=== PATIENT | female | born 1975 | race Caucasian/White ===

== ENCOUNTER 2023-04-22 08:29 | Outpatient (OUT) | payer BC, MEDICAID, SELFPAY ==
[2023-04-22 09:13] LABS: Estimated Average Glucose 103 mg/dL; Glycohemoglobin A1C 5.2 % (4.5-6.2)
[2023-04-22 09:24] LABS: Chol HDL Ratio 4.7; Cholesterol 229 mg/dL (<=200); HDL Cholesterol 49 mg/dL (40-60); Thyroid Stimulating Hormone 5.014 uIU/mL (0.358-3.740); Triglycerides 113 mg/dL (<=150); VLDL CHOLESTEROL 22.6 mg/dL
[2023-04-22 09:44] LABS: Free T4 0.91 ng/dL (0.76-1.46)
== END 2023-04-22 08:30 | disposition home or self-care (01) ==
PROVIDERS: PCP Nurse Practitioner; Visit Provider Nurse Practitioner
DX: E03.9 Hypothyroidism, unspecified (principal); E78.5 Hyperlipidemia, unspecified; E11.9 Type 2 diabetes mellitus without complications
CPT/HCPCS: 36415; 80061; 83036; 84439; 84443

== ENCOUNTER 2023-06-25 08:57 | Outpatient (OUT) | payer BC, MEDICAID, SELFPAY ==
[2023-06-25 10:57] LABS: Alanine Aminotransferase 35 U/L (14-59); Aspartate Amino Transferase 25 U/L (15-37); Chol HDL Ratio 2.7; Cholesterol 163 mg/dL (<=200); HDL Cholesterol 61 mg/dL (40-60); Thyroid Stimulating Hormone 0.345 uIU/mL (0.358-3.740); Triglycerides 87 mg/dL (<=150); VLDL CHOLESTEROL 17.4 mg/dL
[2023-06-25 10:59] LABS: Free T4 1.07 ng/dL (0.76-1.46)
== END 2023-06-25 08:58 | disposition home or self-care (01) ==
LOC: LAB 08:59
PROVIDERS: PCP Nurse Practitioner; Visit Provider Nurse Practitioner
DX: E03.9 Hypothyroidism, unspecified (principal); E78.5 Hyperlipidemia, unspecified
CPT/HCPCS: 36415; 80061; 84439; 84443; 84450; 84460

== ENCOUNTER 2023-08-09 08:38 | Outpatient (OUT) | payer BC, MEDICAID, SELFPAY ==
--- NOTE | 2023-08-09 08:45 | CT_ITS ---
The [address] [address] Patient Name: JONNATHAN SEPULVEDA MRN: [id number] date: 1975 Sex: F Assigned Patient Location: CT Current Patient Location: CT Accession/Order Number: [id number] Exam Date: 08/09/2023 07:50 Report Date: 08/09/2023 10:50 At the request of: ELSI SUAREZ Procedure: CT sinus wo con EXAMINATION: CT sinus wo con HISTORY: Chronic Sinusitis Maxillary Sinuses J32.0 COMPARISON: No relevant comparison available. TECHNIQUE: Axial and Coronal CT images were created without and/or with IV contrast as indicated by examination type. Dose reduction techniques were achieved by using automated exposure control and/or adjustment of mA and/or kV according to patient size and/or use of iterative reconstruction technique. FINDINGS: MAXILLARY SINUSES: No significant mucosal thickening or fluid. Infundibula are patent. No significant anomalous inferior orbital ethmoid (Maria Antonia) air cells. ETHMOID SINUSES: No significant mucosal thickening or fluid. Fovea ethmoidali and lamina papyracea are symmetric and intact. SPHENOID SINUSES: No significant mucosal thickening or fluid. Sphenoethmoidal recesses are patent. No bony dehiscence. FRONTAL SINUSES: No significant mucosal thickening or fluid. Frontal recesses are patent. NASAL FOSSA: deviation of the nasal septum. No yvette bullosa or paradoxical turbinates are identified. OTHER: Negative. Limited views of the skull base and orbits are unremarkable. CT/CT sinus wo con IMPRESSION: 1. No CT evidence of acute or chronic sinusitis. Electronically authenticated by: REG ROYAL Date: 08/09/2023 10:50
--- OUTSIDE RECORDS SUMMARY | 2023-09-14 18:43 | XMS_ITS | CCD ---
Author Name Unknown Address [address] [place] [address] Organization [facility] Care Team Providers Care Distribution Dispatcher Name Role Phone DevoarjhonKaylie hernandes Unavailable Mona Morin Unavailable NO FAMILY, PHYSICIAN Primary Care Provider Unava CHRISTIANO Iqbal Attending Provider [phone] MONA MORIN Primary Care Unavailable [facility], DR ELIAS Attending Unavailable M[facility], DR ELIAS Admitting Unavailable KENDRA SUAREZ ELSI Consulting Unavailable MONA MORIN Consulting Unavailable MONA MORIN Primary Care Unavailable MONA MORIN Admitting Unavailable MONA MORIN Attending Unavailable MONA MORIN Primary Care Unavailable MONA MORIN Admitting Unavailable MONA MORIN Attending Unavailable MONA MORIN Consulting Unavailable Priyanka Jones Unavailable ELSI SUAREZ Attending Unavailable Allergies Allergy Classification Reported Allergen(s) Allergy Type Date of Onset Reaction(s) Facility (5 sources) Cephalexin Drug Allergy rash [facility] Other (12 sources) Cephalexin Drug Allergy rash [facility] Other (1 source) Sulfamethoxazole / Trimethoprim Drug Allergy 3 [facility] Medications Current Medications Medication Drug Class(es) Dates Sig (Normalized) Sig (Original) [id number] 200 actuat albuterol 0.09 mg/actuat metered dose inhaler (6 sources) beta2-Adrenergic Agonist Start: 11-17-2022 take 2 puff(s) by inhalation every four hours as needed Albuterol Sulfate HFA 108 (90 Base) MCG/ACT 2 puffs as needed Inhalation every 4 hrs Oct, Active Start: 09-04-2021 take 2 puff(s) by in halation every four to six hours as needed Albuterol Sulfate HFA 108 (90 Base) MCG/ACT 2 puffs as needed Inhalation every 4-6 hours for 14 days Aug, Active amitriptyline hydrochloride 25 mg oral tablet (11 sources) Tricyclic Antidepressant take 1 tablet by mouth every twenty-four hours amoxicillin 500 mg oral capsule (1 source) Penicillin-class Antibacterial Start: take 2 capsules by mouth every twelve hours Amoxicillin 500 MG 2 capsules Orally Twice a day for 7 days Apr, Active benzonatate 100 mg oral capsule (1 source) Non-narcotic Antitussive Start: take 1 capsule by mouth three times daily as needed Tessalon Perles 100 MG 1 capsule as needed Orally Three times a day for 7 days Aug, Active brompheniramine maleate 0.4 mg/ml / dextromethorphan hydrobromide 2 mg/ml / pseudoephedrine hydrochloride 6 mg/ml oral solution (2 sources) alpha-Adrenergic Agonist, Uncompetitive Z-lffdxi-T-aspartate Receptor Antagonist, Sigma-1 Agonist Start: take 10 mL by mouth every six hours Pseudoeph-Bromphe n-DM 30-2-10 MG/5ML 10 mL Orally every 6 hours for 5 days Aug, Active Diclofenac (11 sources) Nonsteroidal Anti-inflammatory Drug Diclofenac Activ e gabapentin 300 mg oral capsule (11 sources) Anti-epileptic Agent take 1 capsule by mouth every twenty-four hours Handicap placards as directed (8 sources) Start: Handicap placards as directed use as directed to 07/13/2027 as directed as directed Jun, Active lisinopril 2.5 mg oral tablet (11 sources) Angiotensin Converting Enzyme Inhibitor Start: take 1 tablet by mouth every twenty-four hours Lisinopril 2.5 MG 1 tablet Orally Once a day for 30 day(s) Feb, Active meloxicam 15 mg oral tablet (11 sources) Nonsteroidal Anti-inflammatory Drug Start: take 1 tablet by mouth every twenty-four hours 24 hr metFORMIN hydrochloride 500 mg extended release oral tablet (12 sources) Biguanide Start: mometasone furoate 0.05 mg/actuat metered dose nasal spray (17 sources) Corticosteroid Start: 021 take 2 spray(s) nasal route once daily Multi Vitamin/Minerals (17 sources) Multi Vitamin/Mi nerals Orally Active omeprazole 20 mg delayed release oral capsule (17 sources) Proton Pump Inhibitor Start: 07-02-2020 take 1 capsule by mouth once daily Omeprazole 20 MG 1 capsule 30 minutes before morning meal Orally Once a day for 30 days Jun, Active One Touch Glucometer (17 sources) One Touch Glucom eter SQ use 3 times daily for 30 days Active pantoprazole 20 mg delayed release oral tablet (17 sources) Proton Pump Inhibitor Start: 02-04-2021 take 1 tablet by mouth every twenty-four hours prednisoLONE acetate 10 mg/ml ophthalmic suspension (17 sources) Corticosteroid Start: 08-18-2021 take 1 drop(s) into the eye(s) three times daily sertraline 100 mg oral tablet (17 sources) Serotonin Reuptake Inhibitor take 1 tablet by mouth every twenty-four hours Zoloft 100 MG 1 tablet Orally Once a day for 30 day(s) Active tiZANidine 4 mg oral tablet (20 sources) Central alpha-2 Adrenergic Agonist Start: 09-29-2021 take 1 tablet by mouth every eight hours Zanaflex Active triamcinolone acetonide 5 mg /ml topical cream (20 sources) Corticosteroid Start: 08-18-2021 Start: 08-20-2020 KENALOG - 10 m g Jul, 40 mg Start: 08-10-2020 KENALOG - 10 m g Jul, 40 mg Completed/Discontinued Medications Medication Drug Class(es) Dates Sig (Normalized) Sig (Original) azithromycin 250 mg oral tablet (6 sources) Macrolide Antimicrobial Start: 11-17-2022 Azithromycin 250 MG 2 tablets on the first day, then 1 tablet daily for 4 days Orally Once a day for 5 day(s) Oct, Not-Taking Start: 09-04-2021 Azithromycin 2 50 MG 2 tablet on the first day, then 1 tablet daily for 4 days Orally Once a day for 5 day(s) Aug, Active Ketorolac (13 sources) Nonsteroidal Anti-inflammatory Drug, Cyclooxygenase Inhibitor Start: 08-20-2020 Toradol per 15 mg Jul, 30 mg methylPREDNISolone 4 mg oral tablet (13 sources) Corticosteroid Start: 11-17-2022 methylPREDNISolone 4 MG as directed Orally Once a day for 6 days Oct, Not-Taking Start: 09-29-2021 take 4 mg by mouth once daily Start: 08-31-2021 Medrol (Royce) 4 MG as directed Orally for daily dose take half with breakfast half with dinner for 6 days Aug, Active Problems Active Problems Problem Classification Problem Date Documented Date Episodic/Chronic Allergic reactions (17 sources) Atopic dermatitis; Translations: [Atopic dermatitis, unspecified] Chronic Anxiety disorders (11 sources) Generalized anxiety disorder; Translations: [Generalized anxiety disorder] Chronic Asthma (17 sources) Exacerbation of asthma; Translations: [Unspecified asthma with (acute) exacerbation] Chronic Chronic obstructive pulmonary disease and bronchiectasis (2 sources) Bronchitis, not specified as acute or chronic Onset: 08-31-2021 Resolved: 08-31-2021 Episodic Esophageal disorders (20 sources) Gastroesophageal reflux disease; Translations: [Gastro-esophageal reflux disease without esophagitis] Onset: 11-10-2021 Resolved: 02-03-2022 Chronic Essential hypertension (17 sources) Essential hypertension; Translations: [Essential (primary) hypertension] Onset: 03-31-2022 Chronic Headache; including migraine (17 sources) Migraine aura without headache ; Translations: [Migraine with aura, not intractable, without status migrainosus] Chronic Malaise and fatigue (17 sources) Fatigue; Translations: [Chronic fatigue, unspecified] Chronic Malaise and fatigue (1 source) Other fatigue; Translations: [OTHER FATIGUE] Onset: 01-28-2023 Episodic Nutritional deficiencies (17 sources) Vitamin D deficiency; Translations: [Vitamin D deficiency, unspecified] Chronic Other connective tissue disease (11 sources) Fibromyalgia; Translations: [Fibromyalgia] Episodic Other connective tissue disease (1 source) Fibromyalgia Episodic Other endocrine disorders (17 sources) Polycystic ovaries; Translations: [Polycystic ovarian syndrome] Chronic Other endocrine disorders (17 sources) Hypoglycemia; Translations: [Hypoglycemia, unspecified] Chronic Other endocrine disorders (7 sources) Polycystic ovarian syndrome; Translations: [POLYCYSTIC OVARIAN SYNDROME] Onset: 02-03-2022 Resolved: 02-03-2022 Chronic Other endocrine disorders (5 sources) Hypoglycemia, unspecified; Translations: [HYPOGLYCEMIA UNSPECIFIED] Onset: 11-17-2022 Chronic Other nutritional; endocrine; and metabolic disorders (17 sources) Obese class II; Translations: [Body mass index (BMI) 35.0-35.9, adult] Chronic Other nutritional; endocrine; and metabolic disorders (17 sources) Obesity; Translations: [Obesity, unspecified] Chronic Other nutritional; endocrine; and metabolic disorders (1 source) Obesity, unspecified; Translations: [OBESITY UNSPECIFIED] Onset: 01-28-2023 Chronic Other skin disorders (17 sources) Hirsutism; Translations: [Hirsutism] Episodic Other skin disorders (1 source) Other nail disorders Episodic Other upper respiratory infections (1 source) Acute pharyngitis, unspecified Episodic Otitis media and related conditions (1 source) Unspecified nonsuppurative otitis media, right ear Episodic Thyroid disorders (1 source) Hypothyroidism, unspecified; Translations: [HYPOTHYROIDISM UNSPECIFIED] Onset: 01-28-2023 Chronic Past or Other Problems Problem Classification Problem Date Documented Date Episodic/Chronic Immunizations and screening for infectious disease (1 source) Contact with and (suspected) exposure to other viral communicable diseases Onset: 08-31-2021 Resolved: 08-31-2021 Episodic Other non-traumatic joint disorders (1 source) Pain in right hip Onset: 04-02-2022 Resolved: 04-02-2022 Episodic Spondylosis; intervertebral disc disorders; other back problems (2 sources) Sacrococcygeal disorders, not elsewhere classified Onset: 11-10-2021 Resolved: 12-10-2021 Episodic Results Test Name Value Interpretation Reference Range Facil ity Quick Strepon 05-03-2023 S. pyogenes Org specific cx Ql (Throat) Negative [facility] [employer] Other Quick Strep [facility] [employer] Other INSULINon 01-26-2023 Insulin 21.3 uIU/mL Normal 2.6-24.9 [facility] Comment on above: Performed By: #### I NSULIN #### [facility] [address] [place] [address] Dr. Yvan Manzano CORTISOLon 01-23-2023 Cortisol 11.2 ug/dL Normal 6.2-19.4 [facility] Comment on above: Result Comment: [place] Note: The reference interval and flagging for this test is for an AM collection. If this is a PM collection please use: Cortisol PM: 2.3-11.9 [facility] also offers: 153606: Cortisol- AM [id number]: Cortisol- PM Performed By: #### C BC #### [facility] [address] [place] [address] Dr. Yvan Manzano CBC AUTO DIFFon 01-22-2023 BASO # 0.1 103/ul Normal 0.0-0.1 [facility] Comment on above: Performed By: #### C BC #### [facility] [address] [place] [address] Dr. Yvan Manzano Basophils/100 WBC (Bld) 0.9 % Normal 0.2-2.0 [facility] Comment on above: Performed By: #### C BC #### [facility] [address] [place] [address] Dr. Yvan Manzano EO # 0.3 103/ul Normal 0.0-0.7 [facility] Comment on above: Performed By: #### C BC #### [facility] [address] [place] [address] Dr. Yvan Manzano Eosinophils/100 WBC (Bld) 5.7 % Normal 0.9-7.0 [facility] Comment on above: Performed By: #### C BC #### [facility] [address] [place] [address] Dr. Yvan Manzano Erythrocyte distribution wid th (RBC) [Ratio] 14.6 % Normal 11.0-15.0 [facility] Comment on above: Performed By: #### C BC #### [facility] [address] [place] [address] Dr. Yvan Manzano Hematocrit (Bld) [Volume fraction] 36.8 % Normal 3 6.0-48.0 [facility] Comment on above: Performed By: #### C BC #### [facility] [address] [place] [address] Dr. Yvan Manzano Hemoglobin (Bld) [Mass/Vol] 11.4 g/dL Critically low 12.0 -16.0 [facility] Comment on above: Performed By: #### C BC #### [facility] [address] [place] [address] Dr. Yvan Manzano IG # 0.02 10e3/ul Normal 0.00-0.03 [facility] Comment on above: Performed By: #### C BC #### [facility] [address] [place] [address] Dr. Yvan Manzano IG % 0.3 % Normal 0.0-0.5 [facility] Comment on above: Performed By: #### C BC #### [facility] [address] [place] [address] Dr. Yvan Manzano LYMPH # 1.5 103/ul Normal 1.2-3.8 [facility] Comment on above: Performed By: #### C BC #### [facility] [address] [place] [address] Dr. Yvan Manzano Lymphocytes/100 WBC (Bld) 25.3 % Normal 20.5-60.0 [facility] Comment on above: Performed By: #### C BC #### [facility] [address] [place] [address] Dr. Yvan Manzano MANUAL DIFF REQ NO Normal [facility] Comment on above: Performed By: #### C BC #### [facility] [address] [place] [address] Dr. Yvan Manzano MCH (RBC) [Entitic mass] 25.2 pg Critically low 26.7-34 .0 [facility] Comment on above: Performed By: #### C BC #### [facility] [address] [place] [address] Dr. Yvan Manzano MCHC (RBC) [Mass/Vol] 31.0 g/dL Normal 29.9-35.2 [facility] Comment on above: Performed By: #### C BC #### [facility] [address] [place] [address] Dr. Yvan Manzano MCV (RBC) [Entitic vol] 81.4 fL Normal 81.0-99.0 [facility] Comment on above: Performed By: #### C BC #### [facility] [address] [place] [address] Dr. Yvan Manzano MONO # 0.4 103/ul Normal 0.3-0.8 [facility] Comment on above: Performed By: #### C BC #### [facility] [address] [place] [address] Dr. Yvan Manzano Monocytes/100 WBC (Bld) 7.7 % Normal 1.7-12.0 [facility] Comment on above: Performed By: #### C BC #### [facility] [address] [place] [address] Dr. Yvan Manzano NEUT # 3.5 103/ul Normal 1.4-6.5 [facility] Comment on above: Performed By: #### C BC #### [facility] [address] [place] [address] Dr. Yvan Manzano Neutrophils/100 WBC (Bld) 60.1 % Normal 43.0-75.0 [facility] Comment on above: Performed By: #### C BC #### [facility] [address] [place] [address] Dr. Yvan Manzano Platelet mean volume (Bld) [Entitic vol] 8.8 fL Critically low 9.5-13.5 [facility] Comment on above: Performed By: #### C BC #### [facility] [address] [place] [address] Dr. Yvan Manzano PLT 347 103/ul Normal 150-450 [facility] Comment on above: Performed By: #### C BC #### [facility] [address] [place] [address] Dr. Yvan Manzano RBC 4.52 106/ul Normal 4.20-5.40 [facility] Comment on above: Performed By: #### C BC #### [facility] [address] [place] [address] Dr. Yvan Manzano WBC 5.7 103/ul Normal 4.0-11.0 [facility] Comment on above: Performed By: #### C BC #### [facility] [address] [place] [address] Dr. Yvan Manzano FREE T4on 01-22-2023 Free T4 [Mass/Vol] 0.84 ng/dL Normal 0.76-1.46 [facility] Comment on above: Performed By: #### F T4 #### [facility] [address] [place] [address] Dr. Yvan Manzano LIPID PROFILEon 01-22-2023 CHOL-HDL RATIO NORM SEE BELOW Normal [facility] Comment on above: Result Comment: 3.3 - 4.4 LOW RISK 4.4 - 7.1 AVERAGE RISK 7.1 - 11.0 MODERATE RISK >11.0 HIGH RISK Performed By: #### T SH, LIPID #### [facility] [address] [place] [address] Dr. Yvan Manzano Cholesterol [Mass/Vol] 264 mg/dL Critically high <=200 [facility] Comment on above: Performed By: #### T SH, LIPID #### [facility] [address] [place] [address] Dr. Yvan Manzano Cholesterol in HDL [Mass/Vol] 52 mg/dL Normal 40-60 [facility] Comment on above: Performed By: #### T SH, LIPID #### [facility] [address] [place] [address] Dr. Yvan Manzano Cholesterol in LDL [Mass/Vol] 173.6 mg/dL Normal [facility] Comment on above: Performed By: #### T SH, LIPID #### [facility] [address] [place] [address] Dr. Yvan Manzano Cholesterol.total/Cholestero l in HDL [Mass ratio] 5.1 {ratio} Normal [facility] Comment on above: Performed By: #### T SH, LIPID #### [facility] [address] [place] [address] Dr. Yvan Manzano HDL NORMAL > or = 60 mg/dl - LO W CARDIOVASCULAR RISK <40 mg/dl - HIGH CARDIOVASCULAR RISK Normal [facility] Comment on above: Performed By: #### T SH, LIPID #### [facility] [address] [place] [address] Dr. Yvan Manzano LDL CALC NORMAL SEE BELOW Normal [facility] Comment on above: Result Comment: <100 mg/dl OPTIMAL 100 - 129 mg/dl NEAR OR ABOVE OPTIMAL 130 - 159 mg/dl BORDERLINE HIGH 160 - 189 mg/dl HIGH >190 mg/dl VERY HIGH Performed By: #### T SH, LIPID #### [facility] [address] [address] [address] Yvan Manzano Triglyceride [Mass/Vol] 192 mg/dL Critically high <=150 [facility] Comment on above: Performed By: #### T SH, LIPID #### [facility] [address] [place] [address] Dr. Yvan Manzano VLDL CALC 38.4 mg/dL Normal [facility] Comment on above: Performed By: #### T SH, LIPID #### [facility] [address] [place] [address] Dr. Yvan Manzano TSHon 01-22-2023 TSH 5.749 uIU/mL Critically high 0.358-3.740 [facility] Comment on above: Performed By: #### T SH, LIPID #### [facility] [address] [place] [address] Dr. Yvan Manzano GLYCOHEMOGLOBIN A1Con 2022 ADA RECOMMENDATION SEE BELOW Normal [facility] Comment on above: Result Comment: ADA RECOMMENDED LIMIT 4.0 - 6.0 ADA THERAPEUTIC TARGET < 7.0 ACTION SUGGESTED > 7.0 Performed By: #### A 1C #### [facility] [address] [address] [address] Yvan Manzano Glucose [Mass/Vol] 137 mg/dL Normal [facility] Comment on above: Performed By: #### A 1C #### [facility] [address] [place] [address] Dr. Yvan Manzano HbA1c (Bld) [Mass fraction] 6.4 % Critically high 4.5 -6.2 [facility] Comment on above: Performed By: #### A 1C #### [facility] [address] [place] [address] Dr. Yvan Manzano PROF 14(COMP METB)on 023 Albumin [Mass/Vol] 3.4 g/dL Normal 3.4-5.0 [facility] Comment on above: Performed By: #### C MP #### [facility] [address] [place] [address] Dr. Yvan Manzano Albumin/Globulin [Mass ratio] 0.9 {ratio} Normal [facility] Comment on above: Performed By: #### C MP #### [facility] [address] [place] [address] Dr. Yvan Manzano ALP [Catalytic activity/Vol] 74 U/L Normal 46-116 [facility] Comment on above: Performed By: #### C MP #### [facility] [address] [place] [address] Dr. Yvan Manzano ALT [Catalytic activity/Vol] 25 U/L Normal 14-59 [facility] Comment on above: Performed By: #### C MP #### [facility] [address] [place] [address] Dr. Yvan Manzano Anion gap [Moles/Vol] 9.4 mmol/L Normal [facility] Comment on above: Performed By: #### C MP #### [facility] [address] [place] [address] Dr. Yvan Manzano AST [Catalytic activity/Vol] 17 U/L Normal 15-37 [facility] Comment on above: Performed By: #### C MP #### [facility] [address] [place] [address] Dr. Yvan Manzano Bilirubin [Mass/Vol] 0.1 mg/dL Critically low 0.2-1.0 [facility] Comment on above: Performed By: #### C MP #### [facility] [address] [place] [address] Dr. Yvan Manzano Calcium [Mass/Vol] 9.2 mg/dL Normal 8.5-10.1 [facility] Comment on above: Performed By: #### C MP #### [facility] [address] [address] [address] Yvan Manzano Chloride [Moles/Vol] 101 mmol/L Normal 98-107 [facility] Comment on above: Performed By: #### C MP #### [facility] [address] [address] [address] Yvan Manzano CO2 [Moles/Vol] 30.4 mmol/L Normal 21.0-32.0 [facility] Comment on above: Performed By: #### C MP #### [facility] [address] [address] [address] Yvan Manzano Creatinine [Mass/Vol] 0.71 mg/dL Normal 0.55-1.02 [facility] Comment on above: Performed By: #### C MP #### [facility] [address] [address] [address] Yvan Manzano EGFR-AF MALTESE >60 Normal >=60 [facility] Comment on above: Performed By: #### C MP #### [facility] [address] [address] [address] Yvan Manzano EGFR-NON AF MALTESE >60 Normal >=60 [facility] Comment on above: Performed By: #### C MP #### [facility] [address] [address] [address] Yvan Manzano Globulin (S) [Mass/Vol] 4.0 g/dL Normal [facility] Comment on above: Performed By: #### C MP #### [facility] [address] [address] [address] Yvan Manzano Glucose [Mass/Vol] 138 mg/dL Critically high 74-106 [facility] Comment on above: Performed By: #### C MP #### [facility] [address] [address] [address] Yvan Manzano Potassium [Moles/Vol] 3.8 mmol/L Normal 3.5-5.1 [facility] Comment on above: Performed By: #### C MP #### [facility] [address] [address] [address] Yvan Manzano Protein [Mass/Vol] 7.4 g/dL Normal 6.4-8.2 [facility] Comment on above: Performed By: #### C MP #### [facility] [address] [address] [address] Yvan Manzano Sodium [Moles/Vol] 137 mmol/L Normal 136-145 [facility] Comment on above: Performed By: #### C MP #### [facility] [address] [address] [address] Yvan Manzano Urea nitrogen [Mass/Vol] 13.0 mg/dL Normal 7.0-18.0 [facility] Comment on above: Performed By: #### C MP #### [facility] [address] [place] [address] Dr. Yvan Manzano Urea nitrogen/Creatinine [Mass ratio] 18.3 mg/mg Normal [facility] Comment on above: Performed By: #### C MP #### [facility] [address] [place] [address] Dr. Yvan Manzano LIPID PROFILEon 03-31-2022 CHOL-HDL RATIO NORM SEE BELOW Normal [facility] Comment on above: Result Comment: 3.3 - 4.4 LOW RISK 4.4 - 7.1 AVERAGE RISK 7.1 - 11.0 MODERATE RISK >11.0 HIGH RISK Performed By: #### C MP, LIPID #### [facility] [address] [address] [address] Yvan Manzano Cholesterol [Mass/Vol] 229 mg/dL Critically high <=200 [facility] Comment on above: Performed By: #### C MP, LIPID #### [facility] [address] [address] [address] Yvan Manzano Cholesterol in HDL [Mass/Vol] 51 mg/dL Normal 40-60 [facility] Comment on above: Performed By: #### C MP, LIPID #### [facility] [address] [address] [address] Yvan Manzano Cholesterol in LDL [Mass/Vol] 150.4 mg/dL Normal [facility] Comment on above: Performed By: #### C MP, LIPID #### [facility] [address] [address] [address] Yvan Manzano Cholesterol.total/Cholestero l in HDL [Mass ratio] 4.5 {ratio} Normal [facility] Comment on above: Performed By: #### C MP, LIPID #### [facility] [address] [address] [address] Yvan Manzano HDL NORMAL > or = 60 mg/dl - LO W CARDIOVASCULAR RISK <40 mg/dl - HIGH CARDIOVASCULAR RISK Normal [facility] Comment on above: Performed By: #### C MP, LIPID #### [facility] [address] [place] [address] Dr. Yvan Manzano LDL CALC NORMAL SEE BELOW Normal The [facility] Comment on above: Result Comment: <100 mg/dl OPTIMAL 100 - 129 mg/dl NEAR OR ABOVE OPTIMAL 130 - 159 mg/dl BORDERLINE HIGH 160 - 189 mg/dl HIGH >190 mg/dl VERY HIGH Performed By: #### C MP, LIPID #### [facility] [address] [place] [address] Dr. Yvan Manzano Triglyceride [Mass/Vol] 138 mg/dL Normal <=150 [facility] Comment on above: Performed By: #### C MP, LIPID #### [facility] [address] [address] [address] Yvan Manzano VLDL CALC 27.6 mg/dL Normal The [facility] Comment on above: Performed By: #### C MP, LIPID #### [facility] [address] [place] [address] Dr. Yvan Manzano MICROALB CREAT RATIO RANDOMo n 03-31-2022 mALB 1.4 mg/L Normal <=30.0 The [facility] Comment on above: Performed By: #### M CRR #### [facility] [address] [place] [address] Dr. Yvan Manzano MALB CR RATIO 6.0 mg/g Normal 0.0-29.9 The [facility] Comment on above: Performed By: #### M CRR #### [facility] [address] [place] [address] Dr. Yvan Manzano MALB CR RATIO RANGE SEE BELOW Normal [facility] Comment on above: Result Comment: NO M ICROALBUMINURIA 0-29 MG/G CLINICAL MICROALBUMINURIA 30-300 MG/G MACROALBUMINURIA >300 MG/G Performed By: #### M CRR #### [facility] [address] [address] [address] Yvan Manzano URINE CREAT 232.88 mg/dL Normal 20.00-300.00 [facility] Comment on above: Performed By: #### M CRR #### [facility] [address] [place] [address] Dr. Yvan Manzano PROF 14(COMP METB)on 022 Albumin [Mass/Vol] 3.6 g/dL Normal 3.4-5.0 [facility] Comment on above: Performed By: #### C MP, LIPID #### [facility] [address] [place] [address] Dr. Yvan Manzano Albumin/Globulin [Mass ratio] 0.9 {ratio} Normal [facility] Comment on above: Performed By: #### C MP, LIPID #### [facility] [address] [place] [address] Dr. Yvan Manzano ALP [Catalytic activity/Vol] 63 U/L Normal 46-116 [facility] Comment on above: Performed By: #### C MP, LIPID #### [facility] [address] [place] [address] Dr. Yvan Manzano ALT [Catalytic activity/Vol] 33 U/L Normal 14-59 [facility] Comment on above: Performed By: #### C MP, LIPID #### [facility] [address] [place] [address] Dr. Yvan Manzano Anion gap [Moles/Vol] 11.7 mmol/L Normal [facility] Comment on above: Performed By: #### C MP, LIPID #### [facility] [address] [place] [address] Dr. Yvan Manzano AST [Catalytic activity/Vol] 23 U/L Normal 15-37 [facility] Comment on above: Performed By: #### C MP, LIPID #### [facility] [address] [place] [address] Dr. Yvan Manzano Bilirubin [Mass/Vol] 0.2 mg/dL Normal 0.2-1.0 [facility] Comment on above: Performed By: #### C MP, LIPID #### [facility] [address] [place] [address] Dr. Yvan Manzano Calcium [Mass/Vol] 9.5 mg/dL Normal 8.5-10.1 [facility] Comment on above: Performed By: #### C MP, LIPID #### [facility] [address] [place] [address] Dr. Yvan Manzano Chloride [Moles/Vol] 102 mmol/L Normal 98-107 [facility] Comment on above: Performed By: #### C MP, LIPID #### [facility] [address] [place] [address] Dr. Yvan Manzano CO2 [Moles/Vol] 28.0 mmol/L Normal 21.0-32.0 [facility] Comment on above: Performed By: #### C MP, LIPID #### [facility] [address] [place] [address] Dr. Yvan Manzano Creatinine [Mass/Vol] 0.71 mg/dL Normal 0.55-1.02 [facility] Comment on above: Performed By: #### C MP, LIPID #### [facility] [address] [place] [address] Dr. Yvan Manzano EGFR-AF MALTESE >60 Normal >=60 [facility] Comment on above: Performed By: #### C MP, LIPID #### [facility] [address] [place] [address] Dr. Yvan Manzano EGFR-NON AF MALTESE >60 Normal >=60 [facility] Comment on above: Performed By: #### C MP, LIPID #### [facility] [address] [place] [address] Dr. Yvan Manzano Globulin (S) [Mass/Vol] 4.0 g/dL Normal T [facility] Comment on above: Performed By: #### C MP, LIPID #### [facility] [address] [address] [address] Yvan Manzano Glucose [Mass/Vol] 87 mg/dL Normal 74-106 [facility] Comment on above: Performed By: #### C MP, LIPID #### [facility] [address] [address] [address] Yvan Manzano Potassium [Moles/Vol] 3.7 mmol/L Normal 3.5-5.1 [facility] Comment on above: Performed By: #### C MP, LIPID #### [facility] [address] [address] [address] Yvan Manzano Protein [Mass/Vol] 7.6 g/dL Normal 6.4-8.2 [facility] Comment on above: Performed By: #### C MP, LIPID #### [facility] [address] [address] [address] Yvan Manzano Sodium [Moles/Vol] 138 mmol/L Normal 136-145 [facility] Comment on above: Performed By: #### C MP, LIPID #### [facility] [address] [address] [address] Yvan Manzano Urea nitrogen [Mass/Vol] 14.0 mg/dL Normal 7.0-18.0 [facility] Comment on above: Performed By: #### C MP, LIPID #### [facility] [address] [place] [address] Dr. Yvan Manzano Urea nitrogen/Creatinine [Mass ratio] 19.7 mg/mg Normal [facility] Comment on above: Performed By: #### C MP, LIPID #### [facility] [address] [address] [address] Yvan Manzano XR hip RT min 2V(w/wo pelvis )*on 03-26-2022 XR hip RT min 2V(w/wo pelvis)* [facility] [place] [address] XRay Report Signed Patient: Tatiana Sepulveda MR#: [id number] : 1975 Acct:[id number] Age/Sex: 46 / F ADM Date: 03/26/22 Loc: XDCLY Room: Type: [facility] CLI Attending Dr: Mona ALVARADO Copies to: MONA MORIN Ordering Provider: MONA MORIN Date of Service: 03/26/22 XR/XR hip RT min 2V(w/wo pelvis)*: Right hip pain 2 views RIGHT hip single view pelvisplain film COMPARISON:None HISTORY:Lateral RIGHT hip pain for one year No fracture, dislocation or focal soft tissue abnormality seen.No significant degeneration. Articular surfaces preserved. XR/XR hip RT min 2V(w/wo pelvis)* IMPRESSION:Unremarkable exam Impression dictated by: Michael Harper M.D.03/26/2022 3:38 PM Dictation Location: [place] [address] Transcribed By: [facility] 03/26/22 1538 Dictated By: Michael Harper DO 03/26/22 1534 Signed By: 03/26/22 1538 Normal [facility] XR sacrum coccyx min 2Von XR sacrum coccyx min 2V [facility] [place] [address] XRay Report Signed Patient: Tatiana Sepulveda MR#: [id number] : 1975 Acct:[id number] Age/Sex: 45 / F ADM Date: 09/29/21 Loc: XDUCLY Room: [facility] Attending Dr: Mona ALVARADO Ordering Provider: MONA MORIN Date of Service: 09/29/21 XR/XR sacrum coccyx min 2V: Sacral back pain Copies to: MONA MORIN XR sacrum coccyx min 2V 09/29/2021 3:42 PM SIGNS AND SYMPTOMS: Fall injuring coccyx with pain along the anterior aspect of the coccyx. Previous history of coccygeal fracture PROTOCOL: Frontal and lateral radiographs of the sacrum and coccyx COMPARISON: None FINDINGS: There is mild degenerative change of the sacroiliac joints. There is no evidence of displaced fracture. The bony ring of the pelvis is intact. The sacrum and coccyx are intact. XR/XR sacrum coccyx min 2V IMPRESSION: No acute bony injury. Impression dictated by: Laron Villegas M.D.09/29/2021 4:16 PM Dictation Location: [place] [address] Transcribed By: [facility] 09/29/21 161 Dictated By: Laron Villegas II, MD 09/29/211612 Signed By: 09/29/21 161 [facility] COVID Quick Testingon 2020 Result Negative [facility] [employer] Other Vital Signs Date Time Vital Sign Value Performing Clinician Facility 05-03-2023 09:05-0400 Body height 157.48 cm Priyankarogelio Jones Other [facility] Other 05-03-2023 09:05-0400 Body mass index (BMI) [Ratio] 35.02 kg/m2 Priyanka Karen Other [facility] Other 05-03-2023 09:05-0400 Body temperature 97.5 [degF] Priyanka Jones Other [facility] Other 05-03-2023 09:05-0400 Body weight 86.86 kg Priyanka Jones Other [facility] Other 05-03-2023 09:05-0400 Diastolic blood pressure 76 mm[Hg] Priyanka Jones Other [facility] Other 05-03-2023 09:05-0400 Respiratory rate 18 /min Priyanka Jones Other [facility] Other 05-03-2023 09:05-0400 SaO2% (BldA) [Mass fraction] 100 % Priyanka Jones Other [facility] Other 05-03-2023 09:05-0400 Systolic blood pressure 117 mm[Hg] Priyanka Jones Other [facility] Other 11-17-2022 11:30-0500 Body height 157.48 cm Mona Morin Other [facility] Other 11-17-2022 11:30-0500 Body mass index (BMI) [Ratio] 35.3 kg/m2 Mona Yeungault Other [facility] Other 11-17-2022 11:30-0500 Body temperature 98.7 [degF] Mona Yeungault Other [facility] Other 11-17-2022 11:30-0500 Body weight 87.54 kg Mona Morin Other [facility] Other 11-17-2022 11:30-0500 Respiratory rate 18 /min Mona Morin Other [facility] Other 11-17-2022 11:30-0500 SaO2% (BldA) [Mass fraction] 98 % Mona Morin Other [facility] Other 09-28-2022 16:30-0500 Body height 157.48 cm Mona Yeungault Other [facility] Other 09-28-2022 16:30-0500 Body mass index (BMI) [Ratio] 35.3 kg/m2 Mona Shane Other [facility] Other 09-28-2022 16:30-0500 Body temperature 98 [degF] Mona Morin Other [facility] Other 09-28-2022 16:30-0500 Body weight 87.54 kg Mona Morin Other [facility] Other 09-28-2022 16:30-0500 Diastolic blood pressure 79 mm[Hg] Mona Yeungault Other [facility] Other 09-28-2022 16:30-0500 Respiratory rate 18 /min Mona Morin Other [facility] Other 09-28-2022 16:30-0500 SaO2% (BldA) [Mass fraction] 98 % Mona Morin Other [facility] Other 09-28-2022 16:30-0500 Systolic blood pressure 130 mm[Hg] Mona Morin Other [facility] Other 07-14-2022 15:00-0400 Body height 157.48 cm Mona Yeungault Other [facility] Other 07-14-2022 15:00-0400 Body mass index (BMI) [Ratio] 35.66 kg/m2 Mona Yeungault Other [facility] Other 07-14-2022 15:00-0400 Body weight 88.45 kg Mona Yeungault Other [facility] Other 07-14-2022 15:00-0400 Diastolic blood pressure 89 mm[Hg] Mona Yeungault Other [facility] Other 07-14-2022 15:00-0400 Respiratory rate 18 /min Mona Morin Other [facility] Other 07-14-2022 15:00-0400 SaO2% (BldA) [Mass fraction] 98 % Mona Morin Other [facility] Other 07-14-2022 15:00-0400 Systolic blood pressure 145 mm[Hg] Mona Morin Other [facility] Other 06-30-2022 12:00-0400 Body height 157.48 cm Mona Morin Other [facility] Other 06-30-2022 12:00-0400 Body mass index (BMI) [Ratio] 35.48 kg/m2 Mona Morin Other [facility] Other 06-30-2022 12:00-0400 Body temperature 97.7 [degF] Mona Morin Other [facility] Other 06-30-2022 12:00-0400 Body weight 88 kg Mona Morin Other [facility] Other 06-30-2022 12:00-0400 Diastolic blood pressure 87 mm[Hg] Mona Morin Other [facility] Other 06-30-2022 12:00-0400 Respiratory rate 18 /min Mona Morin Other [facility] Other 06-30-2022 12:00-0400 SaO2% (BldA) [Mass fraction] 97 % Mona Morin Other [facility] Other 06-30-2022 12:00-0400 Systolic blood pressure 136 mm[Hg] Mona Morin Other [facility] Other 02-03-2022 11:00-0400 Body height 157.48 cm Mona Morin Other [facility] Other 02-03-2022 11:00-0400 Body mass index (BMI) [Ratio] 35.84 kg/m2 Mona Morin Other [facility] Other 02-03-2022 11:00-0400 Body temperature 98.2 [degF] Mona Morin Other [facility] Other 02-03-2022 11:00-0400 Body weight 88.91 kg Mona Morin Other [facility] Other 02-03-2022 11:00-0400 Diastolic blood pressure 96 mm[Hg] Mona Morin Other [facility] Other 02-03-2022 11:00-0400 Respiratory rate 18 /min Mona Morin Other [facility] Other 02-03-2022 11:00-0400 SaO2% (BldA) [Mass fraction] 99 % Mona Yeungault Other [facility] Other 02-03-2022 11:00-0400 Systolic blood pressure 157 mm[Hg] Mona Yeungault Other [facility] Other 08-31-2021 10:00-0500 Body height 157.48 cm Kaylie Ginty Other [facility] Other 08-31-2021 10:00-0500 Body mass index (BMI) [Ratio] 35.66 kg/m2 Kaylie Ginty Other [facility] Other 08-31-2021 10:00-0500 Body temperature 98.7 [degF] Kaylie Ginty Other [facility] Other 08-31-2021 10:00-0500 Body weight 88.45 kg Kaylie Ginty Other [facility] Other 08-31-2021 10:00-0500 Respiratory rate 18 /min Kaylie Ginty Other [facility] Other 08-31-2021 10:00-0500 SaO2% (BldA) [Mass fraction] 95 % Kaylie Ginty Other [facility] Other Encounters Encounter Date Encounter Type Care Provider Facility Start: 09-13-2023 End: 09-13-2023 ambulatory ELSI SUAREZ Not Available Start: 05-03-2023 End: 05-03-2023 ambulatory Priyanka Jones Other [facility] Other Start: 05-03-2023 Office outpatient visit 15 minutes Priyanka Jones [facility] Start: 01-22-2023 End: 01-23-2023 ambulatory MONA MORIN Facility: Start: 11-23-2022 End: 11-23-2022 ambulatory Mona Morin Other [facility] Other Start: 11-23-2022 Telephone encounter Mona Breaul t [facility] Start: 11-20-2022 End: 11-20-2022 ambulatory Mona Morin Other [facility] Other Start: 11-20-2022 Encounter by juan treviño Mona Morin [facility] Start: 11-17-2022 End: 11-18-2022 ambulatory MONA MORIN [facility] [place] [employer] Other Start: 11-17-2022 Office outpatient visit 15 minutes Monalawanda Morin [facility] Start: 10-06-2022 End: 10-06-2022 ambulatory Monalawanda Morin Other [facility] Other Start: 10-06-2022 Telephone encounter Mona Palmerl t [facility] Start: 09-29-2022 End: 09-29-2022 ambulatory PHYSICIAN NO [facility] Work Phone: Start: 09-29-2022 End: 09-29-2022 Departed Referred PHYSICIAN NO [facility] [place] Work Phone: Start: 09-28-2022 End: 09-28-2022 ambulatory Mona Morin Other [facility] Other Start: 09-28-2022 Office outpatient visit 15 minutes Monalawanda Morin [facility] Start: 09-14-2022 End: 09-14-2022 ambulatory Mona Morin Other [facility] Other Start: 09-14-2022 Telephone encounter Monalawanda Palmerl t [facility] Start: 07-14-2022 End: 07-14-2022 ambulatory Monalawanda Morin Other [facility] Other Start: 07-14-2022 Office outpatient visit 15 minutes Mona Shane [facility] Start: 06-30-2022 End: 06-30-2022 ambulatory Monalawanda Morin Other [facility] Other Start: 06-30-2022 Office outpatient visit 15 minutes Monalawanda Morin [facility] Start: 04-02-2022 End: 04-02-2022 ambulatory Monalawanda Morin Other [facility] Other Start: 04-02-2022 Telephone encounter Mona Bretrevorl t [facility] Start: 03-31-2022 Telephone encounter Mona Breaul t [facility] Start: 03-31-2022 End: 04-01-2022 ambulatory MONALAWANDA MORIN [employer] Other Start: 02-03-2022 End: 02-03-2022 ambulatory Monalawanda Morin Other [facility] Other Start: 02-03-2022 Office outpatient visit 15 minutes Monalawanda Morin [facility] Start: 12-10-2021 End: 12-10-2021 ambulatory Monalawanda Morin Other [facility] Other Start: 12-10-2021 Telephone encounter Mona Breaul t [facility] Start: 11-10-2021 End: 11-10-2021 ambulatory Monalawanda Morin Other [facility] Other Start: 11-10-2021 Telephone encounter Mona Breaul t [facility] Start: 09-03-2021 End: 09-03-2021 ambulatory Kaylie Ginty Other [facility] Other Start: 09-03-2021 Telephone encounter Kaylie Ginty [facility] Start: 08-31-2021 End: 08-31-2021 ambulatory Kaylie Echeverria Other [facility] Other Start: 08-31-2021 Office outpatient visit 15 minutes Kaylie Echeverria [facility] Plan of Treatment Date Care Activity Detail Author Start: 09-29-2022 Aerobic Culture Aerobic Culture [facility] Start: 09-29-2022 Anaerobic Culture Anaerobic Culture [facility] Start: 09-29-2022 Microscopic observat ion [Identifier] in Unspecified specimen by Gram stain Gram Stain [facility] Bacteria identified in Unspecified specimen by Aerobe culture [facility] Bacteria identified in Unspecified specimen by Anaerobe culture [facility] Payers Date Payer Category Payer Medicaid [id number] 2. [id number] 1975 Unknown [id number] [id number] [id number] 1975 Unknown [id number] 2.16.84 [id number] 1975 Unknown [id number] 2.16.84 [id number] 1975 Unknown [id number] 1958 Unknown [id number] 2.1 [id number] 1958 Unknown [id number] [facility] [id number] Self-pay Self Pay [id number] Unknown [id number] 2.1 [id number] Social History Date Type Detail Facility Unknown if ever smoked [facility] Other Sex Assigned At Sex Assigned At Bir th [facility] Other Start: 1975 Sex Assigned At Female F [facility] Medical Equipment Procedure Code Equipment Code Equipment Origin al Text Equipment Identifier Dates Start: 06-04-2020 Clinical Notes 08-31-2021 to 05-03-2023 Note Date & Type Note Facility 05-03-2023 Evaluation note Encounter Date Diagnosis Assessment Notes Apr, Sore throat (ICD-10 - J02.9) Apr, Right otitis media with effusion (ICD-10 - H65.91) Discussed exam and history consistent with otitis media. Will treat with HD amoxil. Finish entire course. Probiotic supplement encouraged to prevent GI side effects. May use Tylenol and ibuprofen for any discomfort. Encouraged to restart Claritin, Flonase to help with effusion posterior to TM. Follow-up with PCP in 5 to 6 days for recheck, sooner if significantly worsening symptoms or continuing fever. Patient/Parent verbalized understanding of treatment plan. [facility] Other 02-21-2023 Evaluation note* Encounter Date Diagnosis Assessment Notes Treatment Notes Treatment Clinical Notes Oct, Hypoglycemia (ICD-10 - E16.2) Continue current treatment as discussed and refills sent Oct, Bronchitis (ICD-10 - J40) Take medications as directed. Rest and increase fluid intake. Take meds with food to prevent stomach upset. Use inhaler as needed for coughing spells and SOB. It is better to use inhaler a few times a day over the next 2-3 days. Follow up with primary care provider if symptoms do not improve with treatment plan, although it may take a few weeks for the cough to go away [facility] Other 01-02-2023 Evaluation note* Encounter Date Diagnosis Assessment Notes Treatment Notes Treatment Clinical Notes Sep, SJ (generalized anxiety disorder) (ICD-10 - F41.1) Continue current treatment plan at this time Sep, Gastroesophageal ref lux disease, unspecified whether esophagitis present (ICD-10 - K21.9) Continue current treatment plan at this time Sep, Primary hypertension (ICD-10 - I10) Continue current treatment plan at this time Sep, PCOS (polycystic ovarian syndrome) (ICD-10 - E28.2) Continue current treatment plan at this time Sep, Ragged cuticle (ICD- 10 - L60.8) Dressing applied in office and Culture obtained for C&S. Will call with results. [facility] Other 12-19-2022 Evaluation note* Encounter Date Diagnosis Assessment Notes Treatment Notes Treatment Clinical Notes Aug, Gastroesophageal ref lux disease, unspecified whether esophagitis present (ICD-10 - K21.9) Aug, PCOS (polycystic ovarian syndrome) (ICD-10 - E28.2) [facility] Other 10-18-2022 Evaluation note* Encounter Date Diagnosis Assessment Notes Treatment Notes Treatment Clinical Notes Jun, Fibromyalgia (ICD-10 - M79.7) Continue current treatment regimen. Printed off script to use as needed [facility] Other 10-04-2022 Evaluation note* Encounter Date Diagnosis Assessment Notes Treatment Notes Treatment Clinical Notes Jun, Primary hypertension (ICD-10 - I10) Jun, SJ (generalized anxiety disorder) (ICD-10 - F41.1) [facility] Other 07-07-2022 Evaluation note* Encounter Date Diagnosis Assessment Notes Treatment Notes Treatment Clinical Notes Mar, Right hip pain (ICD-10 - M25.551) [facility] Other 05-10-2022 Evaluation note* Encounter Date Diagnosis Assessment Notes Treatment Notes Treatment Clinical Notes January, Gastroesophageal ref lux disease, unspecified whether esophagitis present (ICD-10 - K21.9) Continue to take medication as directed. January, PCOS (polycystic ovarian syndrome) (ICD-10 - E28.2) Take medication as directed with food [facility] Other 03-16-2022 Evaluation note* Encounter Date Diagnosis Assessment Notes Treatment Notes Treatment Clinical Notes Nov, Sacral back pain (ICD-10 - M53.3) [facility] Other 02-14-2022 Evaluation note* Encounter Date Diagnosis Assessment Notes Treatment Notes Treatment Clinical Notes Oct, Gastroesophageal ref lux disease, unspecified whether esophagitis present (ICD-10 - K21.9) [facility] Other 02-14-2022 Evaluation note* Encounter Date Diagnosis Assessment Notes Treatment Notes Treatment Clinical Notes Oct, Sacral back pain (ICD-10 - M53.3) [facility] Other 2021 Evaluation note* Encounter Date Diagnosis Assessment Notes Treatment Notes Treatment Clinical Notes Aug, Bronchitis (ICD-10 - J40) Advised patient that rapid COVID antigen test today in office was negative. Discussed diagnosis with patient in detail. Will treat as viral today based on physcial exam and duration of symptoms, antibiotics are not indicated for viral infections. Advised patient that viral syndromes last 7-10 days, cough may linger for 3 weeks. Take medications as prescribed, reviewed side effects of steroid, take with food and plenty of water. Supportive care as directed, push fluids and rest, may use tylenol/motrin as needed for fever/discomfort, cool mist humidifier. May use Bromfed as needed for cough/congestion, do not take any other OTCs while using Bromfed. Encouraged use of albuterol inhaler after coughing fits. Patient to follow up with PCP if symptoms do not improve. Immediate eval if SOB, difficulty breathing, chest pain, dizziness, or other concerning symptoms. Patient verbalizes understanding and is agreeable to treatment plan Aug, Contact with and (suspected) exposure to other viral communicable diseases (ICD-10 - Z20.828) Aug, Other Additional time spent conducting pre-visit phone call, screening for symptoms, instructions on social distancing, application and removal of PPE, and cleaning of examination room, equipment and supplies was preformed. Patient education given for testing methodology and results. Patient care instructions given in writting by [facility] Care At Home document. [facility] Other Evaluation noteNo InformationNort [employer] Other Evaluation noteNo assessment information available [facility] Work Phone: History general Narrative - Reported* Type Description Date Medical History asthma Medical History pcos Medical History Fibromyalgia Medical History Hypothyroidism - euthyroid Medical History chronic fatigue Surgical History gall bladder Surgical History vein removed in bilaterally Surgical History gastric sleeve Hospitalization History see above Hospitalization History [facility] [employer] Other Reason for visit NarrativeDermatology Referral Update [facility] Other Summary Purpose Family History No Family History Records FoundNo Family History Records FoundNo Family History Records Found Advance Directives No Advanced Directives Records Found Advance Directive Response Recorded Date/ Time Advance Directives No July 12:06pm Chief Complaint and Reason for Visit Chief Complaint Ragged cuticle Additional Source Comments REASON FOR VISIT (unrecogniz ed section and content) #1 BLACK DODGE, CHEST CONGES TIONNo InformationNo InformationNo InformationNo InformationF/Shruthi InformationNo InformationFOLLOW UP HTNUPDATED HANDICAP PLACARDNo InformationFOLLOW UP SJ, Grady AnxietyNo InformationF/U MED CHECKFollow up on lab results for myself and Marrahtonsils and right ear INFORMATION SOURCE (unrecogn ized section and content) DATE CREATED AUTHOR 03/27/2022 [facility] DATE CREATED AUTHOR AUTHOR'S ORGANIZ ATION [facility] DATE CREATED AUTHOR AUTHOR'S ORGANIZ ATION 09/13/2023 [facility] EPIC Care Teams (unrecognized sec tion and content) Team Status: Inactive Member Role Status Dates PHYSICIAN NO FAMILY Primary Care Provider Active CHRISTIANO Jha Attending Provider Active Team Status: Active Member Role Status Dates PHYSICIAN NO FAMILY Primary Care Provider Active Goals (unrecognized section and content) Goals may be documented in a n alternate section FOR RECORDS PERTAINING TO PATIENTS WHO ARE OR HAVE BEEN ENROLLED IN A CHEMICAL DEPENDENCY/SUBSTANCEABUSE PROGRAM, SOME INFORMATION MAY BE OMITTED. This clinical summary was aggregated from multiple sources. Caution should be exercised in using it in the provision of clinical care. This summary normalizes information from multiple sources, and as a consequence, information in this document may materially change the coding, format and clinical context of patient data. In addition, data may be omitted in some cases. CLINICAL DECISIONS SHOULD BE BASED ON THE PRIMARY CLINICAL RECORDS. [employer] [facility]. provides no warranty or guarantee of the accuracy or completeness of information in this document.
--- NOTE | 2023-12-11 | CT_ITS ---
[address] [address] Patient Name: JONNATHAN SEPULVEDA MRN: [id number] date: 1975 Sex: F Assigned Patient Location: CT Current Patient Location: CT Accession/Order Number: [id number] Exam Date: 12/11/2023 10:17 Report Date: 12/13/2023 07:09 At the request of: ELSI SUAREZ Procedure: CT ankle LT wo con EXAMINATION: CT ankle LT wo con HISTORY: ANKLE DJD COMPARISON: No relevant comparison available. TECHNIQUE: Multi-planar CT images were created without IV contrast. Dose reduction techniques were achieved by using automated exposure control and/or adjustment of mA and/or kV according to patient size and/or use of iterative reconstruction technique. FINDINGS: BONES: Ankle fusion with a talus spacer. Retrograde intramedullary guillaume and proximally and distally. Moderate to severe diffuse degenerative changes with joint space narrowing marginal osteophyte formation and heterotopic ossification. Subchondral lytic changes suggests underlying osteopenia. Remote resection of the distal fibula with calcification of the tibiofibular syndesmosis. Moderate enthesopathic spurring of the calcaneus at the Achilles and plantar insertions SOFT TISSUES: Extensive atherosclerosis. Soft tissue calcifications. EFFUSION: None visible. OTHER: Negative.
== END 2023-08-09 08:39 | disposition home or self-care (01) ==
LOC: CT 08:38
PROVIDERS: PCP Nurse Practitioner; Visit Provider Nurse Practitioner
DX: J32.0 Chronic maxillary sinusitis (principal)
CPT/HCPCS: 70486

== ENCOUNTER 2023-09-14 15:54 | Outpatient (OUT) | payer BC, MEDICAID, SELFPAY ==
[2023-09-14 16:06] LABS: Bilirubin Urine NEGATIVE (NEGATIVE); Blood Urine NEGATIVE (NEGATIVE); Clarity Urine CLEAR (CLEAR); Color Urine YELLOW (YELLOW); Glucose Urine UA NEGATIVE (NEGATIVE); Ketones Urine NEGATIVE (NEGATIVE); Leukocyte Esterase Urine NEGATIVE (NEGATIVE); Nitrite Urine NEGATIVE (NEGATIVE); Protein Urine NEGATIVE (NEG/TRACE); Urobilinogen Urine 0.2 EU/dL (0.2-1.0)
[2023-09-14 16:07] LABS: Urine Microscopic Indicated NO
[2023-09-14 16:15] LABS: Creatinine Urine Random 142.09 mg/dL (20.00-300.00); Microalbumin Urine Random <1.3 mg/dL (<=30.0)
[2023-09-14 16:17] LABS: Estimated Average Glucose 128 mg/dL; Glycohemoglobin A1C 6.1 % (4.5-6.2)
[2023-09-14 16:37] LABS: Free T4 0.87 ng/dL (0.76-1.46)
[2023-09-14 16:40] LABS: Anion Gap 12.1; Calcium 8.9 mg/dL (8.5-10.1); Carbon Dioxide 27.7 mmol/L (21.0-32.0); Chloride 101 mmol/L (98-107); Estimated GFR (African America >60 (>=60); Estimated GFR (Non-African Ame >60 (>=60); Glucose 94 mg/dL (74-106); Potassium 3.8 mmol/L (3.5-5.1); Sodium 137 mmol/L (136-145); Thyroid Stimulating Hormone 0.683 uIU/mL (0.358-3.740)
== END 2023-09-14 15:55 | disposition home or self-care (01) ==
LOC: LAB 15:54
PROVIDERS: PCP Nurse Practitioner; Visit Provider Nurse Practitioner
DX: E03.9 Hypothyroidism, unspecified (principal); E11.9 Type 2 diabetes mellitus without complications; I10 Essential (primary) hypertension
CPT/HCPCS: 36415; 80048; 81003; 82043; 82570; 83036; 84439; 84443

== ENCOUNTER 2023-09-16 08:46 | Outpatient (OUT) | payer BC, MEDICAID, SELFPAY ==
[2023-09-16 09:30] LABS: Magnesium 1.8 mg/dL (1.8-2.4); Phosphorus 4.3 mg/dL (2.6-4.7)
== END 2023-09-16 08:47 | disposition home or self-care (01) ==
PROVIDERS: PCP Nurse Practitioner; Visit Provider Nurse Practitioner Family
DX: G25.81 Restless legs syndrome (principal)
CPT/HCPCS: 36415; 82607; 82728; 82746; 83735; 84100

== ENCOUNTER 2023-10-04 08:47 | Outpatient (OUT) | payer BC, MEDICAID, SELFPAY ==
--- NOTE | 2023-10-04 08:49 | VEIN_ITS ---
Patient Name: JONNATHAN SEPULVEDA MR#: [id number] : 1975 Exam Date: 10/04/2023 Ordering Doctor: KENDRA Moncada CNP RADIOLOGY REPORT PROCEDURE: FACILITY [facility] COM[facility] - OFFICE VISIT INITIAL COMPARISON: None. PROGRESS NOTES: 47-year-old female who presents with a 15 year history of lower extremity pain swelling and varicose veins. The patient's symptoms have significantly progressed in the past 6 months. The patient complains leg pain described as aching burning and throbbing rated as a 5 on a scale of 1-10. The patient complains leg swelling. The patient's symptoms are exacerbated by prolonged sitting and standing required as she has 11 children, 5 to remain at home. Patient's symptoms are partially relieved by rest, leg elevation, over the counter oral analgesics and compression stockings which she has worn for many years. The patient denies any signs and symptoms to suggest arterial ischemia. The patient describes a family history significant for varicose veins in her mother. Heart disease and hypertension in her father. Hypertension in her mother. . The patient's 11 children 3 from her marriage and 3 adopted. The patient has never smoked. No illicit drug use. Occasional social alcohol use. Current medical history significant for fibromyalgia, Jen-Danlos syndrome, type 2 diabetes, gastroesophageal reflux disease, hyperlipidemia, hypertension and hypothyroidism. Past surgical history significant for gastric sleeve, gallbladder surgery and bilateral great saphenous vein stripping by Dr. Moody. No history of deep venous thrombus or pulmonary embolus. See separate history and physical for medication list. Nursing notes were reviewed. After history and physical exam I discussed at length the pathophysiology of venous hypertension and possible treatments, therapies and strategies available. We discussed at length the importance of elevating the lower extremities above the level of the heart, increased physical activity and compression stocking use. We discussed conservative treatment with compression stockings. We discussed surgical interventions including ligation and stripping and phlebectomy. Discussed intravenous laser ablation, micro foam chemical ablation and injection sclerotherapy at length. Risks benefits and alternatives were discussed. The patient's questions were answered. Ultrasound venous reflux study performed the same day was discussed at length with the patient. The report demonstrates moderate right mild left great saphenous vein venous insufficiency. Moderate right and mild left small saphenous vein venous insufficiency. Bilateral anterior accessory saphenous vein venous insufficiency. Bilateral incompetent varicose veins PHYSICAL EXAM: The right leg demonstrates mild scattered varicose reticular and spider veins. Mild subcutaneous edema. No hemosiderin staining or ulceration. The left leg demonstrates mild scattered varicose, reticular and spider veins. Mild subcutaneous edema. No hemosiderin staining or ulceration. Both thighs, legs and feet were symmetrically warm to the touch. Good posterior tibial and dorsalis pedis pulses were present bilaterally. VEIN/VC Facility EST Comprehensive IMPRESSION: 1. Bilateral great saphenous, anterior accessory saphenous and small saphenous vein venous insufficiency 2. Bilateral lower extremity varicose veins 3. Mild bilateral lower extremity subcutaneous edema 4. No definite flow significant arterial disease 5. CEAP: C3, Ep, Asp, Pr PLAN: 1. Endovenous laser ablation right small saphenous vein followed by left anterior accessory saphenous vein followed by right anterior accessory saphenous vein with possible treatment of the right great saphenous vein 2. Bilateral micro foam chemical ablation of incompetent varicose veins 3. Long-term use of bilateral thigh or knee high 4. 20-30 mm compression stockings 5. Continued physical activity for symptomatic relief Nurse notes, history and physical were reviewed and confirmed, see attached forms. The nurse was present throughout the physical exam and consultation Dictated by: Lionel Morse MD on 10/04/2023 at 10:55 Approved by: Lionel Morse MD on 10/04/2023 at 11:00
--- NOTE | 2023-10-04 08:49 | VEIN_ITS ---
Patient Name: JONNATHAN SEPULVEDA MR#: [id number] : 1975 Exam Date: 10/04/2023 Ordering Doctor: KENDRA SUAREZ CNP RADIOLOGY REPORT PROCEDURE: VC EXT VENOUS REFLUX BROWN LMTD COMPARISON: None. INDICATIONS: Phlebitis of superficial vein of bilateral lower extremity I TECHNIQUE: Duplex imaging of the lower extremity to assess the deep and superficial venous system for the presence of deep or superficial venous incompetence and to document the location and severity of disease. The study includes evaluation of the great saphenous vein (GSV), anterior accessory saphenous vein (AASV) and small saphenous vein (SSV). Patient scanned in reverse Trendelenburg and standing. FINDINGS: RIGHT LOWER EXTREMITY: Saphenofemoral Junction Reflux: Yes 10.5mm 2.9 sec GSV: Diam (mm) Reflux/ Time (sec) Proximal Thigh 6.6 Yes 1.2 Mid Thigh 4.4 Yes 0.7 Distal Thigh 4.9 No Prox Calf 3.4 Yes 0.7 Mid Calf 4.3 Yes 0.9 Saphenopopliteal Junction Reflux: 6.3mm Yes 2.3 SSV: Proximal Calf 6.1 Yes 1.8 Mid Calf 4.4 Yes 0.5 AASV: Proximal Thigh 7.7 Yes 1.2 Mid Thigh 4.2 Yes 1.9 Distal Thigh Thrombi: No acute or chronic thrombus Compressibility: Normal Flow: Normal Preforator: Dist/med calf 3.3mm with 0.7s reflux. Tech Note: Incompetent GSV, SSV, and AASV. Patent varicose vein dist/med calf 3.2mm with 0.6s reflux. Patent varicose prox/med calf 3.8mm with 1.1s reflux. Patent varicose vein dist/med thigh 3.7mm with 1.1s reflux. Patent varicose vein mid/ant thigh 3.6mm with 0.8s reflux. LEFT LOWER EXTREMITY: Saphenofemoral Junction Reflux: No 5.5 mm sec GSV: Diam (mm) Reflux/Time (sec) Proximal Thigh 2.5 Yes 0.6 Mid Thigh N/A Distal Thigh N/A Prox Calf 3.5 Yes 1.0 Mid Calf 2.8 No Saphenopopliteal Junction Relux: 6.6 mm Yes 0.6 SSV: Proximal Calf 5.5 Yes 0.7 Mid Calf 3.9 Yes 0.8 AASV: Proximal Thigh 6.6 Yes 1.6 Mid Thigh 5.1 Yes 0.8 Distal Thigh Thrombi: No acute or chronic thrombus visualized Compressibility: Normal Flow: Normal Steam Shovel Oiler: Dist/med calf 3.6mm with 0s reflux. Tech Note: Incompetent AASV and SSV. GSV has been previously stripped and is not visualized from proximal thigh to proximal calf. Patent varicose vein prox/med calf 4.1mm with 1.2s reflux. Patent varicose vein dist/med thigh 4.0mm with 0.9s reflux. Patent varicose vein mid/med thigh 3.6mm with 0.9s reflux. CONCLUSION: 1. Moderate right and mild left great saphenous vein venous insufficiency. Right saphenofemoral junction reflux 2. Moderate right and mild left small saphenous vein venous insufficiency with saphenous popliteal junction reflux 3. Moderate bilateral anterior accessory saphenous vein venous insufficiency with the location 4. Bilateral incompetent perforating veins 5. Bilateral incompetent varicose veins Dictated by: Lionel Morse MD on 10/04/2023 at 09:53 Approved by: Lionel Morse MD on 10/04/2023 at 09:55
--- OUTSIDE RECORDS SUMMARY | 2023-10-04 08:52 | XMS_ITS | CCD ---
Author Name Unknown Address [address] [place] [address] Organization [facility] Care Team Providers Care Molder Bench Name Role Phone DevorajhonKaylie hernandes Unavailable Mona Morin Unavailable NO FAMILY, PHYSICIAN Primary Care Provider Unava CHRISTIANO Iqbal Attending Provider MONA MORIN Primary Care Unavailable [facility], DR ELIAS Attending Unavailable [facility], DR ELIAS [...] Facility (5 sources) Cephalexin Drug Allergy rash [facility] Other (12 sources) Cephalexin Drug Allergy rash [facility] Other (1 source) Sulfamethoxazole / Trimethoprim Drug Allergy 3 [facility] Repository Medications Current Medications Medication Drug Class(es) Dates Sig (Normalized) Sig (Original) [id number] 200 actuat albuterol 0.09 mg/actuat metered dose [...] oral solution (2 sources) alpha-Adrenergic Agonist, Uncompetitive K-pwmflj-K-aspartate Receptor Antagonist, Sigma-1 Agonist Start: take 10 [...] Results Test Name Value Interpretation Reference Range Facility [facility] 05-03-2023 S. pyogenes Org specific cx Ql (Throat) Negative [facility] Other Quick Strep [facility] Other INSULINon 01-26-2023 Insulin 21.3 uIU/mL Normal 2.6-24.9 [facility] Comment on above: Performed By: #### I NSULIN #### [facility] [address] [place] [address] Dr. Yvan Manzano CORTISOLon 01-23-2023 Cortisol 11.2 ug/dL Normal 6.2-19.4 [facility] Comment on above: Result Comment: [place] Note: The reference interval and flagging for this test is for an AM collection. If this is a PM collection please use: Cortisol PM: 2.3-11.9 [facility] also offers: [id number]: Cortisol- AM [id number]: Cortisol- PM Performed By: #### C BC #### [facility] [address] [place] [address] Dr. Yvan Manzano CBC AUTO DIFFon 01-22-2023 BASO # 0.1 103/ul Normal 0.0-0.1 [facility] Comment on above: Performed By: #### C BC #### [facility] [address] [place] [address] Dr. Yvan Manzano Basophils/100 WBC (Bld) 0.9 % Normal 0.2-2.0 [facility] Comment on above: Performed By: #### C BC #### [facility] [address] [place] [address] Dr. Yvan Manzano EO # 0.3 103/ul Normal 0.0-0.7 [facility] Comment on above: Performed By: #### C BC #### [facility] [address] [place] [address] Dr. Yvan Manzano Eosinophils/100 WBC (Bld) 5.7 % Normal 0.9-7.0 [facility] Comment on above: Performed By: #### C BC #### [facility] [address] [place] [address] Dr. Yvan Manzano Erythrocyte distribution width (RBC) [Ratio] 14.6 % Normal 11.0-15.0 [facility] Comment on above: Performed By: #### C BC #### [facility] [address] [place] [address] Dr. Yvan Manzano Hematocrit (Bld) [Volume fraction] 36.8 % Normal 36.0-48.0 [facility] Comment on above: Performed By: #### C BC #### [facility] [address] [place] [address] Dr. Yvan Manzano Hemoglobin (Bld) [Mass/Vol] 11.4 g/dL Critically low 12.0-16.0 [facility] Comment on above: Performed By: #### C BC #### [facility] [address] [place] [address] Dr. Yvan Manzano IG # 0.02 10e3/ul Normal 0.00-0.03 [facility] Comment on above: Performed By: #### C BC #### [facility] [address] [place] [address] Dr. Yvan Manzano IG % 0.3 % Normal 0.0-0.5 [facility] Comment on above: Performed By: #### C BC #### [facility] [address] [place] [address] Dr. Yvan Manzano LYMPH # 1.5 103/ul Normal 1.2-3.8 [facility] Comment on above: Performed By: #### C BC #### [facility] [address] [place] [address] Dr. Yvan Manzano Lymphocytes/100 WBC (Bld) 25.3 % Normal 20.5-60.0 [facility] Comment on above: Performed By: #### C BC #### [facility] [address] [place] [address] Dr. Yvan Manzano MANUAL DIFF REQ NO Normal [facility] Comment on above: Performed By: #### C BC #### [facility] [address] [place] [address] Dr. Yvan Manzano MCH (RBC) [Entitic mass] 25.2 pg Critically low 26.7-34.0 [facility] Comment on above: Performed By: #### C BC #### [facility] [address] [place] [address] Dr. Yvna Manzano MCHC (RBC) [Mass/Vol] 31.0 g/dL Normal 29.9-35.2 [facility] Comment on above: Performed By: #### C BC #### [facility] [address] [place] [address] Dr. Yvan Manzano MCV (RBC) [Entitic vol] 81.4 fL Normal 81.0-99.0 [facility] Comment on above: Performed By: #### C BC #### [facility] [address] [address] [address] Yvan Manzano MONO # 0.4 103/ul Normal 0.3-0.8 [facility] Comment on above: Performed By: #### C BC #### [facility] [address] [place] [address] Dr. Yvan Manzano Monocytes/100 WBC (Bld) 7.7 % Normal 1.7-12.0 [facility] Comment on above: Performed By: #### C BC #### [facility] [address] [place] [address] Dr. Yvan Manzano NEUT # 3.5 103/ul Normal 1.4-6.5 [facility] Comment on above: Performed By: #### C BC #### [facility] [address] [place] [address] Dr. Yvan Manzano Neutrophils/100 WBC (Bld) 60.1 % Normal 43.0-75.0 [facility] Comment on above: Performed By: #### C BC #### [facility] [address] [place] [address] Dr. Yvan Manzano Platelet mean volume (Bld) [Entitic vol] 8.8 fL Critically low 9.5-13.5 [facility] Comment on above: Performed By: #### C BC #### [facility] [address] [place] [address] Dr. Yvan Manzano PLT 347 103/ul Normal 150-450 [facility] Comment on above: Performed By: #### C BC #### [facility] [address] [place] [address] Dr. Yvan Manzano RBC 4.52 106/ul Normal 4.20-5.40 [facility] Comment on above: Performed By: #### C BC #### [facility] [address] [place] [address] Dr. Yvan Manzano WBC 5.7 103/ul Normal 4.0-11.0 [facility] Comment on above: Performed By: #### C BC #### [facility] [address] [address] [address] Yvan Manzano FREE T4on 01-22-2023 Free T4 [Mass/Vol] 0.84 ng/dL Normal 0.76-1.46 [facility] Comment on above: Performed By: #### F T4 #### [facility] [address] [place] [address] Dr. Yvan Manzano LIPID PROFILEon 01-22-2023 CHOL-HDL RATIO NORM SEE BELOW Normal [facility] Comment on above: Result Comment: 3.3 - 4.4 LOW RISK 4.4 - 7.1 AVERAGE RISK 7.1 - 11.0 MODERATE RISK >11.0 HIGH RISK Performed By: #### T SH, LIPID #### [facility] [address] [place] [address] Dr. Yvan Manzano Cholesterol [Mass/Vol] 264 mg/dL Critically high <=200 [facility] Comment on above: Performed By: #### T SH, LIPID #### [facility] [address] [place] [address] Dr. Yvan Manzano Cholesterol in HDL [Mass/Vol] 52 mg/dL Normal 40-60 [facility] Comment on above: Performed By: #### T SH, LIPID #### [facility] [address] [place] [address] Dr. Yvan Manzano Cholesterol in LDL [Mass/Vol] 173.6 mg/dL Normal [facility] Comment on above: Performed By: #### T SH, LIPID #### [facility] [address] [place] [address] Dr. Yvan Manzano Cholesterol.total/Ch olesterol in HDL [Mass ratio] 5.1 {ratio} Normal [facility] Comment on above: Performed By: #### T SH, LIPID #### [facility] [address] [place] [address] Dr. Yvan Manzano HDL NORMAL > or = 60 mg/dl - LOW CARDIOVASCULAR RISK <40 mg/dl - HIGH CARDIOVASCULAR RISK Normal [facility] Comment on above: Performed By: #### T SH, LIPID #### [facility] [address] [place] [address] Dr. Yvan Manzaon LDL CALC NORMAL SEE BELOW Normal [facility] Comment on above: Result Comment: <100 mg/dl OPTIMAL 100 - 129 mg/dl NEAR OR ABOVE OPTIMAL 130 - 159 mg/dl BORDERLINE HIGH 160 - 189 mg/dl HIGH >190 mg/dl VERY HIGH Performed By: #### T SH, LIPID #### [facility] [address] [address] [address] Yvan Manzano Triglyceride [Mass/Vol] 192 mg/dL Critically high <=150 [facility] Comment on above: Performed By: #### T SH, LIPID #### [facility] [address] [address] [address] Yvan Manzano VLDL CALC 38.4 mg/dL Normal [facility] Comment on above: Performed By: #### T SH, LIPID #### [facility] [address] [place] [address] Dr. Yvan Manzano TSHon 01-22-2023 TSH 5.749 uIU/mL Critically high 0.358-3.740 [facility] Comment on above: Performed By: #### T SH, LIPID #### [facility] [address] [address] [address] Yvan Manzano GLYCOHEMOGLOBIN A1Con 2022 ADA RECOMMENDATION SEE BELOW Normal [facility] Comment on above: Result Comment: ADA RECOMMENDED LIMIT 4.0 - 6.0 ADA THERAPEUTIC TARGET < 7.0 ACTION SUGGESTED > 7.0 Performed By: #### A 1C #### [facility] [address] [address] [address] Yvan Manzano Glucose [Mass/Vol] 137 mg/dL Normal [facility] Comment on above: Performed By: #### A 1C #### [facility] [address] [address] [address] Yvan Manzano HbA1c (Bld) [Mass fraction] 6.4 % Critically high 4.5-6.2 [facility] Comment on above: Performed By: #### A 1C #### [facility] [address] [address] [address] Yvan Manzano PROF 14(COMP METB)on 023 Albumin [Mass/Vol] 3.4 g/dL Normal 3.4-5.0 [facility] Comment on above: Performed By: #### C MP #### [facility] [address] [place] [address] Dr. Yvan Manzano Albumin/Globulin [Mass ratio] 0.9 {ratio} Normal [facility] Comment on above: Performed By: #### C MP #### [facility] [address] [place] [address] Dr. Yvan Manzano ALP [Catalytic activity/Vol] 74 U/L Normal 46-116 [facility] Comment on above: Performed By: #### C MP #### [facility] [address] [place] [address] Dr. Yvan Manzano ALT [Catalytic activity/Vol] 25 U/L Normal 14-59 [facility] Comment on above: Performed By: #### C MP #### [facility] [address] [place] [address] Dr. Yvan Manzano Anion gap [Moles/Vol] 9.4 mmol/L Normal [facility] Comment on above: Performed By: #### C MP #### [facility] [address] [place] [address] Dr. Yvan Manzano AST [Catalytic activity/Vol] 17 U/L Normal 15-37 [facility] Comment on above: Performed By: #### C MP #### [facility] [address] [place] [address] Dr. Yvan Manzano Bilirubin [Mass/Vol] 0.1 mg/dL Critically low 0.2-1.0 [facility] Comment on above: Performed By: #### C MP #### [facility] [address] [place] [address] Dr. Yvan Manzano Calcium [Mass/Vol] 9.2 mg/dL Normal 8.5-10.[address] [facility] Comment on above: Performed By: #### C MP #### [facility] [address] [place] [address] Dr. Yvan Manzano Chloride [Moles/Vol] 101 mmol/L Normal 98-107 [facility] Comment on above: Performed By: #### C MP #### [facility] [address] [address] [address] Yvan Manzano CO2 [Moles/Vol] 30.4 mmol/L Normal 21.0-32.0 [facility] Comment on above: Performed By: #### C MP #### [facility] [address] [address] [address] Yvan Manzano Creatinine [Mass/Vol] 0.71 mg/dL Normal 0.55-1.02 [facility] Comment on above: Performed By: #### C MP #### [facility] [address] [place] [address] Dr. Yvan Manzano EGFR-AF TOGOLESE >60 Normal >=60 [facility] Comment on above: Performed By: #### C MP #### [facility] [address] [place] [address] Dr. Yvan Manzano EGFR-NON AF TOGOLESE >60 Normal >=60 [facility] Comment on above: Performed By: #### C MP #### [facility] [address] [address] [address] Yvan Manzano Globulin (S) [Mass/Vol] 4.0 g/dL Normal [facility] Comment on above: Performed By: #### C MP #### [facility] [address] [place] [address] Dr. Yvan Manzano Glucose [Mass/Vol] 138 mg/dL Critically high 74-106 [facility] Comment on above: Performed By: #### C MP #### [facility] [address] [address] [address] Yvan Manzano Potassium [Moles/Vol] 3.8 mmol/L Normal 3.5-5.1 [facility] Comment on above: Performed By: #### C MP #### [facility] [address] [address] [address] Yvan Manzano Protein [Mass/Vol] 7.4 g/dL Normal 6.4-8.2 [facility] Comment on above: Performed By: #### C MP #### [facility] [address] [address] [address] Yvan Manzano Sodium [Moles/Vol] 137 mmol/L Normal 136-145 [facility] Comment on above: Performed By: #### C MP #### [facility] [address] [address] [address] Yvan Manzano Urea nitrogen [Mass/Vol] 13.0 mg/dL Normal 7.0-18.0 [facility] Comment on above: Performed By: #### C MP #### [facility] [address] [address] [address] Yvan Manzano Urea nitrogen/Creatinine [Mass ratio] 18.3 mg/mg Normal [facility] Comment on above: Performed By: #### C MP #### [facility] [address] [place] [address] Dr. Yvan Manzano LIPID PROFILEon 03-31-2022 CHOL-HDL RATIO NORM SEE BELOW Normal [facility] Comment on above: Result Comment: 3.3 - 4.4 LOW RISK 4.4 - 7.1 AVERAGE RISK 7.1 - 11.0 MODERATE RISK >11.0 HIGH RISK Performed By: #### C MP, LIPID #### [facility] [address] [place] [address] Dr. Yvan Manzano Cholesterol [Mass/Vol] 229 mg/dL Critically high <=200 [facility] Comment on above: Performed By: #### C MP, LIPID #### [facility] [address] [address] [address] Yvan Manzano Cholesterol in HDL [Mass/Vol] 51 mg/dL Normal 40-60 [facility] Comment on above: Performed By: #### C MP, LIPID #### [facility] [address] [place] [address] Dr. Yvan Manzano Cholesterol in LDL [Mass/Vol] 150.4 mg/dL Normal [facility] Comment on above: Performed By: #### C MP, LIPID #### [facility] [address] [place] [address] Dr. Yvan Manzano Cholesterol.total/Ch olesterol in HDL [Mass ratio] 4.5 {ratio} Normal [facility] Comment on above: Performed By: #### C MP, LIPID #### [facility] [address] [address] [address] Yvan Manzano HDL NORMAL > or = 60 mg/dl - LOW CARDIOVASCULAR RISK <40 mg/dl - HIGH CARDIOVASCULAR RISK Normal [facility] Comment on above: Performed By: #### C MP, LIPID #### [facility] [address] [address] [address] Yvan Manzano LDL CALC NORMAL SEE BELOW Normal [facility] Comment on above: Result Comment: <100 mg/dl OPTIMAL 100 - 129 mg/dl NEAR OR ABOVE OPTIMAL 130 - 159 mg/dl BORDERLINE HIGH 160 - 189 mg/dl HIGH >190 mg/dl VERY HIGH Performed By: #### C MP, LIPID #### [facility] [address] [address] [address] Yvan Manzano Triglyceride [Mass/Vol] 138 mg/dL Normal <=150 [facility] Comment on above: Performed By: #### C MP, LIPID #### [facility] [address] [address] [address] Yvan Manzano VLDL CALC 27.6 mg/dL Normal [facility] Comment on above: Performed By: #### C MP, LIPID #### [facility] [address] [address] [address] Yvan Manzano MICROALB CREAT RATIO RANDOMo n 03-31-2022 mALB 1.4 mg/L Normal <=30.0 [facility] Comment on above: Performed By: #### M CRR #### [facility] [address] [address] [address] Yvan Manzano MALB CR RATIO 6.0 mg/g Normal 0.0-29.9 [facility] Comment on above: Performed By: #### M CRR #### [facility] [address] [address] [address] Yvan Manzano MALB CR RATIO RANGE SEE BELOW Normal [facility] Comment on above: Result Comment: NO M ICROALBUMINURIA 0-29 MG/G CLINICAL MICROALBUMINURIA 30-300 MG/G MACROALBUMINURIA >300 MG/G Performed By: #### M CRR #### [facility] [address] [place] [address] Dr. Yvan Manzano URINE CREAT 232.88 mg/dL Normal 20.00-300.[address] [facility] Comment on above: Performed By: #### M CRR #### [facility] [address] [place] [address] Dr. Yvan Manzano PROF 14(COMP METB)on 022 Albumin [Mass/Vol] 3.6 g/dL Normal 3.4-5.0 [facility] Comment on above: Performed By: #### C MP, LIPID #### [facility] [address] [place] [address] Dr. Yvan Manzano Albumin/Globulin [Mass ratio] 0.9 {ratio} Normal [facility] Comment on above: Performed By: #### C MP, LIPID #### [facility] [address] [place] [address] Dr. Yvan Manzano ALP [Catalytic activity/Vol] 63 U/L Normal 46-116 [facility] Comment on above: Performed By: #### C MP, LIPID #### [facility] [address] [place] [address] Dr. Yvan Manzano ALT [Catalytic activity/Vol] 33 U/L Normal 14-59 [facility] Comment on above: Performed By: #### C MP, LIPID #### [facility] [address] [place] [address] Dr. Yvan Manzano Anion gap [Moles/Vol] 11.7 mmol/L Normal [facility] Comment on above: Performed By: #### C MP, LIPID #### [facility] [address] [place] [address] Dr. Yvan Manzano AST [Catalytic activity/Vol] 23 U/L Normal 15-37 [facility] Comment on above: Performed By: #### C MP, LIPID #### [facility] [address] [place] [address] Dr. Yvan Manzano Bilirubin [Mass/Vol] 0.2 mg/dL Normal 0.2-1.0 [facility] Comment on above: Performed By: #### C MP, LIPID #### [facility] [address] [place] [address] Dr. Yvan Manzano Calcium [Mass/Vol] 9.5 mg/dL Normal 8.5-10.1 [facility] Comment on above: Performed By: #### C MP, LIPID #### [facility] [address] [place] [address] Dr. Yvan Manzano Chloride [Moles/Vol] 102 mmol/L Normal 98-107 [facility] Comment on above: Performed By: #### C MP, LIPID #### [facility] [address] [place] [address] Dr. Yvan Manzano CO2 [Moles/Vol] 28.0 mmol/L Normal 21.0-32.0 [facility] Comment on above: Performed By: #### C MP, LIPID #### [facility] [address] [place] [address] Dr. Yvan Manzano Creatinine [Mass/Vol] 0.71 mg/dL Normal 0.55-1.02 [facility] Comment on above: Performed By: #### C MP, LIPID #### [facility] [address] [place] [address] Dr. Yvan Manzano EGFR-AF TOGOLESE >60 Normal >=60 [facility] Comment on above: Performed By: #### C MP, LIPID #### [facility] [address] [place] [address] Dr. Yvan Manzano EGFR-NON AF TOGOLESE >60 Normal >=60 [facility] Comment on above: Performed By: #### C MP, LIPID #### [facility] [address] [place] [address] Dr. Yvan Manzano Globulin (S) [Mass/Vol] 4.0 g/dL Normal [facility] Comment on above: Performed By: #### C MP, LIPID #### [facility] [address] [place] [address] Dr. Yvan Manzano Glucose [Mass/Vol] 87 mg/dL Normal 74-[address] [facility] Comment on above: Performed By: #### C MP, LIPID #### [facility] [address] [address] [address] Yvan Manzano Potassium [Moles/Vol] 3.7 mmol/L Normal 3.5-5.1 [facility] Comment on above: Performed By: #### C MP, LIPID #### [facility] [address] [address] [address] Yvan Manzano Protein [Mass/Vol] 7.6 g/dL Normal 6.4-8.[address] [facility] Comment on above: Performed By: #### C MP, LIPID #### [facility] [address] [address] [address] Yvan Manzano Sodium [Moles/Vol] 138 mmol/L Normal 136-145 [facility] Comment on above: Performed By: #### C MP, LIPID #### [facility] [address] [address] [address] Yvan Manzano Urea nitrogen [Mass/Vol] 14.0 mg/dL Normal 7.0-18.0 [facility] Comment on above: Performed By: #### C MP, LIPID #### [facility] [address] [place] [address] Dr. Yvan Manzano Urea nitrogen/Creatinine [Mass ratio] 19.7 mg/mg Normal [facility] Comment on above: Performed By: #### C MP, LIPID #### [facility] [address] [place] [address] Dr. Yvan Manzano XR hip RT min 2V(w/wo pelvis )*on 03-26-2022 XR hip RT min 2V(w/wo pelvis)* [facility] [place] [address] XRay Report Signed Patient: Tatiana Sepulveda MR#: [id number] : 1975 Acct:[id number] Age/Sex: 46 / F ADM Date: 03/26/22 Loc: XDCLY Room: Type: [facility] Attending Dr: Mona KENNEDY-C Copies to: MONA MORIN Ordering Provider: MONA MORIN Date of Service: 03/26/22 XR/XR hip RT min 2V(w/wo pelvis)*: Right hip pain 2 views RIGHT hip single view pelvisplain film COMPARISON:None HISTORY:Lateral RIGHT hip pain for one year No fracture, dislocation or focal soft tissue abnormality seen.No significant degeneration. Articular surfaces preserved. XR/XR hip RT min 2V(w/wo pelvis)* IMPRESSION:Unremarka ble exam Impression dictated by: Michael Harper M.D.03/26/2022 3:38 PM Dictation Location: [place] [address] Transcribed By: [facility] 03/26/22 153 Dictated By: Michael Harper DO 03/26/22 1534 Signed By: 03/26/22 1538 Normal [facility] XR sacrum coccyx min 2Von XR sacrum coccyx min 2V [facility] [place] [address] XRay Report Signed Patient: Tatiana Sepulveda MR#: [id number] : 1975 Acct:[id number] Age/Sex: 45 / F ADM Date: 09/29/21 Loc: XDUC Room: Type: [facility] Attending Dr: Mona ALVARADO Ordering Provider: MONA [...] Laron Villegas M.D.09/29/2021 4:16 PM Dictation Location: [place] [address] Transcribed By: [facility] 09/29/21 161 Dictated By: Laron Villegas II, MD 09/29/21 161 Signed By: 09/29/21 1616 [facility] COVID Quick Testingon 2020 Result Negative [employer] Other Vital Signs Date Time Vital Sign Value Performing Clinician Facility 05-03-2023 09:05-0400 Body height 157.48 cm Priyanka Jones Other [facility] Other 05-03-2023 09:05-0400 Body mass index (BMI) [Ratio] 35.02 kg/m2 Priyanka Jones Other [facility] [employer] Other 05-03-2023 09:05-0400 Body temperature 97.5 [degF] Priyanka Jones Other [facility] [employer] Other 05-03-2023 09:05-0400 Body weight 86.86 kg Priyanka Jones Other [facility] Other 05-03-2023 09:05-0400 Diastolic blood pressure 76 mm[Hg] Priyanka Jones Other [facility] Other 05-03-2023 09:05-0400 Respiratory rate 18 /min Priyanka Jones Other [facility] Other 05-03-2023 09:05-0400 SaO2% (BldA) [Mass fraction] 100 % Priyanka Jones Other [facility] Other 05-03-2023 09:05-0400 Systolic blood pressure 117 mm[Hg] Priyanka Jones Other [facility] [employer] Other 11-17-2022 11:30-0500 Body height 157.48 cm Mona Morin Other [facility] [employer] Other 11-17-2022 11:30-0500 Body mass index (BMI) [Ratio] 35.3 kg/m2 Mona Morin Other [facility] [employer] Other 11-17-2022 11:30-0500 Body temperature 98.7 [degF] Mona Morin Other [facility] Other 11-17-2022 11:30-0500 Body weight 87.54 kg Mona Morin Other [facility] [employer] Other 11-17-2022 11:30-0500 Respiratory rate 18 /min Mona Morin Other [facility] [employer] Other 11-17-2022 11:30-0500 SaO2% (BldA) [Mass fraction] 98 % Mona Morin Other [facility] Other 09-28-2022 16:30-0500 Body height 157.48 cm Mona Morin Other [facility] [employer] Other 09-28-2022 16:30-0500 Body mass index (BMI) [Ratio] 35.3 kg/m2 Mona Yeungault Other [facility] Other 09-28-2022 16:30-0500 Body temperature 98 [degF] Mona Yeungault Other [facility] [employer] Other 09-28-2022 16:30-0500 Body weight 87.54 kg Mona Morin Other [facility] [employer] Other 09-28-2022 16:30-0500 Diastolic blood pressure 79 mm[Hg] Mona Yeungault Other [facility] [employer] Other 09-28-2022 16:30-0500 Respiratory rate 18 /min Mona Morin Other [facility] [employer] Other 09-28-2022 16:30-0500 SaO2% (BldA) [Mass fraction] 98 % Mona Morin Other [facility] [employer] Other 09-28-2022 16:30-0500 Systolic blood pressure 130 mm[Hg] Mona Yeungault Other [facility] Other 07-14-2022 15:00-0400 Body height 157.48 cm Mona Morin Other [facility] [employer] Other 07-14-2022 15:00-0400 Body mass index (BMI) [Ratio] 35.66 kg/m2 Mona Morin Other [facility] [employer] Other 07-14-2022 15:00-0400 Body weight 88.45 kg Mona Morin Other [facility] [employer] Other 07-14-2022 15:00-0400 Diastolic blood pressure 89 mm[Hg] Mona Shane Other [facility] [employer] Other 07-14-2022 15:00-0400 Respiratory rate 18 /min Mona Yeungault Other [facility] Other 07-14-2022 15:00-0400 SaO2% (BldA) [Mass fraction] 98 % Mona Morin Other [facility] Other 07-14-2022 15:00-0400 Systolic blood pressure 145 mm[Hg] Mona Morin Other [facility] Other 06-30-2022 12:00-0400 Body height 157.48 cm Mona Morin Other [facility] Other 06-30-2022 12:00-0400 Body mass index (BMI) [Ratio] 35.48 kg/m2 Mona Morin Other [facility] Other 06-30-2022 12:00-0400 Body temperature 97.7 [degF] Mona Yeungault Other [facility] Other 06-30-2022 12:00-0400 Body weight 88 kg Mona Morin Other [facility] Other 06-30-2022 12:00-0400 Diastolic blood pressure 87 mm[Hg] Mona Yeungault Other [employer] Other 06-30-2022 12:00-0400 Respiratory rate 18 /min Mona Yeungault Other [employer] Other 06-30-2022 12:00-0400 SaO2% (BldA) [Mass fraction] 97 % Mona Yeungault Other [employer] Other 06-30-2022 12:00-0400 Systolic blood pressure 136 mm[Hg] Mona Morin Other [employer] Other 02-03-2022 11:00-0400 Body height 157.48 cm Mona Morin Other [facility] Other 02-03-2022 11:00-0400 Body mass index (BMI) [Ratio] 35.84 kg/m2 Mona Morin Other [employer] Other 02-03-2022 11:00-0400 Body temperature 98.2 [degF] Mona Morin Other [employer] Other 02-03-2022 11:00-0400 Body weight 88.91 kg Mona Morin Other [facility] Other 02-03-2022 11:00-0400 Diastolic blood pressure 96 mm[Hg] Mona Morin Other [facility] Other 02-03-2022 11:00-0400 Respiratory rate 18 /min Mona Morin Other [employer] Other 02-03-2022 11:00-0400 SaO2% (BldA) [Mass fraction] 99 % Mona Morin Other [facility] Other 02-03-2022 11:00-0400 Systolic blood pressure 157 mm[Hg] Mona Morin Other [facility] Other 08-31-2021 10:00-0500 Body height 157.48 cm Kaylie Echeverria Other [employer] Other 08-31-2021 10:00-0500 Body mass index (BMI) [Ratio] 35.66 kg/m2 Kaylie Ginty Other [employer] Other 08-31-2021 10:00-0500 Body temperature 98.7 [degF] Kaylie Ginty Other [employer] Other 08-31-2021 10:00-0500 Body weight 88.45 kg Kaylie Ginty Other [employer] Other 08-31-2021 10:00-0500 Respiratory rate 18 /min Kaylie Devoranty Other [employer] Other 08-31-2021 10:00-0500 SaO2% (BldA) [Mass fraction] 95 % Kaylie Devoranty Other [employer] Other Encounters Encounter Date Encounter Type Care Provider Facility Start: 09-13-2023 End: 09-13-2023 ambulatory ELSI ATKINSONHOLZ Not Available Start: 05-03-2023 End: 05-03-2023 ambulatory Priyanka Jones Other [employer] Other Start: 05-03-2023 Office outpatient visit 15 minutes Priyanka Jones [facility] Start: 01-22-2023 End: 01-23-2023 ambulatory MONA MORIN Facility: Start: 11-23-2022 End: 11-23-2022 ambulatory Mona Morin Other [employer] Other Start: 11-23-2022 Telephone encounter Mona MICHAUD [employer] Start: 11-20-2022 End: 11-20-2022 ambulatory Mona Morin Other [employer] Other Start: 11-20-2022 Encounter by compute r link Mona Morin [facility] Start: 11-17-2022 End: 11-18-2022 ambulatory MONA MORIN [employer] Other Start: 11-17-2022 Office outpatient visit 15 minutes Mona Morin [facility] Start: 10-06-2022 End: 10-06-2022 ambulatory Mona Morin Other [employer] Other Start: 10-06-2022 Telephone encounter Mona Palmerl t [facility] Start: 09-29-2022 End: 09-29-2022 ambulatory PHYSICIAN [facility] Work Phone: Start: 09-29-2022 End: 09-29-2022 Departed Referred PHYSICIAN [facility] [place] Work Phone: Start: 09-28-2022 End: 09-28-2022 ambulatory Mona Morin Other [employer] Other Start: 09-28-2022 Office outpatient visit 15 minutes Mona Morin [facility] Start: 09-14-2022 End: 09-14-2022 ambulatory Mona Morin Other [employer] Other Start: 09-14-2022 Telephone encounter Mona Palmerl t [facility] Start: 07-14-2022 End: 07-14-2022 ambulatory Mona Morin Other [employer] Other Start: 07-14-2022 Office outpatient visit 15 minutes Mona Morin [facility] Start: 06-30-2022 End: 06-30-2022 ambulatory Mona Morin Other [employer] Other Start: 06-30-2022 Office outpatient visit 15 minutes Monalawanda Morin [facility] Start: 04-02-2022 End: 04-02-2022 ambulatory Monalawanda Morin Other [employer] Other Start: 04-02-2022 Telephone encounter Monalawanda Palmerl t [facility] Start: 03-31-2022 Telephone encounter Monalawanda Palmerl t [facility] Start: 03-31-2022 End: 04-01-2022 ambulatory MONALAWANDA MORIN [employer] Other Start: 02-03-2022 End: 02-03-2022 ambulatory Mona Morin Other [employer] Other Start: 02-03-2022 Office outpatient visit 15 minutes Mona Morin [facility] Start: 12-10-2021 End: 12-10-2021 ambulatory Mona Morin Other [employer] Other Start: 12-10-2021 Telephone encounter Monalawanda Palmerl t [facility] Start: 11-10-2021 End: 11-10-2021 ambulatory Mona Morin Other [employer] Other Start: 11-10-2021 Telephone encounter Monalawanda Palmerl t [facility] Start: 09-03-2021 End: 09-03-2021 ambulatory Kaylie Ginty Other [employer] Other Start: 09-03-2021 Telephone encounter Kaylie Ginty [facility] Start: 08-31-2021 End: 08-31-2021 ambulatory Kaylie Ginty Other [employer] Other Start: 08-31-2021 Office outpatient visit 15 minutes Kaylie Ginty [facility] Plan of Treatment Date Care Activity Detail Author Start: 09-29-2022 Aerobic Culture Aerobic Culture [facility] Start: 09-29-2022 Anaerobic Culture Anaerobic Culture [facility] Start: 09-29-2022 Microscopic observat ion [Identifier] in Unspecified specimen by Gram stain Gram Stain [facility] Bacteria identified in Unspecified specimen by Aerobe culture [facility] Bacteria identified in Unspecified specimen by Anaerobe culture [facility] Payers Date Payer Category Payer Medicaid [id number] 2. [id number] 1975 Unknown [id number] [id number] 1975 Unknown [id number] [id number] [id number] 1975 Unknown [id number] 2.16.84 [id number] 1975 Unknown [id number] 1958 Unknown [id number] 2.1 [id number] 1958 Unknown [id number] [facility] [id number] Self-pay Self Pay [id number] Unknown [id number] 2.1 [id number] Social History Date Type Detail Facility Unknown if ever smoked [employer] Other Sex Assigned At Sex Assigned At Bir th [employer] Other Start: 1975 Sex Assigned At Female F [facility] Medical Equipment Procedure Code Equipment Code Equipment [...] fever. Patient/Parent verbalized understanding of treatment plan. [employer] Other 02-21-2023 Evaluation note* Encounter Date Diagnosis [...] weeks for the cough to go away [employer] Other 01-02-2023 Evaluation note* Encounter Date Diagnosis [...] obtained for C&S. Will call with results. [employer] Other 12-19-2022 Evaluation note* Encounter Date Diagnosis Assessment Notes Treatment Notes Treatment Clinical Notes Aug, Gastroesophageal ref lux disease, unspecified whether esophagitis present (ICD-10 - K21.9) Aug, PCOS (polycystic ovarian syndrome) (ICD-10 - E28.2) [employer] Other 10-18-2022 Evaluation note* Encounter Date Diagnosis Assessment Notes Treatment Notes Treatment Clinical Notes Jun, Fibromyalgia (ICD-10 - M79.7) Continue current treatment regimen. Printed off script to use as needed [employer] Other 10-04-2022 Evaluation note* Encounter Date Diagnosis Assessment Notes Treatment Notes Treatment Clinical Notes Jun, Primary hypertension (ICD-10 - I10) Jun, SJ (generalized anxiety disorder) (ICD-10 - F41.1) [employer] Other 07-07-2022 Evaluation note* Encounter Date Diagnosis Assessment Notes Treatment Notes Treatment Clinical Notes Mar, Right hip pain (ICD-10 - M25.551) [employer] Other 05-10-2022 Evaluation note* Encounter Date Diagnosis Assessment Notes Treatment Notes Treatment Clinical Notes January, Gastroesophageal ref lux disease, unspecified whether esophagitis present (ICD-10 - K21.9) Continue to take medication as directed. January, PCOS (polycystic ovarian syndrome) (ICD-10 - E28.2) Take medication as directed with food [employer] Other 03-16-2022 Evaluation note* Encounter Date Diagnosis Assessment Notes Treatment Notes Treatment Clinical Notes Nov, Sacral back pain (ICD-10 - M53.3) [employer] Other 02-14-2022 Evaluation note* Encounter Date Diagnosis Assessment Notes Treatment Notes Treatment Clinical Notes Oct, Gastroesophageal ref lux disease, unspecified whether esophagitis present (ICD-10 - K21.9) [employer] Other 02-14-2022 Evaluation note* Encounter Date Diagnosis Assessment Notes Treatment Notes Treatment Clinical Notes Oct, Sacral back pain (ICD-10 - M53.3) [employer] Other 2021 Evaluation note* Encounter Date Diagnosis [...] Patient care instructions given in writting by [facility] At Home document. [employer] Other Evaluation noteNo InformationNort [employer] Other Evaluation noteNo assessment information available [facility] Work Phone: History general Narrative - Reported* Type Description Date Medical History asthma Medical History pcos Medical History Fibromyalgia Medical History Hypothyroidism - euthyroid Medical History chronic fatigue Surgical History gall bladder Surgical History vein removed in bilaterally Surgical History gastric sleeve Hospitalization History see above Hospitalization History CHILD X'S 5 [employer] Other Reason for visit NarrativeDermatology Referral Update [employer] Other Summary Purpose Family History No Family [...] section and content) DATE CREATED AUTHOR 03/27/2022 [facility] DATE CREATED AUTHOR AUTHOR'S ORGANIZ ATION 01/29/2023 [facility] DATE CREATED AUTHOR AUTHOR'S ORGANIZ ATION 09/13/2023 [facility] EPIC Care Teams (unrecognized sec tion [...] BE BASED ON THE PRIMARY CLINICAL RECORDS. [employer] provides no warranty or guarantee of the accuracy or completeness of information in this document.
== END 2023-10-04 08:48 | disposition home or self-care (01) ==
PROVIDERS: PCP Nurse Practitioner; Visit Provider Nurse Practitioner
DX: I83.813 Varicose veins of bilateral lower extremities with pain (principal); R60.0 Localized edema
CPT/HCPCS: 93970; G0463

== ENCOUNTER 2023-11-18 08:47 | Outpatient (OUT) | payer BC, MEDICAID, SELFPAY ==
--- NOTE | 2023-11-18 08:49 | VEIN_ITS ---
The [address] [address] Patient Name: JONNATHAN SEPULVEDA MRN: [id number] date: 1975 Sex: F Assigned Patient Location: Current Patient Location: Accession/Order Number: [id number] Exam Date: 11/18/2023 09:00 Report Date: 11/18/2023 10:15 At the request of: TRE VALDOVINOS Procedure: VC Endovenous Ablation 1VeinRT EXAMINATION: VC Endovenous Ablation 1VeinRT HISTORY: Pain due to varicose veins of bilateral legs I83.813 The risks and benefits of the procedure had been previously discussed, and were rediscussed at length. Informed written consent was obtained. Garrett Arellano RN and Taty Miranda RDMS, RVT assisted. Time out procedure was performed. The right lower extremity was prepared and draped in the usual sterile fashion to allow knee flexion in the sterile field. Duplex ultrasound probe was draped in a sterile cover, sterile transmission gel was used. Venous mapping was performed with the areas of dilation and large tributaries marked. The total length was 12 cm from the entry midproximal thigh to 3 cm below the Saphenofemoral junction. The diameter of the right great saphenous vein ranged from 7.7 mm. A 30 gauge needle and 1% buffered lidocaine was used to anesthetize the entry site. A 4 mm incision was made with a scalpel and the saphenous vein was entered percutaneously under direct ultrasound guidance with a micropuncture set, a single stick was successful in gaining access. A micro-guide wire was inserted and the needle removed. A micro-set including a dilator was inserted over the microwire and the needle and dilator were removed. A guide wire was inserted through the micro-set and guided through the saphenous vein to the saphenofemoral junction. The dilator was removed and an introducer sheath was inserted over the wire until the end of the sheath entered the saphenofemoral junction. The dilator and wire were removed and the 600 micron fiber was introduced and placed and positioned so that it extended beyond the sheath and was 3 cm distal to the saphenofemoral or saphenopopliteal junction. Final position of the fiber was determined by ultrasound guidance and duplex imaging. Tumescent anesthetic was delivered by ultrasound guidance. 100 cc of fluid was delivered along the entire course of the saphenous vein. The solution consisted of 1000 cc of normal saline with 40 mL of 1% lidocaine and 20 mL of sodium bicarbonate. A final positioning check was made. The energy source was turned on by means of the foot pedal and the fiber and sheath were withdrawn. The total number of Joules delivered was 627. The laser was active for 78 seconds under continuous pulse, average laser use of 8 J. Laser start time 10:00 AM, 11/18/2023. Laser stop time 10:03 AM, 07/18/2024. A duplex ultrasound revealed compressibility and flow at the saphenofemoral junction immediately after the procedure. Hemostasis at the access site was achieved. The skin incision of the saphenous vein was closed with a 4 x 4. A compression stocking was applied. Postop instructions were given. A follow up appointment was recommended and scheduled. The patient tolerated the procedure well. Electronically authenticated by: REG ROYAL Date: 11/18/2023 10:15
--- OUTSIDE RECORDS SUMMARY | 2023-11-18 08:54 | XMS_ITS | CCD ---
Author Name Unknown Address [address] [facility] [address] [facility] [address] [place] [address] Organization [facility] Care Team Providers Care Appeals Specialist Name Role Phone Kaylie Echeverria Unavailable Mona Morin Unavailable NO FAMILY, PHYSICIAN Primary Care Provider Unava CHRISTIANO Iqbal Attending Provider MONA MORIN Primary Care Unavailable MISC, DR ELIAS Attending Unavailable MISC, DR ELIAS Admitting Unavailable ERICK, KENDRA CALZADA Consulting Unavailable MONA MORIN Consulting Unavailable MONA MORIN Primary Care Unavailable MONA MORIN Admitting Unavailable MONA MORIN Attending Unavailable MONA MORIN Primary Care Unavailable MONA MORIN Admitting Unavailable MONA MORIN Attending Unavailable MONA MORIN Consulting Unavailable Priyanka Jones Unavailable ELSI SUAREZ Attending Unavailable ELSI SUAREZ Attending Unavailable TD BERUMEN Attending Unavailable MONA MORIN Referring Unavailable MONA MORIN Primary Care Unavailable Allergies Allergy Classification Reported Allergen(s) Allergy Type Date of Onset Reaction(s) Facility (5 sources) Cephalexin Drug Allergy rash Epiphyte Other (12 sources) Cephalexin Drug Allergy rash Epiphyte Other (1 source) Sulfamethoxazole / Trimethoprim Drug Allergy 3 [facility] Medications Current Medications Medication Drug Class(es) Dates Sig (Normalized) Sig (Original) [id number] 200 actuat albuterol 0.09 mg/actuat metered dose [...] oral solution (2 sources) alpha-Adrenergic Agonist, Uncompetitive H-ohpwlx-S-aspartate Receptor Antagonist, Sigma-1 Agonist Start: take 10 [...] dose nasal spray (17 sources) Corticosteroid Start: take 2 spray(s) nasal route once daily [...] Translations: [Atopic dermatitis, unspecified] Chronic Anxiety disorders (12 sources) Generalized anxiety disorder; Translations: [Generalized anxiety disorder] Onset: 06-04-2017 Chronic Asthma (17 sources) Exacerbation of asthma; [...] fatigue; Translations: [OTHER FATIGUE] Onset: 01-28-2023 Episodic Mood disorders (1 source) Major depressive disorder, recurrent, moderate; Translations: [Major depressive disorder, recurrent, moderate] Onset: 06-04-2017 Chronic Nutritional deficiencies (17 sources) Vitamin D deficiency; [...] pyogenes Org specific cx Ql (Throat) Negative Epiphyte Other Quick Strep Epiphyte Other INSULINon 01-26-2023 Insulin 21.3 uIU/mL Normal 2.6-24.9 [facility] Comment on above: Performed By: #### I NSULIN #### [facility] [address] [place] [address] Dr. Yvan Manzano CORTISOLon 01-23-2023 Cortisol 11.2 ug/dL Normal 6.2-19.4 [facility] Comment on above: Result Comment: [place] Note: The reference interval and flagging for this test is for an AM collection. If this is a PM collection please use: Cortisol PM: 2.3-11.9 [facility] also offers: [id number]: Cortisol- AM [id number]: Cortisol- PM Performed By: #### C BC #### [facility] [address] [place] [address] Dr. Yvan Manzano CBC AUTO DIFFon 01-22-2023 BASO # 0.1 103/ul Normal 0.0-0.1 [facility] Comment on above: Performed By: #### C BC #### [facility] [address] [place] [address] Dr. Yvan Mnazano Basophils/100 WBC (Bld) 0.9 % Normal 0.2-2.0 [facility] Comment on above: Performed By: #### C BC #### [facility] [address] [place] [address] Dr. Yvan Manzano EO # 0.3 103/ul Normal 0.0-0.7 [facility] Comment on above: Performed By: #### C BC #### [facility] [address] [place] [address] Dr. Yvan Manzano Eosinophils/100 WBC (Bld) 5.7 % Normal 0.9-7.0 [facility] Comment on above: Performed By: #### C BC #### [facility] [address] [place] [address] Dr. Yvan Manzano Erythrocyte distribution width (RBC) [Ratio] 14.6 % Normal 11.0-15.0 [facility] Comment on above: Performed By: #### C BC #### [facility] [address] [place] [address] Dr. Yvan Manzano Hematocrit (Bld) [Volume fraction] 36.8 % Normal 36.0-48.0 [facility] Comment on above: Performed By: #### C BC #### [facility] [address] [place] [address] Dr. Yvan Manzano Hemoglobin (Bld) [Mass/Vol] 11.4 g/dL Critically low 12.0-16.0 [facility] Comment on above: Performed By: #### C BC #### [facility] [address] [place] [address] Dr. Yvan Manzano IG # 0.02 10e3/ul Normal 0.00-0.03 [facility] Comment on above: Performed By: #### C BC #### [facility] [address] [place] [address] Dr. Yvan Manzano IG % 0.3 % Normal 0.0-0.5 [facility] Comment on above: Performed By: #### C BC #### [facility] [address] [place] [address] Dr. Yvan Manzano LYMPH # 1.5 103/ul Normal 1.2-3.8 [facility] Comment on above: Performed By: #### C BC #### [facility] [address] [place] [address] Dr. Yvan Manzano Lymphocytes/100 WBC (Bld) 25.3 % Normal 20.5-60.0 [facility] Comment on above: Performed By: #### C BC #### [facility] [address] [place] [address] Dr. Yvan Manzano MANUAL DIFF REQ NO Normal [facility] Comment on above: Performed By: #### C BC #### [facility] [address] [place] [address] Dr. Yvan Manzano MCH (RBC) [Entitic mass] 25.2 pg Critically low 26.7-34.0 [facility] Comment on above: Performed By: #### C BC #### [facility] [address] [place] [address] Dr. Yvan Manzano MCHC (RBC) [Mass/Vol] 31.0 g/dL Normal 29.9-35.2 [facility] Comment on above: Performed By: #### C BC #### [facility] [address] [address] [address] Yvan Manzano MCV (RBC) [Entitic vol] 81.4 fL Normal 81.0-99.0 [facility] Comment on above: Performed By: #### C BC #### [facility] [address] [address] [address] Yvan Manzano MONO # 0.4 103/ul Normal 0.3-0.8 [facility] Comment on above: Performed By: #### C BC #### [facility] [address] [place] [address] Dr. Yvan Manzano Monocytes/100 WBC (Bld) 7.7 % Normal 1.7-12.0 [facility] Comment on above: Performed By: #### C BC #### [facility] [address] [place] [address] Dr. Yvan Manzano NEUT # 3.5 103/ul Normal 1.4-6.5 [facility] Comment on above: Performed By: #### C BC #### [facility] [address] [place] [address] Dr. Yvan Manzano Neutrophils/100 WBC (Bld) 60.1 % Normal 43.0-75.0 [facility] Comment on above: Performed By: #### C BC #### [facility] [address] [place] [address] Dr. Yvan Manzano Platelet mean volume (Bld) [Entitic vol] 8.8 fL Critically low 9.5-13.5 [facility] Comment on above: Performed By: #### C BC #### [facility] [address] [place] [address] Dr. Yvan Manzano PLT 347 103/ul Normal 150-450 [facility] Comment on above: Performed By: #### C BC #### [facility] [address] [place] [address] Dr. Yvan Manzano RBC 4.52 106/ul Normal 4.20-5.40 [facility] Comment on above: Performed By: #### C BC #### [facility] [address] [address] [address] Yvan Manzano WBC 5.7 103/ul Normal 4.0-11.0 [facility] Comment on above: Performed By: #### C BC #### [facility] [address] [address] [address] Yvan Manzano FREE T4on 01-22-2023 Free T4 [Mass/Vol] 0.84 ng/dL Normal 0.76-1.46 [facility] Comment on above: Performed By: #### F T4 #### [facility] [address] [place] [address] Dr. Yvan Manzano LIPID PROFILEon 01-22-2023 CHOL-HDL RATIO NORM SEE BELOW Normal [facility] Comment on above: Result Comment: 3.3 - 4.4 LOW RISK 4.4 - 7.1 AVERAGE RISK 7.1 - 11.0 MODERATE RISK >11.0 HIGH RISK Performed By: #### T SH, LIPID #### [facility] [address] [place] [address] Dr. Yvan Manzano Cholesterol [Mass/Vol] 264 mg/dL Critically high <=200 [facility] Comment on above: Performed By: #### T SH, LIPID #### [facility] [address] [place] [address] Dr. Yvan Manzano Cholesterol in HDL [Mass/Vol] 52 mg/dL Normal 40-60 [facility] Comment on above: Performed By: #### T SH, LIPID #### [facility] [address] [place] [address] Dr. Yvan Manzano Cholesterol in LDL [Mass/Vol] 173.6 mg/dL Normal [facility] Comment on above: Performed By: #### T SH, LIPID #### [facility] [address] [place] [address] Dr. Yvan Manzano Cholesterol.total/Ch olesterol in HDL [Mass ratio] 5.1 {ratio} Normal [facility] Comment on above: Performed By: #### T SH, LIPID #### [facility] [address] [address] [address] Yvan Manzano HDL NORMAL > or = 60 mg/dl - LOW CARDIOVASCULAR RISK <40 mg/dl - HIGH CARDIOVASCULAR RISK Normal [facility] Comment on above: Performed By: #### T SH, LIPID #### [facility] [address] [address] [address] Yvan Manzano LDL CALC NORMAL SEE BELOW Normal [facility] Comment on above: Result Comment: <100 mg/dl OPTIMAL 100 - 129 mg/dl NEAR OR ABOVE OPTIMAL 130 - 159 mg/dl BORDERLINE HIGH 160 - 189 mg/dl HIGH >190 mg/dl VERY HIGH Performed By: #### T SH, LIPID #### [facility] [address] [address] [address] Yvan Manzano Triglyceride [Mass/Vol] 192 mg/dL Critically high <=150 [facility] Comment on above: Performed By: #### T SH, LIPID #### [facility] [address] [place] [address] Dr. Yvan Manzano VLDL CALC 38.4 mg/dL Normal [facility] Comment on above: Performed By: #### T SH, LIPID #### [facility] [address] [address] [address] Yvan Manzano TSHon 01-22-2023 TSH 5.749 uIU/mL Critically high 0.358-3.740 [facility] Comment on above: Performed By: #### T SH, LIPID #### [facility] [address] [place] [address] Dr. Yvan Manzano GLYCOHEMOGLOBIN A1Con 2022 ADA RECOMMENDATION SEE BELOW Normal [facility] Comment on above: Result Comment: ADA RECOMMENDED LIMIT 4.0 - 6.0 ADA THERAPEUTIC TARGET < 7.0 ACTION SUGGESTED > 7.0 Performed By: #### A 1C #### [facility] [address] [place] [address] Dr. Yvan Manzano Glucose [Mass/Vol] 137 mg/dL Normal [facility] Comment on above: Performed By: #### A 1C #### [facility] [address] [place] [address] Dr. Yvan Manzano HbA1c (Bld) [Mass fraction] 6.4 % Critically high 4.5-6.2 [facility] Comment on above: Performed By: #### A 1C #### [facility] [address] [place] [address] Dr. Yvan Manzano PROF 14(COMP METB)on 023 Albumin [Mass/Vol] 3.4 g/dL Normal 3.4-5.0 [facility] Comment on above: Performed By: #### C MP #### [facility] [address] [place] [address] Dr. Yvan Manzano Albumin/Globulin [Mass ratio] 0.9 {ratio} Normal [facility] Comment on above: Performed By: #### C MP #### [facility] [address] [place] [address] Dr. Yvan Manzano ALP [Catalytic activity/Vol] 74 U/L Normal 46-116 [facility] Comment on above: Performed By: #### C MP #### [facility] [address] [place] [address] Dr. Yvan Manzano ALT [Catalytic activity/Vol] 25 U/L Normal 14-59 [facility] Comment on above: Performed By: #### C MP #### [facility] [address] [place] [address] Dr. Yvan Manzano Anion gap [Moles/Vol] 9.4 mmol/L Normal [facility] Comment on above: Performed By: #### C MP #### [facility] [address] [place] [address] Dr. Yvan Manzano AST [Catalytic activity/Vol] 17 U/L Normal 15-37 [facility] Comment on above: Performed By: #### C MP #### [facility] [address] [place] [address] Dr. Yvan Manzano Bilirubin [Mass/Vol] 0.1 mg/dL Critically low 0.2-1.0 [facility] Comment on above: Performed By: #### C MP #### [facility] [address] [place] [address] Dr. Yvan Manzano Calcium [Mass/Vol] 9.2 mg/dL Normal 8.5-10.1 [facility] Comment on above: Performed By: #### C MP #### [facility] [address] [address] [address] Yvan Manzano Chloride [Moles/Vol] 101 mmol/L Normal 98-107 [facility] Comment on above: Performed By: #### C MP #### [facility] [address] [address] [address] Yvan Manzano CO2 [Moles/Vol] 30.4 mmol/L Normal 21.0-32.0 [facility] Comment on above: Performed By: #### C MP #### [facility] [address] [place] [address] Dr. Yvan Manzano Creatinine [Mass/Vol] 0.71 mg/dL Normal 0.55-1.02 [facility] Comment on above: Performed By: #### C MP #### [facility] [address] [place] [address] Dr. Yvan Manzano EGFR-AF SUDANESE >60 Normal >=60 [facility] Comment on above: Performed By: #### C MP #### [facility] [address] [place] [address] Dr. Yvan Manzano EGFR-NON AF SUDANESE >60 Normal >=60 [facility] Comment on above: Performed By: #### C MP #### [facility] [address] [place] [address] Dr. Yvan Manzano Globulin (S) [Mass/Vol] 4.0 g/dL Normal [facility] Comment on above: Performed By: #### C MP #### [facility] [address] [address] [address] Yvan Manzano Glucose [Mass/Vol] 138 mg/dL Critically high 74-106 [facility] Comment on above: Performed By: #### C MP #### [facility] [address] [place] [address] Dr. Yvan Manzano Potassium [Moles/Vol] 3.8 mmol/L Normal 3.5-5.1 [facility] Comment on above: Performed By: #### C MP #### [facility] [address] [address] [address] Yvan Manzano Protein [Mass/Vol] 7.4 g/dL Normal 6.4-8.2 [facility] Comment on above: Performed By: #### C MP #### [facility] [address] [address] [address] Yvan Manzano Sodium [Moles/Vol] 137 mmol/L Normal 136-145 [facility] Comment on above: Performed By: #### C MP #### [facility] [address] [address] [address] Yvan Manzano Urea nitrogen [Mass/Vol] 13.0 mg/dL Normal 7.0-18.0 [facility] Comment on above: Performed By: #### C MP #### [facility] [address] [address] [address] vYan Manzano Urea nitrogen/Creatinine [Mass ratio] 18.3 mg/mg Normal [facility] Comment on above: Performed By: #### C MP #### [facility] [address] [address] [address] Yvan Manzano LIPID PROFILEon 03-31-2022 CHOL-HDL RATIO NORM SEE BELOW Normal [facility] Comment on above: Result Comment: 3.3 - 4.4 LOW RISK 4.4 - 7.1 AVERAGE RISK 7.1 - 11.0 MODERATE RISK >11.0 HIGH RISK Performed By: #### C MP, LIPID #### [facility] [address] [address] [address] Yvan Manzano Cholesterol [Mass/Vol] 229 mg/dL Critically high <=200 [facility] Comment on above: Performed By: #### C MP, LIPID #### [facility] [address] [address] [address] Yvan Manzano Cholesterol in HDL [Mass/Vol] 51 mg/dL Normal 40-60 [facility] Comment on above: Performed By: #### C MP, LIPID #### [facility] [address] [address] [address] Yvan Manzano Cholesterol in LDL [Mass/Vol] 150.4 mg/dL Normal [facility] Comment on above: Performed By: #### C MP, LIPID #### [facility] [address] [address] [address] Yvan Manzano Cholesterol.total/Ch olesterol in HDL [Mass ratio] 4.5 {ratio} Normal [facility] Comment on above: Performed By: #### C MP, LIPID #### [facility] [address] [address] [address] Yvan Manzano HDL NORMAL > or = 60 mg/dl - LOW CARDIOVASCULAR RISK <40 mg/dl - HIGH CARDIOVASCULAR RISK Normal [facility] Comment on above: Performed By: #### C MP, LIPID #### [facility] [address] [place] [address] Dr. Yvan Manzano LDL CALC NORMAL SEE BELOW Normal [facility] Comment on above: Result Comment: <100 mg/dl OPTIMAL 100 - 129 mg/dl NEAR OR ABOVE OPTIMAL 130 - 159 mg/dl BORDERLINE HIGH 160 - 189 mg/dl HIGH >190 mg/dl VERY HIGH Performed By: #### C MP, LIPID #### [facility] [address] [place] [address] Dr. Yvan Manzano Triglyceride [Mass/Vol] 138 mg/dL Normal <=150 [facility] Comment on above: Performed By: #### C MP, LIPID #### [facility] [address] [place] [address] Dr. Yvan Manzano VLDL CALC 27.6 mg/dL Normal [facility] Comment on above: Performed By: #### C MP, LIPID #### [facility] [address] [address] [address] Yvan Manzano MICROALB CREAT RATIO RANDOMo n 03-31-2022 mALB 1.4 mg/L Normal <=30.0 [facility] Comment on above: Performed By: #### M CRR #### [facility] [address] [place] [address] Dr. Yvan Mnazano MALB CR RATIO 6.0 mg/g Normal 0.0-29.9 [facility] Comment on above: Performed By: #### M CRR #### [facility] [address] [address] [address] Yvan Manzano MALGaby CR RATIO RANGE SEE BELOW Normal [facility] Comment on above: Result Comment: NO M ICROALBUMINURIA 0-29 MG/G CLINICAL MICROALBUMINURIA 30-300 MG/G MACROALBUMINURIA >300 MG/G Performed By: #### M CRR #### [facility] [address] [address] [address] Yvan Manzano URINE CREAT 232.88 mg/dL Normal 20.00-300.00 [facility] Comment on above: Performed By: #### M CRR #### [facility] [address] [place] [address] Dr. Yvan Manzano PROF 14(COMP METB)on 022 Albumin [Mass/Vol] 3.6 g/dL Normal 3.4-5.0 [facility] Comment on above: Performed By: #### C MP, LIPID #### [facility] [address] [place] [address] Dr. Yvan Manzano Albumin/Globulin [Mass ratio] 0.9 {ratio} Normal [facility] Comment on above: Performed By: #### C MP, LIPID #### [facility] [address] [place] [address] Dr. Yvan Manzano ALP [Catalytic activity/Vol] 63 U/L Normal 46-116 [facility] Comment on above: Performed By: #### C MP, LIPID #### [facility] [address] [place] [address] Dr. Yvan Manzano ALT [Catalytic activity/Vol] 33 U/L Normal 14-59 [facility] Comment on above: Performed By: #### C MP, LIPID #### [facility] [address] [place] [address] Dr. Yvan Manzano Anion gap [Moles/Vol] 11.7 mmol/L Normal [facility] Comment on above: Performed By: #### C MP, LIPID #### [facility] [address] [place] [address] Dr. Yvan Manzano AST [Catalytic activity/Vol] 23 U/L Normal 15-37 [facility] Comment on above: Performed By: #### C MP, LIPID #### [facility] [address] [place] [address] Dr. Yvan Manzano Bilirubin [Mass/Vol] 0.2 mg/dL Normal 0.2-1.0 [facility] Comment on above: Performed By: #### C MP, LIPID #### [facility] [address] [place] [address] Dr. Yvan Manzano Calcium [Mass/Vol] 9.5 mg/dL Normal 8.5-10.1 [facility] Comment on above: Performed By: #### C MP, LIPID #### [facility] [address] [place] [address] Dr. Yvan Manzano Chloride [Moles/Vol] 102 mmol/L Normal 98-107 [facility] Comment on above: Performed By: #### C MP, LIPID #### [facility] [address] [place] [address] Dr. Yvan Manzano CO2 [Moles/Vol] 28.0 mmol/L Normal 21.0-32.0 [facility] Comment on above: Performed By: #### C MP, LIPID #### [facility] [address] [place] [address] Dr. Yvan Manzano Creatinine [Mass/Vol] 0.71 mg/dL Normal 0.55-1.02 [facility] Comment on above: Performed By: #### C MP, LIPID #### [facility] [address] [place] [address] Dr. Yvan Manzano EGFR-AF SUDANESE >60 Normal >=60 [facility] Comment on above: Performed By: #### C MP, LIPID #### [facility] [address] [place] [address] Dr. Yvan Manzano EGFR-NON AF SUDANESE >60 Normal >=60 [facility] Comment on above: Performed By: #### C MP, LIPID #### [facility] [address] [place] [address] Dr. Yvan Manzano Globulin (S) [Mass/Vol] 4.0 g/dL Normal [facility] Comment on above: Performed By: #### C MP, LIPID #### [facility] [address] [address] [address] Yvan Manzano Glucose [Mass/Vol] 87 mg/dL Normal 74-106 [facility] Comment on above: Performed By: #### C MP, LIPID #### [facility] [address] [address] [address] Yvan Manzano Potassium [Moles/Vol] 3.7 mmol/L Normal 3.5-5.1 [facility] Comment on above: Performed By: #### C MP, LIPID #### [facility] [address] [place] [address] Dr. Yvan Manzano Protein [Mass/Vol] 7.6 g/dL Normal 6.4-8.2 [facility] Comment on above: Performed By: #### C MP, LIPID #### [facility] [address] [address] [address] Yvan Manzano Sodium [Moles/Vol] 138 mmol/L Normal 136-145 [facility] Comment on above: Performed By: #### C MP, LIPID #### [facility] [address] [address] [address] Yvan Manzano Urea nitrogen [Mass/Vol] 14.0 mg/dL Normal 7.0-18.0 [facility] Comment on above: Performed By: #### C MP, LIPID #### [facility] [address] [place] [address] Dr. Yvan Manzano Urea nitrogen/Creatinine [Mass ratio] 19.7 mg/mg Normal [facility] Comment on above: Performed By: #### C MP, LIPID #### [facility] [address] [place] [address] Dr. Yvan Manzano XR hip RT min 2V(w/wo pelvis )*on 03-26-2022 XR hip RT min 2V(w/wo pelvis)* [facility] [place] [address] [place] [address] XRay Report Signed Patient: Tatiana Sepulveda MR#: [id number] : 1975 Acct:[id number] Age/Sex: 46 / F ADM Date: 03/26/22 Loc: XDCLY Room: Type: [facility] Attending Dr: Mona ALVARADO Copies to: MONA [...] Michael Harper M.D.03/26/2022 3:38 PM Dictation Location: [place] [address] Transcribed By: [facility] 03/26/22 1538 Dictated By: Michael Harper DO 03/26/22 1534 Signed By: 03/26/22 1538 Normal [facility] XR sacrum coccyx min 2Von XR sacrum coccyx min 2V [place] [address] XRay Report Signed Patient: Tatiana Sepulveda MR#: [id number] : 1975 Acct:[id number] Age/Sex: 45 / F ADM Date: 09/29/21 Loc: XDUCLY Room: Type: [facility] HAVERTOWNI Attending Dr: Mona ALVARADO Ordering Provider: MONA [...] Laron Villegas M.D.09/29/2021 4:16 PM Dictation Location: [place] [address] Transcribed By: DALTON 09/29/21 161 Dictated By: Laron Villegas II, MD 09/29/211612 Signed By: 09/29/211615 [facility] COVID Quick Testingon 2020 Result Negative [facility] Other Vital Signs Date Time Vital Sign Value Performing Clinician Facility 05-03-2023 09:05-0400 Body height 157.48 cm Priyanka Jones Other [facility] Other 05-03-2023 09:05-0400 Body mass index (BMI) [Ratio] 35.02 kg/m2 Priyanka Jones Other [facility] Other 05-03-2023 09:05-0400 Body temperature 97.5 [degF] Priyanka Jones Other [facility] Other 05-03-2023 09:05-0400 Body weight 86.86 kg Priyanka Jones Other [facility] Other 05-03-2023 09:05-0400 Diastolic blood pressure 76 mm[Hg] Priyanka Jones Other [facility] Other 05-03-2023 09:05-0400 Respiratory rate 18 /min Priyanka Jones Other [facility] Other 05-03-2023 09:05-0400 SaO2% (BldA) [Mass fraction] 100 % Priyanka Jones Other [facility] Other 05-03-2023 09:05-0400 Systolic blood pressure 117 mm[Hg] Priyanka Jones Other [facility] Other 11-17-2022 11:30-0500 Body height 157.48 cm Mona Yeungault Other [facility] Other 11-17-2022 11:30-0500 Body mass index (BMI) [Ratio] 35.3 kg/m2 Mona Shane Other [facility] Other 11-17-2022 11:30-0500 Body temperature 98.7 [degF] Mona Shane Other [facility] Other 11-17-2022 11:30-0500 Body weight 87.54 kg Mona Yeungault Other [facility] Other 11-17-2022 11:30-0500 Respiratory rate 18 /min Mona Yeungault Other [facility] Other 11-17-2022 11:30-0500 SaO2% (BldA) [Mass fraction] 98 % Mona Yeungault Other [facility] Other 09-28-2022 16:30-0500 Body height 157.48 cm Mona Shane Other [facility] Other 09-28-2022 16:30-0500 Body mass index (BMI) [Ratio] 35.3 kg/m2 Mona Shane Other [facility] Other 09-28-2022 16:30-0500 Body temperature 98 [degF] Mona Morin Other [facility] Other 09-28-2022 16:30-0500 Body weight 87.54 kg Mona Morin Other [facility] Other 09-28-2022 16:30-0500 Diastolic blood pressure 79 mm[Hg] Mona Morin Other [facility] Other 09-28-2022 16:30-0500 Respiratory rate 18 /min Mona Morin Other [facility] Other 09-28-2022 16:30-0500 SaO2% (BldA) [Mass fraction] 98 % Mona Morin Other [facility] Other 09-28-2022 16:30-0500 Systolic blood pressure 130 mm[Hg] Mona Morin Other [facility] Other 07-14-2022 15:00-0400 Body height 157.48 cm Mona Morin Other [facility] Other 07-14-2022 15:00-0400 Body mass index (BMI) [Ratio] 35.66 kg/m2 Mona Yeungault Other [facility] Other 07-14-2022 15:00-0400 Body weight 88.45 kg Mona Yeungault Other [facility] Other 07-14-2022 15:00-0400 Diastolic blood pressure 89 mm[Hg] Mona Shane Other [facility] Other 07-14-2022 15:00-0400 Respiratory rate 18 /min Mona Morin Other [facility] Other 07-14-2022 15:00-0400 SaO2% (BldA) [Mass fraction] 98 % Mona Morin Other [facility] Other 07-14-2022 15:00-0400 Systolic blood pressure 145 mm[Hg] Mona Morin Other [facility] Other 06-30-2022 12:00-0400 Body height 157.48 cm Mona oMrin Other [facility] Other 06-30-2022 12:00-0400 Body mass index (BMI) [Ratio] 35.48 kg/m2 Mona Morin Other [facility] Other 06-30-2022 12:00-0400 Body temperature 97.7 [degF] Mona Morin Other [facility] Other 06-30-2022 12:00-0400 Body weight 88 kg Mona Morin Other [facility] Other 06-30-2022 12:00-0400 Diastolic blood pressure 87 mm[Hg] Mona Morin Other [facility] Other 06-30-2022 12:00-0400 Respiratory rate 18 /min Mona Morin Other [facility] Other 06-30-2022 12:00-0400 SaO2% (BldA) [Mass fraction] 97 % Mona Morin Other [facility] Other 06-30-2022 12:00-0400 Systolic blood pressure 136 mm[Hg] Mona Morin Other [facility] Other 02-03-2022 11:00-0400 Body height 157.48 cm Mona Morin Other [facility] Other 02-03-2022 11:00-0400 Body mass index (BMI) [Ratio] 35.84 kg/m2 Mona Morin Other [facility] Other 02-03-2022 11:00-0400 Body temperature 98.2 [degF] Mona Yeungault Other [facility] Other 02-03-2022 11:00-0400 Body weight 88.91 kg Mona Morin Other [facility] Other 02-03-2022 11:00-0400 Diastolic blood pressure 96 mm[Hg] Mona Yeungault Other [facility] Other 02-03-2022 11:00-0400 Respiratory rate 18 /min Mona Morin Other [facility] Other 02-03-2022 11:00-0400 SaO2% (BldA) [Mass fraction] 99 % Mona Yeungault Other [facility] Other 02-03-2022 11:00-0400 Systolic blood pressure 157 mm[Hg] Mona Yeungault Other [facility] Other 08-31-2021 10:00-0500 Body height 157.48 cm Kaylie Ginty Other [facility] Other 08-31-2021 10:00-0500 Body mass index (BMI) [Ratio] 35.66 kg/m2 Kaylie Ginty Other [facility] Other 08-31-2021 10:00-0500 Body temperature 98.7 [degF] Kaylie Ginty Other [facility] Other 08-31-2021 10:00-0500 Body weight 88.45 kg Kaylie Ginty Other [facility] Other 08-31-2021 10:00-0500 Respiratory rate 18 /min Kaylie Ginty Other [facility] Other 08-31-2021 10:00-0500 SaO2% (BldA) [Mass fraction] 95 % Kaylie Ginty Other [facility] Other Encounters Encounter Date Encounter Type Care Provider Facility Start: 11-04-2023 End: 11-04-2023 ambulatory TD [facility] Start: 10-26-2023 End: 10-26-2023 ambulatory ELSI AICHHOLZ Not Available Start: 09-13-2023 End: 09-13-2023 ambulatory ELSI AICHHOLZ Not Available Start: 05-03-2023 End: 05-03-2023 ambulatory Priyanka Jones Other [facility] Other Start: 05-03-2023 Office outpatient visit 15 minutes Priyanka Jones [facility] Start: 01-22-2023 End: 01-23-2023 ambulatory MONA MORIN Facility:[facility] Start: 11-23-2022 End: 11-23-2022 ambulatory Mona Morin Other [facility] Other Start: 11-23-2022 Telephone encounter Mona Palmerl t [facility] Start: 11-20-2022 End: 11-20-2022 ambulatory Mona Morin Other [facility] Other Start: 11-20-2022 Encounter by [place] Mona Morin [facility] Start: 11-17-2022 End: 11-18-2022 ambulatory MONA MORIN [employer] Other Start: 11-17-2022 Office outpatient visit 15 minutes Monalawanda Morin [facility] Start: 10-06-2022 End: 10-06-2022 ambulatory Mona Morin Other [facility] Other Start: 10-06-2022 Telephone encounter Mona Palmerl t [facility] Start: 09-29-2022 End: 09-29-2022 ambulatory PHYSICIAN NO [facility] Work Phone: Start: 09-29-2022 End: 09-29-2022 Departed Referred PHYSICIAN NO [facility] Work Phone: Start: 09-28-2022 End: 09-28-2022 ambulatory Mona Morin Other [facility] Other Start: 09-28-2022 Office outpatient visit 15 minutes Mona Morin [facility] Start: 09-14-2022 End: 09-14-2022 ambulatory Mona Morin Other [facility] Other Start: 09-14-2022 Telephone encounter Mona Breaul t [facility] Start: 07-14-2022 End: 07-14-2022 ambulatory Monalawanda Morin Other [facility] Other Start: 07-14-2022 Office outpatient visit 15 minutes Monalawanda Morin [facility] Start: 06-30-2022 End: 06-30-2022 ambulatory Monalawanda Morin Other [facility] Other Start: 06-30-2022 Office outpatient visit 15 minutes Monalawanda Morin [facility] Start: 04-02-2022 End: 04-02-2022 ambulatory Monanara Morin Other [facility] Other Start: 04-02-2022 Telephone encounter Mona Breaul t [facility] Start: 03-31-2022 Telephone encounter Mona Breaul t [facility] Start: 03-31-2022 End: 04-01-2022 ambulatory MONALAWANDA MORIN [employer] Other Start: 02-03-2022 End: 02-03-2022 ambulatory Monalawanda Morin Other [facility] Other Start: 02-03-2022 Office outpatient visit 15 minutes Monalawanda Morin [facility] Start: 12-10-2021 End: 12-10-2021 ambulatory Monanara Morin Other [facility] Other Start: 12-10-2021 Telephone encounter Mona Breaul t [facility] Start: 11-10-2021 End: 11-10-2021 ambulatory Monanara Morin Other [facility] Other Start: 11-10-2021 Telephone encounter Mona Breaul t [facility] Start: 09-03-2021 End: 09-03-2021 ambulatory Kaylie Echeverria Other [facility] Other Start: 09-03-2021 Telephone encounter Kaylie Echeverria [facility] Start: 08-31-2021 End: 08-31-2021 ambulatory Kaylie Echeverria Other [facility] Other Start: 08-31-2021 Office outpatient visit 15 minutes Kaylie Echeverria [facility] Plan of Treatment Date Care Activity Detail Author Start: 09-29-2022 Aerobic Culture Aerobic Culture [place] Start: 09-29-2022 Anaerobic Culture Anaerobic Culture [facility] Start: 09-29-2022 Microscopic observat ion [Identifier] in Unspecified specimen by Gram stain Gram Stain [facility] Bacteria identified in Unspecified specimen by Aerobe culture [facility] Bacteria identified in Unspecified specimen by Anaerobe culture [facility] Payers Date Payer Category Payer Medicaid [id number] 2. [id number] 1975 Unknown [id number] 2.16.84 [id number] 1975 Unknown [id number] 2.16.84 [id number] 1975 Unknown [id number] 2.16.84 [id number] 1975 Unknown [id number] 2.16.84 [id number] 1975 Unknown [id number] 2.16.840 .[id number] 1975 Unknown [id number] 2.16.8 [id number] 1959 Unknown [id number] 2.1 [id number] 1959 Unknown [id number] [facility] [id number] Self-pay Self Pay [id number] Unknown [id number] 2.1 [id number] Social History Date Type Detail Facility Unknown if ever smoked [facility] Other Sex Assigned At Sex Assigned At Bir th [facility] Other Start: 1975 Sex Assigned At Female F [facility] Medical Equipment Procedure Code Equipment Code Equipment [...] fever. Patient/Parent verbalized understanding of treatment plan. [facility] Other 02-21-2023 Evaluation note* Encounter Date Diagnosis [...] weeks for the cough to go away [facility] Other 01-02-2023 Evaluation note* Encounter Date Diagnosis [...] obtained for C&S. Will call with results. [facility] Other 12-19-2022 Evaluation note* Encounter Date Diagnosis Assessment Notes Treatment Notes Treatment Clinical Notes Aug, Gastroesophageal ref lux disease, unspecified whether esophagitis present (ICD-10 - K21.9) Aug, PCOS (polycystic ovarian syndrome) (ICD-10 - E28.2) [facility] Other 10-18-2022 Evaluation note* Encounter Date Diagnosis Assessment Notes Treatment Notes Treatment Clinical Notes Jun, Fibromyalgia (ICD-10 - M79.7) Continue current treatment regimen. Printed off script to use as needed [facility] Other 10-04-2022 Evaluation note* Encounter Date Diagnosis Assessment Notes Treatment Notes Treatment Clinical Notes Jun, Primary hypertension (ICD-10 - I10) Jun, SJ (generalized anxiety disorder) (ICD-10 - F41.1) [facility] Other 07-07-2022 Evaluation note* Encounter Date Diagnosis Assessment Notes Treatment Notes Treatment Clinical Notes Mar, Right hip pain (ICD-10 - M25.551) [facility] Other 05-10-2022 Evaluation note* Encounter Date Diagnosis Assessment Notes Treatment Notes Treatment Clinical Notes January, Gastroesophageal ref lux disease, unspecified whether esophagitis present (ICD-10 - K21.9) Continue to take medication as directed. January, PCOS (polycystic ovarian syndrome) (ICD-10 - E28.2) Take medication as directed with food [facility] Other 03-16-2022 Evaluation note* Encounter Date Diagnosis Assessment Notes Treatment Notes Treatment Clinical Notes Nov, Sacral back pain (ICD-10 - M53.3) [facility] Other 02-14-2022 Evaluation note* Encounter Date Diagnosis Assessment Notes Treatment Notes Treatment Clinical Notes Oct, Gastroesophageal ref lux disease, unspecified whether esophagitis present (ICD-10 - K21.9) [facility] Other 02-14-2022 Evaluation note* Encounter Date Diagnosis Assessment Notes Treatment Notes Treatment Clinical Notes Oct, Sacral back pain (ICD-10 - M53.3) [facility] Other 2021 Evaluation note* Encounter Date Diagnosis [...] Patient care instructions given in writting by [facility] document. [facility] Other Evaluation noteNo InformationNort [facility] Other Evaluation noteNo assessment information available [facility] Work Phone: Hisfjhi general Narrative - Reported* Type Description Date Medical History asthma Medical History pcos Medical History Fibromyalgia Medical History Hypothyroidism - euthyroid Medical History chronic fatigue Surgical History gall bladder Surgical History vein removed in bilaterally Surgical History gastric sleeve Hospitalization History see above Hospitalization History CHILD X'S 5 [facility] Other Reason for visit NarrativeDermatology Referral Update [facility] Other Summary Purpose Family History No Family [...] section and content) DATE CREATED AUTHOR 03/27/2022 [facility] DATE CREATED AUTHOR AUTHOR'S ORGANIZ ATION 01/29/2023 [facility] DATE CREATED AUTHOR AUTHOR'S ORGANIZ ATION 10/27/2023 [facility] DATE CREATED AUTHOR AUTHOR'S ORGANIZ ATION 11/08/2023 [facility] Care Teams (unrecognized sec tion and content) [...] BE BASED ON THE PRIMARY CLINICAL RECORDS. [facility]. provides no warranty or guarantee of the accuracy or completeness of information in this document.
[2023-11-18] MEDS: 0.9 % SODIUM CHLORIDE 500 ML, LIDOCAINE HCL 20 ML, SODIUM BICARBONATE 10 MEQ INJ (09:21)
[2023-11-18] MEDS: LIDOCAINE HCL 1% 100 MG/10 ML MDV INJ (09:21)
== END 2023-11-18 08:48 | disposition home or self-care (01) ==
LOC: VC 08:48
PROVIDERS: PCP Radiology Diagnostic Radiology; Visit Provider Radiology Diagnostic Radiology
DX: I83.813 Varicose veins of bilateral lower extremities with pain (principal)
CPT/HCPCS: 36478

== ENCOUNTER 2023-11-22 09:57 | Outpatient (OUT) | payer BC, MEDICAID, SELFPAY ==
--- NOTE | 2023-11-22 09:59 | VEIN_ITS ---
Patient Name: JONNATHAN SEPULVEDA MR#: [id number] : 1975 Exam Date: 11/22/2023 Ordering Doctor: DR LIONEL MORSE M.D. RADIOLOGY REPORT PROCEDURE: FACILITY EST LMTD VEIN CENTER - OFFICE VISIT FOLLOW UP COMPARISON: None. PROGRESS NOTES: The patient reports no significant problems following intravenous laser ablation of the right anterior accessory saphenous vein. The patient has worn a compression stocking. The patient did not require oral analgesics. The patient has tried exercise Physical exam demonstrates a moderate severity bruise measuring 12 x 8 cm along medial upper right thigh likely related to tumescence injection. Thrombosed right anterior accessory saphenous vein can be palpated. Review of the ultrasound performed the same day demonstrates occlusive thrombus extending throughout the treated right anterior accessory saphenous vein. Heat induced thrombus is 0.9 cm from the saphenofemoral junction. No deep vein thrombus. The patient expressed a desire to proceed with treatment of incompetent left anterior accessory saphenous vein. VEIN/[facility] EST LMTD IMPRESSION: 1. Successful ablation of the right anterior accessory saphenous vein 2. 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 PLAN: Intravenous laser ablation left anterior accessory saphenous vein Nurse notes, history and physical were reviewed and confirmed, see attached forms. The nurse was present throughout the physical exam and consultation Dictated by: Lionel Morse MD on 11/22/2023 at 10:36 Approved by: Lionel Morse MD on 11/22/2023 at 10:38
--- NOTE | 2023-11-22 09:59 | VEIN_ITS ---
Patient Name: JONNATHAN SEPULVEDA MR#: [id number] : 1975 Exam Date: 11/22/2023 Ordering Doctor: DR LIONEL MORSE M.D. RADIOLOGY REPORT PROCEDURE: VC EXT VENOUS RT LMTD COMPARISON: None. INDICATIONS: I80.01 Phlebitis of superficial veins of right lower extremity TECHNIQUE: Lower extremity clayton scale and Duplex Doppler evaluation of the deep venous system from the inguinal ligament through the calf veins. FINDINGS: REGION: Right lower extremity. THROMBI: Negative for DVT. Heat induced thrombus in right AASV 0.9 cm from SFJ and extends to distal medial thigh. COMPRESSIBILITY: Non-compressible segments corresponding to thrombus FLOW: Areas of no flow corresponding to thrombus CONCLUSION: Post ablation occlusion of the treated right anterior accessory saphenous vein with heat induced thrombus 0.9 cm from the saphenofemoral junction Dictated by: Lionel Morse MD on 11/22/2023 at 10:30 Approved by: Lionel Morse MD on 11/22/2023 at 10:33
== END 2023-11-22 09:58 | disposition home or self-care (01) ==
LOC: VC 09:57
PROVIDERS: PCP Radiology Diagnostic Radiology; Visit Provider Radiology Diagnostic Radiology
DX: I80.01 Phlebitis and thrombophlebitis of superficial vessels of right lower extremity (principal)
CPT/HCPCS: 93971; G0463

== ENCOUNTER 2023-12-03 08:54 | Outpatient (OUT) | payer BC, MEDICAID, SELFPAY ==
--- NOTE | 2023-12-03 08:57 | VEIN_ITS ---
[address] [address] Patient Name: JONNATHAN SEPULVEDA MRN: [id number] date: 1975 Sex: F Assigned Patient Location: Current Patient Location: Accession/Order Number: [id number] Exam Date: 12/03/2023 09:00 Report Date: 12/03/2023 09:51 At the request of: TRE VALDOVINOS Procedure: VC Endovenous Ablation 1VeinLT EXAMINATION: VC Endovenous Ablation 1VeinLT HISTORY: I83.813 Bilateral painful varicose veins The risks and benefits of the procedure had been previously discussed, and were rediscussed at length. Informed written consent was obtained. Garrett Arellano RN and Taty Miranda RDMS, RVT assisted. Time out procedure was performed. The left lower extremity was prepared and draped in the usual sterile fashion to allow knee flexion in the sterile field. Duplex ultrasound probe was draped in a sterile cover, sterile transmission gel was used. Venous mapping was performed with the areas of dilation and large tributaries marked. The total length was 15 cm from the entry mid-upper thigh to 3 cm below the Saphenofemoral junction. The diameter of the left anterior accessory saphenous vein ranged from 6.6 mm. A 30 gauge needle and 1% buffered lidocaine was used to anesthetize the entry site. A 4 mm incision was made with a scalpel and the saphenous vein was entered percutaneously under direct ultrasound guidance with a micropuncture set, a single stick was successful in gaining access. A micro-guide wire was inserted and the needle removed. A micro-set including a dilator was inserted over the microwire and the needle and dilator were removed. A guide wire was inserted through the micro-set and guided through the saphenous vein to the saphenofemoral junction. The dilator was removed and an introducer sheath was inserted over the wire until the end of the sheath entered the saphenofemoral junction. The dilator and wire were removed and the 600 micron fiber was introduced and placed and positioned so that it extended beyond the sheath and was 3 cm distal to the saphenofemoral or saphenopopliteal junction. Final position of the fiber was determined by ultrasound guidance and duplex imaging. Tumescent anesthetic was delivered by ultrasound guidance. 75 cc of fluid was delivered along the entire course of the saphenous vein. The solution consisted of 1000 cc of normal saline with 40 mL of 1% lidocaine and 20 mL of sodium bicarbonate. A final positioning check was made. The energy source was turned on by means of the foot pedal and the fiber and sheath were withdrawn. The total number of Joules delivered was 815. The laser was active for 102 seconds under continuous pulse, average laser use of 8 J. Laser start time 0934 hours, 12/03/23. Laser stop time 36 hours, 12/03/23. A duplex ultrasound revealed compressibility and flow at the saphenofemoral junction immediately after the procedure. Hemostasis at the access site was achieved. The skin incision of the saphenous vein was closed with a 4 x 4. A compression stocking was applied. Postop instructions were given. A follow up appointment was recommended and scheduled. The patient tolerated the procedure well. Electronically authenticated by: REG ROYAL Date: 12/03/2023 09:51
[2023-12-03] MEDS: LIDOCAINE HCL 1% 100 MG/10 ML MDV INJ (08:58)
[2023-12-03] MEDS: 0.9 % SODIUM CHLORIDE 500 ML, LIDOCAINE HCL 20 ML, SODIUM BICARBONATE 10 MEQ INJ (08:58)
--- OUTSIDE RECORDS SUMMARY | 2023-12-03 09:02 | XMS_ITS | CCD ---
Author Name Unknown Address [address] [facility] [address] [place] [address] Organization [facility] Care Team Providers Care Podiatric Foot And Ankle Specialist Name Role Phone Kaylie Echeverria Unavailable Mona Morin Unavailable NO FAMILY, PHYSICIAN Primary Care Provider Unava CHRISTIANO Iqbal Attending Provider [phone] MONA MORIN Primary Care Unavailable MISC, DR [...] Facility (5 sources) Cephalexin Drug Allergy rash [facility] Other (12 sources) Cephalexin Drug Allergy rash [facility] Other (1 source) Sulfamethoxazole / Trimethoprim Drug Allergy 3 [facility] Medications Current Medications Medication Drug Class(es) Dates Sig (Normalized) Sig (Original) [id number] 200 actuat albuterol 0.09 mg/actuat metered dose [...] oral solution (2 sources) alpha-Adrenergic Agonist, Uncompetitive I-obeakd-W-aspartate Receptor Antagonist, Sigma-1 Agonist Start: take 10 [...] pyogenes Org specific cx Ql (Throat) Negative [facility] Other Quick Strep [facility] Other INSULINon 01-26-2023 Insulin 21.3 uIU/mL Normal 2.6-24.9 [facility] Comment on above: Performed By: #### I NSULIN #### [facility] [address] [place] [address] Dr. Yvan Manzano CORTISOLon 01-23-2023 Cortisol 11.2 ug/dL Normal 6.2-19.4 [facility] Comment on above: Result Comment: [place] Note: The reference interval and flagging for this test is for an AM collection. If this is a PM collection please use: Cortisol PM: 2.3-11.9 [facility] also offers: [id number]: Cortisol- AM 511134: Cortisol- PM Performed By: #### C BC #### [facility] [address] [place] [address] Dr. Yvan Manzano CBC AUTO DIFFon 01-22-2023 BASO # 0.1 103/ul Normal 0.0-0.1 [facility] Comment on above: Performed By: #### C BC #### [facility] [address] [place] [address] Dr. Yvan Manzano Basophils/100 WBC (Bld) 0.9 % Normal 0.2-2.0 [facility] Comment on above: Performed By: #### C BC #### [facility] [address] [place] [address] Dr. Yvan Manzano EO # 0.3 103/ul Normal 0.0-0.7 [facility] Comment on above: Performed By: #### C BC #### [facility] [address] [place] [address] Dr. Yvan Manzano Eosinophils/100 WBC (Bld) 5.7 % Normal 0.9-7.0 [facility] Comment on above: Performed By: #### C BC #### [facility] [address] [place] [address] Dr. Yvan Manzano Erythrocyte distribution width (RBC) [Ratio] 14.6 % Normal 11.0-15.0 [facility] Comment on above: Performed By: #### C BC #### [facility] [address] [place] [address] Dr. Yvan Manzano Hematocrit (Bld) [Volume fraction] 36.8 % Normal 36.0-48.0 [facility] Comment on above: Performed By: #### C BC #### [facility] [address] [place] [address] Dr. Yvan Manzano Hemoglobin (Bld) [Mass/Vol] 11.4 g/dL Critically low 12.0-16.0 [facility] Comment on above: Performed By: #### C BC #### [facility] [address] [place] [address] Dr. Yvan Manzano IG # 0.02 10e3/ul Normal 0.00-0.03 [facility] Comment on above: Performed By: #### C BC #### [facility] [address] [place] [address] Dr. Yvan Manzano IG % 0.3 % Normal 0.0-0.5 [facility] Comment on above: Performed By: #### C BC #### [facility] [address] [place] [address] Dr. Yvan Manzano LYMPH # 1.5 103/ul Normal 1.2-3.8 [facility] Comment on above: Performed By: #### C BC #### [facility] [address] [place] [address] Dr. Yvan Manzano Lymphocytes/100 WBC (Bld) 25.3 % Normal 20.5-60.0 [facility] Comment on above: Performed By: #### C BC #### [facility] [address] [place] [address] Dr. Yvan Manzano MANUAL DIFF REQ NO Normal [facility] Comment on above: Performed By: #### C BC #### [facility] [address] [place] [address] Dr. Yvan Manzano MCH (RBC) [Entitic mass] 25.2 pg Critically low 26.7-34.0 [facility] Comment on above: Performed By: #### C BC #### [facility] [address] [place] [address] Dr. Yvan Manzano MCHC (RBC) [Mass/Vol] 31.0 g/dL Normal 29.9-35.2 [facility] Comment on above: Performed By: #### C BC #### [facility] [address] [address] [address] Yvan Manzano MCV (RBC) [Entitic vol] 81.4 fL Normal 81.0-99.0 [facility] Comment on above: Performed By: #### C BC #### [facility] [address] [address] [address] Yvan Manzano MONO # 0.4 103/ul Normal 0.3-0.8 [facility] Comment on above: Performed By: #### C BC #### [facility] [address] [place] [address] Dr. Yvan Manzano Monocytes/100 WBC (Bld) 7.7 % Normal 1.7-12.0 [facility] Comment on above: Performed By: #### C BC #### [facility] [address] [place] [address] Dr. Yvan Manzano NEUT # 3.5 103/ul Normal 1.4-6.5 [facility] Comment on above: Performed By: #### C BC #### [facility] [address] [place] [address] Dr. Yvan Manzano Neutrophils/100 WBC (Bld) 60.1 % Normal 43.0-75.0 [facility] Comment on above: Performed By: #### C BC #### [facility] [address] [place] [address] Dr. Yvan Manzano Platelet mean volume (Bld) [Entitic vol] 8.8 fL Critically low 9.5-13.5 [facility] Comment on above: Performed By: #### C BC #### [facility] [address] [place] [address] Dr. Yvan Manzano PLT 347 103/ul Normal 150-450 [facility] Comment on above: Performed By: #### C BC #### [facility] [address] [place] [address] Dr. Yvan Manzano RBC 4.52 106/ul Normal 4.20-5.40 [facility] Comment on above: Performed By: #### C BC #### [facility] [address] [address] [address] Yvan Manzano WBC 5.7 103/ul Normal 4.0-11.0 [facility] Comment on above: Performed By: #### C BC #### [facility] [address] [address] [address] Yvan Manzano FREE T4on 01-22-2023 Free T4 [Mass/Vol] 0.84 ng/dL Normal 0.76-1.46 [facility] Comment on above: Performed By: #### F T4 #### [facility] [address] [place] [address] Dr. Yvan Manzano LIPID PROFILEon 01-22-2023 CHOL-HDL RATIO NORM SEE BELOW Normal [facility] Comment on above: Result Comment: 3.3 - 4.4 LOW RISK 4.4 - 7.1 AVERAGE RISK 7.1 - 11.0 MODERATE RISK >11.0 HIGH RISK Performed By: #### T SH, LIPID #### [facility] [address] [place] [address] Dr. Yvan Manzano Cholesterol [Mass/Vol] 264 mg/dL Critically high <=200 [facility] Comment on above: Performed By: #### T SH, LIPID #### [facility] [address] [place] [address] Dr. Yvan Manzano Cholesterol in HDL [Mass/Vol] 52 mg/dL Normal 40-60 [facility] Comment on above: Performed By: #### T SH, LIPID #### [facility] [address] [place] [address] Dr. Yvan Manzano Cholesterol in LDL [Mass/Vol] 173.6 mg/dL Normal [facility] Comment on above: Performed By: #### T SH, LIPID #### [facility] [address] [place] [address] Dr. Yvan Manzano Cholesterol.total/Ch olesterol in HDL [Mass ratio] 5.1 {ratio} Normal [facility] Comment on above: Performed By: #### T SH, LIPID #### [facility] [address] [address] [address] Yvan Manzano HDL NORMAL > or = 60 mg/dl - LOW CARDIOVASCULAR RISK <40 mg/dl - HIGH CARDIOVASCULAR RISK Normal [facility] Comment on above: Performed By: #### T SH, LIPID #### [facility] [address] [address] [address] Yvan Manzano LDL CALC NORMAL SEE BELOW Normal [facility] Comment on above: Result Comment: <100 mg/dl OPTIMAL 100 - 129 mg/dl NEAR OR ABOVE OPTIMAL 130 - 159 mg/dl BORDERLINE HIGH 160 - 189 mg/dl HIGH >190 mg/dl VERY HIGH Performed By: #### T SH, LIPID #### [facility] [address] [address] [address] Yvan Manzano Triglyceride [Mass/Vol] 192 mg/dL Critically high <=150 [facility] Comment on above: Performed By: #### T SH, LIPID #### [facility] [address] [place] [address] Dr. Yvan Manzano VLDL CALC 38.4 mg/dL Normal [facility] Comment on above: Performed By: #### T SH, LIPID #### [facility] [address] [address] [address] Yvan Manzano TSHon 01-22-2023 TSH 5.749 uIU/mL Critically high 0.358-3.740 [facility] Comment on above: Performed By: #### T SH, LIPID #### [facility] [address] [place] [address] Dr. Yvan Manzano GLYCOHEMOGLOBIN A1Con 2022 ADA RECOMMENDATION SEE BELOW Normal [facility] Comment on above: Result Comment: ADA RECOMMENDED LIMIT 4.0 - 6.0 ADA THERAPEUTIC TARGET < 7.0 ACTION SUGGESTED > 7.0 Performed By: #### A 1C #### [facility] [address] [place] [address] Dr. Yvan Manzano Glucose [Mass/Vol] 137 mg/dL Normal [facility] Comment on above: Performed By: #### A 1C #### [facility] [address] [place] [address] Dr. Yvan Manzano HbA1c (Bld) [Mass fraction] 6.4 % Critically high 4.5-6.2 [facility] Comment on above: Performed By: #### A 1C #### [facility] [address] [place] [address] Dr. Yvan Manzano PROF 14(COMP METB)on 023 Albumin [Mass/Vol] 3.4 g/dL Normal 3.4-5.0 [facility] Comment on above: Performed By: #### C MP #### [facility] [address] [place] [address] Dr. Yvan Manzano Albumin/Globulin [Mass ratio] 0.9 {ratio} Normal [facility] Comment on above: Performed By: #### C MP #### [facility] [address] [place] [address] Dr. Yvan Manzano ALP [Catalytic activity/Vol] 74 U/L Normal 46-116 [facility] Comment on above: Performed By: #### C MP #### [facility] [address] [place] [address] Dr. Yvan Manzano ALT [Catalytic activity/Vol] 25 U/L Normal 14-59 [facility] Comment on above: Performed By: #### C MP #### [facility] [address] [place] [address] Dr. Yvan Manzano Anion gap [Moles/Vol] 9.4 mmol/L Normal [facility] Comment on above: Performed By: #### C MP #### [facility] [address] [place] [address] Dr. Yvan Manzano AST [Catalytic activity/Vol] 17 U/L Normal 15-37 [facility] Comment on above: Performed By: #### C MP #### [facility] [address] [place] [address] Dr. Yvan Manzano Bilirubin [Mass/Vol] 0.1 mg/dL Critically low 0.2-1.0 [facility] Comment on above: Performed By: #### C MP #### [facility] [address] [place] [address] Dr. Yvan Manzano Calcium [Mass/Vol] 9.2 mg/dL Normal 8.5-10.1 [facility] Comment on above: Performed By: #### C MP #### [facility] [address] [address] [address] Yvan Manzano Chloride [Moles/Vol] 101 mmol/L Normal 98-107 [facility] Comment on above: Performed By: #### C MP #### [facility] [address] [address] [address] Yvan Manzano CO2 [Moles/Vol] 30.4 mmol/L Normal 21.0-32.0 [facility] Comment on above: Performed By: #### C MP #### [facility] [address] [place] [address] Dr. Yvan Manzano Creatinine [Mass/Vol] 0.71 mg/dL Normal 0.55-1.02 [facility] Comment on above: Performed By: #### C MP #### [facility] [address] [place] [address] Dr. Yvan Manzano EGFR-AF SWAZI >60 Normal >=60 [facility] Comment on above: Performed By: #### C MP #### [facility] [address] [place] [address] Dr. Yvan Manzano EGFR-NON AF SWAZI >60 Normal >=60 [facility] Comment on above: Performed By: #### C MP #### [facility] [address] [place] [address] Dr. Yvan Manzano Globulin (S) [Mass/Vol] 4.0 g/dL Normal [facility] Comment on above: Performed By: #### C MP #### [facility] [address] [address] [address] Yvan Manzano Glucose [Mass/Vol] 138 mg/dL Critically high 74-106 [facility] Comment on above: Performed By: #### C MP #### [facility] [address] [place] [address] Dr. Yvan Manzano Potassium [Moles/Vol] 3.8 mmol/L Normal 3.5-5.1 [facility] Comment on above: Performed By: #### C MP #### [facility] [address] [address] [address] Yvan Manzano Protein [Mass/Vol] 7.4 g/dL Normal 6.4-8.2 [facility] Comment on above: Performed By: #### C MP #### [facility] [address] [address] [address] Yvan Manzano Sodium [Moles/Vol] 137 mmol/L Normal 136-145 [facility] Comment on above: Performed By: #### C MP #### [facility] [address] [address] [address] Yvan Manzano Urea nitrogen [Mass/Vol] 13.0 mg/dL Normal 7.0-18.0 [facility] Comment on above: Performed By: #### C MP #### [facility] [address] [address] [address] Yvan Manzano Urea nitrogen/Creatinine [Mass ratio] 18.3 mg/mg Normal [facility] Comment on above: Performed By: #### C MP #### [facility] [address] [address] [address] Yvan Manzano LIPID PROFILEon 03-31-2022 CHOL-HDL RATIO NORM SEE BELOW Normal [facility] Comment on above: Result Comment: 3.3 - 4.4 LOW RISK 4.4 - 7.1 AVERAGE RISK 7.1 - 11.0 MODERATE RISK >11.0 HIGH RISK Performed By: #### C MP, LIPID #### [facility] [address] [address] [address] Yvan Manzano Cholesterol [Mass/Vol] 229 mg/dL Critically high <=200 [facility] Comment on above: Performed By: #### C MP, LIPID #### [facility] [address] [address] [address] Yvan Manzano Cholesterol in HDL [Mass/Vol] 51 mg/dL Normal 40-60 [facility] Comment on above: Performed By: #### C MP, LIPID #### [facility] [address] [address] [address] Yvan Manzano Cholesterol in LDL [Mass/Vol] 150.4 mg/dL Normal [facility] Comment on above: Performed By: #### C MP, LIPID #### [facility] [address] [address] [address] Yvan Manzano Cholesterol.total/Ch olesterol in HDL [Mass ratio] 4.5 {ratio} Normal [facility] Comment on above: Performed By: #### C MP, LIPID #### [facility] [address] [address] [address] Yvan Manzano HDL NORMAL > or = 60 mg/dl - LOW CARDIOVASCULAR RISK <40 mg/dl - HIGH CARDIOVASCULAR RISK Normal [facility] Comment on above: Performed By: #### C MP, LIPID #### [facility] [address] [place] [address] Dr. Yvan Manzano LDL CALC NORMAL SEE BELOW Normal [facility] Comment on above: Result Comment: <100 mg/dl OPTIMAL 100 - 129 mg/dl NEAR OR ABOVE OPTIMAL 130 - 159 mg/dl BORDERLINE HIGH 160 - 189 mg/dl HIGH >190 mg/dl VERY HIGH Performed By: #### C MP, LIPID #### [facility] [address] [place] [address] Dr. Yvan Manzano Triglyceride [Mass/Vol] 138 mg/dL Normal <=150 [facility] Comment on above: Performed By: #### C MP, LIPID #### [facility] [address] [place] [address] Dr. Yvan Manzano VLDL CALC 27.6 mg/dL Normal [facility] Comment on above: Performed By: #### C MP, LIPID #### [facility] [address] [address] [address] Yvan Manzano MICROALB CREAT RATIO RANDOMo n 03-31-2022 mALB 1.4 mg/L Normal <=30.0 [facility] Comment on above: Performed By: #### M CRR #### [facility] [address] [place] [address] Dr. Yvan Manzano MALB CR RATIO 6.0 mg/g Normal 0.0-29.9 [facility] Comment on above: Performed By: #### M CRR #### [facility] [address] [address] [address] Yvan Manzano MALGaby CR RATIO RANGE SEE BELOW Normal [facility] Comment on above: Result Comment: NO M ICROALBUMINURIA 0-29 MG/G CLINICAL MICROALBUMINURIA 30-300 MG/G MACROALBUMINURIA >300 MG/G Performed By: #### M CRR #### [facility] [address] [address] [address] Yvan Manzano URINE CREAT 232.88 mg/dL Normal 20.00-300.00 [facility] Comment on above: Performed By: #### M CRR #### [facility] [address] [place] [address] Dr. Yvan Manzano PROF 14(COMP METB)on 022 Albumin [Mass/Vol] 3.6 g/dL Normal 3.4-5.0 [facility] Comment on above: Performed By: #### C MP, LIPID #### [facility] [address] [place] [address] Dr. Yvan Manzano Albumin/Globulin [Mass ratio] 0.9 {ratio} Normal [facility] Comment on above: Performed By: #### C MP, LIPID #### [facility] [address] [place] [address] Dr. Yvan Manzano ALP [Catalytic activity/Vol] 63 U/L Normal 46-116 [facility] Comment on above: Performed By: #### C MP, LIPID #### [facility] [address] [place] [address] Dr. Yvan Manzano ALT [Catalytic activity/Vol] 33 U/L Normal 14-59 [facility] Comment on above: Performed By: #### C MP, LIPID #### [facility] [address] [place] [address] Dr. Yvan Manzano Anion gap [Moles/Vol] 11.7 mmol/L Normal [facility] Comment on above: Performed By: #### C MP, LIPID #### [facility] [address] [place] [address] Dr. Yvan Manzano AST [Catalytic activity/Vol] 23 U/L Normal 15-37 [facility] Comment on above: Performed By: #### C MP, LIPID #### [facility] [address] [place] [address] Dr. Yvan Manzano Bilirubin [Mass/Vol] 0.2 mg/dL Normal 0.2-1.0 [facility] Comment on above: Performed By: #### C MP, LIPID #### [facility] [address] [place] [address] Dr. Yvan Manzano Calcium [Mass/Vol] 9.5 mg/dL Normal 8.5-10.1 [facility] Comment on above: Performed By: #### C MP, LIPID #### [facility] [address] [place] [address] Dr. Yvan Manzano Chloride [Moles/Vol] 102 mmol/L Normal 98-107 [facility] Comment on above: Performed By: #### C MP, LIPID #### [facility] [address] [place] [address] Dr. Yvan Manzano CO2 [Moles/Vol] 28.0 mmol/L Normal 21.0-32.0 [facility] Comment on above: Performed By: #### C MP, LIPID #### [facility] [address] [place] [address] Dr. Yvan Manzano Creatinine [Mass/Vol] 0.71 mg/dL Normal 0.55-1.02 [facility] Comment on above: Performed By: #### C MP, LIPID #### [facility] [address] [place] [address] Dr. Yvan Manzano EGFR-AF SWAZI >60 Normal >=60 [facility] Comment on above: Performed By: #### C MP, LIPID #### [facility] [address] [place] [address] Dr. Yvan Manzano EGFR-NON AF SWAZI >60 Normal >=60 [facility] Comment on above: Performed By: #### C MP, LIPID #### [facility] [address] [place] [address] Dr. Yvan Manzano Globulin (S) [Mass/Vol] 4.0 g/dL Normal [facility] Comment on above: Performed By: #### C MP, LIPID #### [facility] [address] [address] [address] Yvan Manzano Glucose [Mass/Vol] 87 mg/dL Normal 74-106 [facility] Comment on above: Performed By: #### C MP, LIPID #### [facility] [address] [address] [address] Yvan Manzano Potassium [Moles/Vol] 3.7 mmol/L Normal 3.5-5.1 [facility] Comment on above: Performed By: #### C MP, LIPID #### [facility] [address] [place] [address] Dr. Yvan Manzano Protein [Mass/Vol] 7.6 g/dL Normal 6.4-8.2 [facility] Comment on above: Performed By: #### C MP, LIPID #### [facility] [address] [address] [address] Yvan Manzano Sodium [Moles/Vol] 138 mmol/L Normal 136-145 [facility] Comment on above: Performed By: #### C MP, LIPID #### [facility] [address] [address] [address] Yvan Manzano Urea nitrogen [Mass/Vol] 14.0 mg/dL Normal 7.0-18.0 [facility] Comment on above: Performed By: #### C MP, LIPID #### [facility] [address] [place] [address] Dr. Yvan Manzano Urea nitrogen/Creatinine [Mass ratio] 19.7 mg/mg Normal [facility] Comment on above: Performed By: #### C MP, LIPID #### [facility] [address] [place] [address] Dr. Yvan Manzano XR hip RT min 2V(w/wo pelvis )*on 03-26-2022 XR hip RT min 2V(w/wo pelvis)* [facility] [place] [address] [place] [address] XRay Report Signed Patient: Tatiana Sepulveda MR#: [id number] : 1975 Acct:[id number] Age/Sex: 46 / F ADM Date: 03/26/22 Loc: XDCLY [facility]: [facility]: Mona ALVARADO Copies to: MONA [...] Michael Harper M.D.03/26/2022 3:38 PM Dictation Location: [place] [address] Transcribed By: [facility] 03/26/22 1538 Dictated By: Michael Harper DO 03/26/22 1534 Signed By: 03/26/22 1538 Normal [facility] XR sacrum coccyx min 2Von XR sacrum coccyx min 2V [facility] [place] [address] XRay Report Signed Patient: Tatiana Sepulveda MR#: [id number] : 1975 Acct:[id number] Age/Sex: 45 / F ADM Date: 09/29/21 Loc: XDUCLY Room: [facility] Att[facility] Dr: Mona ALVARADO Ordering Provider: MONA [...] M.D.09/29/2021 4:16 PM Dictation Location: [place] [address] Transcribed By: DALTON 09/29/21 161 Dictated By: Laron Villegas II, MD 09/29/211612 Signed By: 09/29/211615 [facility] COVID Quick Testingon 2020 Result Negative [facility] Other Vital Signs Date Time Vital Sign Value Performing Clinician Facility 05-03-2023 09:05-0400 Body height 157.48 cm Priyanka Jones Other [facility] Other 05-03-2023 09:05-0400 Body mass index (BMI) [Ratio] 35.02 kg/m2 Priyanka Jones Other [facility] 05-03-2023 09:05-0400 Body temperature 97.5 [degF] Priyanka Jones Other [facility] Other 05-03-2023 09:05-0400 Body weight 86.86 kg Priyanka Jones Other [facility] Other 05-03-2023 09:05-0400 Diastolic blood pressure 76 mm[Hg] Priyanka Jones Other [facility] Other 05-03-2023 09:05-0400 Respiratory rate 18 /min Priyanka Jones Other [facility] Other 05-03-2023 09:05-0400 SaO2% (BldA) [Mass fraction] 100 % Priyanka Jones Other [facility] Other 05-03-2023 09:05-0400 Systolic blood pressure 117 mm[Hg] Priyanka Jones Other [facility] Other 11-17-2022 11:30-0500 Body height 157.48 cm Mona Yeungault Other [facility] Other 11-17-2022 11:30-0500 Body mass index (BMI) [Ratio] 35.3 kg/m2 Mona Shane Other [facility] Other 11-17-2022 11:30-0500 Body temperature 98.7 [degF] Mona Shane Other [facility] Other 11-17-2022 11:30-0500 Body weight 87.54 kg Mona Yeungault Other [facility] Other 11-17-2022 11:30-0500 Respiratory rate 18 /min Mona Yeungault Other [facility] Other 11-17-2022 11:30-0500 SaO2% (BldA) [Mass fraction] 98 % Mona Yeungault Other [facility] Other 09-28-2022 16:30-0500 Body height 157.48 cm Mona Shane Other [facility] Other 09-28-2022 16:30-0500 Body mass index (BMI) [Ratio] 35.3 kg/m2 Mona Shane Other [facility] Other 09-28-2022 16:30-0500 Body temperature 98 [degF] Mona Morin Other [facility] Other 09-28-2022 16:30-0500 Body weight 87.54 kg Mona Morin Other [facility] Other 09-28-2022 16:30-0500 Diastolic blood pressure 79 mm[Hg] Mona Morin Other [facility] Other 09-28-2022 16:30-0500 Respiratory rate 18 /min Mona Morin Other [facility] Other 09-28-2022 16:30-0500 SaO2% (BldA) [Mass fraction] 98 % Mona Morin Other [facility] Other 09-28-2022 16:30-0500 Systolic blood pressure 130 mm[Hg] Mona Morin Other [facility] Other 07-14-2022 15:00-0400 Body height 157.48 cm Mona Morin Other [facility] Other 07-14-2022 15:00-0400 Body mass index (BMI) [Ratio] 35.66 kg/m2 Mona Yeungault Other [facility] Other 07-14-2022 15:00-0400 Body weight 88.45 kg Mona Yeungault Other [facility] Other 07-14-2022 15:00-0400 Diastolic blood pressure 89 mm[Hg] Mona Shane Other [facility] Other 07-14-2022 15:00-0400 Respiratory rate 18 /min Mona Morin Other [facility] Other 07-14-2022 15:00-0400 SaO2% (BldA) [Mass fraction] 98 % Mona Morin Other [facility] Other 07-14-2022 15:00-0400 Systolic blood pressure 145 mm[Hg] Mona Morin Other [facility] Other 06-30-2022 12:00-0400 Body height 157.48 cm Mona Morin Other [facility] Other 06-30-2022 12:00-0400 Body mass index (BMI) [Ratio] 35.48 kg/m2 Mona Morin Other [facility] Other 06-30-2022 12:00-0400 Body temperature 97.7 [degF] Mona Morin Other [facility] Other 06-30-2022 12:00-0400 Body weight 88 kg Mona Morin Other [facility] Other 06-30-2022 12:00-0400 Diastolic blood pressure 87 mm[Hg] Mona Morin Other [facility] Other 06-30-2022 12:00-0400 Respiratory rate 18 /min Mona Morin Other [facility] Other 06-30-2022 12:00-0400 SaO2% (BldA) [Mass fraction] 97 % Mona Morin Other [facility] Other 06-30-2022 12:00-0400 Systolic blood pressure 136 mm[Hg] Mona Morin Other [facility] Other 02-03-2022 11:00-0400 Body height 157.48 cm Mona Morin Other [facility] Other 02-03-2022 11:00-0400 Body mass index (BMI) [Ratio] 35.84 kg/m2 Mona Morin Other [facility] Other 02-03-2022 11:00-0400 Body temperature 98.2 [degF] Mona Yeungault Other [facility] Other 02-03-2022 11:00-0400 Body weight 88.91 kg Mona Morin Other [facility] Other 02-03-2022 11:00-0400 Diastolic blood pressure 96 mm[Hg] Mona Yeungault Other [facility] Other 02-03-2022 11:00-0400 Respiratory rate 18 /min Mona Morin Other [facility] Other 02-03-2022 11:00-0400 SaO2% (BldA) [Mass fraction] 99 % Mona Yeungault Other [facility] Other 02-03-2022 11:00-0400 Systolic blood pressure 157 mm[Hg] Mona Yeungault Other [facility] Other 08-31-2021 10:00-0500 Body height 157.48 cm Kaylie Ginty Other [facility] Other 08-31-2021 10:00-0500 Body mass index (BMI) [Ratio] 35.66 kg/m2 Kaylie Ginty Other [facility] Other 08-31-2021 10:00-0500 Body temperature 98.7 [degF] Kaylie Ginty Other [facility] Other 08-31-2021 10:00-0500 Body weight 88.45 kg Kaylie Ginty Other [facility] Other 08-31-2021 10:00-0500 Respiratory rate 18 /min Kaylie Ginty Other [facility] Other 08-31-2021 10:00-0500 SaO2% (BldA) [Mass fraction] 95 % Kaylie Ginty Other [facility] Other Encounters Encounter Date Encounter Type Care Provider Facility Start: 11-04-2023 End: 11-04-2023 ambulatory TD BERUMEN [facility] Start: 10-26-2023 End: 10-26-2023 ambulatory ELSI AICHHOLZ Not Available Start: 09-13-2023 End: 09-13-2023 ambulatory ELSI AICHHOLZ Not Available Start: 05-03-2023 End: 05-03-2023 ambulatory Priyanka Jones Other [facility] Other Start: 05-03-2023 Office outpatient visit 15 minutes Priyanka Jones [facility] Start: 01-22-2023 End: 01-23-2023 ambulatory MONA MORIN Facility:[facility] Start: 11-23-2022 End: 11-23-2022 ambulatory Mona Morin Other [facility] Other Start: 11-23-2022 Telephone encounter Mona Palmerl t [facility] Start: 11-20-2022 End: 11-20-2022 ambulatory Mona Morin Other [facility] Other Start: 11-20-2022 Encounter by [employer] Mona Morin [facility] Start: 11-17-2022 End: 11-18-2022 ambulatory MONA MORIN [employer] Other Start: 11-17-2022 Office outpatient visit 15 minutes Monalawanda Morin [facility] Start: 10-06-2022 End: 10-06-2022 ambulatory Mona Morin Other [facility] Other Start: 10-06-2022 Telephone encounter Mona Palmerl t [facility] Start: 09-29-2022 End: 09-29-2022 ambulatory PHYSICIAN NO [facility] Work Phone: Start: 09-29-2022 End: 09-29-2022 Departed Referred PHYSICIAN NO [facility] [place] Work Phone: Start: 09-28-2022 End: 09-28-2022 ambulatory Mona Morin Other [facility] Other Start: 09-28-2022 Office outpatient visit 15 minutes Mona Morin [facility] Start: 09-14-2022 End: 09-14-2022 ambulatory Mona Morin Other [facility] Other Start: 09-14-2022 Telephone encounter Mona Breaul t [facility] Start: 07-14-2022 End: 07-14-2022 ambulatory Monalawanda Morin Other [facility] Other Start: 07-14-2022 Office outpatient visit 15 minutes Monalawanda Morin [facility] Start: 06-30-2022 End: 06-30-2022 ambulatory Monalawanda Morin Other [facility] Other Start: 06-30-2022 Office outpatient visit 15 minutes Monalawanda Morin [facility] Start: 04-02-2022 End: 04-02-2022 ambulatory Monanara Morin Other [facility] Other Start: 04-02-2022 Telephone encounter Mona Breaul t [facility] Start: 03-31-2022 Telephone encounter Mona Breaul t [facility] Start: 03-31-2022 End: 04-01-2022 ambulatory MONALAWANDA MORIN [employer] [employer] Other Start: 02-03-2022 End: 02-03-2022 ambulatory Monalawanda Morin Other [facility] Other Start: 02-03-2022 Office outpatient visit 15 minutes Monalawanda Morin [facility] Start: 12-10-2021 End: 12-10-2021 ambulatory Monanara Morin Other [facility] Other Start: 12-10-2021 Telephone encounter Mona Breaul t [facility] Start: 11-10-2021 End: 11-10-2021 ambulatory Monanara Morin Other [facility] Other Start: 11-10-2021 Telephone encounter Mona Breaul t [facility] Start: 09-03-2021 End: 09-03-2021 ambulatory Kaylie Echeverria Other [facility] Other Start: 09-03-2021 Telephone encounter Kaylie Echeverria [facility] Start: 08-31-2021 End: 08-31-2021 ambulatory Kaylie Echeverria Other [facility] Other Start: 08-31-2021 Office outpatient visit 15 minutes Kaylie Echeverria [facility] Plan of Treatment Date Care Activity Detail Author Start: 09-29-2022 Aerobic Culture Aerobic Culture [facility] Start: 09-29-2022 Anaerobic Culture Anaerobic Culture [facility] Start: 09-29-2022 Microscopic observat ion [Identifier] in Unspecified specimen by Gram stain Gram Stain [facility] Bacteria identified in Unspecified specimen by Aerobe culture [facility] Bacteria identified in Unspecified specimen by Anaerobe culture [facility] Payers Date Payer Category Payer Medicaid [id number] 2. [id number] 1975 Unknown [id number] 2.16.84 [id number] 1975 Unknown [id number] 2.16.84 [id number] 1975 Unknown [id number] 2.16.84 [id number] 1975 Unknown [id number] 2.16.84 [id number] 1975 Unknown [id number] [id number] 1975 Unknown [id number] 2.16.8 [id number] 1959 Unknown [id number] 2.1 [id number] 1959 Unknown [id number] [facility] [id number] Self-pay Self Pay [id number] Unknown [id number] 2.1 [id number] Social History Date Type Detail Facility Unknown if ever smoked [facility] Other Sex Assigned At Sex Assigned At Bir th [facility] Other Start: 1975 Sex Assigned At Female F [facility] Medical Equipment Procedure Code Equipment Code Equipment [...] fever. Patient/Parent verbalized understanding of treatment plan. [facility] Other 02-21-2023 Evaluation note* Encounter Date Diagnosis [...] weeks for the cough to go away [facility] Other 01-02-2023 Evaluation note* Encounter Date Diagnosis [...] obtained for C&S. Will call with results. [facility] Other 12-19-2022 Evaluation note* Encounter Date Diagnosis Assessment Notes Treatment Notes Treatment Clinical Notes Aug, Gastroesophageal ref lux disease, unspecified whether esophagitis present (ICD-10 - K21.9) Aug, PCOS (polycystic ovarian syndrome) (ICD-10 - E28.2) [facility] Other 10-18-2022 Evaluation note* Encounter Date Diagnosis Assessment Notes Treatment Notes Treatment Clinical Notes Jun, Fibromyalgia (ICD-10 - M79.7) Continue current treatment regimen. Printed off script to use as needed [facility] Other 10-04-2022 Evaluation note* Encounter Date Diagnosis Assessment Notes Treatment Notes Treatment Clinical Notes Jun, Primary hypertension (ICD-10 - I10) Jun, SJ (generalized anxiety disorder) (ICD-10 - F41.1) [facility] Other 07-07-2022 Evaluation note* Encounter Date Diagnosis Assessment Notes Treatment Notes Treatment Clinical Notes Mar, Right hip pain (ICD-10 - M25.551) [facility] Other 05-10-2022 Evaluation note* Encounter Date Diagnosis Assessment Notes Treatment Notes Treatment Clinical Notes January, Gastroesophageal ref lux disease, unspecified whether esophagitis present (ICD-10 - K21.9) Continue to take medication as directed. January, PCOS (polycystic ovarian syndrome) (ICD-10 - E28.2) Take medication as directed with food [facility] Other 03-16-2022 Evaluation note* Encounter Date Diagnosis Assessment Notes Treatment Notes Treatment Clinical Notes Nov, Sacral back pain (ICD-10 - M53.3) [facility] Other 02-14-2022 Evaluation note* Encounter Date Diagnosis Assessment Notes Treatment Notes Treatment Clinical Notes Oct, Gastroesophageal ref lux disease, unspecified whether esophagitis present (ICD-10 - K21.9) [facility] Other 02-14-2022 Evaluation note* Encounter Date Diagnosis Assessment Notes Treatment Notes Treatment Clinical Notes Oct, Sacral back pain (ICD-10 - M53.3) [facility] Other 2021 Evaluation note* Encounter Date Diagnosis [...] Patient care instructions given in writting by [facility] document. [facility] Other Evaluation noteNo [employer] Other Evaluation noteNo assessment information available [facility] Work Phone: [facility] Narrative - Reported* Type Description Date Medical History asthma Medical History pcos Medical History Fibromyalgia Medical History Hypothyroidism - euthyroid Medical History chronic fatigue Surgical History gall bladder Surgical History vein removed in bilaterally Surgical History gastric sleeve Hospitalization History see above Hospitalization History CHILD X'S 5 [facility] Other Reason for visit NarrativeDermatology Referral Update [facility] Other Summary Purpose Family History No Family [...] section and content) DATE CREATED AUTHOR 03/27/2022 [facility] DATE CREATED AUTHOR AUTHOR'S ORGANIZ ATION 01/29/2023 [facility] DATE CREATED AUTHOR AUTHOR'S ORGANIZ ATION 10/27/2023 [facility] EPIC DATE CREATED AUTHOR AUTHOR'S ORGANIZ ATION 11/08/2023 [facility] Care Teams (unrecognized sec tion and [...] BE BASED ON THE PRIMARY CLINICAL RECORDS. [employer] [facility]. provides no warranty or guarantee of the accuracy or completeness of information in this document.
== END 2023-12-03 08:55 | disposition home or self-care (01) ==
LOC: VC 08:54
PROVIDERS: PCP Radiology Diagnostic Radiology; Visit Provider Radiology Diagnostic Radiology
DX: I83.813 Varicose veins of bilateral lower extremities with pain (principal)
CPT/HCPCS: 36478

== ENCOUNTER 2023-12-09 09:11 | Outpatient (OUT) | payer BC, MEDICAID, SELFPAY ==
--- NOTE | 2023-12-09 09:13 | VEIN_ITS ---
Patient Name: JONNATHAN SEPULVEDA MR#: [id number] : 1975 Exam Date: 12/09/2023 Ordering Doctor: DR TRE VALDOVINOS M.D. RADIOLOGY REPORT PROCEDURE: VC EXT VENOUS LT LIMITED COMPARISON: None. INDICATIONS: Phlebitis of superficial vein of lt lower extremity I80.02 TECHNIQUE: Lower extremity clayton scale and Duplex Doppler evaluation of the deep venous system from the inguinal ligament through the calf veins. FINDINGS: REGION: Left lower extremity. THROMBI: Negative for DVT. Heat induced thrombus visualized 1.2cm from the SFJ. The heat induced thrombus extends from groin to distal thigh. COMPRESSIBILITY: Non-compressible segments corresponding to thrombus FLOW: Areas of no flow corresponding to thrombus OTHER: CONCLUSION: 1. Successful post ablation occlusion of left anterior accessory saphenous vein. Dictated by: Hugo Gant M.D. on 12/09/2023 at 09:54 Approved by: Hugo Gant M.D. on 12/09/2023 at 09:55
--- NOTE | 2023-12-09 09:13 | VEIN_ITS ---
Patient Name: JONNATHAN SEPULVEDA MR#: [id number] : 1975 Exam Date: 12/09/2023 Ordering Doctor: DR TRE VALDOVINOS M.D. RADIOLOGY REPORT PROCEDURE: [facility] - OFFICE VISIT FOLLOW UP [facility] PROGRESS NOTES: The patient reports improvement in leg symptoms. There has been interval reduction in varicosities. The patient has followed our recommendations to walk 20-30 minutes once or twice per day since the procedure. Physical exam demonstrates decrease in varicosities of the leg. Persistent varicosities are identified along the legs bilaterally. Review of the ultrasound performed the same day demonstrates occlusive thrombus extending throughout the treated vein(s), see separate report, consistent with a successful ablation. No thrombus extending into or beyond the saphenofemoral junction. The patient expressed a desire to proceed with treatment of remaining incompetent varicosities. The patient was informed that treatment was a process and would require several procedures/sessions. [facility]: 1. Successful ablation of the left anterior accessory saphenous vein(s). 2. Persistent varicose veins and lower extremity symptoms. PLAN: 1. Endovenous laser ablation of right small saphenous vein. 2. Followed by microfoam chemical ablation of remaining incompetent branch saphenous varicosities. Nurse notes, history and physical were reviewed and confirmed, see attached forms. The nurse was present throughout the physical exam and consultation Dictated by: Hugo Gant M.D. on 12/09/2023 at 09:55 Approved by: Hugo Gant M.D. on 12/09/2023 at 09:56
--- OUTSIDE RECORDS SUMMARY | 2023-12-09 09:16 | XMS_ITS | CCD ---
Author Name Unknown Address [address] [facility] [address] [place] [address] Organization [facility] Care Team Providers Care Special Crimes Investigator Name Role Phone Kaylie Echeverria Unavailable Mona Morin Unavailable NO FAMILY, PHYSICIAN Primary Care Provider Unava CHRISTIANO Iqbal Attending Provider MONA MORIN Primary Care Unavailable MISC, DR ELIAS Attending Unavailable MISC, DR ELIAS Admitting Unavailable ERICK, KENDRA CALZADA Consulting Unavailable MONA MORIN Consulting Unavailable MONA MORIN Primary Care Unavailable MOAN MORIN Admitting Unavailable MONA MORIN Attending Unavailable [...] Facility (5 sources) Cephalexin Drug Allergy rash V[facility] Imaging Other (12 sources) Cephalexin Drug Allergy rash [facility] Other (1 source) Sulfamethoxazole / Trimethoprim Drug Allergy 3 [facility] Repository Medications Current Medications Medication Drug Class(es) Dates Sig (Normalized) Sig (Original) [id number] 200 actuat albuterol 0.09 mg/actuat metered dose [...] oral solution (2 sources) alpha-Adrenergic Agonist, Uncompetitive M-onlfvc-F-aspartate Receptor Antagonist, Sigma-1 Agonist Start: take 10 [...] pyogenes Org specific cx Ql (Throat) Negative [facility] Other Quick Strep [facility] Other INSULINon 01-26-2023 Insulin 21.3 uIU/mL Normal 2.6-24.9 [facility] Comment on above: Performed By: #### I NSULIN #### [facility] [address] [place] [address] Dr. Yvan Manzano CORTISOLon 01-23-2023 Cortisol 11.2 ug/dL Normal 6.2-19.4 [facility] Comment on above: Result Comment: [place] Note: The reference interval and flagging for this test is for an AM collection. If this is a PM collection please use: Cortisol PM: 2.3-11.9 [facility] also offers: [id number]: Cortisol- AM [id number]: Cortisol- PM Performed By: #### C BC #### [facility] [address] [place] [address] Dr. Yvan Manzano CBC AUTO DIFFon 01-22-2023 BASO # 0.1 103/ul Normal 0.0-0.1 [facility] Comment on above: Performed By: #### C BC #### [facility] [address] [place] [address] Dr. Yvan Manzano Basophils/100 WBC (Bld) 0.9 % Normal 0.2-2.0 [facility] Comment on above: Performed By: #### C BC #### [facility] [address] [place] [address] Dr. Yvan Manzano EO # 0.3 103/ul Normal 0.0-0.7 [facility] Comment on above: Performed By: #### C BC #### [facility] [address] [place] [address] Dr. Yvan Manzano Eosinophils/100 WBC (Bld) 5.7 % Normal 0.9-7.0 [facility] Comment on above: Performed By: #### C BC #### [facility] [address] [place] [address] Dr. Yvan Manzano Erythrocyte distribution width (RBC) [Ratio] 14.6 % Normal 11.0-15.0 [facility] Comment on above: Performed By: #### C BC #### [facility] [address] [place] [address] Dr. Yvan Manzano Hematocrit (Bld) [Volume fraction] 36.8 % Normal 36.0-48.0 [facility] Comment on above: Performed By: #### C BC #### [facility] [address] [place] [address] Dr. Yvan Manzano Hemoglobin (Bld) [Mass/Vol] 11.4 g/dL Critically low 12.0-16.0 [facility] Comment on above: Performed By: #### C BC #### [facility] [address] [place] [address] Dr. Yvan Manzano IG # 0.02 10e3/ul Normal 0.00-0.03 [facility] Comment on above: Performed By: #### C BC #### [facility] [address] [place] [address] Dr. Yvan Manzano IG % 0.3 % Normal 0.0-0.5 [facility] Comment on above: Performed By: #### C BC #### [facility] [address] [place] [address] Dr. Yvan Manzano LYMPH # 1.5 103/ul Normal 1.2-3.8 [facility] Comment on above: Performed By: #### C BC #### [facility] [address] [place] [address] Dr. Yvan Manzano Lymphocytes/100 WBC (Bld) 25.3 % Normal 20.5-60.0 [facility] Comment on above: Performed By: #### C BC #### [facility] [address] [place] [address] Dr. Yvan Manzano MANUAL DIFF REQ NO Normal [facility] Comment on above: Performed By: #### C BC #### [facility] [address] [place] [address] Dr. Yvan Manzano MCH (RBC) [Entitic mass] 25.2 pg Critically low 26.7-34.0 [facility] Comment on above: Performed By: #### C BC #### [facility] [address] [place] [address] Dr. Yvan Manzano MCHC (RBC) [Mass/Vol] 31.0 g/dL Normal 29.9-35.2 [facility] Comment on above: Performed By: #### C BC #### [facility] [address] [address] [address] Yvan Manzano MCV (RBC) [Entitic vol] 81.4 fL Normal 81.0-99.0 [facility] Comment on above: Performed By: #### C BC #### [facility] [address] [address] [address] Yvan Manzano MONO # 0.4 103/ul Normal 0.3-0.8 [facility] Comment on above: Performed By: #### C BC #### [facility] [address] [place] [address] Dr. Yvan Manzano Monocytes/100 WBC (Bld) 7.7 % Normal 1.7-12.0 [facility] Comment on above: Performed By: #### C BC #### [facility] [address] [place] [address] Dr. Yvan Manzano NEUT # 3.5 103/ul Normal 1.4-6.5 [facility] Comment on above: Performed By: #### C BC #### [facility] [address] [place] [address] Dr. Yvan Manzano Neutrophils/100 WBC (Bld) 60.1 % Normal 43.0-75.0 [facility] Comment on above: Performed By: #### C BC #### [facility] [address] [place] [address] Dr. Yvan Manzano Platelet mean volume (Bld) [Entitic vol] 8.8 fL Critically low 9.5-13.5 [facility] Comment on above: Performed By: #### C BC #### [facility] [address] [place] [address] Dr. Yvan Manzano PLT 347 103/ul Normal 150-450 [facility] Comment on above: Performed By: #### C BC #### [facility] [address] [place] [address] Dr. Yvan Manzano RBC 4.52 106/ul Normal 4.20-5.40 [facility] Comment on above: Performed By: #### C BC #### [facility] [address] [address] [address] Yvan Manzano WBC 5.7 103/ul Normal 4.0-11.0 [facility] Comment on above: Performed By: #### C BC #### [facility] [address] [address] [address] Yvan Manzano FREE T4on 01-22-2023 Free T4 [Mass/Vol] 0.84 ng/dL Normal 0.76-1.46 [facility] Comment on above: Performed By: #### F T4 #### [facility] [address] [place] [address] Dr. Yvan Manzano LIPID PROFILEon 01-22-2023 CHOL-HDL RATIO NORM SEE BELOW Normal [facility] Comment on above: Result Comment: 3.3 - 4.4 LOW RISK 4.4 - 7.1 AVERAGE RISK 7.1 - 11.0 MODERATE RISK >11.0 HIGH RISK Performed By: #### T SH, LIPID #### [facility] [address] [place] [address] Dr. Yvan Manzano Cholesterol [Mass/Vol] 264 mg/dL Critically high <=200 [facility] Comment on above: Performed By: #### T SH, LIPID #### [facility] [address] [place] [address] Dr. Yvan Manzano Cholesterol in HDL [Mass/Vol] 52 mg/dL Normal 40-60 [facility] Comment on above: Performed By: #### T SH, LIPID #### [facility] [address] [place] [address] Dr. Yvan Manzano Cholesterol in LDL [Mass/Vol] 173.6 mg/dL Normal [facility] Comment on above: Performed By: #### T SH, LIPID #### [facility] [address] [place] [address] Dr. Yvan Manzano Cholesterol.total/Ch olesterol in HDL [Mass ratio] 5.1 {ratio} Normal [facility] Comment on above: Performed By: #### T SH, LIPID #### [facility] [address] [address] [address] Yvan Manzano HDL NORMAL > or = 60 mg/dl - LOW CARDIOVASCULAR RISK <40 mg/dl - HIGH CARDIOVASCULAR RISK Normal [facility] Comment on above: Performed By: #### T SH, LIPID #### [facility] [address] [address] [address] Yvan Manzano LDL CALC NORMAL SEE BELOW Normal [facility] Comment on above: Result Comment: <100 mg/dl OPTIMAL 100 - 129 mg/dl NEAR OR ABOVE OPTIMAL 130 - 159 mg/dl BORDERLINE HIGH 160 - 189 mg/dl HIGH >190 mg/dl VERY HIGH Performed By: #### T SH, LIPID #### [facility] [address] [address] [address] Yvan Manzano Triglyceride [Mass/Vol] 192 mg/dL Critically high <=150 [facility] Comment on above: Performed By: #### T SH, LIPID #### [facility] [address] [place] [address] Dr. Yvan Manzano VLDL CALC 38.4 mg/dL Normal [facility] Comment on above: Performed By: #### T SH, LIPID #### [facility] [address] [address] [address] Yvan Manzano TSHon 01-22-2023 TSH 5.749 uIU/mL Critically high 0.358-3.740 [facility] Comment on above: Performed By: #### T SH, LIPID #### [facility] [address] [place] [address] Dr. Yvan Manzano GLYCOHEMOGLOBIN A1Con 2022 ADA RECOMMENDATION SEE BELOW Normal [facility] Comment on above: Result Comment: ADA RECOMMENDED LIMIT 4.0 - 6.0 ADA THERAPEUTIC TARGET < 7.0 ACTION SUGGESTED > 7.0 Performed By: #### A 1C #### [facility] [address] [place] [address] Dr. Yvan Manzano Glucose [Mass/Vol] 137 mg/dL Normal [facility] Comment on above: Performed By: #### A 1C #### [facility] [address] [place] [address] Dr. Yvan Manzano HbA1c (Bld) [Mass fraction] 6.4 % Critically high 4.5-6.2 [facility] Comment on above: Performed By: #### A 1C #### [facility] [address] [place] [address] Dr. Yvan Manzano PROF 14(COMP METB)on 023 Albumin [Mass/Vol] 3.4 g/dL Normal 3.4-5.0 [facility] Comment on above: Performed By: #### C MP #### [facility] [address] [place] [address] Dr. Yvan Manzano Albumin/Globulin [Mass ratio] 0.9 {ratio} Normal [facility] Comment on above: Performed By: #### C MP #### [facility] [address] [place] [address] Dr. Yvan Manzano ALP [Catalytic activity/Vol] 74 U/L Normal 46-116 [facility] Comment on above: Performed By: #### C MP #### [facility] [address] [place] [address] Dr. Yvan Manzano ALT [Catalytic activity/Vol] 25 U/L Normal 14-59 [facility] Comment on above: Performed By: #### C MP #### [facility] [address] [place] [address] Dr. Yvan Manzano Anion gap [Moles/Vol] 9.4 mmol/L Normal [facility] Comment on above: Performed By: #### C MP #### [facility] [address] [place] [address] Dr. Yvan Manzano AST [Catalytic activity/Vol] 17 U/L Normal 15-37 [facility] Comment on above: Performed By: #### C MP #### [facility] [address] [place] [address] Dr. Yvan Manzano Bilirubin [Mass/Vol] 0.1 mg/dL Critically low 0.2-1.0 [facility] Comment on above: Performed By: #### C MP #### [facility] [address] [place] [address] Dr. Yvan Manzano Calcium [Mass/Vol] 9.2 mg/dL Normal 8.5-10.1 [facility] Comment on above: Performed By: #### C MP #### [facility] [address] [address] [address] Yvan Manzano Chloride [Moles/Vol] 101 mmol/L Normal 98-107 [facility] Comment on above: Performed By: #### C MP #### [facility] [address] [address] [address] Yvan Manzano CO2 [Moles/Vol] 30.4 mmol/L Normal 21.0-32.0 [facility] Comment on above: Performed By: #### C MP #### [facility] [address] [place] [address] Dr. Yvan Manzano Creatinine [Mass/Vol] 0.71 mg/dL Normal 0.55-1.02 [facility] Comment on above: Performed By: #### C MP #### [facility] [address] [place] [address] Dr. Yvan Manzano EGFR-AF KOSOVAN >60 Normal >=60 [facility] Comment on above: Performed By: #### C MP #### [facility] [address] [place] [address] Dr. Yvan Manzano EGFR-NON AF KOSOVAN >60 Normal >=60 [facility] Comment on above: Performed By: #### C MP #### [facility] [address] [place] [address] Dr. Yvan Manzano Globulin (S) [Mass/Vol] 4.0 g/dL Normal [facility] Comment on above: Performed By: #### C MP #### [facility] [address] [address] [address] Yvan Manzano Glucose [Mass/Vol] 138 mg/dL Critically high 74-106 [facility] Comment on above: Performed By: #### C MP #### [facility] [address] [place] [address] Dr. Yvan Manzano Potassium [Moles/Vol] 3.8 mmol/L Normal 3.5-5.1 [facility] Comment on above: Performed By: #### C MP #### [facility] [address] [address] [address] Yvan Manzano Protein [Mass/Vol] 7.4 g/dL Normal 6.4-8.2 [facility] Comment on above: Performed By: #### C MP #### [facility] [address] [address] [address] Yvan Manzano Sodium [Moles/Vol] 137 mmol/L Normal 136-145 [facility] Comment on above: Performed By: #### C MP #### [facility] [address] [address] [address] Yvan Manzano Urea nitrogen [Mass/Vol] 13.0 mg/dL Normal 7.0-18.0 [facility] Comment on above: Performed By: #### C MP #### [facility] [address] [address] [address] Yvan Manzano Urea nitrogen/Creatinine [Mass ratio] 18.3 mg/mg Normal [facility] Comment on above: Performed By: #### C MP #### [facility] [address] [address] [address] Yvan Manzano LIPID PROFILEon 03-31-2022 CHOL-HDL RATIO NORM SEE BELOW Normal [facility] Comment on above: Result Comment: 3.3 - 4.4 LOW RISK 4.4 - 7.1 AVERAGE RISK 7.1 - 11.0 MODERATE RISK >11.0 HIGH RISK Performed By: #### C MP, LIPID #### [facility] [address] [address] [address] Yvan Manzano Cholesterol [Mass/Vol] 229 mg/dL Critically high <=200 [facility] Comment on above: Performed By: #### C MP, LIPID #### [facility] [address] [address] [address] Yvan Manzano Cholesterol in HDL [Mass/Vol] 51 mg/dL Normal 40-60 [facility] Comment on above: Performed By: #### C MP, LIPID #### [facility] [address] [address] [address] Yvan Manzano Cholesterol in LDL [Mass/Vol] 150.4 mg/dL Normal [facility] Comment on above: Performed By: #### C MP, LIPID #### [facility] [address] [address] [address] Yvan Manzano Cholesterol.total/Ch olesterol in HDL [Mass ratio] 4.5 {ratio} Normal [facility] Comment on above: Performed By: #### C MP, LIPID #### [facility] [address] [address] [address] Yvan Manzano HDL NORMAL > or = 60 mg/dl - LOW CARDIOVASCULAR RISK <40 mg/dl - HIGH CARDIOVASCULAR RISK Normal [facility] Comment on above: Performed By: #### C MP, LIPID #### [facility] [address] [place] [address] Dr. Yvan Manzano LDL CALC NORMAL SEE BELOW Normal [facility] Comment on above: Result Comment: <100 mg/dl OPTIMAL 100 - 129 mg/dl NEAR OR ABOVE OPTIMAL 130 - 159 mg/dl BORDERLINE HIGH 160 - 189 mg/dl HIGH >190 mg/dl VERY HIGH Performed By: #### C MP, LIPID #### [facility] [address] [place] [address] Dr. Yvan Manzano Triglyceride [Mass/Vol] 138 mg/dL Normal <=150 [facility] Comment on above: Performed By: #### C MP, LIPID #### [facility] [address] [place] [address] Dr. Yvan Manzano VLDL CALC 27.6 mg/dL Normal [facility] Comment on above: Performed By: #### C MP, LIPID #### [facility] [address] [address] [address] Yvan Manzano MICROALB CREAT RATIO RANDOMo n 03-31-2022 mALB 1.4 mg/L Normal <=30.0 [facility] Comment on above: Performed By: #### M CRR #### [facility] [address] [place] [address] Dr. Yvan Manzano MALB CR RATIO 6.0 mg/g Normal 0.0-29.9 [facility] Comment on above: Performed By: #### M CRR #### [facility] [address] [address] [address] Yvan Manzano MALGaby CR RATIO RANGE SEE BELOW Normal [facility] Comment on above: Result Comment: NO M ICROALBUMINURIA 0-29 MG/G CLINICAL MICROALBUMINURIA 30-300 MG/G MACROALBUMINURIA >300 MG/G Performed By: #### M CRR #### [facility] [address] [address] [address] Yvan Manzano URINE CREAT 232.88 mg/dL Normal 20.00-300.00 [facility] Comment on above: Performed By: #### M CRR #### [facility] [address] [place] [address] Dr. Yvan Manzano PROF 14(COMP METB)on 022 Albumin [Mass/Vol] 3.6 g/dL Normal 3.4-5.0 [facility] Comment on above: Performed By: #### C MP, LIPID #### [facility] [address] [place] [address] Dr. Yvan Manzano Albumin/Globulin [Mass ratio] 0.9 {ratio} Normal [facility] Comment on above: Performed By: #### C MP, LIPID #### [facility] [address] [place] [address] Dr. Yvan Manzano ALP [Catalytic activity/Vol] 63 U/L Normal 46-116 [facility] Comment on above: Performed By: #### C MP, LIPID #### [facility] [address] [place] [address] Dr. Yvan Manzano ALT [Catalytic activity/Vol] 33 U/L Normal 14-59 [facility] Comment on above: Performed By: #### C MP, LIPID #### [facility] [address] [place] [address] Dr. Yvan Manzano Anion gap [Moles/Vol] 11.7 mmol/L Normal [facility] Comment on above: Performed By: #### C MP, LIPID #### [facility] [address] [place] [address] Dr. Yvan Manzano AST [Catalytic activity/Vol] 23 U/L Normal 15-37 [facility] Comment on above: Performed By: #### C MP, LIPID #### [facility] [address] [place] [address] Dr. Yvan Manzano Bilirubin [Mass/Vol] 0.2 mg/dL Normal 0.2-1.0 [facility] Comment on above: Performed By: #### C MP, LIPID #### [facility] [address] [place] [address] Dr. Yvan Manzano Calcium [Mass/Vol] 9.5 mg/dL Normal 8.5-10.1 [facility] Comment on above: Performed By: #### C MP, LIPID #### [facility] [address] [place] [address] Dr. Yvan Manzano Chloride [Moles/Vol] 102 mmol/L Normal 98-107 [facility] Comment on above: Performed By: #### C MP, LIPID #### [facility] [address] [place] [address] Dr. Yvan Manzano CO2 [Moles/Vol] 28.0 mmol/L Normal 21.0-32.0 [facility] Comment on above: Performed By: #### C MP, LIPID #### [facility] [address] [place] [address] Dr. Yvan Manzano Creatinine [Mass/Vol] 0.71 mg/dL Normal 0.55-1.02 [facility] Comment on above: Performed By: #### C MP, LIPID #### [facility] [address] [place] [address] Dr. Yvan Manzano EGFR-AF KOSOVAN >60 Normal >=60 [facility] Comment on above: Performed By: #### C MP, LIPID #### [facility] [address] [place] [address] Dr. Yvan Manzano EGFR-NON AF KOSOVAN >60 Normal >=60 [facility] Comment on above: Performed By: #### C MP, LIPID #### [facility] [address] [place] [address] Dr. Yvan Manzano Globulin (S) [Mass/Vol] 4.0 g/dL Normal [facility] Comment on above: Performed By: #### C MP, LIPID #### [facility] [address] [address] [address] Yvan Manzano Glucose [Mass/Vol] 87 mg/dL Normal 74-106 [facility] Comment on above: Performed By: #### C MP, LIPID #### [facility] [address] [address] [address] Yvan Manzano Potassium [Moles/Vol] 3.7 mmol/L Normal 3.5-5.1 [facility] Comment on above: Performed By: #### C MP, LIPID #### [facility] [address] [place] [address] Dr. Yvan Manzano Protein [Mass/Vol] 7.6 g/dL Normal 6.4-8.2 [facility] Comment on above: Performed By: #### C MP, LIPID #### [facility] [address] [address] [address] Yvan Manzano Sodium [Moles/Vol] 138 mmol/L Normal 136-145 [facility] Comment on above: Performed By: #### C MP, LIPID #### [facility] [address] [address] [address] Yvan Manzano Urea nitrogen [Mass/Vol] 14.0 mg/dL Normal 7.0-18.0 [facility] Comment on above: Performed By: #### C MP, LIPID #### [facility] [address] [place] [address] Dr. Yvan Manzano Urea nitrogen/Creatinine [Mass ratio] 19.7 mg/mg Normal [facility] Comment on above: Performed By: #### C MP, LIPID #### [facility] [address] [place] [address] Dr. Yvan Manzano XR hip RT min 2V(w/wo pelvis )*on 03-26-2022 XR hip RT min 2V(w/wo pelvis)* [facility] [place] [address] [place] [address] XRay Report Signed Patient: Tatiana Sepulveda MR#: [id number] : 1975 Acct:[id number] Age/Sex: 46 / F ADM Date: 03/26/22 Loc: XDCLY [facility]: [facility]: Mona ALVARADO Copies to: MONA [...] Michael Harper M.D.03/26/2022 3:38 PM Dictation Location: [place] [address] Transcribed By: [facility] 03/26/22 1538 Dictated By: Michael Harper DO 03/26/22 1534 Signed By: 03/26/22 [address] [facility] XR sacrum coccyx min 2Von XR sacrum coccyx min 2V [facility] [place] [address] XRay Report Signed Patient: Tatiana Sepulveda MR#: [id number] : 1975 Acct:[id number] Age/Sex: 45 / F ADM Date: 09/29/21 Loc: XDUCLY [facility]: [facility]: Mona ALVARADO Ordering Provider: MONA [...] Laron Villegas M.D.09/29/2021 4:16 PM Dictation Location: [place] [address] Transcribed By: DALTON 09/29/21 161 Dictated By: Laron Villegas II, MD 09/29/211612 Signed By: 09/29/211615 [facility] COVID Quick Testingon 2020 Result Negative [facility] Other Vital Signs Date Time Vital Sign Value Performing Clinician Facility 05-03-2023 09:05-0400 Body height 157.48 cm Priyanka Jones Other [facility] Other 05-03-2023 09:05-0400 Body mass index (BMI) [Ratio] 35.02 kg/m2 Priyanka Jones [facility] Other 05-03-2023 09:05-0400 Body temperature 97.5 [degF] Priyanka Jones [facility] Other 05-03-2023 09:05-0400 Body weight 86.86 kg Priyanka Jones Other [facility] Other 05-03-2023 09:05-0400 Diastolic blood pressure 76 mm[Hg] Priyanka Jones [facility] Other 05-03-2023 09:05-0400 Respiratory rate 18 /min Priyanka Jones [facility] Other 05-03-2023 09:05-0400 SaO2% (BldA) [Mass fraction] 100 % Priyanka Jones [facility] Other 05-03-2023 09:05-0400 Systolic blood pressure 117 mm[Hg] Priyanka Jones [facility] Other 11-17-2022 11:30-0500 Body height 157.48 cm Mona Yeungault Other [facility] Other 11-17-2022 11:30-0500 Body mass index (BMI) [Ratio] 35.3 kg/m2 Mona Shane Other [facility] Other 11-17-2022 11:30-0500 Body temperature 98.7 [degF] Mona Shane Other [facility] Other 11-17-2022 11:30-0500 Body weight 87.54 kg Mona Yeungault Other [facility] Other 11-17-2022 11:30-0500 Respiratory rate 18 /min Mona Yeungault Other [facility] Other 11-17-2022 11:30-0500 SaO2% (BldA) [Mass fraction] 98 % Mona Yeungault Other [facility] Other 09-28-2022 16:30-0500 Body height 157.48 cm Mona Shane Other [facility] Other 09-28-2022 16:30-0500 Body mass index (BMI) [Ratio] 35.3 kg/m2 Mona Shane [facility] Other 09-28-2022 16:30-0500 Body temperature 98 [degF] Mona Morin Other [facility] Other 09-28-2022 16:30-0500 Body weight 87.54 kg Mona Morin Other [facility] Other 09-28-2022 16:30-0500 Diastolic blood pressure 79 mm[Hg] Mona Morin [facility] Other 09-28-2022 16:30-0500 Respiratory rate 18 /min Mona Morin [facility] Other 09-28-2022 16:30-0500 SaO2% (BldA) [Mass fraction] 98 % Mona Morin [facility] Other 09-28-2022 16:30-0500 Systolic blood pressure 130 mm[Hg] Mona Morin [facility] Other 07-14-2022 15:00-0400 Body height 157.48 cm Mona Morin [facility] Other 07-14-2022 15:00-0400 Body mass index (BMI) [Ratio] 35.66 kg/m2 Mona Yeungault [facility] Other 07-14-2022 15:00-0400 Body weight 88.45 kg Mona Yeungault Other [facility] Other 07-14-2022 15:00-0400 Diastolic blood pressure 89 mm[Hg] Mona Shane Other [facility] Other 07-14-2022 15:00-0400 Respiratory rate 18 /min Mona Morin [facility] Other 07-14-2022 15:00-0400 SaO2% (BldA) [Mass fraction] 98 % Mona Morin [facility] Other 07-14-2022 15:00-0400 Systolic blood pressure 145 mm[Hg] Mona Morin [facility] Other 06-30-2022 12:00-0400 Body height 157.48 cm Mona Morin [facility] Other 06-30-2022 12:00-0400 Body mass index (BMI) [Ratio] 35.48 kg/m2 Mona Morin [facility] Other 06-30-2022 12:00-0400 Body temperature 97.7 [degF] Mona Morin [facility] Other 06-30-2022 12:00-0400 Body weight 88 kg Mona Morin [facility] Other 06-30-2022 12:00-0400 Diastolic blood pressure 87 mm[Hg] Mona Morin [facility] Other 06-30-2022 12:00-0400 Respiratory rate 18 /min Mona Morin [facility] Other 06-30-2022 12:00-0400 SaO2% (BldA) [Mass fraction] 97 % Mona Morin [facility] Other 06-30-2022 12:00-0400 Systolic blood pressure 136 mm[Hg] Mona Morin [facility] Other 02-03-2022 11:00-0400 Body height 157.48 cm Mona Morin [facility] Other 02-03-2022 11:00-0400 Body mass index (BMI) [Ratio] 35.84 kg/m2 Mona Morin [facility] Other 02-03-2022 11:00-0400 Body temperature 98.2 [degF] Mona Yeungault [facility] Other 02-03-2022 11:00-0400 Body weight 88.91 kg Mona Morin [facility] Other 02-03-2022 11:00-0400 Diastolic blood pressure 96 mm[Hg] Mona Yeungault [facility] Other 02-03-2022 11:00-0400 Respiratory rate 18 /min Mona Morin [facility] Other 02-03-2022 11:00-0400 SaO2% (BldA) [Mass fraction] 99 % Mona Yeungault [facility] Other 02-03-2022 11:00-0400 Systolic blood pressure 157 mm[Hg] Mona Yeungault Other [facility] Other 08-31-2021 10:00-0500 Body height 157.48 cm Kaylie Ginty Other [facility] Other 08-31-2021 10:00-0500 Body mass index (BMI) [Ratio] 35.66 kg/m2 Kaylie Ginty [facility] Other 08-31-2021 10:00-0500 Body temperature 98.7 [degF] Kaylie Ginty Other [facility] Other 08-31-2021 10:00-0500 Body weight 88.45 kg Kaylie Ginty Other [facility] Other 08-31-2021 10:00-0500 Respiratory rate 18 /min Kaylie Ginty [facility] Other 08-31-2021 10:00-0500 SaO2% (BldA) [Mass fraction] 95 % Akylie Ginty Other [facility] Other Encounters Encounter Date Encounter Type Care Provider Facility Start: 11-04-2023 End: 11-04-[address] [facility] Start: 10-26-2023 End: 10-26-2023 ambulatory ELSI AICHHOLZ Not Available Start: 09-13-2023 End: 09-13-2023 ambulatory ELSI AICHHOLZ Not Available Start: 05-03-2023 End: 05-03-2023 ambulatory Priyanka Jonse Other [facility] Other Start: 05-03-2023 Office outpatient visit 15 minutes Priyanka Jones [facility] Start: 01-22-2023 End: 01-23-2023 ambulatory MONA MORIN Facility:[facility] Start: 11-23-2022 End: 11-23-2022 ambulatory Mona Morin [facility] Other Start: 11-23-2022 Telephone encounter Mona Palmerl t [facility] [employer] [facility] Start: 11-20-2022 End: 11-20-2022 ambulatory Mona Morin [facility] Other Start: 11-20-2022 Encounter by Graematter Mona Morin [facility] Start: 11-17-2022 End: 11-18-2022 ambulatory MONA MORIN [employer] Other Start: 11-17-2022 Office outpatient visit 15 minutes Monalawanda Morin [facility] Start: 10-06-2022 End: 10-06-2022 ambulatory Mona Morin [facility] Other Start: 10-06-2022 Telephone encounter Mona Palmerl t [facility] Start: 09-29-2022 End: 09-29-2022 ambulatory PHYSICIAN NO [facility] Work Phone: Start: 09-29-2022 End: 09-29-2022 Departed Referred PHYSICIAN NO [facility] [place] Work Phone: Start: 09-28-2022 End: 09-28-2022 ambulatory Mona Morin [facility] Other Start: 09-28-2022 Office outpatient visit 15 minutes Mona Morin [facility] Start: 09-14-2022 End: 09-14-2022 ambulatory Mona Morin [facility] Other Start: 09-14-2022 Telephone encounter Mona Breaul t [facility] Start: 07-14-2022 End: 07-14-2022 ambulatory Monalawanda Morin Other [facility] Other Start: 07-14-2022 Office outpatient visit 15 minutes Monalawanda Morin [facility] Start: 06-30-2022 End: 06-30-2022 ambulatory Monalawanda Morin [facility] Other Start: 06-30-2022 Office outpatient visit 15 minutes Monalawanda Morin [facility] Start: 04-02-2022 End: 04-02-2022 ambulatory Monanara Morin [facility] Other Start: 04-02-2022 Telephone encounter Mona Breaul t [facility] Start: 03-31-2022 Telephone encounter Mona Breaul t [facility] Start: 03-31-2022 End: 04-01-2022 ambulatory MONALAWANDA MORIN [employer] Other Start: 02-03-2022 End: 02-03-2022 ambulatory Monalawanda Morin [facility] Other Start: 02-03-2022 Office outpatient visit 15 minutes Monalawanda Morin [facility] Start: 12-10-2021 End: 12-10-2021 ambulatory Monanara Morin Other [facility] Other Start: 12-10-2021 Telephone encounter Mona Breaul t [facility] Start: 11-10-2021 End: 11-10-2021 ambulatory Monanara Morin Other [facility] Other Start: 11-10-2021 Telephone encounter Mona Breaul t [facility] Start: 09-03-2021 End: 09-03-2021 ambulatory Kaylie Echeverria Other [facility] Other Start: 09-03-2021 Telephone encounter Kaylie Echeverria [facility] Start: 08-31-2021 End: 08-31-2021 ambulatory Kaylie Echeverria Other [facility] Other Start: 08-31-2021 Office outpatient visit 15 minutes Kaylie Echeverria [facility] Plan of Treatment Date Care Activity Detail Author Start: 09-29-2022 Aerobic Culture Aerobic Culture [facility] Start: 09-29-2022 Anaerobic Culture Anaerobic Culture [facility] Start: 09-29-2022 Microscopic observat ion [Identifier] in Unspecified specimen by Gram stain Gram Stain [facility] Bacteria identified in Unspecified specimen by Aerobe culture [facility] Bacteria identified in Unspecified specimen by Anaerobe culture [facility] Payers Date Payer Category Payer Medicaid [id number] 2. [id number] 1975 Unknown [id number] 2.16.84 [id number] 1975 Unknown [id number] 2.16.84 [id number] 1975 Unknown [id number] 2.16.84 [id number] 1975 Unknown [id number] 2.16.84 [id number] 1975 Unknown [id number] 1975 Unknown [id number] 2.16.8 [id number] 1959 Unknown [id number] 2.1 [id number] 1959 Unknown [id number] [facility] [id number] Self-pay Self Pay [id number] Unknown [id number] 2.1 [id number] Social History Date Type Detail Facility Unknown if ever smoked [facility] Other Sex Assigned At Sex Assigned At Bir th [facility] Other Start: 1975 Sex Assigned At Female F [facility] Medical Equipment Procedure Code Equipment Code Equipment [...] fever. Patient/Parent verbalized understanding of treatment plan. [facility] Other 02-21-2023 Evaluation note* Encounter Date Diagnosis [...] weeks for the cough to go away [facility] Other 01-02-2023 Evaluation note* Encounter Date Diagnosis [...] obtained for C&S. Will call with results. [facility] Other 12-19-2022 Evaluation note* Encounter Date Diagnosis Assessment Notes Treatment Notes Treatment Clinical Notes Aug, Gastroesophageal ref lux disease, unspecified whether esophagitis present (ICD-10 - K21.9) Aug, PCOS (polycystic ovarian syndrome) (ICD-10 - E28.2) [facility] Other 10-18-2022 Evaluation note* Encounter Date Diagnosis Assessment Notes Treatment Notes Treatment Clinical Notes Jun, Fibromyalgia (ICD-10 - M79.7) Continue current treatment regimen. Printed off script to use as needed [facility] Other 10-04-2022 Evaluation note* Encounter Date Diagnosis Assessment Notes Treatment Notes Treatment Clinical Notes Jun, Primary hypertension (ICD-10 - I10) Jun, SJ (generalized anxiety disorder) (ICD-10 - F41.1) [facility] Other 07-07-2022 Evaluation note* Encounter Date Diagnosis Assessment Notes Treatment Notes Treatment Clinical Notes Mar, Right hip pain (ICD-10 - M25.551) [facility] Other 05-10-2022 Evaluation note* Encounter Date Diagnosis Assessment Notes Treatment Notes Treatment Clinical Notes January, Gastroesophageal ref lux disease, unspecified whether esophagitis present (ICD-10 - K21.9) Continue to take medication as directed. January, PCOS (polycystic ovarian syndrome) (ICD-10 - E28.2) Take medication as directed with food [facility] Other 03-16-2022 Evaluation note* Encounter Date Diagnosis Assessment Notes Treatment Notes Treatment Clinical Notes Nov, Sacral back pain (ICD-10 - M53.3) [facility] Other 02-14-2022 Evaluation note* Encounter Date Diagnosis Assessment Notes Treatment Notes Treatment Clinical Notes Oct, Gastroesophageal ref lux disease, unspecified whether esophagitis present (ICD-10 - K21.9) [facility] Other 02-14-2022 Evaluation note* Encounter Date Diagnosis Assessment Notes Treatment Notes Treatment Clinical Notes Oct, Sacral back pain (ICD-10 - M53.3) [facility] Other 2021 Evaluation note* Encounter Date Diagnosis [...] Patient care instructions given in writting by [facility] Care At Home document. [facility] Other Evaluation noteNo InformationNort [employer] Other Evaluation noteNo assessment information available [facility] Work Phone: [facility] general Narrative - Reported* Type Description Date Medical History asthma Medical History pcos Medical History Fibromyalgia Medical History Hypothyroidism - euthyroid Medical History chronic fatigue Surgical History gall bladder Surgical History vein removed in bilaterally Surgical History gastric sleeve Hospitalization History see above Hospitalization History CHILD X'S 5 [facility] Other Reason for visit NarrativeDermatology Referral Update [facility] Other Summary Purpose Family History No Family [...] content) DATE CREATED AUTHOR 03/27/2022 [facility] DATE CREATED AUTHOR AUTHOR'S ORGANIZ ATION 01/29/2023 [facility] DATE CREATED AUTHOR AUTHOR'S ORGANIZ ATION 10/27/2023 [facility] EPIC DATE CREATED AUTHOR AUTHOR'S ORGANIZ ATION 11/08/2023 [facility] Care Teams (unrecognized sec tion and [...] BE BASED ON THE PRIMARY CLINICAL RECORDS. [facility]. provides no warranty or guarantee of the accuracy or completeness of information in this document.
== END 2023-12-09 09:12 | disposition home or self-care (01) ==
LOC: VC 09:11
PROVIDERS: PCP Radiology Diagnostic Radiology; Visit Provider Radiology Diagnostic Radiology
DX: I80.02 Phlebitis and thrombophlebitis of superficial vessels of left lower extremity (principal)
CPT/HCPCS: 93971; G0463

== ENCOUNTER 2023-12-20 09:25 | Outpatient (OUT) | payer BC, MEDICAID, SELFPAY ==
[2023-12-20] MEDS: LIDOCAINE HCL 1% 100 MG/10 ML MDV INJ (09:26)
[2023-12-20] MEDS: 0.9 % SODIUM CHLORIDE 500 ML, LIDOCAINE HCL 20 ML, SODIUM BICARBONATE 10 MEQ INJ (09:26)
--- NOTE | 2023-12-20 09:26 | VEIN_ITS ---
[address] [address] Patient Name: JONNATHAN SEPULVEDA MRN: [id number] date: 1975 Sex: F Assigned Patient Location: Current Patient Location: Accession/Order Number: [id number] Exam Date: 12/20/2023 09:27 Report Date: 12/20/2023 10:48 At the request of: TRE VALDOVINOS Procedure: VC Endovenous Ablation 1VeinRT EXAMINATION: VC Endovenous Ablation 1Vein right small saphenous vein HISTORY: I83.813 Bilateral painful varicose veins COMPARISON: No relevant comparison available. TECHNIQUE: The risks and benefits of the procedure had been previously discussed, and were rediscussed at length. Informed written consent was obtained. Leslie Denis and Garrett Arellano assisted. Time out procedure was performed. The right lower extremity was prepared and draped in the usual sterile fashion with the patient in a prone position. Duplex ultrasound probe was draped in a sterile cover, sterile transmission gel was used. Venous mapping was performed with the areas of dilation and large tributaries marked. The total length was 21 cm from the entry mid to distal calf to 3 cm below the saphenofemoral junction. The diameter of the small saphenous vein ranged from 4-6 mm. A 30 gauge needle and 1% buffered lidocaine was used to anesthetize the entry site. A 4 mm incision was made with a scalpel and the saphenous vein was entered percutaneously under direct ultrasound guidance with a micropuncture set, successful access was maintained distally however the wire could not be successfully advanced and access was obtained approximately 3 cm proximal to the initial insertion site. A micro-guide wire was inserted and the needle removed. A micro-set including a dilator was inserted over the microwire and the needle and dilator were removed. A 0.018 guide wire was inserted through the micro-set and threaded through the saphenous vein. The dilator was removed and an introducer sheath was inserted over the wire. The dilator and wire were removed and the 600 micron fiber was introduced and placed and positioned so that it extended beyond the sheath. Final position of the fiber was determined by ultrasound guidance and duplex imaging. Tumescent anesthetic was delivered by ultrasound guidance. 150 cc of fluid was delivered along the entire course of the saphenous vein. The solution consisted of 1000 cc of normal saline with 40 mL of 1% lidocaine and 20 mL of sodium bicarbonate. A final positioning check was made. The energy source was turned on by means of the foot pedal and the fiber and sheath were withdrawn. The total number of Joules delivered was 996. The laser was active for 124 seconds under continuous pulse, average laser use of 8 J. Laser start time 10:17 AM 12/20/2023 . Laser stop time 10:19 AM 12/20/2023 . A duplex ultrasound revealed compressibility and flow at the saphenofemoral junction immediately after the procedure. Hemostasis at the access site was achieved. The skin incision of the saphenous vein was closed with a 4 x 4. A compression stocking was applied. Postop instructions were given. A follow up appointment was recommended and scheduled. The patient tolerated the procedure well and was discharged in good condition . VEIN/VC Endovenous Ablation 1VeinRT IMPRESSION: Technically successful endovenous laser ablation of the right small saphenous vein Electronically authenticated by: TRE VALDOVINOS Date: 12/20/2023 10:48
--- OUTSIDE RECORDS SUMMARY | 2023-12-20 09:29 | XMS_ITS | CCD ---
Author Organization [facility] Care Team Providers Care Hand Sprayer Name Role Phone Kaylie Echeverria Unavailable Mona Morin Unavailable NO FAMILY, PHYSICIAN Primary Care Provider Missyva CHRISTIANO Iqbal Attending Provider MONA MORIN Primary Care Unavailable MISC, DR ELIAS Attending Unavailable MISC, DR ELIAS Admitting Unavailable AICHHOLShannan, MARKETING SALES CONSULTANT ELSI Consulting Unavailable MONA MORIN Consulting Unavailable MONA MORIN Primary Care Unavailable MONA MORIN Admitting Unavailable MONA MORIN Attending Unavailable MIKEL, MONA Primary Care Unavailable MIKEL, MONA Admitting Unavailable MIKEL, MONA Attending Unavailable MONA MORIN Consulting Unavailable Priyanka Jones Unavailable ELSI SUAREZ Attending Unavailable ELSI SUAREZ Attending Unavailable TD BERUMEN Attending Unavailable MONA MORIN Referring Unavailable MIKEL MONA Primary Care Unavailable Allergies Allergy Classification Reported Allergen(s) Allergy Type Date of Onset Reaction(s) Facility (5 sources) Cephalexin Drug Allergy rash [facility] Other (12 sources) Cephalexin Drug Allergy rash [facility] Other (1 source) Sulfamethoxazole / Trimethoprim Drug Allergy 3 [facility] Repository Medications Current Medications Medication Drug Class(es) Dates Sig (Normalized) Sig (Original) [id number] 200 actuat albuterol 0.09 mg/actuat metered dose [...] oral solution (2 sources) alpha-Adrenergic Agonist, Uncompetitive R-gywarv-D-aspartate Receptor Antagonist, Sigma-1 Agonist Start: take 10 [...] Orally Once a day for 5 day(s) 09 Dec, 2021 Active Ketorolac (13 sources) Nonsteroidal Anti-inflammatory Drug, [...] pyogenes Org specific cx Ql (Throat) Negative [facility] Other Quick Strep [facility] Other INSULINon 01-26-2023 Insulin 21.3 uIU/mL Normal 2.6-24.9 [facility] Comment on above: Performed By: #### I NSULIN #### [facility] [address] [place] [address] Dr. Yvan aMnzano CORTISOLon 01-23-2023 Cortisol 11.2 ug/dL Normal 6.2-19.4 [facility] Comment on above: Result Comment: [place] Note: The reference interval and flagging for this test is for an AM collection. If this is a PM collection please use: Cortisol PM: 2.3-11.9 [facility] also offers: [id number]: Cortisol- [place] 850100: Cortisol- PM Performed By: #### C BC #### [facility] [address] [place] [address] Dr. Yvan Manzano CBC AUTO DIFFon 01-22-2023 BASO # 0.1 103/ul Normal 0.0-0.1 [facility] Comment on above: Performed By: #### C BC #### [facility] [address] [place] [address] Dr. Yvan Manzano Basophils/100 WBC (Bld) 0.9 % Normal 0.2-2.0 [facility] Comment on above: Performed By: #### C BC #### [facility] [address] [place] [address] Dr. Yvan Manzano EO # 0.3 103/ul Normal 0.0-0.7 [facility] Comment on above: Performed By: #### C BC #### [facility] [address] [place] [address] Dr. Yvan Manzano Eosinophils/100 WBC (Bld) 5.7 % Normal 0.9-7.0 [facility] Comment on above: Performed By: #### C BC #### [facility] [address] [place] [address] Dr. Yvan Manzano Erythrocyte distribution width (RBC) [Ratio] 14.6 % Normal 11.0-15.0 [facility] Comment on above: Performed By: #### C BC #### [facility] [address] [place] [address] Dr. Yvan Manzano Hematocrit (Bld) [Volume fraction] 36.8 % Normal 36.0-48.0 [facility] Comment on above: Performed By: #### C BC #### [facility] [address] [place] [address] Dr. Yvan Manzano Hemoglobin (Bld) [Mass/Vol] 11.4 g/dL Critically low 12.0-16.0 [facility] Comment on above: Performed By: #### C BC #### [facility] [address] [place] [address] Dr. Yvan Manzano IG # 0.02 10e3/ul Normal 0.00-0.03 [facility] Comment on above: Performed By: #### C BC #### [facility] [address] [place] [address] Dr. Yvan Manzano IG % 0.3 % Normal 0.0-0.5 [facility] Comment on above: Performed By: #### C BC #### [facility] [address] [place] [address] Dr. Yvan Manzano LYMPH # 1.5 103/ul Normal 1.2-3.8 [facility] Comment on above: Performed By: #### C BC #### [facility] [address] [place] [address] Dr. Yvan Manzano Lymphocytes/100 WBC (Bld) 25.3 % Normal 20.5-60.0 [facility] Comment on above: Performed By: #### C BC #### [facility] [address] [place] [address] Dr. Yvan Manzano MANUAL DIFF REQ NO Normal [facility] Comment on above: Performed By: #### C BC #### [facility] [address] [place] [address] Dr. Yvan Manzano MCH (RBC) [Entitic mass] 25.2 pg Critically low 26.7-34.0 [facility] Comment on above: Performed By: #### C BC #### [facility] [address] [place] [address] Dr. Yvan Manzano MCHC (RBC) [Mass/Vol] 31.0 g/dL Normal 29.9-35.2 [facility] Comment on above: Performed By: #### C BC #### [facility] [address] [address] [address] Yvan Manzano MCV (RBC) [Entitic vol] 81.4 fL Normal 81.0-99.0 [facility] Comment on above: Performed By: #### C BC #### [facility] [address] [address] [address] Yvan Manzano MONO # 0.4 103/ul Normal 0.3-0.8 [facility] Comment on above: Performed By: #### C BC #### [facility] [address] [place] [address] Dr. Yvan Manzano Monocytes/100 WBC (Bld) 7.7 % Normal 1.7-12.0 [facility] [place] Comment on above: Performed By: #### C BC #### [facility] [address] [place] [address] Dr. Yvan Manzano NEUT # 3.5 103/ul Normal 1.4-6.5 [facility] Comment on above: Performed By: #### C BC #### [facility] [address] [place] [address] Dr. Yvan Manzano Neutrophils/100 WBC (Bld) 60.1 % Normal 43.0-75.0 [facility] Comment on above: Performed By: #### C BC #### [facility] [address] [place] [address] Dr. Yvan Manzano Platelet mean volume (Bld) [Entitic vol] 8.8 fL Critically low 9.5-13.5 [facility] Comment on above: Performed By: #### C BC #### [facility] [address] [place] [address] Dr. Yvan Manzano PLT 347 103/ul Normal 150-450 [facility] Comment on above: Performed By: #### C BC #### [facility] [address] [place] [address] Dr. Yvan Manzano RBC 4.52 106/ul Normal 4.20-5.40 [facility] Comment on above: Performed By: #### C BC #### [facility] [address] [place] [address] Dr. Yvan Manzano WBC 5.7 103/ul Normal 4.0-11.0 [facility] Comment on above: Performed By: #### C BC #### [facility] [address] [place] [address] Dr. Yvan Manzano FREE T4on 01-22-2023 Free T4 [Mass/Vol] 0.84 ng/dL Normal 0.76-1.46 [facility] Comment on above: Performed By: #### F T4 #### [facility] [address] [place] [address] Dr. Yvan Manzano LIPID PROFILEon 01-22-2023 CHOL-HDL RATIO NORM SEE BELOW Normal [facility] Comment on above: Result Comment: 3.3 - 4.4 LOW RISK 4.4 - 7.1 AVERAGE RISK 7.1 - 11.0 MODERATE RISK >11.0 HIGH RISK Performed By: #### T SH, LIPID #### [facility] [address] [place] [address] Dr. Yvan Manzano Cholesterol [Mass/Vol] 264 mg/dL Critically high <=200 [facility] Comment on above: Performed By: #### T SH, LIPID #### [facility] [address] [place] [address] Dr. Yvan Manzano Cholesterol in HDL [Mass/Vol] 52 mg/dL Normal 40-60 [facility] Comment on above: Performed By: #### T SH, LIPID #### [facility] [address] [place] [address] Dr. Yvan Manzano Cholesterol in LDL [Mass/Vol] 173.6 mg/dL Normal [facility] Comment on above: Performed By: #### T SH, LIPID #### [facility] [address] [place] [address] Dr. Yvan Manzano Cholesterol.total/Ch olesterol in HDL [Mass ratio] 5.1 {ratio} Normal [facility] Comment on above: Performed By: #### T SH, LIPID #### [facility] [address] [place] [address] Dr. Yvan Manzano HDL NORMAL > or = 60 mg/dl - LOW CARDIOVASCULAR RISK <40 mg/dl - HIGH CARDIOVASCULAR RISK Normal [facility] Comment on above: Performed By: #### T SH, LIPID #### [facility] [address] [address] [address] Yvan Manzano LDL CALC NORMAL SEE BELOW Normal [facility] Comment on above: Result Comment: <100 mg/dl OPTIMAL 100 - 129 mg/dl NEAR OR ABOVE OPTIMAL 130 - 159 mg/dl BORDERLINE HIGH 160 - 189 mg/dl HIGH >190 mg/dl VERY HIGH Performed By: #### T SH, LIPID #### [facility] [address] [address] [address] Yvan Manzano Triglyceride [Mass/Vol] 192 mg/dL Critically high <=150 [facility] Comment on above: Performed By: #### T SH, LIPID #### [facility] [address] [place] [address] Dr. Yvan Manzano VLDL CALC 38.4 mg/dL Normal [facility] Comment on above: Performed By: #### T SH, LIPID #### [facility] [address] [place] [address] Dr. Yvan Manzano TSHon 01-22-2023 TSH 5.749 uIU/mL Critically high 0.358-3.740 [facility] Comment on above: Performed By: #### T SH, LIPID #### [facility] [address] [place] [address] Dr. Yvan Manzano GLYCOHEMOGLOBIN A1Con 2022 ADA RECOMMENDATION SEE BELOW Normal [facility] Comment on above: Result Comment: ADA RECOMMENDED LIMIT 4.0 - 6.0 ADA THERAPEUTIC TARGET < 7.0 ACTION SUGGESTED > 7.0 Performed By: #### A 1C #### [facility] [address] [address] [address] Yvan Manzano Glucose [Mass/Vol] 137 mg/dL Normal [facility] Comment on above: Performed By: #### A 1C #### [facility] [address] [place] [address] Dr. Yvan Manzano HbA1c (Bld) [Mass fraction] 6.4 % Critically high 4.5-6.2 [facility] Comment on above: Performed By: #### A 1C #### [facility] [address] [place] [address] Dr. Yvan Manzano PROF 14(COMP METB)on 023 Albumin [Mass/Vol] 3.4 g/dL Normal 3.4-5.0 [facility] Comment on above: Performed By: #### C MP #### [facility] [address] [place] [address] Dr. Yvan Manzano Albumin/Globulin [Mass ratio] 0.9 {ratio} Normal [facility] Comment on above: Performed By: #### C MP #### [facility] [address] [place] [address] Dr. Yvan Manzano ALP [Catalytic activity/Vol] 74 U/L Normal 46-116 [facility] Comment on above: Performed By: #### C MP #### [facility] [address] [place] [address] Dr. Yvan Manzano ALT [Catalytic activity/Vol] 25 U/L Normal 14-59 [facility] Comment on above: Performed By: #### C MP #### [facility] [address] [place] [address] Dr. Yvan Manzano Anion gap [Moles/Vol] 9.4 mmol/L Normal [facility] Comment on above: Performed By: #### C MP #### [facility] [address] [place] [address] Dr. Yvan Manzano AST [Catalytic activity/Vol] 17 U/L Normal 15-37 [facility] Comment on above: Performed By: #### C MP #### [facility] [address] [place] [address] Dr. Yvan Manzano Bilirubin [Mass/Vol] 0.1 mg/dL Critically low 0.2-1.0 [facility] Comment on above: Performed By: #### C MP #### [facility] [address] [place] [address] Dr. Yvan Manzano Calcium [Mass/Vol] 9.2 mg/dL Normal 8.5-10.1 [facility] Comment on above: Performed By: #### C MP #### [facility] [address] [address] [address] Yvan Manzano Chloride [Moles/Vol] 101 mmol/L Normal 98-107 [facility] Comment on above: Performed By: #### C MP #### [facility] [address] [address] [address] Yvan Manzano CO2 [Moles/Vol] 30.4 mmol/L Normal 21.0-32.0 [facility] Comment on above: Performed By: #### C MP #### [facility] [address] [address] [address] Yvan Manzano Creatinine [Mass/Vol] 0.71 mg/dL Normal 0.55-1.02 [facility] Comment on above: Performed By: #### C MP #### [facility] [address] [place] [address] Dr. Yvan Manzano EGFR-AF VIETNAMESE >60 Normal >=60 [facility] Comment on above: Performed By: #### C MP #### [facility] [address] [address] [address] Yvan Manzano EGFR-NON AF VIETNAMESE >60 Normal >=60 [facility] Comment on above: Performed By: #### C MP #### [facility] [address] [address] [address] Yvan Manzano Globulin (S) [Mass/Vol] 4.0 g/dL Normal [facility] Comment on above: Performed By: #### C MP #### [facility] [address] [address] [address] Yvan Manzano Glucose [Mass/Vol] 138 mg/dL Critically high 74-106 [facility] Comment on above: Performed By: #### C MP #### [facility] [address] [address] [address] Yvan Manzano Potassium [Moles/Vol] 3.8 mmol/L Normal 3.5-5.1 [facility] Comment on above: Performed By: #### C MP #### [facility] [address] [address] [address] Yvan Manzano Protein [Mass/Vol] 7.4 g/dL Normal 6.4-8.2 [facility] Comment on above: Performed By: #### C MP #### [facility] [address] [address] [address] Yvan Manzano Sodium [Moles/Vol] 137 mmol/L Normal 136-145 [facility] Comment on above: Performed By: #### C MP #### [facility] [address] [place] [address] Dr. Yvan Manzano Urea nitrogen [Mass/Vol] 13.0 mg/dL Normal 7.0-18.0 [facility] Comment on above: Performed By: #### C MP #### [facility] [address] [place] [address] Dr. Yvan Manzano Urea nitrogen/Creatinine [Mass ratio] 18.3 mg/mg Normal [facility] Comment on above: Performed By: #### C MP #### [facility] [address] [place] [address] Dr. Yvan Manzano LIPID PROFILEon 03-31-2022 CHOL-HDL RATIO NORM SEE BELOW Normal [facility] Comment on above: Result Comment: 3.3 - 4.4 LOW RISK 4.4 - 7.1 AVERAGE RISK 7.1 - 11.0 MODERATE RISK >11.0 HIGH RISK Performed By: #### C MP, LIPID #### [facility] [address] [place] [address] Dr. Yvan Manzano Cholesterol [Mass/Vol] 229 mg/dL Critically high <=200 [facility] Comment on above: Performed By: #### C MP, LIPID #### [facility] [address] [address] [address] Yvan Manzano Cholesterol in HDL [Mass/Vol] 51 mg/dL Normal 40-60 [facility] Comment on above: Performed By: #### C MP, LIPID #### [facility] [address] [address] [address] Yvan Manzano Cholesterol in LDL [Mass/Vol] 150.4 mg/dL Normal [facility] Comment on above: Performed By: #### C MP, LIPID #### [facility] [address] [address] [address] Yvan Manzano Cholesterol.total/Ch olesterol in HDL [Mass ratio] 4.5 {ratio} Normal [facility] Comment on above: Performed By: #### C MP, LIPID #### [facility] [address] [address] [address] Yvan Manzano HDL NORMAL > or = 60 mg/dl - LOW CARDIOVASCULAR RISK <40 mg/dl - HIGH CARDIOVASCULAR RISK Normal [facility] Comment on above: Performed By: #### C MP, LIPID #### [facility] [address] [address] [address] Yvan Manzano LDL CALC NORMAL SEE BELOW Normal [facility] Comment on above: Result Comment: <100 mg/dl OPTIMAL 100 - 129 mg/dl NEAR OR ABOVE OPTIMAL 130 - 159 mg/dl BORDERLINE HIGH 160 - 189 mg/dl HIGH >190 mg/dl VERY HIGH Performed By: #### C MP, LIPID #### [facility] [address] [place] [address] Dr. Yvan Manzano Triglyceride [Mass/Vol] 138 mg/dL Normal <=150 [facility] Comment on above: Performed By: #### C MP, LIPID #### [facility] [address] [place] [address] Dr. Yvan Manzano VLDL CALC 27.6 mg/dL Normal [facility] Comment on above: Performed By: #### C MP, LIPID #### [facility] [address] [address] [address] Yvan Manzano MICROALB CREAT RATIO RANDOMo n 03-31-2022 mALB 1.4 mg/L Normal <=30.0 [facility] Comment on above: Performed By: #### M CRR #### [facility] [address] [place] [address] Dr. Yvan Manzano MALB CR RATIO 6.0 mg/g Normal 0.0-29.9 [facility] Comment on above: Performed By: #### M CRR #### [facility] [address] [place] [address] Dr. Yvan Manzano MALB CR RATIO RANGE SEE BELOW Normal [facility] Comment on above: Result Comment: NO M ICROALBUMINURIA 0-29 MG/G CLINICAL MICROALBUMINURIA 30-300 MG/G MACROALBUMINURIA >300 MG/G Performed By: #### M CRR #### [facility] [address] [address] [address] Yvan Manzano URINE CREAT 232.88 mg/dL Normal 20.00-300.00 [facility] Comment on above: Performed By: #### M CRR #### [facility] [address] [address] [address] Yvan Manzano PROF 14(COMP METB)on 022 Albumin [Mass/Vol] 3.6 g/dL Normal 3.4-5.0 [facility] Comment on above: Performed By: #### C MP, LIPID #### [facility] [address] [place] [address] Dr. Yvan Manzano Albumin/Globulin [Mass ratio] 0.9 {ratio} Normal [facility] Comment on above: Performed By: #### C MP, LIPID #### [facility] [address] [place] [address] Dr. Yvan Manzano ALP [Catalytic activity/Vol] 63 U/L Normal 46-116 [facility] Comment on above: Performed By: #### C MP, LIPID #### [facility] [address] [place] [address] Dr. Yvan Manzano ALT [Catalytic activity/Vol] 33 U/L Normal 14-59 [facility] Comment on above: Performed By: #### C MP, LIPID #### [facility] [address] [place] [address] Dr. Yvan Manzano Anion gap [Moles/Vol] 11.7 mmol/L Normal [facility] Comment on above: Performed By: #### C MP, LIPID #### [facility] [address] [place] [address] Dr. Yvan Manzano AST [Catalytic activity/Vol] 23 U/L Normal 15-37 [facility] Comment on above: Performed By: #### C MP, LIPID #### [facility] [address] [address] [address] Yvan Manzano Bilirubin [Mass/Vol] 0.2 mg/dL Normal 0.2-1.0 [facility] Comment on above: Performed By: #### C MP, LIPID #### [facility] [address] [address] [address] Yvan Manzano Calcium [Mass/Vol] 9.5 mg/dL Normal 8.5-10.1 [facility] Comment on above: Performed By: #### C MP, LIPID #### [facility] [address] [address] [address] Yvan Manzano Chloride [Moles/Vol] 102 mmol/L Normal 98-107 [facility] Comment on above: Performed By: #### C MP, LIPID #### [facility] [address] [place] [address] Dr. Yvan Manzano CO2 [Moles/Vol] 28.0 mmol/L Normal 21.0-32.0 [facility] Comment on above: Performed By: #### C MP, LIPID #### [facility] [address] [place] [address] Dr. Yvan Manzano Creatinine [Mass/Vol] 0.71 mg/dL Normal 0.55-1.02 [facility] Comment on above: Performed By: #### C MP, LIPID #### [facility] [address] [place] [address] Dr. Yvan Manzano EGFR-AF VIETNAMESE >60 Normal >=[address] [facility] Comment on above: Performed By: #### C MP, LIPID #### [facility] [address] [place] [address] Dr. Yvan Manzano EGFR-NON AF VIETNAMESE >60 Normal >=60 [facility] Comment on above: Performed By: #### C MP, LIPID #### [facility] [address] [place] [address] Dr. Yvan Manzano Globulin (S) [Mass/Vol] 4.0 g/dL Normal [facility] Comment on above: Performed By: #### C MP, LIPID #### [facility] [address] [address] [address] Yvan Manzano Glucose [Mass/Vol] 87 mg/dL Normal 74-106 [facility] Comment on above: Performed By: #### C MP, LIPID #### [facility] [address] [address] [address] Yvan Manzano Potassium [Moles/Vol] 3.7 mmol/L Normal 3.5-5.1 [facility] Comment on above: Performed By: #### C MP, LIPID #### [facility] [address] [address] [address] Yvan Manzano Protein [Mass/Vol] 7.6 g/dL Normal 6.4-8.2 [facility] Comment on above: Performed By: #### C MP, LIPID #### [facility] [address] [address] [address] Yvan Manzano Sodium [Moles/Vol] 138 mmol/L Normal 136-145 [facility] Comment on above: Performed By: #### C MP, LIPID #### [facility] [address] [address] [address] Yvan Manzano Urea nitrogen [Mass/Vol] 14.0 mg/dL Normal 7.0-18.0 [facility] Comment on above: Performed By: #### C MP, LIPID #### [facility] [address] [address] [address] Yvan Manzano Urea nitrogen/Creatinine [Mass ratio] 19.7 mg/mg Normal [facility] Comment on above: Performed By: #### C MP, LIPID #### [facility] [address] [address] [address] Yvan Manzano XR hip RT min 2V(w/wo pelvis )*on 03-26-2022 XR hip RT min 2V(w/wo pelvis)* [facility] [place] [address] XRay Report Signed Patient: Tatiana Sepulveda MR#: [id number] : 1975 Acct:[id number] Age/Sex: 46 / F ADM Date: 03/26/22 Loc: XDCLY Room: Type: REG CLI Attending Dr: Mona ALVARADO Copies to: [...] Michael Harper M.D.03/26/2022 3:38 PM Dictation Location: [place] [address] Transcribed By: [facility] 03/26/22 1538 Dictated By: Michael Harper DO 03/26/22 1534 Signed By: 03/26/[address] [facility] XR sacrum coccyx min 2Von XR sacrum coccyx min 2V [facility] [place] [address] XRay Report Signed Patient: Tatiana Sepulveda MR#: [id number] : 1975 Acct:[id number] Age/Sex: 45 / F ADM Date: 09/29/21 Loc: XDUCLY Room: Type: REG CLI Attending Dr: Mona ALVARADO Ordering Provider: MONA [...] Laron Villegas M.D.09/29/2021 4:16 PM Dictation Location: [place] [address] Transcribed By: [facility] 09/29/21 161 Dictated By: Laron Villegas II, MD 09/29/21 161 Signed By: 09/29/[address] [facility] COVID Quick Testingon 2020 Result Negative [facility] Other Vital Signs Date Time Vital Sign Value Performing Clinician Facility 05-03-2023 09:05-0400 Body height 157.48 cm Priyanka Jones Other [facility] Other 05-03-2023 09:05-0400 Body mass index (BMI) [Ratio] 35.02 kg/m2 Priyanka Jones Other [facility] Other 05-03-2023 09:05-0400 Body temperature 97.5 [degF] Priyanka Jones Other [facility] Other 05-03-2023 09:05-0400 Body weight 86.86 kg Priyanka Jones Other [facility] Other 05-03-2023 09:05-0400 Diastolic blood pressure 76 mm[Hg] Priyanka Jones Other [facility] Other 05-03-2023 09:05-0400 Respiratory rate 18 /min Priyanka Jones Other [facility] Other 05-03-2023 09:05-0400 SaO2% (BldA) [Mass fraction] 100 % Priyanka Jones Other [facility] Other 05-03-2023 09:05-0400 Systolic blood pressure 117 mm[Hg] Priyanka Jones Other [facility] Other 11-17-2022 11:30-0500 Body height 157.48 cm Mona Morin Other [facility] Other 11-17-2022 11:30-0500 Body mass index (BMI) [Ratio] 35.3 kg/m2 Mona Yeungault Other [facility] Other 11-17-2022 11:30-0500 Body temperature 98.7 [degF] Mona Yeungault Other [facility] Other 11-17-2022 11:30-0500 Body weight 87.54 kg Mona Morin Other [facility] Other 11-17-2022 11:30-0500 Respiratory rate 18 /min Mona Morin Other [facility] Other 11-17-2022 11:30-0500 SaO2% (BldA) [Mass fraction] 98 % Mona Morin Other [facility] Other 09-28-2022 16:30-0500 Body height 157.48 cm Mona Yeungault Other [facility] Other 09-28-2022 16:30-0500 Body mass index (BMI) [Ratio] 35.3 kg/m2 Mona Yeungault Other [facility] Other 09-28-2022 16:30-0500 Body temperature 98 [degF] Mona Morin Other [facility] Other 09-28-2022 16:30-0500 Body weight 87.54 kg Mona Morin Other [facility] Other 09-28-2022 16:30-0500 Diastolic blood pressure 79 mm[Hg] Mona Morin Other [facility] Other 09-28-2022 16:30-0500 Respiratory rate 18 /min Mona Morin Other [facility] Other 09-28-2022 16:30-0500 SaO2% (BldA) [Mass fraction] 98 % Mona Morin Other [facility] Other 09-28-2022 16:30-0500 Systolic blood pressure 130 mm[Hg] Mona Morin Other [facility] Other 07-14-2022 15:00-0400 Body height 157.48 cm Mona Morin Other [facility] Other 07-14-2022 15:00-0400 Body mass index (BMI) [Ratio] 35.66 kg/m2 Mona Morin Other [facility] Other 07-14-2022 15:00-0400 Body weight 88.45 kg Mona Morin Other [facility] Other 07-14-2022 15:00-0400 Diastolic blood pressure 89 mm[Hg] Mona Yeungault Other [facility] Other 07-14-2022 15:00-0400 Respiratory rate 18 /min Mona Morin Other [facility] Other 07-14-2022 15:00-0400 SaO2% (BldA) [Mass fraction] 98 % Mona Yeungault Other [facility] Other 07-14-2022 15:00-0400 Systolic blood pressure 145 mm[Hg] Mona Yeungault Other [facility] Other 06-30-2022 12:00-0400 Body height 157.48 cm Mona Yeungault Other [facility] Other 06-30-2022 12:00-0400 Body mass index (BMI) [Ratio] 35.48 kg/m2 Mona Yeungault Other [facility] Other 06-30-2022 12:00-0400 Body temperature 97.7 [degF] Mona Yeungault Other [facility] Other 06-30-2022 12:00-0400 Body weight 88 kg Mona Yeungault Other [facility] Other 06-30-2022 12:00-0400 Diastolic blood pressure 87 mm[Hg] Mona Yeungault Other [facility] Other 06-30-2022 12:00-0400 Respiratory rate 18 /min Mona Yeungault Other [facility] Other 06-30-2022 12:00-0400 SaO2% (BldA) [Mass fraction] 97 % Mona Morin Other [facility] Other 06-30-2022 12:00-0400 Systolic blood pressure 136 mm[Hg] Mona Morin Other [facility] Other 02-03-2022 11:00-0400 Body height 157.48 cm Mona Morin Other [facility] Other 02-03-2022 11:00-0400 Body mass index (BMI) [Ratio] 35.84 kg/m2 Mona Morin Other [facility] Other 02-03-2022 11:00-0400 Body temperature 98.2 [degF] Mona Morin Other [facility] Other 02-03-2022 11:00-0400 Body weight 88.91 kg Mona Morin Other [facility] Other 02-03-2022 11:00-0400 Diastolic blood pressure 96 mm[Hg] Mona Morin Other [facility] Other 02-03-2022 11:00-0400 Respiratory rate 18 /min Mona Yeungault Other [facility] Other 02-03-2022 11:00-0400 SaO2% (BldA) [Mass fraction] 99 % Mona Yeungault Other [facility] Other 02-03-2022 11:00-0400 Systolic blood pressure 157 mm[Hg] Mona Yeungault Other [facility] Other 08-31-2021 10:00-0500 Body height 157.48 cm Kaylie Ginty Other [facility] Other 08-31-2021 10:00-0500 Body mass index (BMI) [Ratio] 35.66 kg/m2 Kaylie Ginty Other [facility] Other 08-31-2021 10:00-0500 Body temperature 98.7 [degF] Kaylie Ginty Other [facility] Other 08-31-2021 10:00-0500 Body weight 88.45 kg Kaylie Ginty Other [facility] Other 08-31-2021 10:00-0500 Respiratory rate 18 /min Kaylie Ginty Other [facility] Other 08-31-2021 10:00-0500 SaO2% (BldA) [Mass fraction] 95 % Kaylie Ginty Other [facility] Other Encounters Encounter Date Encounter Type Care Provider Facility Start: 11-04-2023 End: 11-04-2023 ambulatory TD Gutierrez [place] [facility] Start: 10-26-2023 End: 10-26-2023 ambulatory ELSI AICHHOLZ Not Available Start: 09-13-2023 End: 09-13-2023 ambulatory ELSI AICHHOLZ Not Available Start: 05-03-2023 End: 05-03-2023 ambulatory Priyanka Jones Other [facility] Other Start: 05-03-2023 Office outpatient visit 15 minutes Priyanka Jones [facility] Start: 01-22-2023 End: 01-23-2023 ambulatory MONA MORIN Facility: Start: 11-23-2022 End: 11-23-2022 ambulatory Mona Morin Other [facility] Other Start: 11-23-2022 Telephone encounter Monamonty Palmerl t [facility] Start: 11-20-2022 End: 11-20-2022 ambulatory Mona Morin Other [facility] Other Start: 11-20-2022 Encounter by compute r link Mona Morin [facility] Start: 11-17-2022 End: 11-18-2022 ambulatory MONA MORIN [place] [employer] Other Start: 11-17-2022 Office outpatient visit 15 minutes Monamonty Morin [facility] Start: 10-06-2022 End: 10-06-2022 ambulatory Mona Morin Other [facility] Other Start: 10-06-2022 Telephone encounter Monamonty Palmerl t [facility] Start: 09-29-2022 End: 09-29-2022 ambulatory PHYSICIAN NO [facility] Work Phone: Start: 09-29-2022 End: 09-29-2022 Departed Referred PHYSICIAN NO [facility] Work Phone: Start: 09-28-2022 End: 09-28-2022 ambulatory Mona Morin Other [facility] Other Start: 09-28-2022 Office outpatient visit 15 minutes Monamonty Morin [facility] Start: 09-14-2022 End: 09-14-2022 ambulatory Mona Morin Other [facility] Other Start: 09-14-2022 Telephone encounter Mona Breaul t [facility] Start: 07-14-2022 End: 07-14-2022 ambulatory Mona Morin Other [facility] Other Start: 07-14-2022 Office outpatient visit 15 minutes Monamonty Morin [facility] Start: 06-30-2022 End: 06-30-2022 ambulatory Monamonty Morin Other [facility] Other Start: 06-30-2022 Office outpatient visit 15 minutes Monamonty Morin [facility] Start: 04-02-2022 End: 04-02-2022 ambulatory Monamonty Morin Other [facility] Other Start: 04-02-2022 Telephone encounter Mona Breaul t [facility] Start: 03-31-2022 Telephone encounter Mona Breaul t [facility] Start: 03-31-2022 End: 04-01-2022 ambulatory MONA MORIN [place] [employer] Other Start: 02-03-2022 End: 02-03-2022 ambulatory Monamonty Morin Other [facility] Other Start: 02-03-2022 Office outpatient visit 15 minutes Monamonty Morin [facility] Start: 12-10-2021 End: 12-10-2021 ambulatory Monamonty Morin Other [facility] Other Start: 12-10-2021 Telephone encounter Mona Breaul t [facility] Start: 11-10-2021 End: 11-10-2021 ambulatory Monamonty Morin Other [facility] Other Start: 11-10-2021 Telephone encounter Mona Breaul t [facility] Start: 09-03-2021 End: 09-03-2021 ambulatory Kaylie Devoranty Other [employer] Other Start: 09-03-2021 Telephone encounter Kaylie Echeverria [facility] Start: 08-31-2021 End: 08-31-2021 ambulatory Kaylie Echeverria Other [facility] Other Start: 08-31-2021 Office outpatient visit 15 minutes Kaylie Echeverria [facility] Plan of Treatment Date Care Activity Detail Author Start: 09-29-2022 Aerobic Culture Aerobic Culture [facility] Start: 09-29-2022 Anaerobic Culture Anaerobic Culture [facility] Start: 09-29-2022 Microscopic observat ion [Identifier] in Unspecified specimen by Gram stain Gram Stain [facility] Bacteria identified in Unspecified specimen by Aerobe culture [facility] Bacteria identified in Unspecified specimen by Anaerobe culture [facility] Payers Date Payer Category Payer Medicaid [id number] 2. [id number] 1975 Unknown [id number] 2.16.84 [id number] 1975 Unknown [id number] 2.16.84 [id number] 1975 Unknown [id number] 2.16.84 [id number] 1975 Unknown [id number] 2.16.84 [id number] 1975 Unknown [id number] 2.16.840 [id number] 1975 Unknown [id number] 2.16.8 [id number] 1959 Unknown [id number] 2.1 [id number] 1958 Unknown [id number] [facility] NLM [id number] Self-pay Self Pay [id number] Unknown [id number] 2.1 [id number] Social History Date Type Detail Facility Unknown if ever smoked [facility] Other Sex Assigned At Sex Assigned At Bir th [facility] Other Start: 1975 Sex Assigned At Female F [facility] Medical Equipment Procedure Code Equipment [...] fever. Patient/Parent verbalized understanding of treatment plan. [facility] Other 02-21-2023 Evaluation note* Encounter Date Diagnosis [...] weeks for the cough to go away [facility] Other 01-02-2023 Evaluation note* Encounter Date Diagnosis [...] obtained for C&S. Will call with results. [facility] Other 12-19-2022 Evaluation note* Encounter Date Diagnosis Assessment Notes Treatment Notes Treatment Clinical Notes Aug, Gastroesophageal ref lux disease, unspecified whether esophagitis present (ICD-10 - K21.9) Aug, PCOS (polycystic ovarian syndrome) (ICD-10 - E28.2) [facility] Other 10-18-2022 Evaluation note* Encounter Date Diagnosis Assessment Notes Treatment Notes Treatment Clinical Notes Jun, Fibromyalgia (ICD-10 - M79.7) Continue current treatment regimen. Printed off script to use as needed [facility] Other 10-04-2022 Evaluation note* Encounter Date Diagnosis Assessment Notes Treatment Notes Treatment Clinical Notes Jun, Primary hypertension (ICD-10 - I10) Jun, SJ (generalized anxiety disorder) (ICD-10 - F41.1) [facility] Other 07-07-2022 Evaluation note* Encounter Date Diagnosis Assessment Notes Treatment Notes Treatment Clinical Notes Mar, Right hip pain (ICD-10 - M25.551) [facility] Other 05-10-2022 Evaluation note* Encounter Date Diagnosis Assessment Notes Treatment Notes Treatment Clinical Notes January, Gastroesophageal ref lux disease, unspecified whether esophagitis present (ICD-10 - K21.9) Continue to take medication as directed. January, PCOS (polycystic ovarian syndrome) (ICD-10 - E28.2) Take medication as directed with food [facility] Other 03-16-2022 Evaluation note* Encounter Date Diagnosis Assessment Notes Treatment Notes Treatment Clinical Notes Nov, Sacral back pain (ICD-10 - M53.3) [facility] Other 02-14-2022 Evaluation note* Encounter Date Diagnosis Assessment Notes Treatment Notes Treatment Clinical Notes Oct, Gastroesophageal ref lux disease, unspecified whether esophagitis present (ICD-10 - K21.9) [facility] Other 02-14-2022 Evaluation note* Encounter Date Diagnosis Assessment Notes Treatment Notes Treatment Clinical Notes Oct, Sacral back pain (ICD-10 - M53.3) [facility] Other 2021 Evaluation note* Encounter Date Diagnosis [...] Patient care instructions given in writting by [facility] document. [facility] Other Evaluation noteNo InformationNort PPI Other Evaluation noteNo assessment information available [facility] Work Phone: [employer] general Narrative - Reported* Type Description Date Medical History asthma Medical History pcos Medical History Fibromyalgia Medical History Hypothyroidism - euthyroid Medical History chronic fatigue Surgical History gall bladder Surgical History vein removed in bilaterally Surgical History gastric sleeve Hospitalization History see above Hospitalization History CHILD X'S 5 [facility] Other Reason for visit NarrativeDermatology Referral Update [facility] Other Summary Purpose Family History No Family [...] section and content) DATE CREATED AUTHOR 03/27/2022 [facility] DATE CREATED AUTHOR AUTHOR'S ORGANIZ ATION [facility]2023 [facility] DATE CREATED AUTHOR AUTHOR'S ORGANIZ ATION 10/27/2023 [facility] EPIC DATE CREATED AUTHOR AUTHOR'S ORGANIZ ATION 11/08/2023 [facility] Care Teams (unrecognized sec tion and [...] BE BASED ON THE PRIMARY CLINICAL RECORDS. [facility]. provides no warranty or guarantee of the accuracy or completeness of information in this document.
== END 2023-12-20 09:26 | disposition home or self-care (01) ==
LOC: VC 09:25
PROVIDERS: PCP Radiology Diagnostic Radiology; Visit Provider Radiology Diagnostic Radiology
DX: I83.813 Varicose veins of bilateral lower extremities with pain (principal)
CPT/HCPCS: 36478

== ENCOUNTER 2023-12-27 11:01 | Outpatient (OUT) | payer BC, MEDICAID, SELFPAY ==
--- NOTE | 2023-12-27 11:02 | VEIN_ITS ---
Patient Name: JONNATHAN SEPULVEDA MR#: [id number] : 1975 Exam Date: 12/27/2023 Ordering Doctor: DR TRE VALDOVINOS M.D. RADIOLOGY REPORT PROCEDURE: VC EXT VENOUS RT LMTD COMPARISON: VC EXT VENOUS RT LMTD, 11/22/2023. INDICATIONS: Phlebitis of superficial veins of right lower extremity I80.01 TECHNIQUE: Lower extremity clayton scale and Duplex Doppler evaluation of the deep venous system from the inguinal ligament through the calf veins. FINDINGS: REGION: Right lower extremity. THROMBI: Negative for DVT. Heat induced thrombus in right SSV 1.4 cm from SPJ and extends to mid/distal lower leg. COMPRESSIBILITY: Non-compressible segments. FLOW: Areas of no flow corresponding to thrombus OTHER: CONCLUSION: 1. Successful post ablation occlusion of right small saphenous vein. Dictated by: Hugo Gant M.D. on 12/27/2023 at 11:28 Approved by: Hugo Gant M.D. on 12/27/2023 at 11:40
--- NOTE | 2023-12-27 11:02 | VEIN_ITS ---
Patient Name: JONNATHAN SEPULVEDA MR#: [id number] : 1975 Exam Date: 12/27/2023 Ordering Doctor: DR TRE VALDOVINOS M.D. RADIOLOGY REPORT PROCEDURE: [facility] EST L[facility] - OFFICE VISIT FOLLOW UP [facility] PROGRESS NOTES: The patient reports improvement in leg symptoms. There has been interval reduction in varicosities. The patient has followed our recommendations to walk 20-30 minutes once or twice per day since the procedure. Physical exam demonstrates decrease in varicosities of the leg. Persistent varicosities are identified along the legs bilaterally. Review of the ultrasound performed the same day demonstrates occlusive thrombus extending throughout the treated vein(s), see separate report, consistent with a successful ablation. No thrombus extending into or beyond the saphenofemoral junction. The patient expressed a desire to proceed with treatment of right great saphenous vein and remaining incompetent varicosities. The patient was informed that treatment was a process and would require several procedures/sessions. VEIN/[facility] LMTD IMPRESSION: 1. Successful ablation of the right small saphenous vein(s). 2. Persistent varicose veins and lower extremity symptoms. PLAN: Endovenous laser ablation of right great saphenous vein. Nurse notes, history and physical were reviewed and confirmed, see attached forms. The nurse was present throughout the physical exam and consultation Dictated by: Hugo Gant M.D. on 12/27/2023 at 11:40 Approved by: Hugo Gant M.D. on 12/27/2023 at 11:41
--- OUTSIDE RECORDS SUMMARY | 2023-12-27 11:13 | XMS_ITS | CCD ---
Author Organization [facility] Care Team Providers Care Marine Equipment Engineer Name Role Phone Kaylie Echeverria Unavailable Mona Morin Unavailable NO FAMILY, PHYSICIAN Primary Care Provider CHRISTIANO Ward Attending Provider [phone] MONA MORIN Primary Care Unavailable MISC, DR ELIAS Attending Unavailable MISC, DR ELIAS Admitting Unavailable ERICK, CORN CHIP MAKER ELSI Consulting Unavailable MONA MORIN Consulting Unavailable MONA MORIN Primary Care Unavailable MONA MORIN Admitting Unavailable MONA MORIN Attending Unavailable MONA MORIN Primary Care Unavailable MIKEL, MONA Admitting Unavailable MONA MORIN Attending Unavailable MONA MORIN Consulting Unavailable Priyanka Jones Unavailable ELSI SUAREZ Attending Unavailable ELSI SUAREZ Attending Unavailable TD BERUMEN Attending Unavailable MONA MORIN Referring Unavailable MONA MORIN Primary Care Unavailable Mikel ASSOCIATE ACCOUNT DIRECTOR-BRENT, Mona Primary Care Provide r Allergies Allergy Classification Reported Allergen(s) Allergy Type Date of Onset Reaction(s) Facility (5 sources) Cephalexin Drug Allergy rash evocatal Other (12 sources) Cephalexin Drug Allergy rash evocatal Other (1 source) Sulfamethoxazole / Trimethoprim Drug Allergy 3 [facility] Medications Current Medications Medication Drug Class(es) Dates Sig (Normalized) Sig (Original) [id number] 200 actuat albuterol 0.09 mg/actuat metered dose [...] for 14 days Aug, Active amitriptyline hydrochloride 50 mg oral tablet (12 sources) Tricyclic Antidepressant Start: 05-26-2023 take 1 tablet by mouth once daily amitriptyline (ELAVIL) 50 mg tablet Indications: Fibromyalgia take 1 tablet by mouth daily AT 8PM 30 tablet 11 05/26/2023 Active take 1 tablet by mouth every twe nty-four hours amoxicillin 500 mg oral capsule (1 source) Penicillin-class Antibacterial Start: 05-03-2023 take 2 capsules by mouth every twelve hours Amoxicillin 500 MG 2 capsules Orally Twice a day for 7 days Apr, Active benzonatate 100 mg oral capsule (1 source) Non-narcotic Antitussive Start: 09-04-2021 take 1 capsule by mouth three times daily as needed Tessalon Perles 100 MG 1 capsule as needed Orally Three times a day for 7 days Aug, Active brompheniramine maleate 0.4 mg/ml / dextromethorphan hydrobromide 2 mg/ml / pseudoephedrine hydrochloride 6 mg/ml oral solution (2 sources) alpha-Adrenergic Agonist, Uncompetitive J-lkyhrm-M-aspartate Receptor Antagonist, Sigma-1 Agonist Start: 08-31-2021 take 10 mL by mouth every six hours Pseudoeph-Bromp hen-DM 30-2-10 MG/5ML 10 mL Orally every 6 hours for 5 days Aug, Active Budesonide / formoterol (1 source) Corticosteroid, beta2-Adrenergic Agonist budesonide-form oterol (SYMBICORT) 160-4.5 mcg/actuation inhaler Inhale 2 puffs as needed. 0 Active calcium citrate/vitamin D3 (CALCIUM CITRATE + D ORAL) (1 source) take 1500 ug by mouth three times daily calcium citrate/vitamin D3 (CALCIUM CITRATE + D ORAL) Take 1,500 mcg by mouth 3 (three) times a day. 0 Active Diclofenac (11 sources) Nonsteroidal Anti-inflammatory Drug Diclofenac Activ e gabapentin 300 mg oral capsule (12 sources) Anti-epileptic Agent Start: 05-26-2023 take 1 capsule by mouth once daily in the evening gabapentin (NEURONTIN) 300 mg capsule Indications: Fibromyalgia take 1 capsule by mouth once daily AT 8 PM 30 capsule 11 05/26/2023 Active take 1 capsule by mouth every tw enty-four hours Handicap placards as directed (8 sources) Start: 07-14-2022 Handicap placards as directed use as directed to 07/13/2027 as directed as directed Jun, Active levothyroxine sodium 0.05 mg oral tablet (1 source) l-Thyroxine Start: 09-13-2023 levothyroxine (SYNTHROID, LEVOTHROID) 50 MCG tablet Take 1 tablet (50 mcg total) by mouth. 0 09/13/2023 Active lisinopril 2.5 mg oral tablet (12 sources) Angiotensin Converting Enzyme Inhibitor Start: 09-13-2023 take 1 tablet by mouth in the morning lisinopriL (PRINIVIL,ZESTRIL) 2.5 mg tablet Take 1 tablet (2.5 mg total) by mouth in the morning. 0 09/13/2023 Active Start: 03-26-2022 take 1 tablet by alexandria th every twenty-four hours Lisinopril 2.5 MG 1 tablet Orally Once a day for 30 day(s) Feb, Active meloxicam 15 mg oral tablet (12 sources) Nonsteroidal Anti-inflammatory Drug Start: 05-26-2023 take 1 tablet by mouth once daily at mealtime meloxicam (MOBIC) 15 mg tablet Indications: Fibromyalgia take 1 tablet by mouth once daily with food 30 tablet 11 05/26/2023 Active Start: 03-26-2022 take 1 tablet by mouth every t wenty-four hours 24 hr metFORMIN hydrochlorid e 500 mg extended release oral tablet (12 sources) Biguanide Start: 02-03-2022 mometasone furoate 0.05 mg/actuat metered dose nasal spray (17 sources) Corticosteroid Start: 04-18-2021 take 2 spray(s) nasa l route once daily Multi Vitamin/Minerals (17 sources) Multi Vitamin/Mi nerals Orally Active omeprazole 20 mg delayed release oral capsule (18 sources) Proton Pump Inhibitor Start: 07-02-2020 take 1 capsule by mouth once daily Omeprazole 20 MG 1 capsule 30 minutes before morning meal Orally Once a day for 30 days Jun, Active One Touch Glucometer (17 sources) One Touch Glucom eter SQ use 3 times daily for 30 days Active OZEMPIC 1 mg/dose (4 mg/3 mL) pen injector (1 source) inject 1 mL by subcutaneous injection every week OZEMPIC 1 mg/dose (4 mg/3 mL) pen injector inject 1 milliliter subcutaneously ONCE A WEEK 0 Active pantoprazole 20 mg delayed release oral tablet (17 sources) Proton Pump Inhibitor Start: take 1 tablet by mouth every twenty-four hours prednisoLONE acetate 10 mg/ml ophthalmic suspension (17 sources) Corticosteroid Start: take 1 drop(s) into the eye(s) three times daily rOPINIRole 0.25 mg oral tablet (1 source) Nonergot Dopamine Agonist Start: take 1 tablet by mouth at bedtime rOPINIRole (REQUIP) 0.25 mg tablet take 1 tablet by mouth 1 to 3 hours BEFORE BEDTIME 0 10/12/2023 Active sertraline 100 mg oral tablet (18 sources) Serotonin Reuptake Inhibitor Start: take 2 tablets by mouth once daily in the morning sertraline (ZOLOFT) 100 mg tablet Indications: Major depressive disorder, recurrent episode, moderate (CMS-HCC) , Generalized anxiety disorder take 2 tablets by mouth every morning 180 tablet 3 10/05/2023 Active take 1 tablet by alexandria th every twenty-four hours Zoloft 100 MG 1 tablet Orally Once a day for 30 day(s) Active tiZANidine 4 mg oral tablet (20 sources) Central alpha-2 Adrenergic Agonist Start: 05-26-2023 take 1 tablet by mouth once daily at bedtime tiZANidine (ZANAFLEX) 4 mg tablet Indications: Fibromyalgia Take 1 tablet (4 mg total) by mouth once daily at bedtime. 30 tablet 11 05/26/2023 Active Start: 09-29-2021 take 1 tablet by mouth every e ight hours Zanaflex Active triamcinolone acetonide 5 mg [...] Translations: [Atopic dermatitis, unspecified] Chronic Anxiety disorders (13 sources) Generalized anxiety disorder; Translations: [Generalized anxiety disorder] Onset: 06-04-2017 Chronic Asthma (18 sources) Exacerbation of asthma; Translations: [Unspecified asthma with (acute) exacerbation] Onset: 01-11-2018 01-11-2018 Chronic Attention-deficit, conduct, and disruptive behavior disorders (1 source) Attention deficit hyperactivity disorder, combined type; Translations: [Attention-deficit hyperactivity disorder, combined type] Onset: 06-04-2017 06-04-2017 Chronic Chronic obstructive pulmonary disease and bronchiectasis (2 sources) Bronchitis, not specified as acute or chronic Onset: 08-31-2021 Resolved: 08-31-2021 Episodic Essential hypertension (17 sources) Essential hypertension; Translations: [Essential (primary) hypertension] Onset: 03-31-2022 Chronic Headache; including migraine (17 sources) Migraine aura without headache ; Translations: [Migraine with aura, not intractable, without status migrainosus] Chronic Malaise and fatigue (17 sources) Fatigue; Translations: [Chronic fatigue, unspecified] Chronic Mood disorders (2 sources) Major depressive disorder, recurrent, moderate; Translations: [Recurrent major depressive episodes, moderate ] Onset: 06-04-2017 06-04-2017 Chronic Nutritional deficiencies (17 sources) Vitamin [...] Translations: [HYPOGLYCEMIA UNSPECIFIED] Onset: 11-17-2022 Chronic Other endocrine disorders (1 source) Polycystic ovary syndrome; Translations: [Polycystic ovarian syndrome] Onset: 04-14-2016 01-11-2018 Chronic Other nutritional; endocrine; and metabolic disorders [...] otitis media, right ear Episodic Thyroid disorders (2 sources) Hypothyroidism, unspecified; Translations: [Hypothyroidism] Onset: 01-11-2018 01-11-2018 Chronic Past or Other Problems Problem Classification Problem Date Documented Date Episodic/Chronic Diabetes mellitus with complications (1 source) Type 2 diabetes mellitus in obese; Translations: [Type 2 diabetes mellitus with other specified complication] Onset: 08-23-2017 Resolved: 02-01-2018 02-01-2018 Chronic Diabetes or abnormal glucose tolerance complicating ; childbirth; or the puerperium (1 source) History of gestational diabetes mellitus; Translations: [Personal history of gestational diabetes] Onset: 04-14-2016 01-11-2018 Episodic Esophageal disorders (20 sources) Gastroesophageal reflux disease; Translations: [Gastro-esophageal reflux disease without esophagitis] Onset: 08-23-2017 Resolved: 02-03-2022 Chronic Immunizations and screening for infectious disease (1 source) Contact with and (suspected) exposure to other viral communicable diseases Onset: 08-31-2021 Resolved: 08-31-2021 Episodic Malaise and fatigue (2 sources) Other fatigue; Translations: [Fatigue] Onset: 08-23-2017 08-23-2017 Episodic Other non-traumatic joint disorders (1 source) Pain in right hip Onset: 04-02-2022 Resolved: 04-02-2022 Episodic Other nutritional; endocrine; and metabolic disorders (18 sources) Obese class II; Translations: [Body mass index (BMI) 35.0-35.9, adult] Onset: 08-23-2017 Resolved: 10-20-2018 10-20-2018 Chronic Other nutritional; endocrine; and metabolic disorders (1 source) Morbid obesity; Translations: [Morbid (severe) obesity due to excess calories] Onset: 01-24-2018 Resolved: 10-20-2018 10-20-2018 Chronic Residual codes; unclassified (1 source) Obstructive sleep apnea syndrome; Translations: [Obstructive sleep apnea (adult) (pediatric)] Onset: 08-23-2017 Resolved: 10-20-2018 10-20-2018 Chronic Spondylosis; intervertebral disc disorders; other back problems (2 sources) Sacrococcygeal disorders, not elsewhere classified Onset: 11-10-2021 Resolved: 12-10-2021 Episodic Results Test Name Value Interpretation Reference Range Facility [facility] 05-03-2023 S. pyogenes Org specific cx Ql (Throat) Negative evocatal Other [facility] evocatal Other INSULINon 01-26-2023 Insulin 21.3 uIU/mL Normal 2.6-24.9 [facility] Comment on above: Performed By: #### I NSULIN #### [facility] [address] [place] [address] Dr. Yvan Manzano CORTISOLon 01-23-2023 Cortisol 11.2 ug/dL Normal 6.2-19.4 [facility] Comment on above: Result Comment: [place] Note: The reference interval and flagging for this test is for an AM collection. If this is a PM collection please use: Cortisol PM: 2.3-11.9 [facility] also offers: [id number]: Cortisol- AM [id number]: Cortisol- PM Performed By: #### C BC #### [facility] [address] [place] [address] Dr. Yvan Manzano CBC AUTO DIFFon 01-22-2023 BASO # 0.1 103/ul Normal 0.0-0.1 [facility] Comment on above: Performed By: #### C BC #### [facility] [address] [place] [address] Dr. Yvan Manzano Basophils/100 WBC (Bld) 0.9 % Normal 0.2-2.0 [facility] Comment on above: Performed By: #### C BC #### [facility] [address] [place] [address] Dr. Yvan Manzano EO # 0.3 103/ul Normal 0.0-0.7 [facility] Comment on above: Performed By: #### C BC #### [facility] [address] [place] [address] Dr. Yvan Manzano Eosinophils/100 WBC (Bld) 5.7 % Normal 0.9-7.0 [facility] Comment on above: Performed By: #### C BC #### [facility] [address] [place] [address] Dr. Yvan Manzano Erythrocyte distribution width (RBC) [Ratio] 14.6 % Normal 11.0-15.0 [facility] Comment on above: Performed By: #### C BC #### [facility] [address] [place] [address] Dr. Yvan Manzano Hematocrit (Bld) [Volume fraction] 36.8 % Normal 36.0-48.0 [facility] Comment on above: Performed By: #### C BC #### [facility] [address] [place] [address] Dr. Yvan Manzano Hemoglobin (Bld) [Mass/Vol] 11.4 g/dL Critically low 12.0-16.0 [facility] Comment on above: Performed By: #### C BC #### [facility] [address] [address] [address] Yvan Manzano IG # 0.02 10e3/ul Normal 0.00-0.03 [facility] Comment on above: Performed By: #### C BC #### [facility] [address] [place] [address] Dr. Yvan Manzano IG % 0.3 % Normal 0.0-0.5 [facility] Comment on above: Performed By: #### C BC #### [facility] [address] [place] [address] Dr. Yvan Manzano LYMPH # 1.5 103/ul Normal 1.2-3.8 [facility] Comment on above: Performed By: #### C BC #### [facility] [address] [place] [address] Dr. Yvan Manzano Lymphocytes/100 WBC (Bld) 25.3 % Normal 20.5-60.0 [facility] Comment on above: Performed By: #### C BC #### [facility] [address] [place] [address] Dr. Yvan Manzano MANUAL DIFF REQ NO Normal [facility] Comment on above: Performed By: #### C BC #### [facility] [address] [place] [address] Dr. Yvan Manzano MCH (RBC) [Entitic mass] 25.2 pg Critically low 26.7-34.0 [facility] Comment on above: Performed By: #### C BC #### [facility] [address] [place] [address] Dr. Yvan Manzano MCHC (RBC) [Mass/Vol] 31.0 g/dL Normal 29.9-35.2 [facility] Comment on above: Performed By: #### C BC #### [facility] [address] [place] [address] Dr. Yvan Manzano MCV (RBC) [Entitic vol] 81.4 fL Normal 81.0-99.0 [facility] Comment on above: Performed By: #### C BC #### [facility] [address] [place] [address] Dr. Yvan Manzano MONO # 0.4 103/ul Normal 0.3-0.8 [facility] Comment on above: Performed By: #### C BC #### [facility] [address] [place] [address] Dr. Yvan Manzano Monocytes/100 WBC (Bld) 7.7 % Normal 1.7-12.0 [facility] Comment on above: Performed By: #### C BC #### [facility] [address] [place] [address] Dr. Yvan Manzano NEUT # 3.5 103/ul Normal 1.4-6.5 [facility] Comment on above: Performed By: #### C BC #### [facility] [address] [place] [address] Dr. Yvan Manzano Neutrophils/100 WBC (Bld) 60.1 % Normal 43.0-75.0 [facility] Comment on above: Performed By: #### C BC #### [facility] [address] [place] [address] Dr. Yvan Manzano Platelet mean volume (Bld) [Entitic vol] 8.8 fL Critically low 9.5-13.5 [facility] Comment on above: Performed By: #### C BC #### [facility] [address] [place] [address] Dr. Yvan Manzano PLT 347 103/ul Normal 150-450 [facility] Comment on above: Performed By: #### C BC #### [facility] [address] [place] [address] Dr. Yvan Manzano RBC 4.52 106/ul Normal 4.20-5.40 [facility] Comment on above: Performed By: #### C BC #### [facility] [address] [place] [address] Dr. Yvan Manzano WBC 5.7 103/ul Normal 4.0-11.0 [facility] Comment on above: Performed By: #### C BC #### [facility] [address] [address] [address] Yvan Manzano FREE T4on 01-22-2023 Free T4 [Mass/Vol] 0.84 ng/dL Normal 0.76-1.46 [facility] Comment on above: Performed By: #### F T4 #### [facility] [address] [address] [address] Yvan Manzano LIPID PROFILEon 01-22-2023 CHOL-HDL RATIO NORM SEE BELOW Normal [facility] Comment on above: Result Comment: 3.3 - 4.4 LOW RISK 4.4 - 7.1 AVERAGE RISK 7.1 - 11.0 MODERATE RISK >11.0 HIGH RISK Performed By: #### T SH, LIPID #### [facility] [address] [place] [address] Dr. Yvan Manzano Cholesterol [Mass/Vol] 264 mg/dL Critically high <=200 [facility] Comment on above: Performed By: #### T SH, LIPID #### [facility] [address] [place] [address] Dr. Yvan Manzano Cholesterol in HDL [Mass/Vol] 52 mg/dL Normal 40-60 [facility] Comment on above: Performed By: #### T SH, LIPID #### [facility] [address] [address] [address] Yvan Manzano Cholesterol in LDL [Mass/Vol] 173.6 mg/dL Normal [facility] Comment on above: Performed By: #### T SH, LIPID #### [facility] [address] [place] [address] Dr. Yvan Manzano Cholesterol.total/Ch olesterol in HDL [Mass ratio] 5.1 {ratio} Normal [facility] Comment on above: Performed By: #### T SH, LIPID #### [facility] [address] [place] [address] Dr. Yvan Manzano HDL NORMAL > or = 60 mg/dl - LOW CARDIOVASCULAR RISK <40 mg/dl - HIGH CARDIOVASCULAR RISK Normal [facility] Comment on above: Performed By: #### T SH, LIPID #### [facility] [address] [address] [address] Yvan Manzano LDL CALC NORMAL SEE BELOW Normal [facility] Comment on above: Result Comment: <100 mg/dl OPTIMAL 100 - 129 mg/dl NEAR OR ABOVE OPTIMAL 130 - 159 mg/dl BORDERLINE HIGH 160 - 189 mg/dl HIGH >190 mg/dl VERY HIGH Performed By: #### T SH, LIPID #### [facility] [address] [address] [address] Yvan Manzano Triglyceride [Mass/Vol] 192 mg/dL Critically high <=150 [facility] Comment on above: Performed By: #### T SH, LIPID #### [facility] [address] [place] [address] Dr. Yvan Manzano VLDL CALC 38.4 mg/dL Normal [facility] Comment on above: Performed By: #### T SH, LIPID #### [facility] [address] [address] [address] Yvan Manzano TSHon 01-22-2023 TSH 5.749 uIU/mL Critically high 0.358-3.740 [facility] Comment on above: Performed By: #### T SH, LIPID #### [facility] [address] [place] [address] Dr. Yvan Manzano GLYCOHEMOGLOBIN A1Con 2022 ADA RECOMMENDATION SEE BELOW Normal [facility] Comment on above: Result Comment: ADA RECOMMENDED LIMIT 4.0 - 6.0 ADA THERAPEUTIC TARGET < 7.0 ACTION SUGGESTED > 7.0 Performed By: #### A 1C #### [facility] [address] [address] [address] Yvan Manzano Glucose [Mass/Vol] 137 mg/dL Normal [facility] Comment on above: Performed By: #### A 1C #### [facility] [address] [place] [address] Dr. Yvan Manzano HbA1c (Bld) [Mass fraction] 6.4 % Critically high 4.5-6.2 [facility] Comment on above: Performed By: #### A 1C #### [facility] [address] [place] [address] Dr. Yvan Manzano PROF 14(COMP METB)on 023 Albumin [Mass/Vol] 3.4 g/dL Normal 3.4-5.0 [facility] Comment on above: Performed By: #### C MP #### [facility] [address] [place] [address] Dr. Yvan Manzano Albumin/Globulin [Mass ratio] 0.9 {ratio} Normal [facility] Comment on above: Performed By: #### C MP #### [facility] [address] [place] [address] Dr. Yvan Manzano ALP [Catalytic activity/Vol] 74 U/L Normal 46-116 [facility] Comment on above: Performed By: #### C MP #### [facility] [address] [place] [address] Dr. Yvan Manzano ALT [Catalytic activity/Vol] 25 U/L Normal 14-59 [facility] Comment on above: Performed By: #### C MP #### [facility] [address] [place] [address] Dr. Yvan Manzano Anion gap [Moles/Vol] 9.4 mmol/L Normal [facility] Comment on above: Performed By: #### C MP #### [facility] [address] [place] [address] Dr. Yvan Manzano AST [Catalytic activity/Vol] 17 U/L Normal 15-37 [facility] Comment on above: Performed By: #### C MP #### [facility] [address] [place] [address] Dr. Yvan Manzano Bilirubin [Mass/Vol] 0.1 mg/dL Critically low 0.2-1.0 [facility] Comment on above: Performed By: #### C MP #### [facility] [address] [place] [address] Dr. Yvan Manzano Calcium [Mass/Vol] 9.2 mg/dL Normal 8.5-10.1 [facility] Comment on above: Performed By: #### C MP #### [facility] [address] [address] [address] Yvan Manzano Chloride [Moles/Vol] 101 mmol/L Normal 98-107 [facility] Comment on above: Performed By: #### C MP #### [facility] [address] [address] [address] Yvan Manzano CO2 [Moles/Vol] 30.4 mmol/L Normal 21.0-32.0 [facility] Comment on above: Performed By: #### C MP #### [facility] [address] [place] [address] Dr. Yvan Manzano Creatinine [Mass/Vol] 0.71 mg/dL Normal 0.55-1.02 [facility] Comment on above: Performed By: #### C MP #### [facility] [address] [place] [address] Dr. Yvan Manzano EGFR-AF FINNISH >60 Normal >=60 [facility] Comment on above: Performed By: #### C MP #### [facility] [address] [place] [address] Dr. Yvan Manzano EGFR-NON AF FINNISH >60 Normal >=60 [facility] Comment on above: Performed By: #### C MP #### [facility] [address] [place] [address] Dr. Yvan Manzano Globulin (S) [Mass/Vol] 4.0 g/dL Normal [facility] Comment on above: Performed By: #### C MP #### [facility] [address] [address] [address] Yvan Manzano Glucose [Mass/Vol] 138 mg/dL Critically high 74-106 [facility] Comment on above: Performed By: #### C MP #### [facility] [address] [place] [address] Dr. Yvan Manzano Potassium [Moles/Vol] 3.8 mmol/L Normal 3.5-5.1 [facility] Comment on above: Performed By: #### C MP #### [facility] [address] [place] [address] Dr. Yvan Manzano Protein [Mass/Vol] 7.4 g/dL Normal 6.4-8.2 [facility] Comment on above: Performed By: #### C MP #### [facility] [address] [address] [address] Yvan Manzano Sodium [Moles/Vol] 137 mmol/L Normal 136-145 [facility] Comment on above: Performed By: #### C MP #### [facility] [address] [address] [address] Yvan Manzano Urea nitrogen [Mass/Vol] 13.0 mg/dL Normal 7.0-18.0 [facility] Comment on above: Performed By: #### C MP #### [facility] [address] [place] [address] Dr. Yvan Manzano Urea nitrogen/Creatinine [Mass ratio] 18.3 mg/mg Normal [facility] Comment on above: Performed By: #### C MP #### [facility] [address] [address] [address] Yvan Manzano LIPID PROFILEon 03-31-2022 CHOL-HDL RATIO NORM SEE BELOW Normal [facility] Comment on above: Result Comment: 3.3 - 4.4 LOW RISK 4.4 - 7.1 AVERAGE RISK 7.1 - 11.0 MODERATE RISK >11.0 HIGH RISK Performed By: #### C MP, LIPID #### [facility] [address] [place] [address] Dr. Yvan Manzano Cholesterol [Mass/Vol] 229 mg/dL Critically high <=200 [facility] Comment on above: Performed By: #### C MP, LIPID #### [facility] [address] [address] [address] Yvan Manzano Cholesterol in HDL [Mass/Vol] 51 mg/dL Normal 40-60 [facility] Comment on above: Performed By: #### C MP, LIPID #### [facility] [address] [address] [address] Yvan Manzano Cholesterol in LDL [Mass/Vol] 150.4 mg/dL Normal [facility] Comment on above: Performed By: #### C MP, LIPID #### [facility] [address] [address] [address] Yvan Manzano Cholesterol.total/Ch olesterol in HDL [Mass ratio] 4.5 {ratio} Normal [facility] Comment on above: Performed By: #### C MP, LIPID #### [facility] [address] [place] [address] Dr. Yvan Manzano HDL NORMAL > or = 60 mg/dl - LOW CARDIOVASCULAR RISK <40 mg/dl - HIGH CARDIOVASCULAR RISK Normal [facility] Comment on above: Performed By: #### C MP, LIPID #### [facility] [address] [place] [address] Dr. Yvan Manzano LDL CALC NORMAL SEE BELOW Normal [facility] Comment on above: Result Comment: <100 mg/dl OPTIMAL 100 - 129 mg/dl NEAR OR ABOVE OPTIMAL 130 - 159 mg/dl BORDERLINE HIGH 160 - 189 mg/dl HIGH >190 mg/dl VERY HIGH Performed By: #### C MP, LIPID #### [facility] [address] [place] [address] Dr. Yvan Manzano Triglyceride [Mass/Vol] 138 mg/dL Normal <=150 [facility] Comment on above: Performed By: #### C MP, LIPID #### [facility] [address] [place] [address] Dr. Yvan Manzano VLDL CALC 27.6 mg/dL Normal [facility] Comment on above: Performed By: #### C MP, LIPID #### [facility] [address] [place] [address] Dr. Yvan Manzano MICROALB CREAT RATIO RANDOMo n 03-31-2022 mALB 1.4 mg/L Normal <=30.0 [facility] Comment on above: Performed By: #### M CRR #### [facility] [address] [place] [address] Dr. Yvan Manzano MALB CR RATIO 6.0 mg/g Normal 0.0-29.9 [facility] Comment on above: Performed By: #### M CRR #### [facility] [address] [place] [address] Dr. Yilan Manzano MALB CR RATIO RANGE SEE BELOW Normal [facility] Comment on above: Result Comment: NO M ICROALBUMINURIA 0-29 MG/G CLINICAL MICROALBUMINURIA 30-300 MG/G MACROALBUMINURIA >300 MG/G Performed By: #### M CRR #### [facility] [address] [address] [address] Yvan Manzano URINE CREAT 232.88 mg/dL Normal 20.00-300.00 [facility] Comment on above: Performed By: #### M CRR #### [facility] [address] [address] [address] Yvan Manzano PROF 14(COMP METB)on 022 Albumin [Mass/Vol] 3.6 g/dL Normal 3.4-5.0 [facility] Comment on above: Performed By: #### C MP, LIPID #### [facility] [address] [place] [address] Dr. Yvan Manzano Albumin/Globulin [Mass ratio] 0.9 {ratio} Normal [facility] Comment on above: Performed By: #### C MP, LIPID #### [facility] [address] [address] [address] Yvan Manzano ALP [Catalytic activity/Vol] 63 U/L Normal 46-116 [facility] Comment on above: Performed By: #### C MP, LIPID #### [facility] [address] [address] [address] Yvan Manzano ALT [Catalytic activity/Vol] 33 U/L Normal 14-59 [facility] Comment on above: Performed By: #### C MP, LIPID #### [facility] [address] [address] [address] Yvan Manzano Anion gap [Moles/Vol] 11.7 mmol/L Normal [facility] Comment on above: Performed By: #### C MP, LIPID #### [facility] [address] [address] [address] Yvan Manzano AST [Catalytic activity/Vol] 23 U/L Normal 15-37 [facility] Comment on above: Performed By: #### C MP, LIPID #### [facility] [address] [address] [address] Yvan Manzano Bilirubin [Mass/Vol] 0.2 mg/dL Normal 0.2-1.0 [facility] Comment on above: Performed By: #### C MP, LIPID #### [facility] [address] [address] [address] Yvan Manzano Calcium [Mass/Vol] 9.5 mg/dL Normal 8.5-10.1 [facility] Comment on above: Performed By: #### C MP, LIPID #### [facility] [address] [address] [address] Yvan Manzano Chloride [Moles/Vol] 102 mmol/L Normal 98-107 [facility] Comment on above: Performed By: #### C MP, LIPID #### [facility] [address] [place] [address] Dr. Yvan Manzano CO2 [Moles/Vol] 28.0 mmol/L Normal 21.0-32.0 [facility] Comment on above: Performed By: #### C MP, LIPID #### [facility] [address] [place] [address] Dr. Yvan Manzano Creatinine [Mass/Vol] 0.71 mg/dL Normal 0.55-1.02 [facility] Comment on above: Performed By: #### C MP, LIPID #### [facility] [address] [place] [address] Dr. Yvan Manzano EGFR-AF FINNISH >60 Normal >=60 [facility] Comment on above: Performed By: #### C MP, LIPID #### [facility] [address] [place] [address] Dr. Yvan Manzano EGFR-NON AF FINNISH >60 Normal >=60 [facility] Comment on above: Performed By: #### C MP, LIPID #### [facility] [address] [place] [address] Dr. Yvan Manzano Globulin (S) [Mass/Vol] 4.0 g/dL Normal [facility] Comment on above: Performed By: #### C MP, LIPID #### [facility] [address] [address] [address] Yvan Manzano Glucose [Mass/Vol] 87 mg/dL Normal 74-106 [facility] Comment on above: Performed By: #### C MP, LIPID #### [facility] [address] [address] [address] Yvan Manzano Potassium [Moles/Vol] 3.7 mmol/L Normal 3.5-5.1 [facility] Comment on above: Performed By: #### C MP, LIPID #### [facility] [address] [address] [address] Yvan Manzano Protein [Mass/Vol] 7.6 g/dL Normal 6.4-8.2 [facility] Comment on above: Performed By: #### C MP, LIPID #### [facility] [address] [address] [address] Yvan Manzano Sodium [Moles/Vol] 138 mmol/L Normal 136-145 [facility] Comment on above: Performed By: #### C MP, LIPID #### [facility] [address] [address] [address] Yvan Manzano Urea nitrogen [Mass/Vol] 14.0 mg/dL Normal 7.0-18.0 [facility] Comment on above: Performed By: #### C MP, LIPID #### [facility] [address] [address] [address] Yvan Manzano Urea nitrogen/Creatinine [Mass ratio] 19.7 mg/mg Normal [facility] Comment on above: Performed By: #### C MP, LIPID #### [facility] [address] [address] [address] Yvan Manzano XR hip RT min 2V(w/wo pelvis )*on 03-26-2022 XR hip RT min 2V(w/wo pelvis)* [facility] [address] [place] [id number] XRay Report Signed Patient: Tatiana Brewster MR#: [id number] : 1975 Acct:[id number] Age/Sex: 46 / F ADM Date: 03/26/22 Loc: XDCLY Room: Type: [facility] CLI Attending Dr: Mona ALVARADO Copies to: [...] Michael Harper M.D.03/26/2022 3:38 PM Dictation Location: [address] [address] Transcribed By: [facility] 03/26/22 1538 Dictated By: Michael Harper DO 03/26/22 1534 Signed By: 03/26/22 1538 Normal [facility] XR sacrum coccyx min 2Von XR sacrum coccyx min 2V [facility] [place] [address] XRay Report Signed Patient: Tatiana Brewster MR#: [id number] : 1975 Acct:[id number] Age/Sex: 45 / F ADM Date: 09/29/21 Loc: XDUCLY Room: Type: [facility] CLI Attending Dr: Mona ALVARADO Ordering Provider: [...] Laron Villegas M.D.09/29/2021 4:16 PM Dictation Location: [place] [address] Transcribed By: [facility] 09/29/21 161 Dictated By: Laron Villegas II, MD 09/29/211612 Signed By: 09/29/21 161 [facility] COVID Quick Testingon 2020 Result Negative [facility] Other Vital Signs Date Time Vital Sign Value Performing Clinician Facility 05-03-2023 09:05-0400 Body height 157.48 cm Priyanka Jones Other [facility] Other 05-03-2023 09:05-0400 Body mass index (BMI) [Ratio] 35.02 kg/m2 Priyanka Jones Other [facility] Other 05-03-2023 09:05-0400 Body temperature 97.5 [degF] Priyanka Jones Other [facility] Other 05-03-2023 09:05-0400 Body weight 86.86 kg Priyanka Jones Other [facility] Other 05-03-2023 09:05-0400 Diastolic blood pressure 76 mm[Hg] Priyanka Jones Other [facility] Other 05-03-2023 09:05-0400 Respiratory rate 18 /min Priyanka Jones Other [facility] Other 05-03-2023 09:05-0400 SaO2% (BldA) [Mass fraction] 100 % Priyanka Jones Other [facility] Other 05-03-2023 09:05-0400 Systolic blood pressure 117 mm[Hg] Priyanka Jones Other [facility] Other 11-17-2022 11:30-0500 Body height 157.48 cm Mona Yeungault Other [facility] Other 11-17-2022 11:30-0500 Body mass index (BMI) [Ratio] 35.3 kg/m2 Mona Yeungault Other [facility] Other 11-17-2022 11:30-0500 Body temperature 98.7 [degF] Mona Yeungault Other [facility] Other 11-17-2022 11:30-0500 Body weight 87.54 kg Mona Yeungault Other [facility] Other 11-17-2022 11:30-0500 Respiratory rate 18 /min Mona Yeungault Other [facility] Other 11-17-2022 11:30-0500 SaO2% (BldA) [Mass fraction] 98 % Mona Mikel Other [facility] Other 09-28-2022 16:30-0500 Body height 157.48 cm Mona Mikel Other [facility] Other 09-28-2022 16:30-0500 Body mass index (BMI) [Ratio] 35.3 kg/m2 Mona Mikel Other [facility] Other 09-28-2022 16:30-0500 Body temperature 98 [degF] Mona Morin Other [facility] Other 09-28-2022 16:30-0500 Body weight 87.54 kg Mona Morin Other [facility] Other 09-28-2022 16:30-0500 Diastolic blood pressure 79 mm[Hg] Mona Morin Other [facility] Other 09-28-2022 16:30-0500 Respiratory rate 18 /min Mona Morin Other [facility] Other 09-28-2022 16:30-0500 SaO2% (BldA) [Mass fraction] 98 % Mona Morin Other [facility] Other 09-28-2022 16:30-0500 Systolic blood pressure 130 mm[Hg] Mona Morin Other [facility] Other 07-14-2022 15:00-0400 Body height 157.48 cm Mona Morin Other [facility] Other 07-14-2022 15:00-0400 Body mass index (BMI) [Ratio] 35.66 kg/m2 Mona Morin Other [facility] Other 07-14-2022 15:00-0400 Body weight 88.45 kg Mona Morin Other [facility] Other 07-14-2022 15:00-0400 Diastolic blood pressure 89 mm[Hg] Mona Yeungault Other [facility] Other 07-14-2022 15:00-0400 Respiratory rate 18 /min Mona Morin Other [facility] Other 07-14-2022 15:00-0400 SaO2% (BldA) [Mass fraction] 98 % Mona Morin Other [facility] Other 07-14-2022 15:00-0400 Systolic blood pressure 145 mm[Hg] Mona Morin Other [facility] Other 06-30-2022 12:00-0400 Body height 157.48 cm Mona Morin Other [facility] Other 06-30-2022 12:00-0400 Body mass index (BMI) [Ratio] 35.48 kg/m2 Mona Yeungault Other [facility] Other 06-30-2022 12:00-0400 Body temperature 97.7 [degF] Mona Morin Other [facility] Other 06-30-2022 12:00-0400 Body weight 88 kg Mona Morin Other [facility] Other 06-30-2022 12:00-0400 Diastolic blood pressure 87 mm[Hg] Mona Morin Other [facility] Other 06-30-2022 12:00-0400 Respiratory rate 18 /min Mona Yeungault Other [facility] Other 06-30-2022 12:00-0400 SaO2% (BldA) [Mass fraction] 97 % Mona Yeungault Other [facility] Other 06-30-2022 12:00-0400 Systolic blood pressure 136 mm[Hg] Mona Morin Other [facility] Other 02-03-2022 11:00-0400 Body height 157.48 cm Mona Morin Other [facility] Other 02-03-2022 11:00-0400 Body mass index (BMI) [Ratio] 35.84 kg/m2 Mona Morin Other [facility] Other 02-03-2022 11:00-0400 Body temperature 98.2 [degF] Mona Morin Other [facility] Other 02-03-2022 11:00-0400 Body weight 88.91 kg Mona Morin Other [facility] Other 02-03-2022 11:00-0400 Diastolic blood pressure 96 mm[Hg] Mona Morin Other [facility] Other 02-03-2022 11:00-0400 Respiratory rate 18 /min Mona Morin Other [facility] Other 02-03-2022 11:00-0400 SaO2% (BldA) [Mass fraction] 99 % Mona Morin Other [facility] Other 02-03-2022 11:00-0400 Systolic blood pressure 157 mm[Hg] Mona Yeungault Other [facility] Other 08-31-2021 10:00-0500 Body height 157.48 cm Kaylie Echeverria Other [facility] Other 08-31-2021 10:00-0500 Body mass index (BMI) [Ratio] 35.66 kg/m2 Kaylie Ginty Other [facility] Other 08-31-2021 10:00-0500 Body temperature 98.7 [degF] Kaylie Ginty Other [facility] Other 08-31-2021 10:00-0500 Body weight 88.45 kg Kaylie Ginty Other [facility] Other 08-31-2021 10:00-0500 Respiratory rate 18 /min Kaylie Ginty Other [facility] Other 08-31-2021 10:00-0500 SaO2% (BldA) [Mass fraction] 95 % Kaylie Ginty Other [facility] Other Encounters Encounter Date Encounter Type Care Provider Facility Start: 12-24-2023 Telephone encounter Saeid Gooden [facility] Start: 11-04-2023 End: 11-04-2023 ambulatory [facility] Start: 10-26-2023 End: 10-26-2023 ambulatory ELSI AICHHOLZ Not Available Start: 09-13-2023 End: 09-13-2023 ambulatory ELSI AICHHOLZ Not Available Start: 05-03-2023 End: 05-03-2023 ambulatory Priyanka Jones Other [facility] Other Start: 05-03-2023 Office outpatient visit 15 minutes Priyanka Jones [facility] Start: 01-22-2023 End: 01-23-2023 ambulatory MONA MORIN Facility: Start: 11-23-2022 End: 11-23-2022 ambulatory Mona Morin Other [facility] Other Start: 11-23-2022 Telephone encounter Mona Palmerl t [facility] Start: 11-20-2022 End: 11-20-2022 ambulatory Mona Morin Other [facility] Other Start: 11-20-2022 Encounter by juan treviño Mona Morin [facility] Start: 11-17-2022 End: 11-18-2022 ambulatory MONA MORIN [employer] Other Start: 11-17-2022 Office outpatient visit 15 minutes Monamonty Morin [facility] Start: 10-06-2022 End: 10-06-2022 ambulatory Mona Morin Other [facility] Other Start: 10-06-2022 Telephone encounter Mona Palmerl t [facility] Start: 09-29-2022 End: 09-29-2022 ambulatory PHYSICIAN NO [facility] Work Phone: Start: 09-29-2022 End: 09-29-2022 Departed Referred PHYSICIAN NO [facility] [address] [place] Work Phone: Start: 09-28-2022 End: 09-28-2022 ambulatory Mona Morin Other [facility] Other Start: 09-28-2022 Office outpatient visit 15 minutes Mona Morin [facility] Start: 09-14-2022 End: 09-14-2022 ambulatory Mona Morin Other [facility] Other Start: 09-14-2022 Telephone encounter Mona Breaul t [facility] Start: 07-14-2022 End: 07-14-2022 ambulatory Mona Mikel Other [facility] Other Start: 07-14-2022 Office outpatient visit 15 minutes Mona Mikel [facility] Start: 06-30-2022 End: 06-30-2022 ambulatory Mona Mikel Other [facility] Other Start: 06-30-2022 Office outpatient visit 15 minutes Mona Mikel [facility] Start: 04-02-2022 End: 04-02-2022 ambulatory Mona Mikel Other [facility] Other Start: 04-02-2022 Telephone encounter Mona Breaul t [facility] Start: 03-31-2022 Telephone encounter Mona Breaul t [facility] Start: 03-31-2022 End: 04-01-2022 ambulatory MOAN MIKEL [facility] Other Start: 02-03-2022 End: 02-03-2022 ambulatory Mona Mikel Other [facility] Other Start: 02-03-2022 Office outpatient visit 15 minutes Mona Mikel [facility] Start: 12-10-2021 End: 12-10-2021 ambulatory Mona Mikel Other [facility] Other Start: 12-10-2021 Telephone encounter Mona Breaul t [facility] Start: 11-10-2021 End: 11-10-2021 ambulatory Mona Mikel Other [facility] Other Start: 11-10-2021 Telephone encounter Mona Breaul t [facility] Start: 09-03-2021 End: 09-03-2021 ambulatory Kaylie Ginty Other [facility] Other Start: 09-03-2021 Telephone encounter Kaylie Echeverria [facility] Start: 08-31-2021 End: 08-31-2021 ambulatory Kaylie Echeverria Other [facility] Other Start: 08-31-2021 Office outpatient visit 15 minutes Kaylie Echeverria [facility] Procedures Date Procedure Procedure Detail Performing Clinician Start: 10-11-2017 Mammography Saeid hogue CMA Start: 02-05-2017 Microscopic observat ion [Identifier] in Cervix by Cyto stain Saeid Gooden CMA Plan of Treatment Date Care Activity Detail Author Start: 05-26-2024 Adult BMI Screening Adult BMI Screen ing [facility] Start: 05-26-2024 Tobacco Screening Tobacco Screening [facility] Start: 05-28-2023 Influenza vaccination Influenza Vacc ine [facility] Start: 09-29-2022 Aerobic Culture Aerobic Culture [facility] Start: 09-29-2022 Anaerobic Culture Anaerobic Culture [facility] Start: 09-29-2022 Microscopic observat ion [Identifier] in Unspecified specimen by Gram stain Gram Stain [facility] Start: 02-06-2020 Screening for malign ant neoplasm of cervix Pap Smear [facility] Start: 10-11-2018 Screening for malign ant neoplasm of breast Mammogram [facility] Start: 12-06-1995 DTaP,Tdap and Td Vaccines (1 - Tdap) DTaP,Tdap and Td Vaccines (1 - Tdap) [facility] Start: 1994 Adult BMI Follow Up Plan Adult BMI Follow Up Plan [facility] Start: 1988 Depression Screening Depression Scre ening [facility] Bacteria identified in Unspecified specimen by Aerobe culture [facility] Bacteria identified in Unspecified specimen by Anaerobe culture [facility] Immunizations Immunization Date Immunization Notes Care Provider Fa cility 10-01-2020 influenza virus vacc ine, unspecified formulation Saeid Gooden [facility] Payers Date Payer Category Payer Medicaid [id number] 2022 Medicaid [place] [id number] 2022-Present [address] [place] [address] [id number] 2017 Unknown ANTHEM BCBS OUT OF STATE PPO/TRUST [id number] 2017-Present [phone] [address] [place] [address] [id number] 1975 Unknown [id number] 1975 Unknown [id number] 1976 Unknown [id number] 93 1975 Unknown [id number] 1975 Unknown [id number] 1975 Unknown [id number] 1959 Unknown [id number] 1959 Unknown [id number] Blue Cross Blue Shield [id number] Self-pay Self Pay [id number] Unknown [id number] Social History Date Type Detail Facility Unknown if ever smoked [facility] Other Start: 11-06-2020 End: 05-26-2023 Sex Assigned At [facility] Other Start: 1975 Sex Assigned At Female F [facility] Start: 08-23-2017 Tobacco smoking stat us NHIS Never smoked tobacco [facility] Start: 08-23-2017 Tobacco use and exposure Smokeless tobacco non-user [facility] Start: 05-26-2023 Alcohol intake Current non-dr crystal grower of alcohol (finding) [facility] Start: 11-06-2020 End: 05-26-2023 History of Social function [facility] Childcare Unknown [facility] Start: 1975 Sex Assigned At Not on file P [facility] Medical Equipment Procedure Code Equipment Code Equipment Origin al Text Equipment Identifier Dates Start: 06-04-2020 Clinical Notes 08-31-2021 to 12-24-2023 Telephone Encounter - Saeid Gooden CMA - 12/24/2023 10:25 AM EDTTelephone Encounter - Saeid Gooden CMA - 12/24/2023 10:25 AM EDT Note Date & Type Note Facility 12-24-2023 Miscellaneous Notes Formattin g of this note might be different from the original. Attempted to contact patient to reschedule appointment on 05/31/[address] Verdugo is out of the office. No Vm set up to leave a message. documented in this encounter [facility] 12-24-2023 Telephone encount er Note Attempted to contact patient to reschedule appointment on 05/31/[address] Verdugo is out of the office. No Vm set up to leave a message. [facility] 05-03-2023 Evaluation note Encounter Date Diagnosis Assessment [...] fever. Patient/Parent verbalized understanding of treatment plan. [facility] Other 02-21-2023 Evaluation note* Encounter Date Diagnosis [...] weeks for the cough to go away [facility] Other 01-02-2023 Evaluation note* Encounter Date Diagnosis [...] obtained for C&S. Will call with results. [facility] Other 12-19-2022 Evaluation note* Encounter Date Diagnosis Assessment Notes Treatment Notes Treatment Clinical Notes Aug, Gastroesophageal ref lux disease, unspecified whether esophagitis present (ICD-10 - K21.9) Aug, PCOS (polycystic ovarian syndrome) (ICD-10 - E28.2) [facility] Other 10-18-2022 Evaluation note* Encounter Date Diagnosis Assessment Notes Treatment Notes Treatment Clinical Notes Jun, Fibromyalgia (ICD-10 - M79.7) Continue current treatment regimen. Printed off script to use as needed [facility] Other 10-04-2022 Evaluation note* Encounter Date Diagnosis Assessment Notes Treatment Notes Treatment Clinical Notes Jun, Primary hypertension (ICD-10 - I10) Jun, SJ (generalized anxiety disorder) (ICD-10 - F41.1) [facility] Other 07-07-2022 Evaluation note* Encounter Date Diagnosis Assessment Notes Treatment Notes Treatment Clinical Notes Mar, Right hip pain (ICD-10 - M25.551) [facility] Other 05-10-2022 Evaluation note* Encounter Date Diagnosis Assessment Notes Treatment Notes Treatment Clinical Notes January, Gastroesophageal ref lux disease, unspecified whether esophagitis present (ICD-10 - K21.9) Continue to take medication as directed. January, PCOS (polycystic ovarian syndrome) (ICD-10 - E28.2) Take medication as directed with food [facility] Other 03-16-2022 Evaluation note* Encounter Date Diagnosis Assessment Notes Treatment Notes Treatment Clinical Notes Nov, Sacral back pain (ICD-10 - M53.3) [facility] Other 02-14-2022 Evaluation note* Encounter Date Diagnosis Assessment Notes Treatment Notes Treatment Clinical Notes Oct, Gastroesophageal ref lux disease, unspecified whether esophagitis present (ICD-10 - K21.9) [facility] Other 02-14-2022 Evaluation note* Encounter Date Diagnosis Assessment Notes Treatment Notes Treatment Clinical Notes Oct, Sacral back pain (ICD-10 - M53.3) [facility] Other 2021 Evaluation note* Encounter Date Diagnosis [...] Patient care instructions given in writting by [facility] document. [facility] Other Evaluation noteNo InformationNort [employer] Other Evaluation noteNo assessment information available [facility] Work Phone: History general Narrative - Reported* Type Description Date Medical History asthma Medical History pcos Medical History Fibromyalgia Medical History Hypothyroidism - euthyroid Medical History chronic fatigue Surgical History gall bladder Surgical History vein removed in bilaterally Surgical History gastric sleeve Hospitalization History see above Hospitalization History CHILD X'S 5 [facility] Other InstructionsNot on filedocumented in this encounter [facility] SystemReason for visit NarrativeDermatology Referral Update [facility] Other Summary Purpose Family History No Family History Records FoundNo Family History Records FoundNo Family History Records FoundNo Family History Records Found Advance Directives Advance Directive Response Recorded Date/ Time Advance Directives No July 12:06pm Latest Code Status on File Code Status Date Activated Date Inactivated Comments Full Code 01/24/2018 11:30 AM 01/26/2018 12:39 PM Chief Complaint and Reason for Visit Chief [...] section and content) DATE CREATED AUTHOR 03/27/2022 [facility] DATE CREATED AUTHOR AUTHOR'S ORGANIZ ATION 01/29/2023 [facility] pital DATE CREATED AUTHOR AUTHOR'S ORGANIZ ATION 10/27/2023 [facility] EPIC DATE CREATED AUTHOR AUTHOR'S ORGANIZ ATION 11/08/2023 [facility] Teams (unrecognized sec tion and content) Team Status: Inactive Member Role Status Dates PHYSICIAN NO FAMILY Primary Care Provider Active CHRISTIANO Jha Attending Provider Active Team Status: Active Member Role Status Dates PHYSICIAN NO FAMILY Primary Care Provider Active 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 [facility]. provides no warranty or guarantee of the accuracy or completeness of information in this document.
== END 2023-12-27 11:02 | disposition home or self-care (01) ==
LOC: VC 11:01
PROVIDERS: PCP Radiology Diagnostic Radiology; Visit Provider Radiology Diagnostic Radiology
DX: I80.01 Phlebitis and thrombophlebitis of superficial vessels of right lower extremity (principal)
CPT/HCPCS: 93971; G0463

== ENCOUNTER 2024-01-10 09:00 | Outpatient (OUT) | payer BC, MEDICAID, SELFPAY ==
--- NOTE | 2024-01-10 09:01 | VEIN_ITS ---
[address] [address] Patient Name: JONNATHAN SEPULVEDA MRN: [id number] date: 1975 Sex: F Assigned Patient Location: Current Patient Location: Accession/Order Number: [id number] Exam Date: 01/10/2024 09:05 Report Date: 01/10/2024 10:02 At the request of: TRE VALDOVINOS Procedure: VC Endovenous Ablation 1VeinRT EXAMINATION: VC Endovenous Ablation 1VeinRT HISTORY: I83.813 Pain due to varicose veins of bilateral legs COMPARISON: No relevant comparison available. TECHNIQUE: The risks and benefits of the procedure had been previously discussed, and were rediscussed at length. Informed written consent was obtained. Leslie Denis and Garrett Arellano assisted. Time out procedure was performed. The right lower extremity was prepared and draped in the usual sterile fashion to allow knee flexion in the sterile field. Duplex ultrasound probe was draped in a sterile cover, sterile transmission gel was used. Venous mapping was performed with the areas of dilation and large tributaries marked. The total length was 48 cm from the entry 8 cm above the medial malleolus to 3 cm below the saphenofemoral junction. The diameter of the greater saphenous vein ranged from 5-7 mm. A 30 gauge needle and 1% buffered lidocaine was used to anesthetize the entry site. A 4 mm incision was made with a scalpel and the saphenous vein was entered percutaneously under direct ultrasound guidance with a micropuncture set, a single stick was successful in gaining access. A micro-guide wire was inserted and the needle removed. A micro-set including a dilator was inserted over the microwire and the needle and dilator were removed. A 0.018 guide wire was inserted through the micro-set and threaded through the saphenous vein to the saphenofemoral junction. The dilator was removed and an introducer sheath was inserted over the wire until the end of the sheath entered the saphenofemoral junction. The dilator and wire were removed and the 600 micron fiber was introduced and placed and positioned so that it extended beyond the sheath and was 3 cm peripheral to the saphenofemoral femoral junction. Final position of the fiber was determined by ultrasound guidance and duplex imaging. Lorriecent anesthetic was delivered by ultrasound guidance. 225 cc of fluid was delivered along the entire course of the saphenous vein. The solution consisted of 1000 cc of normal saline with 40 mL of 1% lidocaine and 20 mL of sodium bicarbonate. A final positioning check was made. The energy source was turned on by means of the foot pedal and the fiber and sheath were withdrawn. The total number of Joules delivered was 2239. The laser was active for 280 seconds under continuous pulse, average laser use of 8 J. Laser start time 945 AM 01/10/2024. Laser stop time 9:52AM 01/09/2025. A duplex ultrasound revealed compressibility and flow at the saphenofemoral junction immediately after the procedure. Hemostasis at the access site was achieved. The skin incision of the saphenous vein was closed with a 4 x 4. A compression stocking was applied. Postop instructions were given. A follow up appointment was recommended and scheduled. The patient tolerated the procedure well and was discharged in good condition . VEIN/VC Endovenous Ablation 1VeinRT IMPRESSION: Technically successful endovenous laser ablation right great saphenous vein Electronically authenticated by: TRE VALDOVINOS Date: 01/10/2024 10:02
--- OUTSIDE RECORDS SUMMARY | 2024-01-10 09:07 | XMS_ITS | CCD ---
Author Organization [facility] Care Team Providers Care Biology Lecturer Name Role Phone Kaylie Echeverria Unavailable Mona Morin Unavailable NO FAMILY, PHYSICIAN Primary Care Provider CHRISTIANO Ward Attending Provider MONA MORIN Primary Care Unavailable MISC, DR ELIAS Attending Unavailable MISC, DR ELIAS Admitting Unavailable ERICK, OVERLOCK HEMMER ELSI Consulting Unavailable MONA MORIN Consulting Unavailable MONA MORIN Primary Care Unavailable MONA MORIN Admitting Unavailable MONA MORIN Attending Unavailable MONA MORIN Primary Care Unavailable MIKEL, MONA Admitting Unavailable MONA MORIN Attending Unavailable MONA MORIN Consulting Unavailable Priyanka Jones Unavailable ELSI SUAREZ Attending Unavailable ELSI SUAREZ Attending Unavailable TD BERUMEN Attending Unavailable MONA MORIN Referring Unavailable MONA MORIN Primary Care Unavailable Mikel FELTMAKER-BRENT, Mona Primary Care Provide r Allergies Allergy Classification Reported Allergen(s) Allergy Type Date of Onset Reaction(s) Facility (5 sources) Cephalexin Drug Allergy rash [facility] Other (12 sources) Cephalexin Drug Allergy rash [facility] Other (1 source) Sulfamethoxazole / Trimethoprim Drug Allergy 3 [facility] Repository Medications Current Medications Medication Drug Class(es) Dates Sig (Normalized) Sig (Original) [id number] 200 actuat albuterol 0.09 mg/actuat metered dose [...] oral solution (2 sources) alpha-Adrenergic Agonist, Uncompetitive P-lwsirh-R-aspartate Receptor Antagonist, Sigma-1 Agonist Start: 08-31-2021 take [...] pyogenes Org specific cx Ql (Throat) Negative [facility] Other Quick Strep [facility] Other INSULINon 01-26-2023 Insulin 21.3 uIU/mL Normal 2.6-24.9 [facility] Comment on above: Performed By: #### I NSULIN #### [facility] [address] [place] [address] Dr. Yvan Manzano CORTISOLon 01-23-2023 Cortisol 11.2 ug/dL Normal 6.2-19.4 [facility] Comment on above: Result Comment: [place] Note: The reference interval and flagging for this test is for an AM collection. If this is a PM collection please use: Cortisol PM: 2.3-11.9 [facility] also offers: [id number]: Cortisol- AM [id number]: Cortisol- PM Performed By: #### C BC #### [facility] [address] [place] [address] Dr. Yvan Manzano CBC AUTO DIFFon 01-22-2023 BASO # 0.1 103/ul Normal 0.0-0.1 [facility] Comment on above: Performed By: #### C BC #### [facility] [address] [place] [address] Dr. Yvan Manzano Basophils/100 WBC (Bld) 0.9 % Normal 0.2-2.0 [facility] Comment on above: Performed By: #### C BC #### [facility] [address] [place] [address] Dr. vYan Manzano EO # 0.3 103/ul Normal 0.0-0.7 [facility] Comment on above: Performed By: #### C BC #### [facility] [address] [place] [address] Dr. Yvan Manzano Eosinophils/100 WBC (Bld) 5.7 % Normal 0.9-7.0 [facility] Comment on above: Performed By: #### C BC #### [facility] [address] [place] [address] Dr. Yvan Manzano Erythrocyte distribution width (RBC) [Ratio] 14.6 % Normal 11.0-15.0 [facility] Comment on above: Performed By: #### C BC #### [facility] [address] [place] [address] Dr. Yvan Manzano Hematocrit (Bld) [Volume fraction] 36.8 % Normal 36.0-48.0 [facility] Comment on above: Performed By: #### C BC #### [facility] [address] [place] [address] Dr. Yvan Manzano Hemoglobin (Bld) [Mass/Vol] 11.4 g/dL Critically low 12.0-16.0 [facility] Comment on above: Performed By: #### C BC #### [facility] [address] [address] [address] Yvan Manzano IG # 0.02 10e3/ul Normal 0.00-0.03 [facility] Comment on above: Performed By: #### C BC #### [facility] [address] [place] [address] Dr. Yvan Manzano IG % 0.3 % Normal 0.0-0.5 [facility] Comment on above: Performed By: #### C BC #### [facility] [address] [place] [address] Dr. Yvan Manzano LYMPH # 1.5 103/ul Normal 1.2-3.8 [facility] Comment on above: Performed By: #### C BC #### [facility] [address] [place] [address] Dr. Yvan Manzano Lymphocytes/100 WBC (Bld) 25.3 % Normal 20.5-60.0 [facility] Comment on above: Performed By: #### C BC #### [facility] [address] [place] [address] Dr. Yvan Manzano MANUAL DIFF REQ NO Normal [facility] Comment on above: Performed By: #### C BC #### [facility] [address] [place] [address] Dr. Yvan Manzano MCH (RBC) [Entitic mass] 25.2 pg Critically low 26.7-34.0 [facility] Comment on above: Performed By: #### C BC #### [facility] [address] [place] [address] Dr. Yvan Manzano MCHC (RBC) [Mass/Vol] 31.0 g/dL Normal 29.9-35.2 [facility] Comment on above: Performed By: #### C BC #### [facility] [address] [place] [address] Dr. Yvan Manzano MCV (RBC) [Entitic vol] 81.4 fL Normal 81.0-99.0 [facility] Comment on above: Performed By: #### C BC #### [facility] [address] [place] [address] Dr. Yvan Manzano MONO # 0.4 103/ul Normal 0.3-0.8 [facility] Comment on above: Performed By: #### C BC #### [facility] [address] [place] [address] Dr. Yvan Manzano Monocytes/100 WBC (Bld) 7.7 % Normal 1.7-12.0 [facility] Comment on above: Performed By: #### C BC #### [facility] [address] [place] [address] Dr. Yvan Manzano NEUT # 3.5 103/ul Normal 1.4-6.5 [facility] Comment on above: Performed By: #### C BC #### [facility] [address] [place] [address] Dr. Yvan Manzano Neutrophils/100 WBC (Bld) 60.1 % Normal 43.0-75.0 [facility] Comment on above: Performed By: #### C BC #### [facility] [address] [place] [address] Dr. Yvan Manzano Platelet mean volume (Bld) [Entitic vol] 8.8 fL Critically low 9.5-13.5 [facility] Comment on above: Performed By: #### C BC #### [facility] [address] [place] [address] Dr. Yvan Manzano PLT 347 103/ul Normal 150-450 [facility] Comment on above: Performed By: #### C BC #### [facility] [address] [place] [address] Dr. Yvan Manzano RBC 4.52 106/ul Normal 4.20-5.40 [facility] Comment on above: Performed By: #### C BC #### [facility] [address] [place] [address] Dr. Yvan Manzano WBC 5.7 103/ul Normal 4.0-11.0 [facility] Comment on above: Performed By: #### C BC #### [facility] [address] [address] [address] Yvan Manzano FREE T4on 01-22-2023 Free T4 [Mass/Vol] 0.84 ng/dL Normal 0.76-1.[address] [facility] Comment on above: Performed By: #### F T4 #### [facility] [address] [address] [address] Yvan Manzano LIPID PROFILEon 01-22-2023 CHOL-HDL RATIO NORM SEE BELOW Normal [facility] Comment on above: Result Comment: 3.3 - 4.4 LOW RISK 4.4 - 7.1 AVERAGE RISK 7.1 - 11.0 MODERATE RISK >11.0 HIGH RISK Performed By: #### T SH, LIPID #### [facility] [address] [place] [address] Dr. Yvan Manzano Cholesterol [Mass/Vol] 264 mg/dL Critically high <=200 [facility] Comment on above: Performed By: #### T SH, LIPID #### [facility] [address] [place] [address] Dr. Yvan Manzano Cholesterol in HDL [Mass/Vol] 52 mg/dL Normal 40-60 [facility] Comment on above: Performed By: #### T SH, LIPID #### [facility] [address] [address] [address] Yvan Manzano Cholesterol in LDL [Mass/Vol] 173.6 mg/dL Normal [facility] Comment on above: Performed By: #### T SH, LIPID #### [facility] [address] [place] [address] Dr. Yvan Manzano Cholesterol.total/Ch olesterol in HDL [Mass ratio] 5.1 {ratio} Normal [facility] Comment on above: Performed By: #### T SH, LIPID #### [facility] [address] [place] [address] Dr. Yvan Manzano HDL NORMAL > or = 60 mg/dl - LOW CARDIOVASCULAR RISK <40 mg/dl - HIGH CARDIOVASCULAR RISK Normal [facility] Comment on above: Performed By: #### T SH, LIPID #### [facility] [address] [address] [address] Yvan Manzano LDL CALC NORMAL SEE BELOW Normal [facility] Comment on above: Result Comment: <100 mg/dl OPTIMAL 100 - 129 mg/dl NEAR OR ABOVE OPTIMAL 130 - 159 mg/dl BORDERLINE HIGH 160 - 189 mg/dl HIGH >190 mg/dl VERY HIGH Performed By: #### T SH, LIPID #### [facility] [address] [address] [address] Yvan Manzano Triglyceride [Mass/Vol] 192 mg/dL Critically high <=150 [facility] Comment on above: Performed By: #### T SH, LIPID #### [facility] [address] [place] [address] Dr. Yvan Manzano VLDL CALC 38.4 mg/dL Normal [facility] Comment on above: Performed By: #### T SH, LIPID #### [facility] [address] [address] [address] Yvan Manzano TSHon 01-22-2023 TSH 5.749 uIU/mL Critically high 0.358-3.740 [facility] Comment on above: Performed By: #### T SH, LIPID #### [facility] [address] [place] [address] Dr. Yvan Manzano GLYCOHEMOGLOBIN A1Con 2022 ADA RECOMMENDATION SEE BELOW Normal [facility] Comment on above: Result Comment: ADA RECOMMENDED LIMIT 4.0 - 6.0 ADA THERAPEUTIC TARGET < 7.0 ACTION SUGGESTED > 7.0 Performed By: #### A 1C #### [facility] [address] [address] [address] Yvan Manzano Glucose [Mass/Vol] 137 mg/dL Normal [facility] Comment on above: Performed By: #### A 1C #### [facility] [address] [place] [address] Dr. Yvan Manzano HbA1c (Bld) [Mass fraction] 6.4 % Critically high 4.5-6.2 [facility] Comment on above: Performed By: #### A 1C #### [facility] [address] [place] [address] Dr. Yvan Manzano PROF 14(COMP METB)on 023 Albumin [Mass/Vol] 3.4 g/dL Normal 3.4-5.[address] [facility] Comment on above: Performed By: #### C MP #### [facility] [address] [place] [address] Dr. Yvan Manzano Albumin/Globulin [Mass ratio] 0.9 {ratio} Normal [facility] Comment on above: Performed By: #### C MP #### [facility] [address] [place] [address] Dr. Yvan Manzano ALP [Catalytic activity/Vol] 74 U/L Normal 46-116 [facility] Comment on above: Performed By: #### C MP #### [facility] [address] [place] [address] Dr. Yvan Manzano ALT [Catalytic activity/Vol] 25 U/L Normal 14-59 [facility] Comment on above: Performed By: #### C MP #### [facility] [address] [place] [address] Dr. Yvan Manzano Anion gap [Moles/Vol] 9.4 mmol/L Normal [facility] Comment on above: Performed By: #### C MP #### [facility] [address] [place] [address] Dr. Yvan Manzano AST [Catalytic activity/Vol] 17 U/L Normal 15-37 [facility] Comment on above: Performed By: #### C MP #### [facility] [address] [place] [address] Dr. Yvan Manzano Bilirubin [Mass/Vol] 0.1 mg/dL Critically low 0.2-1.0 [facility] Comment on above: Performed By: #### C MP #### [facility] [address] [place] [address] Dr. Yvan Manzano Calcium [Mass/Vol] 9.2 mg/dL Normal 8.5-10.1 [facility] Comment on above: Performed By: #### C MP #### [facility] [address] [address] [address] Yvan Manzano Chloride [Moles/Vol] 101 mmol/L Normal 98-107 [facility] Comment on above: Performed By: #### C MP #### [facility] [address] [address] [address] Yvan Manzano CO2 [Moles/Vol] 30.4 mmol/L Normal 21.0-32.0 [facility] Comment on above: Performed By: #### C MP #### [facility] [address] [place] [address] Dr. Yvan Manzano Creatinine [Mass/Vol] 0.71 mg/dL Normal 0.55-1.02 [facility] Comment on above: Performed By: #### C MP #### [facility] [address] [place] [address] Dr. Yvan Manzano EGFR-AF NAMIBIAN >60 Normal >=60 [facility] Comment on above: Performed By: #### C MP #### [facility] [address] [place] [address] Dr. Yvan Manzano EGFR-NON AF NAMIBIAN >60 Normal >=60 [facility] Comment on above: Performed By: #### C MP #### [facility] [address] [place] [address] Dr. Yvan Manzano Globulin (S) [Mass/Vol] 4.0 g/dL Normal [facility] Comment on above: Performed By: #### C MP #### [facility] [address] [address] [address] Yvan Manzano Glucose [Mass/Vol] 138 mg/dL Critically high 74-106 [facility] Comment on above: Performed By: #### C MP #### [facility] [address] [place] [address] Dr. Yvan Manzano Potassium [Moles/Vol] 3.8 mmol/L Normal 3.5-5.1 [facility] Comment on above: Performed By: #### C MP #### [facility] [address] [place] [address] Dr. Yvan Manzano Protein [Mass/Vol] 7.4 g/dL Normal 6.4-8.2 [facility] Comment on above: Performed By: #### C MP #### [facility] [address] [address] [address] Yvan Manzano Sodium [Moles/Vol] 137 mmol/L Normal 136-[address] [facility] Comment on above: Performed By: #### C MP #### [facility] [address] [address] [address] Yvan Manzano Urea nitrogen [Mass/Vol] 13.0 mg/dL Normal 7.0-18.0 [facility] Comment on above: Performed By: #### C MP #### [facility] [address] [place] [address] Dr. Yvan Manzano Urea nitrogen/Creatinine [Mass ratio] 18.3 mg/mg Normal [facility] Comment on above: Performed By: #### C MP #### [facility] [address] [address] [address] Yvan Manzano LIPID PROFILEon 03-31-2022 CHOL-HDL RATIO NORM SEE BELOW Normal [facility] Comment on above: Result Comment: 3.3 - 4.4 LOW RISK 4.4 - 7.1 AVERAGE RISK 7.1 - 11.0 MODERATE RISK >11.0 HIGH RISK Performed By: #### C MP, LIPID #### [facility] [address] [place] [address] Dr. Yvan Manzano Cholesterol [Mass/Vol] 229 mg/dL Critically high <=200 [facility] Comment on above: Performed By: #### C MP, LIPID #### [facility] [address] [address] [address] Yvan Manzano Cholesterol in HDL [Mass/Vol] 51 mg/dL Normal 40-60 [facility] Comment on above: Performed By: #### C MP, LIPID #### [facility] [address] [address] [address] Yvan Manzano Cholesterol in LDL [Mass/Vol] 150.4 mg/dL Normal [facility] Comment on above: Performed By: #### C MP, LIPID #### [facility] [address] [address] [address] Yvan Manzano Cholesterol.total/Ch olesterol in HDL [Mass ratio] 4.5 {ratio} Normal [facility] Comment on above: Performed By: #### C MP, LIPID #### [facility] [address] [place] [address] Dr. Yvan Manzano HDL NORMAL > or = 60 mg/dl - LOW CARDIOVASCULAR RISK <40 mg/dl - HIGH CARDIOVASCULAR RISK Normal [facility] Comment on above: Performed By: #### C MP, LIPID #### [facility] [address] [place] [address] Dr. Yvan Manzano LDL CALC NORMAL SEE BELOW Normal [facility] Comment on above: Result Comment: <100 mg/dl OPTIMAL 100 - 129 mg/dl NEAR OR ABOVE OPTIMAL 130 - 159 mg/dl BORDERLINE HIGH 160 - 189 mg/dl HIGH >190 mg/dl VERY HIGH Performed By: #### C MP, LIPID #### [facility] [address] [place] [address] Dr. Yvan Manzano Triglyceride [Mass/Vol] 138 mg/dL Normal <=150 [facility] Comment on above: Performed By: #### C MP, LIPID #### [facility] [address] [place] [address] Dr. Yvan Manzano VLDL CALC 27.6 mg/dL Normal [facility] Comment on above: Performed By: #### C MP, LIPID #### [facility] [address] [place] [address] Dr. Yvan Manzano MICROALB CREAT RATIO RANDOMo n 03-31-2022 mALB 1.4 mg/L Normal <=30.0 [facility] Comment on above: Performed By: #### M CRR #### [facility] [address] [place] [address] Dr. Yvan Manzano MALB CR RATIO 6.0 mg/g Normal 0.0-29.9 [facility] Comment on above: Performed By: #### M CRR #### [facility] [address] [place] [address] Dr. Yilan Manzano MALB CR RATIO RANGE SEE BELOW Normal [facility] Comment on above: Result Comment: NO M ICROALBUMINURIA 0-29 MG/G CLINICAL MICROALBUMINURIA 30-300 MG/G MACROALBUMINURIA >300 MG/G Performed By: #### M CRR #### [facility] [address] [address] [address] Yvan Manzano URINE CREAT 232.88 mg/dL Normal 20.00-300.00 [facility] Comment on above: Performed By: #### M CRR #### [facility] [address] [address] [address] Yvan Manzano PROF 14(COMP METB)on 022 Albumin [Mass/Vol] 3.6 g/dL Normal 3.4-5.[address] [facility] Comment on above: Performed By: #### C MP, LIPID #### [facility] [address] [place] [address] Dr. Yvan Manzano Albumin/Globulin [Mass ratio] 0.9 {ratio} Normal [facility] Comment on above: Performed By: #### C MP, LIPID #### [facility] [address] [address] [address] Yvan Manzano ALP [Catalytic activity/Vol] 63 U/L Normal 46-116 [facility] Comment on above: Performed By: #### C MP, LIPID #### [facility] [address] [address] [address] Yvan Manzano ALT [Catalytic activity/Vol] 33 U/L Normal 14-59 [facility] Comment on above: Performed By: #### C MP, LIPID #### [facility] [address] [address] [address] Yvan Manzano Anion gap [Moles/Vol] 11.7 mmol/L Normal [facility] Comment on above: Performed By: #### C MP, LIPID #### [facility] [address] [address] [address] Yvan Manzano AST [Catalytic activity/Vol] 23 U/L Normal 15-37 [facility] Comment on above: Performed By: #### C MP, LIPID #### [facility] [address] [address] [address] Yvan Manzano Bilirubin [Mass/Vol] 0.2 mg/dL Normal 0.2-1.0 [facility] Comment on above: Performed By: #### C MP, LIPID #### [facility] [address] [address] [address] Yvan Manzano Calcium [Mass/Vol] 9.5 mg/dL Normal 8.5-10.[address] [facility] Comment on above: Performed By: #### C MP, LIPID #### [facility] [address] [address] [address] Yvan Manzano Chloride [Moles/Vol] 102 mmol/L Normal 98-107 [facility] Comment on above: Performed By: #### C MP, LIPID #### [facility] [address] [place] [address] Dr. Yvan Manzano CO2 [Moles/Vol] 28.0 mmol/L Normal 21.0-32.0 [facility] Comment on above: Performed By: #### C MP, LIPID #### [facility] [address] [place] [address] Dr. Yvan Manzano Creatinine [Mass/Vol] 0.71 mg/dL Normal 0.55-1.02 [facility] Comment on above: Performed By: #### C MP, LIPID #### [facility] [address] [place] [address] Dr. Yvan Manzano EGFR-AF NAMIBIAN >60 Normal >=60 [facility] Comment on above: Performed By: #### C MP, LIPID #### [facility] [address] [place] [address] Dr. Yvan Manzano EGFR-NON AF NAMIBIAN >60 Normal >=60 [facility] Comment on above: Performed By: #### C MP, LIPID #### [facility] [address] [place] [address] Dr. Yvan Manzano Globulin (S) [Mass/Vol] 4.0 g/dL Normal [facility] Comment on above: Performed By: #### C MP, LIPID #### [facility] [address] [address] [address] Yvan Manzano Glucose [Mass/Vol] 87 mg/dL Normal 74-106 [facility] Comment on above: Performed By: #### C MP, LIPID #### [facility] [address] [address] [address] Yvan Manzano Potassium [Moles/Vol] 3.7 mmol/L Normal 3.5-5.1 [facility] Comment on above: Performed By: #### C MP, LIPID #### [facility] [address] [address] [address] Yvan Manzano Protein [Mass/Vol] 7.6 g/dL Normal 6.4-8.2 [facility] Comment on above: Performed By: #### C MP, LIPID #### [facility] [address] [address] [address] Yvan Manzano Sodium [Moles/Vol] 138 mmol/L Normal 136-[address] [facility] Comment on above: Performed By: #### C MP, LIPID #### [facility] [address] [address] [address] Yvan Manzano Urea nitrogen [Mass/Vol] 14.0 mg/dL Normal 7.0-18.0 [facility] Comment on above: Performed By: #### C MP, LIPID #### [facility] [address] [address] [address] Yvan Manzano Urea nitrogen/Creatinine [Mass ratio] 19.7 mg/mg Normal [facility] Comment on above: Performed By: #### C MP, LIPID #### [facility] [address] [address] [address] Yvan Manzano XR hip RT min 2V(w/wo pelvis )*on 03-26-2022 XR hip RT min 2V(w/wo pelvis)* [facility] [address] [place] [id number] XRay Report Signed Patient: Tatiana Brewster MR#: [id number] : 1975 Acct:[id number] Age/Sex: 46 / F ADM Date: 03/26/22 Loc: XDCLY Room: Type: [facility] CLI Attending Dr: Mona ALVARADO [...] Michael Harper M.D.03/26/2022 3:38 PM Dictation Location: [place] [address] Transcribed By: [facility] 03/26/22 1538 Dictated By: Michael Harper DO 03/26/22 1534 Signed By: 03/26/22 1538 Normal [facility] XR sacrum coccyx min 2Von XR sacrum coccyx min 2V [facility] [place] [address] XRay Report Signed Patient: Tatiana Brewster MR#: [id number] : 1975 Acct:[id number] Age/Sex: 45 / F ADM Date: 09/29/21 Loc: XDUCLY Room: Type: [facility] CLI Attending Dr: Mona ALVARADO [...] No acute bony injury. Impression dictated by: Lraon Villegas M.D.09/29/2021 4:16 PM Dictation Location: [place] [address] Transcribed By: [facility] 09/29/21 161 Dictated By: Laron Villegas II, MD 09/29/211612 Signed By: 09/29/21 161 [facility] COVID Quick Testingon 2020 Result Negative [facility] Other Vital Signs Date Time Vital Sign Value Performing Clinician Facility 05-03-2023 09:05-0400 Body height 157.48 cm Priyanka Jones Other [facility] Other 05-03-2023 09:05-0400 Body mass index (BMI) [Ratio] 35.02 kg/m2 Priyanka Jones Other [facility] Other 05-03-2023 09:05-0400 Body temperature 97.5 [degF] Priyanka Jones Other [facility] Other 05-03-2023 09:05-0400 Body weight 86.86 kg Priyanka Jones Other [facility] Other 05-03-2023 09:05-0400 Diastolic blood pressure 76 mm[Hg] Priyanka Jones Other [facility] Other 05-03-2023 09:05-0400 Respiratory rate 18 /min Priyanka Jones Other [facility] Other 05-03-2023 09:05-0400 SaO2% (BldA) [Mass fraction] 100 % Priyanka Jones Other [facility] Other 05-03-2023 09:05-0400 Systolic blood pressure 117 mm[Hg] Priyanka Jones Other [facility] Other 11-17-2022 11:30-0500 Body height 157.48 cm Mona Yeungault Other [facility] Other 11-17-2022 11:30-0500 Body mass index (BMI) [Ratio] 35.3 kg/m2 Mona Yeungault Other [facility] Other 11-17-2022 11:30-0500 Body temperature 98.7 [degF] Mona Yeungault Other [facility] Other 11-17-2022 11:30-0500 Body weight 87.54 kg Mona Yeungault Other [facility] Other 11-17-2022 11:30-0500 Respiratory rate 18 /min Mona Yeungault Other [facility] Other 11-17-2022 11:30-0500 SaO2% (BldA) [Mass fraction] 98 % Mona Mikel Other [facility] Other 09-28-2022 16:30-0500 Body height 157.48 cm Mona Mikel Other [facility] Other 09-28-2022 16:30-0500 Body mass index (BMI) [Ratio] 35.3 kg/m2 Mona Mikel Other [facility] Other 09-28-2022 16:30-0500 Body temperature 98 [degF] Mona Morin Other [facility] Other 09-28-2022 16:30-0500 Body weight 87.54 kg Mona Morin Other [facility] Other 09-28-2022 16:30-0500 Diastolic blood pressure 79 mm[Hg] Mona Morin Other [facility] Other 09-28-2022 16:30-0500 Respiratory rate 18 /min Mona Morin Other [facility] Other 09-28-2022 16:30-0500 SaO2% (BldA) [Mass fraction] 98 % Mona Morin Other [facility] Other 09-28-2022 16:30-0500 Systolic blood pressure 130 mm[Hg] Mona Morin Other [facility] Other 07-14-2022 15:00-0400 Body height 157.48 cm Mona Morin Other [facility] Other 07-14-2022 15:00-0400 Body mass index (BMI) [Ratio] 35.66 kg/m2 Mona Morin Other [facility] Other 07-14-2022 15:00-0400 Body weight 88.45 kg Mona Morin Other [facility] Other 07-14-2022 15:00-0400 Diastolic blood pressure 89 mm[Hg] Mona Yeungault Other [facility] Other 07-14-2022 15:00-0400 Respiratory rate 18 /min Mona Morin Other [facility] Other 07-14-2022 15:00-0400 SaO2% (BldA) [Mass fraction] 98 % Mona Morin Other [facility] Other 07-14-2022 15:00-0400 Systolic blood pressure 145 mm[Hg] Mona Morin Other [facility] Other 06-30-2022 12:00-0400 Body height 157.48 cm Mona Morin Other [facility] Other 06-30-2022 12:00-0400 Body mass index (BMI) [Ratio] 35.48 kg/m2 Mona Yeungault Other [facility] Other 06-30-2022 12:00-0400 Body temperature 97.7 [degF] Mona Morin Other [facility] Other 06-30-2022 12:00-0400 Body weight 88 kg Mona Morin Other [facility] Other 06-30-2022 12:00-0400 Diastolic blood pressure 87 mm[Hg] Mona Moirn Other [facility] Other 06-30-2022 12:00-0400 Respiratory rate 18 /min Mona Yeungault Other [facility] Other 06-30-2022 12:00-0400 SaO2% (BldA) [Mass fraction] 97 % Mona Yeungault Other [facility] Other 06-30-2022 12:00-0400 Systolic blood pressure 136 mm[Hg] Mona Morin Other [facility] Other 02-03-2022 11:00-0400 Body height 157.48 cm Mona Morin Other [facility] Other 02-03-2022 11:00-0400 Body mass index (BMI) [Ratio] 35.84 kg/m2 Mona Morin Other [facility] Other 02-03-2022 11:00-0400 Body temperature 98.2 [degF] Mona Morin Other [facility] Other 02-03-2022 11:00-0400 Body weight 88.91 kg Mona Morin Other [facility] Other 02-03-2022 11:00-0400 Diastolic blood pressure 96 mm[Hg] Mona Morin Other [facility] Other 02-03-2022 11:00-0400 Respiratory rate 18 /min Mona Morin Other [facility] Other 02-03-2022 11:00-0400 SaO2% (BldA) [Mass fraction] 99 % Mona Morin Other [facility] Other 02-03-2022 11:00-0400 Systolic blood pressure 157 mm[Hg] Mona Yeungault Other [facility] Other 08-31-2021 10:00-0500 Body height 157.48 cm Kaylie Echeverria Other [facility] Other 08-31-2021 10:00-0500 Body mass index (BMI) [Ratio] 35.66 kg/m2 Kaylie Ginty Other [facility] Other 08-31-2021 10:00-0500 Body temperature 98.7 [degF] Kaylie Ginty Other [facility] Other 08-31-2021 10:00-0500 Body weight 88.45 kg Kaylie Ginty Other [facility] Other 08-31-2021 10:00-0500 Respiratory rate 18 /min Kaylie Ginty Other [facility] Other 08-31-2021 10:00-0500 SaO2% (BldA) [Mass fraction] 95 % Kaylie Ginty Other [facility] Other Encounters Encounter Date Encounter Type Care Provider Facility Start: 12-24-2023 Telephone encounter Saeid Gooden [facility] Start: 11-04-2023 End: 11-04-2023 ambulatory [facility] Start: 10-26-2023 End: 10-26-2023 ambulatory ELSI AICHHOLZ Not Available Start: 09-13-2023 End: 09-13-2023 ambulatory ELSI AICHHOLZ Not Available Start: 05-03-2023 End: 05-03-2023 ambulatory Priyanka Jones Other [facility] Other Start: 05-03-2023 Office outpatient visit 15 minutes Priyanka Jones [facility] Start: 01-22-2023 End: 01-23-2023 ambulatory MONA MORIN Facility: Start: 11-23-2022 End: 11-23-2022 ambulatory Mona Morin Other [facility] Other Start: 11-23-2022 Telephone encounter Mona Palmerl t [facility] Start: 11-20-2022 End: 11-20-2022 ambulatory Mona Morin Other [facility] Other Start: 11-20-2022 Encounter by juan treviño Mona Morin [facility] Start: 11-17-2022 End: 11-18-2022 ambulatory MONA MORIN [employer] Other Start: 11-17-2022 Office outpatient visit 15 minutes Monamonty Morin [facility] Start: 10-06-2022 End: 10-06-2022 ambulatory Mona Morin Other [facility] Other Start: 10-06-2022 Telephone encounter Mona Palmerl t [facility] Start: 09-29-2022 End: 09-29-2022 ambulatory PHYSICIAN NO [facility] Work Phone: Start: 09-29-2022 End: 09-29-2022 Departed Referred PHYSICIAN NO [facility] [place] Work Phone: Start: 09-28-2022 End: 09-28-2022 ambulatory Mona Morin Other [facility] Other Start: 09-28-2022 Office outpatient visit 15 minutes Mona Morin [facility] Start: 09-14-2022 End: 09-14-2022 ambulatory Mona Morin Other [facility] Other Start: 09-14-2022 Telephone encounter Mona Breaul t [facility] Start: 07-14-2022 End: 07-14-2022 ambulatory Mona Mikel Other [facility] Other Start: 07-14-2022 Office outpatient visit 15 minutes Mona Mikel [facility] Start: 06-30-2022 End: 06-30-2022 ambulatory Mona Mikel Other [facility] Other Start: 06-30-2022 Office outpatient visit 15 minutes Mona Mikel [facility] Start: 04-02-2022 End: 04-02-2022 ambulatory Mona Mikel Other [facility] Other Start: 04-02-2022 Telephone encounter Mona Breaul t [facility] Start: 03-31-2022 Telephone encounter Mona Breaul t [facility] Start: 03-31-2022 End: 04-01-2022 ambulatory MONA MIKEL [employer] Other Start: 02-03-2022 End: 02-03-2022 ambulatory Mona Mikel Other [facility] Other Start: 02-03-2022 Office outpatient visit 15 minutes Mona Mikel [facility] Start: 12-10-2021 End: 12-10-2021 ambulatory Mona Mikel Other [facility] Other Start: 12-10-2021 Telephone encounter Mona Breaul t [facility] Start: 11-10-2021 End: 11-10-2021 ambulatory Mona Mikel Other [facility] Other Start: 11-10-2021 Telephone encounter Mona Breaul t [facility] Start: 09-03-2021 End: 09-03-2021 ambulatory Kaylie Ginty Other [facility] Other Start: 09-03-2021 Telephone encounter Kaylie Echeverria [facility] Start: 08-31-2021 End: 08-31-2021 ambulatory Kaylie Echeverria Other [facility] Other Start: 08-31-2021 Office outpatient visit 15 minutes Kaylie Echeverria [facility] Procedures Date Procedure Procedure Detail Performing Clinician Start: 10-11-2017 Mammography Saeid hogue CMA Start: 02-05-2017 Microscopic observat ion [Identifier] in Cervix by Cyto stain Saeid Gooden CMA Plan of Treatment Date Care Activity Detail Author Start: 05-26-2024 Adult BMI Screening Adult BMI Screen ing [facility] Start: 05-26-2024 Tobacco Screening Tobacco Screening [facility] Start: 05-28-2023 Influenza vaccination Influenza Vacc ine [facility] Start: 09-29-2022 Aerobic Culture Aerobic Culture [facility] Start: 09-29-2022 Anaerobic Culture Anaerobic Culture [facility] Start: 09-29-2022 Microscopic observat ion [Identifier] in Unspecified specimen by Gram stain Gram Stain [facility] Start: 02-06-2020 Screening for malign ant neoplasm of cervix Pap Smear [facility] Start: 10-11-2018 Screening for malign ant neoplasm of breast Mammogram [facility] Start: 12-06-1995 DTaP,Tdap and Td Vaccines (1 - Tdap) DTaP,Tdap and Td Vaccines (1 - Tdap) [facility] Start: 1994 Adult BMI Follow Up Plan Adult BMI Follow Up Plan [facility] Start: 1988 Depression Screening Depression Scre ening [facility] Bacteria identified in Unspecified specimen by Aerobe culture [facility] Bacteria identified in Unspecified specimen by Anaerobe culture [facility] Immunizations Immunization Date Immunization Notes Care Provider Fa cility 10-01-2020 influenza virus vacc ine, unspecified formulation Saeid Gooden [facility] Payers Date Payer Category Payer Medicaid [id number] 2022 Medicaid [place] [id number] 2022-Present [address] [place] [address] [id number] 2017 Unknown ANTHEM BCBS OUT OF STATE PPO/TRUST [id number] 2017-Present [phone] [address] [place] [address] [id number] 1976 Unknown [id number] 93 1976 Unknown [id number] 93 1976 Unknown [id number] 93 1976 Unknown [id number] 1976 Unknown [id number] 1976 Unknown [id number] 1959 Unknown [id number] 1959 Unknown [id number] Blue Cross Blue Shield [id number] Self-pay Self Pay [id number] Unknown [id number] Social History Date Type Detail Facility Unknown if ever smoked [facility] Other Start: 11-06-2020 End: 05-26-2023 Sex Assigned At [facility] [employer] Other Start: 1975 Sex Assigned At Female F [facility] Start: 08-23-2017 Tobacco smoking stat us NHIS Never smoked tobacco [facility] Start: 08-23-2017 Tobacco use and exposure Smokeless tobacco non-user [facility] Start: 05-26-2023 Alcohol intake 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 documented in this encounter [facility] 12-24-2023 Telephone encount er Note Attempted to contact patient to reschedule appointment on 05/31/[address] Verdugo is out of the office. No Vm set up to leave a message. [facility] 05-03-2023 Evaluation note Encounter Date Diagnosis Assessment [...] fever. Patient/Parent verbalized understanding of treatment plan. [facility] Other 02-21-2023 Evaluation note* Encounter Date Diagnosis [...] weeks for the cough to go away [facility] Other 01-02-2023 Evaluation note* Encounter Date Diagnosis [...] obtained for C&S. Will call with results. [facility] Other 12-19-2022 Evaluation note* Encounter Date Diagnosis Assessment Notes Treatment Notes Treatment Clinical Notes Aug, Gastroesophageal ref lux disease, unspecified whether esophagitis present (ICD-10 - K21.9) Aug, PCOS (polycystic ovarian syndrome) (ICD-10 - E28.2) [facility] Other 10-18-2022 Evaluation note* Encounter Date Diagnosis Assessment Notes Treatment Notes Treatment Clinical Notes Jun, Fibromyalgia (ICD-10 - M79.7) Continue current treatment regimen. Printed off script to use as needed [facility] Other 10-04-2022 Evaluation note* Encounter Date Diagnosis Assessment Notes Treatment Notes Treatment Clinical Notes Jun, Primary hypertension (ICD-10 - I10) Jun, SJ (generalized anxiety disorder) (ICD-10 - F41.1) [facility] Other 07-07-2022 Evaluation note* Encounter Date Diagnosis Assessment Notes Treatment Notes Treatment Clinical Notes Mar, Right hip pain (ICD-10 - M25.551) [facility] Other 05-10-2022 Evaluation note* Encounter Date Diagnosis Assessment Notes Treatment Notes Treatment Clinical Notes January, Gastroesophageal ref lux disease, unspecified whether esophagitis present (ICD-10 - K21.9) Continue to take medication as directed. January, PCOS (polycystic ovarian syndrome) (ICD-10 - E28.2) Take medication as directed with food [facility] Other 03-16-2022 Evaluation note* Encounter Date Diagnosis Assessment Notes Treatment Notes Treatment Clinical Notes Nov, Sacral back pain (ICD-10 - M53.3) [facility] Other 02-14-2022 Evaluation note* Encounter Date Diagnosis Assessment Notes Treatment Notes Treatment Clinical Notes Oct, Gastroesophageal ref lux disease, unspecified whether esophagitis present (ICD-10 - K21.9) [facility] Other 02-14-2022 Evaluation note* Encounter Date Diagnosis Assessment Notes Treatment Notes Treatment Clinical Notes Oct, Sacral back pain (ICD-10 - M53.3) [facility] Other 2021 Evaluation note* Encounter Date Diagnosis [...] Patient care instructions given in writting by [facility] document. [facility] Other Evaluation noteNo InformationNort [employer] Other Evaluation noteNo assessment information available [facility] Work Phone: History general Narrative - Reported* Type Description Date Medical History asthma Medical History pcos Medical History Fibromyalgia Medical History Hypothyroidism - euthyroid Medical History chronic fatigue Surgical History gall bladder Surgical History vein removed in bilaterally Surgical History gastric sleeve Hospitalization History see above Hospitalization History CHILD X'S 5 [facility] Other InstructionsNot on filedocumented in this encounter [facility] SystemReason for visit NarrativeDermatology Referral Update [facility] Other Summary Purpose Family History No Family [...] section and content) DATE CREATED AUTHOR 03/27/2022 [facility] DATE CREATED AUTHOR AUTHOR'S ORGANIZ ATION 01/29/2023 [facility] DATE CREATED AUTHOR AUTHOR'S ORGANIZ ATION 10/27/2023 [facility] EPIC DATE CREATED AUTHOR AUTHOR'S ORGANIZ ATION 11/08/2023 [facility] Care Teams (unrecognized sec tion and content) Team Status: Inactive Member Role Status Dates PHYSICIAN NO FAMILY Primary Care Provider Active CHRISTIANO Jha Attending Provider Active Team Status: Active Member Role Status Dates PHYSICIAN NO FAMILY Primary Care Provider Active 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 [employer] [facility]. provides no warranty or guarantee of the accuracy or completeness of information in this document.
[2024-01-10] MEDS: LIDOCAINE HCL 1% 100 MG/10 ML MDV INJ (09:14)
[2024-01-10] MEDS: 0.9 % SODIUM CHLORIDE 500 ML, LIDOCAINE HCL 20 ML, SODIUM BICARBONATE 10 MEQ INJ (09:15)
== END 2024-01-10 09:01 | disposition home or self-care (01) ==
LOC: VC 09:00
PROVIDERS: PCP Radiology Diagnostic Radiology; Visit Provider Radiology Diagnostic Radiology
DX: I83.813 Varicose veins of bilateral lower extremities with pain (principal)
CPT/HCPCS: 36478

== ENCOUNTER 2024-01-11 21:29 | Emergency (ER) | payer BC, MEDICAID, SELFPAY ==
[2024-01-11 21:35] VITALS: BP 119/74; PULSE 73; TEMP 36.7; O2SAT 96; BMI 36.2
--- OUTSIDE RECORDS SUMMARY | 2024-01-11 21:46 | XMS_ITS | CCD ---
Author Organization [facility] Care Team Providers Care Radiation Protection Technician Name Role Phone Kayile Echeverria Unavailable Mona Morin Unavailable NO FAMILY, PHYSICIAN Primary Care Provider CHRISTIANO Ward Attending Provider MONA MORIN Primary Care Unavailable MISC, DR ELIAS Attending Unavailable MISC, DR ELIAS Admitting Unavailable ERICK, MAILING MANAGER LESI Consulting Unavailable MONA MORIN Consulting Unavailable MONA MORIN Primary Care Unavailable MONA OMRIN Admitting Unavailable MONA MORIN Attending Unavailable MONA MORIN Primary Care Unavailable MIKEL, MONA Admitting Unavailable MONA MORIN Attending Unavailable MONA MORIN Consulting Unavailable Priyanka Jones Unavailable ELSI SUAREZ Attending Unavailable ELSI SUAREZ Attending Unavailable TD BERUMEN Attending Unavailable MONA MORIN Referring Unavailable MONA MORIN Primary Care Unavailable Mikel SIGNING AGENT-BRENT, Mona Primary Care Provide r Allergies Allergy Classification Reported Allergen(s) Allergy Type Date of Onset Reaction(s) Facility (5 sources) Cephalexin Drug Allergy rash [facility] Other (12 sources) Cephalexin Drug Allergy rash [facility] Other (1 source) Sulfamethoxazole / Trimethoprim Drug Allergy 3 [facility] Repository Medications Current Medications Medication Drug Class(es) Dates Sig (Normalized) Sig (Original) [id number] 200 actuat albuterol 0.09 mg/actuat metered dose [...] oral solution (2 sources) alpha-Adrenergic Agonist, Uncompetitive N-lpubil-V-aspartate Receptor Antagonist, Sigma-1 Agonist Start: 08-31-2021 take [...] pyogenes Org specific cx Ql (Throat) Negative [facility] Other Quick Strep [facility] Other INSULINon 01-26-2023 Insulin 21.3 uIU/mL Normal 2.6-24.9 [facility] Comment on above: Performed By: #### I NSULIN #### [facility] [address] [place] [address] Dr. Yvan Manzano CORTISOLon 01-23-2023 Cortisol 11.2 ug/dL Normal 6.2-19.4 [facility] Comment on above: Result Comment: [place] Note: The reference interval and flagging for this test is for an AM collection. If this is a PM collection please use: Cortisol PM: 2.3-11.9 [facility] also offers: [id number]: Cortisol- AM 674205: Cortisol- PM Performed By: #### C BC #### [facility] [address] [place] [address] Dr. Yvan Manzano CBC AUTO DIFFon 01-22-2023 BASO # 0.1 103/ul Normal 0.0-0.1 [facility] Comment on above: Performed By: #### C BC #### [facility] [address] [place] [address] Dr. vYan Manzano Basophils/100 WBC (Bld) 0.9 % Normal 0.2-2.0 [facility] Comment on above: Performed By: #### C BC #### [facility] [address] [place] [address] Dr. Yvan Manzano EO # 0.3 103/ul Normal 0.0-0.7 [facility] Comment on above: Performed By: #### C BC #### [facility] [address] [place] [address] Dr. Yvan Manzano Eosinophils/100 WBC (Bld) 5.7 % Normal 0.9-7.0 [facility] Comment on above: Performed By: #### C BC #### [facility] [address] [place] [address] Dr. Yvan Manzano Erythrocyte distribution width (RBC) [Ratio] 14.6 % Normal 11.0-15.0 [facility] Comment on above: Performed By: #### C BC #### [facility] [address] [place] [address] Dr. Yvan Manzano Hematocrit (Bld) [Volume fraction] 36.8 % Normal 36.0-48.0 [facility] Comment on above: Performed By: #### C BC #### [facility] [address] [place] [address] Dr. Yvan Manzano Hemoglobin (Bld) [Mass/Vol] 11.4 g/dL Critically low 12.0-16.0 [facility] Comment on above: Performed By: #### C BC #### [facility] [address] [address] [address] Yvan Manzano IG # 0.02 10e3/ul Normal 0.00-0.03 [facility] Comment on above: Performed By: #### C BC #### [facility] [address] [place] [address] Dr. Yvan Manzano IG % 0.3 % Normal 0.0-0.5 [facility] Comment on above: Performed By: #### C BC #### [facility] [address] [place] [address] Dr. Yvan Manzano LYMPH # 1.5 103/ul Normal 1.2-3.8 [facility] Comment on above: Performed By: #### C BC #### [facility] [address] [place] [address] Dr. Yvan Manzano Lymphocytes/100 WBC (Bld) 25.3 % Normal 20.5-60.0 [facility] Comment on above: Performed By: #### C BC #### [facility] [address] [place] [address] Dr. Yvan Manzano MANUAL DIFF REQ NO Normal [facility] Comment on above: Performed By: #### C BC #### [facility] [address] [place] [address] Dr. Yvan Manzano MCH (RBC) [Entitic mass] 25.2 pg Critically low 26.7-34.0 [facility] Comment on above: Performed By: #### C BC #### [facility] [address] [place] [address] Dr. Yvan Manzano MCHC (RBC) [Mass/Vol] 31.0 g/dL Normal 29.9-35.2 [facility] Comment on above: Performed By: #### C BC #### [facility] [address] [place] [address] Dr. Yvan Manzano MCV (RBC) [Entitic vol] 81.4 fL Normal 81.0-99.0 [facility] Comment on above: Performed By: #### C BC #### [facility] [address] [place] [address] Dr. Yvan Manzano MONO # 0.4 103/ul Normal 0.3-0.8 [facility] Comment on above: Performed By: #### C BC #### [facility] [address] [place] [address] Dr. Yvan Manzano Monocytes/100 WBC (Bld) 7.7 % Normal 1.7-12.0 [facility] Comment on above: Performed By: #### C BC #### [facility] [address] [place] [address] Dr. Yvan Manzano NEUT # 3.5 103/ul Normal 1.4-6.5 [facility] Comment on above: Performed By: #### C BC #### [facility] [address] [place] [address] Dr. Yvan Manzano Neutrophils/100 WBC (Bld) 60.1 % Normal 43.0-75.0 [facility] Comment on above: Performed By: #### C BC #### [facility] [address] [place] [address] Dr. Yvan Manzano Platelet mean volume (Bld) [Entitic vol] 8.8 fL Critically low 9.5-13.5 [facility] Comment on above: Performed By: #### C BC #### [facility] [address] [place] [address] Dr. Yvan Manzano PLT 347 103/ul Normal 150-450 [facility] Comment on above: Performed By: #### C BC #### [facility] [address] [place] [address] Dr. Yvan Manzano RBC 4.52 106/ul Normal 4.20-5.40 [facility] Comment on above: Performed By: #### C BC #### [facility] [address] [place] [address] Dr. Yvan Manzano WBC 5.7 103/ul Normal 4.0-11.0 [facility] Comment on above: Performed By: #### C BC #### [facility] [address] [address] [address] Yvan Manzano FREE T4on 01-22-2023 Free T4 [Mass/Vol] 0.84 ng/dL Normal 0.76-1.[address] [facility] Comment on above: Performed By: #### F T4 #### [facility] [address] [address] [address] Yvan Manzano LIPID PROFILEon 01-22-2023 CHOL-HDL RATIO NORM SEE BELOW Normal [facility] Comment on above: Result Comment: 3.3 - 4.4 LOW RISK 4.4 - 7.1 AVERAGE RISK 7.1 - 11.0 MODERATE RISK >11.0 HIGH RISK Performed By: #### T SH, LIPID #### [facility] [address] [place] [address] Dr. Yvan Manzano Cholesterol [Mass/Vol] 264 mg/dL Critically high <=200 [facility] Comment on above: Performed By: #### T SH, LIPID #### [facility] [address] [place] [address] Dr. Yvan Manzano Cholesterol in HDL [Mass/Vol] 52 mg/dL Normal 40-60 [facility] Comment on above: Performed By: #### T SH, LIPID #### [facility] [address] [address] [address] Yvan Manzano Cholesterol in LDL [Mass/Vol] 173.6 mg/dL Normal [facility] Comment on above: Performed By: #### T SH, LIPID #### [facility] [address] [place] [address] Dr. Yvan Manzano Cholesterol.total/Ch olesterol in HDL [Mass ratio] 5.1 {ratio} Normal [facility] Comment on above: Performed By: #### T SH, LIPID #### [facility] [address] [place] [address] Dr. Yvan Manzano HDL NORMAL > or = 60 mg/dl - LOW CARDIOVASCULAR RISK <40 mg/dl - HIGH CARDIOVASCULAR RISK Normal [facility] Comment on above: Performed By: #### T SH, LIPID #### [facility] [address] [address] [address] Yvan Manzano LDL CALC NORMAL SEE BELOW Normal [facility] Comment on above: Result Comment: <100 mg/dl OPTIMAL 100 - 129 mg/dl NEAR OR ABOVE OPTIMAL 130 - 159 mg/dl BORDERLINE HIGH 160 - 189 mg/dl HIGH >190 mg/dl VERY HIGH Performed By: #### T SH, LIPID #### [facility] [address] [address] [address] Yvan Manzano Triglyceride [Mass/Vol] 192 mg/dL Critically high <=150 [facility] Comment on above: Performed By: #### T SH, LIPID #### [facility] [address] [place] [address] Dr. Yvan Manzano VLDL CALC 38.4 mg/dL Normal [facility] Comment on above: Performed By: #### T SH, LIPID #### [facility] [address] [address] [address] Yvan Manzano TSHon 01-22-2023 TSH 5.749 uIU/mL Critically high 0.358-3.740 [facility] Comment on above: Performed By: #### T SH, LIPID #### [facility] [address] [place] [address] Dr. Yvan Manzano GLYCOHEMOGLOBIN A1Con 2022 ADA RECOMMENDATION SEE BELOW Normal [facility] Comment on above: Result Comment: ADA RECOMMENDED LIMIT 4.0 - 6.0 ADA THERAPEUTIC TARGET < 7.0 ACTION SUGGESTED > 7.0 Performed By: #### A 1C #### [facility] [address] [address] [address] Yvan Manzano Glucose [Mass/Vol] 137 mg/dL Normal [facility] Comment on above: Performed By: #### A 1C #### [facility] [address] [place] [address] Dr. Yvan Manzano HbA1c (Bld) [Mass fraction] 6.4 % Critically high 4.5-6.2 [facility] Comment on above: Performed By: #### A 1C #### [facility] [address] [place] [address] Dr. Yvan Manzano PROF 14(COMP METB)on 023 Albumin [Mass/Vol] 3.4 g/dL Normal 3.4-5.[address] [facility] Comment on above: Performed By: #### C MP #### [facility] [address] [place] [address] Dr. Yvan Manzano Albumin/Globulin [Mass ratio] 0.9 {ratio} Normal [facility] Comment on above: Performed By: #### C MP #### [facility] [address] [place] [address] Dr. Yvan Manzano ALP [Catalytic activity/Vol] 74 U/L Normal 46-116 [facility] Comment on above: Performed By: #### C MP #### [facility] [address] [place] [address] Dr. Yvan Manzano ALT [Catalytic activity/Vol] 25 U/L Normal 14-59 [facility] Comment on above: Performed By: #### C MP #### [facility] [address] [place] [address] Dr. Yvan Manzano Anion gap [Moles/Vol] 9.4 mmol/L Normal [facility] Comment on above: Performed By: #### C MP #### [facility] [address] [place] [address] Dr. Yvan Manzano AST [Catalytic activity/Vol] 17 U/L Normal 15-37 [facility] Comment on above: Performed By: #### C MP #### [facility] [address] [place] [address] Dr. Yvan Manzano Bilirubin [Mass/Vol] 0.1 mg/dL Critically low 0.2-1.0 [facility] Comment on above: Performed By: #### C MP #### [facility] [address] [place] [address] Dr. Yvan Manzano Calcium [Mass/Vol] 9.2 mg/dL Normal 8.5-10.1 [facility] Comment on above: Performed By: #### C MP #### [facility] [address] [address] [address] Yvan Manzano Chloride [Moles/Vol] 101 mmol/L Normal 98-107 [facility] Comment on above: Performed By: #### C MP #### [facility] [address] [address] [address] Yvan Manzano CO2 [Moles/Vol] 30.4 mmol/L Normal 21.0-32.[address] [facility] Comment on above: Performed By: #### C MP #### [facility] [address] [place] [address] Dr. Yvan Manzano Creatinine [Mass/Vol] 0.71 mg/dL Normal 0.55-1.02 [facility] Comment on above: Performed By: #### C MP #### [facility] [address] [place] [address] Dr. Yvan Manzano EGFR-AF TUVALUAN >60 Normal >=[address] [facility] Comment on above: Performed By: #### C MP #### [facility] [address] [place] [address] Dr. Yvan Manzano EGFR-NON AF TUVALUAN >60 Normal >=60 [facility] Comment on above: Performed By: #### C MP #### [facility] [address] [place] [address] Dr. Yvan Manzano Globulin (S) [Mass/Vol] 4.0 g/dL Normal [facility] Comment on above: Performed By: #### C MP #### [facility] [address] [address] [address] Yvan Manzano Glucose [Mass/Vol] 138 mg/dL Critically high 74-106 [facility] Comment on above: Performed By: #### C MP #### [facility] [address] [place] [address] Dr. Yvan Manzano Potassium [Moles/Vol] 3.8 mmol/L Normal 3.5-5.1 [facility] Comment on above: Performed By: #### C MP #### [facility] [address] [place] [address] Dr. Yvan Manzano Protein [Mass/Vol] 7.4 g/dL Normal 6.4-8.2 [facility] Comment on above: Performed By: #### C MP #### [facility] [address] [address] [address] Yvan Manzano Sodium [Moles/Vol] 137 mmol/L Normal 136-[address] [facility] Comment on above: Performed By: #### C MP #### [facility] [address] [address] [address] Yvan Manzano Urea nitrogen [Mass/Vol] 13.0 mg/dL Normal 7.0-18.0 [facility] Comment on above: Performed By: #### C MP #### [facility] [address] [place] [address] Dr. Yvan Manzano Urea nitrogen/Creatinine [Mass ratio] 18.3 mg/mg Normal [facility] Comment on above: Performed By: #### C MP #### [facility] [address] [address] [address] Yvan Manzano LIPID PROFILEon 03-31-2022 CHOL-HDL RATIO NORM SEE BELOW Normal [facility] Comment on above: Result Comment: 3.3 - 4.4 LOW RISK 4.4 - 7.1 AVERAGE RISK 7.1 - 11.0 MODERATE RISK >11.0 HIGH RISK Performed By: #### C MP, LIPID #### [facility] [address] [place] [address] Dr. Yvan Manzano Cholesterol [Mass/Vol] 229 mg/dL Critically high <=200 [facility] Comment on above: Performed By: #### C MP, LIPID #### [facility] [address] [address] [address] Yvan Manzano Cholesterol in HDL [Mass/Vol] 51 mg/dL Normal 40-60 [facility] Comment on above: Performed By: #### C MP, LIPID #### [facility] [address] [address] [address] Yvan Manzano Cholesterol in LDL [Mass/Vol] 150.4 mg/dL Normal [facility] Comment on above: Performed By: #### C MP, LIPID #### [facility] [address] [address] [address] Yvan Manzano Cholesterol.total/Ch olesterol in HDL [Mass ratio] 4.5 {ratio} Normal [facility] Comment on above: Performed By: #### C MP, LIPID #### [facility] [address] [place] [address] Dr. Yvan Manzano HDL NORMAL > or = 60 mg/dl - LOW CARDIOVASCULAR RISK <40 mg/dl - HIGH CARDIOVASCULAR RISK Normal [facility] Comment on above: Performed By: #### C MP, LIPID #### [facility] [address] [place] [address] Dr. Yvan Manzano LDL CALC NORMAL SEE BELOW Normal [facility] Comment on above: Result Comment: <100 mg/dl OPTIMAL 100 - 129 mg/dl NEAR OR ABOVE OPTIMAL 130 - 159 mg/dl BORDERLINE HIGH 160 - 189 mg/dl HIGH >190 mg/dl VERY HIGH Performed By: #### C MP, LIPID #### [facility] [address] [place] [address] Dr. Yvan Manzano Triglyceride [Mass/Vol] 138 mg/dL Normal <=150 [facility] Comment on above: Performed By: #### C MP, LIPID #### [facility] [address] [place] [address] Dr. Yvan Manzano VLDL CALC 27.6 mg/dL Normal [facility] Comment on above: Performed By: #### C MP, LIPID #### [facility] [address] [place] [address] Dr. Yvan Manzano MICROALB CREAT RATIO RANDOMo n 03-31-2022 mALB 1.4 mg/L Normal <=30.0 [facility] Comment on above: Performed By: #### M CRR #### [facility] [address] [place] [address] Dr. Yvan Manzano MALB CR RATIO 6.0 mg/g Normal 0.0-29.9 [facility] Comment on above: Performed By: #### M CRR #### [facility] [address] [place] [address] Dr. Yilan Manzano MALB CR RATIO RANGE SEE BELOW Normal [facility] Comment on above: Result Comment: NO M ICROALBUMINURIA 0-29 MG/G CLINICAL MICROALBUMINURIA 30-300 MG/G MACROALBUMINURIA >300 MG/G Performed By: #### M CRR #### [facility] [address] [address] [address] Yvan Manzano URINE CREAT 232.88 mg/dL Normal 20.00-300.00 [facility] Comment on above: Performed By: #### M CRR #### [facility] [address] [address] [address] Yvan Manzano PROF 14(COMP METB)on 022 Albumin [Mass/Vol] 3.6 g/dL Normal 3.4-5.[address] [facility] Comment on above: Performed By: #### C MP, LIPID #### [facility] [address] [place] [address] Dr. Yvan Manzano Albumin/Globulin [Mass ratio] 0.9 {ratio} Normal [facility] Comment on above: Performed By: #### C MP, LIPID #### [facility] [address] [address] [address] Yvan Manzano ALP [Catalytic activity/Vol] 63 U/L Normal 46-116 [facility] Comment on above: Performed By: #### C MP, LIPID #### [facility] [address] [address] [address] Yvan Manzano ALT [Catalytic activity/Vol] 33 U/L Normal 14-59 [facility] Comment on above: Performed By: #### C MP, LIPID #### [facility] [address] [address] [address] Yvan Manzano Anion gap [Moles/Vol] 11.7 mmol/L Normal [facility] Comment on above: Performed By: #### C MP, LIPID #### [facility] [address] [address] [address] Yvan Manzano AST [Catalytic activity/Vol] 23 U/L Normal 15-37 [facility] Comment on above: Performed By: #### C MP, LIPID #### [facility] [address] [address] [address] Yvan Manzano Bilirubin [Mass/Vol] 0.2 mg/dL Normal 0.2-1.0 [facility] Comment on above: Performed By: #### C MP, LIPID #### [facility] [address] [address] [address] Yvan Manzano Calcium [Mass/Vol] 9.5 mg/dL Normal 8.5-10.[address] [facility] Comment on above: Performed By: #### C MP, LIPID #### [facility] [address] [address] [address] Yvan Manzano Chloride [Moles/Vol] 102 mmol/L Normal 98-107 [facility] Comment on above: Performed By: #### C MP, LIPID #### [facility] [address] [place] [address] Dr. Yvan Manzano CO2 [Moles/Vol] 28.0 mmol/L Normal 21.0-32.0 [facility] Comment on above: Performed By: #### C MP, LIPID #### [facility] [address] [place] [address] Dr. Yvan Manzano Creatinine [Mass/Vol] 0.71 mg/dL Normal 0.55-1.02 [facility] Comment on above: Performed By: #### C MP, LIPID #### [facility] [address] [place] [address] Dr. Yvan Manzano EGFR-AF TUVALUAN >60 Normal >=[address] [facility] Comment on above: Performed By: #### C MP, LIPID #### [facility] [address] [place] [address] Dr. Yvan Manzano EGFR-NON AF TUVALUAN >60 Normal >=60 [facility] Comment on above: Performed By: #### C MP, LIPID #### [facility] [address] [place] [address] Dr. Yvan Manzano Globulin (S) [Mass/Vol] 4.0 g/dL Normal [facility] Comment on above: Performed By: #### C MP, LIPID #### [facility] [address] [address] [address] Yvan Manzano Glucose [Mass/Vol] 87 mg/dL Normal 74-106 [facility] Comment on above: Performed By: #### C MP, LIPID #### [facility] [address] [address] [address] Yvan Manzano Potassium [Moles/Vol] 3.7 mmol/L Normal 3.5-5.1 [facility] Comment on above: Performed By: #### C MP, LIPID #### [facility] [address] [address] [address] Yvan Manzano Protein [Mass/Vol] 7.6 g/dL Normal 6.4-8.2 [facility] Comment on above: Performed By: #### C MP, LIPID #### [facility] [address] [address] [address] Yvan Manzano Sodium [Moles/Vol] 138 mmol/L Normal 136-[address] [facility] Comment on above: Performed By: #### C MP, LIPID #### [facility] [address] [address] [address] Yvan Manzano Urea nitrogen [Mass/Vol] 14.0 mg/dL Normal 7.0-18.0 [facility] Comment on above: Performed By: #### C MP, LIPID #### [facility] [address] [address] [address] Yvan Manzano Urea nitrogen/Creatinine [Mass ratio] 19.7 mg/mg Normal [facility] Comment on above: Performed By: #### C MP, LIPID #### [facility] [address] [address] [address] Yvan Manzano XR hip RT min 2V(w/wo pelvis )*on 03-26-2022 XR hip RT min 2V(w/wo pelvis)* [facility] [address] [place] [id number] XRay Report Signed Patient: Tatiana Brewster MR#: [id number] : 1975 Acct:[id number] Age/Sex: 46 / F ADM Date: 03/26/22 Loc: XDCLY Room: Type: [facility] CLI Attending Dr: Mona ALVARADO Copies [...] Michael Harper M.D.03/26/2022 3:38 PM Dictation Location: [place] [address] Transcribed By: [facility] 03/26/22 1538 Dictated By: Michael Harper DO 03/26/22 1534 Signed By: 03/26/22 1538 Normal [facility] XR sacrum coccyx min 2Von XR sacrum coccyx min 2V [facility] [place] [address] XRay Report Signed Patient: Tatiana Brewster MR#: [id number] : 1975 Acct:[id number] Age/Sex: 45 / F ADM Date: 09/29/21 Loc: XDUCLY Room: Type: [facility] CLI Attending Dr: Mona ALVARADO Ordering [...] Laron Villegas M.D.09/29/2021 4:16 PM Dictation Location: [place] [address] Transcribed By: [facility] 09/29/21 161 Dictated By: Laron Villegas II, MD 09/29/211612 Signed By: 09/29/21 161 [facility] COVID Quick Testingon 2020 Result Negative [facility] Other Vital Signs Date Time Vital Sign Value Performing Clinician Facility 05-03-2023 09:05-0400 Body height 157.48 cm Priyanka Jones Other [facility] Other 05-03-2023 09:05-0400 Body mass index (BMI) [Ratio] 35.02 kg/m2 Priyanka Jones Other [facility] Other 05-03-2023 09:05-0400 Body temperature 97.5 [degF] Priyanka Jones Other [facility] Other 05-03-2023 09:05-0400 Body weight 86.86 kg Priyanka Jones Other [facility] Other 05-03-2023 09:05-0400 Diastolic blood pressure 76 mm[Hg] Priyanka Jones Other [facility] Other 05-03-2023 09:05-0400 Respiratory rate 18 /min Priyanka Jones Other [facility] Other 05-03-2023 09:05-0400 SaO2% (BldA) [Mass fraction] 100 % Priyanka Jones Other [facility] Other 05-03-2023 09:05-0400 Systolic blood pressure 117 mm[Hg] Priyanka Jones Other [facility] Other 11-17-2022 11:30-0500 Body height 157.48 cm Mona Yeungault Other [facility] Other 11-17-2022 11:30-0500 Body mass index (BMI) [Ratio] 35.3 kg/m2 Mona Yeungault Other [facility] Other 11-17-2022 11:30-0500 Body temperature 98.7 [degF] Mona Yeungault Other [facility] Other 11-17-2022 11:30-0500 Body weight 87.54 kg Mona Yeungault Other [facility] Other 11-17-2022 11:30-0500 Respiratory rate 18 /min Mona Yeungault Other [facility] Other 11-17-2022 11:30-0500 SaO2% (BldA) [Mass fraction] 98 % Mona Mikel Other [facility] Other 09-28-2022 16:30-0500 Body height 157.48 cm Mona Mikel Other [facility] Other 09-28-2022 16:30-0500 Body mass index (BMI) [Ratio] 35.3 kg/m2 Mona Mikel Other [facility] Other 09-28-2022 16:30-0500 Body temperature 98 [degF] Mona Morin Other [facility] Other 09-28-2022 16:30-0500 Body weight 87.54 kg Mona Morin Other [facility] Other 09-28-2022 16:30-0500 Diastolic blood pressure 79 mm[Hg] Mona Morin Other [facility] Other 09-28-2022 16:30-0500 Respiratory rate 18 /min Mona Morin Other [facility] Other 09-28-2022 16:30-0500 SaO2% (BldA) [Mass fraction] 98 % Mona Morin Other [facility] Other 09-28-2022 16:30-0500 Systolic blood pressure 130 mm[Hg] Mona Morin Other [facility] Other 07-14-2022 15:00-0400 Body height 157.48 cm Mona Morin Other [facility] Other 07-14-2022 15:00-0400 Body mass index (BMI) [Ratio] 35.66 kg/m2 Mona Morin Other [facility] Other 07-14-2022 15:00-0400 Body weight 88.45 kg Mona Morin Other [facility] Other 07-14-2022 15:00-0400 Diastolic blood pressure 89 mm[Hg] Mona Yeungault Other [facility] Other 07-14-2022 15:00-0400 Respiratory rate 18 /min Mona Morin Other [facility] Other 07-14-2022 15:00-0400 SaO2% (BldA) [Mass fraction] 98 % Mona Morin Other [facility] Other 07-14-2022 15:00-0400 Systolic blood pressure 145 mm[Hg] Mona Morin Other [facility] Other 06-30-2022 12:00-0400 Body height 157.48 cm Mona Morin Other [facility] Other 06-30-2022 12:00-0400 Body mass index (BMI) [Ratio] 35.48 kg/m2 Mona Yeungault Other [facility] Other 06-30-2022 12:00-0400 Body temperature 97.7 [degF] Moan Morin Other [facility] Other 06-30-2022 12:00-0400 Body weight 88 kg Mona Morin Other [facility] Other 06-30-2022 12:00-0400 Diastolic blood pressure 87 mm[Hg] Mona Morin Other [facility] Other 06-30-2022 12:00-0400 Respiratory rate 18 /min Mona Yeungault Other [facility] Other 06-30-2022 12:00-0400 SaO2% (BldA) [Mass fraction] 97 % Mona Yeungault Other [facility] Other 06-30-2022 12:00-0400 Systolic blood pressure 136 mm[Hg] Mona Morin Other [facility] Other 02-03-2022 11:00-0400 Body height 157.48 cm Mona Morin Other [facility] Other 02-03-2022 11:00-0400 Body mass index (BMI) [Ratio] 35.84 kg/m2 Mona Morin Other [facility] Other 02-03-2022 11:00-0400 Body temperature 98.2 [degF] Mona Morin Other [facility] Other 02-03-2022 11:00-0400 Body weight 88.91 kg Mona Morin Other [facility] Other 02-03-2022 11:00-0400 Diastolic blood pressure 96 mm[Hg] Mona Morin Other [facility] Other 02-03-2022 11:00-0400 Respiratory rate 18 /min Mona Morin Other [facility] Other 02-03-2022 11:00-0400 SaO2% (BldA) [Mass fraction] 99 % Mona Morin Other [facility] Other 02-03-2022 11:00-0400 Systolic blood pressure 157 mm[Hg] Mona Yeungault Other [facility] Other 08-31-2021 10:00-0500 Body height 157.48 cm Kaylie Echeverria Other [facility] Other 08-31-2021 10:00-0500 Body mass index (BMI) [Ratio] 35.66 kg/m2 Kaylie Ginty Other [facility] Other 08-31-2021 10:00-0500 Body temperature 98.7 [degF] Kaylie Ginty Other [facility] Other 08-31-2021 10:00-0500 Body weight 88.45 kg Kaylie Ginty Other [facility] Other 08-31-2021 10:00-0500 Respiratory rate 18 /min Kaylie Ginty Other [facility] Other 08-31-2021 10:00-0500 SaO2% (BldA) [Mass fraction] 95 % Kaylie Ginty Other [facility] Other Encounters Encounter Date Encounter Type Care Provider Facility Start: 12-24-2023 Telephone encounter Saeid Gooden [facility] Start: 11-04-2023 End: 11-04-2023 ambulatory [facility] Start: 10-26-2023 End: 10-26-2023 ambulatory ELSI AICHHOLZ Not Available Start: 09-13-2023 End: 09-13-2023 ambulatory ELSI AICHHOLZ Not Available Start: 05-03-2023 End: 05-03-2023 ambulatory Priyanka Jones Other [facility] Other Start: 05-03-2023 Office outpatient visit 15 minutes Priyanka Jones [facility] Start: 01-22-2023 End: 01-23-2023 ambulatory MONA MORIN Facility: Start: 11-23-2022 End: 11-23-2022 ambulatory Mona Morin Other [facility] Other Start: 11-23-2022 Telephone encounter Mona Palmerl t [facility] Start: 11-20-2022 End: 11-20-2022 ambulatory Moan Morin Other [facility] Other Start: 11-20-2022 Encounter by juan treviño Mona Morin [facility] Start: 11-17-2022 End: 11-18-2022 ambulatory MONA MORIN [facility] Other Start: 11-17-2022 Office outpatient visit 15 minutes Monamonty Morin [facility] Start: 10-06-2022 End: 10-06-2022 ambulatory Mona Morin Other [facility] Other Start: 10-06-2022 Telephone encounter Mona Palmerl t [facility] Start: 09-29-2022 End: 09-29-2022 ambulatory PHYSICIAN NO [facility] Work Phone: Start: 09-29-2022 End: 09-29-2022 Departed Referred PHYSICIAN NO [facility] [place] Work Phone: Start: 09-28-2022 End: 09-28-2022 ambulatory Mona Morin Other [facility] Other Start: 09-28-2022 Office outpatient visit 15 minutes Mona Morin [facility] Start: 09-14-2022 End: 09-14-2022 ambulatory Mona Morin Other [facility] Other Start: 09-14-2022 Telephone encounter Mona Breaul t [facility] Start: 07-14-2022 End: 07-14-2022 ambulatory Mona Mikel Other [facility] Other Start: 07-14-2022 Office outpatient visit 15 minutes Mona Mikel [facility] Start: 06-30-2022 End: 06-30-2022 ambulatory Mona Mikel Other [facility] Other Start: 06-30-2022 Office outpatient visit 15 minutes Mona Mikel [facility] Start: 04-02-2022 End: 04-02-2022 ambulatory Mona Mikel Other [facility] Other Start: 04-02-2022 Telephone encounter Mona Breaul t [facility] Start: 03-31-2022 Telephone encounter Mona Breaul t [facility] Start: 03-31-2022 End: 04-01-2022 ambulatory MONA MIKEL [facility] Other Start: 02-03-2022 End: 02-03-2022 ambulatory Mona Mikel Other [facility] Other Start: 02-03-2022 Office outpatient visit 15 minutes Mona Mikel [facility] Start: 12-10-2021 End: 12-10-2021 ambulatory Mona Mikel Other [facility] Other Start: 12-10-2021 Telephone encounter Mona Breaul t [facility] Start: 11-10-2021 End: 11-10-2021 ambulatory Mona Mikel Other [facility] Other Start: 11-10-2021 Telephone encounter Mona Breaul t [facility] Start: 09-03-2021 End: 09-03-2021 ambulatory Kaylie Ginty Other [facility] Other Start: 09-03-2021 Telephone encounter Kaylie Echeverria [facility] Start: 08-31-2021 End: 08-31-2021 ambulatory Kaylie Echeverria Other [facility] Other Start: 08-31-2021 Office outpatient visit 15 minutes Kaylie Echeverria [facility] Procedures Date Procedure Procedure Detail Performing Clinician Start: 10-11-2017 Mammography Saeid hogue CMA Start: 02-05-2017 Microscopic observat ion [Identifier] in Cervix by Cyto stain Saeid Gooden CMA Plan of Treatment Date Care Activity Detail Author Start: 05-26-2024 Adult BMI Screening Adult BMI Screen ing [facility] Start: 05-26-2024 Tobacco Screening Tobacco Screening [facility] Start: 05-28-2023 Influenza vaccination Influenza Vacc ine [facility] Start: 09-29-2022 Aerobic Culture Aerobic Culture [facility] Start: 09-29-2022 Anaerobic Culture Anaerobic Culture [facility] Start: 09-29-2022 Microscopic observat ion [Identifier] in Unspecified specimen by Gram stain Gram Stain [facility] Start: 02-06-2020 Screening for malign ant neoplasm of cervix Pap Smear [facility] Start: 10-11-2018 Screening for malign ant neoplasm of breast Mammogram [facility] Start: 12-06-1995 DTaP,Tdap and Td Vaccines (1 - Tdap) DTaP,Tdap and Td Vaccines (1 - Tdap) [facility] Start: 1994 Adult BMI Follow Up Plan Adult BMI Follow Up Plan [facility] Start: 1988 Depression Screening Depression Scre ening [facility] Bacteria identified in Unspecified specimen by Aerobe culture [facility] Bacteria identified in Unspecified specimen by Anaerobe culture [facility] Immunizations Immunization Date Immunization Notes Care Provider Fa cility 10-01-2020 influenza virus vacc ine, unspecified formulation Saeid Gooden [facility] Payers Date Payer Category Payer Medicaid [id number] 2022 Medicaid [place] [id number] 2022-Present [address] [place] [address] [id number] 2017 Unknown ANTHEM BCBS OUT OF STATE PPO/TRUST [id number] 2017-Present [phone] [address] [place] [address] [id number] 1975 Unknown [id number] 1975 Unknown [id number] 93 1975 Unknown [id number] 93 1975 Unknown [id number] 1975 Unknown [id number] 1975 Unknown [id number] 1959 Unknown [id number] 1959 Unknown [id number] Blue Cross Blue Shield [id number] Self-pay Self Pay [id number] Unknown [id number] Social History Date Type Detail Facility Unknown if ever smoked [facility] Other Start: 11-06-2020 End: 05-26-2023 Sex Assigned At [facility] Other Start: 1975 Sex Assigned At Female F [facility] Start: 08-23-2017 Tobacco smoking stat us NHIS Never smoked tobacco [facility] Start: 08-23-2017 Tobacco use and exposure Smokeless tobacco non-user [facility] Start: 05-26-2023 Alcohol intake 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 documented in this encounter [facility] 12-24-2023 Telephone encount er Note Attempted to contact patient to reschedule appointment on 05/31/[address] Verdugo is out of the office. No Vm set up to leave a message. [facility] 05-03-2023 Evaluation note Encounter Date Diagnosis [...] fever. Patient/Parent verbalized understanding of treatment plan. [facility] Other 02-21-2023 Evaluation note* Encounter Date Diagnosis [...] weeks for the cough to go away [facility] Other 01-02-2023 Evaluation note* Encounter Date Diagnosis [...] obtained for C&S. Will call with results. [facility] Other 12-19-2022 Evaluation note* Encounter Date Diagnosis Assessment Notes Treatment Notes Treatment Clinical Notes Aug, Gastroesophageal ref lux disease, unspecified whether esophagitis present (ICD-10 - K21.9) Aug, PCOS (polycystic ovarian syndrome) (ICD-10 - E28.2) [facility] Other 10-18-2022 Evaluation note* Encounter Date Diagnosis Assessment Notes Treatment Notes Treatment Clinical Notes Jun, Fibromyalgia (ICD-10 - M79.7) Continue current treatment regimen. Printed off script to use as needed [facility] Other 10-04-2022 Evaluation note* Encounter Date Diagnosis Assessment Notes Treatment Notes Treatment Clinical Notes Jun, Primary hypertension (ICD-10 - I10) Jun, SJ (generalized anxiety disorder) (ICD-10 - F41.1) [facility] Other 07-07-2022 Evaluation note* Encounter Date Diagnosis Assessment Notes Treatment Notes Treatment Clinical Notes Mar, Right hip pain (ICD-10 - M25.551) [facility] Other 05-10-2022 Evaluation note* Encounter Date Diagnosis Assessment Notes Treatment Notes Treatment Clinical Notes January, Gastroesophageal ref lux disease, unspecified whether esophagitis present (ICD-10 - K21.9) Continue to take medication as directed. January, PCOS (polycystic ovarian syndrome) (ICD-10 - E28.2) Take medication as directed with food [facility] Other 03-16-2022 Evaluation note* Encounter Date Diagnosis Assessment Notes Treatment Notes Treatment Clinical Notes Nov, Sacral back pain (ICD-10 - M53.3) [facility] Other 02-14-2022 Evaluation note* Encounter Date Diagnosis Assessment Notes Treatment Notes Treatment Clinical Notes Oct, Gastroesophageal ref lux disease, unspecified whether esophagitis present (ICD-10 - K21.9) [facility] Other 02-14-2022 Evaluation note* Encounter Date Diagnosis Assessment Notes Treatment Notes Treatment Clinical Notes Oct, Sacral back pain (ICD-10 - M53.3) [facility] Other 2021 Evaluation note* Encounter Date Diagnosis [...] Patient care instructions given in writting by [facility] document. [facility] Other Evaluation noteNo InformationNort [employer] Other Evaluation noteNo assessment information available [facility] Work Phone: History general Narrative - Reported* Type Description Date Medical History asthma Medical History pcos Medical History Fibromyalgia Medical History Hypothyroidism - euthyroid Medical History chronic fatigue Surgical History gall bladder Surgical History vein removed in bilaterally Surgical History gastric sleeve Hospitalization History see above Hospitalization History CHILD X'S 5 [facility] Other InstructionsNot on filedocumented in this encounter [facility] SystemReason for visit NarrativeDermatology Referral Update [facility] Other Summary Purpose Family History No Family [...] section and content) DATE CREATED AUTHOR 03/27/2022 [facility] DATE CREATED AUTHOR AUTHOR'S ORGANIZ ATION 01/29/2023 [facility] DATE CREATED AUTHOR AUTHOR'S ORGANIZ ATION 10/27/2023 [facility] EPIC DATE CREATED AUTHOR AUTHOR'S ORGANIZ ATION 11/08/2023 [facility] Care Teams (unrecognized sec tion and content) Team Status: Inactive Member Role Status Dates PHYSICIAN NO FAMILY Primary Care Provider Active CHRISTIANO Jha Attending Provider Active Team Status: Active Member Role Status Dates PHYSICIAN NO FAMILY Primary Care Provider Active 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 [employer] [facility]. provides no warranty or guarantee of the accuracy or completeness of information in this document.
--- NOTE | 2024-01-11 22:32 | ED.EXTPRO1 ---
HPI - Extremity Problem General Chief complaint: Extremity Problem, Nontraumatic Stated complaint: Right Shoulder Pain, Right Leg Pain Time Seen by Provider: 01/11/24 22:12 Source: patient Mode of arrival: walk-in History of Present Illness HPI Narrative: patient presents complaining of pain and weakness of her right arm for 2 weeks. Has been seen by her chiropractor and massage therapist. Seen today by her PCP and prescribed prednisone and norco. Took one of each this evening and did not feel they help and came here. No injury. Points to her right posterior shoulder as the site where the pain begins and then it radiates down the right arm. no fever. Has pain at the shoulder when she tries to hold it up No fever. Describes episodes of spasm pain at the shoulder Related Data Home Medications ?Medication ?Instructions ?Recorded ?Confirmed atorvastatin 10 mg tablet 10 mg PO QAM 01/11/24 01/13/24 cetirizine 10 mg tablet 10 mg PO DAILY 01/11/24 01/13/24 gabapentin 300 mg capsule 300 mg PO BID 01/11/24 01/13/24 levothyroxine 50 mcg tablet 50 mcg PO QAM 01/11/24 01/13/24 lisinopril 2.5 mg tablet 2.5 mg PO DAILY 01/11/24 01/13/24 minocycline 100 mg capsule 100 mg PO QPM 01/11/24 01/13/24 omeprazole 20 mg capsule,delayed 20 mg PO DAILY 01/11/24 01/13/24 release prednisone 20 mg tablet 20 mg PO DAILY 01/11/24 01/13/24 ropinirole 0.25 mg tablet 0.25 mg PO QPM 01/11/24 01/13/24 semaglutide 1 mg/dose (4 mg/3 mL) 1 mg subcut QWEEK 01/11/24 01/13/24 subcutaneous pen injector (Ozempic) sertraline 100 mg tablet 200 mg PO QAM 01/11/24 01/13/24 tizanidine 4 mg tablet 8 mg PO DAILY 01/11/24 01/13/24 Allergies Allergy/AdvReac Type Severity Reaction Status Date / Time No Known Drug Allergies Allergy Verified 01/11/24 21:40 Review of Systems ROS Status of ROS 10 or more systems reviewed and unremarkable except as noted in history and below [facility] Medical History (Updated 01/13/24 @ 11:55 by Nasreen Cotto, RN) Varicose vein of leg ?I83.90 - Asymptomatic varicose veins of unspecified lower extremity (ICD-10) Diabetes ?E11.9 - Type 2 diabetes mellitus without complications (ICD-10) PCOS (polycystic ovarian syndrome) ?E28.2 - Polycystic ovarian syndrome (ICD-10) Migraine ?G43.909 - Migraine, unspecified, not intractable, without status migrainosus (ICD-10) Hyperlipidemia ?E78.5 - Hyperlipidemia, unspecified (ICD-10) Hypothyroid ?E03.9 - Hypothyroidism, unspecified (ICD-10) HTN (hypertension) ?I10 - Essential (primary) hypertension (ICD-10) History of gastroesophageal reflux (GERD) ?Z87.19 - Personal history of other diseases of the digestive system (ICD-10) 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, unspecified (ICD-10) Depression ?F32.A - Depression, unspecified (ICD-10) Chronic sinusitis ?J32.9 - Chronic sinusitis, unspecified (ICD-10) Chronic fatigue syndrome with fibromyalgia ?G93.32 - Myalgic encephalomyelitis/chronic fatigue syndrome (ICD-10) ?M79.7 - Fibromyalgia (ICD-10) Surgical History (Updated 01/13/24 @ 11:55 by Nasreen Cotto, RN) History of vein stripping ?Z98.890 - Other specified postprocedural states (ICD-10) H/O gastric sleeve ?Z90.3 - Acquired absence of stomach [part of] (ICD-10) Hx of cholecystectomy ?Z90.49 - Acquired absence of other specified parts of digestive tract (ICD-10) Exam Constitutional Vital Signs, click to edit/add: Last Vital Signs Temp 98.1 F 01/11/24 21:35 Pulse 73 01/11/24 21:35 Resp 18 01/11/24 21:35 BP 119/74 01/11/24 21:35 Pulse Ox 96 01/11/24 21:35 O2 Del Method Room Air 01/11/24 21:35 Common normals: average body habitus, oriented x3, no limitations, healthy appearing, alert and well nourished General appearance: in distress (mild ) HENMT Common normals: normocephalic and head/scalp atraumatic Face and sinus: normal facial exam Neck & C-Spine Common normals: full ROM Other: cervical spine nontender Respiratory Common normals: normal respiratory effort, no retractions and no use of accessory muscles Cardio Common normals: regular rate, regular rhythm, S1 normal heart sound and S2 normal heart sound Extremity Common normals: normal to inspection Other: pain at right shoulder when she lift above horizontal. no deformity. passive ROM above shoulder much more tolerable Neuro Common normals: oriented x3, CN's II-XII intact bilaterally and moves all extremities Other: weakness of right upper extremity. hand grasp 2-3/5. also states she experiences pain with squeezing Psych Appearance: grossly normal Course Vital Signs Vital signs: Vital Signs Temperature 98.1 F 01/11/24 21:35 Pulse Rate 73 01/11/24 21:35 Respiratory Rate 18 01/11/24 21:35 Blood Pressure 119/74 01/11/24 21:35 Pulse Oximetry 96 01/11/24 21:35 Oxygen Delivery Method Room Air 01/11/24 21:35 Temperature 98.1 F 01/11/24 21:35 Pulse Rate 73 01/11/24 21:35 Respiratory Rate 18 01/11/24 21:35 Blood Pressure 119/74 01/11/24 21:35 Pulse Oximetry 96 01/11/24 21:35 Oxygen Delivery Method Room Air 01/11/24 21:35 MDM - Extremity (Nontraumatic) MDM Narrative Medical decision making narrative: patient presents with 2 weeks of pain radiating down her right arm starting at the left of her shoulder and superior trapezius. she has weak right hand grasp but on re questioning she admits when she squeezes with the hand it causes increase pain and so she restricts how much she squeezes. she also describes spasmodic pain. inflammatory markers elevated. pain improved with magnesium and solumedrol. patient discharged and advised of the importance of follow up with her neurologist. States she has an appointment in 2 weeks. Advised to contact them and follow up in the next few days Lab Data Labs: Lab Results 01/11/24 Range/Units 22:34 WBC 7.9 (4.0-11.0) 10^3/uL RBC 4.47 (4.20-5.40) 10^6/uL Hgb 12.8 (12.0-16.0) g/dL Hct 39.2 (36.0-48.0) % MCV 87.7 (81.0-99.0) fL MCH 28.6 (26.7-34.0) pg MCHC 32.7 (29.9-35.2) g/dL RDW 14.2 (11.0-15.0) % Plt Count 270 (150-450) 10^3/uL MPV 9.1 L (9.5-13.5) fL Neut % (Auto) 83.7 H (43.0-75.0) % Lymph % (Auto) 11.5 L (20.5-60.0) % Ness % (Auto) 2.8 (1.7-12.0) % Eos % (Auto) 1.3 (0.9-7.0) % Baso % (Auto) 0.4 (0.2-2.0) % Neut # (Auto) 6.6 H (1.4-6.5) 10^3/uL Lymph # (Auto) 0.9 L (1.2-3.8) 10^3/uL Ness # (Auto) 0.2 L (0.3-0.8) 10^3/uL Eos # (Auto) 0.1 (0.0-0.7) 10^3/uL Baso # (Auto) 0.0 (0.0-0.1) 10^3/uL Abs Immat Gran (auto) 0.02 (0.00-0.03) 10^3/uL Imm/Tot Granulo (auto) 0.3 (0.0-0.5) % ESR 41 H (<=20) mm/hr Sodium 137 (136-145) mmol/L Potassium 4.1 (3.5-5.1) mmol/L Chloride 103 (98-107) mmol/L Carbon Dioxide 26.2 (21.0-32.0) mmol/L Anion Gap 11.9 BUN 17.0 (7.0-18.0) mg/dL Creatinine 0.79 (0.55-1.02) mg/dL Est GFR ( Amer) >60 (>=60) Est GFR (Non-Af Amer) >60 (>=60) BUN/Creatinine Ratio 21.5 Glucose 114 H (74-106) mg/dL Calcium 9.0 (8.5-10.1) mg/dL C-Reactive Protein 0.51 H (<=0.50) mg/dL Imaging Data Chest x-ray: Radiologist's impression: ITS Impressions Cervical Spine CT 01/11/24 23:51 Impression: 1. No acute abnormality of the cervical spine. Electronically authenticated by: JAIDA MCLEOD Date: 01/12/2024 00:38 CT scan - head: Radiologist's impression: ITS Impressions Cervical Spine CT 01/11/24 23:51 Impression: 1. No acute abnormality of the cervical spine. Electronically authenticated by: JAIDA MCLEOD Date: 01/12/2024 00:38 Abdominal x-ray: Radiologist's impression: ITS Impressions Cervical Spine CT 01/11/24 23:51 Impression: 1. No acute abnormality of the cervical spine. Electronically authenticated by: JAIDA MCLEOD Date: 01/12/2024 00:38 Discharge Plan Discharge Stand Alone Forms: Portal Instructions Chief Complaint: Extremity Problem, Nontraumatic Clinical Impression: Cervical radiculopathy Patient Disposition: Home, Self-Care Prescriptions / Home Meds: No Action atorvastatin 10 mg tablet 10 mg PO QAM cetirizine 10 mg tablet 10 mg PO DAILY gabapentin 300 mg capsule 300 mg PO BID levothyroxine 50 mcg tablet 50 mcg PO QAM lisinopril 2.5 mg tablet 2.5 mg PO DAILY minocycline 100 mg capsule 100 mg PO QPM omeprazole 20 mg capsule,delayed release(DR/EC) 20 mg PO DAILY prednisone 20 mg tablet 20 mg PO DAILY ropinirole 0.25 mg tablet 0.25 mg PO QPM Ozempic 1 mg/dose (4 mg/3 mL) pen injector 1 mg SUBCUT QWEEK sertraline 100 mg tablet 200 mg PO QAM tizanidine 4 mg tablet 8 mg PO DAILY Print Language: Italian Instructions: Cervical Radiculopathy (ED) Additional Instructions: follow up with your Neurologist this week. return if increasing pain Referrals: Halima Moncada [employer]ER [Primary Care Provider] - 1 week Discharge Date/Time: 01/12/24 01:12
[2024-01-11 22:44] LABS: Basophils Percent Auto 0.4 % (0.2-2.0); Eosinophils Absolute Auto 0.1 10^3/uL (0.0-0.7); Eosinophils Percent Auto 1.3 % (0.9-7.0); Hematocrit 39.2 % (36.0-48.0); Hemoglobin 12.8 g/dL (12.0-16.0); Immature Granulocytes Abs Auto 0.02 10^3/uL (0.00-0.03); Immature Granulocytes Pct Auto 0.3 % (0.0-0.5); Lymphocytes Absolute Auto 0.9 10^3/uL (1.2-3.8); Lymphocytes Percent Auto 11.5 % (20.5-60.0); Mean Corpuscular HGB Conc 32.7 g/dL (29.9-35.2); Mean Corpuscular Hemoglobin 28.6 pg (26.7-34.0); Mean Corpuscular Volume 87.7 fL (81.0-99.0); Mean Platelet Volume 9.1 fL (9.5-13.5); Monocytes Absolute Auto 0.2 10^3/uL (0.3-0.8); Monocytes Percent Auto 2.8 % (1.7-12.0); Neutrophils Absolute Auto 6.6 10^3/uL (1.4-6.5); Neutrophils Percent Auto 83.7 % (43.0-75.0); Platelet Count 270 10^3/uL (150-450); Red Blood Count 4.47 10^6/uL (4.20-5.40); Red Cell Distribution Width 14.2 % (11.0-15.0); White Blood Count 7.9 10^3/uL (4.0-11.0)
[2024-01-11] MEDS: MAGNESIUM SULFATE IN WATER 2 GM/50 ML PREMIX IV (22:47)
[2024-01-11] MEDS: METHYLPREDNISOLONE SOD SUCC PF 125 MG/2 ML VIAL IVP (22:47)
[2024-01-11 22:50] LABS: Anion Gap 11.9; BUN Creatinine Ratio 21.5; Carbon Dioxide 26.2 mmol/L (21.0-32.0); Chloride 103 mmol/L (98-107); Estimated GFR (African America >60 (>=60); Estimated GFR (Non-African Ame >60 (>=60); Glucose 114 mg/dL (74-106); Potassium 4.1 mmol/L (3.5-5.1); Sodium 137 mmol/L (136-145)
[2024-01-11 22:51] LABS: C Reactive Protein 0.51 mg/dL (<=0.50)
[2024-01-11 22:52] LABS: Erythrocyte Sedimentation Rate 41 mm/hr (<=20)
--- NOTE | 2024-01-11 23:51 | CT_ITS ---
The [address] [address] Patient Name: JONNATHAN SEPULVEDA MRN: [id number] date: 1975 Sex: F Assigned Patient Location: ER Current Patient Location: Accession/Order Number: [id number] Exam Date: 01/11/2024 23:56 Report Date: 01/12/2024 00:38 At the request of: TELMA NICOLE Procedure: CT cervical spine wo con CT cervical spine wo con 01/11/2024 10:56 PM CDT: History: right radicular pain Neck Pain Comparison: None. Technique: Unenhanced CT imaging of the cervical spine. This CT exam was performed using one or more of the following dose reduction techniques: Automated exposure control, adjustment of the mA and/or KV according to patient size, or use of iterative reconstruction technique. Findings: The cervical vertebral bodies maintain normal height and alignment. There is no fracture or dislocation. The prevertebral soft tissues and predental space are normal. The facet joints are aligned bilaterally. The atlantooccipital articulation is normal bilaterally. There is multilevel degenerative disc disease of the cervical spine. CT/CT cervical spine wo con Impression: 1. No acute abnormality of the cervical spine. Electronically authenticated by: JAIDA MCLEOD Date: 01/12/2024 00:38
== END 2024-01-12 01:12 | disposition home or self-care (01) ==
PROVIDERS: Emergency Provider Internal Medicine; PCP Nurse Practitioner
DX: M54.12 Radiculopathy, cervical region (principal); Z79.899 Other long term (current) drug therapy; Z79.890 Hormone replacement therapy
CPT/HCPCS: 36415; 72125; 80048; 85025; 85652; 86140; 96365; 96366; 96375; 99284; J2919

== ENCOUNTER 2024-01-13 10:33 | Outpatient (OUT) | payer BC, MEDICAID, SELFPAY ==
--- NOTE | 2024-01-13 11:01 | P.CN_ITS ---
Consult Note: HPI Data of Consult Patient: new to practice Requesting Physician: Tegan Grubbs NP Primary Care Provider: Halima Moncada NP Consult Narrative Reason for consult: right neck/shoulder Narrative: Tatiana Brewster a pleasant 48 year old female presents for evaluation and management of acute neck pain, pain started 4 weeks ago. Patient reports 8/10 burning pulling pain with numbness tingling weakness or right arm. Pain increased with activity. no improvement from chiropractor, tens, dry needling and massage. No benefit to norco. currently on gabapentin 300mg daily, zanaflex 8mg. hx of fibromyalgia. pt was evaluated in the ER, PCP ordered steroids without benefit. cc:: CC: Tegan Grubbs NP Review of Systems ROS Status of ROS 10 or more systems reviewed and unremark able except as noted in history and below Musculoskeletal Reports: neck pain and joint pain Meds Home Medications and Allergies Home Medications ?Medication ?Instructions ?Recorded ?Confirmed ?Type atorvastatin 10 mg tablet 10 mg PO QAM 01/11/24 01/11/24 History cetirizine 10 mg tablet 10 mg PO DAILY 01/11/24 01/11/24 History gabapentin 300 mg capsule 300 mg PO BID 01/11/24 01/11/24 History hydrocodone 5 mg-acetaminophen 325 1 tab PO Q6H PRN pain 01/11/24 01/11/24 Histo ry mg tablet levothyroxine 50 mcg tablet 50 mcg PO QAM 01/11/24 01/11/24 History lisinopril 2.5 mg tablet 2.5 mg PO DAILY 01/11/24 01/11/24 History minocycline 100 mg capsule 100 mg PO QPM 01/11/24 01/11/24 History omeprazole 20 mg capsule,delayed 20 mg PO DAILY 01/11/24 01/11/24 History release prednisone 20 mg tablet 20 mg PO DAILY 01/11/24 01/11/24 History ropinirole 0.25 mg tablet 0.25 mg PO QPM 01/11/24 01/11/24 History semaglutide 1 mg/dose (4 mg/3 mL) 1 mg subcut QWEEK 01/11/24 01/11/24 History subcutaneous pen injector (Ozempic) sertraline 100 mg tablet 200 mg PO QAM 04/16/24 04/16/24 History tizanidine 4 mg tablet 8 mg PO DAILY 01/11/24 01/11/24 History Allergies Allergy/AdvReac Type Severity Reaction Status Date / Time No Known Drug Allergies Allergy Verified 01/11/24 21:40 Exam Constitutional Documenting provider has reviewed patient's vital signs: yes Common normals: no apparent distress, oriented x3, healthy appearing, alert and well nourished General appearance: cooperative HENMT Common normals: normocephalic, hearing grossly normal bilaterally and moist oral mucous membranes Head and scalp: normocephalic Eye Common normals: PERRL Pupil: PERRL Neck & C-Spine Common normals: full ROM General: normal visual inspection Cervical spine: pain with cervical ROM, paracervical muscle tenderness, paracervical muscle spasm and trapezius muscle tenderness Other: right paracervical, trapezius, suprascapular myofascial pain and trigger points Chest Common normals: inspection of chest normal Respiratory Common normals: normal respiratory effort, no retractions and no use of accessory muscles Extremity Right upper extremity: shoulder joint (ROM intact, negative cross body and posterior lift off) and upper arm Other: strength 3/5 in RUE sensation intact BUE pain across right suprascapular/axillary nerve increased with palpation Neuro Common normals: oriented x3, CN's II-XII intact bilaterally, moves all extremities, no focal motor deficits, no sensory deficits noted, deep tendon reflexes 2+ bilaterally and gait normal Sensorium/orientation: alert Motor exam: strength 5/5 throughout and no movement abnormalities noted Psych Common normals: mental status grossly normal, thought process normal, cooperative, affect normal, speech normal and activity/motor behavior normal Speech: normal speech Thought process: normal thought process Results Imaging cervical ct: Attestation: I have reviewed the pertinent imaging results. Radiologist's impression: The cervical vertebral bodies maintain normal height and alignment. There is no fracture or dislocation. The prevertebral soft tissues and predental space are normal. The facet joints are aligned bilaterally. The atlantooccipital articulation is normal bilaterally. There is multilevel degenerative disc disease of the cervical spine. Additional Findings Additional findings: If on a controlled substance or opioids, I have checked an [place] report on this patient and there are no aberrancies noted in the prescribing history.??If on a controlled substance or opioid a drug screen was completed and reviewed within the last year, and if there has not been a drug screen completed we ordered one today to monitor higher risk, state monitored pain medication use. As part of providing excellent, safe, comprehensive care, the following was completed at our patient's visit: 1. A medication reconciliation and review to ensure accurate knowledge of current/active medications, including asking our patients to inform us about any [id number] medications or herbal remedies/nutritional supplements/alternative remedies. 2. A review to specifically ensure our patients have had annual screening for screening for depression, screening for tobacco use, and screening for unhealthy alcohol use. For concerning screenings had a discussion with the patient, provided patient education, and recommended follow-up with primary care provider when appropriate. If patient noted with a risk of falling, they received education on strength, gait, and balance training to prevent future risk of falling. 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
== END 2024-01-13 10:34 | disposition home or self-care (01) ==
LOC: PM 10:34
PROVIDERS: PCP Nurse Practitioner; Visit Provider Nurse Practitioner
DX: M25.511 Pain in right shoulder (principal); M48.02 Spinal stenosis, cervical region; M54.12 Radiculopathy, cervical region; M79.18 Myalgia, other site
CPT/HCPCS: G0463

== ENCOUNTER 2024-01-17 09:24 | Outpatient (OUT) | payer BC, MEDICAID, SELFPAY ==
--- NOTE | 2024-01-17 09:25 | VEIN_ITS ---
Patient Name: JONNATHAN SEPULVEDA MR#: [id number] : 1975 Exam Date: 01/17/2024 Ordering Doctor: DR LIONEL MORSE M.D. RADIOLOGY REPORT PROCEDURE: [facility] - OFFICE VISIT FOLLOW UP COMPARISON: [facility], 12/27/2023. [facility], 12/09/2023. PROGRESS NOTES: The patient reports no significant problems following intravenous laser ablation of the right great saphenous vein. The patient did wear her compression stocking. The patient has exercise. The patient did not require oral analgesics. Physical exam demonstrates small area of bruising measuring 2 cm proximal medial right thigh related to tumescence injection. Thrombosed right great saphenous vein can be palpated. No erythema or warmth to suggest cellulitis or thrombophlebitis. No active ulceration Review of the ultrasound performed the same day demonstrates occlusive thrombus extending throughout the treated right great saphenous vein. Heat induced thrombus is 1.8 cm from the saphenofemoral junction. No deep vein thrombus. The patient expressed a desire to proceed with treatment of incompetent varicose veins with micro foam chemical ablation. [facility] IMPRESSION: 1. Successful ablation of the right great saphenous vein 2. Persistent bilateral incompetent varicose veins. PLAN: Micro foam chemical ablation left leg incompetent varicose veins Nurse notes, history and physical were reviewed and confirmed, see attached forms. The nurse was present throughout the physical exam and consultation Dictated by: Lionel Morse MD on 01/17/2024 at 10:00 Approved by: Lionel Morse MD on 01/17/2024 at 10:01
--- NOTE | 2024-01-17 09:25 | VEIN_ITS ---
Patient Name: JONNATHAN SEPULVEDA MR#: [id number] : 1975 Exam Date: 01/17/2024 Ordering Doctor: DR LIONEL MORSE M.D. RADIOLOGY REPORT PROCEDURE: [facility] COMPARISON: [facility], 12/27/2023. [facility] EXT [facility]ENOUS RT [facility], 11/22/2023. INDICATIONS: Phlebitis of superficial vein of right lower extremity I80.01 TECHNIQUE: Lower extremity clayton scale and Duplex Doppler evaluation of the deep venous system from the inguinal ligament through the calf veins. FINDINGS: REGION: Right lower extremity. THROMBI: Negative for DVT. Heat induced thrombus in right GSV 1.8 cm from SFJ and extends to mid calf. COMPRESSIBILITY: Non-compressible segments corresponding to thrombus FLOW: Areas of no flow corresponding to thrombus OTHER: Large unarmed security officer mid calf off GSV still patent. CONCLUSION: Post ablation occlusion of the right great saphenous vein with heat induced thrombus 1.8 cm from the saphenofemoral junction Dictated by: Lionel Morse MD on 01/17/2024 at 09:56 Approved by: Lionel Morse MD on 01/17/2024 at 09:56
--- OUTSIDE RECORDS SUMMARY | 2024-01-17 09:47 | XMS_ITS | CCD ---
Author Organization [facility] Care Team Providers Care Wire Frame Dipper Name Role Phone Kaylie Echeverria Unavailable Mona Morin Unavailable NO FAMILY, PHYSICIAN Primary Care Provider CHRISTIANO Ward Attending Provider MONA MORIN Primary Care Unavailable MISC, DR ELIAS Attending Unavailable MISC, DR ELIAS Admitting Unavailable ERICK, KENDRA CALZADA Consulting Unavailable MONA MORIN Consulting Unavailable MOAN MORIN Primary Care Unavailable MONA MORIN Admitting Unavailable MONA MORIN Attending Unavailable MIKEL, MONA Primary Care Unavailable MIKEL, MONA Admitting Unavailable MONA MORIN Attending Unavailable MONA MORIN Consulting Unavailable Priyanka Jones Unavailable TD BERUMEN Attending Unavailable MONA MORIN Referring Unavailable MIKEL, MONA Primary Care Unavailable Mikel CONSULTING NETWORKING ENGINEER-BRENT, Mona Primary Care Provide r ELSI SUAREZ Attending Unavailable ELSI SUAREZ Attending Unavailable ELSI SUAREZ Attending Unavailable Allergies Allergy Classification Reported Allergen(s) Allergy Type Date of Onset Reaction(s) Facility (5 sources) Cephalexin Drug Allergy rash [facility] Other (12 sources) Cephalexin Drug Allergy rash [facility] Other (1 source) Sulfamethoxazole / Trimethoprim Drug Allergy 3 [facility] Medications Current Medications Medication Drug Class(es) Dates Sig (Normalized) Sig (Original) [id number] 200 actuat albuterol 0.09 mg/actuat metered dose [...] oral solution (2 sources) alpha-Adrenergic Agonist, Uncompetitive D-pzfnvo-Q-aspartate Receptor Antagonist, Sigma-1 Agonist Start: 08-31-2021 take [...] once daily AT 8 PM 30 capsule 05/26/2023 Active take 1 capsule by mouth [...] pyogenes Org specific cx Ql (Throat) Negative [facility] Other Quick Strep [facility] Other INSULINon 01-26-2023 Insulin 21.3 uIU/mL Normal 2.6-24.9 [facility] Comment on above: Performed By: #### I NSULIN #### [facility] [address] [place] [address] Dr. Yvan Manzano CORTISOLon 01-23-2023 Cortisol 11.2 ug/dL Normal 6.2-19.4 [facility] Comment on above: Result Comment: [place] Note: The reference interval and flagging for this test is for an AM collection. If this is a PM collection please use: Cortisol PM: 2.3-11.9 [facility] also offers: [id number]: Cortisol- AM [id number]: Cortisol- PM Performed By: #### C BC #### [facility] [address] [place] [address] Dr. Yvan Manzano CBC AUTO DIFFon 01-22-2023 BASO # 0.1 103/ul Normal 0.0-0.1 [facility] Comment on above: Performed By: #### C BC #### [facility] [address] [place] [address] Dr. Yvan Manzano Basophils/100 WBC (Bld) 0.9 % Normal 0.2-2.0 [facility] Comment on above: Performed By: #### C BC #### [facility] [address] [place] [address] Dr. Yvan Manzano EO # 0.3 103/ul Normal 0.0-0.7 [facility] Comment on above: Performed By: #### C BC #### [facility] [address] [place] [address] Dr. Yvan Manzano Eosinophils/100 WBC (Bld) 5.7 % Normal 0.9-7.0 [facility] Comment on above: Performed By: #### C BC #### [facility] [address] [place] [address] Dr. Yvan Manzano Erythrocyte distribution width (RBC) [Ratio] 14.6 % Normal 11.0-15.0 [facility] Comment on above: Performed By: #### C BC #### [facility] [address] [place] [address] Dr. Yvan Manzano Hematocrit (Bld) [Volume fraction] 36.8 % Normal 36.0-48.0 [facility] Comment on above: Performed By: #### C BC #### [facility] [address] [place] [address] Dr. Yvan Manzano Hemoglobin (Bld) [Mass/Vol] 11.4 g/dL Critically low 12.0-16.0 [facility] Comment on above: Performed By: #### C BC #### [facility] [address] [place] [address] Dr. Yvan Manzano IG # 0.02 10e3/ul Normal 0.00-0.03 [facility] Comment on above: Performed By: #### C BC #### [facility] [address] [place] [address] Dr. Yvan Manzano IG % 0.3 % Normal 0.0-0.5 [facility] Comment on above: Performed By: #### C BC #### [facility] [address] [place] [address] Dr. Yvan Manzano LYMPH # 1.5 103/ul Normal 1.2-3.8 [facility] Comment on above: Performed By: #### C BC #### [facility] [address] [place] [address] Dr. Yvan Manzano Lymphocytes/100 WBC (Bld) 25.3 % Normal 20.5-60.0 [facility] Comment on above: Performed By: #### C BC #### [facility] [address] [place] [address] Dr. Yvan Manzano MANUAL DIFF REQ NO Normal [facility] Comment on above: Performed By: #### C BC #### [facility] [address] [place] [address] Dr. Yvan Manzano MCH (RBC) [Entitic mass] 25.2 pg Critically low 26.7-34.0 [facility] Comment on above: Performed By: #### C BC #### [facility] [address] [place] [address] Dr. Yvan Manzano MCHC (RBC) [Mass/Vol] 31.0 g/dL Normal 29.9-35.2 [facility] Comment on above: Performed By: #### C BC #### [facility] [address] [address] [address] Yvan Manzano MCV (RBC) [Entitic vol] 81.4 fL Normal 81.0-99.0 [facility] Comment on above: Performed By: #### C BC #### [facility] [address] [address] [address] Yvan Manzano MONO # 0.4 103/ul Normal 0.3-0.8 [facility] Comment on above: Performed By: #### C BC #### [facility] [address] [place] [address] Dr. Yvan Manzano Monocytes/100 WBC (Bld) 7.7 % Normal 1.7-12.0 [facility] Comment on above: Performed By: #### C BC #### [facility] [address] [place] [address] Dr. Yvan Manzano NEUT # 3.5 103/ul Normal 1.4-6.5 [facility] Comment on above: Performed By: #### C BC #### [facility] [address] [place] [address] Dr. Yvan Manzano Neutrophils/100 WBC (Bld) 60.1 % Normal 43.0-75.0 [facility] Comment on above: Performed By: #### C BC #### [facility] [address] [place] [address] Dr. Yvan Manzano Platelet mean volume (Bld) [Entitic vol] 8.8 fL Critically low 9.5-13.5 [facility] Comment on above: Performed By: #### C BC #### [facility] [address] [place] [address] Dr. Yvan Manzano PLT 347 103/ul Normal 150-450 [facility] Comment on above: Performed By: #### C BC #### [facility] [address] [place] [address] Dr. Yvan Manzano RBC 4.52 106/ul Normal 4.20-5.40 [facility] Comment on above: Performed By: #### C BC #### [facility] [address] [place] [address] Dr. Yvan Manzano WBC 5.7 103/ul Normal 4.0-11.0 [facility] Comment on above: Performed By: #### C BC #### [facility] [address] [address] [address] Yvan Manzano FREE T4on 01-22-2023 Free T4 [Mass/Vol] 0.84 ng/dL Normal 0.76-1.46 [facility] Comment on above: Performed By: #### F T4 #### [facility] [address] [place] [address] Dr. Yvan Manzano LIPID PROFILEon 01-22-2023 CHOL-HDL RATIO NORM SEE BELOW Normal [facility] Comment on above: Result Comment: 3.3 - 4.4 LOW RISK 4.4 - 7.1 AVERAGE RISK 7.1 - 11.0 MODERATE RISK >11.0 HIGH RISK Performed By: #### T SH, LIPID #### [facility] [address] [place] [address] Dr. Yvan Manzano Cholesterol [Mass/Vol] 264 mg/dL Critically high <=200 [facility] Comment on above: Performed By: #### T SH, LIPID #### [facility] [address] [place] [address] Dr. Yvan Manzano Cholesterol in HDL [Mass/Vol] 52 mg/dL Normal 40-60 [facility] Comment on above: Performed By: #### T SH, LIPID #### [facility] [address] [place] [address] Dr. Yvan Manzano Cholesterol in LDL [Mass/Vol] 173.6 mg/dL Normal [facility] Comment on above: Performed By: #### T SH, LIPID #### [facility] [address] [place] [address] Dr. Yvan Manzano Cholesterol.total/Ch olesterol in HDL [Mass ratio] 5.1 {ratio} Normal [facility] Comment on above: Performed By: #### T SH, LIPID #### [facility] [address] [place] [address] Dr. Yvan Manzano HDL NORMAL > or = 60 mg/dl - LOW CARDIOVASCULAR RISK <40 mg/dl - HIGH CARDIOVASCULAR RISK Normal [facility] Comment on above: Performed By: #### T SH, LIPID #### [facility] [address] [address] [address] Yvan Manzano LDL CALC NORMAL SEE BELOW Normal [facility] Comment on above: Result Comment: <100 mg/dl OPTIMAL 100 - 129 mg/dl NEAR OR ABOVE OPTIMAL 130 - 159 mg/dl BORDERLINE HIGH 160 - 189 mg/dl HIGH >190 mg/dl VERY HIGH Performed By: #### T SH, LIPID #### [facility] [address] [address] [address] Yvan Manzano Triglyceride [Mass/Vol] 192 mg/dL Critically high <=150 [facility] Comment on above: Performed By: #### T SH, LIPID #### [facility] [address] [address] [address] Yvan Manzano VLDL CALC 38.4 mg/dL Normal [facility] Comment on above: Performed By: #### T SH, LIPID #### [facility] [address] [place] [address] Dr. Yvan Manzano TSHon 01-22-2023 TSH 5.749 uIU/mL Critically high 0.358-3.[address] [facility] Comment on above: Performed By: #### T SH, LIPID #### [facility] [address] [place] [address] Dr. Yvan Manzano GLYCOHEMOGLOBIN A1Con 2022 ADA RECOMMENDATION SEE BELOW Normal [facility] Comment on above: Result Comment: ADA RECOMMENDED LIMIT 4.0 - 6.0 ADA THERAPEUTIC TARGET < 7.0 ACTION SUGGESTED > 7.0 Performed By: #### A 1C #### [facility] [address] [address] [address] Yvan Manzano Glucose [Mass/Vol] 137 mg/dL Normal [facility] Comment on above: Performed By: #### A 1C #### [facility] [address] [place] [address] Dr. Yvan Manzano HbA1c (Bld) [Mass fraction] 6.4 % Critically high 4.5-6.2 [facility] Comment on above: Performed By: #### A 1C #### [facility] [address] [address] [address] Yvan Manzano PROF 14(COMP METB)on 023 Albumin [Mass/Vol] 3.4 g/dL Normal 3.4-5.0 [facility] Comment on above: Performed By: #### C MP #### [facility] [address] [place] [address] Dr. Yvan Manzano Albumin/Globulin [Mass ratio] 0.9 {ratio} Normal [facility] Comment on above: Performed By: #### C MP #### [facility] [address] [place] [address] Dr. Yvan Manzano ALP [Catalytic activity/Vol] 74 U/L Normal 46-116 [facility] Comment on above: Performed By: #### C MP #### [facility] [address] [place] [address] Dr. Yvan Manzano ALT [Catalytic activity/Vol] 25 U/L Normal 14-59 [facility] Comment on above: Performed By: #### C MP #### [facility] [address] [place] [address] Dr. Yvan Manzano Anion gap [Moles/Vol] 9.4 mmol/L Normal [facility] Comment on above: Performed By: #### C MP #### [facility] [address] [place] [address] Dr. Yvan Manzano AST [Catalytic activity/Vol] 17 U/L Normal 15-37 [facility] Comment on above: Performed By: #### C MP #### [facility] [address] [place] [address] Dr. Yvan Manzano Bilirubin [Mass/Vol] 0.1 mg/dL Critically low 0.2-1.0 [facility] Comment on above: Performed By: #### C MP #### [facility] [address] [place] [address] Dr. Yvan Manzano Calcium [Mass/Vol] 9.2 mg/dL Normal 8.5-10.[address] [facility] Comment on above: Performed By: #### C MP #### [facility] [address] [address] [address] Yvan Manzano Chloride [Moles/Vol] 101 mmol/L Normal 98-107 [facility] Comment on above: Performed By: #### C MP #### [facility] [address] [address] [address] Yvan Manzano CO2 [Moles/Vol] 30.4 mmol/L Normal 21.0-32.0 [facility] Comment on above: Performed By: #### C MP #### [facility] [address] [address] [address] Yvan Manzano Creatinine [Mass/Vol] 0.71 mg/dL Normal 0.55-1.02 [facility] Comment on above: Performed By: #### C MP #### [facility] [address] [place] [address] Dr. Yvan Manzano EGFR-AF BURUNDIAN >60 Normal >=60 [facility] Comment on above: Performed By: #### C MP #### [facility] [address] [address] [address] Yvan Manzano EGFR-NON AF BURUNDIAN >60 Normal >=60 [facility] Comment on above: Performed By: #### C MP #### [facility] [address] [address] [address] Yvan Manzano Globulin (S) [Mass/Vol] 4.0 g/dL Normal [facility] Comment on above: Performed By: #### C MP #### [facility] [address] [address] [address] Yvan Manzano Glucose [Mass/Vol] 138 mg/dL Critically high 74-106 [facility] Comment on above: Performed By: #### C MP #### [facility] [address] [address] [address] Yvan Manzano Potassium [Moles/Vol] 3.8 mmol/L Normal 3.5-5.1 [facility] Comment on above: Performed By: #### C MP #### [facility] [address] [address] [address] Yvan Manzano Protein [Mass/Vol] 7.4 g/dL Normal 6.4-8.[address] [facility] Comment on above: Performed By: #### C MP #### [facility] [address] [address] [address] Yvan Manzano Sodium [Moles/Vol] 137 mmol/L Normal 136-145 [facility] Comment on above: Performed By: #### C MP #### [facility] [address] [address] [address] Yvan Manzano Urea nitrogen [Mass/Vol] 13.0 mg/dL Normal 7.0-18.0 [facility] Comment on above: Performed By: #### C MP #### [facility] [address] [address] [address] Yvan Manzano Urea nitrogen/Creatinine [Mass ratio] 18.3 mg/mg Normal [facility] Comment on above: Performed By: #### C MP #### [facility] [address] [address] [address] Yvan Manzano LIPID PROFILEon 03-31-2022 CHOL-HDL RATIO NORM SEE BELOW Normal [facility] Comment on above: Result Comment: 3.3 - 4.4 LOW RISK 4.4 - 7.1 AVERAGE RISK 7.1 - 11.0 MODERATE RISK >11.0 HIGH RISK Performed By: #### C MP, LIPID #### [facility] [address] [address] [address] Yvan Manzano Cholesterol [Mass/Vol] 229 mg/dL Critically high <=200 [facility] Comment on above: Performed By: #### C MP, LIPID #### [facility] [address] [address] [address] Yvan Manzano Cholesterol in HDL [Mass/Vol] 51 mg/dL Normal 40-60 [facility] Comment on above: Performed By: #### C MP, LIPID #### [facility] [address] [address] [address] Yvan Manzano Cholesterol in LDL [Mass/Vol] 150.4 mg/dL Normal [facility] Comment on above: Performed By: #### C MP, LIPID #### [facility] [address] [address] [address] Yvan Manzano Cholesterol.total/Ch olesterol in HDL [Mass ratio] 4.5 {ratio} Normal [facility] Comment on above: Performed By: #### C MP, LIPID #### [facility] [address] [place] [address] Dr. Yvan Manzano HDL NORMAL > or = 60 mg/dl - LOW CARDIOVASCULAR RISK <40 mg/dl - HIGH CARDIOVASCULAR RISK Normal [facility] Comment on above: Performed By: #### C MP, LIPID #### [facility] [address] [address] [address] Yvan Manzano LDL CALC NORMAL SEE BELOW Normal [facility] Comment on above: Result Comment: <100 mg/dl OPTIMAL 100 - 129 mg/dl NEAR OR ABOVE OPTIMAL 130 - 159 mg/dl BORDERLINE HIGH 160 - 189 mg/dl HIGH >190 mg/dl VERY HIGH Performed By: #### C MP, LIPID #### [facility] [address] [place] [address] Dr. Yvan Manzano Triglyceride [Mass/Vol] 138 mg/dL Normal <=150 [facility] Comment on above: Performed By: #### C MP, LIPID #### [facility] [address] [place] [address] Dr. Yvan Manzano VLDL CALC 27.6 mg/dL Normal [facility] Comment on above: Performed By: #### C MP, LIPID #### [facility] [address] [place] [address] Dr. Yvan Manzano MICROALB CREAT RATIO RANDOMo n 03-31-2022 mALB 1.4 mg/L Normal <=30.0 [facility] Comment on above: Performed By: #### M CRR #### [facility] [address] [place] [address] Dr. Yvan Manzano MALB CR RATIO 6.0 mg/g Normal 0.0-29.9 [facility] Comment on above: Performed By: #### M CRR #### [facility] [address] [address] [address] Yvna Manzano MALB CR RATIO RANGE SEE BELOW Normal [facility] Comment on above: Result Comment: NO M ICROALBUMINURIA 0-29 MG/G CLINICAL MICROALBUMINURIA 30-300 MG/G MACROALBUMINURIA >300 MG/G Performed By: #### M CRR #### [facility] [address] [address] [address] Yvan Manzano URINE CREAT 232.88 mg/dL Normal 20.00-300.00 [facility] Comment on above: Performed By: #### M CRR #### [facility] [address] [place] [address] Dr. Yvan Manzano PROF 14(COMP METB)on 022 Albumin [Mass/Vol] 3.6 g/dL Normal 3.4-5.0 [facility] Comment on above: Performed By: #### C MP, LIPID #### [facility] [address] [place] [address] Dr. Yvan Manzano Albumin/Globulin [Mass ratio] 0.9 {ratio} Normal [facility] Comment on above: Performed By: #### C MP, LIPID #### [facility] [address] [place] [address] Dr. Yvan Manzano ALP [Catalytic activity/Vol] 63 U/L Normal 46-116 [facility] Comment on above: Performed By: #### C MP, LIPID #### [facility] [address] [place] [address] Dr. Yvan Manzano ALT [Catalytic activity/Vol] 33 U/L Normal 14-59 [facility] Comment on above: Performed By: #### C MP, LIPID #### [facility] [address] [place] [address] Dr. Yvan Manzano Anion gap [Moles/Vol] 11.7 mmol/L Normal [facility] Comment on above: Performed By: #### C MP, LIPID #### [facility] [address] [place] [address] Dr. Yvan Manzano AST [Catalytic activity/Vol] 23 U/L Normal 15-37 [facility] Comment on above: Performed By: #### C MP, LIPID #### [facility] [address] [address] [address] Yvan Manzano Bilirubin [Mass/Vol] 0.2 mg/dL Normal 0.2-1.0 [facility] Comment on above: Performed By: #### C MP, LIPID #### [facility] [address] [address] [address] Yvan Manzano Calcium [Mass/Vol] 9.5 mg/dL Normal 8.5-10.1 [facility] Comment on above: Performed By: #### C MP, LIPID #### [facility] [address] [address] [address] Yvan Manzano Chloride [Moles/Vol] 102 mmol/L Normal 98-107 [facility] Comment on above: Performed By: #### C MP, LIPID #### [facility] [address] [address] [address] Yvan Manzano CO2 [Moles/Vol] 28.0 mmol/L Normal 21.0-32.0 [facility] Comment on above: Performed By: #### C MP, LIPID #### [facility] [address] [address] [address] Yvan Manzano Creatinine [Mass/Vol] 0.71 mg/dL Normal 0.55-1.02 [facility] Comment on above: Performed By: #### C MP, LIPID #### [facility] [address] [address] [address] vYan Manzano EGFR-AF BURUNDIAN >60 Normal >=60 [facility] Comment on above: Performed By: #### C MP, LIPID #### [facility] [address] [address] [address] Yvan Manzano EGFR-NON AF BURUNDIAN >60 Normal >=60 [facility] Comment on above: Performed By: #### C MP, LIPID #### [facility] [address] [place] [address] Dr. Yvan Mnazano Globulin (S) [Mass/Vol] 4.0 g/dL Normal [facility] Comment on above: Performed By: #### C MP, LIPID #### [facility] [address] [address] [address] Yvan Manzano Glucose [Mass/Vol] 87 mg/dL Normal 74-106 [facility] Comment on above: Performed By: #### C MP, LIPID #### [facility] [address] [address] [address] Yvan Manzano Potassium [Moles/Vol] 3.7 mmol/L Normal 3.5-5.1 [facility] Comment on above: Performed By: #### C MP, LIPID #### [facility] [address] [address] [address] Yvan Manzano Protein [Mass/Vol] 7.6 g/dL Normal 6.4-8.[address] [facility] Comment on above: Performed By: #### C MP, LIPID #### [facility] [address] [address] [address] Yvan Manzano Sodium [Moles/Vol] 138 mmol/L Normal 136-145 [facility] Comment on above: Performed By: #### C MP, LIPID #### [facility] [address] [address] [address] Yvan aMnzano Urea nitrogen [Mass/Vol] 14.0 mg/dL Normal 7.0-18.0 [facility] Comment on above: Performed By: #### C MP, LIPID #### [facility] [address] [address] [address] Yvan Manzano Urea nitrogen/Creatinine [Mass ratio] 19.7 mg/mg Normal [facility] Comment on above: Performed By: #### C MP, LIPID #### [facility] [address] [address] [address] Yvan Manzano XR hip RT min 2V(w/wo pelvis )*on 03-26-2022 XR hip RT min 2V(w/wo pelvis)* [facility] Main [address] [address] XRay Report Signed Patient: Tatiana Sepulveda MR#: [id number] : 1975 Acct:[id number] Age/Sex: 46 / F ADM Date: 03/26/22 [...] Michael Harper M.D.03/26/2022 3:38 PM Dictation Location: [place] [address] Transcribed By: [facility] 03/26/22 1538 Dictated By: Michael Harper DO 03/26/22 1534 Signed By: 03/26/22 1538 [facility] XR sacrum coccyx min 2Von XR sacrum coccyx min 2V [facility] Main [place] [address] [place] [address] XRay Report Signed Patient: Tatiana Sepulveda MR#: [id number] : 1975 Acct:[id number] Age/Sex: 45 / F ADM Date: 09/29/21 [...] acute bony injury. Impression dictated by: Laron Vlilegas M.D.09/29/2021 4:16 PM Dictation Location: [place] [address] Transcribed By: [facility] 09/29/21 161 Dictated By: Laron Villegas II, MD 09/29/211612 Signed By: 09/29/21 161 [facility] COVID Quick Testingon 2020 Result Negative [facility] Other Vital Signs Date Time Vital Sign Value Performing Clinician Facility 05-03-2023 09:05-0400 Body height 157.48 cm Priyanka Jones Other [facility] Other 05-03-2023 09:05-0400 Body mass index (BMI) [Ratio] 35.02 kg/m2 Priyanka Jones Other [facility] Other 05-03-2023 09:05-0400 Body temperature 97.5 [degF] Priyanka Jones Other [facility] Other 05-03-2023 09:05-0400 Body weight 86.86 kg Priyanka Jones Other [facility] Other 05-03-2023 09:05-0400 Diastolic blood pressure 76 mm[Hg] Priyanka Jones Other [facility] Other 05-03-2023 09:05-0400 Respiratory rate 18 /min Priyanka Jones Other [facility] Other 05-03-2023 09:05-0400 SaO2% (BldA) [Mass fraction] 100 % Priyanka Jones Other [facility] Other 05-03-2023 09:05-0400 Systolic blood pressure 117 mm[Hg] Priyanka Jones Other [facility] Other 11-17-2022 11:30-0500 Body height 157.48 cm Mona Yeungault Other [facility] Other 11-17-2022 11:30-0500 Body mass index (BMI) [Ratio] 35.3 kg/m2 Mona Yeungault Other [facility] Other 11-17-2022 11:30-0500 Body temperature 98.7 [degF] Mona Yeungault Other [facility] Other 11-17-2022 11:30-0500 Body weight 87.54 kg Mona Morin Other [facility] Other 11-17-2022 11:30-0500 Respiratory rate 18 /min Mona Morin Other [facility] Other 11-17-2022 11:30-0500 SaO2% (BldA) [Mass fraction] 98 % Mona Yeungault Other [facility] Other 09-28-2022 16:30-0500 Body height 157.48 cm Mona Yeungault Other [facility] Other 09-28-2022 16:30-0500 Body mass index (BMI) [Ratio] 35.3 kg/m2 Mona Mikel Other [facility] Other 09-28-2022 16:30-0500 Body temperature 98 [degF] Mona Morin Other [facility] Other 09-28-2022 16:30-0500 Body weight 87.54 kg Mona Morin Other [facility] Other 09-28-2022 16:30-0500 Diastolic blood pressure 79 mm[Hg] Mona Morin Other [facility] Other 09-28-2022 16:30-0500 Respiratory rate 18 /min Mona Morin Other [facility] Other 09-28-2022 16:30-0500 SaO2% (BldA) [Mass fraction] 98 % Mona Morin Other [facility] Other 09-28-2022 16:30-0500 Systolic blood pressure 130 mm[Hg] Mona Morin Other [facility] Other 07-14-2022 15:00-0400 Body height 157.48 cm Mona Morin Other [facility] Other 07-14-2022 15:00-0400 Body mass index (BMI) [Ratio] 35.66 kg/m2 Mona Morin Other [facility] Other 07-14-2022 15:00-0400 Body weight 88.45 kg Mona Morin Other [facility] Other 07-14-2022 15:00-0400 Diastolic blood pressure 89 mm[Hg] Mona Yeungault Other [facility] Other 07-14-2022 15:00-0400 Respiratory rate 18 /min Mona Morin Other [facility] Other 07-14-2022 15:00-0400 SaO2% (BldA) [Mass fraction] 98 % Mona Morin Other [facility] Other 07-14-2022 15:00-0400 Systolic blood pressure 145 mm[Hg] Mona Yeungault Other [facility] Other 06-30-2022 12:00-0400 Body height 157.48 cm Mona Yeungault Other [facility] Other 06-30-2022 12:00-0400 Body mass index (BMI) [Ratio] 35.48 kg/m2 Mona Yeungault Other [facility] Other 06-30-2022 12:00-0400 Body temperature 97.7 [degF] Mona Yeungault Other [facility] Other 06-30-2022 12:00-0400 Body weight 88 kg Mona Yeungault Other [facility] Other 06-30-2022 12:00-0400 Diastolic blood pressure 87 mm[Hg] Mona Yeungault Other [facility] Other 06-30-2022 12:00-0400 Respiratory rate 18 /min Mona Yeungault Other [facility] Other 06-30-2022 12:00-0400 SaO2% (BldA) [Mass fraction] 97 % Mona Mikel Other [facility] Other 06-30-2022 12:00-0400 Systolic blood pressure 136 mm[Hg] Mona Morin Other [facility] Other 02-03-2022 11:00-0400 Body height 157.48 cm Mona Morin Other [facility] Other 02-03-2022 11:00-0400 Body mass index (BMI) [Ratio] 35.84 kg/m2 Mona Morin Other [facility] Other 02-03-2022 11:00-0400 Body temperature 98.2 [degF] Mona Morin Other [facility] Other 02-03-2022 11:00-0400 Body weight 88.91 kg Mona Morin Other [facility] Other 02-03-2022 11:00-0400 Diastolic blood pressure 96 mm[Hg] Mona Morin Other [facility] Other 02-03-2022 11:00-0400 Respiratory rate 18 /min Mona Morin Other [facility] Other 02-03-2022 11:00-0400 SaO2% (BldA) [Mass fraction] 99 % Mona Yeungault Other [facility] Other 02-03-2022 11:00-0400 Systolic blood pressure 157 mm[Hg] Mona Yeungault Other [facility] Other 08-31-2021 10:00-0500 Body height 157.48 cm Kaylie Ginty Other [facility] Other 08-31-2021 10:00-0500 Body mass index (BMI) [Ratio] 35.66 kg/m2 Kaylie Ginty Other [facility] Other 08-31-2021 10:00-0500 Body temperature 98.7 [degF] Kaylie Ginty Other [facility] Other 08-31-2021 10:00-0500 Body weight 88.45 kg Kaylie Ginty Other [facility] Other 08-31-2021 10:00-0500 Respiratory rate 18 /min Kaylie Ginty Other [facility] Other 08-31-2021 10:00-0500 SaO2% (BldA) [Mass fraction] 95 % Kaylie Ginty Other [facility] Other Encounters Encounter Date Encounter Type Care Provider Facility Start: 01-11-2024 End: 01-11-2024 ambulatory ELSI AICHHOLZ Not Available Start: 12-24-2023 Telephone encounter Saeid Gooden [facility] Start: 11-04-2023 End: 11-04-2023 ambulatory TD BERUMEN [facility] Start: 10-26-2023 End: 10-26-2023 ambulatory ELSI AICHHOLZ Not Available Start: 09-13-2023 End: 09-13-2023 ambulatory ELSI AICHHOLZ Not Available Start: 05-03-2023 End: 05-03-2023 ambulatory Priyanka Jones Other [facility] Other Start: 05-03-2023 Office outpatient visit 15 minutes Priyanka Jones [facility] Start: 01-22-2023 End: 01-23-2023 ambulatory MONA MORIN Facility:[facility] Start: 11-23-2022 End: 11-23-2022 ambulatory Mona Morin Other [facility] Other Start: 11-23-2022 Telephone encounter Mona Bretrevorcarolann barrett [facility] [employer] Start: 11-20-2022 End: 11-20-2022 ambulatory Mona Morin Other [facility] Other Start: 11-20-2022 Encounter by compute r link Mona Morin [facility] Start: 11-17-2022 End: 11-18-2022 ambulatory MONA MORIN [employer] Other Start: 11-17-2022 Office outpatient visit 15 minutes Mona Yeungault [facility] Start: 10-06-2022 End: 10-06-2022 ambulatory Mona Morin Other [facility] Other Start: 10-06-2022 Telephone encounter Mona Breaul barrett [facility] Start: 09-29-2022 End: 09-29-2022 ambulatory PHYSICIAN NO [facility] Work Phone: Start: 09-29-2022 End: 09-29-2022 Departed Referred PHYSICIAN NO [facility] [place] Work Phone: Start: 09-28-2022 End: 09-28-2022 ambulatory Mona Morin Other [facility] Other Start: 09-28-2022 Office outpatient visit 15 minutes Mona Morin [facility] Start: 09-14-2022 End: 09-14-2022 ambulatory Mona Morin Other [facility] Other Start: 09-14-2022 Telephone encounter Mona Breaul t [facility] Start: 07-14-2022 End: 07-14-2022 ambulatory Mona Mikel Other [facility] Other Start: 07-14-2022 Office outpatient visit 15 minutes Mona Mikel [facility] Start: 06-30-2022 End: 06-30-2022 ambulatory Mona Mikel Other [facility] Other Start: 06-30-2022 Office outpatient visit 15 minutes Mona Mikel [facility] Start: 04-02-2022 End: 04-02-2022 ambulatory Mona Mikel Other [facility] Other Start: 04-02-2022 Telephone encounter Mona Breaul t [facility] Start: 03-31-2022 Telephone encounter Mona Breaul t [facility] Start: 03-31-2022 End: 04-01-2022 ambulatory MONA MIKEL [employer] Other Start: 02-03-2022 End: 02-03-2022 ambulatory Mona Mikel Other [facility] Other Start: 02-03-2022 Office outpatient visit 15 minutes Mona Mikel [facility] Start: 12-10-2021 End: 12-10-2021 ambulatory Mona Mikel Other [facility] Other Start: 12-10-2021 Telephone encounter Mona Breaul t [facility] Start: 11-10-2021 End: 11-10-2021 ambulatory Mona Mikel Other [facility] Other Start: 11-10-2021 Telephone encounter Mona Breaul t [facility] Start: 09-03-2021 End: 09-03-2021 ambulatory Kaylie Ginty Other [facility] Other Start: 09-03-2021 Telephone encounter Kaylie Echeverria [facility] Start: 08-31-2021 End: 08-31-2021 ambulatory Kaylie Ginty Other [facility] Other Start: 08-31-2021 Office outpatient visit 15 minutes Kaylie Devoranty [facility] Procedures Date Procedure Procedure Detail Performing Clinician Start: 10-11-2017 Mammography Saeid hogue CMA Start: 02-05-2017 Microscopic observat ion [Identifier] in Cervix by Cyto stain Saeid Gooden CMA Plan of Treatment Date Care Activity Detail Author Start: 05-26-2024 Adult BMI Screening Adult BMI Screen ing [facility] Start: 05-26-2024 Tobacco Screening Tobacco Screening [facility] Start: 05-28-2023 Influenza vaccination Influenza Vacc ine [facility] Start: 09-29-2022 Aerobic Culture Aerobic Culture [facility] Start: 09-29-2022 Anaerobic Culture Anaerobic Culture [facility] Start: 09-29-2022 Microscopic observat ion [Identifier] in Unspecified specimen by Gram stain Gram Stain [facility] Start: 02-06-2020 Screening for malign ant neoplasm of cervix Pap Smear [facility] Start: 10-11-2018 Screening for malign ant neoplasm of breast Mammogram [facility] Start: 12-06-1995 DTaP,Tdap and Td Vaccines (1 - Tdap) DTaP,Tdap and Td Vaccines (1 - Tdap) [facility] Start: 1994 Adult BMI Follow Up Plan Adult BMI Follow Up Plan [facility] Start: 1988 Depression Screening Depression Scre ening [facility] Bacteria identified in Unspecified specimen by Aerobe culture [facility] Bacteria identified in Unspecified specimen by Anaerobe culture [facility] Immunizations Immunization Date Immunization Notes Care Provider Fa cility 10-01-2020 influenza virus vacc ine, unspecified formulation Saeid Giacomo [facility] Payers Date Payer Category Payer Medicaid [id number] 2022 Medicaid [place] [id number] 2022-Present [address] [place] [address] [id number] 2017 Unknown ANTHEM BCBS OUT OF STATE PPO/TRUST [id number] 2017-Present [phone] [address] [place] [address] [id number] 1976 Unknown [id number] 93 1976 Unknown [id number] 93 1976 Unknown [id number] 93 1976 Unknown [id number] 1976 Unknown [id number] 259 1976 Unknown [id number] 259 1976 Unknown [id number] 259 1959 Unknown [id number] 1959 Unknown [id number] Blue Cross Blue Shield NLM [id number] Self-pay Self Pay [id number] Unknown [id number] Social History Date Type Detail Facility Unknown if ever smoked [facility] [employer] Other Start: 11-06-2020 End: 05-26-2023 Sex Assigned At [facility] [employer] Other Start: 1975 Sex Assigned At Female F [facility] Start: 08-23-2017 [facility] Start: 08-23-2017 Tobacco use and exposure Smokeless tobacco non-user [facility] Start: 05-26-2023 Alcohol intake 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 documented in this encounter [facility] 12-24-2023 Telephone encount er Note Attempted to contact patient to reschedule appointment on 05/31/[address] Verdugo is out of the office. No Vm set up to leave a message. [facility] 05-03-2023 Evaluation note Encounter Date [...] fever. Patient/Parent verbalized understanding of treatment plan. [facility] Other 02-21-2023 Evaluation note* Encounter Date Diagnosis [...] weeks for the cough to go away [facility] Other 01-02-2023 Evaluation note* Encounter Date Diagnosis [...] obtained for C&S. Will call with results. [facility] Other 12-19-2022 Evaluation note* Encounter Date Diagnosis Assessment Notes Treatment Notes Treatment Clinical Notes Aug, Gastroesophageal ref lux disease, unspecified whether esophagitis present (ICD-10 - K21.9) Aug, PCOS (polycystic ovarian syndrome) (ICD-10 - E28.2) [facility] Other 10-18-2022 Evaluation note* Encounter Date Diagnosis Assessment Notes Treatment Notes Treatment Clinical Notes Jun, Fibromyalgia (ICD-10 - M79.7) Continue current treatment regimen. Printed off script to use as needed [facility] Other 10-04-2022 Evaluation note* Encounter Date Diagnosis Assessment Notes Treatment Notes Treatment Clinical Notes Jun, Primary hypertension (ICD-10 - I10) Jun, SJ (generalized anxiety disorder) (ICD-10 - F41.1) [facility] Other 07-07-2022 Evaluation note* Encounter Date Diagnosis Assessment Notes Treatment Notes Treatment Clinical Notes Mar, Right hip pain (ICD-10 - M25.551) [facility] Other 05-10-2022 Evaluation note* Encounter Date Diagnosis Assessment Notes Treatment Notes Treatment Clinical Notes January, Gastroesophageal ref lux disease, unspecified whether esophagitis present (ICD-10 - K21.9) Continue to take medication as directed. January, PCOS (polycystic ovarian syndrome) (ICD-10 - E28.2) Take medication as directed with food [facility] Other 03-16-2022 Evaluation note* Encounter Date Diagnosis Assessment Notes Treatment Notes Treatment Clinical Notes Nov, Sacral back pain (ICD-10 - M53.3) [facility] Other 02-14-2022 Evaluation note* Encounter Date Diagnosis Assessment Notes Treatment Notes Treatment Clinical Notes Oct, Gastroesophageal ref lux disease, unspecified whether esophagitis present (ICD-10 - K21.9) [facility] Other 02-14-2022 Evaluation note* Encounter Date Diagnosis Assessment Notes Treatment Notes Treatment Clinical Notes Oct, Sacral back pain (ICD-10 - M53.3) [facility] Other 2021 Evaluation note* Encounter Date Diagnosis [...] Patient care instructions given in writting by [facility] document. [facility] Other Evaluation noteNo InformationNort [employer] Other Evaluation noteNo assessment information available [facility] Work Phone: History general Narrative - Reported* Type Description Date Medical History asthma Medical History pcos Medical History Fibromyalgia Medical History Hypothyroidism - euthyroid Medical History chronic fatigue Surgical History gall bladder Surgical History vein removed in bilaterally Surgical History gastric sleeve Hospitalization History see above Hospitalization History CHILD X'S 5 [facility] Other InstructionsNot on filedocumented in this encounter [facility] for visit NarrativeDermatology Referral Update [facility] Other Summary Purpose Family History No Family [...] and content) DATE CREATED AUTHOR 03/27/2022 [facility] DATE CREATED AUTHOR AUTHOR'S ORGANIZ ATION 01/29/2023 [facility] DATE CREATED AUTHOR AUTHOR'S ORGANIZ ATION 11/08/2023 [facility] DATE CREATED AUTHOR AUTHOR'S ORGANIZ ATION 01/12/2024 [facility] [employer] Care Teams (unrecognized sec tion and content) Team Status: Inactive Member Role Status Dates PHYSICIAN NO FAMILY Primary Care Provider Active CHRISTIANO Jha Attending Provider Active Team Status: Active Member Role Status Dates PHYSICIAN NO FAMILY Primary Care Provider Active [employer] Relationship Specialty Start Date End Date Mona Morin APRN-FNP [address] [place] [address] PCP - General Family Medicine 01/08/21 Goals [...] BE BASED ON THE PRIMARY CLINICAL RECORDS. [email or web address] [facility]. provides no warranty or guarantee of the accuracy or completeness of information in this document.
== END 2024-01-17 09:25 | disposition home or self-care (01) ==
LOC: VC 09:24
PROVIDERS: PCP Nurse Practitioner; Visit Provider Radiology Diagnostic Radiology
DX: Z48.812 Encounter for surgical aftercare following surgery on the circulatory system (principal); I80.01 Phlebitis and thrombophlebitis of superficial vessels of right lower extremity
CPT/HCPCS: 93971; G0463

== ENCOUNTER 2024-01-17 12:24 | Outpatient (OUT) | payer BC, MEDICAID, SELFPAY ==
--- NOTE | 2024-01-17 12:59 | P.CN_ITS ---
Consult Note: HPI Data of Consult Patient: known to practice within the last 3 years Consult date: 01/17/24 Requesting Physician: Montana Bergeron MD Primary Care Provider: Halima Moncada NP Consult Narrative Reason for consult: Neck pain, right upper extremity pain Narrative: 48yof who presents for assessment. Continues to have right sided neck and shoulder pain, as before, but now also has significant radicular pain into right upper extremity. States she has loss of sensation in right thumb. Cervical CT consistent with mulitlevel spondylosis, though no acute fracture seen. In past 3 months, has undergone >6 weeks of physical therapy, chiropractor, home exercises, stretches, oral steroids, NSAIDs, all without benefit. Uses gabapentin, norco, tizanidine. denies adverse med side effects. cc:: CC: Montana Bergreon MD Review of Systems ROS Status of ROS 10 or more systems reviewed and unremark able except as noted in history and below [facility] Medical History (Updated 01/17/24 @ 13:05 by Montana Bergeron MD) Varicose vein of leg ?I83.90 - Asymptomatic varicose veins of unspecified lower extremity (ICD-10) Diabetes ?E11.9 - Type 2 diabetes mellitus without complications (ICD-10) PCOS (polycystic ovarian syndrome) ?E28.2 - Polycystic ovarian syndrome (ICD-10) Migraine ?G43.909 - Migraine, unspecified, not intractable, without status migrainosus (ICD-10) Hyperlipidemia ?E78.5 - Hyperlipidemia, unspecified (ICD-10) Hypothyroid ?E03.9 - Hypothyroidism, unspecified (ICD-10) HTN (hypertension) ?I10 - Essential (primary) hypertension (ICD-10) History of gastroesophageal reflux (GERD) ?Z87.19 - Personal history of other diseases of the digestive system (ICD-10) 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, unspecified (ICD-10) Depression ?F32.A - Depression, unspecified (ICD-10) Chronic sinusitis ?J32.9 - Chronic sinusitis, unspecified (ICD-10) Chronic fatigue syndrome with fibromyalgia ?G93.32 - Myalgic encephalomyelitis/chronic fatigue syndrome (ICD-10) ?M79.7 - Fibromyalgia (ICD-10) Surgical History History of vein stripping ?Z98.890 - Other specified postprocedural states (ICD-10) H/O gastric sleeve ?Z90.3 - Acquired absence of stomach [part of] (ICD-10) Hx of cholecystectomy ?Z90.49 - Acquired absence of other specified parts of digestive tract (ICD- 10) Meds Home Medications and Allergies Home Medications ?Medication ?Instructions ?Recorded ?Confirmed ?Type atorvastatin 10 mg tablet 10 mg PO QAM 01/11/24 01/13/24 History cetirizine 10 mg tablet 10 mg PO DAILY 01/11/24 01/13/24 History gabapentin 300 mg capsule 300 mg PO BID 01/11/24 01/13/24 History levothyroxine 50 mcg tablet 50 mcg PO QAM 01/11/24 01/13/24 History lisinopril 2.5 mg tablet 2.5 mg PO DAILY 01/11/24 01/13/24 History minocycline 100 mg capsule 100 mg PO QPM 01/11/24 01/13/24 History omeprazole 20 mg capsule,delayed 20 mg PO DAILY 01/11/24 01/13/24 History release prednisone 20 mg tablet 20 mg PO DAILY 01/11/24 01/13/24 History ropinirole 0.25 mg tablet 0.25 mg PO QPM 01/11/24 01/13/24 History semaglutide 1 mg/dose (4 mg/3 mL) 1 mg subcut QWEEK 01/11/24 01/13/24 History subcutaneous pen injector (Ozempic) sertraline 100 mg tablet 200 mg PO QAM 01/11/24 01/13/24 History tizanidine 4 mg tablet 8 mg PO DAILY 01/11/24 01/13/24 History Allergies Allergy/AdvReac Type Severity Reaction Status Date / Time No Known Drug Allergies Allergy Verified 01/11/24 21:40 Exam Narrative Exam Narrative: Psych-alert and oriented x 3.? Attentive and appropriate, constitutionally normal, displays normal mood and affect per situation.? There are no obvious deficits in memory, reasoning, or intellect.? Skin-no obvious rashes, bruising, or erythema noted to the patient's area of pain.? Extremities-upper extremities are warm with minimal edema and palpable pulses. Cervical- tenderness to palpation noted in the cervical spine and paraspinal musculature.?Multiple trigger points expressed on palpation. Pain is elicited with flexion, extension, and lateral rotation of the cervical spine.? Range of motion is diminished due to pain. Facet loading maneuvers are positive.? Strength-unremarkable and within normal limits with the exception to the right biceps, triceps.? Sensory-no notable sensory deficits in the bilateral upper extremities to touch or pinprick with the exception to decreased sensation to the right C4, 5, 6 dermatomal distribution.? Coordination remains intact.? Gait remains non-antalgic. Assessment and Plan Assessment and Plan (1) Myofascial pain: (2) Right shoulder pain: Qualifiers: Chronicity: chronic Qualified Code(s): M25.511 - Pain in right shoulder; G89.29 - Other chronic pain (3) Cervical radiculopathy: (4) Cervical stenosis of spinal canal: Plan 48yof who presents for assessment. Failed conservative measures, as noted. Imaging reviewed, as noted. Given persistence of neck and shoulder pain, will proceed with planned trigger point injections. In terms of her radiating right arm pain, will have her undergo cervical mri without contrast. She is in agreement. Medications reviewed. UDS reviewed. Positive for THC, so will be nonopioid from our clinic, though we do not prescribe her norco. Follow up after MRI. Procedure: Right splenius capitis, sternocleidomastoid, trapezius trigger point injection Medications: Bupivacaine 0.25% 4cc, kenalog 40mg Diagnosis: Cervical myofascial pain syndrome I explained the details of the procedure to the patient including the risks, benefits, and alternatives.? We had an informed discussion.? The patient verbalized understanding and signed the consent form.? All questions were answered appropriately.? A time-out was performed.? After obtaining a comfortable seated position, the skin overlying the painful trigger areas was prepped with alcohol 3 times.?? The needle was inserted in a sterile manner and was directed into the subcutaneous tissue. 1cc of the above medication was gently injected without any resistance after negative aspiration for blood or other bodily fluids.?This was completed in five total sites. The needle was removed and pressure was applied at the injection site to decrease the incidence of ecchymosis and hematoma formation.? A sterile bandage was applied.
== END 2024-01-17 12:25 | disposition home or self-care (01) ==
LOC: PM 12:24
PROVIDERS: PCP Nurse Practitioner; Visit Provider Anesthesiology
DX: Z48.812 Encounter for surgical aftercare following surgery on the circulatory system (principal); I80.01 Phlebitis and thrombophlebitis of superficial vessels of right lower extremity; M79.18 Myalgia, other site; M25.511 Pain in right shoulder; G89.29 Other chronic pain; M54.12 Radiculopathy, cervical region; M48.02 Spinal stenosis, cervical region
CPT/HCPCS: 20553; 93971; G0463

== ENCOUNTER 2024-01-31 09:00 | Outpatient (OUT) | payer BC, MEDICAID, SELFPAY ==
--- NOTE | 2024-01-31 09:02 | VEIN_ITS ---
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 HISTORY: I83.813 Painful varicose veins Pre-operative Diagnosis: CEAP class C3 venous insufficiency with pain, tenderness, edema and incompetent left varicose and saphenous vein(s), chronic venous insufficiency left leg secondary to venous incompetence Post-operative Diagnosis: CEAP class C3 venous insufficiency with pain, tenderness, edema and incompetent left varicose and saphenous vein(s), chronic venous insufficiency left leg secondary to venous incompetence Procedure Performed: 1. Ultrasound-guided microfoam chemical ablation with Varithenaregistered 2. Intraoperative ultrasound guidance Anesthesia: None Indications for Procedure: 48-year-old female who presents with a long history of lower extremity pain and swelling varicose veins. The patient failed conservative medical therapy including medical compression stockings, exercise and analgesics. Prior procedures include intravenous laser ablation. Multiple incompetent varicosities of the left leg. Duplex scan showed reflux and enlarged diameters up to 5 mm. The patient underwent informed consent including management options where the complications of infection, bleeding, pain, and skin injury were discussed. Particular attention was spent discussing thrombus extension and deep vein thrombosis as well as the possibility of pulmonary embolus and treatment with oral or injectable blood thinners. Procedure: The patient walked to the procedure room. All applicable staff donned appropriate apparel. A procedure timeout was performed to confirm correct patient, correct extremity, correct procedure, and correct room set-up including presence of all applicable supplies, devices, and drugs. A duplex ultrasound, performed by myself confirmed the location and incompetence of branch saphenous varicosities and their course was marked on the skin together with the dilated tributaries. The extent of treatment of the vein and the associated varicosities was determined through ultrasound mapping. The skin was prepped and then punctured with a butterfly needle and advanced under ultrasound guidance. The Varithenaregistered canister was activated and the canister was primed and purged as required in the instructions for use. Varithenaregistered was drawn into a sterile syringe. 6 cc injected into incompetent left distal great saphenous vein with flow into multiple branches saphenous varicosities Varithenaregistered was slowly administered at 0.5-1.0 cc/second with close observation by ultrasound of its course in the vessels. Total volume utilized was: 6cc. Following administration of Varithenaregistered the leg was elevated and the patient was asked to repeatedly dorsiflex the ankle to limit flow of Varithenaregistered into perforating veins. Once appropriate spasm had been confirmed in the treated veins, the vascular catheter was removed from the leg and light pressure was applied over the puncture site for hemostasis. The common femoral and deep superficial veins were then evaluated for flow and compressibility prior to dressing placement. The lower extremity was kept elevated at 45 degrees above the horizontal and cording material was applied over the saphenous segments and tributaries to allow for eccentric compression over the target vessels including the targeted saphenous vein(s). A multilayer dressing was applied consisting of foam pads, coban and thigh-high 20-30 mm Hg compression elastic support hose were placed on the patient. The leg was lowered only after compression had been applied and the patient was immediately ambulatory. The patient ambulated 10 minutes under supervision and was without apparent concerns at time of release. Post-care instructions include advising patient to keep post-treatment bandages in place and dry for 48 hours, avoid extended periods of inactivity, avoid heavy exercise for one week, wear compression stockings on the treated leg continuously for two weeks, to walk daily for 10 minutes over the next month. The patient was instructed to take an anti-inflammatory medicine as needed and to follow up for color duplex scan of the Saphenous veins, the treated branch saphenous varicosities, the adjacent deep veins, and additional treatment within 7 days. PERSONNEL: Garrett Arellano RN Electronically authenticated by: TRE VALDOVINOS Date: 01/31/2024 10:05
--- OUTSIDE RECORDS SUMMARY | 2024-01-31 09:20 | XMS_ITS | CCD ---
Author Organization [facility] Care Team Providers Care Equipment Processer Storage Name Role Phone Devorachrissie Kaylie Unavailable Mona Morin Unavailable NO FAMILY, PHYSICIAN Primary Care Provider Unava ilCHRISTIANO Lazaro Attending Provider [phone] MONA MORIN Primary Care Unavailable MISC, DR ELIAS Attending Unavailable MISC, DR ELIAS Admitting Unavailable AICHHOLShannan, PREFORMING MACHINE OPERATOR ELSI Consulting Unavailable MONA MORIN Consulting Unavailable MIKEL, MONA Primary Care Unavailable MIKEL, MONA Admitting Unavailable MIKEL, MONA Attending Unavailable MIKEL, MONA Primary Care Unavailable MIKEL, MONA Admitting Unavailable MIKEL, MONA Attending Unavailable MIKEL MONA Consulting Unavailable Priyanka Jones Unavailable TD BERUMEN Attending Unavailable MIKEL MONA Referring Unavailable MIKEL, MONA Primary Care Unavailable Mikel LAST CLEANER-PUBLIC RELATIONS WRITER, Mona Primary Care Provide r ELSI SUAREZ Attending Unavailable ELSI SUAREZ Attending Unavailable ELSI SUAREZ Attending Unavailable Elyssa MCBRIDE, [place] Mosqueda Attending Unavailable Allergies Allergy Classification Reported Allergen(s) Allergy Type Date of Onset Reaction(s) Facility (5 sources) Cephalexin Drug Allergy rash Dtime Other (12 sources) Cephalexin Drug Allergy rash Dtime Other (1 source) Sulfamethoxazole / Trimethoprim Drug Allergy 3 [facility] Medications Current Medications Medication Drug Class(es) Dates Sig (Normalized) Sig (Original) [id number] 200 actuat albuterol 0.09 mg/actuat metered dose [...] oral solution (2 sources) alpha-Adrenergic Agonist, Uncompetitive Z-unaalx-Q-aspartate Receptor Antagonist, Sigma-1 Agonist Start: 08-31-2021 take [...] mouth once daily with food 30 tablet 05/26/2023 Active Start: 03-26-2022 take 1 tablet [...] pyogenes Org specific cx Ql (Throat) Negative Dtime Other Quick Strep Dtime Other INSULINon 01-26-2023 Insulin 21.3 uIU/mL Normal 2.6-24.9 [facility] Comment on above: Performed By: #### I NSULIN #### [facility] [address] [place] [address] Dr. Yvan Manzano CORTISOLon 01-23-2023 Cortisol 11.2 ug/dL Normal 6.2-19.4 [facility] Comment on above: Result Comment: [place] Note: The reference interval and flagging for this test is for an AM collection. If this is a PM collection please use: Cortisol PM: 2.3-11.9 [facility] also offers: [id number]: Cortisol- AM 177619: Cortisol- PM Performed By: #### C BC #### [facility] [address] [place] [address] Dr. Yvan Manzano CBC AUTO DIFFon 01-22-2023 BASO # 0.1 103/ul Normal 0.0-0.1 [facility] Comment on above: Performed By: #### C BC #### [facility] [address] [place] [address] Dr. Yvan Manzano Basophils/100 WBC (Bld) 0.9 % Normal 0.2-2.0 [facility] Comment on above: Performed By: #### C BC #### [facility] [address] [place] [address] Dr. Yvan Manzano EO # 0.3 103/ul Normal 0.0-0.7 [facility] Comment on above: Performed By: #### C BC #### [facility] [address] [place] [address] Dr. Yvan Manzano Eosinophils/100 WBC (Bld) 5.7 % Normal 0.9-7.0 [facility] Comment on above: Performed By: #### C BC #### [facility] [address] [place] [address] Dr. Yvan Manzano Erythrocyte distribution width (RBC) [Ratio] 14.6 % Normal 11.0-15.0 [facility] Comment on above: Performed By: #### C BC #### [facility] [address] [place] [address] Dr. Yvan Manzano Hematocrit (Bld) [Volume fraction] 36.8 % Normal 36.0-48.0 [facility] Comment on above: Performed By: #### C BC #### [facility] [address] [place] [address] Dr. Yvan Manzano Hemoglobin (Bld) [Mass/Vol] 11.4 g/dL Critically low 12.0-16.0 [facility] Comment on above: Performed By: #### C BC #### [facility] [address] [place] [address] Dr. Yvan Manzano IG # 0.02 10e3/ul Normal 0.00-0.03 [facility] Comment on above: Performed By: #### C BC #### [facility] [address] [place] [address] Dr. Yvan Manzano IG % 0.3 % Normal 0.0-0.5 [facility] Comment on above: Performed By: #### C BC #### [facility] [address] [place] [address] Dr. Yvan Manzano LYMPH # 1.5 103/ul Normal 1.2-3.8 [facility] Comment on above: Performed By: #### C BC #### [facility] [address] [place] [address] Dr. Yvan Manzano Lymphocytes/100 WBC (Bld) 25.3 % Normal 20.5-60.0 [facility] Comment on above: Performed By: #### C BC #### [facility] [address] [place] [address] Dr. Yvan Manzano MANUAL DIFF REQ NO Normal [facility] Comment on above: Performed By: #### C BC #### [facility] [address] [place] [address] Dr. Yvan Manzano MCH (RBC) [Entitic mass] 25.2 pg Critically low 26.7-34.0 [facility] Comment on above: Performed By: #### C BC #### [facility] [address] [place] [address] Dr. Yvan Manzano MCHC (RBC) [Mass/Vol] 31.0 g/dL Normal 29.9-35.2 [facility] Comment on above: Performed By: #### C BC #### [facility] [address] [address] [address] Yvan Manzano MCV (RBC) [Entitic vol] 81.4 fL Normal 81.0-99.0 [facility] Comment on above: Performed By: #### C BC #### [facility] [address] [address] [address] Yvan Manzano MONO # 0.4 103/ul Normal 0.3-0.8 [facility] Comment on above: Performed By: #### C BC #### [facility] [address] [place] [address] Dr. Yvan Manzano Monocytes/100 WBC (Bld) 7.7 % Normal 1.7-12.0 [facility] Comment on above: Performed By: #### C BC #### [facility] [address] [place] [address] Dr. Yvan Manzano NEUT # 3.5 103/ul Normal 1.4-6.5 [facility] Comment on above: Performed By: #### C BC #### [facility] [address] [place] [address] Dr. Yvan Manzano Neutrophils/100 WBC (Bld) 60.1 % Normal 43.0-75.0 [facility] Comment on above: Performed By: #### C BC #### [facility] [address] [place] [address] Dr. Yvan Manzano Platelet mean volume (Bld) [Entitic vol] 8.8 fL Critically low 9.5-13.5 [facility] Comment on above: Performed By: #### C BC #### [facility] [address] [place] [address] Dr. Yvan Manzano PLT 347 103/ul Normal 150-450 [facility] Comment on above: Performed By: #### C BC #### [facility] [address] [place] [address] Dr. Yvan Manzano RBC 4.52 106/ul Normal 4.20-5.40 [facility] Comment on above: Performed By: #### C BC #### [facility] [address] [place] [address] Dr. Yvan Manzano WBC 5.7 103/ul Normal 4.0-11.0 [facility] Comment on above: Performed By: #### C BC #### [facility] [address] [place] [address] Dr. Yvan Manzano FREE T4on 01-22-2023 Free T4 [Mass/Vol] 0.84 ng/dL Normal 0.76-1.46 [facility] Comment on above: Performed By: #### F T4 #### [facility] [address] [place] [address] Dr. Yvan Manzano LIPID PROFILEon 01-22-2023 CHOL-HDL RATIO NORM SEE BELOW Normal [facility] Comment on above: Result Comment: 3.3 - 4.4 LOW RISK 4.4 - 7.1 AVERAGE RISK 7.1 - 11.0 MODERATE RISK >11.0 HIGH RISK Performed By: #### T SH, LIPID #### [facility] [address] [place] [address] Dr. Yvan Manzano Cholesterol [Mass/Vol] 264 mg/dL Critically high <=200 [facility] Comment on above: Performed By: #### T SH, LIPID #### [facility] [address] [place] [address] Dr. Yvan Manzano Cholesterol in HDL [Mass/Vol] 52 mg/dL Normal 40-60 [facility] Comment on above: Performed By: #### T SH, LIPID #### [facility] [address] [place] [address] Dr. Yvan Manzano Cholesterol in LDL [Mass/Vol] 173.6 mg/dL Normal [facility] Comment on above: Performed By: #### T SH, LIPID #### [facility] [address] [place] [address] Dr. Yvan Manzano Cholesterol.total/Ch olesterol in HDL [Mass ratio] 5.1 {ratio} Normal [facility] Comment on above: Performed By: #### T SH, LIPID #### [facility] [address] [place] [address] Dr. Yvan Manzano HDL NORMAL > or = 60 mg/dl - LOW CARDIOVASCULAR RISK <40 mg/dl - HIGH CARDIOVASCULAR RISK Normal [facility] Comment on above: Performed By: #### T SH, LIPID #### [facility] [address] [address] [address] Yvan Manzano LDL CALC NORMAL SEE BELOW Normal [facility] Comment on above: Result Comment: <100 mg/dl OPTIMAL 100 - 129 mg/dl NEAR OR ABOVE OPTIMAL 130 - 159 mg/dl BORDERLINE HIGH 160 - 189 mg/dl HIGH >190 mg/dl VERY HIGH Performed By: #### T SH, LIPID #### [facility] [address] [address] [address] Yvan Manzano Triglyceride [Mass/Vol] 192 mg/dL Critically high <=150 [facility] Comment on above: Performed By: #### T SH, LIPID #### [facility] [address] [place] [address] Dr. Yvan Manzano VLDL CALC 38.4 mg/dL Normal [facility] Comment on above: Performed By: #### T SH, LIPID #### [facility] [address] [place] [address] Dr. Yvan Manzano TSHon 01-22-2023 TSH 5.749 uIU/mL Critically high 0.358-3.740 [facility] Comment on above: Performed By: #### T SH, LIPID #### [facility] [address] [place] [address] Dr. Yvan Manzano GLYCOHEMOGLOBIN A1Con 2022 ADA RECOMMENDATION SEE BELOW Normal [facility] Comment on above: Result Comment: ADA RECOMMENDED LIMIT 4.0 - 6.0 ADA THERAPEUTIC TARGET < 7.0 ACTION SUGGESTED > 7.0 Performed By: #### A 1C #### [facility] [address] [address] [address] Yvan Manzano Glucose [Mass/Vol] 137 mg/dL Normal [facility] Comment on above: Performed By: #### A 1C #### [facility] [address] [place] [address] Dr. Yvan Manzano HbA1c (Bld) [Mass fraction] 6.4 % Critically high 4.5-6.2 [facility] Comment on above: Performed By: #### A 1C #### [facility] [address] [place] [address] Dr. Yvan Manzano PROF 14(COMP METB)on 023 Albumin [Mass/Vol] 3.4 g/dL Normal 3.4-5.0 [facility] Comment on above: Performed By: #### C MP #### [facility] [address] [place] [address] Dr. Yvan Manzano Albumin/Globulin [Mass ratio] 0.9 {ratio} Normal [facility] Comment on above: Performed By: #### C MP #### [facility] [address] [place] [address] Dr. Yvan Manzano ALP [Catalytic activity/Vol] 74 U/L Normal 46-116 [facility] Comment on above: Performed By: #### C MP #### [facility] [address] [place] [address] Dr. Yvan Manzano ALT [Catalytic activity/Vol] 25 U/L Normal 14-59 [facility] Comment on above: Performed By: #### C MP #### [facility] [address] [place] [address] Dr. Yvan Manzano Anion gap [Moles/Vol] 9.4 mmol/L Normal [facility] Comment on above: Performed By: #### C MP #### [facility] [address] [place] [address] Dr. Yvan Manzano AST [Catalytic activity/Vol] 17 U/L Normal 15-37 [facility] Comment on above: Performed By: #### C MP #### [facility] [address] [place] [address] Dr. Yvan Manzano Bilirubin [Mass/Vol] 0.1 mg/dL Critically low 0.2-1.0 [facility] Comment on above: Performed By: #### C MP #### [facility] [address] [place] [address] Dr. Yvan Manzano Calcium [Mass/Vol] 9.2 mg/dL Normal 8.5-10.1 [facility] Comment on above: Performed By: #### C MP #### [facility] [address] [address] [address] Yvan Manzano Chloride [Moles/Vol] 101 mmol/L Normal 98-107 [facility] Comment on above: Performed By: #### C MP #### [facility] [address] [address] [address] Yvan Manzano CO2 [Moles/Vol] 30.4 mmol/L Normal 21.0-32.0 [facility] Comment on above: Performed By: #### C MP #### [facility] [address] [address] [address] Yvan Manzano Creatinine [Mass/Vol] 0.71 mg/dL Normal 0.55-1.02 [facility] Comment on above: Performed By: #### C MP #### [facility] [address] [place] [address] Dr. Yvan Manzano EGFR-AF GUYANESE >60 Normal >=60 [facility] Comment on above: Performed By: #### C MP #### [facility] [address] [address] [address] Yvan Manzano EGFR-NON AF GUYANESE >60 Normal >=60 [facility] Comment on above: Performed By: #### C MP #### [facility] [address] [address] [address] Yvan Manzano Globulin (S) [Mass/Vol] 4.0 g/dL Normal [facility] Comment on above: Performed By: #### C MP #### [facility] [address] [address] [address] Yvan Manzano Glucose [Mass/Vol] 138 mg/dL Critically high 74-106 [facility] Comment on above: Performed By: #### C MP #### [facility] [address] [address] [address] Yvan Manzano Potassium [Moles/Vol] 3.8 mmol/L Normal 3.5-5.1 [facility] Comment on above: Performed By: #### C MP #### [facility] [address] [address] [address] Yvan Manzano Protein [Mass/Vol] 7.4 g/dL Normal 6.4-8.2 [facility] Comment on above: Performed By: #### C MP #### [facility] [address] [address] [address] Yvan Manzano Sodium [Moles/Vol] 137 mmol/L Normal 136-145 [facility] Comment on above: Performed By: #### C MP #### [facility] [address] [place] [address] Dr. Yvan Manzano Urea nitrogen [Mass/Vol] 13.0 mg/dL Normal 7.0-18.0 [facility] Comment on above: Performed By: #### C MP #### [facility] [address] [place] [address] Dr. Yvan Manzano Urea nitrogen/Creatinine [Mass ratio] 18.3 mg/mg Normal [facility] Comment on above: Performed By: #### C MP #### [facility] [address] [place] [address] Dr. Yvan Manzano LIPID PROFILEon 03-31-2022 CHOL-HDL RATIO NORM SEE BELOW Normal [facility] Comment on above: Result Comment: 3.3 - 4.4 LOW RISK 4.4 - 7.1 AVERAGE RISK 7.1 - 11.0 MODERATE RISK >11.0 HIGH RISK Performed By: #### C MP, LIPID #### [facility] [address] [place] [address] Dr. Yvan Manzano Cholesterol [Mass/Vol] 229 mg/dL Critically high <=200 [facility] Comment on above: Performed By: #### C MP, LIPID #### [facility] [address] [address] [address] Yvan Manzano Cholesterol in HDL [Mass/Vol] 51 mg/dL Normal 40-60 [facility] Comment on above: Performed By: #### C MP, LIPID #### [facility] [address] [address] [address] Yvan Manzano Cholesterol in LDL [Mass/Vol] 150.4 mg/dL Normal [facility] Comment on above: Performed By: #### C MP, LIPID #### [facility] [address] [address] [address] Yvan Manzano Cholesterol.total/Ch olesterol in HDL [Mass ratio] 4.5 {ratio} Normal [facility] Comment on above: Performed By: #### C MP, LIPID #### [facility] [address] [address] [address] Yvan Manzano HDL NORMAL > or = 60 mg/dl - LOW CARDIOVASCULAR RISK <40 mg/dl - HIGH CARDIOVASCULAR RISK Normal [facility] Comment on above: Performed By: #### C MP, LIPID #### [facility] [address] [address] [address] Yvan Manzano LDL CALC NORMAL SEE BELOW Normal [facility] Comment on above: Result Comment: <100 mg/dl OPTIMAL 100 - 129 mg/dl NEAR OR ABOVE OPTIMAL 130 - 159 mg/dl BORDERLINE HIGH 160 - 189 mg/dl HIGH >190 mg/dl VERY HIGH Performed By: #### C MP, LIPID #### [facility] [address] [place] [address] Dr. Yvan Manzano Triglyceride [Mass/Vol] 138 mg/dL Normal <=150 [facility] Comment on above: Performed By: #### C MP, LIPID #### [facility] [address] [place] [address] Dr. Yvan Manzano VLDL CALC 27.6 mg/dL Normal [facility] Comment on above: Performed By: #### C MP, LIPID #### [facility] [address] [address] [address] Yvan Manzano MICROALB CREAT RATIO RANDOMo n 03-31-2022 mALB 1.4 mg/L Normal <=30.0 [facility] Comment on above: Performed By: #### M CRR #### [facility] [address] [place] [address] Dr. Yvan Manzano MALB CR RATIO 6.0 mg/g Normal 0.0-29.9 [facility] Comment on above: Performed By: #### M CRR #### [facility] [address] [place] [address] Dr. Yvan Manzano MALB CR RATIO RANGE SEE BELOW Normal [facility] Comment on above: Result Comment: NO M ICROALBUMINURIA 0-29 MG/G CLINICAL MICROALBUMINURIA 30-300 MG/G MACROALBUMINURIA >300 MG/G Performed By: #### M CRR #### [facility] [address] [address] [address] Yvan Manzano URINE CREAT 232.88 mg/dL Normal 20.00-300.00 [facility] Comment on above: Performed By: #### M CRR #### [facility] [address] [address] [address] Yvan Manzano PROF 14(COMP METB)on 022 Albumin [Mass/Vol] 3.6 g/dL Normal 3.4-5.0 [facility] Comment on above: Performed By: #### C MP, LIPID #### [facility] [address] [place] [address] Dr. Yvan Manzano Albumin/Globulin [Mass ratio] 0.9 {ratio} Normal [facility] Comment on above: Performed By: #### C MP, LIPID #### [facility] [address] [place] [address] Dr. Yvan Manzano ALP [Catalytic activity/Vol] 63 U/L Normal 46-116 [facility] Comment on above: Performed By: #### C MP, LIPID #### [facility] [address] [place] [address] Dr. Yvan Manzano ALT [Catalytic activity/Vol] 33 U/L Normal 14-59 [facility] Comment on above: Performed By: #### C MP, LIPID #### [facility] [address] [place] [address] Dr. Yvan Manzano Anion gap [Moles/Vol] 11.7 mmol/L Normal [facility] Comment on above: Performed By: #### C MP, LIPID #### [facility] [address] [place] [address] Dr. Yvan Manzano AST [Catalytic activity/Vol] 23 U/L Normal 15-37 [facility] Comment on above: Performed By: #### C MP, LIPID #### [facility] [address] [address] [address] Yvan Manzano Bilirubin [Mass/Vol] 0.2 mg/dL Normal 0.2-1.0 [facility] Comment on above: Performed By: #### C MP, LIPID #### [facility] [address] [address] [address] Yvan Manzano Calcium [Mass/Vol] 9.5 mg/dL Normal 8.5-10.1 [facility] Comment on above: Performed By: #### C MP, LIPID #### [facility] [address] [address] [address] Yvan Manzano Chloride [Moles/Vol] 102 mmol/L Normal 98-107 [facility] Comment on above: Performed By: #### C MP, LIPID #### [facility] [address] [place] [address] Dr. Yvan Manzano CO2 [Moles/Vol] 28.0 mmol/L Normal 21.0-32.0 [facility] Comment on above: Performed By: #### C MP, LIPID #### [facility] [address] [place] [address] Dr. Yvan Manzano Creatinine [Mass/Vol] 0.71 mg/dL Normal 0.55-1.02 [facility] Comment on above: Performed By: #### C MP, LIPID #### [facility] [address] [place] [address] Dr. Yvan Manzano EGFR-AF GUYANESE >60 Normal >=60 [facility] Comment on above: Performed By: #### C MP, LIPID #### [facility] [address] [place] [address] Dr. Yvan Manzano EGFR-NON AF GUYANESE >60 Normal >=60 [facility] Comment on above: Performed By: #### C MP, LIPID #### [facility] [address] [place] [address] Dr. Yvan Manzano Globulin (S) [Mass/Vol] 4.0 g/dL Normal [facility] Comment on above: Performed By: #### C MP, LIPID #### [facility] [address] [address] [address] Yvan Manzano Glucose [Mass/Vol] 87 mg/dL Normal 74-106 [facility] Comment on above: Performed By: #### C MP, LIPID #### [facility] [address] [address] [address] Yvan Manzano Potassium [Moles/Vol] 3.7 mmol/L Normal 3.5-5.1 [facility] Comment on above: Performed By: #### C MP, LIPID #### [facility] [address] [address] [address] Yvan Manzano Protein [Mass/Vol] 7.6 g/dL Normal 6.4-8.2 [facility] Comment on above: Performed By: #### C MP, LIPID #### [facility] [address] [address] [address] Yvan Manzano Sodium [Moles/Vol] 138 mmol/L Normal 136-145 [facility] Comment on above: Performed By: #### C MP, LIPID #### [facility] [address] [address] [address] Yvan Manzano Urea nitrogen [Mass/Vol] 14.0 mg/dL Normal 7.0-18.0 [facility] Comment on above: Performed By: #### C MP, LIPID #### [facility] [address] [address] [address] Yvan Manzano Urea nitrogen/Creatinine [Mass ratio] 19.7 mg/mg Normal [facility] Comment on above: Performed By: #### C MP, LIPID #### [facility] [address] [address] [address] Yvan Manzano XR hip RT min 2V(w/wo pelvis )*on 03-26-2022 XR hip RT min 2V(w/wo pelvis)* [facility] [place] [address] XRay Report Signed Patient: Tatiana Brewster MR#: [id number] : 1975 Acct:[id number] Age/Sex: 46 / F ADM Date: 03/26/22 [...] Michael Harper M.D.03/26/2022 3:38 PM Dictation Location: [place] [address] Transcribed By: [facility] 03/26/22 1538 Dictated By: Michael Harper DO 03/26/22 1534 Signed By: 03/26/22 1538 [facility] XR sacrum coccyx min 2Von XR sacrum coccyx min 2V [facility] [place] [address] XRay Report Signed Patient: Tatiana Brewster MR#: [id number] : 1975 Acct:[id number] Age/Sex: 45 / F ADM Date: 09/29/21 [...] Laron Villegas M.D.09/29/2021 4:16 PM Dictation Location: [place] [address] Transcribed By: [facility] 09/29/21 161 Dictated By: Laron Villegas II, MD 09/29/21 161 Signed By: 09/29/21 161 [facility] COVID Quick Testingon 2020 Result Negative Dtime Other Vital Signs Date Time Vital Sign Value Performing Clinician Facility 05-03-2023 09:05-0400 Body height 157.48 cm Priyanka Jones Other [facility] Other 05-03-2023 09:05-0400 Body mass index (BMI) [Ratio] 35.02 kg/m2 Priyanka Jones Other [facility] Other 05-03-2023 09:05-0400 Body temperature 97.5 [degF] Priyanka Jones Other [facility] Other 05-03-2023 09:05-0400 Body weight 86.86 kg Priyanka Jones Other [facility] Other 05-03-2023 09:05-0400 Diastolic blood pressure 76 mm[Hg] Priyanka Jones Other [facility] Other 05-03-2023 09:05-0400 Respiratory rate 18 /min Priyanka Jones Other [facility] Other 05-03-2023 09:05-0400 SaO2% (BldA) [Mass fraction] 100 % Priyanka Jones Other [facility] Other 05-03-2023 09:05-0400 Systolic blood pressure 117 mm[Hg] Priyanka Jones Other [facility] Other 11-17-2022 11:30-0500 Body height 157.48 cm Mona Morin Other [facility] Other 11-17-2022 11:30-0500 Body mass index (BMI) [Ratio] 35.3 kg/m2 Mona Yeungault Other [facility] Other 11-17-2022 11:30-0500 Body temperature 98.7 [degF] Mona Yeungault Other [facility] Other 11-17-2022 11:30-0500 Body weight 87.54 kg Mona Morin Other [facility] Other 11-17-2022 11:30-0500 Respiratory rate 18 /min Mona Morin Other [facility] Other 11-17-2022 11:30-0500 SaO2% (BldA) [Mass fraction] 98 % Mona Morin Other [facility] Other 09-28-2022 16:30-0500 Body height 157.48 cm Mona Yeungault Other [facility] Other 09-28-2022 16:30-0500 Body mass index (BMI) [Ratio] 35.3 kg/m2 Mona Yeungault Other [facility] Other 09-28-2022 16:30-0500 Body temperature 98 [degF] Mona Morin Other [facility] Other 09-28-2022 16:30-0500 Body weight 87.54 kg Mona Morin Other [facility] Other 09-28-2022 16:30-0500 Diastolic blood pressure 79 mm[Hg] Mona Morin Other Dtime Other 09-28-2022 16:30-0500 Respiratory rate 18 /min Mona Morin Other Dtime Other 09-28-2022 16:30-0500 SaO2% (BldA) [Mass fraction] 98 % Mona Morin Other Dtime Other 09-28-2022 16:30-0500 Systolic blood pressure 130 mm[Hg] Mona Morin Other Dtime Other 07-14-2022 15:00-0400 Body height 157.48 cm Mona Morin Other Dtime Other 07-14-2022 15:00-0400 Body mass index (BMI) [Ratio] 35.66 kg/m2 Mona Morin Other Dtime Other 07-14-2022 15:00-0400 Body weight 88.45 kg Mona Morin Other Dtime Other 07-14-2022 15:00-0400 Diastolic blood pressure 89 mm[Hg] Mona Yeungault Other Dtime Other 07-14-2022 15:00-0400 Respiratory rate 18 /min Mona Morin Other Dtime Other 07-14-2022 15:00-0400 SaO2% (BldA) [Mass fraction] 98 % Mona Yeungault Other Dtime Other 07-14-2022 15:00-0400 Systolic blood pressure 145 mm[Hg] Mona Yeungault Other Dtime Other 06-30-2022 12:00-0400 Body height 157.48 cm Mona Yeungault Other Dtime Other 06-30-2022 12:00-0400 Body mass index (BMI) [Ratio] 35.48 kg/m2 Mona Yeungault Other Dtime Other 06-30-2022 12:00-0400 Body temperature 97.7 [degF] Mona Yeungault Other Dtime Other 06-30-2022 12:00-0400 Body weight 88 kg Mona Yeungault Other Dtime Other 06-30-2022 12:00-0400 Diastolic blood pressure 87 mm[Hg] Mona Yeungault Other Dtime Other 06-30-2022 12:00-0400 Respiratory rate 18 /min Mona Yeungault Other Dtime Other 06-30-2022 12:00-0400 SaO2% (BldA) [Mass fraction] 97 % Mona Morin Other Dtime Other 06-30-2022 12:00-0400 Systolic blood pressure 136 mm[Hg] Mona Morin Other Dtime Other 02-03-2022 11:00-0400 Body height 157.48 cm Mona Morin Other Dtime Other 02-03-2022 11:00-0400 Body mass index (BMI) [Ratio] 35.84 kg/m2 Mona Morin Other Dtime Other 02-03-2022 11:00-0400 Body temperature 98.2 [degF] Mona Morin Other Dtime Other 02-03-2022 11:00-0400 Body weight 88.91 kg Mona Morin Other Dtime Other 02-03-2022 11:00-0400 Diastolic blood pressure 96 mm[Hg] Mona Morin Other Dtime Other 02-03-2022 11:00-0400 Respiratory rate 18 /min Mona Yeungault Other Dtime Other 02-03-2022 11:00-0400 SaO2% (BldA) [Mass fraction] 99 % Mona Yeungault Other Dtime Other 02-03-2022 11:00-0400 Systolic blood pressure 157 mm[Hg] Mona Yeungault Other Dtime Other 08-31-2021 10:00-0500 Body height 157.48 cm Kaylie Ginty Other Dtime Other 08-31-2021 10:00-0500 Body mass index (BMI) [Ratio] 35.66 kg/m2 Kayile Ginty Other Dtime Other 08-31-2021 10:00-0500 Body temperature 98.7 [degF] Kaylie Ginty Other Dtime Other 08-31-2021 10:00-0500 Body weight 88.45 kg Kaylie Ginty Other Dtime Other 08-31-2021 10:00-0500 Respiratory rate 18 /min Kaylie Ginty Other Dtime Other 08-31-2021 10:00-0500 SaO2% (BldA) [Mass fraction] 95 % Kaylie Ginty Other Dtime Other Encounters Encounter Date Encounter Type Care Provider Facility Start: 01-17-2024 End: 01-18-2024 ambulatory [facility] Start: 01-11-2024 End: 01-11-2024 ambulatory ELSI AICHHOLZ Not Available Start: 12-24-2023 Telephone encounter Saeid Gooden CMA [facility] Start: 11-04-2023 End: 11-04-2023 ambulatory TD BERUMEN [facility] Start: 10-26-2023 End: 10-26-2023 ambulatory ELSI AICHHOLZ Not Available Start: 09-13-2023 End: 09-13-2023 ambulatory ELSI AICHHOLZ Not Available Start: 05-03-2023 End: 05-03-2023 ambulatory Priyanka Jones Other Dtime Other Start: 05-03-2023 Office outpatient visit 15 minutes Priyanka Jones [facility] Start: 01-22-2023 End: 01-23-2023 ambulatory MONA MORIN Facility: Start: 11-23-2022 End: 11-23-2022 ambulatory Mona Morin Other Dtime Other Start: 11-23-2022 Telephone encounter Mona Palmercarolann barrett [facility] Start: 11-20-2022 End: 11-20-2022 ambulatory Mona Morin Other Dtime Other Start: 11-20-2022 Encounter by juan treviño Mona Mikel [facility] Start: 11-17-2022 End: 11-18-2022 ambulatory MONA MIKEL [facility]time Other Start: 11-17-2022 Office outpatient visit 15 minutes Mona Mikel [facility] Start: 10-06-2022 End: 10-06-2022 ambulatory Mona Morin Other Dtime Other Start: 10-06-2022 Telephone encounter Mona hyde [facility] Start: 09-29-2022 End: 09-29-2022 ambulatory PHYSICIAN NO [facility] Work Phone: Start: 09-29-2022 End: 09-29-2022 Departed Referred PHYSICIAN NO [facility] [place] Work Phone: Start: 09-28-2022 End: 09-28-2022 ambulatory Mona Morin Other Dtime Other Start: 09-28-2022 Office outpatient visit 15 minutes Mona Mikel [facility] Start: 09-14-2022 End: 09-14-2022 ambulatory Mona Mikel Other Dtime Other Start: 09-14-2022 Telephone encounter Mona Breaul t [facility] Start: 07-14-2022 End: 07-14-2022 ambulatory Mona Mikel Other Dtime Other Start: 07-14-2022 Office outpatient visit 15 minutes Mona Mikel [facility] Start: 06-30-2022 End: 06-30-2022 ambulatory Mona Mikel Other Dtime Other Start: 06-30-2022 Office outpatient visit 15 minutes Mona Mikel [facility] Start: 04-02-2022 End: 04-02-2022 ambulatory Mona Mikel Other Dtime Other Start: 04-02-2022 Telephone encounter Mona Breaul t [facility] Start: 03-31-2022 Telephone encounter Mona Breaul t [facility] Start: 03-31-2022 End: 04-01-2022 ambulatory MONA MIKEL Dtime Other Start: 02-03-2022 End: 02-03-2022 ambulatory Mona Mikel Other Dtime Other Start: 02-03-2022 Office outpatient visit 15 minutes Mona Mikel [facility] Start: 12-10-2021 End: 12-10-2021 ambulatory Mona Mikel Other Dtime Other Start: 12-10-2021 Telephone encounter Mona Breaul t [facility] Start: 11-10-2021 End: 11-10-2021 ambulatory Mona Mikel Other Dtime Other Start: 11-10-2021 Telephone encounter Mona hyde [facility] Start: 09-03-2021 End: 09-03-2021 ambulatory Kaylie Lozoyanty Other Dtime Other Start: 09-03-2021 Telephone encounter Kaylie Maynardy [facility] Start: 08-31-2021 End: 08-31-2021 ambulatory Kaylie Ginty Other Dtime Other Start: 08-31-2021 Office outpatient visit 15 minutes Kaylie Devoranty [facility] Procedures Date Procedure Procedure Detail Performing Clinician Start: 10-11-2017 Mammography Saeid hogue [employer] Start: 02-05-2017 Microscopic observat ion [Identifier] in Cervix by Cyto stain Saeid Gooden [facility] Plan of Treatment Date Care Activity Detail Author Start: 05-26-2024 Adult BMI Screening Adult BMI Screen ing [facility] Start: 05-26-2024 Tobacco Screening Tobacco Screening [facility] Start: 05-28-2023 Influenza vaccination Influenza Vacc ine [facility] Start: 09-29-2022 Aerobic Culture Aerobic Culture [facility] Start: 09-29-2022 Anaerobic Culture Anaerobic Culture [facility] Start: 09-29-2022 Microscopic observat ion [Identifier] in Unspecified specimen by Gram stain Gram Stain [facility] Start: 02-06-2020 Screening for malign ant neoplasm of cervix Pap Smear [facility] Start: 10-11-2018 Screening for malign ant neoplasm of breast Mammogram [facility] Start: 12-06-1995 DTaP,Tdap and Td Vaccines ( - Tdap) DTaP,Tdap and Td Vaccines ( - Tdap) [facility] Start: 1994 Adult BMI Follow Up Plan Adult BMI Follow Up Plan [facility] Start: 1988 Depression Screening Depression Scre ening [facility] Bacteria identified in Unspecified specimen by Aerobe culture [facility] Bacteria identified in Unspecified specimen by Anaerobe culture [facility] Immunizations Immunization Date Immunization Notes Care Provider Freedom fiona 10-01-2020 influenza virus vacc ine, unspecified formulation Saeid Gooden [facility] Payers Date Payer Category Payer Medicaid [id number] 2022 Medicaid [employer] [facility] [id number] 2022-Present [address] [place] [address] [id number] 2017 Unknown [id number] 1975 Unknown [id number] 93 1976 Unknown [id number] 93 1976 Unknown [id number] 93 1976 Unknown [id number] 286 1976 Unknown [id number] 259 1976 Unknown [id number] 259 1976 Unknown [id number] 259 1976 Unknown [id number] 96 1959 Unknown [id number] 1959 Unknown [id number] Blue Cross Blue [place] [address] [id number] Self-pay Self Pay [id number] Unknown [id number] Social History Date Type Detail Facility Unknown if ever smoked [facility] Other Start: 11-06-2020 End: 05-26-2023 Sex Assigned At [facility] [employer] Other Start: 1975 Sex Assigned At Female F [facility] Start: 08-23-2017 [facility] Start: 08-23-2017 Tobacco use and exposure Smokeless tobacco non-user [facility] Start: 05-26-2023 Alcohol intake 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 documented in this encounter [facility] 12-24-2023 Telephone encount er Note Attempted to contact patient to reschedule appointment on 05/31/[address] Verdugo is out of the office. No Vm set up to leave a message. T [facility] 05-03-2023 Evaluation note Encounter Date Diagnosis [...] fever. Patient/Parent verbalized understanding of treatment plan. [facility] Other 02-21-2023 Evaluation note* Encounter Date Diagnosis [...] weeks for the cough to go away [facility]time Other 01-02-2023 Evaluation note* Encounter Date Diagnosis [...] obtained for C&S. Will call with results. [facility]time Other 12-19-2022 Evaluation note* Encounter Date Diagnosis Assessment Notes Treatment Notes Treatment Clinical Notes Aug, Gastroesophageal ref lux disease, unspecified whether esophagitis present (ICD-10 - K21.9) Aug, PCOS (polycystic ovarian syndrome) (ICD-10 - E28.2) [facility] Other 10-18-2022 Evaluation note* Encounter Date Diagnosis Assessment Notes Treatment Notes Treatment Clinical Notes Jun, Fibromyalgia (ICD-10 - M79.7) Continue current treatment regimen. Printed off script to use as needed [facility] Other 10-04-2022 Evaluation note* Encounter Date Diagnosis Assessment Notes Treatment Notes Treatment Clinical Notes Jun, Primary hypertension (ICD-10 - I10) Jun, SJ (generalized anxiety disorder) (ICD-10 - F41.1) [facility] Other 07-07-2022 Evaluation note* Encounter Date Diagnosis Assessment Notes Treatment Notes Treatment Clinical Notes Mar, Right hip pain (ICD-10 - M25.551) [facility] Other 05-10-2022 Evaluation note* Encounter Date Diagnosis Assessment Notes Treatment Notes Treatment Clinical Notes January, Gastroesophageal ref lux disease, unspecified whether esophagitis present (ICD-10 - K21.9) Continue to take medication as directed. January, PCOS (polycystic ovarian syndrome) (ICD-10 - E28.2) Take medication as directed with food [facility] Other 03-16-2022 Evaluation note* Encounter Date Diagnosis Assessment Notes Treatment Notes Treatment Clinical Notes Nov, Sacral back pain (ICD-10 - M53.3) [facility] Other 02-14-2022 Evaluation note* Encounter Date Diagnosis Assessment Notes Treatment Notes Treatment Clinical Notes Oct, Gastroesophageal ref lux disease, unspecified whether esophagitis present (ICD-10 - K21.9) [facility] Other 02-14-2022 Evaluation note* Encounter Date Diagnosis Assessment Notes Treatment Notes Treatment Clinical Notes Oct, Sacral back pain (ICD-10 - M53.3) Dtime Other 2021 Evaluation note* Encounter Date Diagnosis [...] in writting by [facility] document. Dtime Other Evaluation noteNo InformationNort [employer] Other Evaluation noteNo assessment information available [facility] Work Phone: History general Narrative - Reported* Type Description Date Medical History asthma Medical History pcos Medical History Fibromyalgia Medical History Hypothyroidism - euthyroid Medical History chronic fatigue Surgical History gall bladder Surgical History vein removed in bilaterally Surgical History gastric sleeve Hospitalization History see above Hospitalization History CHILD X'S 5 Dtime Other InstructionsNot on filedocumented in this encounter [facility] for visit NarrativeDermatology Referral Update Dtime Other Summary Purpose Family History No Family [...] content) DATE CREATED AUTHOR 03/27/2022 [facility] DATE CREATED AUTHOR AUTHOR'S ORGANIZ ATION 01/29/2023 [facility] DATE CREATED AUTHOR AUTHOR'S ORGANIZ ATION 11/08/2023 [facility] DATE CREATED AUTHOR AUTHOR'S ORGANIZ ATION 01/12/2024 [facility] DATE CREATED AUTHOR AUTHOR'S ORGANIZ ATION 01/19/2024 [facility] Care Teams (unrecognized sec tion and content) Team Status: Inactive Member Role Status Dates PHYSICIAN NO FAMILY Primary Care Provider Active CHRISTIANO Jha Attending Provider Active Team Status: Active Member Role Status Dates PHYSICIAN NO FAMILY Primary Care Provider 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 [facility] Shortlist [facility]. provides no warranty or guarantee of the accuracy or completeness of information in this document.
== END 2024-01-31 09:01 | disposition home or self-care (01) ==
LOC: VC 09:00
PROVIDERS: PCP Nurse Practitioner; Visit Provider Radiology Diagnostic Radiology
DX: I83.813 Varicose veins of bilateral lower extremities with pain (principal)
CPT/HCPCS: 36466

== ENCOUNTER 2024-02-01 08:47 | Outpatient (OUT) | payer BC, MEDICAID, SELFPAY ==
[2024-02-01 09:02] LABS: Basophils Absolute Auto 0.1 10^3/uL (0.0-0.1); Basophils Percent Auto 0.8 % (0.2-2.0); Eosinophils Absolute Auto 0.1 10^3/uL (0.0-0.7); Eosinophils Percent Auto 1.8 % (0.9-7.0); Hematocrit 42.6 % (36.0-48.0); Hemoglobin 13.8 g/dL (12.0-16.0); Immature Granulocytes Abs Auto 0.02 10^3/uL (0.00-0.03); Immature Granulocytes Pct Auto 0.3 % (0.0-0.5); Lymphocytes Absolute Auto 1.4 10^3/uL (1.2-3.8); Lymphocytes Percent Auto 22.4 % (20.5-60.0); Mean Corpuscular HGB Conc 32.4 g/dL (29.9-35.2); Mean Corpuscular Volume 89.5 fL (81.0-99.0); Monocytes Absolute Auto 0.5 10^3/uL (0.3-0.8); Neutrophils Percent Auto 66.7 % (43.0-75.0); Platelet Count 295 10^3/uL (150-450); Red Blood Count 4.76 10^6/uL (4.20-5.40); Red Cell Distribution Width 13.6 % (11.0-15.0)
--- OUTSIDE RECORDS SUMMARY | 2024-02-01 09:06 | XMS_ITS | CCD ---
Author Organization [facility] Care Team Providers Care Vegetable Ii Farmworker Name Role Phone Devorachrissie Kaylie Unavailable Mona Morin Unavailable NO FAMILY, PHYSICIAN Primary Care Provider Unava ilCHRISTIANO Lazaro Attending Provider MONA MORIN Primary Care Unavailable MISC, DR ELIAS Attending Unavailable MISC, DR ELIAS Admitting Unavailable AICHHOLShannan, DOOR REPAIRMAN ELSI Consulting Unavailable MONA MORIN Consulting Unavailable MIKEL, MONA Primary Care Unavailable MIKEL, MONA Admitting Unavailable MIKEL, MONA Attending Unavailable MIKEL, MONA Primary Care Unavailable MIKEL, MONA Admitting Unavailable MIKEL, MONA Attending Unavailable MIKEL MONA Consulting Unavailable Priyanka Jones Unavailable TD BERUMEN Attending Unavailable MIKEL MONA Referring Unavailable MIKEL, MONA Primary Care Unavailable Mikel ASSOCIATE PROFESSOR OF THEOLOGY-WELDER, Mona Primary Care Provide r ELSI SUAREZ Attending Unavailable ELSI SUAREZ Attending Unavailable ELSI SUAREZ Attending Unavailable Elyssa MCBRIDE, [place] Mosqueda Attending Unavailable Allergies Allergy Classification Reported Allergen(s) Allergy Type Date of Onset Reaction(s) Facility (5 sources) Cephalexin Drug Allergy rash [facility] Other (12 sources) Cephalexin Drug Allergy rash [facility] Other (1 source) Sulfamethoxazole / Trimethoprim Drug Allergy 3 [facility] Repository Medications Current Medications Medication Drug Class(es) Dates Sig (Normalized) Sig (Original) [id number] 200 actuat albuterol 0.09 mg/actuat metered dose [...] oral solution (2 sources) alpha-Adrenergic Agonist, Uncompetitive T-fjjsiu-B-aspartate Receptor Antagonist, Sigma-1 Agonist Start: 08-31-2021 take [...] pyogenes Org specific cx Ql (Throat) Negative [facility] Other Quick Strep [facility] Other INSULINon 01-26-2023 Insulin 21.3 uIU/mL Normal 2.6-24.9 [facility] Comment on above: Performed By: #### I NSULIN #### [facility] [address] [place] [address] Dr. Yvan Manzano CORTISOLon 01-23-2023 Cortisol 11.2 ug/dL Normal 6.2-19.4 [facility] Comment on above: Result Comment: [place] Note: The reference interval and flagging for this test is for an AM collection. If this is a PM collection please use: Cortisol PM: 2.3-11.9 [facility] also offers: 030869: Cortisol- AM 826172: Cortisol- PM Performed By: #### C BC #### [facility] [address] [place] [address] Dr. Yvan Manzano CBC AUTO DIFFon 01-22-2023 BASO # 0.1 103/ul Normal 0.0-0.1 [facility] Comment on above: Performed By: #### C BC #### [facility] [address] [place] [address] Dr. Yvan Manzano Basophils/100 WBC (Bld) 0.9 % Normal 0.2-2.0 [facility] Comment on above: Performed By: #### C BC #### [facility] [address] [place] [address] Dr. Yvan Manzano EO # 0.3 103/ul Normal 0.0-0.7 [facility] Comment on above: Performed By: #### C BC #### [facility] [address] [place] [address] Dr. Yvan Manzano Eosinophils/100 WBC (Bld) 5.7 % Normal 0.9-7.0 [facility] Comment on above: Performed By: #### C BC #### [facility] [address] [place] [address] Dr. Yvan Manzano Erythrocyte distribution width (RBC) [Ratio] 14.6 % Normal 11.0-15.0 [facility] Comment on above: Performed By: #### C BC #### [facility] [address] [place] [address] Dr. Yvan Manzano Hematocrit (Bld) [Volume fraction] 36.8 % Normal 36.0-48.0 [facility] Comment on above: Performed By: #### C BC #### [facility] [address] [place] [address] Dr. Yvan Manzano Hemoglobin (Bld) [Mass/Vol] 11.4 g/dL Critically low 12.0-16.0 [facility] Comment on above: Performed By: #### C BC #### [facility] [address] [place] [address] Dr. Yvan Manzano IG # 0.02 10e3/ul Normal 0.00-0.03 [facility] Comment on above: Performed By: #### C BC #### [facility] [address] [place] [address] Dr. Yvan Manzano IG % 0.3 % Normal 0.0-0.5 [facility] Comment on above: Performed By: #### C BC #### [facility] [address] [place] [address] Dr. Yvan Manzano LYMPH # 1.5 103/ul Normal 1.2-3.8 [facility] Comment on above: Performed By: #### C BC #### [facility] [address] [place] [address] Dr. Yvan Manzano Lymphocytes/100 WBC (Bld) 25.3 % Normal 20.5-60.0 [facility] Comment on above: Performed By: #### C BC #### [facility] [address] [place] [address] Dr. Yvan Manzano MANUAL DIFF REQ NO Normal [facility] Comment on above: Performed By: #### C BC #### [facility] [address] [place] [address] Dr. Yvan Manzano MCH (RBC) [Entitic mass] 25.2 pg Critically low 26.7-34.0 [facility] Comment on above: Performed By: #### C BC #### [facility] [address] [place] [address] Dr. Yvan Manzano MCHC (RBC) [Mass/Vol] 31.0 g/dL Normal 29.9-35.2 [facility] Comment on above: Performed By: #### C BC #### [facility] [address] [address] [address] Yvan Manzano MCV (RBC) [Entitic vol] 81.4 fL Normal 81.0-99.0 [facility] Comment on above: Performed By: #### C BC #### [facility] [address] [address] [address] Yvan Manzano MONO # 0.4 103/ul Normal 0.3-0.8 [facility] Comment on above: Performed By: #### C BC #### [facility] [address] [place] [address] Dr. Yvan Manzano Monocytes/100 WBC (Bld) 7.7 % Normal 1.7-12.0 [facility] Comment on above: Performed By: #### C BC #### [facility] [address] [place] [address] Dr. Yvan Manzano NEUT # 3.5 103/ul Normal 1.4-6.5 [facility] Comment on above: Performed By: #### C BC #### [facility] [address] [place] [address] Dr. Yvan Manzano Neutrophils/100 WBC (Bld) 60.1 % Normal 43.0-75.0 [facility] Comment on above: Performed By: #### C BC #### [facility] [address] [place] [address] Dr. Yvan Manzano Platelet mean volume (Bld) [Entitic vol] 8.8 fL Critically low 9.5-13.5 [facility] Comment on above: Performed By: #### C BC #### [facility] [address] [place] [address] Dr. Yvan Manzano PLT 347 103/ul Normal 150-450 [facility] Comment on above: Performed By: #### C BC #### [facility] [address] [place] [address] Dr. Yvan Manzano RBC 4.52 106/ul Normal 4.20-5.40 [facility] Comment on above: Performed By: #### C BC #### [facility] [address] [place] [address] Dr. Yvan Manzano WBC 5.7 103/ul Normal 4.0-11.0 [facility] Comment on above: Performed By: #### C BC #### [facility] [address] [place] [address] Dr. Yvan Manzano FREE T4on 01-22-2023 Free T4 [Mass/Vol] 0.84 ng/dL Normal 0.76-1.46 [facility] Comment on above: Performed By: #### F T4 #### [facility] [address] [place] [address] Dr. Yvan Manzano LIPID PROFILEon 01-22-2023 CHOL-HDL RATIO NORM SEE BELOW Normal [facility] Comment on above: Result Comment: 3.3 - 4.4 LOW RISK 4.4 - 7.1 AVERAGE RISK 7.1 - 11.0 MODERATE RISK >11.0 HIGH RISK Performed By: #### T SH, LIPID #### [facility] [address] [place] [address] Dr. Yvan Manzano Cholesterol [Mass/Vol] 264 mg/dL Critically high <=200 [facility] Comment on above: Performed By: #### T SH, LIPID #### [facility] [address] [place] [address] Dr. Yvan Manzano Cholesterol in HDL [Mass/Vol] 52 mg/dL Normal 40-60 [facility] Comment on above: Performed By: #### T SH, LIPID #### [facility] [address] [place] [address] Dr. Yvan Manzano Cholesterol in LDL [Mass/Vol] 173.6 mg/dL Normal [facility] Comment on above: Performed By: #### T SH, LIPID #### [facility] [address] [place] [address] Dr. Yvan Manzano Cholesterol.total/Ch olesterol in HDL [Mass ratio] 5.1 {ratio} Normal [facility] Comment on above: Performed By: #### T SH, LIPID #### [facility] [address] [place] [address] Dr. Yvan Manzano HDL NORMAL > or = 60 mg/dl - LOW CARDIOVASCULAR RISK <40 mg/dl - HIGH CARDIOVASCULAR RISK Normal [facility] Comment on above: Performed By: #### T SH, LIPID #### [facility] [address] [address] [address] Yvan Manzano LDL CALC NORMAL SEE BELOW Normal [facility] Comment on above: Result Comment: <100 mg/dl OPTIMAL 100 - 129 mg/dl NEAR OR ABOVE OPTIMAL 130 - 159 mg/dl BORDERLINE HIGH 160 - 189 mg/dl HIGH >190 mg/dl VERY HIGH Performed By: #### T SH, LIPID #### [facility] [address] [address] [address] Yvan Manzano Triglyceride [Mass/Vol] 192 mg/dL Critically high <=150 [facility] Comment on above: Performed By: #### T SH, LIPID #### [facility] [address] [place] [address] Dr. Yvan Manzano VLDL CALC 38.4 mg/dL Normal [facility] Comment on above: Performed By: #### T SH, LIPID #### [facility] [address] [place] [address] Dr. Yvan Manzano TSHon 01-22-2023 TSH 5.749 uIU/mL Critically high 0.358-3.740 [facility] Comment on above: Performed By: #### T SH, LIPID #### [facility] [address] [place] [address] Dr. Yvan Manzano GLYCOHEMOGLOBIN A1Con 2022 ADA RECOMMENDATION SEE BELOW Normal [facility] Comment on above: Result Comment: ADA RECOMMENDED LIMIT 4.0 - 6.0 ADA THERAPEUTIC TARGET < 7.0 ACTION SUGGESTED > 7.0 Performed By: #### A 1C #### [facility] [address] [address] [address] Yvan Manzano Glucose [Mass/Vol] 137 mg/dL Normal [facility] Comment on above: Performed By: #### A 1C #### [facility] [address] [place] [address] Dr. Yvan Manzano HbA1c (Bld) [Mass fraction] 6.4 % Critically high 4.5-6.2 [facility] Comment on above: Performed By: #### A 1C #### [facility] [address] [place] [address] Dr. Yvan Manzano PROF 14(COMP METB)on 023 Albumin [Mass/Vol] 3.4 g/dL Normal 3.4-5.0 [facility] Comment on above: Performed By: #### C MP #### [facility] [address] [place] [address] Dr. Yvan Manzano Albumin/Globulin [Mass ratio] 0.9 {ratio} Normal [facility] Comment on above: Performed By: #### C MP #### [facility] [address] [place] [address] Dr. Yvan Manzano ALP [Catalytic activity/Vol] 74 U/L Normal 46-116 [facility] Comment on above: Performed By: #### C MP #### [facility] [address] [place] [address] Dr. Yvan Manzano ALT [Catalytic activity/Vol] 25 U/L Normal 14-59 [facility] Comment on above: Performed By: #### C MP #### [facility] [address] [place] [address] Dr. Yvan Manzano Anion gap [Moles/Vol] 9.4 mmol/L Normal [facility] Comment on above: Performed By: #### C MP #### [facility] [address] [place] [address] Dr. Yvan Manzano AST [Catalytic activity/Vol] 17 U/L Normal 15-37 [facility] Comment on above: Performed By: #### C MP #### [facility] [address] [place] [address] Dr. Yvan Manzano Bilirubin [Mass/Vol] 0.1 mg/dL Critically low 0.2-1.0 [facility] Comment on above: Performed By: #### C MP #### [facility] [address] [place] [address] Dr. Yvan Manzano Calcium [Mass/Vol] 9.2 mg/dL Normal 8.5-10.1 [facility] Comment on above: Performed By: #### C MP #### [facility] [address] [address] [address] Yvan Manzano Chloride [Moles/Vol] 101 mmol/L Normal 98-107 [facility] Comment on above: Performed By: #### C MP #### [facility] [address] [address] [address] Yvan Manzano CO2 [Moles/Vol] 30.4 mmol/L Normal 21.0-32.0 [facility] Comment on above: Performed By: #### C MP #### [facility] [address] [address] [address] Yvan Manzano Creatinine [Mass/Vol] 0.71 mg/dL Normal 0.55-1.02 [facility] Comment on above: Performed By: #### C MP #### [facility] [address] [place] [address] Dr. Yvan Manzano EGFR-AF MONGOLIAN >60 Normal >=60 [facility] Comment on above: Performed By: #### C MP #### [facility] [address] [address] [address] Yvan Manzano EGFR-NON AF MONGOLIAN >60 Normal >=60 [facility] Comment on above: Performed By: #### C MP #### [facility] [address] [address] [address] Yvan Manzano Globulin (S) [Mass/Vol] 4.0 g/dL Normal [facility] Comment on above: Performed By: #### C MP #### [facility] [address] [address] [address] Yvan Manzano Glucose [Mass/Vol] 138 mg/dL Critically high 74-106 T [facility] Comment on above: Performed By: #### C MP #### [facility] [address] [address] [address] Yvan aMnzano Potassium [Moles/Vol] 3.8 mmol/L Normal 3.5-5.1 [facility] Comment on above: Performed By: #### C MP #### [facility] [address] [address] [address] Yvan Manzano Protein [Mass/Vol] 7.4 g/dL Normal 6.4-8.2 [facility] Comment on above: Performed By: #### C MP #### [facility] [address] [address] [address] Yvan Manzano Sodium [Moles/Vol] 137 mmol/L Normal 136-145 [facility] Comment on above: Performed By: #### C MP #### [facility] [address] [place] [address] Dr. Yvan Manzano Urea nitrogen [Mass/Vol] 13.0 mg/dL Normal 7.0-18.0 [facility] Comment on above: Performed By: #### C MP #### [facility] [address] [place] [address] Dr. Yvan Manzano Urea nitrogen/Creatinine [Mass ratio] 18.3 mg/mg Normal [facility] Comment on above: Performed By: #### C MP #### [facility] [address] [place] [address] Dr. Yvan Manzano LIPID PROFILEon 03-31-2022 CHOL-HDL RATIO NORM SEE BELOW Normal [facility] Comment on above: Result Comment: 3.3 - 4.4 LOW RISK 4.4 - 7.1 AVERAGE RISK 7.1 - 11.0 MODERATE RISK >11.0 HIGH RISK Performed By: #### C MP, LIPID #### [facility] [address] [place] [address] Dr. Yvan Manzano Cholesterol [Mass/Vol] 229 mg/dL Critically high <=200 [facility] Comment on above: Performed By: #### C MP, LIPID #### [facility] [address] [address] [address] Yvan Manzano Cholesterol in HDL [Mass/Vol] 51 mg/dL Normal 40-60 [facility] Comment on above: Performed By: #### C MP, LIPID #### [facility] [address] [address] [address] Yvan Manzano Cholesterol in LDL [Mass/Vol] 150.4 mg/dL Normal [facility] Comment on above: Performed By: #### C MP, LIPID #### [facility] [address] [address] [address] Yvan Manzano Cholesterol.total/Ch olesterol in HDL [Mass ratio] 4.5 {ratio} Normal [facility] Comment on above: Performed By: #### C MP, LIPID #### [facility] [address] [address] [address] Yvan Manzano HDL NORMAL > or = 60 mg/dl - LOW CARDIOVASCULAR RISK <40 mg/dl - HIGH CARDIOVASCULAR RISK Normal [facility] Comment on above: Performed By: #### C MP, LIPID #### [facility] [address] [address] [address] Yvan Manzano LDL CALC NORMAL SEE BELOW Normal [facility] Comment on above: Result Comment: <100 mg/dl OPTIMAL 100 - 129 mg/dl NEAR OR ABOVE OPTIMAL 130 - 159 mg/dl BORDERLINE HIGH 160 - 189 mg/dl HIGH >190 mg/dl VERY HIGH Performed By: #### C MP, LIPID #### [facility] [address] [place] [address] Dr. Yvan Manzano Triglyceride [Mass/Vol] 138 mg/dL Normal <=150 [facility] Comment on above: Performed By: #### C MP, LIPID #### [facility] [address] [place] [address] Dr. Yvan Mnazano VLDL CALC 27.6 mg/dL Normal [facility] Comment on above: Performed By: #### C MP, LIPID #### [facility] [address] [address] [address] Yvan Manzano MICROALB CREAT RATIO RANDOMo n 03-31-2022 mALB 1.4 mg/L Normal <=30.0 [facility] Comment on above: Performed By: #### M CRR #### [facility] [address] [place] [address] Dr. Yvan Manzano MALB CR RATIO 6.0 mg/g Normal 0.0-29.9 [facility] Comment on above: Performed By: #### M CRR #### [facility] [address] [place] [address] Dr. Yvan Manzano MALB CR RATIO RANGE SEE BELOW Normal [facility] Comment on above: Result Comment: NO M ICROALBUMINURIA 0-29 MG/G CLINICAL MICROALBUMINURIA 30-300 MG/G MACROALBUMINURIA >300 MG/G Performed By: #### M CRR #### [facility] [address] [address] [address] Yvan Manzano URINE CREAT 232.88 mg/dL Normal 20.00-300.00 [facility] Comment on above: Performed By: #### M CRR #### [facility] [address] [address] [address] Yvan Manzano PROF 14(COMP METB)on 022 Albumin [Mass/Vol] 3.6 g/dL Normal 3.4-5.0 [facility] Comment on above: Performed By: #### C MP, LIPID #### [facility] [address] [place] [address] Dr. Yvan Manzano Albumin/Globulin [Mass ratio] 0.9 {ratio} Normal [facility] Comment on above: Performed By: #### C MP, LIPID #### [facility] [address] [place] [address] Dr. Yvan Manzano ALP [Catalytic activity/Vol] 63 U/L Normal 46-116 [facility] Comment on above: Performed By: #### C MP, LIPID #### [facility] [address] [place] [address] Dr. Yvan Manzano ALT [Catalytic activity/Vol] 33 U/L Normal 14-59 [facility] Comment on above: Performed By: #### C MP, LIPID #### [facility] [address] [place] [address] Dr. Yvan Manzano Anion gap [Moles/Vol] 11.7 mmol/L Normal [facility] Comment on above: Performed By: #### C MP, LIPID #### [facility] [address] [place] [address] Dr. Yvan Manzano AST [Catalytic activity/Vol] 23 U/L Normal 15-37 [facility] Comment on above: Performed By: #### C MP, LIPID #### [facility] [address] [address] [address] Yvan Manzano Bilirubin [Mass/Vol] 0.2 mg/dL Normal 0.2-1.0 [facility] Comment on above: Performed By: #### C MP, LIPID #### [facility] [address] [address] [address] Yvan Manzano Calcium [Mass/Vol] 9.5 mg/dL Normal 8.5-10.1 [facility] Comment on above: Performed By: #### C MP, LIPID #### [facility] [address] [address] [address] Yvan Manzano Chloride [Moles/Vol] 102 mmol/L Normal 98-107 [facility] Comment on above: Performed By: #### C MP, LIPID #### [facility] [address] [place] [address] Dr. Yvan Manzano CO2 [Moles/Vol] 28.0 mmol/L Normal 21.0-32.0 [facility] Comment on above: Performed By: #### C MP, LIPID #### [facility] [address] [place] [address] Dr. Yvan Manzano Creatinine [Mass/Vol] 0.71 mg/dL Normal 0.55-1.02 [facility] Comment on above: Performed By: #### C MP, LIPID #### [facility] [address] [place] [address] Dr. Yvan Manzano EGFR-AF MONGOLIAN >60 Normal >=60 [facility] Comment on above: Performed By: #### C MP, LIPID #### [facility] [address] [place] [address] Dr. Yvan Manzano EGFR-NON AF MONGOLIAN >60 Normal >=60 [facility] Comment on above: Performed By: #### C MP, LIPID #### [facility] [address] [place] [address] Dr. Yvan Manzano Globulin (S) [Mass/Vol] 4.0 g/dL Normal [facility] Comment on above: Performed By: #### C MP, LIPID #### [facility] [address] [address] [address] Yvan Manzano Glucose [Mass/Vol] 87 mg/dL Normal 74-106 [facility] Comment on above: Performed By: #### C MP, LIPID #### [facility] [address] [address] [address] Yvan Manzano Potassium [Moles/Vol] 3.7 mmol/L Normal 3.5-5.1 [facility] Comment on above: Performed By: #### C MP, LIPID #### [facility] [address] [address] [address] Yvan Manzano Protein [Mass/Vol] 7.6 g/dL Normal 6.4-8.2 [facility] Comment on above: Performed By: #### C MP, LIPID #### [facility] [address] [address] [address] Yvan Manzano Sodium [Moles/Vol] 138 mmol/L Normal 136-145 [facility] Comment on above: Performed By: #### C MP, LIPID #### [facility] [address] [address] [address] Yvan Manzano Urea nitrogen [Mass/Vol] 14.0 mg/dL Normal 7.0-18.0 [facility] Comment on above: Performed By: #### C MP, LIPID #### [facility] [address] [address] [address] Yvan Manzano Urea nitrogen/Creatinine [Mass ratio] 19.7 mg/mg Normal [facility] Comment on above: Performed By: #### C MP, LIPID #### [facility] [address] [address] [address] Yvan Manzano XR hip RT min 2V(w/wo pelvis )*on 03-26-2022 XR hip RT min 2V(w/wo pelvis)* [facility] [place] [address] XRay Report Signed Patient: Tatiana Brewster MR#: [id number] : 1975 Acct:[id number] Age/Sex: 46 / F ADM Date: 03/26/22 [...] M.D.03/26/2022 3:38 PM Dictation Location: [place] [address] Transcribed By: [facility] 03/26/22 1538 Dictated By: Michael Harper DO 03/26/22 1534 Signed By: 03/26/[address] [facility] XR sacrum coccyx min 2Von XR sacrum coccyx min 2V [facility] [place] [address] XRay Report Signed Patient: Tatiana Brewster MR#: [id number] : 1975 Acct:[id number] Age/Sex: 45 / F ADM Date: 09/29/21 [...] Laron Villegas M.D.09/29/2021 4:16 PM Dictation Location: [place] [address] Transcribed By: [facility] 09/29/21 161 Dictated By: Laron Villegas II, MD 09/29/21 161 Signed By: 09/29/[address] [facility] COVID Quick Testingon 2020 Result Negative [facility] Other Vital Signs Date Time Vital Sign Value Performing Clinician Facility 05-03-2023 09:05-0400 Body height 157.48 cm Priyanka Jones Other [facility] Other 05-03-2023 09:05-0400 Body mass index (BMI) [Ratio] 35.02 kg/m2 Priyanka Jones Other [facility] Other 05-03-2023 09:05-0400 Body temperature 97.5 [degF] Priyanka Jones Other [facility] Other 05-03-2023 09:05-0400 Body weight 86.86 kg Priyanka Jones Other [employer] [employer] Other 05-03-2023 09:05-0400 Diastolic blood pressure 76 mm[Hg] Priyanka Jones Other [facility] [employer] Other 05-03-2023 09:05-0400 Respiratory rate 18 /min Priyanka Jones Other [facility] Other 05-03-2023 09:05-0400 SaO2% (BldA) [Mass fraction] 100 % Priyanka Jones Other [facility] [employer] Other 05-03-2023 09:05-0400 Systolic blood pressure 117 mm[Hg] Priyanka Jones Other [facility] [employer] Other 11-17-2022 11:30-0500 Body height 157.48 cm Mona Morin Other [facility] [employer] Other 11-17-2022 11:30-0500 Body mass index (BMI) [Ratio] 35.3 kg/m2 Mona Yeungault Other [facility] [employer] Other 11-17-2022 11:30-0500 Body temperature 98.7 [degF] Mona Yeungault Other [facility] [employer] Other 11-17-2022 11:30-0500 Body weight 87.54 kg Mona Morin Other [facility] [employer] Other 11-17-2022 11:30-0500 Respiratory rate 18 /min Mona Morin Other [facility] [employer] Other 11-17-2022 11:30-0500 SaO2% (BldA) [Mass fraction] 98 % Mona Morin Other [facility] [employer] Other 09-28-2022 16:30-0500 Body height 157.48 cm Mona Yeungault Other [facility] [employer] Other 09-28-2022 16:30-0500 Body mass index (BMI) [Ratio] 35.3 kg/m2 Mona Yeungault Other [facility] [employer] Other 09-28-2022 16:30-0500 Body temperature 98 [degF] Mona Morin Other [facility] [employer] Other 09-28-2022 16:30-0500 Body weight 87.54 kg Mona Morin Other [facility] [employer] Other 09-28-2022 16:30-0500 Diastolic blood pressure 79 mm[Hg] Mona Morin Other [facility] [employer] Other 09-28-2022 16:30-0500 Respiratory rate 18 /min Mona Morin Other [facility] [employer] Other 09-28-2022 16:30-0500 SaO2% (BldA) [Mass fraction] 98 % Mona Morin Other [facility] [employer] Other 09-28-2022 16:30-0500 Systolic blood pressure 130 mm[Hg] Mona Morin Other [facility] [employer] Other 07-14-2022 15:00-0400 Body height 157.48 cm Mona Morin Other [facility] [employer] Other 07-14-2022 15:00-0400 Body mass index (BMI) [Ratio] 35.66 kg/m2 Mona Morin Other [facility] [employer] Other 07-14-2022 15:00-0400 Body weight 88.45 kg Mona Morin Other [facility] [employer] Other 07-14-2022 15:00-0400 Diastolic blood pressure 89 mm[Hg] Mona Yeungault Other [facility] [employer] Other 07-14-2022 15:00-0400 Respiratory rate 18 /min Mona Morin Other [facility] [employer] Other 07-14-2022 15:00-0400 SaO2% (BldA) [Mass fraction] 98 % Mona Yeungault Other [facility] [employer] Other 07-14-2022 15:00-0400 Systolic blood pressure 145 mm[Hg] Mona Yeungault Other [facility] Other 06-30-2022 12:00-0400 Body height 157.48 cm Mona Yeungault Other [facility] [employer] Other 06-30-2022 12:00-0400 Body mass index (BMI) [Ratio] 35.48 kg/m2 Mona Yeungault Other [facility] Other 06-30-2022 12:00-0400 Body temperature 97.7 [degF] Mona Yeungault Other [facility] Other 06-30-2022 12:00-0400 Body weight 88 kg Mona Yeungault Other [facility] [employer] Other 06-30-2022 12:00-0400 Diastolic blood pressure 87 mm[Hg] Mona Yeungault Other [facility] Other 06-30-2022 12:00-0400 Respiratory rate 18 /min Mona Yeungault Other [facility] Other 06-30-2022 12:00-0400 SaO2% (BldA) [Mass fraction] 97 % Mona Morin Other [facility] [employer] Other 06-30-2022 12:00-0400 Systolic blood pressure 136 mm[Hg] Mona Morin Other [facility] [employer] Other 02-03-2022 11:00-0400 Body height 157.48 cm Mona Morin Other [facility] Other 02-03-2022 11:00-0400 Body mass index (BMI) [Ratio] 35.84 kg/m2 Mona Morin Other [facility] [employer] Other 02-03-2022 11:00-0400 Body temperature 98.2 [degF] Mona Morin Other [facility] Other 02-03-2022 11:00-0400 Body weight 88.91 kg Mona Morin Other [facility] [employer] Other 02-03-2022 11:00-0400 Diastolic blood pressure 96 mm[Hg] Mona Morin Other [facility] [employer] Other 02-03-2022 11:00-0400 Respiratory rate 18 /min Mona Yeungault Other [facility] [employer] Other 02-03-2022 11:00-0400 SaO2% (BldA) [Mass fraction] 99 % Mona Yeungault Other [facility] Other 02-03-2022 11:00-0400 Systolic blood pressure 157 mm[Hg] Mona Yeungault Other [facility] Other 08-31-2021 10:00-0500 Body height 157.48 cm Kaylie Ginty Other [facility] Other 08-31-2021 10:00-0500 Body mass index (BMI) [Ratio] 35.66 kg/m2 Kaylie Ginty Other [facility] Other 08-31-2021 10:00-0500 Body temperature 98.7 [degF] Kaylie Ginty Other [facility] Other 08-31-2021 10:00-0500 Body weight 88.45 kg Kaylie Ginty Other [facility] Other 08-31-2021 10:00-0500 Respiratory rate 18 /min Kaylie Ginty Other [facility] Other 08-31-2021 10:00-0500 SaO2% (BldA) [Mass fraction] 95 % Kaylie Ginty Other [facility] [employer] Other Encounters Encounter Date Encounter Type Care Provider Facility Start: 01-17-2024 End: 01-18-2024 [facility] Start[facility] 01-11-2024 End: 01-11-2024 ambulatory ELSI AICHHOLZ Not Available Start: 12-24-2023 Telephone encounter Saeid Gooden CMA [facility] Start: 11-04-2023 End: 11-04-2023 ambulatory TD BERUMEN [facility] Start: 10-26-2023 End: 10-26-2023 ambulatory ELSI AICHHOLZ Not Available Start: 09-13-2023 End: 09-13-2023 ambulatory ELSI AICHHOLZ Not Available Start: 05-03-2023 End: 05-03-2023 ambulatory Priyanka Jones Other [facility] [employer] Other Start: 05-03-2023 Office outpatient visit 15 minutes Priyanka Jones [facility] Start: 01-22-2023 End: 01-23-2023 ambulatory MONA MORIN Facility: Start: 11-23-2022 End: 11-23-2022 ambulatory Mona Morin Other [facility] [employer] Other Start: 11-23-2022 Telephone encounter Mona Palmercarolann barrett [facility] Start: 11-20-2022 End: 11-20-2022 ambulatory Mona Morin Other [facility] Other Start: 11-20-2022 Encounter by juan treviño Mona Mikel [facility] Start: 11-17-2022 End: 11-18-2022 ambulatory MONA MIKEL [facility] Other Start: 11-17-2022 Office outpatient visit 15 minutes Mona Mikel [facility] Start: 10-06-2022 End: 10-06-2022 ambulatory Mona Morin Other [facility] Other Start: 10-06-2022 Telephone encounter Mona hyde [facility] Start: 09-29-2022 End: 09-29-2022 ambulatory PHYSICIAN NO [facility] Work Phone: Start: 09-29-2022 End: 09-29-2022 Departed Referred PHYSICIAN NO [facility] [place] Work Phone: Start: 09-28-2022 End: 09-28-2022 ambulatory Mona Morin Other [facility] [employer] Other Start: 09-28-2022 Office outpatient visit 15 minutes Mona Mikel [facility] Start: 09-14-2022 End: 09-14-2022 ambulatory Mona Mikel Other [facility] Other Start: 09-14-2022 Telephone encounter Mona Breaul t [facility] Start: 07-14-2022 End: 07-14-2022 ambulatory Mona Mikel Other [facility] Other Start: 07-14-2022 Office outpatient visit 15 minutes Mona Mikel [facility] Start: 06-30-2022 End: 06-30-2022 ambulatory Mona Mikel Other [facility] Other Start: 06-30-2022 Office outpatient visit 15 minutes Mona Mikel [facility] Start: 04-02-2022 End: 04-02-2022 ambulatory Mona Mikel Other [facility] Other Start: 04-02-2022 Telephone encounter Mona Breaul t [facility] Start: 03-31-2022 Telephone encounter Mona Breaul t [facility] Start: 03-31-2022 End: 04-01-2022 ambulatory MONA MIKEL [facility] Other Start: 02-03-2022 End: 02-03-2022 ambulatory Mona Mikel Other [facility] [employer] Other Start: 02-03-2022 Office outpatient visit 15 minutes Mona Mikel [facility] Start: 12-10-2021 End: 12-10-2021 ambulatory Mona Mikel Other [facility] Other Start: 12-10-2021 Telephone encounter Mona Breaul t [facility] Start: 11-10-2021 End: 11-10-2021 ambulatory Mona Mikel Other [facility] Other Start: 11-10-2021 Telephone encounter Mona hyde [facility] Start: 09-03-2021 End: 09-03-2021 ambulatory Kaylie Lozoyanty Other [facility] Other Start: 09-03-2021 Telephone encounter Kaylie Maynardy [facility] Start: 08-31-2021 End: 08-31-2021 ambulatory Kaylie Ginty Other [facility] Other Start: 08-31-2021 Office outpatient visit 15 minutes Kaylie Devoranty [facility] Procedures Date Procedure Procedure Detail Performing Clinician Start: 10-11-2017 Mammography Saeid hogue [employer] Start: 02-05-2017 Microscopic observat ion [Identifier] in Cervix by Cyto stain Saeid Gooden [facility] Plan of Treatment Date Care Activity Detail Author Start: 05-26-2024 Adult BMI Screening Adult BMI Screen ing [facility] Start: 05-26-2024 Tobacco Screening Tobacco Screening [facility] Start: 05-28-2023 Influenza vaccination Influenza Vacc ine [facility] Start: 09-29-2022 Aerobic Culture Aerobic Culture [facility] Start: 09-29-2022 Anaerobic Culture Anaerobic Culture [facility] Start: 09-29-2022 Microscopic observat ion [Identifier] in Unspecified specimen by Gram stain Gram Stain [facility] Start: 02-06-2020 Screening for malign ant neoplasm of cervix Pap Smear [facility] Start: 10-11-2018 Screening for malign ant neoplasm of breast Mammogram [facility] Start: 12-06-1995 DTaP,Tdap and Td Vaccines ( - Tdap) DTaP,Tdap and Td Vaccines ( - Tdap) [facility] Start: 1994 Adult BMI Follow Up Plan Adult BMI Follow Up Plan [facility] Start: 1988 Depression Screening Depression Scre ening [facility] Bacteria identified in Unspecified specimen by Aerobe culture [facility] Bacteria identified in Unspecified specimen by Anaerobe culture [facility] Immunizations Immunization Date Immunization Notes Care Provider Freedom fiona 10-01-2020 influenza virus vacc ine, unspecified formulation Saeid Gooden [facility] Payers Date Payer Category Payer Medicaid [id number] 2022 Medicaid [employer] [facility] MEDICAID [id number] 2022-Present [address] [place] [address] [id number] 2017 Unknown [id number] 1976 Unknown [id number] 93 1976 Unknown [id number] 93 1976 Unknown [id number] 93 1976 Unknown [id number] 286 1976 Unknown [id number] 259 1976 Unknown [id number] 259 1976 Unknown [id number] 259 1976 Unknown [id number] 96 1959 Unknown [id number] 1959 Unknown [id number] Blue Cross [place] [address] [id number] Self-pay Self Pay [id number] Unknown [id number] Social History Date Type Detail Facility Unknown if ever smoked [facility] [employer] Other Start: 11-06-2020 End: 05-26-2023 Sex Assigned At [facility] [employer] Other Start: 1975 Sex Assigned At Female F [facility] Start: 08-23-2017 [facility] Start: 08-23-2017 Tobacco use and exposure Smokeless tobacco non-user [facility] Start: 05-26-2023 Alcohol intake Current non-dr inspector fibrous wallboard of alcohol (finding) [facility] Start: 11-06-2020 End: 05-26-2023 History of Social function [facility] Childcare Unknown [facility] Start: 1975 Sex Assigned At Not on file [facility] Medical Equipment Procedure Code Equipment Code [...] leave a message. documented in this encounter [facility] 12-24-2023 Telephone encount er Note Attempted to contact patient to reschedule appointment on 05/31/[address] Verdugo is out of the office. No Vm set up to leave a message. T [facility] 05-03-2023 Evaluation note Encounter Date [...] fever. Patient/Parent verbalized understanding of treatment plan. [facility] Other 02-21-2023 Evaluation note* Encounter Date Diagnosis [...] weeks for the cough to go away [facility] Other 01-02-2023 Evaluation note* Encounter Date Diagnosis [...] obtained for C&S. Will call with results. [facility] Other 12-19-2022 Evaluation note* Encounter Date Diagnosis Assessment Notes Treatment Notes Treatment Clinical Notes Aug, Gastroesophageal ref lux disease, unspecified whether esophagitis present (ICD-10 - K21.9) Aug, PCOS (polycystic ovarian syndrome) (ICD-10 - E28.2) [facility] Other 10-18-2022 Evaluation note* Encounter Date Diagnosis Assessment Notes Treatment Notes Treatment Clinical Notes Jun, Fibromyalgia (ICD-10 - M79.7) Continue current treatment regimen. Printed off script to use as needed [facility] Other 10-04-2022 Evaluation note* Encounter Date Diagnosis Assessment Notes Treatment Notes Treatment Clinical Notes Jun, Primary hypertension (ICD-10 - I10) Jun, SJ (generalized anxiety disorder) (ICD-10 - F41.1) [facility] Other 07-07-2022 Evaluation note* Encounter Date Diagnosis Assessment Notes Treatment Notes Treatment Clinical Notes Mar, Right hip pain (ICD-10 - M25.551) [facility] Other 05-10-2022 Evaluation note* Encounter Date Diagnosis Assessment Notes Treatment Notes Treatment Clinical Notes January, Gastroesophageal ref lux disease, unspecified whether esophagitis present (ICD-10 - K21.9) Continue to take medication as directed. January, PCOS (polycystic ovarian syndrome) (ICD-10 - E28.2) Take medication as directed with food [facility] Other 03-16-2022 Evaluation note* Encounter Date Diagnosis Assessment Notes Treatment Notes Treatment Clinical Notes Nov, Sacral back pain (ICD-10 - M53.3) [facility] Other 02-14-2022 Evaluation note* Encounter Date Diagnosis Assessment Notes Treatment Notes Treatment Clinical Notes Oct, Gastroesophageal ref lux disease, unspecified whether esophagitis present (ICD-10 - K21.9) [facility] Other 02-14-2022 Evaluation note* Encounter Date Diagnosis Assessment Notes Treatment Notes Treatment Clinical Notes Oct, Sacral back pain (ICD-10 - M53.3) [facility] Other 2021 Evaluation note* Encounter Date Diagnosis [...] Patient care instructions given in writting by [facility] Home document. [facility] [employer] Other Evaluation noteNo InformationNort [employer] Other Evaluation noteNo assessment information available [facility] Work Phone: History general Narrative - Reported* Type Description Date Medical History asthma Medical History pcos Medical History Fibromyalgia Medical History Hypothyroidism - euthyroid Medical History chronic fatigue Surgical History gall bladder Surgical History vein removed in bilaterally Surgical History gastric sleeve Hospitalization History see above Hospitalization History CHILD X'S 5 [facility] Other InstructionsNot on filedocumented in this encounter [facility] for visit NarrativeDermatology Referral Update [facility] [employer] Other Summary Purpose Family History No Family [...] section and content) DATE CREATED AUTHOR 03/27/2022 [facility] DATE CREATED AUTHOR AUTHOR'S ORGANIZ ATION 01/29/2023 [facility] DATE CREATED AUTHOR AUTHOR'S ORGANIZ ATION 11/08/2023 [facility] DATE CREATED AUTHOR AUTHOR'S ORGANIZ ATION 01/12/2024 [facility] DATE CREATED AUTHOR AUTHOR'S ORGANIZ ATION 01/19/2024 [facility] Care Teams (unrecognized sec tion and content) Team Status: Inactive Member Role Status Dates PHYSICIAN NO FAMILY Primary Care Provider Active CHRISTIANO Jha Attending Provider Active Team Status: Active Member Role Status Dates PHYSICIAN NO FAMILY Primary Care Provider Active [employer] Relationship Specialty Start Date End Date Mona Morin APRN-FNP [address] [place] [address] PCP - General Family Medicine 01/08/21 Goals [...] BE BASED ON THE PRIMARY CLINICAL RECORDS. [facility] [employer] [facility]. provides no warranty or guarantee of the accuracy or completeness of information in this document.
[2024-02-01 09:50] LABS: Alanine Aminotransferase 64 U/L (14-59); Albumin Globulin Ratio 0.9; Albumin Level 3.5 g/dL (3.4-5.0); Alkaline Phosphatase 82 U/L (46-116); Anion Gap 11.3; Aspartate Amino Transferase 34 U/L (15-37); BUN Creatinine Ratio 19.8; Bilirubin Total 0.4 mg/dL (0.2-1.0); Calcium 9.8 mg/dL (8.5-10.1); Chloride 103 mmol/L (98-107); Chol HDL Ratio 2.5; Cholesterol 196 mg/dL (<=200); Estimated GFR (African America >60 (>=60); Estimated GFR (Non-African Ame >60 (>=60); Globulin 3.9 g/dL; Glucose 100 mg/dL (74-106); HDL Cholesterol 80 mg/dL (40-60); Potassium 4.3 mmol/L (3.5-5.1); Sodium 139 mmol/L (136-145); Thyroid Stimulating Hormone 3.065 uIU/mL (0.358-3.740); Total Protein 7.4 g/dL (6.4-8.2); Triglycerides 48 mg/dL (<=150); VLDL CHOLESTEROL 9.6 mg/dL
[2024-02-01 10:10] LABS: Bilirubin Urine NEGATIVE (NEGATIVE); Blood Urine NEGATIVE (NEGATIVE); Clarity Urine CLEAR (CLEAR); Color Urine YELLOW (YELLOW); Glucose Urine UA NEGATIVE (NEGATIVE); Ketones Urine NEGATIVE (NEGATIVE); Leukocyte Esterase Urine TRACE (NEGATIVE); Nitrite Urine NEGATIVE (NEGATIVE); Protein Urine NEGATIVE (NEG/TRACE); Specific Gravity Urine 1.015 (1.005-1.025); Urobilinogen Urine 0.2 EU/dL (0.2-1.0)
[2024-02-01 10:18] LABS: Urine Microscopic Indicated YES
[2024-02-01 10:19] LABS: Bacteria Urine NONE SEEN #/HPF (NONE SEEN); Mucus Urine NONE SEEN (NONE SEEN); RBC Urine NONE SEEN #/HPF (0-2); WBC Urine 0-2 #/HPF (NONE SEEN)
[2024-02-01 10:20] LABS: Cast Seen? SEEN #/LPF (NONE SEEN); Hyaline Casts Urine RARE; Squamous Epithelial Cell Urine FEW #/LPF (NONE/RARE)
[2024-02-01 10:21] LABS: Urine Culture Indicated NO
[2024-02-01 10:39] LABS: Creatinine Urine Random 130.75 mg/dL (20.00-300.00); Microalbum Creatinine Ratio Ur 9.9 mg/g (0.0-29.9); Microalbumin Urine Random 1.3 mg/dL (<=30.0)
[2024-02-01 10:50] LABS: Free T4 0.88 ng/dL (0.76-1.46)
[2024-02-01 11:20] LABS: Estimated Average Glucose 123 mg/dL; Glycohemoglobin A1C 5.9 % (4.5-6.2)
== END 2024-02-01 08:48 | disposition home or self-care (01) ==
LOC: LAB 08:47
PROVIDERS: PCP Radiology Diagnostic Radiology; Visit Provider Nurse Practitioner
DX: E03.9 Hypothyroidism, unspecified (principal); E78.2 Mixed hyperlipidemia; I10 Essential (primary) hypertension; E11.9 Type 2 diabetes mellitus without complications
CPT/HCPCS: 36415; 80053; 80061; 81001; 82043; 82570; 83036; 84439; 84443; 85025

== ENCOUNTER 2024-02-01 08:59 | Outpatient (OUT) | payer BC, MEDICAID, SELFPAY ==
--- NOTE | 2024-02-01 09:02 | MR_ITS ---
[address] [address] Patient Name: JONNATHAN SEPULVEDA MRN: [id number] date: 1975 Sex: F Assigned Patient Location: MRI Current Patient Location: MRI Accession/Order Number: [id number] Exam Date: 02/01/2024 09:15 Report Date: 02/01/2024 13:47 At the request of: ANDERSON BEANRADILAN Procedure: MR cervical spine wo con EXAM: MR cervical spine wo con CLINICAL INDICATION: cervical radiculopathy COMPARISON: CT cervical spine 01/12/2024. TECHNIQUE/PROTOCOL: Standard noncontrast cervical spine protocol MR performed (Sagittal STIR, T1, T2, axial gradient, T2-weighted images). FINDINGS: Evaluation is limited due to patient motion artifact. Spinal Cord: Grossly normal in caliber and signal. Epidural Hematoma: None. Alignment: Normal cervical spine alignment and craniocervical junction. Marrow Signal: Normal. Vertebral Body Heights: Maintained. Paraspinal Soft Tissues: Normal. Neck Soft Tissues: Normal. Spondylotic Changes: Mild multilevel spondylotic changes with varying degrees of disc desiccation, osteophytic ridging, and facet hypertrophy. C2-C3: No disc bulge or herniation. No high-grade spinal canal or foraminal narrowing. C3-C4: No disc bulge or herniation. No high-grade spinal canal narrowing. Mild right foraminal narrowing is contributed to by uncovertebral and facet joint hypertrophy. Left foramen is patent. C4-C5: No disc bulge or herniation. No high-grade spinal canal narrowing. Mild bilateral foraminal narrowing is contributed to by uncovertebral and facet joint hypertrophy. C5-C6: Small disc osteophyte complex, eccentric towards the right, indents the ventral thecal sac and flattens the ventral spinal cord surface. This narrows the right lateral recess. Mild to moderate spinal canal narrowing. Moderate right and mild left foraminal narrowing is contributed to by uncovertebral and facet joint hypertrophy. C6-C7: Slight disc osteophyte complex minimally indents the ventral thecal sac. Mild spinal canal narrowing. No high-grade foraminal narrowing. Minimal bilateral facet hypertrophy. C7-T1: No disc bulge or herniation. No high-grade spinal canal or foraminal narrowing. MR/MR cervical spine wo con IMPRESSION: 1. Evaluation is limited due to patient motion artifact. Given this constraint, there is mild multilevel spondylotic changes without high-grade spinal canal narrowing at any cervical level. 2. Small disc osteophyte complex at C5-C6 is eccentric towards the right and results in [id number] spinal canal narrowing. This narrows the right lateral recess. 3. Foraminal narrowing is at most moderate on the right at C5-C6. Electronically authenticated by: ELEN VICTOR Date: 02/01/2024 13:47
--- OUTSIDE RECORDS SUMMARY | 2024-02-01 09:16 | XMS_ITS | CCD ---
Author Organization [facility] Care Team Providers Care Membership Administrator Name Role Phone Devorachrissie Kaylie Unavailable Mona Morin Unavailable NO FAMILY, PHYSICIAN Primary Care Provider Unava ilCHRISTIANO Lazaro Attending Provider [phone] MONA MORIN Primary Care Unavailable MISC, DR ELIAS Attending Unavailable MISC, DR ELIAS Admitting Unavailable AICHHOLShannan, PLANT ETIOLOGIST ELSI Consulting Unavailable MONA MORIN Consulting Unavailable MIKEL, MONA Primary Care Unavailable MIKEL, MONA Admitting Unavailable MIKEL, MONA Attending Unavailable MIKEL, MONA Primary Care Unavailable MIKEL, MONA Admitting Unavailable MIKEL, MONA Attending Unavailable MIKEL MONA Consulting Unavailable Priyanka Jones Unavailable TD BERUMEN Attending Unavailable MIKEL MONA Referring Unavailable MIKEL, MONA Primary Care Unavailable Mikel SENIOR INSTRUCTIONAL DESIGNER-DIGITAL MARKETING ASSOCIATE, Mona Primary Care Provide r ELSI SUAREZ Attending Unavailable ELSI SUAREZ Attending Unavailable ELSI SUAREZ Attending Unavailable Elyssa MCBRIDE, [place] Mosqueda Attending Unavailable Allergies Allergy Classification Reported Allergen(s) Allergy Type Date of Onset Reaction(s) Facility (5 sources) Cephalexin Drug Allergy rash [facility] Other (12 sources) Cephalexin Drug Allergy rash [facility] Other (1 source) Sulfamethoxazole / Trimethoprim Drug Allergy 3 [facility] Repository Medications Current Medications Medication Drug Class(es) Dates Sig (Normalized) Sig (Original) [id number] 200 actuat albuterol 0.09 mg/actuat metered dose [...] oral solution (2 sources) alpha-Adrenergic Agonist, Uncompetitive D-tqbxio-F-aspartate Receptor Antagonist, Sigma-1 Agonist Start: 08-31-2021 take [...] pyogenes Org specific cx Ql (Throat) Negative [facility] Other Quick Strep [facility] Other INSULINon 01-26-2023 Insulin 21.3 uIU/mL Normal 2.6-24.9 [facility] Comment on above: Performed By: #### I NSULIN #### [facility] [address] [place] [address] Dr. Yvan Manzano CORTISOLon 01-23-2023 Cortisol 11.2 ug/dL Normal 6.2-19.4 [facility] Comment on above: Result Comment: [place] Note: The reference interval and flagging for this test is for an AM collection. If this is a PM collection please use: Cortisol PM: 2.3-11.9 [facility] also offers: [id number]: Cortisol- AM [id number]: Cortisol- PM Performed By: #### C BC #### [facility] [address] [place] [address] Dr. Yvan Manzano CBC AUTO DIFFon 01-22-2023 BASO # 0.1 103/ul Normal 0.0-0.1 [facility] Comment on above: Performed By: #### C BC #### [facility] [address] [place] [address] Dr. Yvan Manzano Basophils/100 WBC (Bld) 0.9 % Normal 0.2-2.0 [facility] Comment on above: Performed By: #### C BC #### [facility] [address] [place] [address] Dr. Yvan Manzano EO # 0.3 103/ul Normal 0.0-0.7 [facility] Comment on above: Performed By: #### C BC #### [facility] [address] [place] [address] Dr. Yvan Manzano Eosinophils/100 WBC (Bld) 5.7 % Normal 0.9-7.0 [facility] Comment on above: Performed By: #### C BC #### [facility] [address] [place] [address] Dr. Yvan Manzano Erythrocyte distribution width (RBC) [Ratio] 14.6 % Normal 11.0-15.0 [facility] Comment on above: Performed By: #### C BC #### [facility] [address] [place] [address] Dr. Yvan Manzano Hematocrit (Bld) [Volume fraction] 36.8 % Normal 36.0-48.0 [facility] Comment on above: Performed By: #### C BC #### [facility] [address] [place] [address] Dr. Yvan Manzano Hemoglobin (Bld) [Mass/Vol] 11.4 g/dL Critically low 12.0-16.0 [facility] Comment on above: Performed By: #### C BC #### [facility] [address] [place] [address] Dr. Yvan Manzano IG # 0.02 10e3/ul Normal 0.00-0.03 [facility] Comment on above: Performed By: #### C BC #### [facility] [address] [place] [address] Dr. Yvan Manzano IG % 0.3 % Normal 0.0-0.5 [facility] Comment on above: Performed By: #### C BC #### [facility] [address] [place] [address] Dr. Yvan Manzano LYMPH # 1.5 103/ul Normal 1.2-3.8 [facility] Comment on above: Performed By: #### C BC #### [facility] [address] [place] [address] Dr. Yvan Manzano Lymphocytes/100 WBC (Bld) 25.3 % Normal 20.5-60.0 [facility] Comment on above: Performed By: #### C BC #### [facility] [address] [place] [address] Dr. Yvan Manzano MANUAL DIFF REQ NO Normal [facility] Comment on above: Performed By: #### C BC #### [facility] [address] [place] [address] Dr. Yvan Manzano MCH (RBC) [Entitic mass] 25.2 pg Critically low 26.7-34.0 [facility] Comment on above: Performed By: #### C BC #### [facility] [address] [place] [address] Dr. Yvan Manzano MCHC (RBC) [Mass/Vol] 31.0 g/dL Normal 29.9-35.2 [facility] Comment on above: Performed By: #### C BC #### [facility] [address] [address] [address] Yvan Manzano MCV (RBC) [Entitic vol] 81.4 fL Normal 81.0-99.0 [facility] Comment on above: Performed By: #### C BC #### [facility] [address] [address] [address] Yvan Manzano MONO # 0.4 103/ul Normal 0.3-0.8 [facility] Comment on above: Performed By: #### C BC #### [facility] [address] [place] [address] Dr. Yvan Manzano Monocytes/100 WBC (Bld) 7.7 % Normal 1.7-12.0 [facility] Comment on above: Performed By: #### C BC #### [facility] [address] [place] [address] Dr. Yvan Manzano NEUT # 3.5 103/ul Normal 1.4-6.5 [facility] Comment on above: Performed By: #### C BC #### [facility] [address] [place] [address] Dr. Yvan Manzano Neutrophils/100 WBC (Bld) 60.1 % Normal 43.0-75.0 [facility] Comment on above: Performed By: #### C BC #### [facility] [address] [place] [address] Dr. Yvan Manzano Platelet mean volume (Bld) [Entitic vol] 8.8 fL Critically low 9.5-13.5 [facility] Comment on above: Performed By: #### C BC #### [facility] [address] [place] [address] Dr. Yvan Manzano PLT 347 103/ul Normal 150-450 [facility] Comment on above: Performed By: #### C BC #### [facility] [address] [place] [address] Dr. Yvan Manzano RBC 4.52 106/ul Normal 4.20-5.40 [facility] Comment on above: Performed By: #### C BC #### [facility] [address] [place] [address] Dr. Yvan Manzano WBC 5.7 103/ul Normal 4.0-11.0 [facility] Comment on above: Performed By: #### C BC #### [facility] [address] [place] [address] Dr. Yvan Manzano FREE T4on 01-22-2023 Free T4 [Mass/Vol] 0.84 ng/dL Normal 0.76-1.46 [facility] Comment on above: Performed By: #### F T4 #### [facility] [address] [place] [address] Dr. Yvan Manzano LIPID PROFILEon 01-22-2023 CHOL-HDL RATIO NORM SEE BELOW Normal [facility] Comment on above: Result Comment: 3.3 - 4.4 LOW RISK 4.4 - 7.1 AVERAGE RISK 7.1 - 11.0 MODERATE RISK >11.0 HIGH RISK Performed By: #### T SH, LIPID #### [facility] [address] [place] [address] Dr. Yvan Manzano Cholesterol [Mass/Vol] 264 mg/dL Critically high <=200 [facility] Comment on above: Performed By: #### T SH, LIPID #### [facility] [address] [place] [address] Dr. Yvan Manzano Cholesterol in HDL [Mass/Vol] 52 mg/dL Normal 40-60 [facility] Comment on above: Performed By: #### T SH, LIPID #### [facility] [address] [place] [address] Dr. Yvan Manzano Cholesterol in LDL [Mass/Vol] 173.6 mg/dL Normal [facility] Comment on above: Performed By: #### T SH, LIPID #### [facility] [address] [place] [address] Dr. Yvan Manzano Cholesterol.total/Ch olesterol in HDL [Mass ratio] 5.1 {ratio} Normal [facility] Comment on above: Performed By: #### T SH, LIPID #### [facility] [address] [place] [address] Dr. Yvan Manzano HDL NORMAL > or = 60 mg/dl - LOW CARDIOVASCULAR RISK <40 mg/dl - HIGH CARDIOVASCULAR RISK Normal [facility] Comment on above: Performed By: #### T SH, LIPID #### [facility] [address] [address] [address] Yvan Manzano LDL CALC NORMAL SEE BELOW Normal [facility] Comment on above: Result Comment: <100 mg/dl OPTIMAL 100 - 129 mg/dl NEAR OR ABOVE OPTIMAL 130 - 159 mg/dl BORDERLINE HIGH 160 - 189 mg/dl HIGH >190 mg/dl VERY HIGH Performed By: #### T SH, LIPID #### [facility] [address] [address] [address] Yvan Manzano Triglyceride [Mass/Vol] 192 mg/dL Critically high <=150 [facility] Comment on above: Performed By: #### T SH, LIPID #### [facility] [address] [place] [address] Dr. Yvan Manzano VLDL CALC 38.4 mg/dL Normal [facility] Comment on above: Performed By: #### T SH, LIPID #### [facility] [address] [place] [address] Dr. Yvan Manzano TSHon 01-22-2023 TSH 5.749 uIU/mL Critically high 0.358-3.740 [facility] Comment on above: Performed By: #### T SH, LIPID #### [facility] [address] [place] [address] Dr. Yvan Manzano GLYCOHEMOGLOBIN A1Con 2022 ADA RECOMMENDATION SEE BELOW Normal [facility] Comment on above: Result Comment: ADA RECOMMENDED LIMIT 4.0 - 6.0 ADA THERAPEUTIC TARGET < 7.0 ACTION SUGGESTED > 7.0 Performed By: #### A 1C #### [facility] [address] [address] [address] Yvan Manzano Glucose [Mass/Vol] 137 mg/dL Normal [facility] Comment on above: Performed By: #### A 1C #### [facility] [address] [place] [address] Dr. Yvan Manzano HbA1c (Bld) [Mass fraction] 6.4 % Critically high 4.5-6.2 [facility] Comment on above: Performed By: #### A 1C #### [facility] [address] [place] [address] Dr. Yvan Manzano PROF 14(COMP METB)on 023 Albumin [Mass/Vol] 3.4 g/dL Normal 3.4-5.0 [facility] Comment on above: Performed By: #### C MP #### [facility] [address] [place] [address] Dr. Yvan Manzano Albumin/Globulin [Mass ratio] 0.9 {ratio} Normal [facility] Comment on above: Performed By: #### C MP #### [facility] [address] [place] [address] Dr. Yvan Manzano ALP [Catalytic activity/Vol] 74 U/L Normal 46-116 [facility] Comment on above: Performed By: #### C MP #### [facility] [address] [place] [address] Dr. Yvan Manzano ALT [Catalytic activity/Vol] 25 U/L Normal 14-59 [facility] Comment on above: Performed By: #### C MP #### [facility] [address] [place] [address] Dr. Yvan Manzano Anion gap [Moles/Vol] 9.4 mmol/L Normal [facility] Comment on above: Performed By: #### C MP #### [facility] [address] [place] [address] Dr. Yvan Manzano AST [Catalytic activity/Vol] 17 U/L Normal 15-37 [facility] Comment on above: Performed By: #### C MP #### [facility] [address] [place] [address] Dr. Yvan Manzano Bilirubin [Mass/Vol] 0.1 mg/dL Critically low 0.2-1.0 [facility] Comment on above: Performed By: #### C MP #### [facility] [address] [place] [address] Dr. Yvan Manzano Calcium [Mass/Vol] 9.2 mg/dL Normal 8.5-10.1 [facility] Comment on above: Performed By: #### C MP #### [facility] [address] [address] [address] Yvan Manzano Chloride [Moles/Vol] 101 mmol/L Normal 98-107 [facility] Comment on above: Performed By: #### C MP #### [facility] [address] [address] [address] Yvan Manzano CO2 [Moles/Vol] 30.4 mmol/L Normal 21.0-32.0 [facility] Comment on above: Performed By: #### C MP #### [facility] [address] [address] [address] Yvan Manzano Creatinine [Mass/Vol] 0.71 mg/dL Normal 0.55-1.02 [facility] Comment on above: Performed By: #### C MP #### [facility] [address] [place] [address] Dr. Yvan Manzano EGFR-AF TURKISH >60 Normal >=60 [facility] Comment on above: Performed By: #### C MP #### [facility] [address] [address] [address] Yvan Manzano EGFR-NON AF TURKISH >60 Normal >=60 [facility] Comment on above: Performed By: #### C MP #### [facility] [address] [address] [address] Yvan Manzano Globulin (S) [Mass/Vol] 4.0 g/dL Normal [facility] Comment on above: Performed By: #### C MP #### [facility] [address] [address] [address] Yvan Manzano Glucose [Mass/Vol] 138 mg/dL Critically high 74-106 [facility] Comment on above: Performed By: #### C MP #### [facility] [address] [address] [address] Yvan Manzano Potassium [Moles/Vol] 3.8 mmol/L Normal 3.5-5.1 [facility] Comment on above: Performed By: #### C MP #### [facility] [address] [address] [address] Yvan Manzano Protein [Mass/Vol] 7.4 g/dL Normal 6.4-8.2 [facility] Comment on above: Performed By: #### C MP #### [facility] [address] [address] [address] Yvan Manzano Sodium [Moles/Vol] 137 mmol/L Normal 136-145 [facility] Comment on above: Performed By: #### C MP #### [facility] [address] [place] [address] Dr. Yvan Manzano Urea nitrogen [Mass/Vol] 13.0 mg/dL Normal 7.0-18.0 [facility] Comment on above: Performed By: #### C MP #### [facility] [address] [place] [address] Dr. Yvan Manzano Urea nitrogen/Creatinine [Mass ratio] 18.3 mg/mg Normal [facility] Comment on above: Performed By: #### C MP #### [facility] [address] [place] [address] Dr. Yvan Manzano LIPID PROFILEon 03-31-2022 CHOL-HDL RATIO NORM SEE BELOW Normal [facility] Comment on above: Result Comment: 3.3 - 4.4 LOW RISK 4.4 - 7.1 AVERAGE RISK 7.1 - 11.0 MODERATE RISK >11.0 HIGH RISK Performed By: #### C MP, LIPID #### [facility] [address] [place] [address] Dr. Yvan Manzano Cholesterol [Mass/Vol] 229 mg/dL Critically high <=200 [facility] Comment on above: Performed By: #### C MP, LIPID #### [facility] [address] [address] [address] Yvan Manzano Cholesterol in HDL [Mass/Vol] 51 mg/dL Normal 40-60 [facility] Comment on above: Performed By: #### C MP, LIPID #### [facility] [address] [address] [address] Yvan Manzano Cholesterol in LDL [Mass/Vol] 150.4 mg/dL Normal [facility] Comment on above: Performed By: #### C MP, LIPID #### [facility] [address] [address] [address] Yvan Manzano Cholesterol.total/Ch olesterol in HDL [Mass ratio] 4.5 {ratio} Normal [facility] Comment on above: Performed By: #### C MP, LIPID #### [facility] [address] [address] [address] Yvan Manzano HDL NORMAL > or = 60 mg/dl - LOW CARDIOVASCULAR RISK <40 mg/dl - HIGH CARDIOVASCULAR RISK Normal [facility] Comment on above: Performed By: #### C MP, LIPID #### [facility] [address] [address] [address] Yvan Manzano LDL CALC NORMAL SEE BELOW Normal [facility] Comment on above: Result Comment: <100 mg/dl OPTIMAL 100 - 129 mg/dl NEAR OR ABOVE OPTIMAL 130 - 159 mg/dl BORDERLINE HIGH 160 - 189 mg/dl HIGH >190 mg/dl VERY HIGH Performed By: #### C MP, LIPID #### [facility] [address] [place] [address] Dr. Yvan Manzano Triglyceride [Mass/Vol] 138 mg/dL Normal <=150 [facility] Comment on above: Performed By: #### C MP, LIPID #### [facility] [address] [place] [address] Dr. Yvan Manzano VLDL CALC 27.6 mg/dL Normal [facility] Comment on above: Performed By: #### C MP, LIPID #### [facility] [address] [address] [address] Yvan Manzano MICROALB CREAT RATIO RANDOMo n 03-31-2022 mALB 1.4 mg/L Normal <=30.0 [facility] Comment on above: Performed By: #### M CRR #### [facility] [address] [place] [address] Dr. Yvan Manzano MALB CR RATIO 6.0 mg/g Normal 0.0-29.9 [facility] Comment on above: Performed By: #### M CRR #### [facility] [address] [place] [address] Dr. Yvan Manzano MALB CR RATIO RANGE SEE BELOW Normal [facility] Comment on above: Result Comment: NO M ICROALBUMINURIA 0-29 MG/G CLINICAL MICROALBUMINURIA 30-300 MG/G MACROALBUMINURIA >300 MG/G Performed By: #### M CRR #### [facility] [address] [address] [address] Yvan Manzano URINE CREAT 232.88 mg/dL Normal 20.00-300.00 [facility] Comment on above: Performed By: #### M CRR #### [facility] [address] [address] [address] Yvan Manzano PROF 14(COMP METB)on 022 Albumin [Mass/Vol] 3.6 g/dL Normal 3.4-5.0 [facility] Comment on above: Performed By: #### C MP, LIPID #### [facility] [address] [place] [address] Dr. Yvan Manzano Albumin/Globulin [Mass ratio] 0.9 {ratio} Normal [facility] Comment on above: Performed By: #### C MP, LIPID #### [facility] [address] [place] [address] Dr. Yvan Manzano ALP [Catalytic activity/Vol] 63 U/L Normal 46-116 [facility] Comment on above: Performed By: #### C MP, LIPID #### [facility] [address] [place] [address] Dr. Yvan Manzano ALT [Catalytic activity/Vol] 33 U/L Normal 14-59 [facility] Comment on above: Performed By: #### C MP, LIPID #### [facility] [address] [place] [address] Dr. Yvan Manzano Anion gap [Moles/Vol] 11.7 mmol/L Normal [facility] Comment on above: Performed By: #### C MP, LIPID #### [facility] [address] [place] [address] Dr. Yvan Manzano AST [Catalytic activity/Vol] 23 U/L Normal 15-37 [facility] Comment on above: Performed By: #### C MP, LIPID #### [facility] [address] [address] [address] Yvan Manzano Bilirubin [Mass/Vol] 0.2 mg/dL Normal 0.2-1.0 [facility] Comment on above: Performed By: #### C MP, LIPID #### [facility] [address] [address] [address] Yvan Manzano Calcium [Mass/Vol] 9.5 mg/dL Normal 8.5-10.1 [facility] Comment on above: Performed By: #### C MP, LIPID #### [facility] [address] [address] [address] Yvan Manzano Chloride [Moles/Vol] 102 mmol/L Normal 98-107 [facility] Comment on above: Performed By: #### C MP, LIPID #### [facility] [address] [place] [address] Dr. Yvan Manzano CO2 [Moles/Vol] 28.0 mmol/L Normal 21.0-32.0 [facility] Comment on above: Performed By: #### C MP, LIPID #### [facility] [address] [place] [address] Dr. Yvan Manzano Creatinine [Mass/Vol] 0.71 mg/dL Normal 0.55-1.02 [facility] Comment on above: Performed By: #### C MP, LIPID #### [facility] [address] [place] [address] Dr. Yvan Manzano EGFR-AF TURKISH >60 Normal >=60 [facility] Comment on above: Performed By: #### C MP, LIPID #### [facility] [address] [place] [address] Dr. Yvan Manzano EGFR-NON AF TURKISH >60 Normal >=60 [facility] Comment on above: Performed By: #### C MP, LIPID #### [facility] [address] [place] [address] Dr. Yvan Manzano Globulin (S) [Mass/Vol] 4.0 g/dL Normal [facility] Comment on above: Performed By: #### C MP, LIPID #### [facility] [address] [address] [address] Yvan Manzano Glucose [Mass/Vol] 87 mg/dL Normal 74-106 [facility] Comment on above: Performed By: #### C MP, LIPID #### [facility] [address] [address] [address] Yvan Manzano Potassium [Moles/Vol] 3.7 mmol/L Normal 3.5-5.1 [facility] Comment on above: Performed By: #### C MP, LIPID #### [facility] [address] [address] [address] Yvan Manzano Protein [Mass/Vol] 7.6 g/dL Normal 6.4-8.2 [facility] Comment on above: Performed By: #### C MP, LIPID #### [facility] [address] [address] [address] Yvan Manzano Sodium [Moles/Vol] 138 mmol/L Normal 136-145 [facility] Comment on above: Performed By: #### C MP, LIPID #### [facility] [address] [address] [address] Yvan Manzano Urea nitrogen [Mass/Vol] 14.0 mg/dL Normal 7.0-18.0 [facility] Comment on above: Performed By: #### C MP, LIPID #### [facility] [address] [address] [address] Yvan Manzano Urea nitrogen/Creatinine [Mass ratio] 19.7 mg/mg Normal [facility] Comment on above: Performed By: #### C MP, LIPID #### [facility] [address] [address] [address] Yvan Manzano XR hip RT min 2V(w/wo pelvis )*on 03-26-2022 XR hip RT min 2V(w/wo pelvis)* [place] [address] XRay Report Signed Patient: Tatiana Brewster MR#: [id number] : 1975 Acct:[id number] Age/Sex: 46 / F ADM Date: 03/26/22 [...] Michael Harper M.D.03/26/2022 3:38 PM Dictation Location: [place] [address] Transcribed By: [facility] 03/26/22 1538 Dictated By: Michael Harper DO 03/26/22 1534 Signed By: 03/26/[address] [facility] XR sacrum coccyx min 2Von XR sacrum coccyx min 2V [place] [address] XRay Report Signed Patient: Tatiana Brewster MR#: [id number] : 1975 Acct:[id number] Age/Sex: 45 / F ADM Date: 09/29/21 [...] Laron Villegas M.D.09/29/2021 4:16 PM Dictation Location: [place] [address] Transcribed By: [facility] 09/29/21 161 Dictated By: Laron Villegas II, MD 09/29/21 161 Signed By: 09/29/[address] [facility] COVID Quick Testingon 2020 Result Negative [facility] Other Vital Signs Date Time Vital Sign Value Performing Clinician Facility 05-03-2023 09:05-0400 Body height 157.48 cm Priyanka Jones Other [facility] Other 05-03-2023 09:05-0400 Body mass index (BMI) [Ratio] 35.02 kg/m2 Priyanka Jones Other [facility] Other 05-03-2023 09:05-0400 Body temperature 97.5 [degF] Priyanka Jones Other [facility] Other 05-03-2023 09:05-0400 Body weight 86.86 kg Priyanka Jones Other [facility] Other 05-03-2023 09:05-0400 Diastolic blood pressure 76 mm[Hg] Priyanka Jones Other [facility] Other 05-03-2023 09:05-0400 Respiratory rate 18 /min Priyanka Jones Other [facility] Other 05-03-2023 09:05-0400 SaO2% (BldA) [Mass fraction] 100 % Priyanka Jones Other [facility] Other 05-03-2023 09:05-0400 Systolic blood pressure 117 mm[Hg] Priyanka Jones Other [facility] Other 11-17-2022 11:30-0500 Body height 157.48 cm Mona Morin Other [facility] Other 11-17-2022 11:30-0500 Body mass index (BMI) [Ratio] 35.3 kg/m2 Mona Yeungault Other [facility] Other 11-17-2022 11:30-0500 Body temperature 98.7 [degF] Mona Yeungault Other [facility] Other 11-17-2022 11:30-0500 Body weight 87.54 kg Mona Morin Other [facility] Other 11-17-2022 11:30-0500 Respiratory rate 18 /min Mona Morin Other [facility] Other 11-17-2022 11:30-0500 SaO2% (BldA) [Mass fraction] 98 % Mona Morin Other [facility] Other 09-28-2022 16:30-0500 Body height 157.48 cm Mona Yeungault Other [facility] Other 09-28-2022 16:30-0500 Body mass index (BMI) [Ratio] 35.3 kg/m2 Mona Yeungault Other [facility] Other 09-28-2022 16:30-0500 Body temperature 98 [degF] Mona Morin Other [facility] Other 09-28-2022 16:30-0500 Body weight 87.54 kg Mona Morin Other [facility] Other 09-28-2022 16:30-0500 Diastolic blood pressure 79 mm[Hg] Mona Morin Other [facility] Other 09-28-2022 16:30-0500 Respiratory rate 18 /min Mona Morin Other [facility] Other 09-28-2022 16:30-0500 SaO2% (BldA) [Mass fraction] 98 % Mona Morin Other [facility] Other 09-28-2022 16:30-0500 Systolic blood pressure 130 mm[Hg] Mona Morin Other [facility] Other 07-14-2022 15:00-0400 Body height 157.48 cm Mona Morin Other [facility] Other 07-14-2022 15:00-0400 Body mass index (BMI) [Ratio] 35.66 kg/m2 Mona Morin Other [facility] Other 07-14-2022 15:00-0400 Body weight 88.45 kg Mona Morin Other [facility] Other 07-14-2022 15:00-0400 Diastolic blood pressure 89 mm[Hg] Mona Yeungault Other [facility] Other 07-14-2022 15:00-0400 Respiratory rate 18 /min Mona Morin Other [facility] Other 07-14-2022 15:00-0400 SaO2% (BldA) [Mass fraction] 98 % Mona Yeungault Other [facility] Other 07-14-2022 15:00-0400 Systolic blood pressure 145 mm[Hg] Mona Yeungault Other [facility] Other 06-30-2022 12:00-0400 Body height 157.48 cm Mona Yeungault Other [facility] Other 06-30-2022 12:00-0400 Body mass index (BMI) [Ratio] 35.48 kg/m2 Mona Yeungault Other [facility] Other 06-30-2022 12:00-0400 Body temperature 97.7 [degF] Mona Yeungault Other [facility] Other 06-30-2022 12:00-0400 Body weight 88 kg Mona Yeungault Other [facility] Other 06-30-2022 12:00-0400 Diastolic blood pressure 87 mm[Hg] Mona Yeungault Other [facility] Other 06-30-2022 12:00-0400 Respiratory rate 18 /min Mona Yeungault Other [facility] Other 06-30-2022 12:00-0400 SaO2% (BldA) [Mass fraction] 97 % Mona Morin Other [facility] Other 06-30-2022 12:00-0400 Systolic blood pressure 136 mm[Hg] Mona Morin Other [facility] Other 02-03-2022 11:00-0400 Body height 157.48 cm Mona Morin Other [facility] Other 02-03-2022 11:00-0400 Body mass index (BMI) [Ratio] 35.84 kg/m2 Mona Morin Other [facility] Other 02-03-2022 11:00-0400 Body temperature 98.2 [degF] Mona Morin Other [facility] Other 02-03-2022 11:00-0400 Body weight 88.91 kg Mona Morin Other [facility] Other 02-03-2022 11:00-0400 Diastolic blood pressure 96 mm[Hg] Mona Morin Other [facility] Other 02-03-2022 11:00-0400 Respiratory rate 18 /min Mona Yeungault Other [facility] Other 02-03-2022 11:00-0400 SaO2% (BldA) [Mass fraction] 99 % Mona Yeungault Other [facility] Other 02-03-2022 11:00-0400 Systolic blood pressure 157 mm[Hg] Mona Yeungault Other [facility] Other 08-31-2021 10:00-0500 Body height 157.48 cm Kaylie Ginty Other [facility] Other 08-31-2021 10:00-0500 Body mass index (BMI) [Ratio] 35.66 kg/m2 Kaylie Ginty Other [facility] Other 08-31-2021 10:00-0500 Body temperature 98.7 [degF] Kaylie Ginty Other [facility] Other 08-31-2021 10:00-0500 Body weight 88.45 kg Kaylie Ginty Other [facility] Other 08-31-2021 10:00-0500 Respiratory rate 18 /min Kaylie Ginty Other [facility] Other 08-31-2021 10:00-0500 SaO2% (BldA) [Mass fraction] 95 % Kaylie Ginty Other [facility] Other Encounters Encounter Date Encounter Type Care Provider Facility Start: 01-17-2024 End: 01-18-2024 ambulatory Montana Bergeron MD Facility:[facility] Start: 01-11-2024 End: 01-11-2024 ambulatory ELSI AICHHOLZ Not Available Start: 12-24-2023 Telephone encounter Saeid Gooden CMA [facility] Start: 11-04-2023 End: 11-04-2023 ambulatory TD BERUMEN [facility] Start: 10-26-2023 End: 10-26-2023 ambulatory ELSI AICHHOLZ Not Available Start: 09-13-2023 End: 09-13-2023 ambulatory ELSI AICHHOLZ Not Available Start: 05-03-2023 End: 05-03-2023 ambulatory Priyanka Jones Other [facility] Other Start: 05-03-2023 Office outpatient visit 15 minutes Priyanka Jones [facility] Start: 01-22-2023 End: 01-23-2023 ambulatory MONA MORIN Facility: Start: 11-23-2022 End: 11-23-2022 ambulatory Mona Morin Other [facility] Other Start: 11-23-2022 Telephone encounter Mona Palmercarolann barrett [facility] Start: 11-20-2022 End: 11-20-2022 ambulatory Mona Morin Other [facility] Other Start: 11-20-2022 Encounter by juan treviño Mona Mikel [facility] Start: 11-17-2022 End: 11-18-2022 ambulatory MONA MIKEL [facility] Other Start: 11-17-2022 Office outpatient visit 15 minutes Mona Mikel [facility] Start: 10-06-2022 End: 10-06-2022 ambulatory Mona Morin Other [facility] Other Start: 10-06-2022 Telephone encounter Mona hyde [facility] Start: 09-29-2022 End: 09-29-2022 ambulatory PHYSICIAN NO [facility] Work Phone: Start: 09-29-2022 End: 09-29-2022 Departed Referred PHYSICIAN NO [facility] [address] [place] Work Phone: Start: 09-28-2022 End: 09-28-2022 ambulatory Mona Morin Other [facility] Other Start: 09-28-2022 Office outpatient visit 15 minutes Mona Mikel [facility] Start: 09-14-2022 End: 09-14-2022 ambulatory Mona Mikel Other [facility] Other Start: 09-14-2022 Telephone encounter Mona Breaul t [facility] Start: 07-14-2022 End: 07-14-2022 ambulatory Mona Mikel Other [facility] Other Start: 07-14-2022 Office outpatient visit 15 minutes Mona Mikel [facility] Start: 06-30-2022 End: 06-30-2022 ambulatory Mona Mikel Other [facility] Other Start: 06-30-2022 Office outpatient visit 15 minutes Mona Mikel [facility] Start: 04-02-2022 End: 04-02-2022 ambulatory Mona Mikel Other [facility] Other Start: 04-02-2022 Telephone encounter Mona Breaul t [facility] Start: 03-31-2022 Telephone encounter Mona Breaul t [facility] Start: 03-31-2022 End: 04-01-2022 ambulatory MONA MIKEL [facility] Other Start: 02-03-2022 End: 02-03-2022 ambulatory Mona Mikel Other [facility] Other Start: 02-03-2022 Office outpatient visit 15 minutes Mona Mikel [facility] Start: 12-10-2021 End: 12-10-2021 ambulatory Mona Mikel Other [facility] Other Start: 12-10-2021 Telephone encounter Mona Breaul t [facility] Start: 11-10-2021 End: 11-10-2021 ambulatory Mona Mikel Other [facility] Other Start: 11-10-2021 Telephone encounter Mona hyde [facility] Start: 09-03-2021 End: 09-03-2021 ambulatory Kaylie Lozoyanty Other [facility] Other Start: 09-03-2021 Telephone encounter Kaylie Maynardy [facility] Start: 08-31-2021 End: 08-31-2021 ambulatory Kaylie Ginty Other [facility] Other Start: 08-31-2021 Office outpatient visit 15 minutes Kaylie Devoranty [facility] Procedures Date Procedure Procedure Detail Performing Clinician Start: 10-11-2017 Mammography Saeid hogue [employer] Start: 02-05-2017 Microscopic observat ion [Identifier] in Cervix by Cyto stain Saeid Gooden [facility] Plan of Treatment Date Care Activity Detail Author Start: 05-26-2024 Adult BMI Screening Adult BMI Screen ing [facility] Start: 05-26-2024 Tobacco Screening Tobacco Screening [facility] Start: 05-28-2023 Influenza vaccination Influenza Vacc ine [facility] Start: 09-29-2022 Aerobic Culture Aerobic Culture [facility] Start: 09-29-2022 Anaerobic Culture Anaerobic Culture [facility] Start: 09-29-2022 Microscopic observat ion [Identifier] in Unspecified specimen by Gram stain Gram Stain [facility] Start: 02-06-2020 Screening for malign ant neoplasm of cervix Pap Smear [facility] Start: 10-11-2018 Screening for malign ant neoplasm of breast Mammogram [facility] Start: 12-06-1995 DTaP,Tdap and Td Vaccines ( - Tdap) DTaP,Tdap and Td Vaccines ( - Tdap) [facility] Start: 1994 Adult BMI Follow Up Plan Adult BMI Follow Up Plan [facility] Start: 1988 Depression Screening Depression Scre ening [facility] Bacteria identified in Unspecified specimen by Aerobe culture [facility] Bacteria identified in Unspecified specimen by Anaerobe culture [facility] Immunizations Immunization Date Immunization Notes Care Provider [employer] fiona 10-01-2020 influenza virus vacc ine, unspecified formulation Saeid Gooden [facility] Payers Date Payer Category Payer Medicaid [id number] 2022 Medicaid [employer] [facility] [facility] MEDICA[facility] [id number] 2022-Present [address] [place] [address] [id number] 2017 Unknown [id number] 1975 Unknown [id number] 93 1975 Unknown [id number] [id number] 93 1975 Unknown [id number] [id number] 93 1975 Unknown [id number] [id number] 286 1975 Unknown [id number] 2.16.840.1.190938.3.579.2.1 259 1975 Unknown [id number] 2.16.840.1.933282.3.579.2.1 259 1975 Unknown [id number] 2.16.840.1.267321.3.579.2.1 259 1975 Unknown [id number] 2.16.840.1.338099.3.579.2.1 96 1959 Unknown [id number] [id number] 1959 Unknown [id number] Blue [employer] [place] [address] [id number] Self-pay Self Pay [id number] Unknown [id number] Social History Date Type Detail Facility Unknown if ever smoked [facility] Other Start: 11-06-2020 End: 05-26-2023 Sex Assigned At [facility] [employer] Other Start: 1975 Sex Assigned At Female F [facility] Start: 08-23-2017 [facility] Start: 08-23-2017 Tobacco use and exposure Smokeless tobacco non-user [facility] Start: 05-26-2023 Alcohol intake Current non-dr panel wirer of alcohol (finding) [facility] Start: 11-06-2020 End: 05-26-2023 History of Social function [facility] Unknown [facility] Start: 1975 Sex Assigned At Not on file P [facility] Medical Equipment Procedure Code Equipment [...] leave a message. documented in this encounter [facility] 12-24-2023 Telephone encount er Note Attempted to contact patient to reschedule appointment on 05/31/[address] Verdugo is out of the office. No Vm set up to leave a message. T [facility] 05-03-2023 Evaluation note Encounter Date Diagnosis [...] fever. Patient/Parent verbalized understanding of treatment plan. [facility] Other 02-21-2023 Evaluation note* Encounter Date Diagnosis [...] weeks for the cough to go away [facility] Other 01-02-2023 Evaluation note* Encounter Date Diagnosis [...] obtained for C&S. Will call with results. [facility] Other 12-19-2022 Evaluation note* Encounter Date Diagnosis Assessment Notes Treatment Notes Treatment Clinical Notes Aug, Gastroesophageal ref lux disease, unspecified whether esophagitis present (ICD-10 - K21.9) Aug, PCOS (polycystic ovarian syndrome) (ICD-10 - E28.2) [facility] Other 10-18-2022 Evaluation note* Encounter Date Diagnosis Assessment Notes Treatment Notes Treatment Clinical Notes Jun, Fibromyalgia (ICD-10 - M79.7) Continue current treatment regimen. Printed off script to use as needed [facility] Other 10-04-2022 Evaluation note* Encounter Date Diagnosis Assessment Notes Treatment Notes Treatment Clinical Notes Jun, Primary hypertension (ICD-10 - I10) Jun, SJ (generalized anxiety disorder) (ICD-10 - F41.1) [facility] Other 07-07-2022 Evaluation note* Encounter Date Diagnosis Assessment Notes Treatment Notes Treatment Clinical Notes Mar, Right hip pain (ICD-10 - M25.551) [facility] Other 05-10-2022 Evaluation note* Encounter Date Diagnosis Assessment Notes Treatment Notes Treatment Clinical Notes January, Gastroesophageal ref lux disease, unspecified whether esophagitis present (ICD-10 - K21.9) Continue to take medication as directed. January, PCOS (polycystic ovarian syndrome) (ICD-10 - E28.2) Take medication as directed with food [facility] Other 03-16-2022 Evaluation note* Encounter Date Diagnosis Assessment Notes Treatment Notes Treatment Clinical Notes Nov, Sacral back pain (ICD-10 - M53.3) [facility] Other 02-14-2022 Evaluation note* Encounter Date Diagnosis Assessment Notes Treatment Notes Treatment Clinical Notes Oct, Gastroesophageal ref lux disease, unspecified whether esophagitis present (ICD-10 - K21.9) [facility] Other 02-14-2022 Evaluation note* Encounter Date Diagnosis Assessment Notes Treatment Notes Treatment Clinical Notes Oct, Sacral back pain (ICD-10 - M53.3) [facility] Other 2021 Evaluation note* Encounter Date Diagnosis [...] given in writting by [facility] document. [facility] Other Evaluation noteNo InformationNort [employer] Other Evaluation noteNo assessment information available [facility] Work Phone: History general Narrative - Reported* Type Description Date Medical History asthma Medical History pcos Medical History Fibromyalgia Medical History Hypothyroidism - euthyroid Medical History chronic fatigue Surgical History gall bladder Surgical History vein removed in bilaterally Surgical History gastric sleeve Hospitalization History see above Hospitalization History CHILD X'S 5 [facility] Other InstructionsNot on filedocumented in this encounter [facility] for visit NarrativeDermatology Referral Update [facility] Other Summary Purpose Family History No Family [...] section and content) DATE CREATED AUTHOR 03/27/2022 [facility] DATE CREATED AUTHOR AUTHOR'S ORGANIZ ATION 01/29/2023 [facility] DATE CREATED AUTHOR AUTHOR'S ORGANIZ ATION 11/08/2023 [facility] DATE CREATED AUTHOR AUTHOR'S ORGANIZ ATION 01/12/2024 [facility] DATE CREATED AUTHOR AUTHOR'S ORGANIZ ATION 01/19/2024 [facility] Care Teams (unrecognized sec tion and content) Team Status: Inactive Member Role Status Dates PHYSICIAN NO FAMILY Primary Care Provider Active CHRISTIANO Jha Attending Provider Active Team Status: Active Member Role Status Dates PHYSICIAN NO FAMILY Primary Care Provider Active Membership Administrator Relationship Specialty Start Date End Date Mona Morin APRN-FNP [address] [place] [address] PCP - General Family Medicine 01/08/21 Goals [...] BE BASED ON THE PRIMARY CLINICAL RECORDS. [facility]. provides no warranty or guarantee of the accuracy or completeness of information in this document.
== END 2024-02-01 09:00 | disposition home or self-care (01) ==
LOC: MRI 08:59
PROVIDERS: PCP Radiology Diagnostic Radiology; Visit Provider Anesthesiology
DX: E03.9 Hypothyroidism, unspecified (principal); E78.2 Mixed hyperlipidemia; I10 Essential (primary) hypertension; E11.9 Type 2 diabetes mellitus without complications; M54.12 Radiculopathy, cervical region; M47.812 Spondylosis without myelopathy or radiculopathy, cervical region
CPT/HCPCS: 36415; 72141; 80053; 80061; 81001; 82043; 82570; 83036; 84439; 84443; 85025

== ENCOUNTER 2024-02-02 14:40 | Outpatient (OUT) | payer BC, MEDICAID, SELFPAY ==
--- NOTE | 2024-02-02 15:09 | P.CN_ITS ---
Consult Note: HPI Data of Consult Patient: known to practice within the last 3 years Consult date: 01/17/24 Requesting Physician: Tegan Grubbs NP Primary Care Provider: Halima Moncada NP Consult Narrative Reason for consult: f/u Narrative: 48yof who presents for assessment. Continues to have right sided neck and s houlder pain, as before, but now also has significant radicular pain into right upper extremity. States she has loss of sensation in right thumb. Cervical CT consistent with mulitlevel spondylosis, though no acute fracture seen. In past 3 months, has undergone >6 weeks of physical therapy, chiropractor, home exercises, stretches, oral steroids, NSAIDs, all without benefit. Uses gabapentin, norco, tizanidine. denies adverse med side effects. Recent cervical MRI consistent with central canal stenosis and multilevel foraminal stenosis. Patient would like to discuss injection therapy options. NNCP at our office due to marijuana use. cc:: CC: Tegan Grubbs NP Review of Systems ROS Status of ROS 10 or more systems reviewed and unremark able except as noted in history and below Musculoskeletal Reports: neck pain and extremity pain [facility] Medical History (Updated 01/17/24 @ 13:05 by Montana Bergeron MD) Varicose vein of leg ?I83.90 - Asymptomatic varicose veins of unspecified lower extremity (ICD-10) Diabetes ?E11.9 - Type 2 diabetes mellitus without complications (ICD-10) PCOS (polycystic ovarian syndrome) ?E28.2 - Polycystic ovarian syndrome (ICD-10) Migraine ?G43.909 - Migraine, unspecified, not intractable, without status migrainosus (ICD-10) Hyperlipidemia ?E78.5 - Hyperlipidemia, unspecified (ICD-10) Hypothyroid ?E03.9 - Hypothyroidism, unspecified (ICD-10) HTN (hypertension) ?I10 - Essential (primary) hypertension (ICD-10) History of gastroesophageal reflux (GERD) ?Z87.19 - Personal history of other diseases of the digestive system (ICD-10) 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, unspecified (ICD-10) Depression ?F32.A - Depression, unspecified (ICD-10) Chronic sinusitis ?J32.9 - Chronic sinusitis, unspecified (ICD-10) Chronic fatigue syndrome with fibromyalgia ?G93.32 - Myalgic encephalomyelitis/chronic fatigue syndrome (ICD-10) ?M79.7 - Fibromyalgia (ICD-10) Surgical History History of vein stripping ?Z98.890 - Other specified postprocedural states (ICD-10) H/O gastric sleeve ?Z90.3 - Acquired absence of stomach [part of] (ICD-10) Hx of cholecystectomy ?Z90.49 - Acquired absence of other specified parts of digestive tract (ICD- 10) Meds Home Medications and Allergies Home Medications ?Medication ?Instructions ?Recorded ?Confirmed ?Type atorvastatin 10 mg tablet 10 mg PO QAM 01/11/24 01/13/24 History cetirizine 10 mg tablet 10 mg PO DAILY 01/11/24 01/13/24 History gabapentin 300 mg capsule 300 mg PO BID 01/11/24 01/13/24 History levothyroxine 50 mcg tablet 50 mcg PO QAM 01/11/24 01/13/24 History lisinopril 2.5 mg tablet 2.5 mg PO DAILY 01/11/24 01/13/24 History minocycline 100 mg capsule 100 mg PO QPM 01/11/24 01/13/24 History omeprazole 20 mg capsule,delayed 20 mg PO DAILY 01/11/24 01/13/24 History release prednisone 20 mg tablet 20 mg PO DAILY 01/11/24 01/13/24 History ropinirole 0.25 mg tablet 0.25 mg PO QPM 01/11/24 01/13/24 History semaglutide 1 mg/dose (4 mg/3 mL) 1 mg subcut QWEEK 01/11/24 01/13/24 History subcutaneous pen injector (Ozempic) sertraline 100 mg tablet 200 mg PO QAM 01/11/24 01/13/24 History tizanidine 4 mg tablet 8 mg PO DAILY 01/11/24 01/13/24 History Allergies Allergy/AdvReac Type Severity Reaction Status Date / Time No Known Drug Allergies Allergy Verified 01/11/24 21:40 Exam Narrative Exam Narrative: Psych-alert and oriented x 3.? Attentive and appropriate, constitutionally normal, displays normal mood and affect per situation.? There are no obvious deficits in memory, reasoning, or intellect.? Skin-no obvious rashes, bruising, or erythema noted to the patient's area of pain.? Extremities-upper extremities are warm with minimal edema and palpable pulses. Cervical- tenderness to palpation noted in the cervical spine and paraspinal musculature.?Multiple trigger points expressed on palpation. positive spurlings Pain is elicited with flexion, extension, and lateral rotation of the cervical spine.? Range of motion is diminished due to pain. Facet loading maneuvers are positive.? Strength-unremarkable and within normal limits with the exception to the right biceps, triceps.? Sensory-no notable sensory deficits in the bilateral upper extremities to touch or pinprick with the exception to decreased sensation to the right C4, 5, 6 dermatomal distribution.? Coordination remains intact.? Gait remains non-antalgic. Constitutional Documenting provider has reviewed patient's vital signs: yes Common normals: no apparent distress, oriented x3, healthy appearing, alert and well nourished General appearance: cooperative HENMT Common normals: normocephalic, hearing grossly normal bilaterally and moist oral mucous membranes Head and scalp: normocephalic Eye Common normals: PERRL Pupil: PERRL Chest Common normals: inspection of chest normal Respiratory Common normals: normal respiratory effort, no retractions and no use of accessory muscles Neuro Common normals: oriented x3, CN's II-XII intact bilaterally, moves all extremities, no focal motor deficits, no sensory deficits noted and deep tendon reflexes 2+ bilaterally Sensorium/orientation: alert Motor exam: no movement abnormalities noted and strength abnormal Psych Common normals: mental status grossly normal, thought process normal, cooperative, affect normal, speech normal and activity/motor behavior normal Speech: normal speech Thought process: normal thought process Results Additional Findings Additional findings: If on a controlled substance or opioids, I have checked an [place] report on this patient and there are no aberrancies noted in the prescribing history.??If on a controlled substance or opioid a drug screen was completed and reviewed within the last year, and if there has not been a drug screen completed we ordered one today to monitor higher risk, state monitored pain medication use. As part of providing excellent, safe, comprehensive care, the following was completed at our patient's visit: 1. A medication reconciliation and review to ensure accurate knowledge of current/active medications, including asking our patients to inform us about any [id number] medications or herbal remedies/nutritional supplements/alternative remedies. 2. A review to specifically ensure our patients have had annual screening for screening for depression, screening for tobacco use, and screening for unhealthy alcohol use. For concerning screenings had a discussion with the patient, provided patient education, and recommended follow-up with primary care provider when appropriate. If patient noted with a risk of falling, they received educati on on strength, gait, and balance training to prevent future risk of falling. Assessment and Plan Assessment and Plan (1) Cervical stenosis of spinal canal: (2) Cervical radiculopathy: (3) Myofascial pain: (4) Right shoulder pain: Qualifiers: Chronicity: chronic Qualified Code(s): M25.511 - Pain in right shoulder; G89.29 - Other chronic pain Plan cervical MRI reviewed with patient right C4-5 C5-6 TFESI under fluoroscopy for cervical radiculopathy, cervical stenosis, chronic neck pain unresponsive to PT/HEP and conservative medications greater than 6 weeks f/u 2 weeks after ABI
== END 2024-02-02 14:41 | disposition home or self-care (01) ==
LOC: PM 14:41
PROVIDERS: PCP Nurse Practitioner; Visit Provider Nurse Practitioner
DX: M48.062 Spinal stenosis, lumbar region with neurogenic claudication (principal); M54.12 Radiculopathy, cervical region; M79.18 Myalgia, other site; M25.511 Pain in right shoulder; G89.29 Other chronic pain
CPT/HCPCS: G0463

== ENCOUNTER 2024-02-28 08:51 | Day surgery (SDC) | payer BC, MEDICAID, SELFPAY ==
[2024-02-28 09:40] VITALS: BP 114/79; PULSE 85; TEMP 36.2; O2SAT 99
[2024-02-28 10:13] LABS: HCG Quantitative 2 mIU/mL
[2024-02-28 10:14] LABS: HCG Qualitative POSITIVE (NEGATIVE)
--- NOTE | 2024-02-28 10:38 | PC.NURSE ---
Discussed quantitative preg result with Dr. Rios Sherman per Dr. Bergeron request. Ok to move forward with procedure with result being less than 5.
[2024-02-28 10:48] VITALS: BP 100/57; BP 101/57; PULSE 83; PULSE 86; O2SAT 93; O2SAT 96
[2024-02-28] MEDS: 0.9 % SODIUM CHLORIDE 10 ML SYRINGE - SALINE FLUSH INJ (10:48)
[2024-02-28] MEDS: DEXAMETHASONE SOD PHOS 10 MG/ML VIAL INJ (10:49)
[2024-02-28] MEDS: IOHEXOL 240 MG/ML - 10 ML VIAL INJ (10:49)
[2024-02-28] MEDS: BUPIVACAINE HCL 0.25% PF 25 MG/10 ML VIAL INJ (10:49)
[2024-02-28] MEDS: LIDOCAINE HCL 2% PF 100 MG/5 ML VIAL INJ (10:49)
--- NOTE | 2024-02-28 10:53 | P.ON_ITS ---
Date of procedure: 02/28/24 Pre-op diagnosis: M54.12 Post-op diagnosis: same as pre-op Procedure: Procedure: Right C4-5, 5-6 transforaminal epidural steroid injection Medications: Bupivacaine 0.25% 1cc, lidocaine 2% 1cc, dexamethasone 10mg The patient was seen and examined in the preoperative holding area.? Informed consent was obtained and placed on the chart.? Patient was brought to the medical procedure unit and placed in the prone position where a timeout was completed verifying the correct patient, procedure site, position, and planned special equipment using sterile aseptic technique.? Under direct fluoroscopic visualization a 25-gauge Quincke tipped spinal needle was advanced to the designated neural foramen where contrast dye was injected to show adequate spread.? The needle was inserted at level right C4-5. There was no evidence of vascular or adverse uptake.? Epidural spread was appreciated.? The above- mentioned injectate was then placed in a 1.5 mL aliquot preceded by negative aspiration.? The needle was removed. The needle was inserted and the procedure repeated at level right C5-6.? The surgery site was covered.? Patient was taken to the postprocedural recovery area and monitored for an appropriate length of time before found suitable for discharge in the accompaniment of a responsible adult. Anesthesia: Local Surgeon: Montana Bergeron Pathology: none sent Condition: stable Disposition: no change
== END 2024-02-28 10:55 | disposition home or self-care (01) ==
LOC: SURGOUT 08:52
PROVIDERS: PCP Nurse Practitioner; Visit Provider Anesthesiology
DX: M54.12 Radiculopathy, cervical region (principal)
CPT/HCPCS: 36415; 64479; 64480; 84702; 84703; J1100; Q9966

== ENCOUNTER 2024-03-08 08:41 | Outpatient (OUT) | payer BC, MEDICAID, SELFPAY ==
--- NOTE | 2024-03-08 08:42 | P.CN_ITS ---
Consult Note: HPI Data of Consult Patient: known to practice within the last 3 years Consult date: 01/17/24 Requesting Physician: Tegan Grubbs NP Primary Care Provider: Halima Moncada NP Consult Narrative Reason for consult: f/u Narrative: 48yof who presents for assessment of chronic neck and right shoulder pain. Cervical CT consistent with mulitlevel spondylosis, though no acute fracture seen. cervical MRI consistent with central canal stenosis and multilevel foraminal stenosis. In past 3 months, has undergone >6 weeks of physical therapy, chiropractor, home exercises, stretches, oral steroids, NSAIDs, all without benefit. Uses gabapentin, norco, tizanidine. denies adverse med side effects. NNCP at our office due to marijuana use. Recently underwent right C4-5 C5-6 TFESI with >80% improvement ongoing. Mild right trapezius/posterior shoulder pain. Pain 2/10 increasing to 4/10 with lifting and periods of activity. VANNESSA previously 68%, now 12%. cc:: CC: Tegan Grubbs NP Review of Systems ROS Status of ROS 10 or more systems reviewed and unremark able except as noted in history and below Musculoskeletal Reports: neck pain and extremity pain [facility] Medical History (Updated 01/17/24 @ 13:05 by Montana Bergeron MD) Varicose vein of leg ?I83.90 - Asymptomatic varicose veins of unspecified lower extremity (ICD-10) Diabetes ?E11.9 - Type 2 diabetes mellitus without complications (ICD-10) PCOS (polycystic ovarian syndrome) ?E28.2 - Polycystic ovarian syndrome (ICD-10) Migraine ?G43.909 - Migraine, unspecified, not intractable, without status migrainosus (ICD-10) Hyperlipidemia ?E78.5 - Hyperlipidemia, unspecified (ICD-10) Hypothyroid ?E03.9 - Hypothyroidism, unspecified (ICD-10) HTN (hypertension) ?I10 - Essential (primary) hypertension (ICD-10) History of gastroesophageal reflux (GERD) ?Z87.19 - Personal history of other diseases of the digestive system (ICD-10) 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, unspecified (ICD-10) Depression ?F32.A - Depression, unspecified (ICD-10) Chronic sinusitis ?J32.9 - Chronic sinusitis, unspecified (ICD-10) Chronic fatigue syndrome with fibromyalgia ?G93.32 - Myalgic encephalomyelitis/chronic fatigue syndrome (ICD-10) ?M79.7 - Fibromyalgia (ICD-10) Surgical History History of vein stripping ?Z98.890 - Other specified postprocedural states (ICD-10) H/O gastric sleeve ?Z90.3 - Acquired absence of stomach [part of] (ICD-10) Hx of cholecystectomy ?Z90.49 - Acquired absence of other specified parts of digestive tract (ICD- 10) Meds Home Medications and Allergies Home Medications ?Medication ?Instructions ?Recorded ?Confirmed ?Type atorvastatin 10 mg tablet 10 mg PO QAM 01/11/24 02/28/24 History cetirizine 10 mg tablet 10 mg PO DAILY 01/11/24 02/28/24 History gabapentin 300 mg capsule 300 mg PO BID 01/11/24 02/28/24 History levothyroxine 50 mcg tablet 50 mcg PO QAM 01/11/24 02/28/24 History lisinopril 2.5 mg tablet 2.5 mg PO DAILY 01/11/24 02/28/24 History minocycline 100 mg capsule 100 mg PO QPM 01/11/24 02/28/24 History omeprazole 20 mg capsule,delayed 20 mg PO DAILY 01/11/24 02/28/24 History release prednisone 20 mg tablet 20 mg PO DAILY 01/11/24 02/28/24 History ropinirole 0.25 mg tablet 0.25 mg PO QPM 01/11/24 02/28/24 History semaglutide 1 mg/dose (4 mg/3 mL) 1 mg subcut QWEEK 01/11/24 02/28/24 History subcutaneous pen injector (Ozempic) sertraline 100 mg tablet 200 mg PO QAM 01/11/24 02/28/24 History tizanidine 4 mg tablet 8 mg PO DAILY 01/11/24 02/28/24 History Allergies Allergy/AdvReac Type Severity Reaction Status Date / Time No Known Drug Allergies Allergy Verified 02/28/24 09:38 Exam Constitutional Documenting provider has reviewed patient's vital signs: yes Common normals: no apparent distress, oriented x3, healthy appearing, alert and well nourished General appearance: cooperative HENMN Common normals: normocephalic, hearing grossly normal bilaterally and moist oral mucous membranes Head and scalp: normocephalic Eye Common normals: PERRL Pupil: PERRL Neck & C-Spine Common normals: full ROM General: normal visual inspection Cervical spine: cervical ROM normal and trapezius muscle tenderness Other: negative spurlings strength in BUE 5/5 sensation intact BUE Chest Common normals: inspection of chest normal Respiratory Common normals: normal respiratory effort, no retractions and no use of accessory muscles Neuro Common normals: oriented x3, CN's II-XII intact bilaterally, moves all extremities, no focal motor deficits, no sensory deficits noted and deep tendon reflexes 2+ bilaterally Sensorium/orientation: alert Motor exam: strength 5/5 throughout and no movement abnormalities noted Psych Common normals: mental status grossly normal, thought process normal, cooperative, affect normal, speech normal and activity/motor behavior normal Speech: normal speech Thought process: normal thought process Results Imaging cervical ct: Attestation: I have reviewed the pertinent imaging results. Radiologist's impression: The cervical vertebral bodies maintain normal height and alignment. There is no fracture or dislocation. The prevertebral soft tissues and predental space are normal. The facet joints are aligned bilaterally. The atlantooccipital articulation is normal bilaterally. There is multilevel degenerative disc disease of the cervical spine. Additional Findings Additional findings: If on a controlled substance or opioids, I have checked an [place] report on this patient and there are no aberrancies noted in the prescribing history.??If on a controlled substance or opioid a drug screen was completed and reviewed within the last year, and if there has not been a drug screen completed we ordered one today to monitor higher risk, state monitored pain medication use. As part of providing excellent, safe, comprehensive care, the following was completed at our patient's visit: 1. A medication reconciliation and review to ensure accurate knowledge of current/active medications, including asking our patients to inform us about any [id number] medications or herbal remedies/nutritional supplements/alternative remedies. 2. A review to specifically ensure our patients have had annual screening for screening for depression, screening for tobacco use, and screening for unhealthy alcohol use. For concerning screenings had a discussion with the patient, provided patient education, and recommended follow-up with primary care provider when appropriate. If patient noted with a risk of falling, they received education on strength, gait, and balance training to prevent future risk of falling. Assessment and Plan Assessment and Plan (1) Cervical stenosis of spinal canal: (2) Cervical radiculopathy: (3) Myofascial pain: (4) Right shoulder pain: Qualifiers: Chronicity: chronic Qualified Code(s): M25.511 - Pain in right shoulder; G89.29 - Other chronic pain Plan continue current medications, encouraged daily stretching to improve right trapezius pain discussed multifactorial pain and expectation of cervical ABI is to improve radicular symptoms, pain, and functional ability greater than 50% for 3 months f/u 3 months, sooner if needed
--- OUTSIDE RECORDS SUMMARY | 2024-03-08 08:54 | XMS_ITS | CCD ---
Author Organization [facility] Care Team Providers Care Microbiological Lab Technician Name Role Phone Kaylie Echeverria Unavailable Mona Morin Unavailable NO FAMILY, PHYSICIAN Primary Care Provider Unava ilCHRISTIANO Lazaro Attending Provider MIKEL MONA Primary Care Unavailable MISC, DR ELIAS Attending Unavailable MISC, DR ELIAS Admitting Unavailable AICHHOLZ, EXECUTIVE HOUSEKEEPER ELSI Consulting Unavailable MIKEL MONA Consulting Unavailable MIKEL, MONA Primary Care Unavailable MIKEL, MONA Admitting Unavailable MIKEL, MONA Attending Unavailable MIKEL, MONA Primary Care Unavailable MIKEL, MONA Admitting Unavailable MIKEL, MONA Attending Unavailable MIKEL MONA Consulting Unavailable Priyanka Jones Unavailable TD BERUMEN Attending Unavailable MIKLE, MONA Referring Unavailable MIKEL, MONA Primary Care Unavailable Mikel ACCOUNT RECEIVABLE ASSOCIATE-BURRING MACHINE OPERATOR, Mona Primary Care Provide r ELSI SUAREZ Attending Unavailable ELSI SUAREZ Attending Unavailable ELSI SUAREZ Attending Unavailable KRUNAL MCARTHUR Attending Unavailable ELSI SUAREZ Attending Unavailable MONICA SUAREZA Attending Unavailable Elyssa MCBRIDE, [place] Mosqueda Attending Unavailable Elyssa MCBRIDE, [place] Mosqueda Attending Unavailable Allergies Allergy Classification Reported Allergen(s) Allergy Type Date of Onset Reaction(s) Facility (5 sources) Cephalexin Drug Allergy rash [facility] Other (12 sources) Cephalexin Drug Allergy rash [facility] Other (1 source) Sulfamethoxazole / Trimethoprim Drug Allergy 3 [facility] Repository Medications Current Medications Medication Drug Class(es) Dates Sig (Normalized) Sig (Original) [id number] 200 actuat albuterol 0.09 mg/actuat metered dose [...] oral solution (2 sources) alpha-Adrenergic Agonist, Uncompetitive H-sxevaq-M-aspartate Receptor Antagonist, Sigma-1 Agonist Start: 08-31-2021 take [...] pyogenes Org specific cx Ql (Throat) Negative [facility] Other Quick Strep [facility] Other INSULINon 01-26-2023 Insulin 21.3 uIU/mL Normal 2.6-24.9 [facility] Comment on above: Performed By: #### I NSULIN #### [facility] [address] [place] [address] Dr. Yvan Manzano CORTISOLon 01-23-2023 Cortisol 11.2 ug/dL Normal 6.2-19.4 [facility] Comment on above: Result Comment: [place] Note: The reference interval and flagging for this test is for an AM collection. If this is a PM collection please use: Cortisol PM: 2.3-11.9 [facility] also offers: 844344: Cortisol- AM 002660: Cortisol- PM Performed By: #### C BC #### [facility] [address] [place] [address] Dr. Yvan Manzano CBC AUTO DIFFon 01-22-2023 BASO # 0.1 103/ul Normal 0.0-0.1 [facility] Comment on above: Performed By: #### C BC #### [facility] [address] [place] [address] Dr. Yvan Manzano Basophils/100 WBC (Bld) 0.9 % Normal 0.2-2.0 [facility] Comment on above: Performed By: #### C BC #### [facility] [address] [place] [address] Dr. Yvan Manzano EO # 0.3 103/ul Normal 0.0-0.7 [facility] Comment on above: Performed By: #### C BC #### [facility] [address] [place] [address] Dr. Yvan Manzano Eosinophils/100 WBC (Bld) 5.7 % Normal 0.9-7.0 [facility] Comment on above: Performed By: #### C BC #### [facility] [address] [place] [address] Dr. Yvan Manzano Erythrocyte distribution width (RBC) [Ratio] 14.6 % Normal 11.0-15.0 [facility] Comment on above: Performed By: #### C BC #### [facility] [address] [place] [address] Dr. Yvan Manzano Hematocrit (Bld) [Volume fraction] 36.8 % Normal 36.0-48.0 [facility] Comment on above: Performed By: #### C BC #### [facility] [address] [place] [address] Dr. Yvan Manzano Hemoglobin (Bld) [Mass/Vol] 11.4 g/dL Critically low 12.0-16.0 [facility] Comment on above: Performed By: #### C BC #### [facility] [address] [place] [address] Dr. Yvan Manzano IG # 0.02 10e3/ul Normal 0.00-0.03 [facility] Comment on above: Performed By: #### C BC #### [facility] [address] [place] [address] Dr. Yvan Manzano IG % 0.3 % Normal 0.0-0.5 [facility] Comment on above: Performed By: #### C BC #### [facility] [address] [place] [address] Dr. Yvan Manzano LYMPH # 1.5 103/ul Normal 1.2-3.8 [facility] Comment on above: Performed By: #### C BC #### [facility] [address] [place] [address] Dr. Yvan Manzano Lymphocytes/100 WBC (Bld) 25.3 % Normal 20.5-60.0 [facility] Comment on above: Performed By: #### C BC #### [facility] [address] [place] [address] Dr. Yvan Manzano MANUAL DIFF REQ NO Normal [facility] Comment on above: Performed By: #### C BC #### [facility] [address] [place] [address] Dr. Yvan Manzano MCH (RBC) [Entitic mass] 25.2 pg Critically low 26.7-34.0 [facility] Comment on above: Performed By: #### C BC #### [facility] [address] [place] [address] Dr. Yvan Manzano MCHC (RBC) [Mass/Vol] 31.0 g/dL Normal 29.9-35.2 [facility] Comment on above: Performed By: #### C BC #### [facility] [address] [address] [address] Yvan Manzano MCV (RBC) [Entitic vol] 81.4 fL Normal 81.0-99.0 [facility] Comment on above: Performed By: #### C BC #### [facility] [address] [place] [address] Dr. Yvan Manzano MONO # 0.4 103/ul Normal 0.3-0.8 [facility] Comment on above: Performed By: #### C BC #### [facility] [address] [place] [address] Dr. Yvan Manzano Monocytes/100 WBC (Bld) 7.7 % Normal 1.7-12.0 [facility] Comment on above: Performed By: #### C BC #### [facility] [address] [place] [address] Dr. Yvan Manzano NEUT # 3.5 103/ul Normal 1.4-6.5 [facility] Comment on above: Performed By: #### C BC #### [facility] [address] [place] [address] Dr. Yvan Manzano Neutrophils/100 WBC (Bld) 60.1 % Normal 43.0-75.0 [facility] Comment on above: Performed By: #### C BC #### [facility] [address] [address] [address] Yvan Manzano Platelet mean volume (Bld) [Entitic vol] 8.8 fL Critically low 9.5-13.5 [facility] Comment on above: Performed By: #### C BC #### [facility] [address] [place] [address] Dr. Yvan Manzano PLT 347 103/ul Normal 150-450 [facility] Comment on above: Performed By: #### C BC #### [facility] [address] [place] [address] Dr. Yvan Manzano RBC 4.52 106/ul Normal 4.20-5.40 [facility] Comment on above: Performed By: #### C BC #### [facility] [address] [place] [address] Dr. Yvan Manzano WBC 5.7 103/ul Normal 4.0-11.0 [facility] Comment on above: Performed By: #### C BC #### [facility] [address] [place] [address] Dr. Yvan Manzano FREE T4on 01-22-2023 Free T4 [Mass/Vol] 0.84 ng/dL Normal 0.76-1.46 [facility] Comment on above: Performed By: #### F T4 #### [facility] [address] [place] [address] Dr. Yvan Manzano LIPID PROFILEon 01-22-2023 CHOL-HDL RATIO NORM SEE BELOW Normal [facility] Comment on above: Result Comment: 3.3 - 4.4 LOW RISK 4.4 - 7.1 AVERAGE RISK 7.1 - 11.0 MODERATE RISK >11.0 HIGH RISK Performed By: #### T SH, LIPID #### [facility] [address] [place] [address] Dr. Yvan Manzano Cholesterol [Mass/Vol] 264 mg/dL Critically high <=200 [facility] Comment on above: Performed By: #### T SH, LIPID #### [facility] [address] [place] [address] Dr. Yvan Manzano Cholesterol in HDL [Mass/Vol] 52 mg/dL Normal 40-60 [facility] Comment on above: Performed By: #### T SH, LIPID #### [facility] [address] [place] [address] Dr. Yvan Manzano Cholesterol in LDL [Mass/Vol] 173.6 mg/dL Normal [facility] Comment on above: Performed By: #### T SH, LIPID #### [facility] [address] [place] [address] Dr. Yvan Manzano Cholesterol.total/Ch olesterol in HDL [Mass ratio] 5.1 {ratio} Normal [facility] Comment on above: Performed By: #### T SH, LIPID #### [facility] [address] [address] [address] Yvan Manzano HDL NORMAL > or = 60 mg/dl - LOW CARDIOVASCULAR RISK <40 mg/dl - HIGH CARDIOVASCULAR RISK Normal [facility] Comment on above: Performed By: #### T SH, LIPID #### [facility] [address] [address] [address] Yvan Manzano LDL CALC NORMAL SEE BELOW Normal [facility] Comment on above: Result Comment: <100 mg/dl OPTIMAL 100 - 129 mg/dl NEAR OR ABOVE OPTIMAL 130 - 159 mg/dl BORDERLINE HIGH 160 - 189 mg/dl HIGH >190 mg/dl VERY HIGH Performed By: #### T SH, LIPID #### [facility] [address] [place] [address] Dr. Yvan Manzano Triglyceride [Mass/Vol] 192 mg/dL Critically high <=150 [facility] Comment on above: Performed By: #### T SH, LIPID #### [facility] [address] [place] [address] Dr. Yvan Manzano VLDL CALC 38.4 mg/dL Normal [facility] Comment on above: Performed By: #### T SH, LIPID #### [facility] [address] [address] [address] Yvan Manzano TSHon 01-22-2023 TSH 5.749 uIU/mL Critically high 0.358-3.740 [facility] Comment on above: Performed By: #### T SH, LIPID #### [facility] [address] [place] [address] Dr. Yvan Manzano GLYCOHEMOGLOBIN A1Con 2022 ADA RECOMMENDATION SEE BELOW Normal [facility] Comment on above: Result Comment: ADA RECOMMENDED LIMIT 4.0 - 6.0 ADA THERAPEUTIC TARGET < 7.0 ACTION SUGGESTED > 7.0 Performed By: #### A 1C #### [facility] [address] [place] [address] Dr. Yvan Manzano Glucose [Mass/Vol] 137 mg/dL Normal [facility] Comment on above: Performed By: #### A 1C #### [facility] [address] [place] [address] Dr. Yvan Manzano HbA1c (Bld) [Mass fraction] 6.4 % Critically high 4.5-6.2 [facility] Comment on above: Performed By: #### A 1C #### [facility] [address] [place] [address] Dr. Yvan Manzano PROF 14(COMP METB)on 023 Albumin [Mass/Vol] 3.4 g/dL Normal 3.4-5.0 [facility] Comment on above: Performed By: #### C MP #### [facility] [address] [place] [address] Dr. Yvan Manzano Albumin/Globulin [Mass ratio] 0.9 {ratio} Normal [facility] Comment on above: Performed By: #### C MP #### [facility] [address] [place] [address] Dr. Yvan Manzano ALP [Catalytic activity/Vol] 74 U/L Normal 46-116 [facility] Comment on above: Performed By: #### C MP #### [facility] [address] [place] [address] Dr. Yvan Manzano ALT [Catalytic activity/Vol] 25 U/L Normal 14-59 [facility] Comment on above: Performed By: #### C MP #### [facility] [address] [place] [address] Dr. Yvan Manzano Anion gap [Moles/Vol] 9.4 mmol/L Normal [facility] Comment on above: Performed By: #### C MP #### [facility] [address] [place] [address] Dr. Yvan Manzano AST [Catalytic activity/Vol] 17 U/L Normal 15-37 [facility] Comment on above: Performed By: #### C MP #### [facility] [address] [place] [address] Dr. Yvan Manzano Bilirubin [Mass/Vol] 0.1 mg/dL Critically low 0.2-1.0 [facility] Comment on above: Performed By: #### C MP #### [facility] [address] [address] [address] Yvan Manzano Calcium [Mass/Vol] 9.2 mg/dL Normal 8.5-10.1 [facility] Comment on above: Performed By: #### C MP #### [facility] [address] [address] [address] Yvan Manzano Chloride [Moles/Vol] 101 mmol/L Normal 98-107 [facility] Comment on above: Performed By: #### C MP #### [facility] [address] [address] [address] Yvan Manzano CO2 [Moles/Vol] 30.4 mmol/L Normal 21.0-32.0 [facility] Comment on above: Performed By: #### C MP #### [facility] [address] [place] [address] Dr. Yvan Manzano Creatinine [Mass/Vol] 0.71 mg/dL Normal 0.55-1.02 [facility] Comment on above: Performed By: #### C MP #### [facility] [address] [place] [address] Dr. Yvan Manzano EGFR-AF MOROCCAN >60 Normal >=60 [facility] Comment on above: Performed By: #### C MP #### [facility] [address] [place] [address] Dr. Yvan Manzano EGFR-NON AF MOROCCAN >60 Normal >=60 [facility] Comment on above: Performed By: #### C MP #### [facility] [address] [place] [address] Dr. Yvan Manzano Globulin (S) [Mass/Vol] 4.0 g/dL Normal [facility] Comment on above: Performed By: #### C MP #### [facility] [address] [place] [address] Dr. Yvan Manzano Glucose [Mass/Vol] 138 mg/dL Critically high 74-106 [facility] Comment on above: Performed By: #### C MP #### [facility] [address] [place] [address] Dr. Yvan Manzano Potassium [Moles/Vol] 3.8 mmol/L Normal 3.5-5.1 [facility] Comment on above: Performed By: #### C MP #### [facility] [address] [address] [address] Yvan Manzano Protein [Mass/Vol] 7.4 g/dL Normal 6.4-8.2 [facility] Comment on above: Performed By: #### C MP #### [facility] [address] [address] [address] Yvan Manzano Sodium [Moles/Vol] 137 mmol/L Normal 136-145 [facility] Comment on above: Performed By: #### C MP #### [facility] [address] [address] [address] Yvan Manzano Urea nitrogen [Mass/Vol] 13.0 mg/dL Normal 7.0-18.0 [facility] Comment on above: Performed By: #### C MP #### [facility] [address] [address] [address] Yvan Manzano Urea nitrogen/Creatinine [Mass ratio] 18.3 mg/mg Normal [facility] Comment on above: Performed By: #### C MP #### [facility] [address] [place] [address] Dr. Yvan Manzano LIPID PROFILEon 03-31-2022 CHOL-HDL RATIO NORM SEE BELOW Normal [facility] Comment on above: Result Comment: 3.3 - 4.4 LOW RISK 4.4 - 7.1 AVERAGE RISK 7.1 - 11.0 MODERATE RISK >11.0 HIGH RISK Performed By: #### C MP, LIPID #### [facility] [address] [address] [address] Yvan Manzano Cholesterol [Mass/Vol] 229 mg/dL Critically high <=200 [facility] Comment on above: Performed By: #### C MP, LIPID #### [facility] [address] [address] [address] Yvan Manzano Cholesterol in HDL [Mass/Vol] 51 mg/dL Normal 40-60 [facility] Comment on above: Performed By: #### C MP, LIPID #### [facility] [address] [address] [address] Yvan Manzano Cholesterol in LDL [Mass/Vol] 150.4 mg/dL Normal [facility] Comment on above: Performed By: #### C MP, LIPID #### [facility] [address] [address] [address] Yvan Mnazano Cholesterol.total/Ch olesterol in HDL [Mass ratio] 4.5 {ratio} Normal [facility] Comment on above: Performed By: #### C MP, LIPID #### [facility] [address] [place] [address] Dr. Yvan Manzano HDL NORMAL > or = 60 mg/dl - LOW CARDIOVASCULAR RISK <40 mg/dl - HIGH CARDIOVASCULAR RISK Normal [facility] Comment on above: Performed By: #### C MP, LIPID #### [facility] [address] [place] [address] Dr. Yvan Manzano LDL CALC NORMAL SEE BELOW Normal [facility] Comment on above: Result Comment: <100 mg/dl OPTIMAL 100 - 129 mg/dl NEAR OR ABOVE OPTIMAL 130 - 159 mg/dl BORDERLINE HIGH 160 - 189 mg/dl HIGH >190 mg/dl VERY HIGH Performed By: #### C MP, LIPID #### [facility] [address] [place] [address] Dr. Yvan Manzano Triglyceride [Mass/Vol] 138 mg/dL Normal <=150 [facility] Comment on above: Performed By: #### C MP, LIPID #### [facility] [address] [place] [address] Dr. Yvan Manzano VLDL CALC 27.6 mg/dL Normal [facility] Comment on above: Performed By: #### C MP, LIPID #### [facility] [address] [place] [address] Dr. Yvan Manzano MICROALB CREAT RATIO RANDOMo n 03-31-2022 mALB 1.4 mg/L Normal <=30.0 [facility] Comment on above: Performed By: #### M CRR #### [facility] [address] [place] [address] Dr. Yvan CARABALLO CR RATIO 6.0 mg/g Normal 0.0-29.9 [facility] Comment on above: Performed By: #### M CRR #### [facility] [address] [address] [address] Yvan Manzano MALB CR RATIO RANGE SEE BELOW Normal [facility] Comment on above: Result Comment: NO M ICROALBUMINURIA 0-29 MG/G CLINICAL MICROALBUMINURIA 30-300 MG/G MACROALBUMINURIA >300 MG/G Performed By: #### M CRR #### [facility] [address] [address] [address] Yvan Manzano URINE CREAT 232.88 mg/dL Normal 20.00-300.00 [facility] Comment on above: Performed By: #### M CRR #### [facility] [address] [place] [address] Dr. Yvan Manzano PROF 14(COMP METB)on 022 Albumin [Mass/Vol] 3.6 g/dL Normal 3.4-5.0 [facility] Comment on above: Performed By: #### C MP, LIPID #### [facility] [address] [place] [address] Dr. Yvan Manzano Albumin/Globulin [Mass ratio] 0.9 {ratio} Normal [facility] Comment on above: Performed By: #### C MP, LIPID #### [facility] [address] [place] [address] Dr. Yvan Manzano ALP [Catalytic activity/Vol] 63 U/L Normal 46-116 [facility] Comment on above: Performed By: #### C MP, LIPID #### [facility] [address] [place] [address] Dr. Yvan Manzano ALT [Catalytic activity/Vol] 33 U/L Normal 14-59 [facility] Comment on above: Performed By: #### C MP, LIPID #### [facility] [address] [address] [address] Yvan Manzano Anion gap [Moles/Vol] 11.7 mmol/L Normal [facility] Comment on above: Performed By: #### C MP, LIPID #### [facility] [address] [address] [address] Yvan Manzano AST [Catalytic activity/Vol] 23 U/L Normal 15-37 [facility] Comment on above: Performed By: #### C MP, LIPID #### [facility] [address] [address] [address] Yvan Manzano Bilirubin [Mass/Vol] 0.2 mg/dL Normal 0.2-1.0 [facility] Comment on above: Performed By: #### C MP, LIPID #### [facility] [address] [address] [address] Yvan Manzano Calcium [Mass/Vol] 9.5 mg/dL Normal 8.5-10.1 [facility] Comment on above: Performed By: #### C MP, LIPID #### [facility] [address] [place] [address] Dr. Yvan Manzano Chloride [Moles/Vol] 102 mmol/L Normal 98-107 [facility] Comment on above: Performed By: #### C MP, LIPID #### [facility] [address] [address] [address] Yvan Manzano CO2 [Moles/Vol] 28.0 mmol/L Normal 21.0-32.0 [facility] Comment on above: Performed By: #### C MP, LIPID #### [facility] [address] [address] [address] Yvan Manzano Creatinine [Mass/Vol] 0.71 mg/dL Normal 0.55-1.02 [facility] Comment on above: Performed By: #### C MP, LIPID #### [facility] [address] [place] [address] Dr. Yvan Manzano EGFR-AF MOROCCAN >60 Normal >=60 [facility] Comment on above: Performed By: #### C MP, LIPID #### [facility] [address] [address] [address] Yvan Manzano EGFR-NON AF MOROCCAN >60 Normal >=60 [facility] Comment on above: Performed By: #### C MP, LIPID #### [facility] [address] [address] [address] Yvan Manzano Globulin (S) [Mass/Vol] 4.0 g/dL Normal [facility] Comment on above: Performed By: #### C MP, LIPID #### [facility] [address] [address] [address] Yvan Manzano Glucose [Mass/Vol] 87 mg/dL Normal 74-106 [facility] Comment on above: Performed By: #### C MP, LIPID #### [facility] [address] [address] [address] Yvan Manzano Potassium [Moles/Vol] 3.7 mmol/L Normal 3.5-5.1 [facility] Comment on above: Performed By: #### C MP, LIPID #### [facility] [address] [address] [address] Yvan Manzano Protein [Mass/Vol] 7.6 g/dL Normal 6.4-8.2 [facility] Comment on above: Performed By: #### C MP, LIPID #### [facility] [address] [address] [address] Yvan Manzano Sodium [Moles/Vol] 138 mmol/L Normal 136-145 [facility] Comment on above: Performed By: #### C MP, LIPID #### [facility] [address] [address] [address] Yvan Manzano Urea nitrogen [Mass/Vol] 14.0 mg/dL Normal 7.0-18.0 [facility] Comment on above: Performed By: #### C MP, LIPID #### [facility] [address] [address] [address] Yvan Manzano Urea nitrogen/Creatinine [Mass ratio] 19.7 mg/mg Normal [facility] Comment on above: Performed By: #### C MP, LIPID #### [facility] [address] [address] [address] Yvan Manzano XR hip RT min 2V(w/wo pelvis )*on 03-26-2022 XR hip RT min 2V(w/wo pelvis)* [facility] Main [address] [address] XRay Report Signed Patient: Tatiana Brewster MR#: [id number] : 1975 Acct:[id number] Age/Sex: 46 / F ADM Date: 03/26/22 [...] Michael Harper M.D.03/26/2022 3:38 PM Dictation Location: [place] [address] Transcribed By: [facility] 03/26/22 1538 Dictated By: Michael Harper DO 03/26/22 1534 Signed By: 03/26/22 1538 Normal [facility] XR sacrum coccyx min 2Von XR sacrum coccyx min 2V [address] [address] XRay Report Signed Patient: Tatiana Brewster MR#: [id number] : 1975 Acct:[id number] Age/Sex: 45 / F ADM Date: 09/29/21 [...] Laron Villegas M.D.09/29/2021 4:16 PM Dictation Location: [place] [address] Transcribed By: [facility] 09/29/211615 Dictated By: Laron Villegas II, MD 09/29/211612 Signed By: 09/29/211615 [facility] COVID Quick Testingon 2020 Result Negative [facility] Other Vital Signs Date Time Vital Sign Value Performing Clinician Facility 05-03-2023 09:05-0400 Body height 157.48 cm Priyanka Jones Other [facility] Other 05-03-2023 09:05-0400 Body mass index (BMI) [Ratio] 35.02 kg/m2 Priyanka Jones Other [facility] Other 05-03-2023 09:05-0400 Body temperature 97.5 [degF] Priyanka Jones Other [facility] Other 05-03-2023 09:05-0400 Body weight 86.86 kg Priyanka Jones Other [facility] Other 05-03-2023 09:05-0400 Diastolic blood pressure 76 mm[Hg] Priyanka Jones Other [facility] Other 05-03-2023 09:05-0400 Respiratory rate 18 /min Priyanka Jones Other [facility] Other 05-03-2023 09:05-0400 SaO2% (BldA) [Mass fraction] 100 % Priyanka Karen Other [facility] Other 05-03-2023 09:05-0400 Systolic blood pressure 117 mm[Hg] Priyanka Karen Other [facility] Other 11-17-2022 11:30-0500 Body height 157.48 cm Mona Yeungault Other [facility] Other 11-17-2022 11:30-0500 Body mass index (BMI) [Ratio] 35.3 kg/m2 Omna Mikel Other [facility] Other 11-17-2022 11:30-0500 Body temperature 98.7 [degF] Mona Yeungault Other [facility] Other 11-17-2022 11:30-0500 Body weight 87.54 kg Mona Yeungault Other [facility] Other 11-17-2022 11:30-0500 Respiratory rate 18 /min Mona Mikel Other [facility] Other 11-17-2022 11:30-0500 SaO2% (BldA) [Mass fraction] 98 % Mona Mikel Other [facility] Other 09-28-2022 16:30-0500 Body height 157.48 cm Mona Mikel Other [facility] Other 09-28-2022 16:30-0500 Body mass index (BMI) [Ratio] 35.3 kg/m2 Mona Morin Other [facility] Other 09-28-2022 16:30-0500 Body temperature 98 [degF] Mona Morin Other [facility] Other 09-28-2022 16:30-0500 Body weight 87.54 kg Mona Morin Other [facility] Other 09-28-2022 16:30-0500 Diastolic blood pressure 79 mm[Hg] Mona Morin Other [facility] Other 09-28-2022 16:30-0500 Respiratory rate 18 /min Mona Morin Other [facility] Other 09-28-2022 16:30-0500 SaO2% (BldA) [Mass fraction] 98 % Mona Morin Other [facility] Other 09-28-2022 16:30-0500 Systolic blood pressure 130 mm[Hg] Mona Morin Other [facility] Other 07-14-2022 15:00-0400 Body height 157.48 cm Mona Morin Other [facility] Other 07-14-2022 15:00-0400 Body mass index (BMI) [Ratio] 35.66 kg/m2 Mona Morin Other [facility] Other 07-14-2022 15:00-0400 Body weight 88.45 kg Mona Yeungault Other [facility] Other 07-14-2022 15:00-0400 Diastolic blood pressure 89 mm[Hg] Mona Morin Other [facility] Other 07-14-2022 15:00-0400 Respiratory rate 18 /min Mona Morin Other [facility] Other 07-14-2022 15:00-0400 SaO2% (BldA) [Mass fraction] 98 % Mona Morin Other [facility] Other 07-14-2022 15:00-0400 Systolic blood pressure 145 mm[Hg] Mona Morin Other [facility] Other 06-30-2022 12:00-0400 Body height 157.48 cm Mona Yeungault Other [facility] Other 06-30-2022 12:00-0400 Body mass index (BMI) [Ratio] 35.48 kg/m2 Mona Morin Other [facility] Other 06-30-2022 12:00-0400 Body temperature 97.7 [degF] Mona Morin Other [facility] Other 06-30-2022 12:00-0400 Body weight 88 kg Mona Morin Other [facility] Other 06-30-2022 12:00-0400 Diastolic blood pressure 87 mm[Hg] Mona Yeungault Other [facility] Other 06-30-2022 12:00-0400 Respiratory rate 18 /min Mona Yeungault Other [facility] Other 06-30-2022 12:00-0400 SaO2% (BldA) [Mass fraction] 97 % Mona Morin Other [facility] Other 06-30-2022 12:00-0400 Systolic blood pressure 136 mm[Hg] Mona Morin Other [facility] Other 02-03-2022 11:00-0400 Body height 157.48 cm Mona Morin Other [facility] Other 02-03-2022 11:00-0400 Body mass index (BMI) [Ratio] 35.84 kg/m2 Mona Morin Other [facility] Other 02-03-2022 11:00-0400 Body temperature 98.2 [degF] Mona Yeungault Other [facility] Other 02-03-2022 11:00-0400 Body weight 88.91 kg Mona Morin Other [facility] Other 02-03-2022 11:00-0400 Diastolic blood pressure 96 mm[Hg] Mona Yeungault Other [facility] Other 02-03-2022 11:00-0400 Respiratory rate 18 /min Mona Yeungault Other [facility] Other 02-03-2022 11:00-0400 SaO2% (BldA) [Mass fraction] 99 % Mona Yeungault Other [facility] Other 02-03-2022 11:00-0400 Systolic blood pressure 157 mm[Hg] Mona Morin Other [facility] Other 08-31-2021 10:00-0500 Body height 157.48 cm Kaylie Ginty Other [facility] Other 08-31-2021 10:00-0500 Body mass index (BMI) [Ratio] 35.66 kg/m2 Kaylie Ginty Other [facility] Other 08-31-2021 10:00-0500 Body temperature 98.7 [degF] Kaylie Ginty Other [facility] Other 08-31-2021 10:00-0500 Body weight 88.45 kg Kaylie Ginty Other [facility] Other 08-31-2021 10:00-0500 Respiratory rate 18 /min Kaylie Ginty Other [facility] Other 08-31-2021 10:00-0500 SaO2% (BldA) [Mass fraction] 95 % Kaylie Ginty Other [facility] Other Encounters Encounter Date Encounter Type Care Provider Facility Start: 02-28-2024 End: 02-28-2024 ambulatory Montana Bergeron MD [facility]: [facility] Start: 02-23-2024 End: 02-23-2024 ambulatory ELSI AICHHOLZ Not Available Start: 02-07-2024 End: 02-07-2024 ambulatory ELSI AICHHOLZ Not Available Start: 02-03-2024 End: 02-03-2024 ambulatory KRUNAL LYUBOV Not Available Start: 01-17-2024 End: 01-17-2024 ambulatory Montana Bergeron MD Facility: [facility] Start: 01-11-2024 End: 01-11-2024 ambulatory ELSI AICHHOLZ Not Available Start: 12-24-2023 [facility] Start: 11-04-2023 End: 11-04-2023 ambulatory TD BERUMEN [facility] Start: 10-26-2023 End: 10-26-2023 ambulatory ELSI AICHHOLZ Not Available Start: 09-13-2023 End: 09-13-2023 ambulatory ELSI AICHHOLZ Not Available Start: 05-03-2023 End: 05-03-2023 ambulatory Priyanka Jones Other [facility] Other Start: 05-03-2023 Office outpatient visit 15 minutes Priyanka Jones [facility] Start: 01-22-2023 End: 01-23-2023 ambulatory MONA MORIN Facility: Start: 11-23-2022 End: 11-23-2022 ambulatory Mona Morin Other [facility] Other Start: 11-23-2022 Telephone encounter Mona hyde [facility] Start: 11-20-2022 End: 11-20-2022 ambulatory Mona Morin Other [facility] Other Start: 11-20-2022 Encounter by juan Morin [facility] Start: 11-17-2022 End: 11-18-2022 ambulatory MONA MORIN [facility] Other Start: 11-17-2022 Office outpatient visit 15 minutes Mona Morin [facility] Start: 10-06-2022 End: 10-06-2022 ambulatory Mona Morin Other [facility] Other Start: 10-06-2022 Telephone encounter Mona hyde [facility] Start: 09-29-2022 End: 09-29-2022 ambulatory PHYSICIAN NO [facility] Work Phone: Start: 09-29-2022 End: 09-29-2022 Departed Referred PHYSICIAN NO [facility] [place] Work Phone: Start: 09-28-2022 End: 09-28-2022 ambulatory Mona Mikel Other [facility] Other Start: 09-28-2022 Office outpatient visit 15 minutes Mona Mikel [facility] Start: 09-14-2022 End: 09-14-2022 ambulatory Mona Mikel Other [facility] Other Start: 09-14-2022 Telephone encounter Mona Breaul t [facility] Start: 07-14-2022 End: 07-14-2022 ambulatory Mona Mikel Other [facility] Other Start: 07-14-2022 Office outpatient visit 15 minutes Mona Mikel [facility] Start: 06-30-2022 End: 06-30-2022 ambulatory Mona Mikel Other [facility] Other Start: 06-30-2022 Office outpatient visit 15 minutes Mona Mikel [facility] Start: 04-02-2022 End: 04-02-2022 ambulatory Mona Mikel Other [facility] Other Start: 04-02-2022 Telephone encounter Mona Breaul t [facility] Start: 03-31-2022 Telephone encounter Mona Breaul t [facility] Start: 03-31-2022 End: 04-01-2022 ambulatory MONA MIKEL [facility] Other Start: 02-03-2022 End: 02-03-2022 ambulatory Mona Morin Other [facility] Other Start: 02-03-2022 Office outpatient visit 15 minutes Mona Morin [facility] Start: 12-10-2021 End: 12-10-2021 ambulatory Mona Morin Other [facility] Other Start: 12-10-2021 Telephone encounter Mona Breaul t [facility] Start: 11-10-2021 End: 11-10-2021 ambulatory Mona Morin Other [facility] Other Start: 11-10-2021 Telephone encounter Monamonty Palmerl t [facility] Start: 09-03-2021 End: 09-03-2021 ambulatory Kaylie Ginty Other [facility] Other Start: 09-03-2021 Telephone encounter Kaylie Ginty [facility] Start: 08-31-2021 End: 08-31-2021 ambulatory Kaylie Ginty Other [facility] Other Start: 08-31-2021 Office outpatient visit 15 minutes Kaylie Ginty [facility] Procedures Date Procedure Procedure Detail Performing Clinician Start: 10-11-2017 Mammography Saeid hogue [employer] Start: 02-05-2017 Microscopic observat ion [Identifier] in Cervix by Cyto stain Saeid Gooden [facility] Plan of Treatment Date Care Activity Detail Author Start: 05-26-2024 Adult BMI Screening Adult BMI Screen ing [facility] Start: 05-26-2024 Tobacco Screening Tobacco Screening [facility] Start: 05-28-2023 Influenza vaccination Influenza Vacc ine [facility] Start: 09-29-2022 Aerobic Culture Aerobic Culture [facility] Start: 09-29-2022 Anaerobic Culture Anaerobic Culture [facility] Start: 09-29-2022 Microscopic observat ion [Identifier] in Unspecified specimen by Gram stain Gram Stain [facility] Start: 02-06-2020 Screening for malign ant neoplasm of cervix Pap Smear [facility] Start: 10-11-2018 Screening for malign ant neoplasm of breast Mammogram [facility] Start: 12-06-1995 DTaP,Tdap and Td Vaccines (1 - Tdap) DTaP,Tdap and Td Vaccines (1 - Tdap) [facility] Start: 1994 Adult BMI Follow Up Plan Adult BMI Follow Up Plan [facility] Start: 1988 Depression Screening Depression Scre ening [facility] Bacteria identified in Unspecified specimen by Aerobe culture [facility] Bacteria identified in Unspecified specimen by Anaerobe culture [facility] Immunizations Immunization Date Immunization Notes Care Provider [facility] ja[facility] 10-01-2020 influenza virus vacc ine, unspecified formulation Saeid Gooden [facility] Payers Date Payer Category Payer Medicaid [id number] 2022 Medicaid [facility]LY [facility] MEDICAID [facility] MEDICAID [id number] 2022-Present [address] [place] [address] [id number] 2017 Unknown [id number] 1976 Unknown [id number] 2.16.840.1.851518.3.579.2.5 93 1976 Unknown [id number] 2.16.840.1.512919.3.579.2.5 93 1976 Unknown [id number] 2.16.840.1.285451.3.579.2.5 93 1976 Unknown [id number] 2.16.840.1.902401.3.579.2.1 286 1976 Unknown [id number] 2.16.840.1.511119.3.579.2.1 259 1976 Unknown [id number] 2.16.840.1.979566.3.579.2.1 259 1976 Unknown [id number] 2.16.840.1.139634.3.579.2.1 259 1976 Unknown [id number] 2.16.840.1.856761.3.579.2.1 259 1976 Unknown [id number] 2.16.840.1.381762.3.579.2.1 259 1976 Unknown [id number] 2.16.840.1.326013.3.579.2.1 259 1976 Unknown [id number] 2.16.840.1.592536.3.579.2.1 96 1976 Unknown [id number] 2.16.840.1.977037.3.579.2.1 96 1959 Unknown [id number] 2.16.840.1.787288.19 1959 Unknown [id number] [facility] [id number] [id number] Self-pay Self Pay [id number] Unknown [id number] 2.16.840.1.201196.19 Social History Date Type Detail Facility Unknown if ever smoked [facility] Other Start: 11-06-2020 End: 05-26-2023 Sex Assigned At [employer] Other Start: 1975 Sex Assigned At Female F [facility] Start: 08-23-2017 Tobacco smoking stat us SDIS Never smoked tobacco [facility] Start: 08-23-2017 Tobacco use and exposure Smokeless tobacco non-user [facility] Start: 05-26-2023 Alcohol intake 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 documented in this encounter [facility] 12-24-2023 Telephone encount er Note Attempted to contact patient to reschedule appointment on 05/31/[address] Verdugo is out of the office. No Vm set up to leave a message. [facility] 05-03-2023 Evaluation note Encounter Date [...] fever. Patient/Parent verbalized understanding of treatment plan. [facility] Other 02-21-2023 Evaluation note* Encounter Date Diagnosis [...] weeks for the cough to go away [facility] Other 01-02-2023 Evaluation note* Encounter Date Diagnosis [...] obtained for C&S. Will call with results. [facility] Other 12-19-2022 Evaluation note* Encounter Date Diagnosis Assessment Notes Treatment Notes Treatment Clinical Notes Aug, Gastroesophageal ref lux disease, unspecified whether esophagitis present (ICD-10 - K21.9) Aug, PCOS (polycystic ovarian syndrome) (ICD-10 - E28.2) [facility] Other 10-18-2022 Evaluation note* Encounter Date Diagnosis Assessment Notes Treatment Notes Treatment Clinical Notes Jun, Fibromyalgia (ICD-10 - M79.7) Continue current treatment regimen. Printed off script to use as needed [facility] Other 10-04-2022 Evaluation note* Encounter Date Diagnosis Assessment Notes Treatment Notes Treatment Clinical Notes Jun, Primary hypertension (ICD-10 - I10) Jun, SJ (generalized anxiety disorder) (ICD-10 - F41.1) [facility] Other 07-07-2022 Evaluation note* Encounter Date Diagnosis Assessment Notes Treatment Notes Treatment Clinical Notes Mar, Right hip pain (ICD-10 - M25.551) [facility] Other 05-10-2022 Evaluation note* Encounter Date Diagnosis Assessment Notes Treatment Notes Treatment Clinical Notes January, Gastroesophageal ref lux disease, unspecified whether esophagitis present (ICD-10 - K21.9) Continue to take medication as directed. January, PCOS (polycystic ovarian syndrome) (ICD-10 - E28.2) Take medication as directed with food [facility] Other 03-16-2022 Evaluation note* Encounter Date Diagnosis Assessment Notes Treatment Notes Treatment Clinical Notes Nov, Sacral back pain (ICD-10 - M53.3) [facility] Other 02-14-2022 Evaluation note* Encounter Date Diagnosis Assessment Notes Treatment Notes Treatment Clinical Notes Oct, Gastroesophageal ref lux disease, unspecified whether esophagitis present (ICD-10 - K21.9) [facility] Other 02-14-2022 Evaluation note* Encounter Date Diagnosis Assessment Notes Treatment Notes Treatment Clinical Notes Oct, Sacral back pain (ICD-10 - M53.3) [facility] Other 2021 Evaluation note* Encounter Date Diagnosis [...] Patient care instructions given in writting by [facility] At Home document. [facility] Other Evaluation noteNo InformationN[facility] Other Evaluation noteNo assessment information available [facility] Work Phone: History general Narrative - Reported* Type Description Date Medical History asthma Medical History pcos Medical History Fibromyalgia Medical History Hypothyroidism - euthyroid Medical History chronic fatigue Surgical History gall bladder Surgical History vein removed in bilaterally Surgical History gastric sleeve Hospitalization History see above Hospitalization History CHILD X'S 5 [facility] Other InstructionsNot on filedocumented in this encounter [facility]Reason for visit NarrativeDermatology Referral Update [facility] Other Summary Purpose Family History No Family [...] and content) DATE CREATED AUTHOR 03/27/2022 [facility] DATE CREATED AUTHOR AUTHOR'S ORGANIZ ATION 01/29/2023 [facility] DATE CREATED AUTHOR AUTHOR'S ORGANIZ ATION 11/08/2023 [facility] DATE CREATED AUTHOR AUTHOR'S ORGANIZ ATION 02/24/2024 [facility] EPIC DATE CREATED AUTHOR AUTHOR'S ORGANIZ ATION 03/07/2024 [facility] Care Teams (unrecognized sec tion and content) Team Status: Inactive Member Role Status Dates PHYSICIAN NO FAMILY Primary Care Provider Active BRENT Jha-Flora Attending Provider Active Team Status: Active Member Role Status Dates PHYSICIAN NO FAMILY Primary Care Provider 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 [facility]. provides no warranty or guarantee of the accuracy or completeness of information in this document.
== END 2024-03-08 08:42 | disposition home or self-care (01) ==
LOC: PM 08:42
PROVIDERS: PCP Nurse Practitioner; Visit Provider Nurse Practitioner
DX: M48.02 Spinal stenosis, cervical region (principal); M54.12 Radiculopathy, cervical region; M79.18 Myalgia, other site; M25.511 Pain in right shoulder; G89.29 Other chronic pain
CPT/HCPCS: G0463

== ENCOUNTER 2024-05-25 20:17 | Outpatient (REF) | payer BC, MEDICAID, SELFPAY ==
--- OUTSIDE RECORDS SUMMARY | 2024-05-25 20:22 | XMS_ITS | CCD ---
Author Organization [facility] Care Team Providers Care Line Department Supervisor Name Role Phone Kaylie Echeverria Unavailable Mona Morin Unavailable NO FAMILY, PHYSICIAN Primary Care Provider Unava ilCHRISTIANO Lazaro Attending Provider MONA MORIN Primary Care Unavailable MISC, DR ELIAS Attending Unavailable MISC, DR ELIAS Admitting Unavailable AICHHOLZ, REGIONAL SALES COORDINATOR ELSI Consulting Unavailable MONA MORIN Consulting Unavailable MONA MORIN Primary Care Unavailable MONA MORIN Admitting Unavailable MONA MORIN Attending Unavailable MONA MORIN Primary Care Unavailable MONA MORIN Admitting Unavailable MONA MORIN Attending Unavailable MONA MORIN Consulting Unavailable Priyanka Jones Unavailable Mikel CAN RECONDITIONER-Mona KENNEDY Primary Care Provide r ELIS SUAREZ Attending Unavailable ELSI SUAREZ Attending Unavailable ELSI SUAREZ Attending Unavailable KRUNAL MCARTHUR Attending Unavailable AICHHOLShannan, ELSI Attending Unavailable TIMURHARGELIA, ELSI Attending Unavailable Elyssa MCBRIDE, [place] Mosqueda Attending Unavailable Elyssa MCBRIDE, [place] Mosqueda Attending Unavailable TD BERUMEN Attending Unavailable MONA MORIN Referring Unavailable MONA MORIN Primary Care Unavailable TD BERUMEN Attending Unavailable MONA MORIN Referring Unavailable MIKEL MONA Primary Care Unavailable Allergies Allergy Classification Reported Allergen(s) Allergy Type Date of Onset Reaction(s) Facility (5 sources) Cephalexin Drug Allergy rash [facility] Other (12 sources) Cephalexin Drug Allergy rash [facility] Other (1 source) Sulfamethoxazole / Trimethoprim Drug Allergy 3 [facility] Medications Current Medications Medication Drug Class(es) Dates Sig (Normalized) Sig (Original) [id number] 200 actuat albuterol 0.09 mg/actuat metered dose [...] oral solution (2 sources) alpha-Adrenergic Agonist, Uncompetitive T-mlyvmk-I-aspartate Receptor Antagonist, Sigma-1 Agonist Start: 08-31-2021 take [...] (20 sources) Central alpha-2 Adrenergic Agonist Start: 08-30-2023 take 1 tablet by mouth once daily [...] disorder, combined type] Onset: 06-04-2017 06-04-2017 Chronic Attention-deficit, conduct, and disruptive behavior disorders (1 source) Attention-deficit hyperactivity disorder, combined type; Translations: [Attention-deficit hyperactivity disorder, combined type] Onset: 06-04-2017 Chronic Chronic obstructive pulmonary disease and [...] fatigue, unspecified] Chronic Mood disorders (2 sources) Recurrent major depressive episodes, moderate ; Translations: [Major depressive disorder, recurrent, moderate] Onset: 06-04-2017 06-04-2017 Chronic Nutritional deficiencies (17 [...] pyogenes Org specific cx Ql (Throat) Negative Hmall.ma [facility] Other Quick Strep [facility] Other INSULINon 01-26-2023 Insulin 21.3 uIU/mL Normal 2.6-24.9 [facility] Comment on above: Performed By: #### I NSULIN #### [facility] [address] [place] [address] Dr. Yvan Manzano CORTISOLon 01-23-2023 Cortisol 11.2 ug/dL Normal 6.2-19.4 [facility] Comment on above: Result Comment: [place] Note: The reference interval and flagging for this test is for an AM collection. If this is a PM collection please use: Cortisol PM: 2.3-11.9 [facility] also offers: 000750: Cortisol- AM 680463: Cortisol- PM Performed By: #### C BC #### [facility] [address] [place] [address] Dr. Yvan Manzano CBC AUTO DIFFon 01-22-2023 BASO # 0.1 103/ul Normal 0.0-0.1 [facility] Comment on above: Performed By: #### C BC #### [facility] [address] [place] [address] Dr. Yvan Manzano Basophils/100 WBC (Bld) 0.9 % Normal 0.2-2.0 [facility] Comment on above: Performed By: #### C BC #### [facility] [address] [place] [address] Dr. Yvan Manzano EO # 0.3 103/ul Normal 0.0-0.7 [facility] Comment on above: Performed By: #### C BC #### [facility] [address] [place] [address] Dr. Yvan Manzano Eosinophils/100 WBC (Bld) 5.7 % Normal 0.9-7.0 [facility] Comment on above: Performed By: #### C BC #### [facility] [address] [place] [address] Dr. Yvan Manzano Erythrocyte distribution width (RBC) [Ratio] 14.6 % Normal 11.0-15.0 [facility] Comment on above: Performed By: #### C BC #### [facility] [address] [place] [address] Dr. Yvan Manzano Hematocrit (Bld) [Volume fraction] 36.8 % Normal 36.0-48.0 [facility] Comment on above: Performed By: #### C BC #### [facility] [address] [place] [address] Dr. Yvan Manzano Hemoglobin (Bld) [Mass/Vol] 11.4 g/dL Critically low 12.0-16.0 [facility] Comment on above: Performed By: #### C BC #### [facility] [address] [place] [address] Dr. Yvna Manzano IG # 0.02 10e3/ul Normal 0.00-0.03 [facility] Comment on above: Performed By: #### C BC #### [facility] [address] [place] [address] Dr. Yvan Manzano IG % 0.3 % Normal 0.0-0.5 [facility] Comment on above: Performed By: #### C BC #### [facility] [address] [place] [address] Dr. Yvan Manzano LYMPH # 1.5 103/ul Normal 1.2-3.8 [facility] Comment on above: Performed By: #### C BC #### [facility] [address] [place] [address] Dr. Yvan Manzano Lymphocytes/100 WBC (Bld) 25.3 % Normal 20.5-60.0 [facility] Comment on above: Performed By: #### C BC #### [facility] [address] [place] [address] Dr. Yvan Manzano MANUAL DIFF REQ NO Normal [facility] Comment on above: Performed By: #### C BC #### [facility] [address] [place] [address] Dr. Yvan Manzano MCH (RBC) [Entitic mass] 25.2 pg Critically low 26.7-34.0 [facility] Comment on above: Performed By: #### C BC #### [facility] [address] [place] [address] Dr. Yvan Manzano MCHC (RBC) [Mass/Vol] 31.0 g/dL Normal 29.9-35.2 [facility] Comment on above: Performed By: #### C BC #### [facility] [address] [place] [address] Dr. Yvan Manzano MCV (RBC) [Entitic vol] 81.4 fL Normal 81.0-99.0 [facility] Comment on above: Performed By: #### C BC #### [facility] [address] [place] [address] Dr. Yvan Manzano MONO # 0.4 103/ul Normal 0.3-0.8 [facility] Comment on above: Performed By: #### C BC #### [facility] [address] [place] [address] Dr. Yvan Manzano Monocytes/100 WBC (Bld) 7.7 % Normal 1.7-12.0 [facility] Comment on above: Performed By: #### C BC #### [facility] [address] [place] [address] Dr. Yvan Manzano NEUT # 3.5 103/ul Normal 1.4-6.5 [facility] Comment on above: Performed By: #### C BC #### [facility] [address] [place] [address] Dr. Yvan Manzano Neutrophils/100 WBC (Bld) 60.1 % Normal 43.0-75.0 [facility] Comment on above: Performed By: #### C BC #### [facility] [address] [place] [address] Dr. Yvan Manzano Platelet mean volume (Bld) [Entitic vol] 8.8 fL Critically low 9.5-13.5 [facility] Comment on above: Performed By: #### C BC #### [facility] [address] [address] [address] Yvan Manzano PLT 347 103/ul Normal 150-450 [facility] Comment on above: Performed By: #### C BC #### [facility] [address] [place] [address] Dr. Yvan Manzano RBC 4.52 106/ul Normal 4.20-5.40 [facility] Comment on above: Performed By: #### C BC #### [facility] [address] [place] [address] Dr. Yvan Manzano WBC 5.7 103/ul Normal 4.0-11.0 [facility] Comment on above: Performed By: #### C BC #### [facility] [address] [place] [address] Dr. Yvan Manzano FREE T4on 01-22-2023 Free T4 [Mass/Vol] 0.84 ng/dL Normal 0.76-1.46 [facility] Comment on above: Performed By: #### F T4 #### [facility] [address] [place] [address] Dr. Yvan Manzano LIPID PROFILEon 01-22-2023 CHOL-HDL RATIO NORM SEE BELOW Normal [facility] Comment on above: Result Comment: 3.3 - 4.4 LOW RISK 4.4 - 7.1 AVERAGE RISK 7.1 - 11.0 MODERATE RISK >11.0 HIGH RISK Performed By: #### T SH, LIPID #### [facility] [address] [place] [address] Dr. Yvan Manzano Cholesterol [Mass/Vol] 264 mg/dL Critically high <=200 [facility] Comment on above: Performed By: #### T SH, LIPID #### [facility] [address] [place] [address] Dr. Yvan Manzano Cholesterol in HDL [Mass/Vol] 52 mg/dL Normal 40-60 [facility] Comment on above: Performed By: #### T SH, LIPID #### [facility] [address] [place] [address] Dr. Yvan Manzano Cholesterol in LDL [Mass/Vol] 173.6 mg/dL Normal [facility] Comment on above: Performed By: #### T SH, LIPID #### [facility] [address] [address] [address] Yavn Manzano Cholesterol.total/Ch olesterol in HDL [Mass ratio] 5.1 {ratio} Normal [facility] Comment on above: Performed By: #### T SH, LIPID #### [facility] [address] [place] [address] Dr. Yvan Manzano HDL NORMAL > or = 60 mg/dl - LOW CARDIOVASCULAR RISK <40 mg/dl - HIGH CARDIOVASCULAR RISK Normal [facility] Comment on above: Performed By: #### T SH, LIPID #### [facility] [address] [address] [address] Yvan Manzano LDL CALC NORMAL SEE BELOW Normal [facility] Comment on above: Result Comment: <100 mg/dl OPTIMAL 100 - 129 mg/dl NEAR OR ABOVE OPTIMAL 130 - 159 mg/dl BORDERLINE HIGH 160 - 189 mg/dl HIGH >190 mg/dl VERY HIGH Performed By: #### T SH, LIPID #### [facility] [address] [place] [address] Dr. Yvan Manzano Triglyceride [Mass/Vol] 192 mg/dL Critically high <=150 [facility] Comment on above: Performed By: #### T SH, LIPID #### [facility] [address] [place] [address] Dr. Yvan Manzano VLDL CALC 38.4 mg/dL Normal [facility] Comment on above: Performed By: #### T SH, LIPID #### [facility] [address] [place] [address] Dr. Yvan Manzano TSHon 01-22-2023 TSH 5.749 uIU/mL Critically high 0.358-3.740 [facility] Comment on above: Performed By: #### T SH, LIPID #### [facility] [address] [place] [address] Dr. Yvan Manzano GLYCOHEMOGLOBIN A1Con 2022 ADA RECOMMENDATION SEE BELOW Normal [facility] Comment on above: Result Comment: ADA RECOMMENDED LIMIT 4.0 - 6.0 ADA THERAPEUTIC TARGET < 7.0 ACTION SUGGESTED > 7.0 Performed By: #### A 1C #### [facility] [address] [place] [address] Dr. Yvan Manzano Glucose [Mass/Vol] 137 mg/dL Normal [facility] Comment on above: Performed By: #### A 1C #### [facility] [address] [place] [address] Dr. Yvan Manzano HbA1c (Bld) [Mass fraction] 6.4 % Critically high 4.5-6.2 [facility] Comment on above: Performed By: #### A 1C #### [facility] [address] [place] [address] Dr. Yvan Manzano PROF 14(COMP METB)on 023 Albumin [Mass/Vol] 3.4 g/dL Normal 3.4-5.0 [facility] Comment on above: Performed By: #### C MP #### [facility] [address] [place] [address] Dr. Yvan Manzano Albumin/Globulin [Mass ratio] 0.9 {ratio} Normal [facility] Comment on above: Performed By: #### C MP #### [facility] [address] [place] [address] Dr. Yvan Manzano ALP [Catalytic activity/Vol] 74 U/L Normal 46-116 [facility] Comment on above: Performed By: #### C MP #### [facility] [address] [place] [address] Dr. Yvan Manzano ALT [Catalytic activity/Vol] 25 U/L Normal 14-59 [facility] Comment on above: Performed By: #### C MP #### [facility] [address] [place] [address] Dr. Yvan Manzano Anion gap [Moles/Vol] 9.4 mmol/L Normal [facility] Comment on above: Performed By: #### C MP #### [facility] [address] [place] [address] Dr. Yvan Manzano AST [Catalytic activity/Vol] 17 U/L Normal 15-37 [facility] Comment on above: Performed By: #### C MP #### [facility] [address] [address] [address] Yvan Manzano Bilirubin [Mass/Vol] 0.1 mg/dL Critically low 0.2-1.0 [facility] Comment on above: Performed By: #### C MP #### [facility] [address] [address] [address] Yvan Manzano Calcium [Mass/Vol] 9.2 mg/dL Normal 8.5-10.1 [facility] Comment on above: Performed By: #### C MP #### [facility] [address] [address] [address] Yvan Manzano Chloride [Moles/Vol] 101 mmol/L Normal 98-107 [facility] Comment on above: Performed By: #### C MP #### [facility] [address] [place] [address] Dr. Yvan Manzano CO2 [Moles/Vol] 30.4 mmol/L Normal 21.0-32.0 [facility] Comment on above: Performed By: #### C MP #### [facility] [address] [address] [address] Yvan Manzano Creatinine [Mass/Vol] 0.71 mg/dL Normal 0.55-1.02 [facility] Comment on above: Performed By: #### C MP #### [facility] [address] [place] [address] Dr. Yvan Manzano EGFR-AF AFGHAN >60 Normal >=60 [facility] Comment on above: Performed By: #### C MP #### [facility] [address] [address] [address] Yvan Manzano EGFR-NON AF AFGHAN >60 Normal >=60 [facility] Comment on above: Performed By: #### C MP #### [facility] [address] [place] [address] Dr. Yvan Manzano Globulin (S) [Mass/Vol] 4.0 g/dL Normal [facility] Comment on above: Performed By: #### C MP #### [facility] [address] [place] [address] Dr. Yvan Manzano Glucose [Mass/Vol] 138 mg/dL Critically high 74-106 [facility] Comment on above: Performed By: #### C MP #### [facility] [address] [address] [address] Yvan Manzano Potassium [Moles/Vol] 3.8 mmol/L Normal 3.5-5.1 [facility] Comment on above: Performed By: #### C MP #### [facility] [address] [address] [address] Yvan Manzano Protein [Mass/Vol] 7.4 g/dL Normal 6.4-8.2 [facility] Comment on above: Performed By: #### C MP #### [facility] [address] [address] [address] Yvan Manzano Sodium [Moles/Vol] 137 mmol/L Normal 136-145 [facility] Comment on above: Performed By: #### C MP #### [facility] [address] [address] [address] Yvan Manzano Urea nitrogen [Mass/Vol] 13.0 mg/dL Normal 7.0-18.0 [facility] Comment on above: Performed By: #### C MP #### [facility] [address] [address] [address] Yvan Manzano Urea nitrogen/Creatinine [Mass ratio] 18.3 mg/mg Normal [facility] Comment on above: Performed By: #### C MP #### [facility] [address] [address] [address] Yvan Manzano LIPID PROFILEon 03-31-2022 CHOL-HDL RATIO NORM SEE BELOW Normal [facility] Comment on above: Result Comment: 3.3 - 4.4 LOW RISK 4.4 - 7.1 AVERAGE RISK 7.1 - 11.0 MODERATE RISK >11.0 HIGH RISK Performed By: #### C MP, LIPID #### [facility] [address] [place] [address] Dr. Yvan Manzano Cholesterol [Mass/Vol] 229 mg/dL Critically high <=200 [facility] Comment on above: Performed By: #### C MP, LIPID #### [facility] [address] [address] [address] Yvan Manzano Cholesterol in HDL [Mass/Vol] 51 mg/dL Normal 40-60 [facility] Comment on above: Performed By: #### C MP, LIPID #### [facility] [address] [address] [address] Yvan Manzano Cholesterol in LDL [Mass/Vol] 150.4 mg/dL Normal [facility] Comment on above: Performed By: #### C MP, LIPID #### [facility] [address] [address] [address] Yvan Manzano Cholesterol.total/Ch olesterol in HDL [Mass ratio] 4.5 {ratio} Normal [facility] Comment on above: Performed By: #### C MP, LIPID #### [facility] [address] [place] [address] Dr. Yvan Manzano HDL NORMAL > or = 60 mg/dl - LOW CARDIOVASCULAR RISK <40 mg/dl - HIGH CARDIOVASCULAR RISK Normal [facility] Comment on above: Performed By: #### C MP, LIPID #### [facility] [address] [address] [address] Yvan Manzano LDL CALC NORMAL SEE BELOW Normal [facility] Comment on above: Result Comment: <100 mg/dl OPTIMAL 100 - 129 mg/dl NEAR OR ABOVE OPTIMAL 130 - 159 mg/dl BORDERLINE HIGH 160 - 189 mg/dl HIGH >190 mg/dl VERY HIGH Performed By: #### C MP, LIPID #### [facility] [address] [address] [address] Yvan Manzano Triglyceride [Mass/Vol] 138 mg/dL Normal <=150 [facility] Comment on above: Performed By: #### C MP, LIPID #### [facility] [address] [place] [address] Dr. Yvan Manzano VLDL CALC 27.6 mg/dL Normal [facility] Comment on above: Performed By: #### C MP, LIPID #### [facility] [address] [address] [address] Yvan Manzano MICROALB CREAT RATIO RANDOMo n 03-31-2022 mALB 1.4 mg/L Normal <=30.0 [facility] Comment on above: Performed By: #### M CRR #### [facility] [address] [address] [address] Yvan CARABALLO CR RATIO 6.0 mg/g Normal 0.0-29.9 [facility] Comment on above: Performed By: #### M CRR #### [facility] [address] [address] [address] Yvan Manzano MALB CR RATIO RANGE SEE BELOW Normal [facility] Comment on above: Result Comment: NO M ICROALBUMINURIA 0-29 MG/G CLINICAL MICROALBUMINURIA 30-300 MG/G MACROALBUMINURIA >300 MG/G Performed By: #### M CRR #### [facility] [address] [place] [address] Dr. Yvan Manzano URINE CREAT 232.88 mg/dL Normal 20.00-300.00 [facility] Comment on above: Performed By: #### M CRR #### [facility] [address] [place] [address] Dr. Yvan Manzano PROF 14(COMP METB)on 022 Albumin [Mass/Vol] 3.6 g/dL Normal 3.4-5.0 [facility] Comment on above: Performed By: #### C MP, LIPID #### [facility] [address] [place] [address] Dr. Yvan Manzano Albumin/Globulin [Mass ratio] 0.9 {ratio} Normal [facility] Comment on above: Performed By: #### C MP, LIPID #### [facility] [address] [place] [address] Dr. Yvan Manzano ALP [Catalytic activity/Vol] 63 U/L Normal 46-116 [facility] Comment on above: Performed By: #### C MP, LIPID #### [facility] [address] [address] [address] Yvan Manzano ALT [Catalytic activity/Vol] 33 U/L Normal 14-59 [facility] Comment on above: Performed By: #### C MP, LIPID #### [facility] [address] [address] [address] Yvan Manzano Anion gap [Moles/Vol] 11.7 mmol/L Normal [facility] Comment on above: Performed By: #### C MP, LIPID #### [facility] [address] [address] [address] Yvan Manzano AST [Catalytic activity/Vol] 23 U/L Normal 15-37 [facility] Comment on above: Performed By: #### C MP, LIPID #### [facility] [address] [address] [address] Yvan Manzano Bilirubin [Mass/Vol] 0.2 mg/dL Normal 0.2-1.0 [facility] Comment on above: Performed By: #### C MP, LIPID #### [facility] [address] [place] [address] Dr. Yvan Manzano Calcium [Mass/Vol] 9.5 mg/dL Normal 8.5-10.1 [facility] Comment on above: Performed By: #### C MP, LIPID #### [facility] [address] [place] [address] Dr. Yvan Manzano Chloride [Moles/Vol] 102 mmol/L Normal 98-107 [facility] Comment on above: Performed By: #### C MP, LIPID #### [facility] [address] [place] [address] Dr. Yvan Manzano CO2 [Moles/Vol] 28.0 mmol/L Normal 21.0-32.0 [facility] Comment on above: Performed By: #### C MP, LIPID #### [facility] [address] [place] [address] Dr. Yvan Manzano Creatinine [Mass/Vol] 0.71 mg/dL Normal 0.55-1.02 [facility] Comment on above: Performed By: #### C MP, LIPID #### [facility] [address] [address] [address] Yvan Manzano EGFR-AF AFGHAN >60 Normal >=60 [facility] Comment on above: Performed By: #### C MP, LIPID #### [facility] [address] [address] [address] Yvan Manzano EGFR-NON AF AFGHAN >60 Normal >=60 [facility] Comment on above: Performed By: #### C MP, LIPID #### [facility] [address] [address] [address] Yvan Manzano Globulin (S) [Mass/Vol] 4.0 g/dL Normal [facility] Comment on above: Performed By: #### C MP, LIPID #### [facility] [address] [address] [address] Yvan Manzano Glucose [Mass/Vol] 87 mg/dL Normal 74-106 [facility] Comment on above: Performed By: #### C MP, LIPID #### [facility] [address] [address] [address] Yvan Manzano Potassium [Moles/Vol] 3.7 mmol/L Normal 3.5-5.1 [facility] Comment on above: Performed By: #### C MP, LIPID #### [facility] [address] [address] [address] Yvan Manzano Protein [Mass/Vol] 7.6 g/dL Normal 6.4-8.2 [facility] Comment on above: Performed By: #### C MP, LIPID #### [facility] [address] [place] [address] Dr. Yvan Manzano Sodium [Moles/Vol] 138 mmol/L Normal 136-145 [facility] Comment on above: Performed By: #### C MP, LIPID #### [facility] [address] [address] [address] Yvan Manzano Urea nitrogen [Mass/Vol] 14.0 mg/dL Normal 7.0-18.0 [facility] Comment on above: Performed By: #### C MP, LIPID #### [facility] [address] [address] [address] Yvan Manzano Urea nitrogen/Creatinine [Mass ratio] 19.7 mg/mg Normal [facility] Comment on above: Performed By: #### C MP, LIPID #### [facility] [address] [address] [address] Yvan Manzano XR hip RT min 2V(w/wo pelvis )*on 03-26-2022 XR hip RT min 2V(w/wo pelvis)* [facility] Main [address] [address] XRay Report Signed Patient: Tatiana Sepulveda MR#: [id number] : 1975 Acct:[id number] Age/Sex: 46 / F ADM Date: 03/26/22 [...] M.D.03/26/2022 3:38 PM Dictation Location: [place] [address] Transcribed By: [facility] 03/26/22 1538 Dictated By: Michael Harper DO 03/26/22 1534 Signed By: 03/26/22 1538 Normal [facility] XR sacrum coccyx min 2Von XR sacrum coccyx min 2V [facility] Main [place] [id number] XRay Report Signed Patient: Tatiana Sepulveda MR#: [id number] : 1975 Acct:[id number] Age/Sex: 45 / F ADM Date: 09/29/21 [...] Laron Villegas M.D.09/29/2021 4:16 PM Dictation Location: [place] [address] Transcribed By: [facility] 09/29/21 161 Dictated By: Laron Villegas II, MD 09/29/21 161 Signed By: 09/29/21 161 [facility] COVID Quick Testingon 2020 Result Negative [facility] Other Vital Signs Date Time Vital Sign Value Performing Clinician Facility 05-03-2023 09:05-0400 Body height 157.48 cm Priyanka Jones Other [facility] Other 05-03-2023 09:05-0400 Body mass index (BMI) [Ratio] 35.02 kg/m2 Priyanka Jones Other [facility] Other 05-03-2023 09:05-0400 Body temperature 97.5 [degF] Priyanka Jones Other [facility] Other 05-03-2023 09:05-0400 Body weight 86.86 kg Priyanka Jones Other [facility] Other 05-03-2023 09:05-0400 Diastolic blood pressure 76 mm[Hg] Priyanka Olveraley Other [facility] Other 05-03-2023 09:05-0400 Respiratory rate 18 /min Priyanka Olveraley Other [facility] Other 05-03-2023 09:05-0400 SaO2% (BldA) [Mass fraction] 100 % Priyanka Olveraley Other [facility] Other 05-03-2023 09:05-0400 Systolic blood pressure 117 mm[Hg] Priyanka Olveraley Other [facility] Other 11-17-2022 11:30-0500 Body height 157.48 cm Mona Yeungault Other [facility] Other 11-17-2022 11:30-0500 Body mass index (BMI) [Ratio] 35.3 kg/m2 Mona Yeungault Other [facility] Other 11-17-2022 11:30-0500 Body temperature 98.7 [degF] Mona Mikel Other [facility] Other 11-17-2022 11:30-0500 Body weight 87.54 kg Mona Mikel Other [facility] Other 11-17-2022 11:30-0500 Respiratory rate 18 /min Mona iMkel Other [facility] Other 11-17-2022 11:30-0500 SaO2% (BldA) [Mass fraction] 98 % Mona Mikel Other [facility] Other 09-28-2022 16:30-0500 Body height 157.48 cm Mona Yeungault Other [facility] Other 09-28-2022 16:30-0500 Body mass index (BMI) [Ratio] 35.3 kg/m2 Mona Yeungault Other [facility] Other 09-28-2022 16:30-0500 Body temperature 98 [degF] Mona Yeungault Other [facility] Other 09-28-2022 16:30-0500 Body weight 87.54 kg Mona Yeungault Other [facility] Other 09-28-2022 16:30-0500 Diastolic blood pressure 79 mm[Hg] Mona Yeungault Other [facility] Other 09-28-2022 16:30-0500 Respiratory rate 18 /min Mona Morin Other [facility] Other 09-28-2022 16:30-0500 SaO2% (BldA) [Mass fraction] 98 % Mona Yeungault Other [facility] Other 09-28-2022 16:30-0500 Systolic blood pressure 130 mm[Hg] Mona Mikel Other [facility] Other 07-14-2022 15:00-0400 Body height 157.48 cm Mona Yeungault Other [facility] Other 07-14-2022 15:00-0400 Body mass index (BMI) [Ratio] 35.66 kg/m2 Mona Mikel Other [facility] Other 07-14-2022 15:00-0400 Body weight 88.45 kg Mona Morin Other [facility] Other 07-14-2022 15:00-0400 Diastolic blood pressure 89 mm[Hg] Mona Morin Other [facility] Other 07-14-2022 15:00-0400 Respiratory rate 18 /min Mona Morin Other [facility] Other 07-14-2022 15:00-0400 SaO2% (BldA) [Mass fraction] 98 % Mona Morin Other [facility] Other 07-14-2022 15:00-0400 Systolic blood pressure 145 mm[Hg] Mona Morin Other [facility] Other 06-30-2022 12:00-0400 Body height 157.48 cm Mona Morin Other [facility] Other 06-30-2022 12:00-0400 Body mass index (BMI) [Ratio] 35.48 kg/m2 Mona Morin Other [facility] Other 06-30-2022 12:00-0400 Body temperature 97.7 [degF] Mona Morin Other [facility] Other 06-30-2022 12:00-0400 Body weight 88 kg Mona Morin Other [facility] Other 06-30-2022 12:00-0400 Diastolic blood pressure 87 mm[Hg] Mona Morin Other [facility] Other 06-30-2022 12:00-0400 Respiratory rate 18 /min Mona Morin Other [facility] Other 06-30-2022 12:00-0400 SaO2% (BldA) [Mass fraction] 97 % Mona Morin Other [facility] Other 06-30-2022 12:00-0400 Systolic blood pressure 136 mm[Hg] Mona Morin Other [facility] Other 02-03-2022 11:00-0400 Body height 157.48 cm Mona Morin Other [facility] Other 02-03-2022 11:00-0400 Body mass index (BMI) [Ratio] 35.84 kg/m2 Mona Morin Other [facility] Other 02-03-2022 11:00-0400 Body temperature 98.2 [degF] Mona Morin Other [facility] Other 02-03-2022 11:00-0400 Body weight 88.91 kg Mona Morin Other [facility] Other 02-03-2022 11:00-0400 Diastolic blood pressure 96 mm[Hg] Mona Morin Other [facility] Other 02-03-2022 11:00-0400 Respiratory rate 18 /min Mona Morin Other [facility] Other 02-03-2022 11:00-0400 SaO2% (BldA) [Mass fraction] 99 % Mona Morin Other [facility] Other 02-03-2022 11:00-0400 Systolic blood pressure 157 mm[Hg] Mona Morin Other [facility] Other 08-31-2021 10:00-0500 Body height 157.48 cm Kaylie Ginty Other [facility] Other 08-31-2021 10:00-0500 Body mass index (BMI) [Ratio] 35.66 kg/m2 Kaylie Ginty Other [facility] Other 08-31-2021 10:00-0500 Body temperature 98.7 [degF] Kaylie Ginty Other [facility] Other 08-31-2021 10:00-0500 Body weight 88.45 kg Kaylie Ginty Other [facility] Other 08-31-2021 10:00-0500 Respiratory rate 18 /min Kaylie Ginty Other [facility] Other 08-31-2021 10:00-0500 SaO2% (BldA) [Mass fraction] 95 % Kaylie Ginty Other [facility] Other Encounters Encounter Date Encounter Type Care Provider Facility Start: 04-12-2024 End: 04-12-2024 ambulatory TD BERUMEN [facility] Start: 02-28-2024 End: 02-28-2024 ambulatory Montana Bergeron MD Facility: [facility] Start: 02-23-2024 End: 02-23-2024 ambulatory ELSI AICHHOLZ Not Available Start: 02-07-2024 End: 02-07-2024 ambulatory ELSI AICHHOLZ Not Available Start: 02-03-2024 End: 02-03-2024 ambulatory KRUNAL MCARTHUR Not Available Start: 01-17-2024 End: 01-17-2024 ambulatory Montana Bergeron MD Facility:[facility] Start: 01-11-2024 End: 01-11-2024 ambulatory ELSI AICHHOLZ Not Available Start: 12-24-2023 Telephone encounter Saeid Gooden [facility] Start: 11-04-2023 End: 11-04-2023 ambulatory TD Brenda [facility] Start: 10-26-2023 End: 10-26-2023 ambulatory ELSI AICHHOLZ Not Available Start: 09-13-2023 End: 09-13-2023 ambulatory ELSI AICHHOLZ Not Available Start: 05-03-2023 End: 05-03-2023 ambulatory Priyanka Jones Other [facility] Other Start: 05-03-2023 Office outpatient visit 15 minutes Priyanka Jones [facility] Start: 01-22-2023 End: 01-23-2023 ambulatory MONA MORIN Facility: Start: 11-23-2022 End: 11-23-2022 ambulatory Mona Morin Other [facility] Other Start: 11-23-2022 Telephone encounter Mona hyde [facility] Start: 11-20-2022 End: 11-20-2022 ambulatory Mona Morin Other [facility] Other Start: 11-20-2022 Encounter by juan Morin [facility] Start: 11-17-2022 End: 11-18-2022 ambulatory MONA MORIN [facility] Other Start: 11-17-2022 Office outpatient visit 15 minutes Mona Morin [facility] Start: 10-06-2022 End: 10-06-2022 ambulatory Monamonty Morin Other [facility] Other Start: 10-06-2022 Telephone encounter Monamonty Palmerl t [facility] Start: 09-29-2022 End: 09-29-2022 ambulatory PHYSICIAN NO [facility] Work Phone: Start: 09-29-2022 End: 09-29-2022 Departed Referred PHYSICIAN NO [facility] [place] Work Phone: Start: 09-28-2022 End: 09-28-2022 ambulatory Monamonty Morin Other [facility] Other Start: 09-28-2022 Office outpatient visit 15 minutes Monamonty Morin [facility] Start: 09-14-2022 End: 09-14-2022 ambulatory Monamonty Morin Other [facility] Other Start: 09-14-2022 Telephone encounter Monamonty Palmerl t [facility] Start: 07-14-2022 End: 07-14-2022 ambulatory Monamonty Morin Other [facility] Other Start: 07-14-2022 Office outpatient visit 15 minutes Monamonty Morin [facility] Start: 06-30-2022 End: 06-30-2022 ambulatory Mona Mikel Other [facility] Other Start: 06-30-2022 Office outpatient visit 15 minutes Mona Mikel [facility] Start: 04-02-2022 End: 04-02-2022 ambulatory Mona Mikel Other [facility] Other Start: 04-02-2022 Telephone encounter Mona Palmerl t [facility] Start: 03-31-2022 Telephone encounter Monamonty Palmerl t [facility] Start: 03-31-2022 End: 04-01-2022 ambulatory MONA MORIN [facility] Other Start: 02-03-2022 End: 02-03-2022 ambulatory Mona Morin Other [facility] Other Start: 02-03-2022 Office outpatient visit 15 minutes Mona Morin [facility] Start: 12-10-2021 End: 12-10-2021 ambulatory Mona Morin Other [facility] Other Start: 12-10-2021 Telephone encounter Monamonty Palmerl t [facility] Start: 11-10-2021 End: 11-10-2021 ambulatory Mona Morin Other [facility] Other Start: 11-10-2021 Telephone encounter Monamonty Palmerl t [facility] Start: 09-03-2021 End: 09-03-2021 ambulatory Kaylie Ginty Other [facility] Other Start: 09-03-2021 Telephone encounter Kaylie Ginty [facility] Start: 08-31-2021 End: 08-31-2021 ambulatory Kaylie Ginty Other [facility] Other Start: 08-31-2021 Office outpatient visit 15 minutes Kaylie Ginty [facility] Procedures Date Procedure Procedure Detail Performing Clinician Start: 10-11-2017 Mammography Saeid hogue CUSTOMER SERVICE ASSOCIATE Start: 02-05-2017 Microscopic observat ion [Identifier] in Cervix by Cyto stain Saeid Gooden CUSTOMER SERVICE ASSOCIATE Plan of Treatment Date Care Activity Detail Author Start: 05-26-2024 Adult BMI Screening Adult BMI Screen ing [facility] Start: 05-26-2024 Tobacco Screening Tobacco Screening [facility] Start: 05-28-2023 Influenza vaccination Influenza Vacc ine [facility] Start: 09-29-2022 Aerobic Culture Aerobic Culture [facility] Start: 09-29-2022 Anaerobic Culture Anaerobic Culture [facility] Start: 09-29-2022 Microscopic observat ion [Identifier] in Unspecified specimen by Gram stain Gram Stain [facility] Start: 02-06-2020 Screening for malign ant neoplasm of cervix Pap Smear [facility] Start: 10-11-2018 Screening for malign ant neoplasm of breast Mammogram [facility] Start: 12-06-1995 DTaP,Tdap and Td Vaccines (1 - Tdap) DTaP,Tdap and Td Vaccines ( - Tdap) [facility] Start: 1994 Adult BMI Follow Up Plan Adult BMI Follow Up Plan [facility] Start: 1988 Depression Screening Depression Scre ening [facility] Bacteria identified in Unspecified specimen by Aerobe culture [facility] Bacteria identified in Unspecified specimen by Anaerobe culture [facility] Immunizations Immunization Date Immunization Notes Care Provider Fa tooty 10-01-2020 influenza virus vacc ine, unspecified formulation Saeid Gooden [facility] Payers Date Payer Category Payer Medicaid [facility] MEDICAID [facility] MEDICAID [id number] 2022-Present [address] [place] [address] [id number] 2022 Medicaid [id number] [id number] 2017 Unknown [id number]. [id number] .[id number] 1975 Unknown [id number] 2..840.1.245833.3.579.2.5 93 1975 Unknown [id number] 2..840.1.502341.3.579.2.5 93 1975 Unknown [id number] 2.16.840.1.947384.3.579.2.5 93 1976 Unknown [id number] 2.16.840.1.484799.3.579.2.1 259 1975 Unknown [id number] 2.16.840.1.111944.3.579.2.1 259 1976 Unknown [id number] 2.16.840.1.265112.3.579.2.1 259 1976 Unknown [id number] 2.16.840.1.145894.3.579.2.1 259 1976 Unknown [id number] 2.16.840.1.171867.3.579.2.1 259 1976 Unknown [id number] 2.16.840.1.871130.3.579.2.1 259 1976 Unknown [id number] 2.16.840.1.124912.3.579.2.1 96 1976 Unknown [id number] 2.16.840.1.061151.3.579.2.1 96 1976 Unknown [id number] 2.16.840.1.972457.3.579.2.1 286 1975 Unknown [id number] 2.16.840.1.138888.3.579.2.1 286 1959 Unknown [id number] 2.16.840.1.384475.19 1959 Unknown [id number] Blue [employer] Blue [facility] [id number] [id number] Self-pay Self Pay [id number] Unknown [id number] 2.16840.1.311508.19 Social History Date Type Detail Facility Unknown if ever smoked [facility] Other Start: 11-06-2020 End: 05-26-2023 Sex Assigned At [facility] [email or web address] Other Start: 1975 Sex Assigned At Female [facility] Start: 08-23-2017 Tobacco smoking stat us NHIS Never smoked tobacco [facility] Start: 08-23-2017 Tobacco use and exposure Smokeless tobacco non-user [facility] Start: 05-26-2023 Alcohol intake Current non-dr sole inker of alcohol (finding) [facility] Start: 11-06-2020 End: 05-26-2023 History of Social function [facility] Childcare Unknown [facility] Start: 1975 Sex Assigned At Not on file [facility] Medical Equipment Procedure Code Equipment Code [...] fever. Patient/Parent verbalized understanding of treatment plan. [facility] Other 02-21-2023 Evaluation note* Encounter Date Diagnosis [...] weeks for the cough to go away [facility] Other 01-02-2023 Evaluation note* Encounter Date Diagnosis [...] obtained for C&S. Will call with results. [facility] Other 12-19-2022 Evaluation note* Encounter Date Diagnosis Assessment Notes Treatment Notes Treatment Clinical Notes Aug, Gastroesophageal ref lux disease, unspecified whether esophagitis present (ICD-10 - K21.9) Aug, PCOS (polycystic ovarian syndrome) (ICD-10 - E28.2) [facility] Other 10-18-2022 Evaluation note* Encounter Date Diagnosis Assessment Notes Treatment Notes Treatment Clinical Notes Jun, Fibromyalgia (ICD-10 - M79.7) Continue current treatment regimen. Printed off script to use as needed [facility] Other 10-04-2022 Evaluation note* Encounter Date Diagnosis Assessment Notes Treatment Notes Treatment Clinical Notes Jun, Primary hypertension (ICD-10 - I10) Jun, SJ (generalized anxiety disorder) (ICD-10 - F41.1) [facility] Other 07-07-2022 Evaluation note* Encounter Date Diagnosis Assessment Notes Treatment Notes Treatment Clinical Notes Mar, Right hip pain (ICD-10 - M25.551) [facility] Other 05-10-2022 Evaluation note* Encounter Date Diagnosis Assessment Notes Treatment Notes Treatment Clinical Notes January, Gastroesophageal ref lux disease, unspecified whether esophagitis present (ICD-10 - K21.9) Continue to take medication as directed. January, PCOS (polycystic ovarian syndrome) (ICD-10 - E28.2) Take medication as directed with food [facility] Other 03-16-2022 Evaluation note* Encounter Date Diagnosis Assessment Notes Treatment Notes Treatment Clinical Notes Nov, Sacral back pain (ICD-10 - M53.3) [facility] Other 02-14-2022 Evaluation note* Encounter Date Diagnosis Assessment Notes Treatment Notes Treatment Clinical Notes Oct, Gastroesophageal ref lux disease, unspecified whether esophagitis present (ICD-10 - K21.9) [facility] Other 02-14-2022 Evaluation note* Encounter Date Diagnosis Assessment Notes Treatment Notes Treatment Clinical Notes Oct, Sacral back pain (ICD-10 - M53.3) [facility] Other 2021 Evaluation note* Encounter Date Diagnosis [...] Patient care instructions given in writting by [facility] At Home document. [facility] Other Evaluation noteNo InformationNort SRE [place] - 2 Other Evaluation noteNo assessment information available [facility] Work Phone: History general Narrative - Reported* Type Description Date Medical History asthma Medical History pcos Medical History Fibromyalgia Medical History Hypothyroidism - euthyroid Medical History chronic fatigue Surgical History gall bladder Surgical History vein removed in bilaterally Surgical History gastric sleeve Hospitalization History see above Hospitalization History CHILD X'S 5 [facility] Other InstructionsNot on filedocumented in this encounter [facility] CRAiLAR SystemReason for visit NarrativeDermatology Referral Update [facility] Other Summary Purpose Family History No Family [...] content) DATE CREATED AUTHOR 03/27/[address] [facility] DATE CREATED AUTHOR AUTHOR'S ORGANIZ ATION 01/29/2023 [facility] DATE CREATED AUTHOR AUTHOR'S ORGANIZ ATION 02/24/2024 [facility] EPIC DATE CREATED AUTHOR AUTHOR'S ORGANIZ ATION 03/07/2024 [facility] DATE CREATED AUTHOR AUTHOR'S ORGANIZ ATION 04/16/2024 [facility] Care Teams (unrecognized sec tion and content) Team Status: Inactive Member Role Status Dates PHYSICIAN NO FAMILY Primary Care Provider Active CHRISTIANO Jha Attending Provider Active Team Status: Active Member Role Status Dates PHYSICIAN NO FAMILY Primary Care Provider Active Line Department Supervisor Relationship Specialty Start Date End Date Mona Morin APRN-FNP [address] [place] [address] PCP - General Family Medicine 01/08/21 Goals [...] BE BASED ON THE PRIMARY CLINICAL RECORDS. [email or web address] provides no warranty or guarantee of the accuracy or completeness of information in this document.
[2024-05-31 13:08] LABS: Age Gdln ACOG Testing Note (.); HPV Aptima Negative (Negative); IGP, Aptima HPV, rfx 16/18,45 Note (.)
== END 2024-05-25 20:18 | disposition home or self-care (01) ==
LOC: LAB 20:17
PROVIDERS: PCP Nurse Practitioner; Visit Provider Nurse Practitioner
DX: Z01.419 Encounter for gynecological examination (general) (routine) without abnormal findings (principal)
CPT/HCPCS: 87624; 88175

== ENCOUNTER 2024-05-26 13:16 | Outpatient (OUT) | payer BC, MEDICAID, SELFPAY ==
--- OUTSIDE RECORDS SUMMARY | 2024-05-26 13:26 | XMS_ITS | CCD ---
Author Organization [facility] Care Team Providers Care Air Support Control Officer Name Role Phone Kaylie Echeverria Unavailable Mona Morin Unavailable NO FAMILY, PHYSICIAN Primary Care Provider Unava ilCHRISTIANO Lazaro Attending Provider MONA MORIN Primary Care Unavailable MISC, DR ELIAS Attending Unavailable MISC, DR ELIAS Admitting Unavailable AICHHOLZ, TREATER HELPER ELSI Consulting Unavailable MOAN MORIN Consulting Unavailable MONA MORIN Primary Care Unavailable MONA MORIN Admitting Unavailable MONA MORIN Attending Unavailable MONA MORIN Primary Care Unavailable MONA MORIN Admitting Unavailable MONA MORIN Attending Unavailable MONA MORIN Consulting Unavailable Priyanka Jones Unavailable Mikel FLIGHT FOLLOWER-Mona KENNEDY Primary Care Provide r ELSI SUAREZ Attending Unavailable ELSI SUAREZ Attending Unavailable ELSI SUAREZ Attending Unavailable KRUNAL MCARTHUR Attending Unavailable AICHHOLShannan, ELSI Attending Unavailable TIMURHARGELIA, ELSI Attending Unavailable Elyssa MCBRIDE, [place] Mosqueda Attending Unavailable Elyssa MCBRIDE, [place] Mosqueda Attending Unavailable TD BERUMEN Attending Unavailable MONA MORIN Referring Unavailable MONA MORIN Primary Care Unavailable TD BERUMEN Attending Unavailable OMNA MORIN Referring Unavailable MIKEL MONA Primary Care Unavailable Allergies Allergy Classification Reported Allergen(s) Allergy Type Date of Onset Reaction(s) Facility (5 sources) Cephalexin Drug Allergy rash [facility] Other (12 sources) Cephalexin Drug Allergy rash [facility] Other (1 source) Sulfamethoxazole / Trimethoprim Drug Allergy 3 [facility] Medications Current Medications Medication Drug Class(es) Dates Sig (Normalized) Sig (Original) [id number] 200 actuat albuterol 0.09 mg/actuat metered dose [...] oral solution (2 sources) alpha-Adrenergic Agonist, Uncompetitive B-ifqjzm-Q-aspartate Receptor Antagonist, Sigma-1 Agonist Start: 08-31-2021 take [...] pyogenes Org specific cx Ql (Throat) Negative [facility] mig33 Other Quick Strep [facility] mig33 Other INSULINon 01-26-2023 Insulin 21.3 uIU/mL Normal 2.6-24.9 [facility] Comment on above: Performed By: #### I NSULIN #### [facility] [address] [place] [address] Dr. Yvan Manzano CORTISOLon 01-23-2023 Cortisol 11.2 ug/dL Normal 6.2-19.4 [facility] Comment on above: Result Comment: [place] Note: The reference interval and flagging for this test is for an AM collection. If this is a PM collection please use: Cortisol PM: 2.3-11.9 [facility] also offers: [id number]: Cortisol- AM 396108: Cortisol- PM Performed By: #### C BC #### [facility] [address] [place] [address] Dr. Yvan Manzano CBC AUTO DIFFon 01-22-2023 BASO # 0.1 103/ul Normal 0.0-0.1 [facility] Comment on above: Performed By: #### C BC #### [facility] [address] [place] [address] Dr. Yvan Manzano Basophils/100 WBC (Bld) 0.9 % Normal 0.2-2.0 [facility] Comment on above: Performed By: #### C BC #### [facility] [address] [place] [address] Dr. Yvan Manzano EO # 0.3 103/ul Normal 0.0-0.7 [facility] Comment on above: Performed By: #### C BC #### [facility] [address] [place] [address] Dr. Yvan Manzano Eosinophils/100 WBC (Bld) 5.7 % Normal 0.9-7.0 [facility] Comment on above: Performed By: #### C BC #### [facility] [address] [place] [address] Dr. Yvan Manzano Erythrocyte distribution width (RBC) [Ratio] 14.6 % Normal 11.0-15.0 [facility] Comment on above: Performed By: #### C BC #### [facility] [address] [place] [address] Dr. Yvan Manzano Hematocrit (Bld) [Volume fraction] 36.8 % Normal 36.0-48.0 [facility] Comment on above: Performed By: #### C BC #### [facility] [address] [place] [address] Dr. Yvan Manzano Hemoglobin (Bld) [Mass/Vol] 11.4 g/dL Critically low 12.0-16.0 [facility] Comment on above: Performed By: #### C BC #### [facility] [address] [place] [address] Dr. Yvan Manzano IG # 0.02 10e3/ul Normal 0.00-0.03 [facility] Comment on above: Performed By: #### C BC #### [facility] [address] [place] [address] Dr. Yvan Manzano IG % 0.3 % Normal 0.0-0.5 [facility] Comment on above: Performed By: #### C BC #### [facility] [address] [place] [address] Dr. Yvan Manzano LYMPH # 1.5 103/ul Normal 1.2-3.8 [facility] Comment on above: Performed By: #### C BC #### [facility] [address] [place] [address] Dr. Yvan Manzano Lymphocytes/100 WBC (Bld) 25.3 % Normal 20.5-60.0 [facility] Comment on above: Performed By: #### C BC #### [facility] [address] [place] [address] Dr. Yvan Manzano MANUAL DIFF REQ NO Normal [facility] Comment on above: Performed By: #### C BC #### [facility] [address] [place] [address] Dr. Yvan Manzano MCH (RBC) [Entitic mass] 25.2 pg Critically low 26.7-34.0 [facility] Comment on above: Performed By: #### C BC #### [facility] [address] [place] [address] Dr. Yvan Manzano MCHC (RBC) [Mass/Vol] 31.0 g/dL Normal 29.9-35.2 [facility] Comment on above: Performed By: #### C BC #### [facility] [address] [place] [address] Dr. Yvan Manzano MCV (RBC) [Entitic vol] 81.4 fL Normal 81.0-99.0 [facility] Comment on above: Performed By: #### C BC #### [facility] [address] [place] [address] Dr. Yvan Manzano MONO # 0.4 103/ul Normal 0.3-0.8 [facility] Comment on above: Performed By: #### C BC #### [facility] [address] [place] [address] Dr. Yvan Manzano Monocytes/100 WBC (Bld) 7.7 % Normal 1.7-12.0 [facility] Comment on above: Performed By: #### C BC #### [facility] [address] [place] [address] Dr. Yvan Manzano NEUT # 3.5 103/ul Normal 1.4-6.5 [facility] Comment on above: Performed By: #### C BC #### [facility] [address] [place] [address] Dr. Yvan Manzano Neutrophils/100 WBC (Bld) 60.1 % Normal 43.0-75.0 [facility] Comment on above: Performed By: #### C BC #### [facility] [address] [place] [address] Dr. Yvan Manzano Platelet mean volume (Bld) [Entitic vol] 8.8 fL Critically low 9.5-13.5 [facility] Comment on above: Performed By: #### C BC #### [facility] [address] [address] [address] Yvan Manzano PLT 347 103/ul Normal 150-450 [facility] Comment on above: Performed By: #### C BC #### [facility] [address] [place] [address] Dr. Yvan Manzano RBC 4.52 106/ul Normal 4.20-5.40 [facility] Comment on above: Performed By: #### C BC #### [facility] [address] [place] [address] Dr. Yvan Manzano WBC 5.7 103/ul Normal 4.0-11.0 [facility] Comment on above: Performed By: #### C BC #### [facility] [address] [place] [address] Dr. Yvan Manzano FREE T4on 01-22-2023 Free T4 [Mass/Vol] 0.84 ng/dL Normal 0.76-1.46 [facility] Comment on above: Performed By: #### F T4 #### [facility] [address] [place] [address] Dr. Yvan Manzano LIPID PROFILEon 01-22-2023 CHOL-HDL RATIO NORM SEE BELOW Normal [facility] Comment on above: Result Comment: 3.3 - 4.4 LOW RISK 4.4 - 7.1 AVERAGE RISK 7.1 - 11.0 MODERATE RISK >11.0 HIGH RISK Performed By: #### T SH, LIPID #### [facility] [address] [place] [address] Dr. Yvan Manzano Cholesterol [Mass/Vol] 264 mg/dL Critically high <=200 [facility] Comment on above: Performed By: #### T SH, LIPID #### [facility] [address] [place] [address] Dr. Yvan Manzano Cholesterol in HDL [Mass/Vol] 52 mg/dL Normal 40-60 [facility] Comment on above: Performed By: #### T SH, LIPID #### [facility] [address] [place] [address] Dr. Yvan Manzano Cholesterol in LDL [Mass/Vol] 173.6 mg/dL Normal [facility] Comment on above: Performed By: #### T SH, LIPID #### [facility] [address] [address] [address] Yvan Manzano Cholesterol.total/Ch olesterol in HDL [Mass ratio] 5.1 {ratio} Normal [facility] Comment on above: Performed By: #### T SH, LIPID #### [facility] [address] [place] [address] Dr. Yvan Manzano HDL NORMAL > or = 60 mg/dl - LOW CARDIOVASCULAR RISK <40 mg/dl - HIGH CARDIOVASCULAR RISK Normal [facility] Comment on above: Performed By: #### T SH, LIPID #### [facility] [address] [address] [address] Yvan Manzano LDL CALC NORMAL SEE BELOW Normal [facility] Comment on above: Result Comment: <100 mg/dl OPTIMAL 100 - 129 mg/dl NEAR OR ABOVE OPTIMAL 130 - 159 mg/dl BORDERLINE HIGH 160 - 189 mg/dl HIGH >190 mg/dl VERY HIGH Performed By: #### T SH, LIPID #### [facility] [address] [place] [address] Dr. Yvan Manzano Triglyceride [Mass/Vol] 192 mg/dL Critically high <=150 [facility] Comment on above: Performed By: #### T SH, LIPID #### [facility] [address] [place] [address] Dr. Yavn Manzano VLDL CALC 38.4 mg/dL Normal [facility] Comment on above: Performed By: #### T SH, LIPID #### [facility] [address] [place] [address] Dr. Yvan Manzano TSHon 01-22-2023 TSH 5.749 uIU/mL Critically high 0.358-3.740 [facility] Comment on above: Performed By: #### T SH, LIPID #### [facility] [address] [place] [address] Dr. Yvan Manzano GLYCOHEMOGLOBIN A1Con 2022 ADA RECOMMENDATION SEE BELOW Normal [facility] Comment on above: Result Comment: ADA RECOMMENDED LIMIT 4.0 - 6.0 ADA THERAPEUTIC TARGET < 7.0 ACTION SUGGESTED > 7.0 Performed By: #### A 1C #### [facility] [address] [place] [address] Dr. Yvan Manzano Glucose [Mass/Vol] 137 mg/dL Normal [facility] Comment on above: Performed By: #### A 1C #### [facility] [address] [place] [address] Dr. Yvan Manzano HbA1c (Bld) [Mass fraction] 6.4 % Critically high 4.5-6.2 [facility] Comment on above: Performed By: #### A 1C #### [facility] [address] [place] [address] Dr. Yvan Manzano PROF 14(COMP METB)on 023 Albumin [Mass/Vol] 3.4 g/dL Normal 3.4-5.0 [facility] Comment on above: Performed By: #### C MP #### [facility] [address] [place] [address] Dr. Yvan Manzano Albumin/Globulin [Mass ratio] 0.9 {ratio} Normal [facility] Comment on above: Performed By: #### C MP #### [facility] [address] [place] [address] Dr. Yvan Manzano ALP [Catalytic activity/Vol] 74 U/L Normal 46-116 [facility] Comment on above: Performed By: #### C MP #### [facility] [address] [place] [address] Dr. Yvan Manzano ALT [Catalytic activity/Vol] 25 U/L Normal 14-59 [facility] Comment on above: Performed By: #### C MP #### [facility] [address] [place] [address] Dr. Yvan Manzano Anion gap [Moles/Vol] 9.4 mmol/L Normal [facility] Comment on above: Performed By: #### C MP #### [facility] [address] [place] [address] Dr. Yvan Manzano AST [Catalytic activity/Vol] 17 U/L Normal 15-37 [facility] Comment on above: Performed By: #### C MP #### [facility] [address] [address] [address] Yvan Manzano Bilirubin [Mass/Vol] 0.1 mg/dL Critically low 0.2-1.0 [facility] Comment on above: Performed By: #### C MP #### [facility] [address] [address] [address] Yvan Manzano Calcium [Mass/Vol] 9.2 mg/dL Normal 8.5-10.1 [facility] Comment on above: Performed By: #### C MP #### [facility] [address] [address] [address] Yvan Manzano Chloride [Moles/Vol] 101 mmol/L Normal 98-107 [facility] Comment on above: Performed By: #### C MP #### [facility] [address] [place] [address] Dr. Yvan Manzano CO2 [Moles/Vol] 30.4 mmol/L Normal 21.0-32.[address] [facility] Comment on above: Performed By: #### C MP #### [facility] [address] [address] [address] Yvan Manzano Creatinine [Mass/Vol] 0.71 mg/dL Normal 0.55-1.02 [facility] Comment on above: Performed By: #### C MP #### [facility] [address] [place] [address] Dr. Yvan Manzano EGFR-AF CAMEROONIAN >60 Normal >=60 [facility] Comment on above: Performed By: #### C MP #### [facility] [address] [address] [address] Yvan Manzano EGFR-NON AF CAMEROONIAN >60 Normal >=60 [facility] Comment on above: Performed By: #### C MP #### [facility] [address] [place] [address] Dr. Yvan Manzano Globulin (S) [Mass/Vol] 4.0 g/dL Normal [facility] Comment on above: Performed By: #### C MP #### [facility] [address] [place] [address] Dr. Yvan Manzano Glucose [Mass/Vol] 138 mg/dL Critically high 74-106 [facility] Comment on above: Performed By: #### C MP #### [facility] [address] [address] [address] Yvan Manzano Potassium [Moles/Vol] 3.8 mmol/L Normal 3.5-5.1 [facility] Comment on above: Performed By: #### C MP #### [facility] [address] [address] [address] Yvan Manzano Protein [Mass/Vol] 7.4 g/dL Normal 6.4-8.2 [facility] Comment on above: Performed By: #### C MP #### [facility] [address] [address] [address] Yvan Manzano Sodium [Moles/Vol] 137 mmol/L Normal 136-145 [facility] Comment on above: Performed By: #### C MP #### [facility] [address] [address] [address] Yvan Manzano Urea nitrogen [Mass/Vol] 13.0 mg/dL Normal 7.0-18.0 [facility] Comment on above: Performed By: #### C MP #### [facility] [address] [address] [address] Yvan Manzano Urea nitrogen/Creatinine [Mass ratio] 18.3 mg/mg Normal [facility] Comment on above: Performed By: #### C MP #### [facility] [address] [address] [address] Yvan Manzano LIPID PROFILEon 03-31-2022 CHOL-HDL RATIO NORM SEE BELOW Normal [facility] Comment on above: Result Comment: 3.3 - 4.4 LOW RISK 4.4 - 7.1 AVERAGE RISK 7.1 - 11.0 MODERATE RISK >11.0 HIGH RISK Performed By: #### C MP, LIPID #### [facility] [address] [place] [address] Dr. Yvan Manzano Cholesterol [Mass/Vol] 229 mg/dL Critically high <=200 [facility] Comment on above: Performed By: #### C MP, LIPID #### [facility] [address] [address] [address] Yvan Manzano Cholesterol in HDL [Mass/Vol] 51 mg/dL Normal 40-60 [facility] Comment on above: Performed By: #### C MP, LIPID #### [facility] [address] [address] [address] Yvan Manzano Cholesterol in LDL [Mass/Vol] 150.4 mg/dL Normal [facility] Comment on above: Performed By: #### C MP, LIPID #### [facility] [address] [address] [address] Yvan Manzano Cholesterol.total/Ch olesterol in HDL [Mass ratio] 4.5 {ratio} Normal [facility] Comment on above: Performed By: #### C MP, LIPID #### [facility] [address] [place] [address] Dr. Yvan Manzano HDL NORMAL > or = 60 mg/dl - LOW CARDIOVASCULAR RISK <40 mg/dl - HIGH CARDIOVASCULAR RISK Normal [facility] Comment on above: Performed By: #### C MP, LIPID #### [facility] [address] [address] [address] Yvan Manzano LDL CALC NORMAL SEE BELOW Normal [facility] Comment on above: Result Comment: <100 mg/dl OPTIMAL 100 - 129 mg/dl NEAR OR ABOVE OPTIMAL 130 - 159 mg/dl BORDERLINE HIGH 160 - 189 mg/dl HIGH >190 mg/dl VERY HIGH Performed By: #### C MP, LIPID #### [facility] [address] [address] [address] Yvan Manzano Triglyceride [Mass/Vol] 138 mg/dL Normal <=150 [facility] Comment on above: Performed By: #### C MP, LIPID #### [facility] [address] [place] [address] Dr. Yvan Manzano VLDL CALC 27.6 mg/dL Normal [facility] Comment on above: Performed By: #### C MP, LIPID #### [facility] [address] [address] [address] Yvan Manzano MICROALB CREAT RATIO RANDOMo n 03-31-2022 mALB 1.4 mg/L Normal <=30.0 [facility] Comment on above: Performed By: #### M CRR #### [facility] [address] [address] [address] Yvan CARABALLO CR RATIO 6.0 mg/g Normal 0.0-29.9 [facility] Comment on above: Performed By: #### M CRR #### [facility] [address] [address] [address] Yvan Manzano MALB CR RATIO RANGE SEE BELOW Normal [facility] Comment on above: Result Comment: NO M ICROALBUMINURIA 0-29 MG/G CLINICAL MICROALBUMINURIA 30-300 MG/G MACROALBUMINURIA >300 MG/G Performed By: #### M CRR #### [facility] [address] [place] [address] Dr. Yvan Manzano URINE CREAT 232.88 mg/dL Normal 20.00-300.00 [facility] Comment on above: Performed By: #### M CRR #### [facility] [address] [place] [address] Dr. Yvan Manzano PROF 14(COMP METB)on 022 Albumin [Mass/Vol] 3.6 g/dL Normal 3.4-5.0 [facility] Comment on above: Performed By: #### C MP, LIPID #### [facility] [address] [place] [address] Dr. Yvan Manzano Albumin/Globulin [Mass ratio] 0.9 {ratio} Normal [facility] Comment on above: Performed By: #### C MP, LIPID #### [facility] [address] [place] [address] Dr. Yvan Manzano ALP [Catalytic activity/Vol] 63 U/L Normal 46-116 [facility] Comment on above: Performed By: #### C MP, LIPID #### [facility] [address] [address] [address] Yvan Manzano ALT [Catalytic activity/Vol] 33 U/L Normal 14-59 [facility] Comment on above: Performed By: #### C MP, LIPID #### [facility] [address] [address] [address] Yvan Manzano Anion gap [Moles/Vol] 11.7 mmol/L Normal [facility] Comment on above: Performed By: #### C MP, LIPID #### [facility] [address] [address] [address] Yvan Manzano AST [Catalytic activity/Vol] 23 U/L Normal 15-37 [facility] Comment on above: Performed By: #### C MP, LIPID #### [facility] [address] [address] [address] Yvan Manzano Bilirubin [Mass/Vol] 0.2 mg/dL Normal 0.2-1.0 [facility] Comment on above: Performed By: #### C MP, LIPID #### [facility] [address] [place] [address] Dr. Yvan Manzano Calcium [Mass/Vol] 9.5 mg/dL Normal 8.5-10.1 [facility] Comment on above: Performed By: #### C MP, LIPID #### [facility] [address] [place] [address] Dr. Yvan Manzano Chloride [Moles/Vol] 102 mmol/L Normal 98-107 [facility] Comment on above: Performed By: #### C MP, LIPID #### [facility] [address] [place] [address] Dr. Yvan Manzano CO2 [Moles/Vol] 28.0 mmol/L Normal 21.0-32.0 [facility] Comment on above: Performed By: #### C MP, LIPID #### [facility] [address] [place] [address] Dr. Yvan Manzano Creatinine [Mass/Vol] 0.71 mg/dL Normal 0.55-1.02 [facility] Comment on above: Performed By: #### C MP, LIPID #### [facility] [address] [address] [address] Yvan Manzano EGFR-AF CAMEROONIAN >60 Normal >=60 [facility] Comment on above: Performed By: #### C MP, LIPID #### [facility] [address] [address] [address] Yvan Manzano EGFR-NON AF CAMEROONIAN >60 Normal >=60 [facility] Comment on above: Performed By: #### C MP, LIPID #### [facility] [address] [address] [address] Yvan Manzano Globulin (S) [Mass/Vol] 4.0 g/dL Normal [facility] Comment on above: Performed By: #### C MP, LIPID #### [facility] [address] [address] [address] Yvan Manzano Glucose [Mass/Vol] 87 mg/dL Normal 74-106 [facility] Comment on above: Performed By: #### C MP, LIPID #### [facility] [address] [address] [address] Yvan Manzano Potassium [Moles/Vol] 3.7 mmol/L Normal 3.5-5.1 [facility] Comment on above: Performed By: #### C MP, LIPID #### [facility] [address] [address] [address] Yvan Manzano Protein [Mass/Vol] 7.6 g/dL Normal 6.4-8.2 [facility] Comment on above: Performed By: #### C MP, LIPID #### [facility] [address] [place] [address] Dr. Yvan Manzano Sodium [Moles/Vol] 138 mmol/L Normal 136-145 [facility] Comment on above: Performed By: #### C MP, LIPID #### [facility] [address] [address] [address] Yvan Manzano Urea nitrogen [Mass/Vol] 14.0 mg/dL Normal 7.0-18.0 [facility] Comment on above: Performed By: #### C MP, LIPID #### [facility] [address] [address] [address] Yvan Manzano Urea nitrogen/Creatinine [Mass ratio] 19.7 mg/mg Normal [facility] Comment on above: Performed By: #### C MP, LIPID #### [facility] [address] [address] [address] Yvan Manzano XR hip RT min 2V(w/wo pelvis )*on 03-26-2022 XR hip RT min 2V(w/wo pelvis)* [facility] Main [address] [address] XRay Report Signed Patient: Tatiana Seuplveda MR#: [id number] : 1975 Acct:[id number] Age/Sex: 46 / F ADM Date: 03/26/22 [...] Michael Harper M.D.03/26/2022 3:38 PM Dictation Location: [place] [address] Transcribed By: [facility] 03/26/22 1538 Dictated By: Michael Harper DO 03/26/22 1534 Signed By: 03/26/22 1538 Normal [facility] XR sacrum coccyx min 2Von XR sacrum coccyx min 2V [facility] Main [place] [id number] XRay Report Signed Patient: Tatiana Sepulveda MR#: [id number] : 1975 Acct:[id number] Age/Sex: 45 / F ADM Date: 09/29/21 [...] Laron Villegas M.D.09/29/2021 4:16 PM Dictation Location: [place] [address] Transcribed By: [facility] 09/29/21 161 Dictated By: Laron Villegas II, MD 09/29/21 161 Signed By: 09/29/21 161 [facility] COVID Quick Testingon 2020 Result Negative [facility] Other Vital Signs Date Time Vital Sign Value Performing Clinician Facility 05-03-2023 09:05-0400 Body height 157.48 cm Priyanka Jones Other [facility] Other 05-03-2023 09:05-0400 Body mass index (BMI) [Ratio] 35.02 kg/m2 Priyanka Jones Other [facility] Other 05-03-2023 09:05-0400 Body temperature 97.5 [degF] Priyanka Jones Other [facility] Other 05-03-2023 09:05-0400 Body weight 86.86 kg Priyanka Jones Other [facility] Other 05-03-2023 09:05-0400 Diastolic blood pressure 76 mm[Hg] Priyanka Olveraley Other [facility] Other 05-03-2023 09:05-0400 Respiratory rate 18 /min Priyanka Olveraley Other [facility] Other 05-03-2023 09:05-0400 SaO2% (BldA) [Mass fraction] 100 % Priyanka Olveraley Other [facility] Other 05-03-2023 09:05-0400 Systolic blood pressure 117 mm[Hg] Priyanka Olveraley Other [facility] Other 11-17-2022 11:30-0500 Body height 157.48 cm Mona Yeungault Other [facility] Other 11-17-2022 11:30-0500 Body mass index (BMI) [Ratio] 35.3 kg/m2 Mona Yeungault Other [facility] Other 11-17-2022 11:30-0500 Body temperature 98.7 [degF] Mona Mikel Other [employer] Other 11-17-2022 11:30-0500 Body weight 87.54 kg Mona Mikel Other [employer] Other 11-17-2022 11:30-0500 Respiratory rate 18 /min Mona Mikel Other [employer] Other 11-17-2022 11:30-0500 SaO2% (BldA) [Mass fraction] 98 % Mona Mikel Other [employer] Other 09-28-2022 16:30-0500 Body height 157.48 cm Mona Yeungault Other [employer] Other 09-28-2022 16:30-0500 Body mass index (BMI) [Ratio] 35.3 kg/m2 Mona Yeungault Other [employer] Other 09-28-2022 16:30-0500 Body temperature 98 [degF] Mona Yeungault Other [employer] Other 09-28-2022 16:30-0500 Body weight 87.54 kg Mona Yeungault Other [employer] Other 09-28-2022 16:30-0500 Diastolic blood pressure 79 mm[Hg] Mona Yeungault Other [employer] Other 09-28-2022 16:30-0500 Respiratory rate 18 /min Mona Morin Other [employer] Other 09-28-2022 16:30-0500 SaO2% (BldA) [Mass fraction] 98 % Mona Yeungault Other [employer] Other 09-28-2022 16:30-0500 Systolic blood pressure 130 mm[Hg] Mona Mikel Other [employer] Other 07-14-2022 15:00-0400 Body height 157.48 cm Mona Yeungault Other [employer] Other 07-14-2022 15:00-0400 Body mass index (BMI) [Ratio] 35.66 kg/m2 Mona Mikel Other [employer] Other 07-14-2022 15:00-0400 Body weight 88.45 kg Mona Morin Other [employer] Other 07-14-2022 15:00-0400 Diastolic blood pressure 89 mm[Hg] Mona Morin Other [employer] Other 07-14-2022 15:00-0400 Respiratory rate 18 /min Mona Morin Other [employer] Other 07-14-2022 15:00-0400 SaO2% (BldA) [Mass fraction] 98 % Mona Morin Other [employer] Other 07-14-2022 15:00-0400 Systolic blood pressure 145 mm[Hg] Mona Morin Other [employer] Other 06-30-2022 12:00-0400 Body height 157.48 cm Mona Morin Other [employer] Other 06-30-2022 12:00-0400 Body mass index (BMI) [Ratio] 35.48 kg/m2 Mona Morin Other [employer] Other 06-30-2022 12:00-0400 Body temperature 97.7 [degF] Mona Morin Other [employer] Other 06-30-2022 12:00-0400 Body weight 88 kg Mona Morin Other [employer] Other 06-30-2022 12:00-0400 Diastolic blood pressure 87 mm[Hg] Mona Morin Other [employer] Other 06-30-2022 12:00-0400 Respiratory rate 18 /min Mona Morin Other [employer] Other 06-30-2022 12:00-0400 SaO2% (BldA) [Mass fraction] 97 % Mona Morin Other [employer] Other 06-30-2022 12:00-0400 Systolic blood pressure 136 mm[Hg] Mona Morin Other [employer] Other 02-03-2022 11:00-0400 Body height 157.48 cm Mona Morin Other [employer] Other 02-03-2022 11:00-0400 Body mass index (BMI) [Ratio] 35.84 kg/m2 Mona Morin Other [employer] Other 02-03-2022 11:00-0400 Body temperature 98.2 [degF] Mona Morin Other [employer] Other 02-03-2022 11:00-0400 Body weight 88.91 kg Mona Morin Other [employer] Other 02-03-2022 11:00-0400 Diastolic blood pressure 96 mm[Hg] Mona Morin Other [employer] Other 02-03-2022 11:00-0400 Respiratory rate 18 /min Mona Morin Other [employer] Other 02-03-2022 11:00-0400 SaO2% (BldA) [Mass fraction] 99 % Mona Morin Other [employer] Other 02-03-2022 11:00-0400 Systolic blood pressure 157 mm[Hg] Mona Morin Other [employer] Other 08-31-2021 10:00-0500 Body height 157.48 cm Kaylie Ginty Other [employer] Other 08-31-2021 10:00-0500 Body mass index (BMI) [Ratio] 35.66 kg/m2 Kaylie Ginty Other [employer] Other 08-31-2021 10:00-0500 Body temperature 98.7 [degF] Kaylie Ginty Other [employer] Other 08-31-2021 10:00-0500 Body weight 88.45 kg Kaylie Ginty Other [employer] Other 08-31-2021 10:00-0500 Respiratory rate 18 /min Kaylie Ginty Other [employer] Other 08-31-2021 10:00-0500 SaO2% (BldA) [Mass fraction] 95 % Kaylie Ginty Other [employer] Other Encounters Encounter Date Encounter Type Care Provider Facility Start: 04-12-2024 End: 04-12-2024 ambulatory TD BERUMEN [facility] Start: 02-28-2024 End: 02-28-2024 ambulatory Montana Bergeron MD Facility: [facility] Start: 02-23-2024 End: 02-23-2024 ambulatory ELSI AICHHOLZ Not Available Start: 02-07-2024 End: 02-07-2024 ambulatory ELSI AICHHOLZ Not Available Start: 02-03-2024 End: 02-03-2024 ambulatory KRUNAL MCARTHUR Not Available Start: 01-17-2024 End: 01-17-2024 ambulatory Montana Bergeron MD Facility:[facility] Start: 01-11-2024 End: 01-11-2024 ambulatory ELSI AICHHOLZ Not Available Start: 12-24-2023 Telephone encounter Saied Gooden [facility] Start: 11-04-2023 End: 11-04-2023 ambulatory TD Brenda [facility] Start: 10-26-2023 End: 10-26-2023 ambulatory ELSI AICHHOLZ Not Available Start: 09-13-2023 End: 09-13-2023 ambulatory ELSI AICHHOLZ Not Available Start: 05-03-2023 End: 05-03-2023 ambulatory Priyanka Jones Other [facility] Other Start: 05-03-2023 Office outpatient visit 15 minutes Priyanka Jones [facility] Start: 01-22-2023 End: 01-23-2023 ambulatory MONA MORIN Facility: Start: 11-23-2022 End: 11-23-2022 ambulatory Mona Morin Other [facility] Other Start: 11-23-2022 Telephone encounter Mona hyde [facility] Start: 11-20-2022 End: 11-20-2022 ambulatory Mona Morin Other [facility] Other Start: 11-20-2022 Encounter by juan Morin [facility] [place] Start: 11-17-2022 End: 11-18-2022 ambulatory MONA MORIN [facility] Other Start: 11-17-2022 Office outpatient visit 15 minutes Mona Morin [facility] Start: 10-06-2022 End: 10-06-2022 ambulatory Monamonty Morin Other [facility] Other Start: 10-06-2022 Telephone encounter Monamonty Palmerl t [facility] Start: 09-29-2022 End: 09-29-2022 ambulatory PHYSICIAN NO [facility] Work Phone: Start: 09-29-2022 End: 09-29-2022 Departed Referred PHYSICIAN NO [facility] [place] Work Phone: Start: 09-28-2022 End: 09-28-2022 ambulatory Monamonty Morin Other [employer] Other Start: 09-28-2022 Office outpatient visit 15 minutes Monamonty Morin [facility] Start: 09-14-2022 End: 09-14-2022 ambulatory Monamonty Morin Other [employer] Other Start: 09-14-2022 Telephone encounter Monamonty Palmerl t [facility] Start: 07-14-2022 End: 07-14-2022 ambulatory Monamonty Morin Other [employer] Other Start: 07-14-2022 Office outpatient visit 15 minutes Monamonty Morin [facility] Start: 06-30-2022 End: 06-30-2022 ambulatory Mona Mikel Other [employer] Other Start: 06-30-2022 Office outpatient visit 15 minutes Mona Mikel [facility] Start: 04-02-2022 End: 04-02-2022 ambulatory Mona Mikel Other [facility] Other Start: 04-02-2022 Telephone encounter Mona Palmerl t [facility] Start: 03-31-2022 Telephone encounter Monamonty Palmerl t [facility] Start: 03-31-2022 End: 04-01-2022 ambulatory MONA MORIN [facility] Other Start: 02-03-2022 End: 02-03-2022 ambulatory Mona Morin Other [employer] Other Start: 02-03-2022 Office outpatient visit 15 minutes Mona Morin [facility] Start: 12-10-2021 End: 12-10-2021 ambulatory Mona Morin Other [employer] Other Start: 12-10-2021 Telephone encounter Monamonty Palmerl t [facility] Start: 11-10-2021 End: 11-10-2021 ambulatory Mona Morin Other [facility] Other Start: 11-10-2021 Telephone encounter Monamonty Palmerl t [facility] Start: 09-03-2021 End: 09-03-2021 ambulatory Kaylie Ginty Other [employer] Other Start: 09-03-2021 Telephone encounter Kaylie Ginty [facility] Start: 08-31-2021 End: 08-31-2021 ambulatory Kaylie Ginty Other [facility] Other Start: 08-31-2021 Office outpatient visit 15 minutes Kaylie Ginty [facility] Procedures Date Procedure Procedure Detail Performing Clinician Start: 10-11-2017 Mammography Saeid hogue MEDICAL REFERRAL COORDINATOR Start: 02-05-2017 Microscopic observat ion [Identifier] in Cervix by Cyto stain Saeid Gooden MEDICAL REFERRAL COORDINATOR Plan of Treatment Date Care Activity Detail Author Start: 05-26-2024 Adult BMI Screening Adult BMI Screen ing [facility] Start: 05-26-2024 Tobacco Screening Tobacco Screening [facility] Start: 05-28-2023 Influenza vaccination Influenza Vacc ine [facility] Start: 09-29-2022 Aerobic Culture Aerobic Culture [facility] Start: 09-29-2022 Anaerobic Culture Anaerobic Culture [facility] Start: 09-29-2022 Microscopic observat ion [Identifier] in Unspecified specimen by Gram stain Gram Stain [facility] Start: 02-06-2020 Screening for malign ant neoplasm of cervix Pap Smear [facility] Start: 10-11-2018 Screening for malign ant neoplasm of breast Mammogram [facility] Start: 12-06-1995 DTaP,Tdap and Td Vaccines (1 - Tdap) DTaP,Tdap and Td Vaccines ( - Tdap) [facility] Start: 1994 Adult BMI Follow Up Plan Adult BMI Follow Up Plan [facility] Start: 1988 Depression Screening Depression Scre ening [facility] Bacteria identified in Unspecified specimen by Aerobe culture [facility] Bacteria identified in Unspecified specimen by Anaerobe culture [facility] Immunizations Immunization Date Immunization Notes Care Provider Fa tooty 10-01-2020 influenza virus vacc ine, unspecified formulation Saeid Gooden [facility] Payers Date Payer Category Payer Medicaid [facility] [employer] [id number] 2022-Present [address] [place] [address] [id number] 2022 Medicaid [id number] 2017 Unknown [id number] 1976 Unknown [id number] 2..840.1.526933.3.579.2.5 93 1976 Unknown [id number] 2..840.1.129683.3.579.2.5 93 1976 Unknown [id number] 2.16.840.1.968569.3.579.2.5 93 1976 Unknown [id number] 2.16.840.1.633918.3.579.2.1 259 1976 Unknown [id number] 2.16.840.1.166422.3.579.2.1 259 1976 Unknown [id number] 2.16.840.1.085937.3.579.2.1 259 1976 Unknown [id number] 2.16.840.1.895552.3.579.2.1 259 1976 Unknown [id number] 2.16.840.1.542693.3.579.2.1 259 1976 Unknown [id number] 2.16.840.1.857734.3.579.2.1 259 1976 Unknown [id number] 2.16.840.1.485126.3.579.2.1 96 1976 Unknown [id number] 2.16.840.1.078741.3.579.2.1 96 1976 Unknown [id number] 2.16.840.1.209816.3.579.2.1 286 1976 Unknown [id number] 2.16.840.1.119319.3.579.2.1 286 1959 Unknown [id number] 2.16.840.1.401639.19 1959 Unknown [id number] Blue Cross Blue [facility] [id number] Self-pay Self Pay [id number] Unknown [id number] [id number] Social History Date Type Detail Facility Unknown if ever smoked [facility] Other Start: 11-06-2020 End: 05-26-2023 Sex Assigned At [facility] [employer] Other Start: 1975 Sex Assigned At Female F [facility] Start: 08-23-2017 Tobacco smoking stat us NHIS Never smoked tobacco [facility] Start: 08-23-2017 Tobacco use and exposure Smokeless tobacco non-user [facility] Start: 05-26-2023 Alcohol intake Current non-dr moss bleacher of alcohol (finding) [facility] Start: 11-06-2020 End: 05-26-[address] of [address] [facility] Childcare Unknown [facility] Start: 1975 Sex Assigned At Not on file P [facility] Medical Equipment Procedure Code Equipment [...] leave a message. documented in this encounter [facility] 12-24-2023 Telephone encount er Note Attempted to contact patient to reschedule appointment on 05/31/[address] Verdugo is out of the office. No Vm set up to leave a message. [facility] 05-03-2023 Evaluation note Encounter Date Diagnosis [...] fever. Patient/Parent verbalized understanding of treatment plan. [facility] Other 02-21-2023 Evaluation note* Encounter Date Diagnosis [...] weeks for the cough to go away [facility] Other 01-02-2023 Evaluation note* Encounter Date Diagnosis [...] obtained for C&S. Will call with results. [facility] Other 12-19-2022 Evaluation note* Encounter Date Diagnosis Assessment Notes Treatment Notes Treatment Clinical Notes Aug, Gastroesophageal ref lux disease, unspecified whether esophagitis present (ICD-10 - K21.9) Aug, PCOS (polycystic ovarian syndrome) (ICD-10 - E28.2) [facility] Other 10-18-2022 Evaluation note* Encounter Date Diagnosis Assessment Notes Treatment Notes Treatment Clinical Notes Jun, Fibromyalgia (ICD-10 - M79.7) Continue current treatment regimen. Printed off script to use as needed [facility] Other 10-04-2022 Evaluation note* Encounter Date Diagnosis Assessment Notes Treatment Notes Treatment Clinical Notes Jun, Primary hypertension (ICD-10 - I10) Jun, SJ (generalized anxiety disorder) (ICD-10 - F41.1) [facility] Other 07-07-2022 Evaluation note* Encounter Date Diagnosis Assessment Notes Treatment Notes Treatment Clinical Notes Mar, Right hip pain (ICD-10 - M25.551) [facility] Other 05-10-2022 Evaluation note* Encounter Date Diagnosis Assessment Notes Treatment Notes Treatment Clinical Notes January, Gastroesophageal ref lux disease, unspecified whether esophagitis present (ICD-10 - K21.9) Continue to take medication as directed. January, PCOS (polycystic ovarian syndrome) (ICD-10 - E28.2) Take medication as directed with food [facility] Other 03-16-2022 Evaluation note* Encounter Date Diagnosis Assessment Notes Treatment Notes Treatment Clinical Notes Nov, Sacral back pain (ICD-10 - M53.3) [facility] Other 02-14-2022 Evaluation note* Encounter Date Diagnosis Assessment Notes Treatment Notes Treatment Clinical Notes Oct, Gastroesophageal ref lux disease, unspecified whether esophagitis present (ICD-10 - K21.9) [facility] Other 02-14-2022 Evaluation note* Encounter Date Diagnosis Assessment Notes Treatment Notes Treatment Clinical Notes Oct, Sacral back pain (ICD-10 - M53.3) [facility] Other 2021 Evaluation note* Encounter Date Diagnosis [...] in writting by [facility] document. [employer] Other Evaluation noteNo InformationNort [employer] Other Evaluation noteNo assessment information available [facility] Work Phone: History general Narrative - Reported* Type Description Date Medical History asthma Medical History pcos Medical History Fibromyalgia Medical History Hypothyroidism - euthyroid Medical History chronic fatigue Surgical History gall bladder Surgical History vein removed in bilaterally Surgical History gastric sleeve Hospitalization History see above Hospitalization History CHILD X'S 5 [facility] Other InstructionsNot on filedocumented in this encounter [facility] Mantis Deposition SystemReason for visit NarrativeDermatology Referral Update [facility] Other Summary Purpose Family History No Family [...] section and content) DATE CREATED AUTHOR 03/27/2022 [facility] DATE CREATED AUTHOR AUTHOR'S ORGANIZ ATION 01/29/2023 [facility] pital DATE CREATED AUTHOR AUTHOR'S ORGANIZ ATION 02/24/2024 [facility] EPIC DATE CREATED AUTHOR AUTHOR'S ORGANIZ ATION 03/07/2024 [facility] DATE CREATED AUTHOR AUTHOR'S ORGANIZ ATION 04/16/2024 [facility] Care Teams (unrecognized sec tion and content) Team Status: Inactive Member Role Status Dates PHYSICIAN NO FAMILY Primary Care Provider Active CHRISTIANO Jha Attending Provider Active Team Status: Active Member Role Status Dates PHYSICIAN NO FAMILY Primary Care Provider Active 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 [facility] provides no warranty or guarantee of the accuracy or completeness of information in this document.
[2024-05-26 14:22] LABS: Thyroid Stimulating Hormone 3.022 uIU/mL (0.358-3.740)
[2024-05-26 14:44] LABS: HCG Quantitative <1 mIU/mL
[2024-05-26 15:00] LABS: Free T4 0.82 ng/dL (0.76-1.46)
[2024-05-27 08:12] LABS: Prolactin 12.9 ng/mL (4.8-33.4)
== END 2024-05-26 13:17 | disposition home or self-care (01) ==
LOC: LAB 13:17
PROVIDERS: PCP Nurse Practitioner; Visit Provider Nurse Practitioner
DX: E03.9 Hypothyroidism, unspecified (principal); N91.2 Amenorrhea, unspecified
CPT/HCPCS: 36415; 84146; 84439; 84443; 84702

== ENCOUNTER 2024-06-07 09:01 | Outpatient (OUT) | payer BC, MEDICAID, SELFPAY ==
--- NOTE | 2024-06-07 08:07 | VEINCLINIC_ITS ---
Vital Signs 06/07/24 09:15 06/07/24 09:52 Height 5 ft Weight 85.729 kg BP 110/78 BP Location Right Brachial BP Position Sitting BP Cuff Size Adult BP Source Manual Cuff Respiration 16 Pulse 92 H Pulse Source Monitor Pulse Oximetry (%) 96 Oxygen Delivery Method Room Air Review of Systems ROS Narrative Lionel Wood MD personally performed the services described in this documentation, as scribed by Garrett Arellano RN in my presence and it is both accurate and complete. I, Garrett Arellano RN, am scribing for, and in the presence of, Dr. Lionel Morse and in the presence of the patient. Status of ROS 10 or more systems reviewed and unremark able except as noted in history and below Cardiovascular Reports: edema Neurological Reports: weakness in extremities [facility] Medical History (Updated 01/17/24 @ 13:05 by Montana Bergeron MD) Varicose vein of leg ?I83.90 - Asymptomatic varicose veins of unspecified lower extremity (ICD-10) Diabetes ?E11.9 - Type 2 diabetes mellitus without complications (ICD-10) PCOS (polycystic ovarian syndrome) ?E28.2 - Polycystic ovarian syndrome (ICD-10) Migraine ?G43.909 - Migraine, unspecified, not intractable, without status migrainosus (ICD-10) Hyperlipidemia ?E78.5 - Hyperlipidemia, unspecified (ICD-10) Hypothyroid ?E03.9 - Hypothyroidism, unspecified (ICD-10) HTN (hypertension) ?I10 - Essential (primary) hypertension (ICD-10) History of gastroesophageal reflux (GERD) ?Z87.19 - Personal history of other diseases of the digestive system (ICD-10) 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, unspecified (ICD-10) Depression ?F32.A - Depression, unspecified (ICD-10) Chronic sinusitis ?J32.9 - Chronic sinusitis, unspecified (ICD-10) Chronic fatigue syndrome with fibromyalgia ?G93.32 - Myalgic encephalomyelitis/chronic fatigue syndrome (ICD-10) ?M79.7 - Fibromyalgia (ICD-10) Surgical History (Updated 06/07/24 @ 09:55 by Garrett Arellano) Status post laser ablation of incompetent vein ?Z98.890 - Other specified postprocedural states (ICD-10) History of vein stripping ?Z98.890 - Other specified postprocedural states (ICD-10) H/O gastric sleeve ?Z90.3 - Acquired absence of stomach [part of] (ICD-10) Hx of cholecystectomy ?Z90.49 - Acquired absence of other specified parts of digestive tract (ICD- 10) Meds Home Medications and Allergies Home Medications ?Medication ?Instructions ?Recorded ?Confirmed ?Type atorvastatin 10 mg tablet 10 mg PO QAM 01/11/24 02/28/24 History cetirizine 10 mg tablet 10 mg PO DAILY 01/11/24 02/28/24 History levothyroxine 50 mcg tablet 50 mcg PO QAM 01/11/24 02/28/24 History lisinopril 2.5 mg tablet 2.5 mg PO DAILY 01/11/24 02/28/24 History minocycline 100 mg capsule 100 mg PO QPM 01/11/24 02/28/24 History omeprazole 20 mg capsule,delayed 20 mg PO DAILY 01/11/24 02/28/24 History release ropinirole 0.25 mg tablet 0.25 mg PO QPM 01/11/24 02/28/24 History semaglutide 1 mg/dose (4 mg/3 mL) 1 mg subcut QWEEK 01/11/24 02/28/24 History subcutaneous pen injector (Ozempic) sertraline 100 mg tablet 200 mg PO QAM 01/11/24 02/28/24 History tizanidine 4 mg tablet 8 mg PO DAILY 01/11/24 02/28/24 History magnesium 200 mg tablet 800 mg PO DAILY 03/08/24 03/08/24 History Allergies Allergy/AdvReac Type Severity Reaction Status Date / Time No Known Drug Allergies Allergy Verified 02/28/24 09:38 Exam Narrative Exam Narrative: Lionel Wood MD personally performed the services described in this documentation, as scribed by Garrett Arellano RN in my presence and it is both accurate and complete. Garrett Wood RN, am scribing for, and in the presence of, Dr. Lionel Morse and in the presence of the patient. Constitutional Documenting provider has reviewed patient's vital signs: yes Common normals: oriented x3 Cardio Peripheral pulses: posterior tibial pulses present and dorsalis pedis pulses present Extremity Common normals: normal capillary refill General: edema Right lower extremity: lower leg Right lower leg: inspection and palpation Left lower extremity: lower leg Left lower leg: inspection and palpation Neuro Common normals: oriented x3 Assessment and Plan Assessment and Plan (1) Varicose vein of leg: Plan f/u evaluation with physician along with right leg limited u/s Lionel Wood MD personally performed the services described in this documentation, as scribed by Garrett Arellano RN in my presence and it is both accurate and complete. Garrett Wood RN, am scribing for, and in the presence of, Dr. Lionel Morse and in the presence of the patient. Procedures Procedure Instructions Procedures right leg microfoam chemical ablation/Varithena: Risks and benefits of the procedure were discussed at length and informed written consent was obtained.? Time-out procedure was performed and the correct patient and procedure were confirmed.? Staff present during time-out: Garrett Arellano RN and Lionel Morse MD.? Patient prepped and procedure performed in usual sterile fashion.? Patient was placed in Trendelenburg prior to Polidocanol/Varithena injections. Sclerosing Agent:??13 cc 1% Polidocanol/Varithena Site Injected: Right lecc varithena administered in to distal GSV 4cc varithena administered in to a 4mm varicose vein lateral right knee 3cc varithena administered in to a 4mm varicose vein lateral right thigh Number of Injections:? 3 The patient tolerated the procedure well without complication.? Hemostasis was obtained and thigh-high compression stocking was applied with foam pads.? Instructed patient to wear stocking for at least 96 hours and sleep with it and only remove for showering.? The patient was instructed to? wear stocking for 2 weeks.? Patient verbalizes understanding and states they will comply.? Patient was given post-procedure instructions. Patient was discharged in good condition.? Scheduled to undergo limited venous ultrasound and? exam on 06/14/2024. Lionel Wood MD personally performed the services described in this documentation, as scribed by Garrett Arellano RN in my presence and it is both accurate and complete. Garrett Wood RN, am scribing for, and in the presence of, Dr. Lionel Morse and in the presence of the patient.
--- NOTE | 2024-06-07 08:16 | P.DS_ITS ---
Discharge Plan Discharge Disposition: Home, Self-Care Outpatient Diagnostics: [facility] Facility EST LMTD (Routine) Timeframe: 2 Weeks Facility: [facility] - Location: [facility] Ordered By: Lionel Morse VC EXT Venous RT LMTD (Routine) Timeframe: 2 Weeks Facility: [facility] - Location: [facility] Center Ordered By: Lionel Morse Follow Up Appointments: 06/14/2024 Plan of Treatment: f/u evaluation with physician along with right leg limited u/s Patient Instructions: Polidocanol (By injection) ([place]) Print Language: Somali Discharge Date/Time: 06/07/24 09:54
--- NOTE | 2024-06-07 09:03 | VEIN_ITS ---
[address] [address] Patient Name: JONNATHAN SEPULVEDA MRN: [id number] date: 1975 Sex: F Assigned Patient Location: Current Patient Location: Accession/Order Number: [id number] Exam Date: 06/07/2024 09:03 Report Date: 06/07/2024 10:39 At the request of: TRE VALODVINOS Procedure: VC INJ Foam Sclerosant WUS MUSIC SOUND LIGHT TECHNICIAN PROCEDURE: VC INJ Foam Sclerosant WUS MUSIC SOUND LIGHT TECHNICIAN], right leg COMPARISON: None. HISTORY: I83.813 Bilateral leg painful varicose veins Pre-operative Diagnosis: CEAP class C3 venous insufficiency with pain, tenderness, edema and incompetent right saphenous and varicose vein(s), chronic venous insufficiency right leg secondary to venous incompetence Post-operative Diagnosis: CEAP class C3 venous insufficiency with pain, tenderness, edema and incompetent right saphenous and varicose vein(s), chronic venous insufficiency right leg secondary to venous incompetence Procedure Performed: 1. Ultrasound-guided microfoam chemical ablation with Varithenaregistered 2. Intraoperative ultrasound guidance Anesthesia: None Indications for Procedure: 48-year-old female who presents with a long history of lower extremity pain swelling and varicose veins. The patient failed conservative medical therapy including medical compression stockings, exercise and analgesics. Prior procedures include . Multiple incompetent varicosities of the right leg. Duplex scan showed reflux and enlarged diameters up to 5 mm. The patient underwent informed consent including management options where the complications of infection, bleeding, pain, and skin injury were discussed. Particular attention was spent discussing thrombus extension and deep vein thrombosis as well as the possibility of pulmonary embolus and treatment with oral or injectable blood thinners. Procedure: The patient walked to the procedure room. All applicable staff donned appropriate apparel. A procedure timeout was performed to confirm correct patient, correct extremity, correct procedure, and correct room set-up including presence of all applicable supplies, devices, and drugs. A duplex ultrasound, performed by myself confirmed the location and incompetence of branch saphenous varicosities and their course was marked on the skin together with the dilated tributaries. The extent of treatment of the vein and the associated varicosities was determined through ultrasound mapping. The skin was prepped and then punctured with a butterfly needle and advanced under ultrasound guidance. The Varithenaregistered canister was activated and the canister was primed and purged as required in the instructions for use. Varithenaregistered was drawn into a sterile syringe. Following injections were made: 5 cc injected into an incompetent patent distal right great saphenous vein measuring 5 mm 4 cc injected into a 4 mm varicose vein lateral right knee 3 cc injected into a 4 mm varicose vein anterior right thigh Varithenaregistered was slowly administered at 0.5-1.0 cc/second with close observation by ultrasound of its course in the vessels. Total volume utilized was: 12 cc. Following administration of Varithenaregistered the leg was elevated and the patient was asked to repeatedly dorsiflex the ankle to limit flow of Varithenaregistered into perforating veins. Once appropriate spasm had been confirmed in the treated veins, the vascular catheter was removed from the leg and light pressure was applied over the puncture site for hemostasis. The common femoral and deep superficial veins were then evaluated for flow and compressibility prior to dressing placement. The lower extremity was kept elevated at 45 degrees above the horizontal and cording material was applied over the saphenous segments and tributaries to allow for eccentric compression over the target vessels including the targeted saphenous vein(s). A multilayer dressing was applied consisting of foam pads, coban and thigh-high 20-30 mm Hg compression elastic support hose were placed on the patient. The leg was lowered only after compression had been applied and the patient was immediately ambulatory. The patient ambulated 10 minutes under supervision and was without apparent concerns at time of release. Post-care instructions include advising patient to keep post-treatment bandages in place and dry for 48 hours, avoid extended periods of inactivity, avoid heavy exercise for one week, wear compression stockings on the treated leg continuously for two weeks, to walk daily for 10 minutes over the next month. The patient was instructed to take an anti-inflammatory medicine as needed and to follow up for color duplex scan of the Saphenous veins, the treated branch saphenous varicosities, the adjacent deep veins, and additional treatment within 7 days. PERSONNEL: Garrett Arellano RN Electronically authenticated by: TRE VALDOVINOS Date: 06/07/2024 10:39
[2024-06-07 09:15] VITALS: BP 110/78; PULSE 92; O2SAT 96
--- OUTSIDE RECORDS SUMMARY | 2024-06-07 09:23 | XMS_ITS | CCD ---
Author Organization [facility] Care Team Providers Care Mixer Machine Feeder Name Role Phone Kaylie Echeverria Unavailable Mona Morin Unavailable NO FAMILY, PHYSICIAN Primary Care Provider Unava ilCHRISTIANO Lazaro Attending Provider MONA MORIN Primary Care Unavailable MISC, DR ELIAS Attending Unavailable MISC, DR ELIAS Admitting Unavailable AICHHOLZ, INTELLIGENCE MANAGER ELSI Consulting Unavailable MONA MORIN Consulting Unavailable MONA MORIN Primary Care Unavailable MONA MORIN Admitting Unavailable MONA MORIN Attending Unavailable MONA MORIN Primary Care Unavailable MONA MORIN Admitting Unavailable MONA MORIN Attending Unavailable MONA MORIN Consulting Unavailable Priyanka Jones Unavailable Mikel BUSINESS SUPPORT SPECIALIST-Mona KENNEDY Primary Care Provide r ELSI SUAREZ Attending Unavailable ELSI SUAREZ Attending Unavailable ELSI SUAREZ Attending Unavailable KRUNAL MCARTHUR Attending Unavailable AICHHOLShannan, ELSI Attending Unavailable TIMURHARGELIA, ELSI Attending Unavailable Elyssa MCBRIDE, Montnaa Mosqueda Attending Unavailable Elyssa MCBRIDE, [place] Mosqueda Attending Unavailable TD BERUMEN Attending Unavailable MONA MORIN Referring Unavailable MONA MORIN Primary Care Unavailable TD BERUMEN Attending Unavailable MONA MORIN Referring Unavailable MIKEL MONA Primary Care Unavailable Allergies Allergy Classification Reported Allergen(s) Allergy Type Date of Onset Reaction(s) Facility (5 sources) Cephalexin Drug Allergy rash [facility] Other (12 sources) Cephalexin Drug Allergy rash [employer] Other (1 source) Sulfamethoxazole / Trimethoprim Drug Allergy 3 [facility] Repository Medications Current Medications Medication Drug Class(es) Dates Sig (Normalized) Sig (Original) [id number] 200 actuat albuterol 0.09 mg/actuat metered dose [...] oral solution (2 sources) alpha-Adrenergic Agonist, Uncompetitive X-cvfpom-D-aspartate Receptor Antagonist, Sigma-1 Agonist Start: 08-31-2021 take [...] pyogenes Org specific cx Ql (Throat) Negative [facility] [employer] Other Quick Strep [facility] [employer] Other INSULINon 01-26-2023 Insulin 21.3 uIU/mL Normal 2.6-24.9 [facility] Comment on above: Performed By: #### I NSULIN #### [facility] Laboratory [address] [place] [address] Dr. Yvan Manzano CORTISOLon 01-23-2023 Cortisol 11.2 ug/dL Normal 6.2-19.4 [facility] Comment on above: Result Comment: [place] Note: The reference interval and flagging for this test is for an AM collection. If this is a PM collection please use: Cortisol PM: 2.3-11.9 [facility] also offers: 420607: Cortisol- AM 294269: Cortisol- PM Performed By: #### C BC #### [facility] Laboratory [address] [place] [address] Dr. Yvan Manzano CBC AUTO DIFFon 01-22-2023 BASO # 0.1 103/ul Normal 0.0-0.1 [facility] Comment on above: Performed By: #### C BC #### [facility] Laboratory [address] [place] [address] Dr. Yvan Manzano Basophils/100 WBC (Bld) 0.9 % Normal 0.2-2.0 [facility] Comment on above: Performed By: #### C BC #### [facility] Laboratory [address] [place] [address] Dr. Yvan Manzano EO # 0.3 103/ul Normal 0.0-0.7 [facility] Comment on above: Performed By: #### C BC #### [facility] Laboratory [address] [place] [address] Dr. Yvan Manzano Eosinophils/100 WBC (Bld) 5.7 % Normal 0.9-7.0 [facility] Comment on above: Performed By: #### C BC #### [facility] Laboratory [address] [place] [address] Dr. Yvan Manzano Erythrocyte distribution width (RBC) [Ratio] 14.6 % Normal 11.0-15.0 [facility] Comment on above: Performed By: #### C BC #### [facility] [address] [place] [address] Dr. Yvan Manzano Hematocrit (Bld) [Volume fraction] 36.8 % Normal 36.0-48.0 [facility] Comment on above: Performed By: #### C BC #### [facility] Laboratory [address] [place] [address] Dr. Yvan Manzano Hemoglobin (Bld) [Mass/Vol] 11.4 g/dL Critically low 12.0-16.0 [facility] Comment on above: Performed By: #### C BC #### [facility] Laboratory [address] [place] [address] Dr. Yvan Manzano IG # 0.02 10e3/ul Normal 0.00-0.03 [facility] Comment on above: Performed By: #### C BC #### [facility] Laboratory [address] [place] [address] Dr. Yvan Manzano IG % 0.3 % Normal 0.0-0.5 [facility] Comment on above: Performed By: #### C BC #### [facility] [address] [place] [address] Dr. Yvan Manzano LYMPH # 1.5 103/ul Normal 1.2-3.8 [facility] Comment on above: Performed By: #### C BC #### [facility] Laboratory [address] [place] [address] Dr. Yvan Manzano Lymphocytes/100 WBC (Bld) 25.3 % Normal 20.5-60.0 [facility] Comment on above: Performed By: #### C BC #### [facility] [address] [place] [address] Dr. Yvan Manzano MANUAL DIFF REQ NO Normal [facility] Comment on above: Performed By: #### C BC #### [facility] Laboratory [address] [place] [address] Dr. Yvan Manzano MCH (RBC) [Entitic mass] 25.2 pg Critically low 26.7-34.0 [facility] Comment on above: Performed By: #### C BC #### [facility] Laboratory [address] [place] [address] Dr. Yvan Manzano MCHC (RBC) [Mass/Vol] 31.0 g/dL Normal 29.9-35.2 [facility] Comment on above: Performed By: #### C BC #### [facility] Laboratory [address] [place] [address] Dr. Yvan Manzano MCV (RBC) [Entitic vol] 81.4 fL Normal 81.0-99.0 [facility] Comment on above: Performed By: #### C BC #### [facility] Laboratory [address] [place] [address] Dr. Yvan Manzano MONO # 0.4 103/ul Normal 0.3-0.8 [facility] Comment on above: Performed By: #### C BC #### [facility] [address] [place] [address] Dr. Yvan Manzano Monocytes/100 WBC (Bld) 7.7 % Normal 1.7-12.0 [facility] Comment on above: Performed By: #### C BC #### [facility] Laboratory [address] [place] [address] Dr. Yvan Manzano NEUT # 3.5 103/ul Normal 1.4-6.5 [facility] Comment on above: Performed By: #### C BC #### [facility] Laboratory [address] [place] [address] Dr. Yvan Manzano Neutrophils/100 WBC (Bld) 60.1 % Normal 43.0-75.0 [facility] Comment on above: Performed By: #### C BC #### [facility] Laboratory [address] [place] [address] Dr. Yvan Manzano Platelet mean volume (Bld) [Entitic vol] 8.8 fL Critically low 9.5-13.5 [facility] Comment on above: Performed By: #### C BC #### [facility] Laboratory [address] [address] [address] Yvan Manzano PLT 347 103/ul Normal 150-450 [facility] Comment on above: Performed By: #### C BC #### [facility] [address] [place] [address] Dr. Yvan Manzano RBC 4.52 106/ul Normal 4.20-5.40 [facility] Comment on above: Performed By: #### C BC #### [facility] [address] [place] [address] Dr. Yvan Manzano WBC 5.7 103/ul Normal 4.0-11.0 [facility] Comment on above: Performed By: #### C BC #### [facility] Laboratory [address] [place] [address] Dr. Yvan Manzano FREE T4on 01-22-2023 Free T4 [Mass/Vol] 0.84 ng/dL Normal 0.76-1.46 [facility] Comment on above: Performed By: #### F T4 #### [facility] Laboratory [address] [place] [address] Dr. Yvan Manzano LIPID PROFILEon 01-22-2023 CHOL-HDL RATIO NORM SEE BELOW Normal [facility] Comment on above: Result Comment: 3.3 - 4.4 LOW RISK 4.4 - 7.1 AVERAGE RISK 7.1 - 11.0 MODERATE RISK >11.0 HIGH RISK Performed By: #### T SH, LIPID #### [facility] [address] [place] [address] Dr. Yvan Manzano Cholesterol [Mass/Vol] 264 mg/dL Critically high <=200 [facility] Comment on above: Performed By: #### T SH, LIPID #### [facility] [address] [place] [address] Dr. Yvan Manzano Cholesterol in HDL [Mass/Vol] 52 mg/dL Normal 40-60 [facility] Comment on above: Performed By: #### T SH, LIPID #### [facility] [address] [place] [address] Dr. Yvan Manzano Cholesterol in LDL [Mass/Vol] 173.6 mg/dL Normal [facility] Comment on above: Performed By: #### T SH, LIPID #### [facility] [address] [address] [address] Yvan Manzano Cholesterol.total/Ch olesterol in HDL [Mass ratio] 5.1 {ratio} Normal [facility] Comment on above: Performed By: #### T SH, LIPID #### [facility] [address] [place] [address] Dr. Yvan Manzano HDL NORMAL > or = 60 mg/dl - LOW CARDIOVASCULAR RISK <40 mg/dl - HIGH CARDIOVASCULAR RISK Normal [facility] Comment on above: Performed By: #### T SH, LIPID #### [facility] [address] [address] [address] Yvan Manzano LDL CALC NORMAL SEE BELOW Normal [facility] Comment on above: Result Comment: <100 mg/dl OPTIMAL 100 - 129 mg/dl NEAR OR ABOVE OPTIMAL 130 - 159 mg/dl BORDERLINE HIGH 160 - 189 mg/dl HIGH >190 mg/dl VERY HIGH Performed By: #### T SH, LIPID #### [facility] [address] [place] [address] Dr. Yvan Manzano Triglyceride [Mass/Vol] 192 mg/dL Critically high <=150 [facility] Comment on above: Performed By: #### T SH, LIPID #### [facility] [address] [place] [address] Dr. Yvan Manzano VLDL CALC 38.4 mg/dL Normal [facility] Comment on above: Performed By: #### T SH, LIPID #### [facility] [address] [place] [address] Dr. Yvan Manzano TSHon 01-22-2023 TSH 5.749 uIU/mL Critically high 0.358-3.740 [facility] Comment on above: Performed By: #### T SH, LIPID #### [facility] [address] [place] [address] Dr. Yvan Manzano GLYCOHEMOGLOBIN A1Con 2022 ADA RECOMMENDATION SEE BELOW Normal [facility] Comment on above: Result Comment: ADA RECOMMENDED LIMIT 4.0 - 6.0 ADA THERAPEUTIC TARGET < 7.0 ACTION SUGGESTED > 7.0 Performed By: #### A 1C #### [facility] [address] [place] [address] Dr. Yvan Manzano Glucose [Mass/Vol] 137 mg/dL Normal [facility] Comment on above: Performed By: #### A 1C #### [facility] [address] [place] [address] Dr. Yvan Manzano HbA1c (Bld) [Mass fraction] 6.4 % Critically high 4.5-6.2 [facility] Comment on above: Performed By: #### A 1C #### [facility] [address] [place] [address] Dr. Yvan Manzano PROF 14(COMP METB)on 023 Albumin [Mass/Vol] 3.4 g/dL Normal 3.4-5.0 [facility] Comment on above: Performed By: #### C MP #### [facility] [address] [place] [address] Dr. Yvan Manzano Albumin/Globulin [Mass ratio] 0.9 {ratio} Normal [facility] Comment on above: Performed By: #### C MP #### [facility] [address] [place] [address] Dr. Yvan Manzano ALP [Catalytic activity/Vol] 74 U/L Normal 46-116 [facility] Comment on above: Performed By: #### C MP #### [facility] [address] [place] [address] Dr. Yvan Manzano ALT [Catalytic activity/Vol] 25 U/L Normal 14-59 [facility] Comment on above: Performed By: #### C MP #### [facility] [address] [place] [address] Dr. Yvan Manzano Anion gap [Moles/Vol] 9.4 mmol/L Normal [facility] Comment on above: Performed By: #### C MP #### [facility] [address] [place] [address] Dr. Yvan Manzano AST [Catalytic activity/Vol] 17 U/L Normal 15-37 [facility] Comment on above: Performed By: #### C MP #### [facility] [address] [address] [address] Yvan Manzano Bilirubin [Mass/Vol] 0.1 mg/dL Critically low 0.2-1.0 [facility] Comment on above: Performed By: #### C MP #### [facility] [address] [address] [address] Yvan Manzano Calcium [Mass/Vol] 9.2 mg/dL Normal 8.5-10.1 [facility] Comment on above: Performed By: #### C MP #### [facility] [address] [address] [address] Yvan Manzano Chloride [Moles/Vol] 101 mmol/L Normal 98-107 [facility] Comment on above: Performed By: #### C MP #### [facility] [address] [place] [address] Dr. Yvan Manzano CO2 [Moles/Vol] 30.4 mmol/L Normal 21.0-32.0 [facility] Comment on above: Performed By: #### C MP #### [facility] [address] [address] [address] Yvan Manzano Creatinine [Mass/Vol] 0.71 mg/dL Normal 0.55-1.02 [facility] Comment on above: Performed By: #### C MP #### [facility] [address] [place] [address] Dr. Yvan Manzano EGFR-AF CYMRAES >60 Normal >=60 [facility] Comment on above: Performed By: #### C MP #### [facility] [address] [address] [address] Yvan Manzano EGFR-NON AF CYMRAES >60 Normal >=60 [facility] Comment on above: Performed By: #### C MP #### [facility] [address] [place] [address] Dr. Yvan Manzano Globulin (S) [Mass/Vol] 4.0 g/dL Normal [facility] Comment on above: Performed By: #### C MP #### [facility] [address] [place] [address] Dr. Yvan Manzano Glucose [Mass/Vol] 138 mg/dL Critically high 74-[address] [facility] Comment on above: Performed By: #### C MP #### [facility] [address] [address] [address] Yvan Manzano Potassium [Moles/Vol] 3.8 mmol/L Normal 3.5-5.1 [facility] Comment on above: Performed By: #### C MP #### [facility] [address] [address] [address] Yvan Manzano Protein [Mass/Vol] 7.4 g/dL Normal 6.4-8.2 [facility] Comment on above: Performed By: #### C MP #### [facility] [address] [address] [address] Yvan Manzano Sodium [Moles/Vol] 137 mmol/L Normal 136-145 [facility] Comment on above: Performed By: #### C MP #### [facility] [address] [address] [address] Yvan Manzano Urea nitrogen [Mass/Vol] 13.0 mg/dL Normal 7.0-18.0 [facility] Comment on above: Performed By: #### C MP #### [facility] [address] [address] [address] Yvan Manzano Urea nitrogen/Creatinine [Mass ratio] 18.3 mg/mg Normal [facility] Comment on above: Performed By: #### C MP #### [facility] [address] [address] [address] Yvan Manzano LIPID PROFILEon 03-31-2022 CHOL-HDL RATIO NORM SEE BELOW Normal [facility] Comment on above: Result Comment: 3.3 - 4.4 LOW RISK 4.4 - 7.1 AVERAGE RISK 7.1 - 11.0 MODERATE RISK >11.0 HIGH RISK Performed By: #### C MP, LIPID #### [facility] [address] [place] [address] Dr. Yvan Manzano Cholesterol [Mass/Vol] 229 mg/dL Critically high <=200 [facility] Comment on above: Performed By: #### C MP, LIPID #### [facility] [address] [address] [address] Yvan Manzano Cholesterol in HDL [Mass/Vol] 51 mg/dL Normal 40-60 [facility] Comment on above: Performed By: #### C MP, LIPID #### [facility] [address] [address] [address] Yvan Manzano Cholesterol in LDL [Mass/Vol] 150.4 mg/dL Normal [facility] Comment on above: Performed By: #### C MP, LIPID #### [facility] [address] [address] [address] Yvan Manzano Cholesterol.total/Ch olesterol in HDL [Mass ratio] 4.5 {ratio} Normal [facility] Comment on above: Performed By: #### C MP, LIPID #### [facility] [address] [place] [address] Dr. Yvan Manzano HDL NORMAL > or = 60 mg/dl - LOW CARDIOVASCULAR RISK <40 mg/dl - HIGH CARDIOVASCULAR RISK Normal [facility] Comment on above: Performed By: #### C MP, LIPID #### [facility] [address] [address] [address] Yvan Manzano LDL CALC NORMAL SEE BELOW Normal [facility] Comment on above: Result Comment: <100 mg/dl OPTIMAL 100 - 129 mg/dl NEAR OR ABOVE OPTIMAL 130 - 159 mg/dl BORDERLINE HIGH 160 - 189 mg/dl HIGH >190 mg/dl VERY HIGH Performed By: #### C MP, LIPID #### [facility] [address] [address] [address] Yvan Manzano Triglyceride [Mass/Vol] 138 mg/dL Normal <=150 [facility] Comment on above: Performed By: #### C MP, LIPID #### [facility] [address] [place] [address] Dr. Yvan Manzano VLDL CALC 27.6 mg/dL Normal [facility] Comment on above: Performed By: #### C MP, LIPID #### [facility] [address] [address] [address] Yvan Manzano MICROALB CREAT RATIO RANDOMo n 03-31-2022 mALB 1.4 mg/L Normal <=30.0 [facility] Comment on above: Performed By: #### M CRR #### [facility] [address] [address] [address] Yvan CARABALLO CR RATIO 6.0 mg/g Normal 0.0-29.9 [facility] Comment on above: Performed By: #### M CRR #### [facility] [address] [address] [address] Yvan Manzano MALB CR RATIO RANGE SEE BELOW Normal [facility] Comment on above: Result Comment: NO M ICROALBUMINURIA 0-29 MG/G CLINICAL MICROALBUMINURIA 30-300 MG/G MACROALBUMINURIA >300 MG/G Performed By: #### M CRR #### [facility] [address] [place] [address] Dr. Yvan Manzano URINE CREAT 232.88 mg/dL Normal 20.00-300.00 [facility] Comment on above: Performed By: #### M CRR #### [facility] [address] [place] [address] Dr. Yvan Manzano PROF 14(COMP METB)on 022 Albumin [Mass/Vol] 3.6 g/dL Normal 3.4-5.0 [facility] Comment on above: Performed By: #### C MP, LIPID #### [facility] [address] [place] [address] Dr. Yvan Manzano Albumin/Globulin [Mass ratio] 0.9 {ratio} Normal [facility] Comment on above: Performed By: #### C MP, LIPID #### [facility] [address] [place] [address] Dr. Yvan Manzano ALP [Catalytic activity/Vol] 63 U/L Normal 46-116 [facility] Comment on above: Performed By: #### C MP, LIPID #### [facility] [address] [address] [address] Yvan Manzano ALT [Catalytic activity/Vol] 33 U/L Normal 14-59 [facility] Comment on above: Performed By: #### C MP, LIPID #### [facility] [address] [address] [address] Yvan Manzano Anion gap [Moles/Vol] 11.7 mmol/L Normal [facility] Comment on above: Performed By: #### C MP, LIPID #### [facility] [address] [address] [address] Yvan Manzano AST [Catalytic activity/Vol] 23 U/L Normal 15-37 [facility] Comment on above: Performed By: #### C MP, LIPID #### [facility] [address] [address] [address] Yvan Manzano Bilirubin [Mass/Vol] 0.2 mg/dL Normal 0.2-1.0 [facility] Comment on above: Performed By: #### C MP, LIPID #### [facility] [address] [place] [address] Dr. Yvan Manzano Calcium [Mass/Vol] 9.5 mg/dL Normal 8.5-10.1 [facility] Comment on above: Performed By: #### C MP, LIPID #### [facility] [address] [place] [address] Dr. Yvan Manzano Chloride [Moles/Vol] 102 mmol/L Normal 98-107 [facility] Comment on above: Performed By: #### C MP, LIPID #### [facility] [address] [place] [address] Dr. Yvan Manzano CO2 [Moles/Vol] 28.0 mmol/L Normal 21.0-32.0 [facility] Comment on above: Performed By: #### C MP, LIPID #### [facility] [address] [place] [address] Dr. Yvan Manzano Creatinine [Mass/Vol] 0.71 mg/dL Normal 0.55-1.02 [facility] Comment on above: Performed By: #### C MP, LIPID #### [facility] [address] [address] [address] Yvan Manzano EGFR-AF CYMRAES >60 Normal >=60 [facility] Comment on above: Performed By: #### C MP, LIPID #### [facility] [address] [address] [address] Yvan Manzano EGFR-NON AF CYMRAES >60 Normal >=60 [facility] Comment on above: Performed By: #### C MP, LIPID #### [facility] [address] [address] [address] Yvan Manzano Globulin (S) [Mass/Vol] 4.0 g/dL Normal [facility] Comment on above: Performed By: #### C MP, LIPID #### [facility] [address] [address] [address] Yvan Manzano Glucose [Mass/Vol] 87 mg/dL Normal 74-106 [facility] Comment on above: Performed By: #### C MP, LIPID #### [facility] [address] [address] [address] Yvan Manzano Potassium [Moles/Vol] 3.7 mmol/L Normal 3.5-5.1 [facility] Comment on above: Performed By: #### C MP, LIPID #### [facility] [address] [address] [address] Yvan Manzano Protein [Mass/Vol] 7.6 g/dL Normal 6.4-8.2 [facility] Comment on above: Performed By: #### C MP, LIPID #### [facility] [address] [place] [address] Dr. Yvan Manzano Sodium [Moles/Vol] 138 mmol/L Normal 136-145 [facility] Comment on above: Performed By: #### C MP, LIPID #### [facility] [address] [address] [address] Yvan Manzano Urea nitrogen [Mass/Vol] 14.0 mg/dL Normal 7.0-18.0 [facility] Comment on above: Performed By: #### C MP, LIPID #### [facility] [address] [address] [address] Yvan Manzano Urea nitrogen/Creatinine [Mass ratio] 19.7 mg/mg Normal [facility] Comment on above: Performed By: #### C MP, LIPID #### [facility] [address] [address] [address] Yvan Manzano XR hip RT min 2V(w/wo pelvis )*on 03-26-2022 XR hip RT min 2V(w/wo pelvis)* [facility] Main [address] [address] XRay Report Signed Patient: Tatiana Sepulveda MR#: [id number] : 1975 Acct:[id number] Age/Sex: 46 / F ADM Date: 03/26/22 [...] Michael Harper M.D.03/26/2022 3:38 PM Dictation Location: [place] [address] Transcribed By: [facility] 03/26/22 1538 Dictated By: Michael Harper DO 03/26/22 1534 Signed By: 03/26/22 1538 Normal [facility] XR sacrum coccyx min 2Von XR sacrum coccyx min 2V [facility] Main [place] [id number] XRay Report Signed Patient: Tatiana Sepulveda MR#: [id number] : 1975 Acct:[id number] Age/Sex: 45 / F ADM Date: 09/29/21 [...] M.D.09/29/2021 4:16 PM Dictation Location: [place] [address] Transcribed By: [facility] 09/29/21 161 Dictated By: Laron Villegas II, MD 09/29/21 161 Signed By: 09/29/21 161 [facility] COVID Quick Testingon 2020 Result Negative [facility] Other Vital Signs Date Time Vital Sign Value Performing Clinician Facility 05-03-2023 09:05-0400 Body height 157.48 cm Priyanka Jones Other [facility] Other 05-03-2023 09:05-0400 Body mass index (BMI) [Ratio] 35.02 kg/m2 Priyanka Jones Other [facility] Other 05-03-2023 09:05-0400 Body temperature 97.5 [degF] Priyanka Jones Other [facility] Other 05-03-2023 09:05-0400 Body weight 86.86 kg Priyanka Jones Other [facility] Other 05-03-2023 09:05-0400 Diastolic blood pressure 76 mm[Hg] Priyanka Olveraley Other [facility] Other 05-03-2023 09:05-0400 Respiratory rate 18 /min Priyanka Olveraley Other [facility] Other 05-03-2023 09:05-0400 SaO2% (BldA) [Mass fraction] 100 % Priyanka Olveraley Other [facility] Other 05-03-2023 09:05-0400 Systolic blood pressure 117 mm[Hg] Priyanka Olveraley Other [facility] Other 11-17-2022 11:30-0500 Body height 157.48 cm Mona Yeungault Other [facility] Other 11-17-2022 11:30-0500 Body mass index (BMI) [Ratio] 35.3 kg/m2 Mona Yeungault Other [facility] Other 11-17-2022 11:30-0500 Body temperature 98.7 [degF] Mona Mikel Other [facility] Other 11-17-2022 11:30-0500 Body weight 87.54 kg Mona Mikel Other [facility] Other 11-17-2022 11:30-0500 Respiratory rate 18 /min Mona Mikel Other [facility] Other 11-17-2022 11:30-0500 SaO2% (BldA) [Mass fraction] 98 % Mona Mikel Other [facility] Other 09-28-2022 16:30-0500 Body height 157.48 cm Mona Yeungault Other [facility] Other 09-28-2022 16:30-0500 Body mass index (BMI) [Ratio] 35.3 kg/m2 Mona Yeungault Other [facility] Other 09-28-2022 16:30-0500 Body temperature 98 [degF] Mona Yeungault Other [facility] Other 09-28-2022 16:30-0500 Body weight 87.54 kg Mona Yeungault Other [facility] Other 09-28-2022 16:30-0500 Diastolic blood pressure 79 mm[Hg] Mona Yeungault Other [facility] Other 09-28-2022 16:30-0500 Respiratory rate 18 /min Mona Morin Other [facility] Other 09-28-2022 16:30-0500 SaO2% (BldA) [Mass fraction] 98 % Mona Yeungault Other [facility] Other 09-28-2022 16:30-0500 Systolic blood pressure 130 mm[Hg] Mona Mikel Other [facility] Other 07-14-2022 15:00-0400 Body height 157.48 cm Mona Yeungault Other [facility] Other 07-14-2022 15:00-0400 Body mass index (BMI) [Ratio] 35.66 kg/m2 Mona Mikel Other [facility] Other 07-14-2022 15:00-0400 Body weight 88.45 kg Mona Morin Other [facility] Other 07-14-2022 15:00-0400 Diastolic blood pressure 89 mm[Hg] Mona Morin Other [facility] Other 07-14-2022 15:00-0400 Respiratory rate 18 /min Mona Morin Other [facility] Other 07-14-2022 15:00-0400 SaO2% (BldA) [Mass fraction] 98 % Mona Morin Other [facility] Other 07-14-2022 15:00-0400 Systolic blood pressure 145 mm[Hg] Mona Morin Other [facility] Other 06-30-2022 12:00-0400 Body height 157.48 cm Mona Morin Other [facility] Other 06-30-2022 12:00-0400 Body mass index (BMI) [Ratio] 35.48 kg/m2 Mona Morin Other [facility] Other 06-30-2022 12:00-0400 Body temperature 97.7 [degF] Mona Morin Other [facility] Other 06-30-2022 12:00-0400 Body weight 88 kg Mona Morin Other [facility] Other 06-30-2022 12:00-0400 Diastolic blood pressure 87 mm[Hg] Mona Morin Other [facility] Other 06-30-2022 12:00-0400 Respiratory rate 18 /min Mona Morin Other [facility] Other 06-30-2022 12:00-0400 SaO2% (BldA) [Mass fraction] 97 % Mona Morin Other [facility] Other 06-30-2022 12:00-0400 Systolic blood pressure 136 mm[Hg] Mona Morin Other [facility] Other 02-03-2022 11:00-0400 Body height 157.48 cm Mona Morin Other [facility] Other 02-03-2022 11:00-0400 Body mass index (BMI) [Ratio] 35.84 kg/m2 Mona Morin Other [facility] Other 02-03-2022 11:00-0400 Body temperature 98.2 [degF] Mona Morin Other [facility] Other 02-03-2022 11:00-0400 Body weight 88.91 kg Mona Morin Other [facility] Other 02-03-2022 11:00-0400 Diastolic blood pressure 96 mm[Hg] Mona Morin Other [facility] Other 02-03-2022 11:00-0400 Respiratory rate 18 /min Mona Morin Other [facility] Other 02-03-2022 11:00-0400 SaO2% (BldA) [Mass fraction] 99 % Mona Morin Other [facility] Other 02-03-2022 11:00-0400 Systolic blood pressure 157 mm[Hg] Mona Morin Other [facility] Other 08-31-2021 10:00-0500 Body height 157.48 cm Kaylie Ginty Other [facility] Other 08-31-2021 10:00-0500 Body mass index (BMI) [Ratio] 35.66 kg/m2 Kaylie Ginty Other [facility] Other 08-31-2021 10:00-0500 Body temperature 98.7 [degF] Kaylie Ginty Other [facility] Other 08-31-2021 10:00-0500 Body weight 88.45 kg Kaylie Ginty Other [facility] Other 08-31-2021 10:00-0500 Respiratory rate 18 /min Kaylie Ginty Other [facility] Other 08-31-2021 10:00-0500 SaO2% (BldA) [Mass fraction] 95 % Kaylie Ginty Other [facility] [facility] Other Encounters Encounter Date Encounter Type Care Provider Facility Start: 04-12-2024 End: 04-12-2024 ambulatory TD BERUMEN [facility] Start: 02-28-2024 End: 02-28-2024 ambulatory Montana Bergeron MD Facility: [facility] Start: 02-23-2024 End: 02-23-2024 ambulatory ELSI AICHHOLZ Not Available Start: 02-07-2024 End: 02-07-2024 ambulatory ELSI AICHHOLZ Not Available Start: 02-03-2024 End: 02-03-2024 ambulatory KRUNAL MCARTHUR Not Available Start: 01-17-2024 End: 01-17-2024 ambulatory Montana Bergeron MD Facility:[facility] Start: 01-11-2024 End: 01-11-2024 ambulatory ELSI AICHHOLZ Not Available Start: 12-24-2023 Telephone encounter Saeid Gooden [facility] Start: 11-04-2023 End: 11-04-2023 ambulatory TD Brenda [facility] Start: 10-26-2023 End: 10-26-2023 ambulatory ELSI AICHHOLZ Not Available Start: 09-13-2023 End: 09-13-2023 ambulatory ELSI AICHHOLZ Not Available Start: 05-03-2023 End: 05-03-2023 ambulatory Priyanka Jones Other [facility] [facility] Other Start: 05-03-2023 Office outpatient visit 15 minutes Priyanka Jones [facility] [place] Start: 01-22-2023 End: 01-23-2023 ambulatory MONA MORIN Facility: Start: 11-23-2022 End: 11-23-2022 ambulatory Mona Morin Other [facility] Other Start: 11-23-2022 Telephone encounter Mona hyde [employer] Start: 11-20-2022 End: 11-20-2022 ambulatory Mona Morin Other [facility] Other Start: 11-20-2022 Encounter by juan Morin [facility] [place] Start: 11-17-2022 End: 11-18-2022 ambulatory MONA MORIN [facility] Other Start: 11-17-2022 Office outpatient visit 15 minutes Mona Morin [facility] Start: 10-06-2022 End: 10-06-2022 ambulatory Monamonty Morin Other [facility] Other Start: 10-06-2022 Telephone encounter Monamonty Palmerl t [facility] [place] Start: 09-29-2022 End: 09-29-2022 ambulatory PHYSICIAN NO [facility] Work Phone: Start: 09-29-2022 End: 09-29-2022 Departed Referred PHYSICIAN NO [facility] [place] Work Phone: Start: 09-28-2022 End: 09-28-2022 ambulatory Monamonty Morin Other [facility] [facility] Other Start: 09-28-2022 Office outpatient visit 15 minutes Monamonty Morin [facility] [place] Start: 09-14-2022 End: 09-14-2022 ambulatory Monamonty Morin Other [facility] [facility] Other Start: 09-14-2022 Telephone encounter Monamonty Palmerl t [facility] Start: 07-14-2022 End: 07-14-2022 ambulatory Monamonty Morin Other [facility] [facility] Other Start: 07-14-2022 Office outpatient visit 15 minutes Monamonty Morin [facility] Start: 06-30-2022 End: 06-30-2022 ambulatory Mona Mikel Other [facility] [facility] Other Start: 06-30-2022 Office outpatient visit 15 minutes Mona Mikel [facility] [place] Start: 04-02-2022 End: 04-02-2022 ambulatory Mona Mikel Other [facility] Other Start: 04-02-2022 Telephone encounter Mona Palmerl t [facility] Start: 03-31-2022 Telephone encounter Monamonty Palmerl t [facility] Start: 03-31-2022 End: 04-01-2022 ambulatory MONA MORIN [facility] Other Start: 02-03-2022 End: 02-03-2022 ambulatory Mona Morin Other [facility] [facility] Other Start: 02-03-2022 Office outpatient visit 15 minutes Mona Morin [facility] Start: 12-10-2021 End: 12-10-2021 ambulatory Mona Morin Other [facility] [facility] Other Start: 12-10-2021 Telephone encounter Monamonty Palmerl t [facility] Start: 11-10-2021 End: 11-10-2021 ambulatory Mona Morin Other [facility] Other Start: 11-10-2021 Telephone encounter Monamonty Palmerl t [facility] Start: 09-03-2021 End: 09-03-2021 ambulatory Kaylie Ginty Other [facility] [facility] Other Start: 09-03-2021 Telephone encounter Kaylie Ginty [facility] Start: 08-31-2021 End: 08-31-2021 ambulatory Kaylie Ginty Other [facility] Other Start: 08-31-2021 Office outpatient visit 15 minutes Kaylie Ginty [facility] Procedures Date Procedure Procedure Detail Performing Clinician Start: 10-11-2017 Mammography Saeid hogue [facility] TECHNICIAN Start: 02-05-2017 Microscopic observat ion [Identifier] in Cervix by Cyto stain Saeid Gooden R AND D LAB TECHNICIAN Plan of Treatment Date Care Activity Detail Author Start: 05-26-2024 Adult BMI Screening Adult BMI Screen ing [facility] Start: 05-26-2024 Tobacco Screening Tobacco Screening [facility] Start: 05-28-2023 Influenza vaccination Influenza Vacc ine [facility] Start: 09-29-2022 Aerobic Culture Aerobic Culture [facility] Start: 09-29-2022 Anaerobic Culture Anaerobic Culture [facility] Start: 09-29-2022 Microscopic observat ion [Identifier] in Unspecified specimen by Gram stain Gram Stain [facility] Start: 02-06-2020 Screening for malign ant neoplasm of cervix Pap Smear [facility] Start: 10-11-2018 Screening for malign ant neoplasm of breast Mammogram [facility] Start: 12-06-1995 DTaP,Tdap and Td Vaccines (1 - Tdap) DTaP,Tdap and Td Vaccines ( - Tdap) [facility] Start: 1994 Adult BMI Follow Up Plan Adult BMI Follow Up Plan [facility] Start: 1988 Depression Screening Depression Scre ening [facility] Bacteria identified in Unspecified specimen by Aerobe culture [facility] Bacteria identified in Unspecified specimen by Anaerobe culture [facility] Immunizations Immunization Date Immunization Notes Care Provider Fa tooty 10-01-2020 influenza virus vacc ine, unspecified formulation Saeid Gooden [facility] Payers Date Payer Category Payer Medicaid PENDING SALE TO [facility] MEDICAID [id number] 2022-Present [address] [place] [address] [id number] 2022 Medicaid [id number] 2017 Unknown [id number]. [id number] .[id number] 1975 Unknown [id number] 2..840.1.270743.3.579.2.5 93 1976 Unknown [id number] 2..840.1.381907.3.579.2.5 93 1976 Unknown [id number] 2.16.840.1.436520.3.579.2.5 93 1976 Unknown [id number] 2.16.840.1.754303.3.579.2.1 259 1975 Unknown [id number] 2.16.840.1.851566.3.579.2.1 259 1976 Unknown [id number] 2.16.840.1.344018.3.579.2.1 259 1976 Unknown [id number] 2.16.840.1.301823.3.579.2.1 259 1976 Unknown [id number] 2.16.840.1.433965.3.579.2.1 259 1976 Unknown [id number] 2.16.840.1.774014.3.579.2.1 259 1976 Unknown [id number] 2.16.840.1.783592.3.579.2.1 96 1976 Unknown [id number] 2.16.840.1.570538.3.579.2.1 96 1976 Unknown [id number] 2.16.840.1.914614.3.579.2.1 286 1975 Unknown [id number] 2.16.840.1.516496.3.579.2.1 286 1959 Unknown [id number] 2.16.840.1.556649.19 1959 Unknown [id number] Blue Cross Blue [facility] [id number] [id number] Self-pay Self Pay [id number] Unknown [id number] 2.16840.1.392663.19 Social History Date Type Detail Facility Unknown if ever smoked [facility] Other Start: 11-06-2020 End: 05-26-2023 Sex Assigned At [facility] [employer] [employer] Other Start: 1975 Sex Assigned At Female F [facility] Start: 08-23-2017 Tobacco smoking stat us NHIS Never smoked tobacco [facility] Start: 08-23-2017 Tobacco use and exposure Smokeless tobacco non-user [facility] Start: 05-26-2023 Alcohol intake Current non-dr die technician of alcohol (finding) [facility] Start: 11-06-2020 End: 05-26-2023 History of Social function [facility] Childcare Unknown [facility] Start: 1975 Sex Assigned At Not on file [facility] Medical Equipment Procedure Code Equipment Code [...] a message. documented in this encounter [facility] 12-24-2023 Telephone encount er Note Attempted to contact patient to reschedule appointment on 05/31/[address] Verdugo is out of the office. No Vm set up to leave a message. [facility] 05-03-2023 Evaluation note Encounter Date Diagnosis [...] fever. Patient/Parent verbalized understanding of treatment plan. [facility] Other 02-21-2023 Evaluation note* Encounter Date Diagnosis [...] weeks for the cough to go away [facility] Other 01-02-2023 Evaluation note* Encounter Date Diagnosis [...] obtained for C&S. Will call with results. [facility] Other 12-19-2022 Evaluation note* Encounter Date Diagnosis Assessment Notes Treatment Notes Treatment Clinical Notes Aug, Gastroesophageal ref lux disease, unspecified whether esophagitis present (ICD-10 - K21.9) Aug, PCOS (polycystic ovarian syndrome) (ICD-10 - E28.2) [facility] Other 10-18-2022 Evaluation note* Encounter Date Diagnosis Assessment Notes Treatment Notes Treatment Clinical Notes Jun, Fibromyalgia (ICD-10 - M79.7) Continue current treatment regimen. Printed off script to use as needed [facility] Other 10-04-2022 Evaluation note* Encounter Date Diagnosis Assessment Notes Treatment Notes Treatment Clinical Notes Jun, Primary hypertension (ICD-10 - I10) Jun, SJ (generalized anxiety disorder) (ICD-10 - F41.1) [facility] Other 07-07-2022 Evaluation note* Encounter Date Diagnosis Assessment Notes Treatment Notes Treatment Clinical Notes Mar, Right hip pain (ICD-10 - M25.551) [facility] Other 05-10-2022 Evaluation note* Encounter Date Diagnosis Assessment Notes Treatment Notes Treatment Clinical Notes January, Gastroesophageal ref lux disease, unspecified whether esophagitis present (ICD-10 - K21.9) Continue to take medication as directed. January, PCOS (polycystic ovarian syndrome) (ICD-10 - E28.2) Take medication as directed with food [facility] [facility] Other 03-16-2022 Evaluation note* Encounter Date Diagnosis Assessment Notes Treatment Notes Treatment Clinical Notes Nov, Sacral back pain (ICD-10 - M53.3) [facility] Other 02-14-2022 Evaluation note* Encounter Date Diagnosis Assessment Notes Treatment Notes Treatment Clinical Notes Oct, Gastroesophageal ref lux disease, unspecified whether esophagitis present (ICD-10 - K21.9) [facility] Other 02-14-2022 Evaluation note* Encounter Date Diagnosis Assessment Notes Treatment Notes Treatment Clinical Notes Oct, Sacral back pain (ICD-10 - M53.3) [facility] Other 2021 Evaluation note* Encounter Date Diagnosis [...] care instructions given in writting by [facility] At Home document. [facility] [facility] Other Evaluation noteNo InformationNort [employer] Other Evaluation noteNo assessment information available [facility] Work Phone: History general Narrative - Reported* Type Description Date Medical History asthma Medical History pcos Medical History Fibromyalgia Medical History Hypothyroidism - euthyroid Medical History chronic fatigue Surgical History gall bladder Surgical History vein removed in bilaterally Surgical History gastric sleeve Hospitalization History see above Hospitalization History CHILD X'S 5 [facility] [facility] Other InstructionsNot on filedocumented in this encounter [facility] [email or web address] SystemReason for visit NarrativeDermatology Referral Update [employer] Other Summary Purpose Family History No Family [...] section and content) DATE CREATED AUTHOR 03/27/2022 [place] DATE CREATED AUTHOR AUTHOR'S ORGANIZ ATION 01/29/2023 [facility] pital DATE CREATED AUTHOR AUTHOR'S ORGANIZ ATION 02/24/2024 [facility] EPIC DATE CREATED AUTHOR AUTHOR'S ORGANIZ ATION 03/07/2024 [facility] DATE CREATED AUTHOR AUTHOR'S ORGANIZ ATION 04/16/2024 [facility] Care Teams (unrecognized sec tion and content) Team Status: Inactive Member Role Status Dates PHYSICIAN NO FAMILY Primary Care Provider Active CHRISTIANO Jha Attending Provider Active Team Status: Active Member Role Status Dates PHYSICIAN NO FAMILY Primary Care Provider Active [employer] Relationship Specialty Start Date End Date Mona Morin APRN-FNP [address] [place] [address] PCP - General Family Medicine 01/08/21 Goals [...] BE BASED ON THE PRIMARY CLINICAL RECORDS. [facility]. provides no warranty or guarantee of the accuracy or completeness of information in this document.
== END 2024-06-07 09:54 | disposition home or self-care (01) ==
LOC: VC 09:01
PROVIDERS: PCP Nurse Practitioner; Visit Provider Radiology Diagnostic Radiology
DX: I83.813 Varicose veins of bilateral lower extremities with pain (principal)
CPT/HCPCS: 36466

== ENCOUNTER 2024-06-12 08:47 | Outpatient (OUT) | payer BC, MEDICAID, SELFPAY ==
--- NOTE | 2024-06-12 08:52 | US_ITS ---
The [address] [address] Patient Name: JONNATHAN SEPULVEDA MRN: [id number] date: 1975 Sex: F Assigned Patient Location: US Current Patient Location: US Accession/Order Number: [id number] Exam Date: 06/12/2024 09:20 Report Date: 06/12/2024 11:09 At the request of: ELSI SUAREZ Procedure: US pelvis transvaginal EXAMINATION: US pelvis transvaginal HISTORY: Amenorrhea N91.2 COMPARISON: No relevant comparison available. FINDINGS: The uterus is normal in size, contour and echotexture measuring 7.3 x 4.8 x 4.5 cm per the uterus is anteverted. No focal myometrial mass The endometrium measures 9.2 mm, normal. The right ovary is normal measuring 3.5 x 1.9 x 1.5 cm. Normal color Doppler flow. No significant follicles The left ovary is normal measuring 2.9 x 2.6 x 2.2 cm. Doppler flow could not be obtained likely related to technical factors. No significant follicles No free fluid US/US pelvis transvaginal IMPRESSION: No abnormality observed. No ultrasound evidence of polycystic ovarian morphology Electronically authenticated by: TRE VALDOVINOS Date: 06/12/2024 11:09
--- OUTSIDE RECORDS SUMMARY | 2024-06-12 09:09 | XMS_ITS | CCD ---
Author Organization [facility] Care Team Providers Care Steam Conditioning Operator Name Role Phone Kaylie Echeverria Unavailable Mona Morin Unavailable NO FAMILY, PHYSICIAN Primary Care Provider Unava ilCHRISTIANO Lazaro Attending Provider MONA MORIN Primary Care Unavailable MISC, DR ELIAS Attending Unavailable MISC, DR ELIAS Admitting Unavailable AICHHOLZ, NEWSPAPER DISTRIBUTOR SUPERVISOR ELSI Consulting Unavailable MONA MORIN Consulting Unavailable MONA MORIN Primary Care Unavailable MONA MORIN Admitting Unavailable MONA MORIN Attending Unavailable MONA MORIN Primary Care Unavailable MONA MORIN Admitting Unavailable MONA MORIN Attending Unavailable MONA MORIN Consulting Unavailable Priyanka Jones Unavailable Mikel SEED TECHNICIAN-Mona KENNEDY Primary Care Provide r ELSI SUAREZ [...] Facility (5 sources) Cephalexin Drug Allergy rash [facility] Other (12 sources) Cephalexin Drug Allergy rash [facility] Other (1 source) Sulfamethoxazole / Trimethoprim Drug Allergy 3 [facility] Repository Medications Current Medications Medication Drug Class(es) Dates Sig (Normalized) Sig (Original) [id number] 200 actuat albuterol 0.09 mg/actuat metered dose [...] oral solution (2 sources) alpha-Adrenergic Agonist, Uncompetitive K-bcnglf-H-aspartate Receptor Antagonist, Sigma-1 Agonist Start: 08-31-2021 take [...] pyogenes Org specific cx Ql (Throat) Negative Georgina Goodman [facility] Death by Party Other Quick Strep [facility] Death by Party Other INSULINon 01-26-2023 Insulin 21.3 uIU/mL Normal 2.6-24.9 [facility] Comment on above: Performed By: #### I NSULIN #### [facility] [address] [place] [address] Dr. Yvan Manzano CORTISOLon 01-23-2023 Cortisol 11.2 ug/dL Normal 6.2-19.4 [facility] Comment on above: Result Comment: [place] Note: The reference interval and flagging for this test is for an AM collection. If this is a PM collection please use: Cortisol PM: 2.3-11.9 [facility] also offers: [id number]: Cortisol- AM [id number]: Cortisol- PM Performed By: #### C BC #### [facility] [address] [place] [address] Dr. Yvan Manzano CBC AUTO DIFFon 01-22-2023 BASO # 0.1 103/ul Normal 0.0-0.1 [facility] Comment on above: Performed By: #### C BC #### [facility] [address] [place] [address] Dr. Yvan Manzano Basophils/100 WBC (Bld) 0.9 % Normal 0.2-2.0 [facility] Comment on above: Performed By: #### C BC #### [facility] [address] [place] [address] Dr. Yvan Manzano EO # 0.3 103/ul Normal 0.0-0.7 [facility] Comment on above: Performed By: #### C BC #### [facility] [address] [place] [address] Dr. Yvan Manzano Eosinophils/100 WBC (Bld) 5.7 % Normal 0.9-7.0 [facility] Comment on above: Performed By: #### C BC #### [facility] [address] [place] [address] Dr. Yvan Manzano Erythrocyte distribution width (RBC) [Ratio] 14.6 % Normal 11.0-15.0 [facility] Comment on above: Performed By: #### C BC #### [facility] [address] [place] [address] Dr. Yvan Manzano Hematocrit (Bld) [Volume fraction] 36.8 % Normal 36.0-48.0 [facility] Comment on above: Performed By: #### C BC #### [facility] [address] [place] [address] Dr. Yvan Manzano Hemoglobin (Bld) [Mass/Vol] 11.4 g/dL Critically low 12.0-16.0 [facility] Comment on above: Performed By: #### C BC #### [facility] [address] [place] [address] Dr. Yvan Manzano IG # 0.02 10e3/ul Normal 0.00-0.03 [facility] Comment on above: Performed By: #### C BC #### [facility] [address] [place] [address] Dr. Yvan Manzano IG % 0.3 % Normal 0.0-0.5 [facility] Comment on above: Performed By: #### C BC #### [facility] [address] [place] [address] Dr. Yvan Manzano LYMPH # 1.5 103/ul Normal 1.2-3.8 [facility] Comment on above: Performed By: #### C BC #### [facility] [address] [place] [address] Dr. Yvan Manzano Lymphocytes/100 WBC (Bld) 25.3 % Normal 20.5-60.0 [facility] Comment on above: Performed By: #### C BC #### [facility] [address] [place] [address] Dr. Yvan Manzano MANUAL DIFF REQ NO Normal [facility] Comment on above: Performed By: #### C BC #### [facility] [address] [place] [address] Dr. Yvan Manzano MCH (RBC) [Entitic mass] 25.2 pg Critically low 26.7-34.0 [facility] Comment on above: Performed By: #### C BC #### [facility] [address] [place] [address] Dr. Yvan Manzano MCHC (RBC) [Mass/Vol] 31.0 g/dL Normal 29.9-35.2 [facility] Comment on above: Performed By: #### C BC #### [facility] [address] [place] [address] Dr. Yvan Manzano MCV (RBC) [Entitic vol] 81.4 fL Normal 81.0-99.0 [facility] Comment on above: Performed By: #### C BC #### [facility] [address] [place] [address] Dr. Yvan Manzano MONO # 0.4 103/ul Normal 0.3-0.8 [facility] Comment on above: Performed By: #### C BC #### [facility] [address] [place] [address] Dr. Yvan Manzano Monocytes/100 WBC (Bld) 7.7 % Normal 1.7-12.0 [facility] Comment on above: Performed By: #### C BC #### [facility] [address] [place] [address] Dr. Yvan Manzano NEUT # 3.5 103/ul Normal 1.4-6.5 [facility] Comment on above: Performed By: #### C BC #### [facility] [address] [place] [address] Dr. Yvan Manzano Neutrophils/100 WBC (Bld) 60.1 % Normal 43.0-75.0 [facility] Comment on above: Performed By: #### C BC #### [facility] [address] [place] [address] Dr. Yvan Manzano Platelet mean volume (Bld) [Entitic vol] 8.8 fL Critically low 9.5-13.5 [facility] Comment on above: Performed By: #### C BC #### [facility] [address] [address] [address] Yvan Manzano PLT 347 103/ul Normal 150-450 [facility] Comment on above: Performed By: #### C BC #### [facility] [address] [place] [address] Dr. Yvan Manzano RBC 4.52 106/ul Normal 4.20-5.40 [facility] Comment on above: Performed By: #### C BC #### [facility] [address] [place] [address] Dr. Yvan Manzano WBC 5.7 103/ul Normal 4.0-11.0 [facility] Comment on above: Performed By: #### C BC #### [facility] [address] [place] [address] Dr. Yvan Manzano FREE T4on 01-22-2023 Free T4 [Mass/Vol] 0.84 ng/dL Normal 0.76-1.46 [facility] Comment on above: Performed By: #### F T4 #### [facility] [address] [place] [address] Dr. Yvan Manzano LIPID PROFILEon 01-22-2023 CHOL-HDL RATIO NORM SEE BELOW Normal [facility] Comment on above: Result Comment: 3.3 - 4.4 LOW RISK 4.4 - 7.1 AVERAGE RISK 7.1 - 11.0 MODERATE RISK >11.0 HIGH RISK Performed By: #### T SH, LIPID #### [facility] [address] [place] [address] Dr. Yvan Manzano Cholesterol [Mass/Vol] 264 mg/dL Critically high <=200 [facility] Comment on above: Performed By: #### T SH, LIPID #### [facility] [address] [place] [address] Dr. Yvan Manzano Cholesterol in HDL [Mass/Vol] 52 mg/dL Normal 40-60 [facility] Comment on above: Performed By: #### T SH, LIPID #### [facility] [address] [place] [address] Dr. Yvan Manzano Cholesterol in LDL [Mass/Vol] 173.6 mg/dL Normal [facility] Comment on above: Performed By: #### T SH, LIPID #### [facility] [address] [address] [address] Yvan Manzano Cholesterol.total/Ch olesterol in HDL [Mass ratio] 5.1 {ratio} Normal [facility] Comment on above: Performed By: #### T SH, LIPID #### [facility] [address] [place] [address] Dr. Yvan Manzano HDL NORMAL > or = 60 mg/dl - LOW CARDIOVASCULAR RISK <40 mg/dl - HIGH CARDIOVASCULAR RISK Normal [facility] Comment on above: Performed By: #### T SH, LIPID #### [facility] [address] [address] [address] Yvan Manzano LDL CALC NORMAL SEE BELOW Normal [facility] Comment on above: Result Comment: <100 mg/dl OPTIMAL 100 - 129 mg/dl NEAR OR ABOVE OPTIMAL 130 - 159 mg/dl BORDERLINE HIGH 160 - 189 mg/dl HIGH >190 mg/dl VERY HIGH Performed By: #### T SH, LIPID #### [facility] [address] [place] [address] Dr. Yvan Manzano Triglyceride [Mass/Vol] 192 mg/dL Critically high <=150 [facility] Comment on above: Performed By: #### T SH, LIPID #### [facility] [address] [place] [address] Dr. Yvan Manzano VLDL CALC 38.4 mg/dL Normal [facility] Comment on above: Performed By: #### T SH, LIPID #### [facility] [address] [place] [address] Dr. Yvan Manzano TSHon 01-22-2023 TSH 5.749 uIU/mL Critically high 0.358-3.740 [facility] Comment on above: Performed By: #### T SH, LIPID #### [facility] [address] [place] [address] Dr. Yvan Manzano GLYCOHEMOGLOBIN A1Con 2022 ADA RECOMMENDATION SEE BELOW Normal [facility] Comment on above: Result Comment: ADA RECOMMENDED LIMIT 4.0 - 6.0 ADA THERAPEUTIC TARGET < 7.0 ACTION SUGGESTED > 7.0 Performed By: #### A 1C #### [facility] [address] [place] [address] Dr. Yvan Manzano Glucose [Mass/Vol] 137 mg/dL Normal [facility] Comment on above: Performed By: #### A 1C #### [facility] [address] [place] [address] Dr. Yvan Manzano HbA1c (Bld) [Mass fraction] 6.4 % Critically high 4.5-6.2 [facility] Comment on above: Performed By: #### A 1C #### [facility] [address] [place] [address] Dr. Yvan Manzano PROF 14(COMP METB)on 023 Albumin [Mass/Vol] 3.4 g/dL Normal 3.4-5.0 [facility] Comment on above: Performed By: #### C MP #### [facility] [address] [place] [address] Dr. Yvan Manzano Albumin/Globulin [Mass ratio] 0.9 {ratio} Normal [facility] Comment on above: Performed By: #### C MP #### [facility] [address] [place] [address] Dr. Yvan Manzano ALP [Catalytic activity/Vol] 74 U/L Normal 46-116 [facility] Comment on above: Performed By: #### C MP #### [facility] [address] [place] [address] Dr. Yvan Manzano ALT [Catalytic activity/Vol] 25 U/L Normal 14-59 [facility] Comment on above: Performed By: #### C MP #### [facility] [address] [place] [address] Dr. Yvan Manzano Anion gap [Moles/Vol] 9.4 mmol/L Normal [facility] Comment on above: Performed By: #### C MP #### [facility] [address] [place] [address] Dr. Yvan Manzano AST [Catalytic activity/Vol] 17 U/L Normal 15-37 [facility] Comment on above: Performed By: #### C MP #### [facility] [address] [address] [address] Yvan Manzano Bilirubin [Mass/Vol] 0.1 mg/dL Critically low 0.2-1.0 [facility] Comment on above: Performed By: #### C MP #### [facility] [address] [address] [address] Yvan Manzano Calcium [Mass/Vol] 9.2 mg/dL Normal 8.5-10.1 [facility] Comment on above: Performed By: #### C MP #### [facility] [address] [address] [address] Yvan Manzano Chloride [Moles/Vol] 101 mmol/L Normal 98-107 [facility] Comment on above: Performed By: #### C MP #### [facility] [address] [place] [address] Dr. Yvan Manzano CO2 [Moles/Vol] 30.4 mmol/L Normal 21.0-32.0 [facility] Comment on above: Performed By: #### C MP #### [facility] [address] [address] [address] Yvan Manzano Creatinine [Mass/Vol] 0.71 mg/dL Normal 0.55-1.02 [facility] Comment on above: Performed By: #### C MP #### [facility] [address] [place] [address] Dr. Yvan Manzano EGFR-AF MALTESE >60 Normal >=60 [facility] Comment on above: Performed By: #### C MP #### [facility] [address] [address] [address] Yvan Manzano EGFR-NON AF MALTESE >60 Normal >=60 [facility] Comment on above: Performed By: #### C MP #### [facility] [address] [place] [address] Dr. Yvan Manzano Globulin (S) [Mass/Vol] 4.0 g/dL Normal [facility] Comment on above: Performed By: #### C MP #### [facility] [address] [place] [address] Dr. Yavn Manzano Glucose [Mass/Vol] 138 mg/dL Critically high 74-106 [facility] Comment on above: Performed By: #### C MP #### [facility] [address] [address] [address] Yvan Manzano Potassium [Moles/Vol] 3.8 mmol/L Normal 3.5-5.1 [facility] Comment on above: Performed By: #### C MP #### [facility] [address] [address] [address] Yvan Manzano Protein [Mass/Vol] 7.4 g/dL Normal 6.4-8.2 [facility] Comment on above: Performed By: #### C MP #### [facility] [address] [address] [address] Yvan Manzano Sodium [Moles/Vol] 137 mmol/L Normal 136-145 [facility] Comment on above: Performed By: #### C MP #### [facility] [address] [address] [address] Yvan Manzano Urea nitrogen [Mass/Vol] 13.0 mg/dL Normal 7.0-18.0 [facility] Comment on above: Performed By: #### C MP #### [facility] [address] [address] [address] Yvan Manzano Urea nitrogen/Creatinine [Mass ratio] 18.3 mg/mg Normal [facility] Comment on above: Performed By: #### C MP #### [facility] [address] [address] [address] Yvan Manzano LIPID PROFILEon 03-31-2022 CHOL-HDL RATIO NORM SEE BELOW Normal [facility] Comment on above: Result Comment: 3.3 - 4.4 LOW RISK 4.4 - 7.1 AVERAGE RISK 7.1 - 11.0 MODERATE RISK >11.0 HIGH RISK Performed By: #### C MP, LIPID #### [facility] [address] [place] [address] Dr. Yvan Manzano Cholesterol [Mass/Vol] 229 mg/dL Critically high <=200 [facility] Comment on above: Performed By: #### C MP, LIPID #### [facility] [address] [address] [address] Yvan Manzano Cholesterol in HDL [Mass/Vol] 51 mg/dL Normal 40-60 [facility] Comment on above: Performed By: #### C MP, LIPID #### [facility] [address] [address] [address] Yvan Manzano Cholesterol in LDL [Mass/Vol] 150.4 mg/dL Normal [facility] Comment on above: Performed By: #### C MP, LIPID #### [facility] [address] [address] [address] Yvan Manzano Cholesterol.total/Ch olesterol in HDL [Mass ratio] 4.5 {ratio} Normal [facility] Comment on above: Performed By: #### C MP, LIPID #### [facility] [address] [place] [address] Dr. Yvan Manzano HDL NORMAL > or = 60 mg/dl - LOW CARDIOVASCULAR RISK <40 mg/dl - HIGH CARDIOVASCULAR RISK Normal [facility] Comment on above: Performed By: #### C MP, LIPID #### [facility] [address] [address] [address] Yvan Manzano LDL CALC NORMAL SEE BELOW Normal [facility] Comment on above: Result Comment: <100 mg/dl OPTIMAL 100 - 129 mg/dl NEAR OR ABOVE OPTIMAL 130 - 159 mg/dl BORDERLINE HIGH 160 - 189 mg/dl HIGH >190 mg/dl VERY HIGH Performed By: #### C MP, LIPID #### [facility] [address] [address] [address] Yvan Manzano Triglyceride [Mass/Vol] 138 mg/dL Normal <=150 [facility] Comment on above: Performed By: #### C MP, LIPID #### [facility] [address] [place] [address] Dr. Yvan Manzano VLDL CALC 27.6 mg/dL Normal [facility] Comment on above: Performed By: #### C MP, LIPID #### [facility] [address] [address] [address] Yvan Manzano MICROALB CREAT RATIO RANDOMo n 03-31-2022 mALB 1.4 mg/L Normal <=30.0 [facility] Comment on above: Performed By: #### M CRR #### [facility] [address] [address] [address] Yvan CARABALLO CR RATIO 6.0 mg/g Normal 0.0-29.9 [facility] Comment on above: Performed By: #### M CRR #### [facility] [address] [address] [address] Yvan Manzano MALB CR RATIO RANGE SEE BELOW Normal [facility] Comment on above: Result Comment: NO M ICROALBUMINURIA 0-29 MG/G CLINICAL MICROALBUMINURIA 30-300 MG/G MACROALBUMINURIA >300 MG/G Performed By: #### M CRR #### [facility] [address] [place] [address] Dr. Yvan Manzano URINE CREAT 232.88 mg/dL Normal 20.00-300.00 [facility] Comment on above: Performed By: #### M CRR #### [facility] [address] [place] [address] Dr. Yvan Manzano PROF 14(COMP METB)on 022 Albumin [Mass/Vol] 3.6 g/dL Normal 3.4-5.0 [facility] Comment on above: Performed By: #### C MP, LIPID #### [facility] [address] [place] [address] Dr. Yvan Manzano Albumin/Globulin [Mass ratio] 0.9 {ratio} Normal [facility] Comment on above: Performed By: #### C MP, LIPID #### [facility] [address] [place] [address] Dr. Yvan Manzano ALP [Catalytic activity/Vol] 63 U/L Normal 46-116 [facility] Comment on above: Performed By: #### C MP, LIPID #### [facility] [address] [address] [address] Yvan Manzano ALT [Catalytic activity/Vol] 33 U/L Normal 14-59 [facility] Comment on above: Performed By: #### C MP, LIPID #### [facility] [address] [address] [address] Yvan Manzano Anion gap [Moles/Vol] 11.7 mmol/L Normal [facility] Comment on above: Performed By: #### C MP, LIPID #### [facility] [address] [address] [address] Yvan Manzano AST [Catalytic activity/Vol] 23 U/L Normal 15-37 [facility] Comment on above: Performed By: #### C MP, LIPID #### [facility] [address] [address] [address] Yvan Manzano Bilirubin [Mass/Vol] 0.2 mg/dL Normal 0.2-1.0 [facility] Comment on above: Performed By: #### C MP, LIPID #### [facility] [address] [place] [address] Dr. Yvan Manzano Calcium [Mass/Vol] 9.5 mg/dL Normal 8.5-10.1 [facility] Comment on above: Performed By: #### C MP, LIPID #### [facility] [address] [place] [address] Dr. Yvan Manzano Chloride [Moles/Vol] 102 mmol/L Normal 98-107 [facility] Comment on above: Performed By: #### C MP, LIPID #### [facility] [address] [place] [address] Dr. Yvan Manzano CO2 [Moles/Vol] 28.0 mmol/L Normal 21.0-32.0 [facility] Comment on above: Performed By: #### C MP, LIPID #### [facility] [address] [place] [address] Dr. Yvan Manzano Creatinine [Mass/Vol] 0.71 mg/dL Normal 0.55-1.02 [facility] Comment on above: Performed By: #### C MP, LIPID #### [facility] [address] [address] [address] Yvan Manzano EGFR-AF MALTESE >60 Normal >=60 [facility] Comment on above: Performed By: #### C MP, LIPID #### [facility] [address] [address] [address] Yvan Manzano EGFR-NON AF MALTESE >60 Normal >=60 [facility] Comment on above: Performed By: #### C MP, LIPID #### [facility] [address] [address] [address] Yvan Manzano Globulin (S) [Mass/Vol] 4.0 g/dL Normal [facility] Comment on above: Performed By: #### C MP, LIPID #### [facility] [address] [address] [address] Yvan Manzano Glucose [Mass/Vol] 87 mg/dL Normal 74-106 [facility] Comment on above: Performed By: #### C MP, LIPID #### [facility] [address] [address] [address] Yvan Manzano Potassium [Moles/Vol] 3.7 mmol/L Normal 3.5-5.1 [facility] Comment on above: Performed By: #### C MP, LIPID #### [facility] [address] [address] [address] Yvan Manzano Protein [Mass/Vol] 7.6 g/dL Normal 6.4-8.2 [facility] Comment on above: Performed By: #### C MP, LIPID #### [facility] [address] [place] [address] Dr. Yvan Manzano Sodium [Moles/Vol] 138 mmol/L Normal 136-145 [facility] Comment on above: Performed By: #### C MP, LIPID #### [facility] [address] [address] [address] Yvan Manzano Urea nitrogen [Mass/Vol] 14.0 mg/dL Normal 7.0-18.0 [facility] Comment on above: Performed By: #### C MP, LIPID #### [facility] [address] [address] [address] Yvan Manzano Urea nitrogen/Creatinine [Mass ratio] 19.7 mg/mg Normal [facility] Comment on above: Performed By: #### C MP, LIPID #### [facility] [address] [address] [address] Yvan Manzano XR hip RT min 2V(w/wo pelvis )*on 03-26-2022 XR hip RT min 2V(w/wo pelvis)* [facility] Main [address] [address] XRay Report Signed Patient: Tatiana Sepulveda MR#: [id number] : 1975 Acct:[id number] Age/Sex: 46 / F ADM Date: 03/26/22 [...] Michael Harper M.D.03/26/2022 3:38 PM Dictation Location: [place] [address] Transcribed By: [facility] 03/26/22 1538 Dictated By: Michael Harper DO 03/26/22 1534 Signed By: 03/26/22 1538 Normal [facility] XR sacrum coccyx min 2Von XR sacrum coccyx min 2V [facility] Main [place] [id number] XRay Report Signed Patient: Tatiana Sepulveda MR#: [id number] : 1975 Acct:[id number] Age/Sex: 45 / F ADM Date: 09/29/21 [...] Laron Villegas M.D.09/29/2021 4:16 PM Dictation Location: [place] [address] Transcribed By: [facility] 09/29/21 161 Dictated By: Laron Villegas II, MD 09/29/21 161 Signed By: 09/29/21 161 [facility] COVID Quick Testingon 2020 Result Negative [facility] Other Vital Signs Date Time Vital Sign Value Performing Clinician Facility 05-03-2023 09:05-0400 Body height 157.48 cm Priyanka Jones Other [facility] Other 05-03-2023 09:05-0400 Body mass index (BMI) [Ratio] 35.02 kg/m2 Priyanka Jones Other [facility] Other 05-03-2023 09:05-0400 Body temperature 97.5 [degF] Priyanka Jones Other [facility] Other 05-03-2023 09:05-0400 Body weight 86.86 kg Priyanka Jones Other [facility] Other 05-03-2023 09:05-0400 Diastolic blood pressure 76 mm[Hg] Priyanka Olveraley Other [facility] Other 05-03-2023 09:05-0400 Respiratory rate 18 /min Priyanka Olveraley Other [facility] Other 05-03-2023 09:05-0400 SaO2% (BldA) [Mass fraction] 100 % Priyanka Olveraley Other [facility] Other 05-03-2023 09:05-0400 Systolic blood pressure 117 mm[Hg] Priyanka Olveraley Other [facility] Other 11-17-2022 11:30-0500 Body height 157.48 cm Mona Yeungault Other [facility] Other 11-17-2022 11:30-0500 Body mass index (BMI) [Ratio] 35.3 kg/m2 Mona Yeungault Other [facility] Other 11-17-2022 11:30-0500 Body temperature 98.7 [degF] Mona Mikel Other [facility] Other 11-17-2022 11:30-0500 Body weight 87.54 kg Mona Mikel Other [facility] Other 11-17-2022 11:30-0500 Respiratory rate 18 /min Mona Mikel Other [facility] Other 11-17-2022 11:30-0500 SaO2% (BldA) [Mass fraction] 98 % Mona Mikel Other [facility] 09-28-2022 16:30-0500 Body height 157.48 cm Mona Yeungault Other [facility] 09-28-2022 16:30-0500 Body mass index (BMI) [Ratio] 35.3 kg/m2 Mona Yeungault Other [facility] Other 09-28-2022 16:30-0500 Body temperature 98 [degF] Mona Yeungault Other [facility] Other 09-28-2022 16:30-0500 Body weight 87.54 kg Mona Yeungault Other [facility] Other 09-28-2022 16:30-0500 Diastolic blood pressure 79 mm[Hg] Mona Yeungault Other [facility] Other 09-28-2022 16:30-0500 Respiratory rate 18 /min Mona Morin Other [facility] Other 09-28-2022 16:30-0500 SaO2% (BldA) [Mass fraction] 98 % Mona Yeungault Other [facility] Other 09-28-2022 16:30-0500 Systolic blood pressure 130 mm[Hg] Mona Mikel Other [facility] Other 07-14-2022 15:00-0400 Body height 157.48 cm Mona Yeungault Other [facility] Other 07-14-2022 15:00-0400 Body mass index (BMI) [Ratio] 35.66 kg/m2 Mona Mikel Other [facility] Other 07-14-2022 15:00-0400 Body weight 88.45 kg Mona Morin Other [facility] Other 07-14-2022 15:00-0400 Diastolic blood pressure 89 mm[Hg] Mona Morin Other [facility] Other 07-14-2022 15:00-0400 Respiratory rate 18 /min Mona Morin Other [facility] Other 07-14-2022 15:00-0400 SaO2% (BldA) [Mass fraction] 98 % Mona Morin Other [facility] 07-14-2022 15:00-0400 Systolic blood pressure 145 mm[Hg] Mona Morin Other [facility] 06-30-2022 12:00-0400 Body height 157.48 cm Mona Morin Other [facility] 06-30-2022 12:00-0400 Body mass index (BMI) [Ratio] 35.48 kg/m2 Mona Morin Other [facility] 06-30-2022 12:00-0400 Body temperature 97.7 [degF] Mona Morin Other [facility] Other 06-30-2022 12:00-0400 Body weight 88 kg Mona Morin Other [facility] Other 06-30-2022 12:00-0400 Diastolic blood pressure 87 mm[Hg] Mona Morin Other [facility] Other 06-30-2022 12:00-0400 Respiratory rate 18 /min Mona Morin Other [facility] Other 06-30-2022 12:00-0400 SaO2% (BldA) [Mass fraction] 97 % Mona Morin Other [facility] Other 06-30-2022 12:00-0400 Systolic blood pressure 136 mm[Hg] oMna Morin Other [facility] Other 02-03-2022 11:00-0400 Body height 157.48 cm Mona Morin Other [facility] Other 02-03-2022 11:00-0400 Body mass index (BMI) [Ratio] 35.84 kg/m2 Mona Morin Other [facility] 02-03-2022 11:00-0400 Body temperature 98.2 [degF] Mona Morin Other [facility] Other 02-03-2022 11:00-0400 Body weight 88.91 kg Mona Morin Other [facility] Other 02-03-2022 11:00-0400 Diastolic blood pressure 96 mm[Hg] Mona Morin Other [facility] Other 02-03-2022 11:00-0400 Respiratory rate 18 /min Mona Morin Other [facility] Other 02-03-2022 11:00-0400 SaO2% (BldA) [Mass fraction] 99 % Mona Morin Other [facility] Other 02-03-2022 11:00-0400 Systolic blood pressure 157 mm[Hg] Mona Morin Other [facility] Other 08-31-2021 10:00-0500 Body height 157.48 cm Kaylie Ginty Other [facility] Other 08-31-2021 10:00-0500 Body mass index (BMI) [Ratio] 35.66 kg/m2 Kaylie Ginty Other [facility] Other 08-31-2021 10:00-0500 Body temperature 98.7 [degF] Kaylie Ginty Other [facility] Other 08-31-2021 10:00-0500 Body weight 88.45 kg Kaylie Ginty Other [facility] Other 08-31-2021 10:00-0500 Respiratory rate 18 /min Kaylie Ginty Other [facility] Other 08-31-2021 10:00-0500 SaO2% (BldA) [Mass fraction] 95 % Kaylie Ginty Other [facility] Other Encounters Encounter Date Encounter Type Care Provider Facility Start: 04-12-2024 End: 04-12-2024 ambulatory TD BERUMEN [facility] Start: 02-28-2024 End: 02-28-2024 ambulatory Montana Bergeron MD Facility: [facility] Start: 02-23-2024 End: 02-23-2024 ambulatory ELSI AICHHOLZ Not Available Start: 02-07-2024 End: 02-07-2024 ambulatory ELSI AICHHOLZ Not Available Start: 02-03-2024 End: 02-03-2024 ambulatory KRUNAL MCARTHUR Not Available Start: 01-17-2024 End: 01-17-2024 ambulatory Montana Bergeron MD Facility:[facility] Start: 01-11-2024 End: 01-11-2024 ambulatory ELSI AICHHOLZ Not Available Start: 12-24-2023 Telephone encounter Saeid Gooden [facility] Start: 11-04-2023 End: 11-04-2023 ambulatory TD Brenda [facility] Start: 10-26-2023 End: 10-26-2023 ambulatory ELSI AICHHOLZ Not Available Start: 09-13-2023 End: 09-13-2023 ambulatory ELSI AICHHOLZ Not Available Start: 05-03-2023 End: 05-03-2023 ambulatory Priyanka Jones Other [facility] Other Start: 05-03-2023 Office outpatient visit 15 minutes Priyanka Jones [facility] Start: 01-22-2023 End: 01-23-2023 ambulatory MONA MORIN Facility: Start: 11-23-2022 End: 11-23-2022 ambulatory Mona Morin Other [facility] Start: 11-23-2022 Telephone encounter Mona hyde [facility] Start: 11-20-2022 End: 11-20-2022 ambulatory Mona Morin Other [facility] Other Start: 11-20-2022 Encounter by juan Morin [facility] Start: 11-17-2022 End: 11-18-2022 ambulatory MONA MORIN [facility] Other Start: 11-17-2022 Office outpatient visit 15 minutes Mona Morin [facility] Start: 10-06-2022 End: 10-06-2022 ambulatory Monamonty Morin Other [facility] Other Start: 10-06-2022 Telephone encounter Monamonty Palmerl t [facility] Start: 09-29-2022 End: 09-29-2022 ambulatory PHYSICIAN NO [facility] Work Phone: Start: 09-29-2022 End: 09-29-2022 Departed Referred PHYSICIAN NO [facility] [place] Work Phone: Start: 09-28-2022 End: 09-28-2022 ambulatory Monamonty Morin Other [facility] Other Start: 09-28-2022 Office outpatient visit 15 minutes Monamonty Morin [facility] Start: 09-14-2022 End: 09-14-2022 ambulatory Monamonty Morin Other [facility] Other Start: 09-14-2022 Telephone encounter Monamonty Palmerl t [facility] Start: 07-14-2022 End: 07-14-2022 ambulatory Monamonty Morin Other [facility] Other Start: 07-14-2022 Office outpatient visit 15 minutes Monamonty Morin [facility] Start: 06-30-2022 End: 06-30-2022 ambulatory Mona Mikel Other [facility] Other Start: 06-30-2022 Office outpatient visit 15 minutes Mona Mikel [facility] Start: 04-02-2022 End: 04-02-2022 ambulatory Mona Mikel Other [facility] Other Start: 04-02-2022 Telephone encounter Mona Palmerl t [facility] Start: 03-31-2022 Telephone encounter Monamonty Palmerl t [facility] Start: 03-31-2022 End: 04-01-2022 ambulatory MONA MORIN [facility] Other Start: 02-03-2022 End: 02-03-2022 ambulatory Mona Morin Other [facility] Other Start: 02-03-2022 Office outpatient visit 15 minutes Mona Morin [facility] Start: 12-10-2021 End: 12-10-2021 ambulatory Mona Morin Other [facility] Other Start: 12-10-2021 Telephone encounter Monamonty Palmerl t [facility] Start: 11-10-2021 End: 11-10-2021 ambulatory Mona Morin Other [facility] Other Start: 11-10-2021 Telephone encounter Monamonty Palmerl t [facility] Start: 09-03-2021 End: 09-03-2021 ambulatory Kaylie Ginty Other [facility] Other Start: 09-03-2021 Telephone encounter Kaylie Ginty [facility] Start: 08-31-2021 End: 08-31-2021 ambulatory Kaylie Ginty Other [facility] Other Start: 08-31-2021 Office outpatient visit 15 minutes Kaylie Ginty [facility] Procedures Date Procedure Procedure Detail Performing Clinician Start: 10-11-2017 Mammography Saeid hogue [facility] Start: 02-05-2017 Microscopic observat ion [Identifier] in Cervix by Cyto stain Saeid Gooden [employer] [facility] Plan of Treatment Date Care Activity Detail Author Start: 05-26-2024 Adult BMI Screening Adult BMI Screen ing [facility] Start: 05-26-2024 Tobacco Screening Tobacco Screening [facility] Start: 05-28-2023 Influenza vaccination Influenza Vacc ine [facility] Start: 09-29-2022 Aerobic Culture Aerobic Culture [facility] Start: 09-29-2022 Anaerobic Culture Anaerobic Culture [facility] Start: 09-29-2022 Microscopic observat ion [Identifier] in Unspecified specimen by Gram stain Gram Stain [facility] Start: 02-06-2020 Screening for malign ant neoplasm of cervix Pap Smear [facility] Start: 10-11-2018 Screening for malign ant neoplasm of breast Mammogram [facility] Start: 12-06-1995 DTaP,Tdap and Td Vaccines (1 - Tdap) DTaP,Tdap and Td Vaccines ( - Tdap) [facility] Start: 1994 Adult BMI Follow Up Plan Adult BMI Follow Up Plan [facility] Start: 1988 Depression Screening Depression Scre ening [facility] Bacteria identified in Unspecified specimen by Aerobe culture [facility] Bacteria identified in Unspecified specimen by Anaerobe culture [facility] Immunizations Immunization Date Immunization Notes Care Provider Fa tooty 10-01-2020 influenza virus vacc ine, unspecified formulation Saeid Gooden [facility] Payers Date Payer Category Payer Medicaid [facility] MEDICAID [facility] MEDICAID [id number] 2022-Present [address] [place] [address] [id number] 2022 Medicaid [id number] 2017 Unknown [id number] .[id number] 1975 Unknown [id number] 2..840.1.012610.3.579.2.5 93 1975 Unknown [id number] 2..840.1.980558.3.579.2.5 93 1975 Unknown [id number] 2.16.840.1.285803.3.579.2.5 93 1975 Unknown [id number] 2.16.840.1.677225.3.579.2.1 259 1975 Unknown [id number] 2.16.840.1.775729.3.579.2.1 259 1976 Unknown [id number] 2.16.840.1.533333.3.579.2.1 259 1976 Unknown [id number] 2.16.840.1.844660.3.579.2.1 259 1976 Unknown [id number] 2.16.840.1.704727.3.579.2.1 259 1976 Unknown [id number] 2.16.840.1.435890.3.579.2.1 259 1976 Unknown [id number] 2.16.840.1.940602.3.579.2.1 96 1976 Unknown [id number] 2.16.840.1.938888.3.579.2.1 96 1976 Unknown [id number] 2.16.840.1.989021.3.579.2.1 286 1976 Unknown [id number] 2.16.840.1.201212.3.579.2.1 286 1959 Unknown [id number] 2.16.840.1.209699.19 1959 Unknown [id number] Blue Cross Blue [facility] [id number] [id number] Self-pay Self Pay [id number] Unknown [id number] [id number] Social History Date Type Detail Facility Unknown if ever smoked [facility] Start: 11-06-2020 End: 05-26-2023 Sex Assigned At [facility] 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 documented in this encounter [facility] 12-24-2023 Telephone encount er Note Attempted to contact patient to reschedule appointment on 05/31/[address] Verdugo is out of the office. No Vm set up to leave a message. [facility] 05-03-2023 Evaluation note Encounter Date Diagnosis Assessment [...] fever. Patient/Parent verbalized understanding of treatment plan. [facility] 02-21-2023 Evaluation note* Encounter Date Diagnosis [...] weeks for the cough to go away [facility] 01-02-2023 Evaluation note* Encounter Date Diagnosis [...] obtained for C&S. Will call with results. [facility] 12-19-2022 Evaluation note* Encounter Date Diagnosis Assessment Notes Treatment Notes Treatment Clinical Notes Aug, Gastroesophageal ref lux disease, unspecified whether esophagitis present (ICD-10 - K21.9) Aug, PCOS (polycystic ovarian syndrome) (ICD-10 - E28.2) [facility] 10-18-2022 Evaluation note* Encounter Date Diagnosis Assessment Notes Treatment Notes Treatment Clinical Notes Jun, Fibromyalgia (ICD-10 - M79.7) Continue current treatment regimen. Printed off script to use as needed [facility] 10-04-2022 Evaluation note* Encounter Date Diagnosis Assessment Notes Treatment Notes Treatment Clinical Notes Jun, Primary hypertension (ICD-10 - I10) Jun, SJ (generalized anxiety disorder) (ICD-10 - F41.1) [facility] 07-07-2022 Evaluation note* Encounter Date Diagnosis Assessment Notes Treatment Notes Treatment Clinical Notes Mar, Right hip pain (ICD-10 - M25.551) [facility] 05-10-2022 Evaluation note* Encounter Date Diagnosis Assessment Notes Treatment Notes Treatment Clinical Notes January, Gastroesophageal ref lux disease, unspecified whether esophagitis present (ICD-10 - K21.9) Continue to take medication as directed. January, PCOS (polycystic ovarian syndrome) (ICD-10 - E28.2) Take medication as directed with food [facility] 03-16-2022 Evaluation note* Encounter Date Diagnosis Assessment Notes Treatment Notes Treatment Clinical Notes Nov, Sacral back pain (ICD-10 - M53.3) [facility] 02-14-2022 Evaluation note* Encounter Date Diagnosis Assessment Notes Treatment Notes Treatment Clinical Notes Oct, Gastroesophageal ref lux disease, unspecified whether esophagitis present (ICD-10 - K21.9) [facility] 02-14-2022 Evaluation note* Encounter Date Diagnosis Assessment Notes Treatment Notes Treatment Clinical Notes Oct, Sacral back pain (ICD-10 - M53.3) [facility] 2021 Evaluation note* Encounter Date Diagnosis [...] care instructions given in writting by [facility] Care At Home document. [facility] Other Evaluation noteNo InformationNort [employer] Other Evaluation noteNo assessment information available [facility] Work Phone: History general Narrative - Reported* Type Description Date Medical History asthma Medical History pcos Medical History Fibromyalgia Medical History Hypothyroidism - euthyroid Medical History chronic fatigue Surgical History gall bladder Surgical History vein removed in bilaterally Surgical History gastric sleeve Hospitalization History see above Hospitalization History CHILD X'S 5 [facility] Other InstructionsNot on filedocumented in this encounter [facility] Corporate[employer] SystemReason for visit NarrativeDermatology Referral Update [facility] Other Summary Purpose Family History No Family [...] section and content) DATE CREATED AUTHOR 03/27/2022 [facility] DATE CREATED AUTHOR AUTHOR'S ORGANIZ ATION 01/29/2023 [facility] pital DATE CREATED AUTHOR AUTHOR'S ORGANIZ ATION 02/24/2024 [facility] EPIC DATE CREATED AUTHOR AUTHOR'S ORGANIZ ATION 03/07/2024 [facility] DATE CREATED AUTHOR AUTHOR'S ORGANIZ ATION 04/16/2024 [facility] Care Teams (unrecognized sec tion and content) Team Status: Inactive Member Role Status Dates PHYSICIAN NO FAMILY Primary Care Provider Active CHRISTIANO Jha Attending Provider Active Team Status: Active Member Role Status Dates PHYSICIAN NO FAMILY Primary Care Provider Active 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 [facility] provides no warranty or guarantee of the accuracy or completeness of information in this document.
== END 2024-06-12 08:48 | disposition home or self-care (01) ==
LOC: US 08:48
PROVIDERS: PCP Radiology Diagnostic Radiology; Visit Provider Nurse Practitioner
DX: N91.2 Amenorrhea, unspecified (principal)
CPT/HCPCS: 76830

== ENCOUNTER 2024-06-14 09:15 | Outpatient (OUT) | payer BC, MEDICAID, SELFPAY ==
--- NOTE | 2024-06-14 07:21 | V.VEINS.HP ---
Vital Signs 06/14/24 10:02 Height 5 ft Weight 85.7 kg BMI 36.9 Varicose Veins Patient in today for follow up ultrasound of bilateral lower extremities following treatment of Varithena/microfoam completed on 06/07/24 and 01/31/24. Lionel Wood MD personally performed the services described in this documentation, as scribed by Leslie Denis RDMS in my presence and it is both accurate and complete. ILeslie RDMS, am scribing for, and in the presence of, Dr. Lionel Morse and in the presence of the patient. thigh: bilateral, knee: bilateral, calf: bilateral, ankle: bilateral and peng: bilateral aching, burning, cramping, sharp and other (throbbing) 5 1 year Worsened in recent months: Yes standing bed rest, elevating extremities, compression stockings and exercise Reports leg edema and other (spider veins) History of lower extremity trauma: No Superficial thrombophlebitis: No Family history of varicose veins: yes (mother) Has patient had previous lower extremity venous surgery: Yes (surgical excision 15 years ago, EVLT bilateral AASV, EVLT right SSV and GSV) Patient has previously received the following treatment(s) for lower extremity varicose veins: Reports vein ablation, phlebectomy, sclerotherapy, foam therapy and laser therapy Does patient have a history of : yes Does patient intend to have future pregnancies: no Has patient had lower extremity venous scan with relux testing: Yes Support hose used: Yes Problems walking or doing physical activity: No How does it affect you: Has to frequently stop, rest, and elevate legs Do you walk much: Yes Do you stand much: Yes Medication compliance: fair Large amounts of Vitamin K: No Review of Systems ROS Narrative Lionel Wodo MD personally performed the services described in this documentation, as scribed by Leslie Denis RDMS in my presence and it is both accurate and complete. Leslie Wood RDMS, am scribing for, and in the presence of, Dr. Lionel Morse and in the presence of the patient. Status of ROS 10 or more systems reviewed and unremarkable except as noted in history and below Cardiovascular Reports: edema Neurological Reports: weakness in extremities PFSH [facility] Medical History (Updated 06/14/24 @ 07:25 by Leslie Denis) Phlebitis and thrombophlebitis of superficial vessels of right lower extremity ?I80.01 - Phlebitis and thrombophlebitis of superficial vessels of right lower extremity (ICD-10) Varicose vein of leg ?I83.90 - Asymptomatic varicose veins of unspecified lower extremity (ICD-10) Diabetes ?E11.9 - Type 2 diabetes mellitus without complications (ICD-10) PCOS (polycystic ovarian syndrome) ?E28.2 - Polycystic ovarian syndrome (ICD-10) Migraine ?G43.909 - Migraine, unspecified, not intractable, without status migrainosus (ICD-10) Hyperlipidemia ?E78.5 - Hyperlipidemia, unspecified (ICD-10) Hypothyroid ?E03.9 - Hypothyroidism, unspecified (ICD-10) HTN (hypertension) ?I10 - Essential (primary) hypertension (ICD-10) History of gastroesophageal reflux (GERD) ?Z87.19 - Personal history of other diseases of the digestive system (ICD-10) 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, unspecified (ICD-10) Depression ?F32.A - Depression, unspecified (ICD-10) Chronic sinusitis ?J32.9 - Chronic sinusitis, unspecified (ICD-10) Chronic fatigue syndrome with fibromyalgia ?G93.32 - Myalgic encephalomyelitis/chronic fatigue syndrome (ICD-10) ?M79.7 - Fibromyalgia (ICD-10) Surgical History (Updated 06/07/24 @ 09:55 by Garrett Arellano) Status post laser ablation of incompetent vein ?Z98.890 - Other specified postprocedural states (ICD-10) History of vein stripping ?Z98.890 - Other specified postprocedural states (ICD-10) H/O gastric sleeve ?Z90.3 - Acquired absence of stomach [part of] (ICD-10) Hx of cholecystectomy ?Z90.49 - Acquired absence of other specified parts of digestive tract (ICD-10) Meds Home Medications and Allergies Home Medications ?Medication ?Instructions ?Recorded ?Confirmed ?Type atorvastatin 10 mg tablet 10 mg PO QAM 01/11/24 02/28/24 History cetirizine 10 mg tablet 10 mg PO DAILY 01/11/24 02/28/24 History levothyroxine 50 mcg tablet 50 mcg PO QAM 01/11/24 02/28/24 History lisinopril 2.5 mg tablet 2.5 mg PO DAILY 01/11/24 02/28/24 History minocycline 100 mg capsule 100 mg PO QPM 01/11/24 02/28/24 History omeprazole 20 mg capsule,delayed 20 mg PO DAILY 01/11/24 02/28/24 History release ropinirole 0.25 mg tablet 0.25 mg PO QPM 01/11/24 02/28/24 History semaglutide 1 mg/dose (4 mg/3 mL) 1 mg subcut QWEEK 01/11/24 02/28/24 History subcutaneous pen injector (Ozempic) sertraline 100 mg tablet 200 mg PO QAM 01/11/24 02/28/24 History tizanidine 4 mg tablet 8 mg PO DAILY 01/11/24 02/28/24 History magnesium 200 mg tablet 800 mg PO DAILY 03/08/24 03/08/24 History Allergies Allergy/AdvReac Type Severity Reaction Status Date / Time No Known Drug Allergies Allergy Verified 02/28/24 09:38 Exam Narrative Exam Narrative: Patient has no complaints today. Lionel Wood MD personally performed the services described in this documentation, as scribed by Leslie Denis RDMS in my presence and it is both accurate and complete. Leslie Wood RDMS am scribing for, and in the presence of, Dr. Lionel Morse and in the presence of the patient. Constitutional Documenting provider has reviewed patient's vital signs: yes Common normals: oriented x3 Cardio Peripheral pulses: posterior tibial pulses present and dorsalis pedis pulses present Extremity Common normals: normal capillary refill General: edema Right lower extremity: lower leg Right lower leg: inspection and palpation Left lower extremity: lower leg Left lower leg: inspection and palpation Neuro Common normals: oriented x3 Results Imaging Venous US: Radiologist's impression: Chemically induced thrombus in multiple veins in right leg. Thrombus extends into PTVs mid to proximal calf. Chemically induced thrombus in left GSV. Lionel Wood MD personally performed the services described in this documentation, as scribed by Lesile Denis RDMS in my presence and it is both accurate and complete. Leslie Wood RDMS am scribing for, and in the presence of, Dr. Lionel Morse and in the presence of the patient. Assessment and Plan Assessment and Plan (1) Phlebitis and thrombophlebitis of superficial vessels of right lower extremity: Plan Plan is for patient to return for sclerotherapy of bilateral legs on 06/19/24. ILionel MD personally performed the services described in this documentation, as scribed by Leslie Denis RDMS in my presence and it is both accurate and complete. I, Leslie Denis RDMS, am scribing for, and in the presence of, Dr. Lionel Morse and in the presence of the patient.
--- NOTE | 2024-06-14 09:16 | VEIN_ITS ---
Patient Name: JONNATHAN SEPULVEDA MR#: [id number] : 1975 Exam Date: 06/14/2024 Ordering Doctor: DR LIONEL MORSE M.D. RADIOLOGY REPORT PROCEDURE: [facility] EST [facility] - OFFICE VISIT FOLLOW UP COMPARISON: [facility] EST [facility], 01/17/2024. [facility] EST [facility], 12/27/2023. PROGRESS NOTES: The patient reports no significant problems following micro foam chemical ablation of right leg incompetent varicose veins. The patient did wear her compression stockings and exercise. Patient did not require oral analgesics. Physical exam demonstrates multiple thrombosed varicose veins. Residual reticular and spider veins are observed. No areas of erythema or warmth to suggest cellulitis or thrombophlebitis. No active ulceration Review of the ultrasound performed the same day demonstrates occlusive thrombus extending throughout the treated bilateral leg varicose veins. There to segments of deep vein thrombus identified in the right posterior tibial veins measuring up to 8 cm in length but far removed from a popliteal vein. This was discussed with the patient and I recommended 325 milligram of aspirin once per day to prevent clot propagation. I cannot determine if the deep vein thrombus is related to extension of the foam or represents thrombus extension through associated perforating veins The patient expressed a desire to proceed with treatment of reticular and spider veins with injection sclerotherapy. VEIN/[facility] EST LMTD IMPRESSION: 1. Successful ablation of bilateral treated incompetent varicose veins with small segment of minimal right leg deep vein thrombus involving the posterior tibial veins, far removed from the popliteal vein. 2. Persistent bilateral reticular and spider veins. PLAN: 1. 325 milligram aspirin once per day for 2 weeks 2. Injection sclerotherapy of reticular and spider veins Nurse notes, history and physical were reviewed and confirmed, see attached forms. The nurse was present throughout the physical exam and consultation Dictated by: Lionel Morse MD on 06/14/2024 at 10:42 Approved by: Lionel Morse MD on 06/14/2024 at 10:47
--- NOTE | 2024-06-14 09:16 | VEIN_ITS ---
Patient Name: JONNATHAN SEPULVEDA MR#: [id number] : 1975 Exam Date: 06/14/2024 Ordering Doctor: DR LIONEL MORSE M.D. RADIOLOGY REPORT PROCEDURE: VC EXT VENOUS BROWN LIMITED COMPARISON: None. INDICATIONS: I80.03 - Phlebitis and thrombophlebitis of superficial veins bilateral legs TECHNIQUE: Lower extremity clayton scale and Duplex Doppler evaluation of the deep venous system from the inguinal ligament through the calf veins. FINDINGS: REGION: Right lower extremity. THROMBI: Acute occlusive thrombus. Chemically induced thrombus in multiple varicose veins right leg. Thrombus extends into PTVs mid to proximal lower leg in an 8 cm segment approximately 5 cm from popliteal. COMPRESSIBILITY: Non-compressible segments. FLOW: Areas on no flow. OTHER: Negative. REGION: Left lower extremity. THROMBI: Chronic appearing thrombus. Chemically induced thrombus in distal GSV and varicose veins. COMPRESSIBILITY: Non-compressible segments. FLOW: Areas on no flow. OTHER: Patent varicose vein distal medial thigh measures 3.8 mm. Varicose vein medial knee measures 3.1 mm. *Exam performed in accordance with [facility] practice guidelines- Peripheral venous ultrasound, December 21, 2009. CONCLUSION: 1. Post ablation occlusion of treated bilateral varicose veins 2. Two areas of deep vein thrombus in right leg posterior tibial veins measuring up to 8 cm in length but significantly removed from the popliteal vein Dictated by: Lionel Morse MD on 06/14/2024 at 09:58 Approved by: Lionel Morse MD on 06/14/2024 at 10:00
--- OUTSIDE RECORDS SUMMARY | 2024-06-14 09:21 | XMS_ITS | CCD ---
Author Organization [facility] Care Team Providers Care Mixer Diamond Powder Name Role Phone Kaylie Echeverria Unavailable Mona Morin Unavailable NO FAMILY, PHYSICIAN Primary Care Provider Unava ilCHRISTIANO Lazaro Attending Provider MONA MORIN Primary Care Unavailable MISC, DR ELIAS Attending Unavailable MISC, DR ELIAS Admitting Unavailable AICHHOLZ, GEEK SQUAD [employer] ELSI Consulting Unavailable MONA MORIN Consulting Unavailable MONA MORIN Primary Care Unavailable MONA MORIN Admitting Unavailable MONA MORIN Attending Unavailable MONA MORIN Primary Care Unavailable MONA MORIN Admitting Unavailable MONA MORIN Attending Unavailable MONA MORIN Consulting Unavailable Priyanka Jones Unavailable Mikel SEPARATOR INSERTER-Mona KENNEDY Primary Care Provide r ELSI SUAREZ [...] Facility (5 sources) Cephalexin Drug Allergy rash [facility] Other (12 sources) Cephalexin Drug Allergy rash [facility] Other (1 source) Sulfamethoxazole / Trimethoprim Drug Allergy 3 [facility] Medications Current Medications Medication Drug Class(es) Dates Sig (Normalized) Sig (Original) [id number] 200 actuat albuterol 0.09 mg/actuat metered dose [...] oral solution (2 sources) alpha-Adrenergic Agonist, Uncompetitive W-mhvhas-V-aspartate Receptor Antagonist, Sigma-1 Agonist Start: 08-31-2021 take [...] pyogenes Org specific cx Ql (Throat) Negative [place] [facility] Other Quick Strep [facility] Other INSULINon 01-26-2023 Insulin 21.3 uIU/mL Normal 2.6-24.9 [facility] Comment on above: Performed By: #### I NSULIN #### [facility] [address] [place] [address] Dr. Yvan Manzano CORTISOLon 01-23-2023 Cortisol 11.2 ug/dL Normal 6.2-19.4 [facility] Comment on above: Result Comment: [place] Note: The reference interval and flagging for this test is for an AM collection. If this is a PM collection please use: Cortisol PM: 2.3-11.9 [facility] also offers: [id number]: Cortisol- AM [id number]: Cortisol- PM Performed By: #### C BC #### [facility] [address] [place] [address] Dr. Yvan Manzano CBC AUTO DIFFon 01-22-2023 BASO # 0.1 103/ul Normal 0.0-0.1 [facility] Comment on above: Performed By: #### C BC #### [facility] [address] [place] [address] Dr. Yvan Manzano Basophils/100 WBC (Bld) 0.9 % Normal 0.2-2.0 [facility] Comment on above: Performed By: #### C BC #### [facility] [address] [place] [address] Dr. Yvan Manzano EO # 0.3 103/ul Normal 0.0-0.7 [facility] Comment on above: Performed By: #### C BC #### [facility] [address] [place] [address] Dr. Yvan Manzano Eosinophils/100 WBC (Bld) 5.7 % Normal 0.9-7.0 [facility] Comment on above: Performed By: #### C BC #### [facility] [address] [place] [address] Dr. Yvan Manzano Erythrocyte distribution width (RBC) [Ratio] 14.6 % Normal 11.0-15.0 [facility] Comment on above: Performed By: #### C BC #### [facility] [address] [place] [address] Dr. Yvan Manzano Hematocrit (Bld) [Volume fraction] 36.8 % Normal 36.0-48.0 [facility] Comment on above: Performed By: #### C BC #### [facility] [address] [place] [address] Dr. Yvan Manzano Hemoglobin (Bld) [Mass/Vol] 11.4 g/dL Critically low 12.0-16.0 [facility] Comment on above: Performed By: #### C BC #### [facility] [address] [place] [address] Dr. Yvan Manzano IG # 0.02 10e3/ul Normal 0.00-0.03 [facility] Comment on above: Performed By: #### C BC #### [facility] [address] [place] [address] Dr. Yvan Manzano IG % 0.3 % Normal 0.0-0.5 [facility] Comment on above: Performed By: #### C BC #### [facility] [address] [place] [address] Dr. Yvan Manzano LYMPH # 1.5 103/ul Normal 1.2-3.8 [facility] Comment on above: Performed By: #### C BC #### [facility] [address] [place] [address] Dr. Yvan Manzano Lymphocytes/100 WBC (Bld) 25.3 % Normal 20.5-60.0 [facility] Comment on above: Performed By: #### C BC #### [facility] [address] [place] [address] Dr. Yvan Manzano MANUAL DIFF REQ NO Normal [facility] Comment on above: Performed By: #### C BC #### [facility] [address] [place] [address] Dr. Yvan Manzano MCH (RBC) [Entitic mass] 25.2 pg Critically low 26.7-34.0 [facility] Comment on above: Performed By: #### C BC #### [facility] [address] [place] [address] Dr. Yvan Manzano MCHC (RBC) [Mass/Vol] 31.0 g/dL Normal 29.9-35.2 [facility] Comment on above: Performed By: #### C BC #### [facility] [address] [place] [address] Dr. Yvan Manzano MCV (RBC) [Entitic vol] 81.4 fL Normal 81.0-99.0 [facility] Comment on above: Performed By: #### C BC #### [facility] [address] [place] [address] Dr. Yvan Manzano MONO # 0.4 103/ul Normal 0.3-0.8 [facility] Comment on above: Performed By: #### C BC #### [facility] [address] [place] [address] Dr. Yvan Manzano Monocytes/100 WBC (Bld) 7.7 % Normal 1.7-12.0 [facility] Comment on above: Performed By: #### C BC #### [facility] [address] [place] [address] Dr. Yvan Manzano NEUT # 3.5 103/ul Normal 1.4-6.5 [facility] Comment on above: Performed By: #### C BC #### [facility] [address] [place] [address] Dr. Yvan Manzano Neutrophils/100 WBC (Bld) 60.1 % Normal 43.0-75.0 [facility] Comment on above: Performed By: #### C BC #### [facility] [address] [place] [address] Dr. Yvan Manzano Platelet mean volume (Bld) [Entitic vol] 8.8 fL Critically low 9.5-13.5 [facility] Comment on above: Performed By: #### C BC #### [facility] [address] [address] [address] Yvan Manzano PLT 347 103/ul Normal 150-450 [facility] Comment on above: Performed By: #### C BC #### [facility] [address] [place] [address] Dr. Yvan Manzano RBC 4.52 106/ul Normal 4.20-5.40 [facility] Comment on above: Performed By: #### C BC #### [facility] [address] [place] [address] Dr. Yvan Manzano WBC 5.7 103/ul Normal 4.0-11.0 [facility] Comment on above: Performed By: #### C BC #### [facility] [address] [place] [address] Dr. Yvan Manzano FREE T4on 01-22-2023 Free T4 [Mass/Vol] 0.84 ng/dL Normal 0.76-1.46 [facility] Comment on above: Performed By: #### F T4 #### [facility] [address] [place] [address] Dr. Yvan Manzano LIPID PROFILEon 01-22-2023 CHOL-HDL RATIO NORM SEE BELOW Normal [facility] Comment on above: Result Comment: 3.3 - 4.4 LOW RISK 4.4 - 7.1 AVERAGE RISK 7.1 - 11.0 MODERATE RISK >11.0 HIGH RISK Performed By: #### T SH, LIPID #### [facility] [address] [place] [address] Dr. Yvan Manzano Cholesterol [Mass/Vol] 264 mg/dL Critically high <=200 [facility] Comment on above: Performed By: #### T SH, LIPID #### [facility] [address] [place] [address] Dr. Yvan Manzano Cholesterol in HDL [Mass/Vol] 52 mg/dL Normal 40-60 [facility] Comment on above: Performed By: #### T SH, LIPID #### [facility] [address] [place] [address] Dr. Yvan Manzano Cholesterol in LDL [Mass/Vol] 173.6 mg/dL Normal [facility] Comment on above: Performed By: #### T SH, LIPID #### [facility] [address] [address] [address] Yvan Manzano Cholesterol.total/Ch olesterol in HDL [Mass ratio] 5.1 {ratio} Normal [facility] Comment on above: Performed By: #### T SH, LIPID #### [facility] [address] [place] [address] Dr. Yvan Manzano HDL NORMAL > or = 60 mg/dl - LOW CARDIOVASCULAR RISK <40 mg/dl - HIGH CARDIOVASCULAR RISK Normal [facility] Comment on above: Performed By: #### T SH, LIPID #### [facility] [address] [address] [address] Yvan Manzano LDL CALC NORMAL SEE BELOW Normal [facility] Comment on above: Result Comment: <100 mg/dl OPTIMAL 100 - 129 mg/dl NEAR OR ABOVE OPTIMAL 130 - 159 mg/dl BORDERLINE HIGH 160 - 189 mg/dl HIGH >190 mg/dl VERY HIGH Performed By: #### T SH, LIPID #### [facility] [address] [place] [address] Dr. Yvan Manzano Triglyceride [Mass/Vol] 192 mg/dL Critically high <=150 [facility] Comment on above: Performed By: #### T SH, LIPID #### [facility] [address] [place] [address] Dr. Yvan Manzano VLDL CALC 38.4 mg/dL Normal [facility] Comment on above: Performed By: #### T SH, LIPID #### [facility] [address] [place] [address] Dr. Yvan Manzano TSHon 01-22-2023 TSH 5.749 uIU/mL Critically high 0.358-3.740 [facility] Comment on above: Performed By: #### T SH, LIPID #### [facility] [address] [place] [address] Dr. Yvan Manzano GLYCOHEMOGLOBIN A1Con 2022 ADA RECOMMENDATION SEE BELOW Normal [facility] Comment on above: Result Comment: ADA RECOMMENDED LIMIT 4.0 - 6.0 ADA THERAPEUTIC TARGET < 7.0 ACTION SUGGESTED > 7.0 Performed By: #### A 1C #### [facility] [address] [place] [address] Dr. Yvan Manzano Glucose [Mass/Vol] 137 mg/dL Normal [facility] Comment on above: Performed By: #### A 1C #### [facility] [address] [place] [address] Dr. Yvan Manzano HbA1c (Bld) [Mass fraction] 6.4 % Critically high 4.5-6.2 [facility] Comment on above: Performed By: #### A 1C #### [facility] [address] [place] [address] Dr. Yavn Manzano PROF 14(COMP METB)on 023 Albumin [Mass/Vol] 3.4 g/dL Normal 3.4-5.0 [facility] Comment on above: Performed By: #### C MP #### [facility] [address] [place] [address] Dr. Yvan Manzano Albumin/Globulin [Mass ratio] 0.9 {ratio} Normal [facility] Comment on above: Performed By: #### C MP #### [facility] [address] [place] [address] Dr. Yvan Manzano ALP [Catalytic activity/Vol] 74 U/L Normal 46-116 [facility] Comment on above: Performed By: #### C MP #### [facility] [address] [place] [address] Dr. Yvan Manzano ALT [Catalytic activity/Vol] 25 U/L Normal 14-59 [facility] Comment on above: Performed By: #### C MP #### [facility] [address] [place] [address] Dr. Yvan Manzano Anion gap [Moles/Vol] 9.4 mmol/L Normal [facility] Comment on above: Performed By: #### C MP #### [facility] [address] [place] [address] Dr. Yvan Manzano AST [Catalytic activity/Vol] 17 U/L Normal 15-37 [facility] Comment on above: Performed By: #### C MP #### [facility] [address] [address] [address] Yvan Manzano Bilirubin [Mass/Vol] 0.1 mg/dL Critically low 0.2-1.0 [facility] Comment on above: Performed By: #### C MP #### [facility] [address] [address] [address] Yvan Manzano Calcium [Mass/Vol] 9.2 mg/dL Normal 8.5-10.1 [facility] Comment on above: Performed By: #### C MP #### [facility] [address] [address] [address] Yvan Manzano Chloride [Moles/Vol] 101 mmol/L Normal 98-107 [facility] Comment on above: Performed By: #### C MP #### [facility] [address] [place] [address] Dr. Yvan Manzano CO2 [Moles/Vol] 30.4 mmol/L Normal 21.0-32.0 [facility] Comment on above: Performed By: #### C MP #### [facility] [address] [address] [address] Yvan Manzano Creatinine [Mass/Vol] 0.71 mg/dL Normal 0.55-1.02 [facility] Comment on above: Performed By: #### C MP #### [facility] [address] [place] [address] Dr. Yvan Manzano EGFR-AF SOUTH AFRICAN >60 Normal >=60 [facility] Comment on above: Performed By: #### C MP #### [facility] [address] [address] [address] Yvan Manzano EGFR-NON AF SOUTH [place]FRICAN >60 Normal >=60 [facility] Comment on above: Performed By: #### C MP #### [facility] [address] [place] [address] Dr. Yvan Manzano Globulin (S) [Mass/Vol] 4.0 g/dL Normal [facility] Comment on above: Performed By: #### C MP #### [facility] [address] [place] [address] Dr. Yvan Manzano Glucose [Mass/Vol] 138 mg/dL Critically high 74-106 [facility] Comment on above: Performed By: #### C MP #### [facility] [address] [address] [address] Yvan Manzano Potassium [Moles/Vol] 3.8 mmol/L Normal 3.5-5.1 [facility] Comment on above: Performed By: #### C MP #### [facility] [address] [address] [address] Yvan Manzano Protein [Mass/Vol] 7.4 g/dL Normal 6.4-8.2 [facility] Comment on above: Performed By: #### C MP #### [facility] [address] [address] [address] Yvan Manzano Sodium [Moles/Vol] 137 mmol/L Normal 136-145 [facility] Comment on above: Performed By: #### C MP #### [facility] [address] [address] [address] Yvan Manzano Urea nitrogen [Mass/Vol] 13.0 mg/dL Normal 7.0-18.0 [facility] Comment on above: Performed By: #### C MP #### [facility] [address] [address] [address] Yvan Manzano Urea nitrogen/Creatinine [Mass ratio] 18.3 mg/mg Normal [facility] Comment on above: Performed By: #### C MP #### [facility] [address] [address] [address] Yvan Manzano LIPID PROFILEon 03-31-2022 CHOL-HDL RATIO NORM SEE BELOW Normal [facility] Comment on above: Result Comment: 3.3 - 4.4 LOW RISK 4.4 - 7.1 AVERAGE RISK 7.1 - 11.0 MODERATE RISK >11.0 HIGH RISK Performed By: #### C MP, LIPID #### [facility] [address] [place] [address] Dr. Yvan Manzano Cholesterol [Mass/Vol] 229 mg/dL Critically high <=200 [facility] Comment on above: Performed By: #### C MP, LIPID #### [facility] [address] [address] [address] Yvan Manzano Cholesterol in HDL [Mass/Vol] 51 mg/dL Normal 40-60 [facility] Comment on above: Performed By: #### C MP, LIPID #### [facility] [address] [address] [address] Yvan Manzano Cholesterol in LDL [Mass/Vol] 150.4 mg/dL Normal [facility] Comment on above: Performed By: #### C MP, LIPID #### [facility] [address] [address] [address] Yvan Manzano Cholesterol.total/Ch olesterol in HDL [Mass ratio] 4.5 {ratio} Normal [facility] Comment on above: Performed By: #### C MP, LIPID #### [facility] [address] [place] [address] Dr. Yvan Manzano HDL NORMAL > or = 60 mg/dl - LOW CARDIOVASCULAR RISK <40 mg/dl - HIGH CARDIOVASCULAR RISK Normal [facility] Comment on above: Performed By: #### C MP, LIPID #### [facility] [address] [address] [address] Yvan Mnazano LDL CALC NORMAL SEE BELOW Normal [facility] Comment on above: Result Comment: <100 mg/dl OPTIMAL 100 - 129 mg/dl NEAR OR ABOVE OPTIMAL 130 - 159 mg/dl BORDERLINE HIGH 160 - 189 mg/dl HIGH >190 mg/dl VERY HIGH Performed By: #### C MP, LIPID #### [facility] [address] [address] [address] Yvan Manzano Triglyceride [Mass/Vol] 138 mg/dL Normal <=150 [facility] Comment on above: Performed By: #### C MP, LIPID #### [facility] [address] [place] [address] Dr. Yvan Manzano VLDL CALC 27.6 mg/dL Normal [facility] Comment on above: Performed By: #### C MP, LIPID #### [facility] [address] [address] [address] Yvan Manzano MICROALB CREAT RATIO RANDOMo n 03-31-2022 mALB 1.4 mg/L Normal <=30.0 [facility] Comment on above: Performed By: #### M CRR #### [facility] [address] [address] [address] Yvan CARABALLO CR RATIO 6.0 mg/g Normal 0.0-29.9 [facility] Comment on above: Performed By: #### M CRR #### [facility] [address] [address] [address] Yvan Manzano MALB CR RATIO RANGE SEE BELOW Normal [facility] Comment on above: Result Comment: NO M ICROALBUMINURIA 0-29 MG/G CLINICAL MICROALBUMINURIA 30-300 MG/G MACROALBUMINURIA >300 MG/G Performed By: #### M CRR #### [facility] [address] [place] [address] Dr. Yvan Manzano URINE CREAT 232.88 mg/dL Normal 20.00-300.00 [facility] Comment on above: Performed By: #### M CRR #### [facility] [address] [place] [address] Dr. Yvan Manzano PROF 14(COMP METB)on 022 Albumin [Mass/Vol] 3.6 g/dL Normal 3.4-5.0 [facility] Comment on above: Performed By: #### C MP, LIPID #### [facility] [address] [place] [address] Dr. Yvan Manzano Albumin/Globulin [Mass ratio] 0.9 {ratio} Normal [facility] Comment on above: Performed By: #### C MP, LIPID #### [facility] [address] [place] [address] Dr. Yvan Manzano ALP [Catalytic activity/Vol] 63 U/L Normal 46-116 [facility] Comment on above: Performed By: #### C MP, LIPID #### [facility] [address] [address] [address] Yvan Manzano ALT [Catalytic activity/Vol] 33 U/L Normal 14-59 [facility] Comment on above: Performed By: #### C MP, LIPID #### [facility] [address] [address] [address] Yvan Manzano Anion gap [Moles/Vol] 11.7 mmol/L Normal [facility] Comment on above: Performed By: #### C MP, LIPID #### [facility] [address] [address] [address] Yvan Manzano AST [Catalytic activity/Vol] 23 U/L Normal 15-37 [facility] Comment on above: Performed By: #### C MP, LIPID #### [facility] [address] [address] [address] Yvan Manzano Bilirubin [Mass/Vol] 0.2 mg/dL Normal 0.2-1.0 [facility] Comment on above: Performed By: #### C MP, LIPID #### [facility] [address] [place] [address] Dr. Yvan Manzano Calcium [Mass/Vol] 9.5 mg/dL Normal 8.5-10.1 [facility] Comment on above: Performed By: #### C MP, LIPID #### [facility] [address] [place] [address] Dr. Yvan Manzano Chloride [Moles/Vol] 102 mmol/L Normal 98-107 [facility] Comment on above: Performed By: #### C MP, LIPID #### [facility] [address] [place] [address] Dr. Yvan Manzano CO2 [Moles/Vol] 28.0 mmol/L Normal 21.0-32.0 [facility] Comment on above: Performed By: #### C MP, LIPID #### [facility] [address] [place] [address] Dr. Yvan Manzano Creatinine [Mass/Vol] 0.71 mg/dL Normal 0.55-1.02 [facility] Comment on above: Performed By: #### C MP, LIPID #### [facility] [address] [address] [address] Yvan Manzano EGFR-AF SOUTH AFR[place] >60 Normal >=60 [facility] Comment on above: Performed By: #### C MP, LIPID #### [facility] [address] [address] [address] Yvan Manzano EGFR-NON AF [place]OU[place]FR[place] >60 Normal >=60 [facility] Comment on above: Performed By: #### C MP, LIPID #### [facility] [address] [address] [address] Yvan Manzano Globulin (S) [Mass/Vol] 4.0 g/dL Normal [facility] Comment on above: Performed By: #### C MP, LIPID #### [facility] [address] [address] [address] Yvan Manzano Glucose [Mass/Vol] 87 mg/dL Normal 74-106 [facility] Comment on above: Performed By: #### C MP, LIPID #### [facility] [address] [address] [address] Yvan Manzano Potassium [Moles/Vol] 3.7 mmol/L Normal 3.5-5.1 [facility] Comment on above: Performed By: #### C MP, LIPID #### [facility] [address] [address] [address] Yvan Manzano Protein [Mass/Vol] 7.6 g/dL Normal 6.4-8.2 [facility] Comment on above: Performed By: #### C MP, LIPID #### [facility] [address] [place] [address] Dr. Yvan Manzano Sodium [Moles/Vol] 138 mmol/L Normal 136-145 [facility] Comment on above: Performed By: #### C MP, LIPID #### [facility] [address] [address] [address] Yvan Manzano Urea nitrogen [Mass/Vol] 14.0 mg/dL Normal 7.0-18.0 [facility] Comment on above: Performed By: #### C MP, LIPID #### [facility] [address] [address] [address] Yvan Manzano Urea nitrogen/Creatinine [Mass ratio] 19.7 mg/mg Normal [facility] Comment on above: Performed By: #### C MP, LIPID #### [facility] [address] [address] [address] Yvan Manzano XR hip RT min 2V(w/wo pelvis )*on 03-26-2022 XR hip RT min 2V(w/wo pelvis)* [facility] Main [address] [address] XRay Report Signed Patient: Tatiana Sepulveda MR#: [id number] : 1975 Acct:[id number] Age/Sex: 46 / F ADM Date: 03/26/22 [...] Michael Harper M.D.03/26/2022 3:38 PM Dictation Location: [place] [address] Transcribed By: [facility] 03/26/22 1538 Dictated By: Michael Harper DO 03/26/22 1534 Signed By: 03/26/22 1538 Normal [facility] XR sacrum coccyx min 2Von XR sacrum coccyx min 2V [facility] Main [place] [id number] XRay Report Signed Patient: Tatiana Sepulveda MR#: [id number] : 1975 Acct:[id number] Age/Sex: 45 / F ADM Date: 09/29/21 [...] No acute bony injury. Impression dictated by: aLron Villegas M.D.09/29/2021 4:16 PM Dictation Location: [place] [address] Transcribed By: [facility] 09/29/21 161 Dictated By: Laron Villegas II, MD 09/29/21 161 Signed By: 09/29/21 161 [facility] COVID Quick Testingon 2020 Result Negative [facility] Other Vital Signs Date Time Vital Sign Value Performing Clinician Facility 05-03-2023 09:05-0400 Body height 157.48 cm Priyanka Jones Other [facility] Other 05-03-2023 09:05-0400 Body mass index (BMI) [Ratio] 35.02 kg/m2 Priyanka Jones Other [facility] Other 05-03-2023 09:05-0400 Body temperature 97.5 [degF] Priyanka Jones Other [facility] Other 05-03-2023 09:05-0400 Body weight 86.86 kg Priyanka Jones Other [facility] Other 05-03-2023 09:05-0400 Diastolic blood pressure 76 mm[Hg] Priyanka Olveraley Other [facility] Other 05-03-2023 09:05-0400 Respiratory rate 18 /min Priyanka Olveraley Other [facility] Other 05-03-2023 09:05-0400 SaO2% (BldA) [Mass fraction] 100 % Priyanka Olveraley Other [facility] Other 05-03-2023 09:05-0400 Systolic blood pressure 117 mm[Hg] Priyanka Olveraley Other [facility] Other 11-17-2022 11:30-0500 Body height 157.48 cm Mona Yeungault Other [facility] Other 11-17-2022 11:30-0500 Body mass index (BMI) [Ratio] 35.3 kg/m2 Mona Yeungault Other [facility] Other 11-17-2022 11:30-0500 Body temperature 98.7 [degF] Mona Mikel Other [facility] Other 11-17-2022 11:30-0500 Body weight 87.54 kg Mona Mikel Other [facility] Other 11-17-2022 11:30-0500 Respiratory rate 18 /min Mona Mikel Other [facility] Other 11-17-2022 11:30-0500 SaO2% (BldA) [Mass fraction] 98 % Mona Mikel Other [facility] Other 09-28-2022 16:30-0500 Body height 157.48 cm Mona Yeungault Other [facility] Other 09-28-2022 16:30-0500 Body mass index (BMI) [Ratio] 35.3 kg/m2 Mona Yeungault Other [employer] Other 09-28-2022 16:30-0500 Body temperature 98 [degF] Mona Yeungault Other [employer] Other 09-28-2022 16:30-0500 Body weight 87.54 kg Mona Yeungault Other [employer] Other 09-28-2022 16:30-0500 Diastolic blood pressure 79 mm[Hg] Mona Yeungault Other [employer] Other 09-28-2022 16:30-0500 Respiratory rate 18 /min Mona Morin Other [employer] Other 09-28-2022 16:30-0500 SaO2% (BldA) [Mass fraction] 98 % Mona Yeungault Other [employer] Other 09-28-2022 16:30-0500 Systolic blood pressure 130 mm[Hg] Mona Mikel Other [employer] Other 07-14-2022 15:00-0400 Body height 157.48 cm Mona Yeungault Other [employer] Other 07-14-2022 15:00-0400 Body mass index (BMI) [Ratio] 35.66 kg/m2 Mona Mikel Other [employer] Other 07-14-2022 15:00-0400 Body weight 88.45 kg Mona Morin Other [employer] Other 07-14-2022 15:00-0400 Diastolic blood pressure 89 mm[Hg] Mona Morin Other [employer] Other 07-14-2022 15:00-0400 Respiratory rate 18 /min Mona Morin Other [employer] Other 07-14-2022 15:00-0400 SaO2% (BldA) [Mass fraction] 98 % Mona Morin Other [employer] Other 07-14-2022 15:00-0400 Systolic blood pressure 145 mm[Hg] Mona Morin Other [employer] Other 06-30-2022 12:00-0400 Body height 157.48 cm Mona Morin Other [employer] Other 06-30-2022 12:00-0400 Body mass index (BMI) [Ratio] 35.48 kg/m2 Mona Morin Other [employer] Other 06-30-2022 12:00-0400 Body temperature 97.7 [degF] Mona Morin Other [employer] Other 06-30-2022 12:00-0400 Body weight 88 kg Mona Morin Other [employer] Other 06-30-2022 12:00-0400 Diastolic blood pressure 87 mm[Hg] Mona Morin Other [employer] Other 06-30-2022 12:00-0400 Respiratory rate 18 /min Mona Morin Other [employer] Other 06-30-2022 12:00-0400 SaO2% (BldA) [Mass fraction] 97 % Mona Morin Other [employer] Other 06-30-2022 12:00-0400 Systolic blood pressure 136 mm[Hg] Mona Morin Other [employer] Other 02-03-2022 11:00-0400 Body height 157.48 cm Mona Morin Other [employer] Other 02-03-2022 11:00-0400 Body mass index (BMI) [Ratio] 35.84 kg/m2 Mona Morin Other [employer] Other 02-03-2022 11:00-0400 Body temperature 98.2 [degF] Mona Morin Other [employer] Other 02-03-2022 11:00-0400 Body weight 88.91 kg Mona Morin Other [employer] Other 02-03-2022 11:00-0400 Diastolic blood pressure 96 mm[Hg] Mona Morin Other [employer] Other 02-03-2022 11:00-0400 Respiratory rate 18 /min Mona Morin Other [employer] Other 02-03-2022 11:00-0400 SaO2% (BldA) [Mass fraction] 99 % Mona Morin Other [employer] Other 02-03-2022 11:00-0400 Systolic blood pressure 157 mm[Hg] Mona Morin Other [employer] Other 08-31-2021 10:00-0500 Body height 157.48 cm Kaylie Ginty Other [employer] Other 08-31-2021 10:00-0500 Body mass index (BMI) [Ratio] 35.66 kg/m2 Kaylie Ginty Other [employer] Other 08-31-2021 10:00-0500 Body temperature 98.7 [degF] Kaylie Ginty Other [employer] Other 08-31-2021 10:00-0500 Body weight 88.45 kg Kaylie Ginty Other [employer] Other 08-31-2021 10:00-0500 Respiratory rate 18 /min Kaylie Ginty Other [employer] Other 08-31-2021 10:00-0500 SaO2% (BldA) [Mass fraction] 95 % Kaylie Ginty Other [employer] Other Encounters Encounter Date Encounter Type Care Provider Facility Start: 04-12-2024 End: 04-12-2024 ambulatory TD [facility]UM[facility] Start: 02-28-2024 End: 02-28-2024 ambulatory Montana Bergeron MD Facility: [facility] Start: 02-23-2024 End: 02-23-2024 ambulatory ELSI AICHHOLZ Not Available Start: 02-07-2024 End: 02-07-2024 ambulatory ESLI AICHHOLZ Not Available Start: 02-03-2024 End: 02-03-2024 ambulatory KRUNAL MCARTHUR Not Available Start: 01-17-2024 End: 01-17-2024 ambulatory Montana Bergeron MD Facility:[facility] Start: 01-11-2024 End: 01-11-2024 ambulatory ELSI AICHHOLZ Not Available Start: 12-24-2023 Telephone encounter Saeid Gooden [facility] Start: 11-04-2023 End: 11-04-2023 ambulatory TD Brenda [facility] Start: 10-26-2023 End: 10-26-2023 ambulatory ELSI AICHHOLZ Not Available Start: 09-13-2023 End: 09-13-2023 ambulatory ELSI AICHHOLZ Not Available Start: 05-03-2023 End: 05-03-2023 ambulatory Priyanka Jones Other [employer] Other Start: 05-03-2023 Office outpatient visit 15 minutes Priyanka Jones [facility] Start: 01-22-2023 End: 01-23-2023 ambulatory MONA MORIN Facility: Start: 11-23-2022 End: 11-23-2022 ambulatory Mona Morin Other [employer] Other Start: 11-23-2022 Telephone encounter Mona hyde [facility] Start: 11-20-2022 End: 11-20-2022 ambulatory Mona Morin Other [employer] Other Start: 11-20-2022 Encounter by juan Morin [facility] Start: 11-17-2022 End: 11-18-2022 ambulatory MONA MORIN [facility] [employer] Other Start: 11-17-2022 Office outpatient visit 15 minutes Mona Morin [facility] Start: 10-06-2022 End: 10-06-2022 ambulatory Monamonty Morin Other [employer] Other Start: 10-06-2022 Telephone encounter Monamonty Palmerl t [facility] Start: 09-29-2022 End: 09-29-2022 ambulatory PHYSICIAN NO [facility] Work Phone: Start: 09-29-2022 End: 09-29-2022 Departed Referred PHYSICIAN NO [facility] [place] Work Phone: Start: 09-28-2022 End: 09-28-2022 ambulatory Monamonty Morin Other [employer] Other Start: 09-28-2022 Office outpatient visit 15 minutes Monamonty Morin [facility] Start: 09-14-2022 End: 09-14-2022 ambulatory Monamonty Morin Other [employer] Other Start: 09-14-2022 Telephone encounter Monamonty Palmerl t [facility] Start: 07-14-2022 End: 07-14-2022 ambulatory Monamonty Morin Other [employer] Other Start: 07-14-2022 Office outpatient visit 15 minutes Monamonty Morin [facility] Start: 06-30-2022 End: 06-30-2022 ambulatory Mona Mikel Other [employer] Other Start: 06-30-2022 Office outpatient visit 15 minutes Moan Mikel [facility] Start: 04-02-2022 End: 04-02-2022 ambulatory Mona Mikel Other [employer] Other Start: 04-02-2022 Telephone encounter Mona Palmerl t [facility] Start: 03-31-2022 Telephone encounter Monamonty Palmerl t [facility] Start: 03-31-2022 End: 04-01-2022 ambulatory MONA MORIN [facility] Other Start: 02-03-2022 End: 02-03-2022 ambulatory Mona Morin Other [employer] Other Start: 02-03-2022 Office outpatient visit 15 minutes Mona Morin [facility] Start: 12-10-2021 End: 12-10-2021 ambulatory Mona Morin Other [employer] Other Start: 12-10-2021 Telephone encounter Monamonty Palmerl t [facility] Start: 11-10-2021 End: 11-10-2021 ambulatory Mona Morin Other [employer] Other Start: 11-10-2021 Telephone encounter Monamonty Palmerl t [facility] Start: 09-03-2021 End: 09-03-2021 ambulatory Kaylie Ginty Other [employer] Other Start: 09-03-2021 Telephone encounter Kaylie Ginty [facility] Start: 08-31-2021 End: 08-31-2021 ambulatory Kaylie Ginty Other [employer] Other Start: 08-31-2021 Office outpatient visit 15 minutes Kaylie Ginty [facility] Procedures Date Procedure Procedure Detail Performing Clinician Start: 10-11-2017 Mammography Saeid hogue [employer] Start: 02-05-2017 Microscopic observat ion [Identifier] in Cervix by Cyto stain Saeid Gooden [employer] Plan of Treatment Date Care Activity Detail Author Start: 05-26-2024 Adult BMI Screening Adult BMI Screen ing [facility] Start: 05-26-2024 Tobacco Screening Tobacco Screening [facility] Start: 05-28-2023 Influenza vaccination Influenza Vacc ine [facility] Start: 09-29-2022 Aerobic Culture Aerobic Culture [facility] Start: 09-29-2022 Anaerobic Culture Anaerobic Culture [facility] Start: 09-29-2022 Microscopic observat ion [Identifier] in Unspecified specimen by Gram stain Gram Stain [facility] Start: 02-06-2020 Screening for malign ant neoplasm of cervix Pap Smear [facility] Start: 10-11-2018 Screening for malign ant neoplasm of breast Mammogram [facility] Start: 12-06-1995 DTaP,Tdap and Td Vaccines (1 - Tdap) DTaP,Tdap and Td Vaccines ( - Tdap) [facility] Start: 1994 Adult BMI Follow Up Plan Adult BMI Follow Up Plan [facility] Start: 1988 Depression Screening Depression Scre ening [facility] Bacteria identified in Unspecified specimen by Aerobe culture [facility] Bacteria identified in Unspecified specimen by Anaerobe culture [facility] Immunizations Immunization Date Immunization Notes Care Provider Fa tooty 10-01-2020 influenza virus vacc ine, unspecified formulation Saeid Gooden [facility] Payers Date Payer Category Payer Medicaid [facility]ICA[facility] MED[facility] [id number] 2022-Present [address] [place] [address] [id number] 2022 Medicaid [id number] 2017 Unknown [id number] 1976 Unknown [id number] 2..[id number] 93 1976 Unknown [id number] 2..840.1.518755.3.579.2.5 93 1976 Unknown [id number] 2.16.840.1.114340.3.579.2.5 93 1976 Unknown [id number] 2.16.840.1.863373.3.579.2.1 259 1976 Unknown [id number] 2.16.840.1.371179.3.579.2.1 259 1976 Unknown [id number] 2.16.840.1.794754.3.579.2.1 259 1976 Unknown [id number] 2.16.840.1.926343.3.579.2.1 259 1976 Unknown [id number] 2.16.840.1.463551.3.579.2.1 259 1976 Unknown [id number] 2.16.840.1.891106.3.579.2.1 259 1976 Unknown [id number] 2.16.840.1.468319.3.579.2.1 96 1976 Unknown [id number] 2.16.840.1.593827.3.579.2.1 96 1976 Unknown [id number] 2.16.840.1.762362.3.579.2.1 286 1976 Unknown [id number] 2.16.840.1.702431.3.579.2.1 286 1959 Unknown [id number] 2.16.840.1.806038.19 1959 Unknown [id number] Blue [employer] Blue [facility] [id number] Self-pay Self Pay [id number] Unknown [id number] Social History Date Type Detail Facility Unknown if ever smoked [employer] Other Start: 11-06-2020 End: 05-26-2023 Sex Assigned At [facility] [employer] Other Start: 1975 Sex Assigned At Female F [facility] Start: 08-23-2017 Tobacco smoking stat us NHIS Never smoked tobacco [facility] Start: 08-23-2017 Tobacco use and exposure Smokeless tobacco non-user [facility] Start: 05-26-2023 Alcohol intake 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 documented in this encounter [facility] 12-24-2023 Telephone encount er Note Attempted to contact patient to reschedule appointment on 05/31/[address] Verdugo is out of the office. No Vm set up to leave a message. [facility] 05-03-2023 Evaluation note Encounter Date Diagnosis [...] fever. Patient/Parent verbalized understanding of treatment plan. [facility] Other 02-21-2023 Evaluation note* Encounter Date Diagnosis [...] weeks for the cough to go away [employer] Other 01-02-2023 Evaluation note* Encounter Date Diagnosis [...] obtained for C&S. Will call with results. [employer] Other 12-19-2022 Evaluation note* Encounter Date Diagnosis Assessment Notes Treatment Notes Treatment Clinical Notes Aug, Gastroesophageal ref lux disease, unspecified whether esophagitis present (ICD-10 - K21.9) Aug, PCOS (polycystic ovarian syndrome) (ICD-10 - E28.2) [facility] Other 10-18-2022 Evaluation note* Encounter Date Diagnosis Assessment Notes Treatment Notes Treatment Clinical Notes Jun, Fibromyalgia (ICD-10 - M79.7) Continue current treatment regimen. Printed off script to use as needed [facility] Other 10-04-2022 Evaluation note* Encounter Date Diagnosis Assessment Notes Treatment Notes Treatment Clinical Notes Jun, Primary hypertension (ICD-10 - I10) Jun, SJ (generalized anxiety disorder) (ICD-10 - F41.1) [facility] Other 07-07-2022 Evaluation note* Encounter Date Diagnosis Assessment Notes Treatment Notes Treatment Clinical Notes Mar, Right hip pain (ICD-10 - M25.551) [facility] Other 05-10-2022 Evaluation note* Encounter Date Diagnosis Assessment Notes Treatment Notes Treatment Clinical Notes January, Gastroesophageal ref lux disease, unspecified whether esophagitis present (ICD-10 - K21.9) Continue to take medication as directed. January, PCOS (polycystic ovarian syndrome) (ICD-10 - E28.2) Take medication as directed with food [employer] Other 03-16-2022 Evaluation note* Encounter Date Diagnosis Assessment Notes Treatment Notes Treatment Clinical Notes Nov, Sacral back pain (ICD-10 - M53.3) [employer] Other 02-14-2022 Evaluation note* Encounter Date Diagnosis Assessment Notes Treatment Notes Treatment Clinical Notes Oct, Gastroesophageal ref lux disease, unspecified whether esophagitis present (ICD-10 - K21.9) [facility] Other 02-14-2022 Evaluation note* Encounter Date Diagnosis Assessment Notes Treatment Notes Treatment Clinical Notes Oct, Sacral back pain (ICD-10 - M53.3) [employer] Other 2021 Evaluation note* Encounter Date Diagnosis [...] [facility] document. [employer] Other Evaluation noteNo InformationNort [facility] Other Evaluation noteNo assessment information available [facility] Work Phone: History general Narrative - Reported* Type Description Date Medical History asthma Medical History pcos Medical History Fibromyalgia Medical History Hypothyroidism - euthyroid Medical History chronic fatigue Surgical History gall bladder Surgical History vein removed in bilaterally Surgical History gastric sleeve Hospitalization History see above Hospitalization History CHILD X'S 5 [employer] Other InstructionsNot on filedocumented in this encounter [facility] Smart[employer] SystemReason for visit NarrativeDermatology Referral Update [employer] Other Summary Purpose Family History No Family [...] section and content) DATE CREATED AUTHOR 03/27/2022 [facility] DATE CREATED AUTHOR AUTHOR'S ORGANIZ ATION 01/29/2023 [facility] DATE CREATED AUTHOR AUTHOR'S ORGANIZ ATION 02/24/2024 [facility] EPIC DATE CREATED AUTHOR AUTHOR'S ORGANIZ ATION 03/07/2024 [facility] DATE CREATED AUTHOR AUTHOR'S ORGANIZ ATION 04/16/2024 [facility] Care Teams (unrecognized sec tion and content) Team Status: Inactive Member Role Status Dates PHYSICIAN NO FAMILY Primary Care Provider Active CHRISTIANO Jha Attending Provider Active Team Status: Active Member Role Status Dates PHYSICIAN NO FAMILY Primary Care Provider Active [employer] Relationship Specialty Start Date End Date Mona Morin APRN-FNP [address] [place] [address] PCP - General Family Medicine 01/08/21 Goals [...] BE BASED ON THE PRIMARY CLINICAL RECORDS. [facility]. provides no warranty or guarantee of the accuracy or completeness of information in this document.
[2024-06-14 10:02] VITALS: BMI 36.9
--- NOTE | 2024-06-14 10:10 | P.DS_ITS ---
Discharge Plan Discharge Disposition: Home, Self-Care Outpatient Diagnostics: VC INJ Sclerosing SOLMULT Vein (Routine) Timeframe: 1 Month Facility: [facility] - Location: [facility]in Center Ordered By: Lionel Morse Follow Up Appointments: 06/19/24 Plan of Treatment: Sclerotherapy of bilateral legs Print Language: Danish Discharge Date/Time: 06/14/24 10:11
== END 2024-06-14 10:11 | disposition home or self-care (01) ==
PROVIDERS: PCP Radiology Diagnostic Radiology; Visit Provider Radiology Diagnostic Radiology
DX: I80.03 Phlebitis and thrombophlebitis of superficial vessels of lower extremities, bilateral (principal)
CPT/HCPCS: 93970; G0463

== ENCOUNTER 2024-06-19 10:48 | Outpatient (OUT) | payer BC, MEDICAID, SELFPAY ==
--- NOTE | 2024-06-16 08:50 | V.VEINS.HP ---
Vital Signs 06/19/24 11:38 BP 117/73 BP Location Left Brachial BP Position Sitting BP Cuff Size Adult BP Source Manual Cuff Respiration 16 Pulse 91 H Pulse Source Monitor Pulse Oximetry (%) 98 Oxygen Delivery Method Room Air Varicose Veins Patient in today for sclerotherapy Lionel Wood MD personally performed the services described in this documentation, as scribed by Garrett Arellano RN in my presence and it is both accurate and complete. IGarrett RN, am scribing for, and in the presence of, Dr. Lionel Morse and in the presence of the patient. thigh: bilateral, knee: bilateral, calf: bilateral, ankle: bilateral and peng: bilateral aching, burning, cramping, sharp and other (throbbing) 5 1 year Worsened in recent months: Yes standing bed rest, elevating extremities, compression stockings and exercise Reports leg edema and other (spider veins) History of lower extremity trauma: No Superficial thrombophlebitis: No Family history of varicose veins: yes (mother) Has patient had previous lower extremity venous surgery: Yes (surgical excision 15 years ago, EVLT bilateral AASV, EVLT right SSV and GSV) Patient has previously received the following treatment(s) for lower extremity varicose veins: Reports vein ablation, phlebectomy, sclerotherapy, foam therapy and laser therapy Does patient have a history of : yes Does patient intend to have future pregnancies: no Has patient had lower extremity venous scan with relux testing: Yes Support hose used: Yes Problems walking or doing physical activity: No How does it affect you: Has to frequently stop, rest, and elevate legs Do you walk much: Yes Do you stand much: Yes Medication compliance: fair Large amounts of Vitamin K: No Review of Systems ROS Narrative Lionel Wood MD personally performed the services described in this documentation, as scribed by Garrett Arellano RN in my presence and it is both accurate and complete. IGarrett RN, am scribing for, and in the presence of, Dr. Lionel Mores and in the presence of the patient. Status of ROS 10 or more systems reviewed and unremarkable except as noted in history and below Cardiovascular Reports: edema Neurological Reports: weakness in extremities [facility] Medical History (Updated 06/16/24 @ 11:44 by Garrett Arellano) Varicose veins of bilateral lower extremities with pain ?I83.813 - Varicose veins of bilateral lower extremities with pain (ICD-10) Phlebitis and thrombophlebitis of superficial vessels of right lower extremity ?I80.01 - Phlebitis and thrombophlebitis of superficial vessels of right lower extremity (ICD-10) Varicose vein of leg ?I83.90 - Asymptomatic varicose veins of unspecified lower extremity (ICD-10) Diabetes ?E11.9 - Type 2 diabetes mellitus without complications (ICD-10) PCOS (polycystic ovarian syndrome) ?E28.2 - Polycystic ovarian syndrome (ICD-10) Migraine ?G43.909 - Migraine, unspecified, not intractable, without status migrainosus (ICD-10) Hyperlipidemia ?E78.5 - Hyperlipidemia, unspecified (ICD-10) Hypothyroid ?E03.9 - Hypothyroidism, unspecified (ICD-10) HTN (hypertension) ?I10 - Essential (primary) hypertension (ICD-10) History of gastroesophageal reflux (GERD) ?Z87.19 - Personal history of other diseases of the digestive system (ICD-10) 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, unspecified (ICD-10) Depression ?F32.A - Depression, unspecified (ICD-10) Chronic sinusitis ?J32.9 - Chronic sinusitis, unspecified (ICD-10) Chronic fatigue syndrome with fibromyalgia ?G93.32 - Myalgic encephalomyelitis/chronic fatigue syndrome (ICD-10) ?M79.7 - Fibromyalgia (ICD-10) Surgical History (Updated 06/19/24 @ 11:39 by Garrett Arellano) S/P sclerotherapy of varicose veins ?Z98.890 - Other specified postprocedural states (ICD-10) ?Z86.79 - Personal history of other diseases of the circulatory system (ICD-10) Status post laser ablation of incompetent vein ?Z98.890 - Other specified postprocedural states (ICD-10) History of vein stripping ?Z98.890 - Other specified postprocedural states (ICD-10) H/O gastric sleeve ?Z90.3 - Acquired absence of stomach [part of] (ICD-10) Hx of cholecystectomy ?Z90.49 - Acquired absence of other specified parts of digestive tract (ICD-10) Meds Home Medications and Allergies Home Medications ?Medication ?Instructions ?Recorded ?Confirmed ?Type atorvastatin 10 mg tablet 10 mg PO QAM 01/11/24 02/28/24 History cetirizine 10 mg tablet 10 mg PO DAILY 01/11/24 02/28/24 History levothyroxine 50 mcg tablet 50 mcg PO QAM 01/11/24 02/28/24 History lisinopril 2.5 mg tablet 2.5 mg PO DAILY 01/11/24 02/28/24 History minocycline 100 mg capsule 100 mg PO QPM 01/11/24 02/28/24 History omeprazole 20 mg capsule,delayed 20 mg PO DAILY 01/11/24 02/28/24 History release ropinirole 0.25 mg tablet 0.25 mg PO QPM 01/11/24 02/28/24 History semaglutide 1 mg/dose (4 mg/3 mL) 1 mg subcut QWEEK 01/11/24 02/28/24 History subcutaneous pen injector (Ozempic) sertraline 100 mg tablet 200 mg PO QAM 01/11/24 02/28/24 History tizanidine 4 mg tablet 8 mg PO DAILY 01/11/24 02/28/24 History magnesium 200 mg tablet 800 mg PO DAILY 03/08/24 03/08/24 History Allergies Allergy/AdvReac Type Severity Reaction Status Date / Time No Known Drug Allergies Allergy Verified 02/28/24 09:38 Exam Narrative Exam Narrative: Lionel Wood MD personally performed the services described in this documentation, as scribed by Garrett Arellano RN in my presence and it is both accurate and complete. Garrett Wood RN, am scribing for, and in the presence of, Dr. Lionel Morse and in the presence of the patient. Constitutional Documenting provider has reviewed patient's vital signs: yes Common normals: oriented x3 Cardio Peripheral pulses: posterior tibial pulses present and dorsalis pedis pulses present Extremity Common normals: normal capillary refill General: edema Right lower extremity: lower leg Right lower leg: inspection and palpation Left lower extremity: lower leg Left lower leg: inspection and palpation Neuro Common normals: oriented x3 Assessment and Plan Assessment and Plan (1) Varicose veins of bilateral lower extremities with pain: Plan Plan of care complete. Patient to f/u in future as necessary. Lionel Wood MD personally performed the services described in this documentation, as scribed by Garrett Arellano RN in my presence and it is both accurate and complete. I, Garrett Arellano RN, am scribing for, and in the presence of, Dr. Lionel Morse and in the presence of the patient. Procedures Procedure Instructions Procedures sclerotherapy: Risks and benefits of the procedure were discussed at length and informed written consent was obtained.? Time-out procedure was performed and the correct patient and procedure were confirmed.? Staff present during time-out: Garrett Arellano RN and Lionel Morse MD.? Patient prepped and procedure performed in usual sterile fashion. Injections performed by and Garrett Arellano RN Sclerosing Agent:?? 4cc 0.5% Polidocanol Site Injected: right leg Number of Injections: 9 Anesthesia: Supercooled air The patient tolerated the procedure well without complication.? Hemostasis was obtained and thigh-high compression stocking was applied by patient.? Instructed patient to wear stocking for at least 96 hours and sleep with it and only remove for showering.? Will wear stocking for 2 weeks.? The patient verbalizes understanding and states they will comply.? Patient was given post-procedure instructions. Patient was discharged in good condition.? Plan of care complete at this time. Patient to f/u in future as necessary.
--- NOTE | 2024-06-16 09:02 | W.VEIN ---
Discharge Plan Discharge Disposition: Home, Self-Care Plan of Treatment: Plan of care complete. Patient Instructions: Polidocanol (By injection) Print Language: Ethiopian Discharge Date/Time: 06/19/24 11:42
--- NOTE | 2024-06-19 10:48 | VEIN_ITS ---
[address] [address] Patient Name: JONNATHAN SEPULVEDA MRN: [id number] date: 1975 Sex: F Assigned Patient Location: Current Patient Location: Accession/Order Number: [id number] Exam Date: 06/19/2024 10:48 Report Date: 06/19/2024 12:47 At the request of: TRE VALDOVINOS Procedure: VC INJ Sclerosing SOLMULT Vein EXAMINATION: VC INJ Sclerosing SOLMULT Vein HISTORY: I83.813 - Varicose veins of bilateral lower extremities w... COMPARISON: No relevant comparison available. TECHNIQUE: The risks and benefits of the procedure were explained at length to the patient and informed written consent was obtained. Garrett Arellano was present and assisted. The procedure was performed under sterile technique. The patient's leg was wrapped with Coban and postprocedural verbal and written instructions provided. SCLEROSANT: 4 cc, 0.5% polidocanol VEIN(S) INJECTED: 9 veins in the right leg VISUALIZATION: Ultrasound was not used to visualize the sclerosant ANESTHESIA: Supercooled air COMPLICATIONS: None VEIN/VC INJ Sclerosing SOLMULT Vein IMPRESSION: Technically successful sclerotherapy as described Electronically authenticated by: TRE VALDOVINOS Date: 06/19/2024 12:47
[2024-06-19 11:38] VITALS: BP 117/73; PULSE 91; O2SAT 98
== END 2024-06-19 11:42 | disposition home or self-care (01) ==
LOC: VC 10:48
PROVIDERS: PCP Radiology Diagnostic Radiology; Visit Provider Radiology Diagnostic Radiology
DX: I83.813 Varicose veins of bilateral lower extremities with pain (principal)
CPT/HCPCS: 36471

== ENCOUNTER 2024-08-08 15:10 | Outpatient (OUT) | payer BC, MEDICAID, SELFPAY ==
[2024-08-08 19:09] LABS: Estimated Average Glucose 111 mg/dL; Glycohemoglobin A1C 5.5 % (4.5-6.2)
== END 2024-08-08 15:11 | disposition home or self-care (01) ==
LOC: LAB 15:11
PROVIDERS: PCP Nurse Practitioner; Visit Provider Nurse Practitioner
DX: E11.9 Type 2 diabetes mellitus without complications (principal)
CPT/HCPCS: 36415; 83036

== ENCOUNTER 2024-09-13 09:09 | Outpatient (OUT) | payer BC, MEDICAID, SELFPAY ==
--- NOTE | 2024-09-13 09:11 | MM_ITS ---
Patient Name: JONNATHAN SEPULVEDA MR#: [id number] : 1975 Exam Date: 09/13/2024 Ordering Doctor: KENDRA Moncada CNP RADIOLOGY REPORT PROCEDURE: MM TOMOSYNTHESIS SCREENING BI COMPARISON: MG MAMM SCREEN BROWN W CAD, 10/11/2017. INDICATIONS: Screening Calculator Name NCI Breast Cancer Risk Assessment Tool 5 Year Breast Cancer Risk 0.80% Lifetime Breast Cancer Risk 8.40% Personal Breast Cancer No Personal Ovarian Cancer No Treatments None Family Cancers None LOCATION: [facility] BREAST COMPOSITION: There are scattered areas of fibroglandular density. FINDINGS: DIAGNOSTIC CATEGORY 1--NEGATIVE. RIGHT BREAST: No significant suspicious finding. No significant change has occurred. LEFT BREAST: No significant suspicious finding. No significant change has occurred. RECOMMENDATIONS: ROUTINE MAMMOGRAM AND CLINICAL EVALUATION IN 12 MONTHS. PLEASE NOTE: A NORMAL MAMMOGRAM DOES NOT EXCLUDE THE POSSIBILITY OF BREAST CANCER. A CLINICALLY SUSPICIOUS PALPABLE LUMP SHOULD BE BIOPSIED. Dictated by: Hugo Gant M.D. on 09/13/2024 at 16:10 Approved by: Hugo Gant M.D. on 09/13/2024 at 16:12
== END 2024-09-13 09:10 | disposition home or self-care (01) ==
LOC: MAMMO 09:09
PROVIDERS: PCP Nurse Practitioner; Visit Provider Nurse Practitioner
DX: Z12.31 Encounter for screening mammogram for malignant neoplasm of breast (principal)
CPT/HCPCS: 77063; 77067

== ENCOUNTER 2024-10-27 08:39 | Outpatient (OUT) | payer BC, MEDICAID, SELFPAY ==
--- NOTE | 2024-10-27 08:43 | MR_ITS ---
The [address] [address] Patient Name: JONNATHAN SEPULVEDA MRN: [facility]:[id number] date: 1975 Sex: F Assigned Patient Location: MRI Current Patient Location: MRI Accession/Order Number: [id number] Exam Date: 10/27/2024 08:53 Report Date: 10/27/2024 17:39 At the request of: CHRISTINE ZIMMERMAN Procedure: MR head/brain wo con EXAM: MR head/brain wo con HISTORY: Speech Disturbance, Transient Alteration Of Awareness COMPARISON: None. TECHNIQUE: Sagittal T1-weighted and axial T2-weighted, turboFLAIR and diffusion-weighted with ADC map images of the brain were obtained without intravenous contrast. Findings: These images reveal no intracranial mass lesion, mass effect, midline shift or abnormal extraaxial fluid collection. The ventricles and sulci are normal for age. No abnormality of reduced diffusion. Normal intravascular flow voids. There is a few, punctate foci of high signal intensity on T2/FLAIR in the subcortical and periventricular white matter, as seen in the left frontal lobe, axial image 17, the left frontal lobe, axial image 16, and the right frontal lobe, axial image 18. MR/MR head/brain wo con Impression: No acute intracranial pathology. Few, punctate foci of high signal intensity in the white matter, as above, favoring sequelae of chronic small vessel ischemic disease. Electronically authenticated by: ILANA HOLMAN Date: 10/27/2024 17:39
--- OUTSIDE RECORDS SUMMARY | 2024-10-27 08:58 | XMS_ITS | CCD ---
Author Organization [facility] Care Team Providers Care Quality Assurance Analyst Name Role Phone Kaylie Echeverria Unavailable Mona Morin Unavailable NO FAMILY, PHYSICIAN Primary Care Provider Unava ilCHRISTIANO Lazaro Attending Provider [phone] MIKEL, MONA Primary Care Unavailable MISC, DR ELIAS Attending Unavailable MISC, DR ELIAS Admitting Unavailable AICHHOLZ, PHARMACY SALES REPRESENTATIVE HALIMA Consulting Unavailable MIKEL MONA Consulting Unavailable MIKEL, MONA Primary Care Unavailable MIKEL, MONA Admitting Unavailable MIKEL, MONA Attending Unavailable MIKEL, MONA Primary Care Unavailable MIKEL, MONA Admitting Unavailable MIKEL, MONA Attending Unavailable MIKEL, MONA Consulting Unavailable Priyanka Jones Unavailable Mikel INTERNATIONAL MARKETING COORDINATOR-BARREL REAMER, Mona Primary Care Provide r Elyssa MCBRIDE, [place] Mosqueda Attending Unavailable Elyssa MCBRIDE, [place] Mosqueda Attending Unavailable TD BERUMEN Attending Unavailable MIKEL, MONA Referring Unavailable MIKEL, MONA Primary Care Unavailable TD BERUMEN Attending Unavailable MIKEL, MONA Referring Unavailable MIKEL, MONA Primary Care Unavailable Coral ROUND CUTTER OPERATOR, Halima Unavailable Jenna MCBRIDE, Javier Primary Care Provider Coral ROUND CUTTER OPERATOR, Hlaima Unavailable MICH VERDUGO Attending Unavailable MIKEL, MONA Referring Unavailable MIKEL, MONA Primary Care Unavailable Coral ROUND CUTTER OPERATOR, Halima Unavailable Becky Pace DO Unavailable KRUNAL GUZMAN Attending Unavailable KRUNAL GUZMAN Referring Unavailable AICHARGELIA, HALIMA Attending Unavailable KRUNAL GUZMAN Attending Unavailable AICHHOLZ, HALIMA Attending Unavailable AICHHOLZ, HALIMA Attending Unavailable LYUBOV, KRUNAL Attending Unavailable AICHHOLZ, HALIMA Attending Unavailable AICHHOLZ, HALIMA Attending Unavailable AICHHOLZ, HALIMA Attending Unavailable Allergies Allergy Classification Reported Allergen(s) Allergy Type Date of Onset Reaction(s) Facility (5 sources) Cephalexin Drug Allergy rash [facility] Other (12 sources) Cephalexin Drug Allergy rash [facility] Other (1 source) Sulfamethoxazole / Trimethoprim Drug Allergy 3 [facility] Repository Medications Current Medications Medication Drug Class(es) Dates Sig (Normalized) Sig (Original) [id number] 200 actuat albuterol 0.09 mg/actuat metered dose [...] Active amitriptyline hydrochloride 50 mg oral tablet (20 sources) Tricyclic Antidepressant Start: 07-24-2024 take 1 tablet by mouth once daily, then take 8 tablets by mouth in the evening amitriptyline (ELAVIL) 50 mg tablet Indications: Fibromyalgia TAKE 1 TABLET BY MOUTH DAILY EIGHT IN THE EVENING 90 tablet 3 07/24/2024 Active Start: 05-26-2023 End: 07-24-2024 take 1 tablet by mouth once daily, then take 8 tablets by mouth in the evening amitriptyline (ELAVIL) 50 mg tablet Indications: Fibromyalgia TAKE 1 TABLET BY MOUTH DAILY EIGHT IN THE EVENING 38 tablet 06/19/2024 07/24/2024 Discontinued (Reorder) take 1 tablet by alexandria th every twenty-four hours amoxicillin 500 mg oral capsule (1 source) Penicillin-class Antibacterial Start: 05-03-2023 take 2 capsules by mouth every twelve hours Amoxicillin 500 MG 2 capsules Orally Twice a day for 7 days Apr, Active atorvastatin 10 mg oral tablet (20 sources) HMG-CoA Reductase Inhibitor Start: 02-23-2024 End: 08-24-2024 take 1 tablet by mouth in the evening atorvastatin (Lipitor) 10 MG tablet Indications: Type 2 diabetes mellitus without complication, without long-term current use of insulin (CMS/HCC) Take 1 tablet (10 mg) by mouth in the evening 30 tablet 5 07/25/2024 Active benzonatate 100 mg oral capsule (1 source) Non-narcotic Antitussive Start: 09-04-2021 take 1 capsule by mouth three times daily as needed Tessalon Perles 100 MG 1 capsule as needed Orally Three times a day for 7 days Aug, Active benzoyl peroxide 0.05 mg/mg / clindamycin phosphate 0.012 mg/mg topical gel (2 sources) Lincosamide Antibacterial Start: 10-25-2023 End: 05-25-2024 clindamycin-benzoy l peroxide (Duac) 1.2-5% gel apply to face every morning 10/25/2023 05/25/2024 Discontinued (Therapy completed) biotin 1 mg oral capsule (18 sources) biotin 1 MG capsule Take by mouth Active brexpiprazole 0.5 mg oral tablet (4 sources) Atypical Antipsychotic Start: 04-12-2024 take 1 tablet by mouth in the morning brexpiprazole (REXULTI) 0.5 mg tablet Take 1 tablet (0.5 mg total) by mouth in the morning. 14 tablet 04/12/2024 Active Start: 04-12-2024 End: 05-25-2024 take 1 tablet by mouth in the morning brexpiprazole (REXULTI) 1 mg tablet Take 1 tablet (1 mg total) by mouth in the morning. 14 tablet 04/12/2024 Active brompheniramine maleate 0.4 mg/ml / dextromethorphan hydrobromide 2 mg/ml / pseudoephedrine hydrochloride 6 mg/ml oral solution (2 sources) alpha-Adrenergic Agonist, Uncompetitive D-fgfmka-I-aspartate Receptor Antagonist, Sigma-1 Agonist Start: 08-31-2021 take 10 mL by mouth every six hours Zwqrjxotf-Lcdamtqk-HZ 30-2-10 MG/5ML 10 mL Orally every 6 hours for 5 days Aug, Active Budesonide / formoterol (2 sources) Corticosteroid, beta2-Adrenergic Agonist budesonide-formotero l (SYMBICORT) 160-4.5 mcg/actuation inhaler Inhale 2 puffs as needed. Active budesonide-formo terol (SYMBICORT) 160-4.5 mcg/actuation inhaler Inhale 2 puffs as needed. 0 Active calcium citrate/vitamin D3 (CALCIUM CITRATE + D ORAL) (2 sources) take 1500 ug by mouth three times daily calcium citrate/vitamin D3 (CALCIUM CITRATE + D ORAL) Take 1,500 mcg by mouth 3 (three) times a day. Active take 1500 ug by mout h three times daily calcium citrate/vitamin D3 (CALCIUM CITR ATE + D ORAL) Take 1,500 mcg by mouth 3 (three) times a day. 0 Active cetirizine hydrochloride 10 mg oral tablet (2 sources) Histamine-1 Receptor Antagonist End: 05-25-2024 take 1 tablet by mouth in the morning cetirizine (ZyrTEC) 10 MG tablet Take 10 mg by mouth in the morning. 05/25/2024 Discontinued (Therapy completed) Diclofenac (11 sources) Nonsteroidal Anti-inflammatory Drug Diclofenac Activ e gabapentin 300 mg oral capsule (15 sources) Anti-epileptic Agent Start: 05-26-2023 End: 05-25-2024 take 1 capsule by mouth once daily in the evening gabapentin (NEURONTIN) 300 mg capsule Indications: Fibromyalgia take 1 capsule by mouth once daily AT 8 PM 30 capsule 11 05/26/2023 Active Handicap placards as directed (8 sources) Start: 07-14-2022 Handicap placards as directed use as directed to 07/13/2027 as directed as directed Jun, Active hydrOXYzine hydrochloride 25 mg oral tablet (3 sources) Antihistamine Start: 04-12-2024 End: 05-25-2024 take 1 tablet by mouth once daily as needed for sleep hydrOXYzine (ATARAX) 25 mg tablet Take 1 tablet (25 mg total) by mouth nightly as needed (sleep). 30 tablet 04/12/2024 Active levothyroxine sodium 0.05 mg oral tablet (20 sources) l-Thyroxine Start: 09-13-2023 End: 08-24-2024 take 1 tablet by mouth before mealtime levothyroxine (Synthroid, Levoxyl) 50 MCG tablet Indications: Hypothyroidism, unspecified type (CMS/HCC) Take 1 tablet (50 mcg) by mouth in the morning. Take before meals. 30 tablet 5 07/25/2024 Active lisinopril 2.5 mg oral tablet (20 sources) Angiotensin Converting Enzyme Inhibitor Start: 09-13-2023 End: 08-24-2024 take 1 tablet by mouth once daily lisinopril 2.5 MG tablet Indications: Primary hypertension (CMS/HCC) Take 1 tablet (2.5 mg) by mouth Daily 30 tablet 5 02/23/2024 Active Start: 03-26-2022 take 1 tablet by alexandria th every twenty-four hours Lisinopril 2.5 MG 1 tablet Orally Once a day for 30 day(s) Feb, Active meloxicam 15 mg oral tablet (20 sources) Nonsteroidal Anti-inflammatory Drug Start: 07-24-2024 take 1 tablet by mouth once daily at mealtime meloxicam (MOBIC) 15 mg tablet Indications: Fibromyalgia take 1 tablet by mouth once daily with food 90 tablet 3 07/24/2024 Active Start: 03-26-2022 End: 07-24-2024 take 1 tablet by mouth once daily at mealtime meloxicam (MOBIC) 15 mg tablet Indications: Fibromyalgia take 1 tablet by mouth once daily with food 38 tablet 06/19/2024 07/24/2024 Discontinued (Reorder) 24 hr metFORMIN hydrochloride 500 mg extended release oral tablet (12 sources) Biguanide Start: 02-03-2022 minocycline 100 mg oral capsule (2 sources) Tetracycline-class Drug Start: 12-23-2023 End: 05-25-2024 take 1 capsule by mouth once daily at bedtime minocycline 100 MG capsule take 1 capsule by mouth once daily at bedtime 12/23/2023 05/25/2024 Discontinued (Therapy completed) mometasone furoate 0.05 mg/actuat metered dose nasal spray (17 sources) Corticosteroid Start: 04-18-2021 take 2 spray(s) nasal route once daily Multi Vitamin/Minerals (17 sources) Multi Vitamin/Mi nerals Orally Active naproxen sodium 220 mg oral tablet (13 sources) Nonsteroidal Anti-inflammatory Drug End: 07-25-2024 take 1 tablet by mouth in the morning naproxen sodium (Aleve) 220 MG tablet Take 220 mg by mouth in the morning and 220 mg in the evening. Take with meals. 07/25/2024 Discontinued (Therapy completed) omeprazole 20 mg delayed release oral capsule (20 sources) Proton Pump Inhibitor Start: 07-02-2020 End: 09-17-2024 take 1 capsule by mouth before mealtime omeprazole (PriLOSEC) [address] capsule Indications: Gastroesophageal reflux disease without esophagitis Take 1 capsule (20 mg) by mouth in the morning. Take before meals. 30 capsule 2 08/18/2024 09/17/2024 Active ondansetron 4 mg oral tablet (18 sources) Serotonin-3 Receptor Antagonist Start: 02-03-2024 ondansetron (Zofran) 4 MG tablet Indications: Migraine without aura and without status migrainosus, not intractable (CMS/HCC) 1 every 8 hours for migraine associated nausea and vomiting 20 tablet 02/03/2024 Active One Touch Glucometer (17 sources) One Touch Glucom eter SQ use 3 times daily for 30 days Active OZEMPIC 1 mg/dose (4 mg/3 mL) pen injector (2 sources) inject 1 mL by subcu taneous injection every week OZEMPIC 1 mg/dose (4 mg/3 mL) pen injector inject 1 milliliter subcutaneously ONCE A WEEK Active inject 1 mL by subcu taneous injection every week OZEMPIC 1 mg/dose (4 mg/3 mL) pen inject or inject 1 milliliter subcutaneously ONCE A WEEK 0 Active pantoprazole 20 mg delayed release oral tablet (17 sources) Proton Pump Inhibitor Start: 02-04-2021 take 1 tablet by mouth every twenty-four hours prednisoLONE acetate 10 mg/ml ophthalmic suspension (17 sources) Corticosteroid Start: 08-18-2021 take 1 drop(s) into the eye(s) three times daily rimegepant 75 mg disintegrating oral tablet (20 sources) Start: 09-12-2024 Rimegepant Sulfate (Nurtec) 75 MG tablet dispersible Indications: Migraine Take one tab every other day, may take on off day for migraine abortive, not more than one in 24 hours or 18 a month. 18 tablet 5 09/12/2024 Active Start: 08-10-2024 End: 08-10-2024 take 1 tablet by mouth once daily as needed Rimegepant Sulfate (Nurtec) 75 MG tablet dispersible Indications: Migraine without aura and without status migrainosus, not intractable (CMS/HCC) Take 75 mg by mouth Daily as needed (migraine VALERO) 16 tablet 3 08/10/2024 Active Start: 06-20-2024 Rimegepant Sul fate (Nurtec) 75 MG tablet dispersible Indications: Migraine without aura and without status migrainosus, not intractable (CMS/HCC) Take one every other day for migraine prevention, take one for migraine abortive, not more than 18 days/months, not more than one in 24 hours 18 tablet 2 06/20/2024 Active Start: 06-20-2024 Rimegepant Sul fate (Nurtec) 75 MG tablet dispersible Indications: Migraine without aura and without status migrainosus, not intractable (CMS/HCC) Take one every other day for migraine prevention, take one for migraine abortive, not more than 18 days/months, not more than one in 24 hours 18 tablet 2 06/20/2024 Active Start: 05-02-2024 End: 09-12-2024 Rimegepant Sulfate (Nurtec) 75 MG tablet dispersible Indications: Migraine without aura and without status migrainosus, not intractable (CMS/HCC) Take one every other day for migraine prevention, take one for migraine abortive, not more than 18 days/months, not more than one in 24 hours 18 tablet 2 06/20/2024 07/25/2024 Discontinued (Therapy completed) semaglutide (Ozempic, 1 MG/DOSE,) 4 MG/3ML solution pen-injector (20 sources) Start: 07-10-2024 inject 1 mg by subcutaneous injection every week semaglutide (Ozempic, 1 MG/DOSE,) 4 MG/3ML solution pen-injector Indications: Type 2 diabetes mellitus without complication, without long-term current use of insulin (CMS/HCC) Inject 1 mg under the skin 1 (one) time per week for 28 days 3 mL 5 07/10/2024 Active Start: 07-10-2024 End: 08-07-2024 inject 1 mg by subcutaneous injection every week semaglutide (Ozempic, 1 MG/DOSE,) 4 MG/3ML solution pen-injector Indications: Type 2 diabetes mellitus without complication, without long-term current use of insulin (CMS/HCC) Inject 1 mg under the skin 1 (one) time per week for 28 days 3 mL 5 07/10/2024 08/07/2024 Active Start: 06-29-2024 End: 07-10-2024 semaglutide (Ozempic, 1 MG/D OSE,) 4 MG/3ML solution pen-injector Indications: Type 2 diabetes mellitus without complication, without long-term current use of insulin (CMS/HCC) Inject 1 mg under the skin every 7 (seven) days for 28 days 3 mL 5 06/29/2024 07/10/2024 Discontinued (Therapy completed) Start: 06-29-2024 End: 07-27-2024 semaglutide (Ozempic, 1 MG/D OSE,) 4 MG/3ML solution pen-injector Indications: Type 2 diabetes mellitus without complication, without long-term current use of insulin (CMS/HCC) Inject 1 mg under the skin every 7 (seven) days for 28 days 3 mL 5 06/29/2024 07/27/2024 Active Start: 06-28-2024 End: 06-29-2024 semaglutide (Ozempic, 1 MG/D OSE,) 4 MG/3ML solution pen-injector Indications: Type 2 diabetes mellitus without complication, without long-term current use of insulin (CMS/HCC) Inject 1 mg under the skin every 7 (seven) days for 28 days 3 mL 5 06/28/2024 06/29/2024 Discontinued (Reorder) Start: 06-28-2024 End: 07-26-2024 semaglutide (Ozempic, 1 MG/D OSE,) 4 MG/3ML solution pen-injector Indications: Type 2 diabetes mellitus without complication, without long-term current use of insulin (CMS/HCC) Inject 1 mg under the skin every 7 (seven) days for 28 days 3 mL 5 06/28/2024 07/26/2024 Active Start: 02-23-2024 End: 06-28-2024 inject 1 mg by subcutaneous injection every week semaglutide (Ozempic, 1 MG/DOSE,) 4 MG/3ML solution pen-injector Indications: Type 2 diabetes mellitus without complication, without long-term current use of insulin (CMS/HCC) Inject 1 mg under the skin 1 (one) time per week 1 each 5 02/23/2024 06/28/2024 Discontinued (Reorder) Start: 02-23-2024 inject 1 mg by subcu taneous injection every week semaglutide (Ozempic, 1 MG/DOSE,) 4 MG/3ML solution pen-injector Indications: Type 2 diabetes mellitus without complication, without long-term current use of insulin (CMS/HCC) Inject 1 mg under the skin 1 (one) time per week 1 each 02/23/2024 Active sertraline 100 mg oral tablet (20 sources) Serotonin Reuptake Inhibitor Start: 10-05-2023 take 2 tablets by mouth in the morning sertraline (ZOLOFT) 100 mg tablet Indications: Major depressive disorder, recurrent episode, moderate (CMS-HCC) , Generalized anxiety disorder Take 2 tablets (200 mg total) by mouth in the morning. 180 tablet 3 05/31/2024 Active End: 07-25-2024 take 1 tablet by mouth in the morning sertraline (Zoloft) 100 MG tablet Take 100 mg by mouth in the morning. 07/25/2024 Discontinued (Therapy completed) tiZANidine 4 mg oral tablet (20 sources) Central alpha-2 Adrenergic Agonist Start: 07-24-2024 take 1 tablet by mouth once daily at bedtime tiZANidine (ZANAFLEX) 4 mg tablet Indications: Fibromyalgia Take 1 tablet (4 mg total) by mouth once daily at bedtime. 90 tablet 3 07/24/2024 Active Start: 02-14-2024 End: 09-12-2024 tiZANidine (Zanaflex) 4 MG t ablet Indications: Cervical radiculopathy 2 tablets at bedtime 60 tablet 5 09/12/2024 Active Start: 05-26-2023 End: 07-24-2024 take 1 tablet by mouth once daily at bedtime tiZANidine (ZANAFLEX) 4 mg tablet Indications: Fibromyalgia Take 1 tablet (4 mg total) by mouth once daily at bedtime. 30 tablet 11 05/26/2023 07/24/2024 Discontinued (Reorder) Start: 09-29-2021 take 1 tablet by alexandria every eight hours Zanaflex Active triamcinolone acetonide 5 mg /ml topical cream (20 sources) Corticosteroid Start: 08-18-2021 Start: 08-20-2020 KENALOG - 10 m g Jul, 40 mg Start: 08-10-2020 KENALOG - 10 m g Jul, 40 mg End: 05-25-2024 take 2 spray(s) nasal route in the morning triamcinolone (Nasacort) 55 MCG/ACT nasal inhaler Administer 2 sprays into each nostril in the morning. 05/25/2024 Discontinued (Therapy completed) Completed/Discontinued Medications Medication Drug Class(es) Dates Sig [...] with dinner for 6 days Aug, Active rOPINIRole 1 mg oral tablet (20 sources) Nonergot Dopamine Agonist Start: 02-03-2024 End: 09-12-2024 rOPINIRole (Requip) 1 MG tablet Indications: RLS (restless legs syndrome) 1 tab 2-3 hours before bedtime 30 tablet 5 02/03/2024 09/12/2024 Discontinued (Ineffective) Start: 10-12-2023 take 1 tablet by alexandria th at bedtime rOPINIRole (REQUIP) 0.25 mg tablet take 1 tablet by mouth 1 to 3 hours BEFORE BEDTIME 10/12/2023 Active Problems Active Problems Problem Classification Problem Date Documented Date Episodic/Chronic Allergic reactions (17 sources) Atopic dermatitis; Translations: [Atopic dermatitis, unspecified] Chronic Anxiety disorders (14 sources) Generalized anxiety disorder; Translations: [Generalized anxiety disorder] Onset: 06-04-2017 Chronic Asthma (19 sources) Exacerbation of asthma; Translations: [Unspecified asthma with (acute) exacerbation] Onset: 01-11-2018 01-11-2018 Chronic Attention-deficit, conduct, and disruptive behavior disorders (2 sources) Attention deficit hyperactivity disorder, combined type; Translations: [Attention-deficit hyperactivity disorder, combined type] Onset: 06-04-2017 06-04-2017 Chronic Attention-deficit, conduct, and disruptive behavior disorders (1 source) Attention-deficit hyperactivity disorder, combined type; Translations: [Attention-deficit hyperactivity disorder, combined type] Onset: 06-04-2017 Chronic Chronic obstructive pulmonary disease and bronchiectasis (2 sources) Bronchitis, not specified as acute or chronic Onset: 08-31-2021 Resolved: 08-31-2021 Episodic Diabetes mellitus without complication (20 sources) Type 2 diabetes mellitus without complication; Translations: [Type 2 diabetes mellitus without complications] Onset: 09-10-2023 06-28-2024 Chronic Disorders of lipid metabolism (18 sources) Hyperlipidemia; Translations: [Hyperlipidemia, unspecified] Onset: 09-10-2023 09-10-2023 Chronic Esophageal disorders (20 sources) Gastroesophageal reflux disease; Translations: [Gastro-esophageal reflux disease without esophagitis] Onset: 08-23-2017 Resolved: 02-03-2022 Chronic Essential hypertension (20 sources) Essential hypertension; Translations: [Essential (primary) hypertension] Onset: 03-31-2022 Chronic Headache; including migraine (20 sources) Migraine aura without headache ; Translations: [Migraine with aura, not intractable, without status migrainosus] Onset: 07-13-2008 Resolved: 05-25-2024 09-10-2023 Chronic Malaise and fatigue (20 sources) Fatigue; Translations: [Chronic fatigue, unspecified] Onset: 09-10-2023 09-10-2023 Chronic Menstrual disorders (18 sources) Amenorrhea; Translations: [Amenorrhea, unspecified] Onset: 05-25-2024 05-25-2024 Chronic Miscellaneous mental health disorders (18 sources) Primary insomnia; Translations: [Primary insomnia] Onset: 02-02-2024 02-02-2024 Chronic Mood disorders (20 sources) Recurrent major depressive episodes, moderate ; Translations: [Major depressive disorder, recurrent, moderate] Onset: 06-04-2017 06-04-2017 Chronic Nutritional deficiencies (17 sources) Vitamin D deficiency; Translations: [Vitamin D deficiency, unspecified] Chronic Other congenital anomalies (18 sources) Jen-Danlos syndrome; 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, unspecified] Onset: 09-10-2023 09-10-2023 Chronic Other connective tissue disease (2 sources) Fibromyalgia; Translations: [Fibromyalgia] Onset: 07-24-2024 Episodic Other endocrine disorders (17 sources) Polycystic ovaries; Translations: [Polycystic ovarian syndrome] Chronic Other endocrine disorders (17 sources) Hypoglycemia; Translations: [Hypoglycemia, unspecified] Chronic Other endocrine disorders (7 sources) Polycystic ovarian syndrome; Translations: [POLYCYSTIC OVARIAN SYNDROME] Onset: 02-03-2022 Resolved: 02-03-2022 Chronic Other endocrine disorders (5 sources) Hypoglycemia, unspecified; Translations: [HYPOGLYCEMIA UNSPECIFIED] Onset: 11-17-2022 Chronic Other endocrine disorders (20 sources) Polycystic ovary syndrome; Translations: [Polycystic ovarian syndrome] Onset: 04-14-2016 01-11-2018 Chronic Other hereditary and degenerative nervous system conditions (20 sources) Restless legs; Translations: [Restless legs syndrome] Onset: 02-02-2024 02-02-2024 Chronic Other nervous system disorders (18 sources) Carpal tunnel syndrome; Translations: [Carpal tunnel syndrome, unspecified upper limb] Onset: 06-11-2015 02-02-2024 Chronic Other nervous system disorders (4 sources) Disturbance in speech; Translations: [Unspecified speech disturbances] 09-12-2024 Episodic Other nutritional; endocrine; and metabolic disorders (1 source) Obesity, unspecified; Translations: [OBESITY UNSPECIFIED] Onset: 01-28-2023 Chronic Other nutritional; endocrine; and metabolic disorders (20 sources) Body mass index 30+ - obesity; Translations: [Obesity, unspecified] Onset: 10-26-2023 Resolved: 02-07-2024 02-07-2024 Chronic Other skin disorders (17 sources) Hirsutism; Translations: [Hirsutism] Episodic Other skin disorders (1 source) Other nail disorders Episodic Other upper respiratory infections (1 source) Acute pharyngitis, unspecified Episodic Otitis media and related conditions (1 source) Unspecified nonsuppurative otitis media, right ear Episodic Residual codes; unclassified (20 sources) Obstructive sleep apnea syndrome; Translations: [Obstructive sleep apnea (adult) (pediatric)] Onset: 08-23-2017 Resolved: 10-20-2018 10-20-2018 Chronic Residual codes; unclassified (6 sources) Transient alteration of awareness; Translations: [Transient alteration of awareness] 09-14-2024 Episodic Spondylosis; intervertebral disc disorders; other back problems (20 sources) Sacrococcygeal disorders, not elsewhere classified; Translations: [Cervical radiculopathy] Onset: 11-19-2016 Resolved: 05-25-2024 Episodic Thyroid disorders (20 sources) Hypothyroidism, unspecified; Translations: [Hypothyroidism] Onset: 01-11-2018 01-11-2018 Chronic Past or Other Problems Problem Classification Problem Date Documented Da te Episodic/Chronic Conditions associated with dizziness or vertigo (18 sources) Dizziness and giddiness; Translations: [Dizziness and giddiness] Onset: 05-25-2024 05-25-2024 Episodic Diabetes mellitus with complications (2 sources) Type 2 diabetes mellitus in obese; Translations: [Type 2 diabetes mellitus with other specified complication] Onset: 08-23-2017 Resolved: 02-01-2018 02-01-2018 Chronic Diabetes or abnormal glucose tolerance complicating ; childbirth; or the puerperium (2 sources) History of gestational diabetes mellitus; Translations: [Personal history of gestational diabetes] Onset: 04-14-2016 01-11-2018 Episodic Immunizations and screening for infectious disease (1 source) Contact with and (suspected) exposure to other viral communicable diseases Onset: 08-31-2021 Resolved: 08-31-2021 Episodic Malaise and fatigue (3 sources) Other fatigue; Translations: [Fatigue] Onset: 08-23-2017 08-23-2017 Episodic Nausea and vomiting (18 sources) Nausea and vomiting; Translations: [Nausea with vomiting, unspecified] Onset: 02-21-2015 02-02-2024 Episodic Other connective tissue disease (20 sources) Fibromyalgia; Translations: [Fibromyalgia] Onset: 09-10-2023 09-10-2023 Episodic Other connective tissue disease (18 sources) Pain in limb; Translations: [Pain in unspecified limb] Onset: 05-07-2015 02-02-2024 Episodic Other connective tissue disease (18 sources) Spasm; Translations: [Other muscle spasm] Onset: 11-19-2016 02-02-2024 Episodic Other nervous system disorders (18 sources) Skin sensation disturbance; Translations: [Unspecified disturbances of skin sensation] Onset: 05-07-2015 02-02-2024 Episodic Other non-traumatic joint disorders (1 source) Pain in right hip Onset: 04-02-2022 Resolved: 04-02-2022 Episodic Other nutritional; endocrine; and metabolic disorders (19 sources) Obese class II; Translations: [Body mass index (BMI) 35.0-35.9, adult] Onset: 08-23-2017 Resolved: 10-20-2018 10-20-2018 Chronic Other nutritional; endocrine; and metabolic disorders (20 sources) Obesity; Translations: [Obesity, unspecified] Onset: 09-13-2023 Resolved: 02-07-2024 02-07-2024 Chronic Other nutritional; endocrine; and metabolic disorders (2 sources) Morbid obesity; Translations: [Morbid (severe) obesity due to excess calories] Onset: 01-24-2018 Resolved: 10-20-2018 10-20-2018 Chronic Other screening for suspected conditions (not mental disorders or infectious disease) (20 sources) Patient encounter status; Translations: [Encounter for screening mammogram for malignant neoplasm of breast] Onset: 08-19-2009 Resolved: 05-25-2024 05-25-2024 Episodic Residual codes; unclassified (20 sources) Hypersomnia; Translations: [Hypersomnia, unspecified] Onset: 11-17-2014 Resolved: 07-25-2024 02-02-2024 Chronic Residual codes; unclassified (20 sources) Insomnia; Translations: [Insomnia, unspecified] Onset: 02-02-2024 Resolved: 07-25-2024 02-02-2024 Episodic Residual codes; unclassified (18 sources) Disturbance in sleep behavior; Translations: [Sleep disorder, unspecified] Onset: 03-19-2014 Resolved: 05-25-2024 05-25-2024 Episodic Sprains and strains (18 sources) Strain of right trapezius muscle; Translations: [Strain of other muscles, fascia and tendons at shoulder and upper arm level, right arm, initial encounter] Onset: 01-11-2024 Resolved: 05-25-2024 05-25-2024 Episodic Varicose veins of lower extremity (18 sources) Varicose veins of lower limb co-occurrent with edema; Translations: [Varicose veins of bilateral lower extremities with other complications] Onset: 09-13-2023 09-13-2023 Episodic Viral infection (18 sources) Herpes zoster without complication; Translations: [Zoster without complications] Onset: 02-07-2024 02-07-2024 Episodic Results Test Name Value Interpretation Reference Range Facility [facility] HEMOGLOBIN A1Con 024 Glucose [Mass/Vol] 111 mg/dL [facility] HbA1c (Bld) [Mass fraction] 5.5 % 4.5 - 6.2 % [facility] Comment on above: ADA RECOMMENDED LIMI T 4.0 - 6.0 ADA THERAPEUTIC TARGET < 7.0 ACTION SUGGESTED > 7.0 [facility] Healthcar e IGP,APTIMA HPV,AGE GDLNon AGE GDLN ACOG TESTING Note . [facility] Comment on above: TESTS RESULT FLAG UN ITS REF RANGE LAB Clinician Provided Cytology Information Source.............Cervix;Endocervix No. of containers..01 ThinPrep Vial Age Algo ACOG Prudence... 30-65 01 FLAG LEGEND: L-Low Normal,H-High Normal,LL-Alert Low,HH-Alert High <-Panic Low,>-Panic High,A-Abnormal,AA-Critical Abnormal Performed at: 01 =[address] [id number] Maren Peña MD, HPV APTIMA Negative Negative [facility] Comment on above: This nucleic acid am plification test detects fourteen high- risk HPV types (16,18,31,33,35,39,45,51,52,56,58,59,66,68) without differentiation. Performed at: =[address] [id number] [facility]idential [facility] Facility Manager: Maren Peña MD, Phone: [phone] Performed at: [address] [id number] Residential Care Facility Manager: Maren Peña MD, Phone: [phone] IGP, APTIMA HPV, RFX 16/18,45 Note . [facility] Comment on above: TESTS RESULT FLAG UN ITS REF RANGE LAB DIAGNOSIS: 02 NEGATIVE FOR INTRAEPITHELIAL LESION OR MALIGNANCY. Specimen adequacy: 02 Satisfactory for evaluation. Endocervical and/or squamous metaplastic cells (endocervical component) are present. Performed by: 02 Katie Hernandez, Box Icer (ASCP) . 02 Note: Note 02 The Pap smear is a screening test designed to aid in the detection of premalignant and malignant conditions of the uterine cervix. It is not a diagnostic procedure and should not be used as the sole means of detecting cervical cancer. Both false-positive and false-negative reports do occur. Test Methodology: Note 02 This liquid based ThinPrep(R) pap test was screened with the use of an image guided system. HPV Genotype Reflex Note 02 Criteria not met, HPV Genotype not performed. FLAG LEGEND: L-Low Normal,H-High Normal,LL-Alert Low,HH-Alert High <-Panic Low,>-Panic High,A-Abnormal,AA-Critical Abnormal Performed at: [address] [id number] Maren Peña MD, CERVIX ENDOCERVIX [facility] e ALL THYROID STIM HORMONEon 0 05-26-2024 TSH Qn 3.022 m[IU]/L [facility] No Panel Informationon 05-26 [facility] Health[facility] TBH PREG QUANT HCGon 05-26- 024 HCG QUANTITATIVE <1 mIU/mL [facility] Comment on above: 5-50 0.2-1 WEEK 50-500 1-2 WEEKS 100-5,000 2-3 WEEKS 500-10,000 3-4 WEEKS 1,000-50,000 4-5 WEEKS 10,000-100,000 5-6 WEEKS 15,000-200,000 6-8 WEEKS 10,000-100,000 2-3 MONTHS Quick Strepon 05-03-2023 S. pyogenes Org specific cx Ql (Throat) Negative [facility] Other Quick Strep [facility] Other INSULINon 01-26-2023 Insulin 21.3 uIU/mL Normal 2.6-24.9 [facility] Comment on above: Performed By: #### I NSULIN #### [facility] [address] [place] [address] Dr. Yvan Manzano CORTISOLon 01-23-2023 Cortisol 11.2 ug/dL Normal 6.2-19.4 [facility] Comment on above: Result Comment: [place] Note: The reference interval and flagging for this test is for an AM collection. If this is a PM collection please use: Cortisol PM: 2.3-11.9 [facility] also offers: [id number]: Cortisol- AM 139556: Cortisol- PM Performed By: #### C BC #### [facility] [address] [place] [address] Dr. Yvan Manzano CBC AUTO DIFFon 01-22-2023 BASO # 0.1 103/ul Normal 0.0-0.1 [facility] Comment on above: Performed By: #### C BC #### [facility] [address] [place] [address] Dr. Yvan Manzano Basophils/100 WBC (Bld) 0.9 % Normal 0.2-2.0 [facility] Comment on above: Performed By: #### C BC #### [facility] [address] [place] [address] Dr. Yvan Manzano EO # 0.3 103/ul Normal 0.0-0.7 [facility] Comment on above: Performed By: #### C BC #### [facility] [address] [place] [address] Dr. Yvan Manzano Eosinophils/100 WBC (Bld) 5.7 % Normal 0.9-7.0 [facility] Comment on above: Performed By: #### C BC #### [facility] [address] [place] [address] Dr. Yvan Manzano Erythrocyte distribution width (RBC) [Ratio] 14.6 % Normal 11.0-15.0 [facility] Comment on above: Performed By: #### C BC #### [facility] [address] [place] [address] Dr. Yvan Manzano Hematocrit (Bld) [Volume fraction] 36.8 % Normal 36.0-48.0 [facility] Comment on above: Performed By: #### C BC #### [facility] [address] [place] [address] Dr. Yvan Manzano Hemoglobin (Bld) [Mass/Vol] 11.4 g/dL Critically low 12.0-16.0 [facility] Comment on above: Performed By: #### C BC #### [facility] [address] [place] [address] Dr. Yvan Manzano IG # 0.02 10e3/ul Normal 0.00-0.03 [facility] Comment on above: Performed By: #### C BC #### [facility] [address] [place] [address] Dr. Yvan Manzano IG % 0.3 % Normal 0.0-0.5 [facility] Comment on above: Performed By: #### C BC #### [facility] [address] [place] [address] Dr. Yvan Manzano LYMPH # 1.5 103/ul Normal 1.2-3.8 [facility] Comment on above: Performed By: #### C BC #### [facility] [address] [place] [address] Dr. Yvan Manzano Lymphocytes/100 WBC (Bld) 25.3 % Normal 20.5-60.0 [facility] Comment on above: Performed By: #### C BC #### [facility] [address] [place] [address] Dr. Yvan Manzano MANUAL DIFF REQ NO Normal [facility] Comment on above: Performed By: #### C BC #### [facility] [address] [place] [address] Dr. Yvan Manzano MCH (RBC) [Entitic mass] 25.2 pg Critically low 26.7-34.0 [facility] Comment on above: Performed By: #### C BC #### [facility] [address] [place] [address] Dr. Yvan Manzano MCHC (RBC) [Mass/Vol] 31.0 g/dL Normal 29.9-35.2 [facility] Comment on above: Performed By: #### C BC #### [facility] [address] [place] [address] Dr. Yvan Manzano MCV (RBC) [Entitic vol] 81.4 fL Normal 81.0-99.0 [facility] Comment on above: Performed By: #### C BC #### [facility] [address] [place] [address] Dr. Yvan Manzano MONO # 0.4 103/ul Normal 0.3-0.8 [facility] Comment on above: Performed By: #### C BC #### [facility] [address] [place] [address] Dr. Yvan Manzano Monocytes/100 WBC (Bld) 7.7 % Normal 1.7-12.0 [facility] Comment on above: Performed By: #### C BC #### [facility] [address] [place] [address] Dr. Yvan Manzano NEUT # 3.5 103/ul Normal 1.4-6.5 [facility] Comment on above: Performed By: #### C BC #### [facility] [address] [place] [address] Dr. Yvan Manzano Neutrophils/100 WBC (Bld) 60.1 % Normal 43.0-75.0 [facility] Comment on above: Performed By: #### C BC #### [facility] [address] [place] [address] Dr. Yvan Manzano Platelet mean volume (Bld) [Entitic vol] 8.8 fL Critically low 9.5-13.5 [facility] Comment on above: Performed By: #### C BC #### [facility] [address] [place] [address] Dr. Yvan Manzano PLT 347 103/ul Normal 150-450 [facility] Comment on above: Performed By: #### C BC #### [facility] [address] [place] [address] Dr. Yvan Manzano RBC 4.52 106/ul Normal 4.20-5.40 [facility] Comment on above: Performed By: #### C BC #### [facility] [address] [place] [address] Dr. Yvan Manzano WBC 5.7 103/ul Normal 4.0-11.0 [facility] Comment on above: Performed By: #### C BC #### [facility] [address] [address] [address] Yvan Manzano FREE T4on 01-22-2023 Free T4 [Mass/Vol] 0.84 ng/dL Normal 0.76-1.46 [facility] Comment on above: Performed By: #### F T4 #### [facility] [address] [place] [address] Dr. Yvan Manzano LIPID PROFILEon 01-22-2023 CHOL-HDL RATIO NORM SEE BELOW Normal [facility] Comment on above: Result Comment: 3.3 - 4.4 LOW RISK 4.4 - 7.1 AVERAGE RISK 7.1 - 11.0 MODERATE RISK >11.0 HIGH RISK Performed By: #### T SH, LIPID #### [facility] [address] [place] [address] Dr. Yvan Manzano Cholesterol [Mass/Vol] 264 mg/dL Critically high <=200 [facility] Comment on above: Performed By: #### T SH, LIPID #### [facility] [address] [place] [address] Dr. Yvan Manzano Cholesterol in HDL [Mass/Vol] 52 mg/dL Normal 40-60 [facility] Comment on above: Performed By: #### T SH, LIPID #### [facility] [address] [place] [address] Dr. Yvan Manzano Cholesterol in LDL [Mass/Vol] 173.6 mg/dL Normal [facility] Comment on above: Performed By: #### T SH, LIPID #### [facility] [address] [place] [address] Dr. Yvan Manzano Cholesterol.total/Ch olesterol in HDL [Mass ratio] 5.1 {ratio} Normal [facility] Comment on above: Performed By: #### T SH, LIPID #### [facility] [address] [place] [address] Dr. Yvan Manzano HDL NORMAL > or = 60 mg/dl - LOW CARDIOVASCULAR RISK <40 mg/dl - HIGH CARDIOVASCULAR RISK Normal [facility] Comment on above: Performed By: #### T SH, LIPID #### [facility] [address] [place] [address] Dr. Yvan Manzano LDL CALC NORMAL SEE BELOW Normal [facility] Comment on above: Result Comment: <100 mg/dl OPTIMAL 100 - 129 mg/dl NEAR OR ABOVE OPTIMAL 130 - 159 mg/dl BORDERLINE HIGH 160 - 189 mg/dl HIGH >190 mg/dl VERY HIGH Performed By: #### T SH, LIPID #### [facility] [address] [address] [address] Yvan Manzano Triglyceride [Mass/Vol] 192 mg/dL Critically high <=150 [facility] Comment on above: Performed By: #### T SH, LIPID #### [facility] [address] [place] [address] Dr. Yvan Manzano VLDL CALC 38.4 mg/dL Normal [facility] Comment on above: Performed By: #### T SH, LIPID #### [facility] [address] [place] [address] Dr. Yvan Manzano TSHon 01-22-2023 TSH 5.749 uIU/mL Critically high 0.358-3.740 [facility] Comment on above: Performed By: #### T SH, LIPID #### [facility] [address] [place] [address] Dr. Yvan Manzano GLYCOHEMOGLOBIN A1Con 2022 ADA RECOMMENDATION SEE BELOW Normal [facility] Comment on above: Result Comment: ADA RECOMMENDED LIMIT 4.0 - 6.0 ADA THERAPEUTIC TARGET < 7.0 ACTION SUGGESTED > 7.0 Performed By: #### A 1C #### [facility] [address] [place] [address] Dr. Yvan Manzano Glucose [Mass/Vol] 137 mg/dL Normal [facility] Comment on above: Performed By: #### A 1C #### [facility] [address] [place] [address] Dr. Yvan Manzano HbA1c (Bld) [Mass fraction] 6.4 % Critically high 4.5-6.2 [facility] Comment on above: Performed By: #### A 1C #### [facility] [address] [place] [address] Dr. Yvan Manzano PROF 14(COMP METB)on 023 Albumin [Mass/Vol] 3.4 g/dL Normal 3.4-5.0 [facility] Comment on above: Performed By: #### C MP #### [facility] [address] [place] [address] Dr. Yvan Manzano Albumin/Globulin [Mass ratio] 0.9 {ratio} Normal [facility] Comment on above: Performed By: #### C MP #### [facility] [address] [place] [address] Dr. Yvan Manzano ALP [Catalytic activity/Vol] 74 U/L Normal 46-116 [facility] Comment on above: Performed By: #### C MP #### [facility] [address] [place] [address] Dr. Yvan Manzano ALT [Catalytic activity/Vol] 25 U/L Normal 14-59 [facility] Comment on above: Performed By: #### C MP #### [facility] [address] [place] [address] Dr. Yvan Manzano Anion gap [Moles/Vol] 9.4 mmol/L Normal [facility] Comment on above: Performed By: #### C MP #### [facility] [address] [place] [address] Dr. Yvan Manzano AST [Catalytic activity/Vol] 17 U/L Normal 15-37 [facility] Comment on above: Performed By: #### C MP #### [facility] [address] [place] [address] Dr. Yvan Manzano Bilirubin [Mass/Vol] 0.1 mg/dL Critically low 0.2-1.0 [facility] Comment on above: Performed By: #### C MP #### [facility] [address] [place] [address] Dr. Yvan Manzano Calcium [Mass/Vol] 9.2 mg/dL Normal 8.5-10.1 [facility] Comment on above: Performed By: #### C MP #### [facility] [address] [address] [address] Yvan Manzano Chloride [Moles/Vol] 101 mmol/L Normal 98-107 [facility] Comment on above: Performed By: #### C MP #### [facility] [address] [address] [address] Yvan Manzano CO2 [Moles/Vol] 30.4 mmol/L Normal 21.0-32.0 [facility] Comment on above: Performed By: #### C MP #### [facility] [address] [place] [address] Dr. Yvan Manzano Creatinine [Mass/Vol] 0.71 mg/dL Normal 0.55-1.02 [facility] Comment on above: Performed By: #### C MP #### [facility] [address] [place] [address] Dr. Yvan Manzano EGFR-AF LAO >60 Normal >=60 [facility] Comment on above: Performed By: #### C MP #### [facility] [address] [address] [address] Yvan aMnzano EGFR-NON AF LAO >60 Normal >=60 [facility] Comment on above: Performed By: #### C MP #### [facility] [address] [place] [address] Dr. Yvan Manzano Globulin (S) [Mass/Vol] 4.0 g/dL Normal [facility] Comment on above: Performed By: #### C MP #### [facility] [address] [place] [address] Dr. Yvan Manzano Glucose [Mass/Vol] 138 mg/dL Critically high 74-106 T [facility] Comment on above: Performed By: #### C MP #### [facility] [address] [address] [address] Yvan Manzano Potassium [Moles/Vol] 3.8 mmol/L Normal 3.5-5.1 [facility] Comment on above: Performed By: #### C MP #### [facility] [address] [place] [address] Dr. Yvan Manzano Protein [Mass/Vol] 7.4 g/dL Normal 6.4-8.2 [facility] Comment on above: Performed By: #### C MP #### [facility] [address] [place] [address] Dr. Yvan Manzano Sodium [Moles/Vol] 137 mmol/L Normal 136-145 [facility] Comment on above: Performed By: #### C MP #### [facility] [address] [address] [address] Yvan Manzano Urea nitrogen [Mass/Vol] 13.0 mg/dL Normal 7.0-18.0 [facility] Comment on above: Performed By: #### C MP #### [facility] [address] [place] [address] Dr. Yvan Manzano Urea nitrogen/Creatinine [Mass ratio] 18.3 mg/mg Normal [facility] Comment on above: Performed By: #### C MP #### [facility] [address] [place] [address] Dr. Yvan Manzano LIPID PROFILEon 03-31-2022 CHOL-HDL RATIO NORM SEE BELOW Normal [facility] Comment on above: Result Comment: 3.3 - 4.4 LOW RISK 4.4 - 7.1 AVERAGE RISK 7.1 - 11.0 MODERATE RISK >11.0 HIGH RISK Performed By: #### C MP, LIPID #### [facility] [address] [place] [address] Dr. Yvan Manzano Cholesterol [Mass/Vol] 229 mg/dL Critically high <=200 [facility] Comment on above: Performed By: #### C MP, LIPID #### [facility] [address] [place] [address] Dr. Yvan Manzano Cholesterol in HDL [Mass/Vol] 51 mg/dL Normal 40-60 [facility] Comment on above: Performed By: #### C MP, LIPID #### [facility] [address] [place] [address] Dr. Yvan Manzano Cholesterol in LDL [Mass/Vol] 150.4 mg/dL Normal [facility] Comment on above: Performed By: #### C MP, LIPID #### [facility] [address] [address] [address] Yvan Manzano Cholesterol.total/Ch olesterol in HDL [Mass ratio] 4.5 {ratio} Normal [facility] Comment on above: Performed By: #### C MP, LIPID #### [facility] [address] [address] [address] Yvan Manzano HDL NORMAL > or = 60 mg/dl - LOW CARDIOVASCULAR RISK <40 mg/dl - HIGH CARDIOVASCULAR RISK Normal [facility] Comment on above: Performed By: #### C MP, LIPID #### [facility] [address] [address] [address] Yvan Manzano LDL CALC NORMAL SEE BELOW Normal [facility] Comment on above: Result Comment: <100 mg/dl OPTIMAL 100 - 129 mg/dl NEAR OR ABOVE OPTIMAL 130 - 159 mg/dl BORDERLINE HIGH 160 - 189 mg/dl HIGH >190 mg/dl VERY HIGH Performed By: #### C MP, LIPID #### [facility] [address] [address] [address] Yvan Manzano Triglyceride [Mass/Vol] 138 mg/dL Normal <=150 [facility] Comment on above: Performed By: #### C MP, LIPID #### [facility] [address] [address] [address] Yvan Manzano VLDL CALC 27.6 mg/dL Normal [facility] Comment on above: Performed By: #### C MP, LIPID #### [facility] [address] [address] [address] Yvan Manzano MICROALB CREAT RATIO RANDOMo n 03-31-2022 mALB 1.4 mg/L Normal <=30.0 [facility] Comment on above: Performed By: #### M CRR #### [facility] [address] [address] [address] Yvan Manzano MALB CR RATIO 6.0 mg/g Normal 0.0-29.9 [facility] Comment on above: Performed By: #### M CRR #### [facility] [address] [place] [address] Dr. Yvan Manzano MALB CR RATIO RANGE SEE BELOW Normal [facility] Comment on above: Result Comment: NO M ICROALBUMINURIA 0-29 MG/G CLINICAL MICROALBUMINURIA 30-300 MG/G MACROALBUMINURIA >300 MG/G Performed By: #### M CRR #### [facility] [address] [place] [address] Dr. Yvan Manzano URINE CREAT 232.88 mg/dL Normal 20.00-300.00 [facility] Comment on above: Performed By: #### M CRR #### [facility] [address] [place] [address] Dr. Yvan Manzano PROF 14(COMP METB)on 022 Albumin [Mass/Vol] 3.6 g/dL Normal 3.4-5.0 [facility] Comment on above: Performed By: #### C MP, LIPID #### [facility] [address] [place] [address] Dr. Yvan Manzano Albumin/Globulin [Mass ratio] 0.9 {ratio} Normal [facility] Comment on above: Performed By: #### C MP, LIPID #### [facility] [address] [place] [address] Dr. Yvan Manzano ALP [Catalytic activity/Vol] 63 U/L Normal 46-116 [facility] Comment on above: Performed By: #### C MP, LIPID #### [facility] [address] [place] [address] Dr. Yvan Manzano ALT [Catalytic activity/Vol] 33 U/L Normal 14-59 [facility] Comment on above: Performed By: #### C MP, LIPID #### [facility] [address] [place] [address] Dr. Yvan Manzano Anion gap [Moles/Vol] 11.7 mmol/L Normal [facility] Comment on above: Performed By: #### C MP, LIPID #### [facility] [address] [place] [address] Dr. Yvan Manzano AST [Catalytic activity/Vol] 23 U/L Normal 15-37 [facility] Comment on above: Performed By: #### C MP, LIPID #### [facility] [address] [address] [address] Yvan Manzano Bilirubin [Mass/Vol] 0.2 mg/dL Normal 0.2-1.0 [facility] Comment on above: Performed By: #### C MP, LIPID #### [facility] [address] [place] [address] Dr. Yvan Manzano Calcium [Mass/Vol] 9.5 mg/dL Normal 8.5-10.1 [facility] Comment on above: Performed By: #### C MP, LIPID #### [facility] [address] [place] [address] Dr. Yvan Manzano Chloride [Moles/Vol] 102 mmol/L Normal 98-107 [facility] Comment on above: Performed By: #### C MP, LIPID #### [facility] [address] [place] [address] Dr. Yvan Manzano CO2 [Moles/Vol] 28.0 mmol/L Normal 21.0-32.0 [facility] Comment on above: Performed By: #### C MP, LIPID #### [facility] [address] [place] [address] Dr. Yvan Manzano Creatinine [Mass/Vol] 0.71 mg/dL Normal 0.55-1.02 [facility] Comment on above: Performed By: #### C MP, LIPID #### [facility] [address] [place] [address] Dr. Yvan Manzano EGFR-AF LAO >60 Normal >=60 [facility] Comment on above: Performed By: #### C MP, LIPID #### [facility] [address] [place] [address] Dr. Yvan Manzano EGFR-NON AF LAO >60 Normal >=60 [facility] Comment on above: Performed By: #### C MP, LIPID #### [facility] [address] [place] [address] Dr. Yvan Manzano Globulin (S) [Mass/Vol] 4.0 g/dL Normal [facility] Comment on above: Performed By: #### C MP, LIPID #### [facility] [address] [place] [address] Dr. Yvan Manzano Glucose [Mass/Vol] 87 mg/dL Normal 74-106 [facility] Comment on above: Performed By: #### C MP, LIPID #### [facility] [address] [address] [address] Yvan Manzano Potassium [Moles/Vol] 3.7 mmol/L Normal 3.5-5.1 [facility] Comment on above: Performed By: #### C MP, LIPID #### [facility] [address] [address] [address] Yvan Manzano Protein [Mass/Vol] 7.6 g/dL Normal 6.4-8.2 [facility] Comment on above: Performed By: #### C MP, LIPID #### [facility] [address] [address] [address] Yvan Manzano Sodium [Moles/Vol] 138 mmol/L Normal 136-145 [facility] Comment on above: Performed By: #### C MP, LIPID #### [facility] [address] [address] [address] Yvan Manzano Urea nitrogen [Mass/Vol] 14.0 mg/dL Normal 7.0-18.0 [facility] Comment on above: Performed By: #### C MP, LIPID #### [facility] [address] [address] [address] Yvan Manzano Urea nitrogen/Creatinine [Mass ratio] 19.7 mg/mg Normal [facility] Comment on above: Performed By: #### C MP, LIPID #### [facility] [address] [address] [address] Yvan Manzano XR hip RT min 2V(w/wo pelvis )*on 03-26-2022 XR hip RT min 2V(w/wo pelvis)* [facility] [place] [address] XRay Report Signed Patient: Tatiana Sepulvead MR#: [id number] : 1975 Acct:[id number] Age/Sex: 46 / F ADM Date: 03/26/22 [...] Michael Harper M.D.03/26/2022 3:38 PM Dictation Location: [place] [address] Transcribed By: [facility] 03/26/22 1538 Dictated By: Michael Harper DO 03/26/22 1534 Signed By: 03/26/22 1538 Normal [facility] XR sacrum coccyx min 2Von XR sacrum coccyx min 2V [facility] [place] [address] [place] [address] XRay Report Signed Patient: Tatiana Sepulveda MR#: [id number] : 1975 Acct:[id number] Age/Sex: 45 / F ADM Date: 09/29/21 Loc: XDUCLY Room: Type: [facility] CLI Attending Dr: Mona ALVARADO Ordering [...] M.D.09/29/2021 4:16 PM Dictation Location: [place] [address] Transcribed By: [facility] 09/29/211615 Dictated By: Laron Villegas II, MD 09/29/211612 Signed By: 09/29/211615 [facility] COVID Quick Testingon 2020 Result Negative [place] [employer] Other Vital Signs Date Time Vital Sign Value Performing Clinician Facility 09-12-2024 09:39-0500 Body height 154.9 cm Krunal Penar ROUND CUTTER OPERATOR Work Phone: [facility] 09-12-2024 09:39-0500 Body mass index (BMI) [Ratio] 33.63 kg/m2 Krunal Susiemor ROUND CUTTER OPERATOR Work Phone: [facility] 09-12-2024 09:39-0500 Body weight 80.74 kg Krunal Susiemor ROUND CUTTER OPERATOR Work Phone: [facility] 09-12-2024 09:39-0500 Diastolic blood pressure 81 mm[Hg] Krunal Susiemor ROUND CUTTER OPERATOR Work Phone: [facility] 09-12-2024 09:39-0500 Heart rate 95 /min Krunal Susiemor ROUND CUTTER OPERATOR Work Phone: [facility] 09-12-2024 09:39-0500 Systolic blood pressure 128 mm[Hg] Krunal Susiemor ROUND CUTTER OPERATOR Work Phone: [facility] 07-25-2024 08:49-0400 Body height 154.9 cm Halima Moncada ROUND CUTTER OPERATOR Work Phone: [facility] 07-25-2024 08:49-0400 Body mass index (BMI) [Ratio] 33.67 kg/m2 Halima Moncada ROUND CUTTER OPERATOR Work Phone: [facility] 07-25-2024 08:49-0400 Body temperature 98.4 [degF] Halima Moncada ROUND CUTTER OPERATOR Work Phone: [facility] 07-25-2024 08:49-0400 Body weight 80.83 kg Halima Moncada ROUND CUTTER OPERATOR Work Phone: [facility] 07-25-2024 08:49-0400 Diastolic blood pressure 78 mm[Hg] Halima Brownholz ROUND CUTTER OPERATOR Work Phone: [facility] 07-25-2024 08:49-0400 Heart rate 101 /min Halima Moncada ROUND CUTTER OPERATOR Work Phone: [facility] 07-25-2024 08:49-0400 Respiratory rate 18 /min Halima Moncada ROUND CUTTER OPERATOR Work Phone: [facility] 07-25-2024 08:49-0400 SaO2% (BldA) [Mass fraction] 98 % Halima Moncada ROUND CUTTER OPERATOR Work Phone: [facility] 07-25-2024 08:49-0400 Systolic blood pressure 112 mm[Hg] Halima Moncada ROUND CUTTER OPERATOR Work Phone: [facility] 07-24-2024 10:08-0400 Body height 154.9 cm Mich Verdugo MD Work Phone: [facility] 07-24-2024 10:08-0400 Body mass index (BMI) [Ratio] 33.65 kg/m2 Mich Verdugo MD Work Phone: [facility] 07-24-2024 10:08-0400 Body weight 80.74 kg Mich Verdugo MD Work Phone: [facility] 07-24-2024 10:08-0400 Diastolic blood pressure 84 mm[Hg] Mich Verdugo MD Work Phone: [facility] 07-24-2024 10:08-0400 Respiratory rate 18 /min Mich Verdugo MD Work Phone: [facility] 07-24-2024 10:08-0400 Systolic blood pressure 128 mm[Hg] Mich Verdugo MD Work Phone: [facility] 06-20-2024 09:34-0400 Body height 154.9 cm Krunal Richardsmor ROUND CUTTER OPERATOR Work Phone: [facility] 06-20-2024 09:34-0400 Body mass index (BMI) [Ratio] 33.44 kg/m2 Krunal Susiemor ROUND CUTTER OPERATOR Work Phone: [facility] 06-20-2024 09:34-0400 Body weight 80.29 kg Krunal Susiemor ROUND CUTTER OPERATOR Work Phone: [facility] 06-20-2024 09:34-0400 Diastolic blood pressure 84 mm[Hg] Krunal Susiemor ROUND CUTTER OPERATOR Work Phone: [facility] 06-20-2024 09:34-0400 Heart rate 86 /min Krunal Susiemor ROUND CUTTER OPERATOR Work Phone: [facility] 06-20-2024 09:34-0400 Systolic blood pressure 128 mm[Hg] Krunal Susiemor ROUND CUTTER OPERATOR Work Phone: [facility] 05-25-2024 10:35-0400 Body height 154.9 cm Halima Moncada ROUND CUTTER OPERATOR Work Phone: [facility] 05-25-2024 10:35-0400 Body mass index (BMI) [Ratio] 33.22 kg/m2 Halima Moncada ROUND CUTTER OPERATOR Work Phone: [facility] 05-25-2024 10:35-0400 Body temperature 98.49 [degF] Halima Coral ROUND CUTTER OPERATOR Work Phone: [facility] 05-25-2024 10:35-0400 Body weight 79.74 kg Halima Coral ROUND CUTTER OPERATOR Work Phone: [facility] 05-25-2024 10:35-0400 Diastolic blood pressure 76 mm[Hg] Halima Coral ROUND CUTTER OPERATOR Work Phone: [facility] 05-25-2024 10:35-0400 Heart rate 92 /min Halima Moncada ROUND CUTTER OPERATOR Work Phone: [facility] [employer] 05-25-2024 10:35-0400 Respiratory rate 18 /min Halima Moncada ROUND CUTTER OPERATOR Work Phone: [facility] [employer] 05-25-2024 10:35-0400 SaO2% (BldA) [Mass fraction] 99 % Halima Moncada ROUND CUTTER OPERATOR Work Phone: [facility] 05-25-2024 10:35-0400 Systolic blood pressure 108 mm[Hg] Halima Moncada ROUND CUTTER OPERATOR Work Phone: [facility] [employer] 05-03-2023 09:05-0400 Body height 157.48 cm Priyanka Jones Other [employer] Other 05-03-2023 09:05-0400 Body mass index (BMI) [Ratio] 35.02 kg/m2 Priyanka Jones Other [employer] Other 05-03-2023 09:05-0400 Body temperature 97.5 [degF] Priyanka Jones Other [employer] Other 05-03-2023 09:05-0400 Body weight 86.86 kg Priyanka Jones Other [employer] Other 05-03-2023 09:05-0400 Diastolic blood pressure 76 mm[Hg] Priyanka Jones Other [employer] Other 05-03-2023 09:05-0400 Respiratory rate 18 /min Priyanka Jones Other [employer] Other 05-03-2023 09:05-0400 SaO2% (BldA) [Mass fraction] 100 % Priyanka Jones Other [employer] Other 05-03-2023 09:05-0400 Systolic blood pressure 117 mm[Hg] Priyanka Jones Other [employer] Other 11-17-2022 11:30-0500 Body height 157.48 cm Mona Yeungault Other [employer] Other 11-17-2022 11:30-0500 Body mass index (BMI) [Ratio] 35.3 kg/m2 Mona Yeungault Other [employer] Other 11-17-2022 11:30-0500 Body temperature 98.7 [degF] Mona Yeungault Other [employer] Other 11-17-2022 11:30-0500 Body weight 87.54 kg Mona Yeungault Other [employer] Other 11-17-2022 11:30-0500 Respiratory rate 18 /min Mona Yeungault Other [employer] Other 11-17-2022 11:30-0500 SaO2% (BldA) [Mass fraction] 98 % Mona Yeungault Other [employer] Other 09-28-2022 16:30-0500 Body height 157.48 cm Moan Mikel Other [employer] Other 09-28-2022 16:30-0500 Body mass index (BMI) [Ratio] 35.3 kg/m2 Mona Mikel Other [employer] Other 09-28-2022 16:30-0500 Body temperature 98 [degF] Mona Morin Other [employer] Other 09-28-2022 16:30-0500 Body weight 87.54 kg Mona Morin Other [employer] Other 09-28-2022 16:30-0500 Diastolic blood pressure 79 mm[Hg] Mona Morin Other [employer] Other 09-28-2022 16:30-0500 Respiratory rate 18 /min Mona Morin Other [employer] Other 09-28-2022 16:30-0500 SaO2% (BldA) [Mass fraction] 98 % Mona Morin Other [employer] Other 09-28-2022 16:30-0500 Systolic blood pressure 130 mm[Hg] Mona Morin Other [employer] Other 07-14-2022 15:00-0400 Body height 157.48 cm Mona Morin Other [employer] Other 07-14-2022 15:00-0400 Body mass index (BMI) [Ratio] 35.66 kg/m2 Mona Morin Other [employer] Other 07-14-2022 15:00-0400 Body weight 88.45 kg Mona Morin Other [employer] Other 07-14-2022 15:00-0400 Diastolic blood pressure 89 mm[Hg] Mona Morin Other [employer] Other 07-14-2022 15:00-0400 Respiratory rate 18 /min Mona Morin Other [employer] Other 07-14-2022 15:00-0400 SaO2% (BldA) [Mass fraction] 98 % Mona Morin Other [employer] Other 07-14-2022 15:00-0400 Systolic blood pressure 145 mm[Hg] Mona Morin Other [employer] Other 06-30-2022 12:00-0400 Body height 157.48 cm Mona Morin Other [employer] Other 06-30-2022 12:00-0400 Body mass index (BMI) [Ratio] 35.48 kg/m2 Mona Morin Other [employer] Other 06-30-2022 12:00-0400 Body temperature 97.7 [degF] Mona Morin Other [employer] Other 06-30-2022 12:00-0400 Body weight 88 kg Mona Morin Other [employer] Other 06-30-2022 12:00-0400 Diastolic blood pressure 87 mm[Hg] Mona Morin Other [employer] Other 06-30-2022 12:00-0400 Respiratory rate 18 /min Mona Yeungault Other [employer] Other 06-30-2022 12:00-0400 SaO2% (BldA) [Mass fraction] 97 % Mona Yeungault Other [employer] Other 06-30-2022 12:00-0400 Systolic blood pressure 136 mm[Hg] Mona Morin Other [employer] Other 02-03-2022 11:00-0400 Body height 157.48 cm Mona Morin Other [employer] Other 02-03-2022 11:00-0400 Body mass index (BMI) [Ratio] 35.84 kg/m2 Mona Morin Other [employer] Other 02-03-2022 11:00-0400 Body temperature 98.2 [degF] Mona Morin Other [employer] Other 02-03-2022 11:00-0400 Body weight 88.91 kg Mona Morin Other [employer] Other 02-03-2022 11:00-0400 Diastolic blood pressure 96 mm[Hg] Mona Morin Other [employer] Other 02-03-2022 11:00-0400 Respiratory rate 18 /min Mona Morin Other [employer] Other 02-03-2022 11:00-0400 SaO2% (BldA) [Mass fraction] 99 % Mona Morin Other [employer] Other 02-03-2022 11:00-0400 Systolic blood pressure 157 mm[Hg] Mona Morin Other [employer] Other 08-31-2021 10:00-0500 Body height 157.48 cm Kaylie Echeverria Other [employer] Other 08-31-2021 10:00-0500 Body mass index (BMI) [Ratio] 35.66 kg/m2 Kaylie Ginty Other [employer] Other 08-31-2021 10:00-0500 Body temperature 98.7 [degF] Kaylie Ginty Other [employer] Other 08-31-2021 10:00-0500 Body weight 88.45 kg Kaylie Ginty Other [employer] Other 08-31-2021 10:00-0500 Respiratory rate 18 /min Kaylie Ginty Other [employer] Other 08-31-2021 10:00-0500 SaO2% (BldA) [Mass fraction] 95 % Kaylie Ginty Other [employer] Other Encounters Encounter Date Encounter Type Care Provider Facility Start: 09-14-2024 End: 09-14-2024 ambulatory KRUNAL GUZMAN Not Available Start: 09-12-2024 End: 09-12-2024 Bamboo flowsheet Krunal Guzman ROUND CUTTER OPERATOR Work Phone: [facility] Start: 09-12-2024 End: 09-12-2024 Bamboo flowsheet Krunal Guzman ROUND CUTTER OPERATOR Work Phone: [facility] [employer] [facility] Start: 09-12-2024 End: 09-12-2024 Office outpatient visit 25 minutes Krunal Guzman ROUND CUTTER OPERATOR [facility] Comment on above: Transient alteration of awareness (Primary Dx); Speech disturbance, unspecified type; Migraine without aura and without status migrainosus, not intractable (CMS/HCC); RLS (restless legs syndrome); Cervical radiculopathy Start: 09-12-2024 End: 09-12-2024 ambulatory KRUNAL GUZMAN Not Available Start: 08-18-2024 End: 08-18-2024 Refill Javier West MD Work Phone: [facility] Comment on above: Gastroesophageal ref lux disease without esophagitis Start: 08-08-2024 End: 08-08-2024 Clinisync Result Encounter Halima Jhonz ROUND CUTTER OPERATOR Work Phone: [facility] Unsolicited Start: 08-08-2024 End: 08-08-2024 Clinisync Result Encounter Halima Lucerohholz ROUND CUTTER OPERATOR Work Phone: [facility] Unsolicited Start: 07-25-2024 End: 07-25-2024 Bamboo flowsheet Halima Aichholz ROUND CUTTER OPERATOR Work Phone: [facility] Start: 07-25-2024 End: 07-25-2024 Bamboo flowsheet Halima Aichholz ROUND CUTTER OPERATOR Work Phone: [facility] Start: 07-25-2024 End: 07-25-2024 Office outpatient visit 25 minutes Halima Coral ROUND CUTTER OPERATOR Work Phone: [facility] Comment on above: Type 2 diabetes jordin itus without complication, without long- term current use of insulin (CMS/HCC) (Primary Dx); Hypothyroidism, unspecified type (CMS/[facility]); Primary hypertension (CMS/HCC); Migraine without aura and without status migrainosus, not intractable (CMS/[facility]); Obesity (BMI 30-39.9) Start: 07-25-2024 End: 07-25-2024 ambulatory HALIMA AICHHOLZ Not Available Start: 07-24-2024 End: 07-24-2024 Office outpatient visit 25 minutes Mich Verdugo MD Work Phone: [facility] Comment on above: Fibromyalgia Start: 07-24-2024 End: 07-24-2024 ambulatory MICH VERDUGO [facility] Start: 07-10-2024 End: 07-10-2024 Refill Halima Jhonz ROUND CUTTER OPERATOR Work Phone: [facility] Comment on above: Type 2 diabetes jordin itus without complication, without long- term current use of insulin ([facility]) (Primary Dx) Start: 06-29-2024 End: 06-29-2024 Refill Halima Aicstarlaholz ROUND CUTTER OPERATOR Work Phone: [facility] Comment on above: Type 2 diabetes jordin itus without complication, without long- term current use of insulin ([facility]) Start: 06-28-2024 End: 06-28-2024 Refill Halima Aichholz ROUND CUTTER OPERATOR Work Phone: [facility] Comment on above: Type 2 diabetes jordin itus without complication, without long- term current use of insulin ([facility]) Start: 06-20-2024 End: 06-20-2024 Bamboo flowsheet Krunal Guzman ROUND CUTTER OPERATOR Work Phone: [facility] Start: 06-20-2024 End: 06-20-2024 Bamboo flowsheet Krunal Guzman ROUND CUTTER OPERATOR Work Phone: [facility] Start: 06-20-2024 End: 06-20-2024 Office outpatient visit 25 minutes Krunal Guzman ROUND CUTTER OPERATOR Work Phone: [facility] Comment on above: Migraine without aur a and without status migrainosus, not intractable ([facility]) (Primary Dx); Insomnia, unspecified type; RLS (restless legs syndrome) Start: 06-20-2024 End: 06-20-2024 ambulatory KRUNAL GUZMAN Not Available Start: 05-26-2024 End: 05-26-2024 Clinisync Result Encounter Halima Coral ROUND CUTTER OPERATOR Work Phone: [facility] External Department Unsolicited Start: 05-26-2024 End: 05-26-2024 Clinisync Result Encounter Halima Coral ROUND CUTTER OPERATOR Work Phone: [facility] External Department Unsolicited Start: 05-25-2024 End: 05-25-2024 Bamboo flowsheet Halima Moncada ROUND CUTTER OPERATOR Work Phone: [facility] Start: 05-25-2024 End: 05-31-2024 Bamboo flowsheet Halima Moncada ROUND CUTTER OPERATOR Work Phone: [facility] Start: 05-25-2024 End: 05-31-2024 Clinisync Result Encounter Halima Moncada ROUND CUTTER OPERATOR Work Phone: [facility] Unsolicited Start: 05-25-2024 End: 05-25-2024 Patient encounter procedure Halima Moncada ROUND CUTTER OPERATOR Work Phone: [facility] Start: 05-25-2024 End: 05-25-2024 Periodic preventive med est patient 40-64yrs Halima Moncada ROUND CUTTER OPERATOR Work Phone: [facility] Comment on above: Encounter for well w roxy exam with routine gynecological exam (Primary Dx); Encounter for screening mammogram for malignant neoplasm of breast; Hypothyroidism, unspecified type (CMS/HCC); Amenorrhea; Dizziness and giddiness Start: 05-25-2024 End: 05-25-2024 ambulatory HALIMA AICHHOLZ Not Available Start: 04-12-2024 End: 04-12-2024 ambulatory [facility] Start: 02-28-2024 End: 02-28-2024 ambulatory Montana Bergeron MD Facility:[facility] Start: 02-23-2024 End: 02-23-2024 ambulatory HALIMA AICHHOLZ Not Available Start: 02-07-2024 End: 02-07-2024 ambulatory HALIMA AICHHOLZ Not Available Start: 02-03-2024 End: 02-03-2024 ambulatory KRUNAL GUZMAN Not Available Start: 01-17-2024 End: 01-17-2024 ambulatory Montana Bergeron MD Facility:[facility] Start: 01-11-2024 End: 01-11-2024 ambulatory HALIMA AICHHOLZ Not Available Start: 12-24-2023 Telephone encounter Saeid Gooden CMA [facility] Start: 11-04-2023 End: 11-04-2023 ambulatory TD BERUMEN [facility] Start: 10-26-2023 End: 10-26-2023 ambulatory HALIMA MONCADA Not Available Start: 05-03-2023 End: 05-03-2023 ambulatory Priyanka Jones Other [employer] Other Start: 05-03-2023 Office outpatient vi sit 15 minutes Priyanka Jones [facility] Start: 01-22-2023 End: 01-23-2023 ambulatory MONA MIKEL Facility: Start: 11-23-2022 End: 11-23-2022 ambulatory Mona Mikel Other [employer] Other Start: 11-23-2022 Telephone encounter Mona hyde [facility] Start: 11-20-2022 End: 11-20-2022 ambulatory Mona Mikel Other [employer] Other Start: 11-20-2022 Encounter by computer link Mona Morin [facility] Start: 11-17-2022 End: 11-18-2022 ambulatory MONALWAANDA MORIN [employer] Other Start: 11-17-2022 Office outpatient vi sit 15 minutes Mona Morin [facility] Start: 10-06-2022 End: 10-06-2022 ambulatory Monalawanda Morin Other [employer] Other Start: 10-06-2022 Telephone encounter Mona hyde [facility] Start: 09-29-2022 End: 09-29-2022 ambulatory PHYSICIAN NO [facility] Work Phone: Start: 09-29-2022 End: 09-29-2022 Departed Referred PHYSICIAN NO [facility] [place] Work Phone: Start: 09-28-2022 End: 09-28-2022 ambulatory Mona Mikel Other [employer] Other Start: 09-28-2022 Office outpatient vi sit 15 minutes Mona Mikel [facility] Start: 09-14-2022 End: 09-14-2022 ambulatory Mona Mikel Other [employer] Other Start: 09-14-2022 Telephone encounter Mona Breaul t [facility] Start: 07-14-2022 End: 07-14-2022 ambulatory Mona Mikel Other [employer] Other Start: 07-14-2022 Office outpatient vi sit 15 minutes Mona Mikel [facility] Start: 06-30-2022 End: 06-30-2022 ambulatory Mona Mikel Other [employer] Other Start: 06-30-2022 Office outpatient vi sit 15 minutes Mona Mikel [facility] Start: 04-02-2022 End: 04-02-2022 ambulatory Mona Mikel Other [employer] Other Start: 04-02-2022 Telephone encounter Mona Breaul t [facility] Start: 03-31-2022 Telephone encounter Mona Breaul t [facility] Start: 03-31-2022 End: 04-01-2022 ambulatory MONA MIKEL [employer] Other Start: 02-03-2022 End: 02-03-2022 ambulatory Mona Mikel Other [employer] Other Start: 02-03-2022 Office outpatient vi sit 15 minutes Mona Mikel [facility] Start: 12-10-2021 End: 12-10-2021 ambulatory Mona Morin Other [employer] Other Start: 12-10-2021 Telephone encounter Monalawanda Palmerl t [facility] Start: 11-10-2021 End: 11-10-2021 ambulatory Mona Morin Other [employer] Other Start: 11-10-2021 Telephone encounter Mona Bretrevorl t [facility] Start: 09-03-2021 End: 09-03-2021 ambulatory Kaylie Ginty Other [employer] Other Start: 09-03-2021 Telephone encounter Kaylie Ginty [facility] Start: 08-31-2021 End: 08-31-2021 ambulatory Kaylie Ginty Other [employer] Other Start: 08-31-2021 Office outpatient vi sit 15 minutes Kaylie Ginty [facility] Procedures Date Procedure Procedure Detail Performing Clinician Start: 09-13-2024 Mammography Krunal monique ROUND CUTTER OPERATOR Work Phone: Start: 08-08-2024 MLR HEMOGLOBIN A1C Halima Moncada ROUND CUTTER OPERATOR Work Phone: Start: 05-26-2024 ALL THYROID STIM HORMONE Halima Moncada ROUND CUTTER OPERATOR Work Phone: Start: 05-26-2024 TBH PREG QUANT HCG Halima Moncada ROUND CUTTER OPERATOR Work Phone: Start: 05-25-2024 IGP,APTIMA HPV,AGE GDLN Halima Moncada ROUND CUTTER OPERATOR Work Phone: Start: 09-13-2023 Mammography Halima grande ROUND CUTTER OPERATOR Work Phone: Start: 11-25-2020 Microscopic observat ion [Identifier] in Cervix by Cyto stain Halima Moncada ROUND CUTTER OPERATOR Work Phone: Start: 10-11-2017 Mammography Saeid hogue [facility] Start: 02-05-2017 Microscopic observat ion [Identifier] in Cervix by Cyto stain Saeid Gooden [employer] IRRIGATOR Plan of Treatment Date Care Activity Detail Author Start: 05-25-2029 Screening for malignant neoplasm of cervix [facility] Start: 09-13-2025 Screening for malignant neoplasm of breast Mammogram [facility] Start: 07-24-2025 Adult BMI Screening Adult BMI Screen ing [facility] Start: 07-24-2025 Tobacco Screening Tobacco Screening [facility] Start: 07-24-2025 End: 07-24-2025 Patient encounter procedure 07/24/2025 10:15 AM EDT Office Visit [facility] [address] [phone] Mich Verdugo MD [address] [address] [facility] Start: 02-05-2025 Hemoglobin A1c measurement Diabetes: Hemoglobin A1C [facility] Start: 01-31-2025 Urine screening for protein Diabetes: Urine Protein Screening [facility] Start: 01-22-2025 End: 01-22-2025 Patient encounter procedure 01/22/2025 9:00 AM EDT Office Visit [facility] [address] [place] [id number] Halima Moncada NP [address] [place] [address] [facility] Start: 11-06-2024 End: 11-06-2024 Patient encounter procedure 11/06/2024 1:00 PM EST Office Visit [facility] [address] [place] [phone] Becky Pace, DO [address] [place] [address] [facility] Start: 10-28-2024 Glaucoma screening Diabetes: R etinopathy Screening [facility] Start: 09-14-2024 End: 09-14-2024 Professional / ancillary services management 09/14/2024 9:45 AM EST Ancillary Procedure [facility] [address] [place] [address] [facility] Start: 09-13-2024 End: 07-25-2025 MG Breast - bilateral Screening Bilateral screening mammogram Imaging Routine Encounter for screening mammogram for malignant neoplasm of breast Expected: 09/13/2024 (Approximate), Expires: 07/25/2025 [facility] Work Phone: Comment on above: Expected: 09/13/2024 (Approximate), Expires: 07/25/2025 Start: 09-13-2024 Screening for malignant neoplasm of breast Mammogram [facility] Start: 09-13-2024 Screening for malignant neoplasm of colon Colorectal Cancer Screening [facility] Comment on above: Postponed from 12/05 (Patient Refused) Start: 09-12-2024 End: 09-12-2025 EEG, Including Recording Awake or Asleep EEG, Including Recording Awake or Asleep Neurology Routine Transient alteration of awareness Expected: 09/12/2024 (Approximate), Expires: 09/12/2025 [facility] Comment on above: Expected: 09/12/2024 (Approximate), Expires: 09/12/2025 Start: 09-12-2024 End: 09-12-2025 MR Brain WO contrast MR brain wo contrast Imaging Routine Transient alteration of awareness Speech disturbance, unspecified type Expected: 09/12/2024 (Approximate), Expires: 09/12/2025 [facility] Work Phone: Comment on above: Expected: 09/12/2024 (Approximate), Expires: 09/12/2025 Start: 09-12-2024 End: 09-12-2024 Patient encounter procedure [facility] Comment on above: Arrived Start: 08-03-2024 Hemoglobin A1c measurement Diabetes: Hemoglobin A1C [facility] Start: 07-25-2024 End: 07-25-2025 Hemoglobin A1c/Hemoglobin.total in Blood Hemoglobin A1c Lab Routine Type 2 diabetes mellitus without complication, without long-term current use of insulin (CMS/HCC) Expected: 07/25/2024 (Approximate), Expires: 07/25/2025 [facility] Work Phone: Comment on above: Expected: 07/25/2024 (Approximate), Expires: 07/25/2025 Start: 07-25-2024 End: 07-25-2024 Patient encounter procedure [facility] Comment on above: Type 2 diabetes jordin itus without complication, without long- term current use of insulin (CMS/HCC) (Primary Dx); Hypothyroidism, unspecified type (CMS/HCC); Primary hypertension (CMS/HCC) Start: 06-20-2024 End: 06-20-2024 Patient encounter procedure [facility] [address] Comment on above: Arrived Start: 06-19-2024 End: 06-19-2024 Patient encounter procedure 06/19/2024 9:20 AM EDT Office Visit [facility] [address] [place] [address] Halima Moncada NP [address] [place] [address] [facility] Start: 05-28-2024 Influenza vaccination [facility] Start: 05-26-2024 Adult BMI Screening Adult BMI Screen ing [facility] Start: 05-26-2024 Tobacco Screening Tobacco Screening [facility] Start: 05-25-2024 End: 05-25-2025 HCG, quantitative, HCG, quantitative, Lab Routine Amenorrhea Expected: 05/25/2024 (Approximate), Expires: 05/25/2025 [facility] Comment on above: Expected: 05/25/2024 (Approximate), Expires: 05/25/2025 Start: 05-25-2024 End: 05-25-2025 Prolactin level Prolactin level Lab Routine Amenorrhea Expected: 05/25/2024 (Approximate), Expires: 05/25/2025 [facility] Comment on above: Expected: 05/25/2024 (Approximate), Expires: 05/25/2025 Start: 05-25-2024 End: 05-25-2025 THIN PREP TIS PAP AND HR HPV DNA THIN PREP TIS PAP AND HR HPV DNA Pathology and Cytology Routine Encounter for well woman exam with routine gynecological exam Expected: 05/25/2024 (Approximate), Expires: 05/25/2025 [facility] Comment on above: Expected: 05/25/2024 (Approximate), Expires: 05/25/2025 Start: 05-25-2024 End: 05-25-2025 Thyrotropin [Units/volume] in Serum or Plasma TSH Lab Routine Hypothyroidism, unspecified type (CMS/HCC) Amenorrhea Expected: 05/25/2024 (Approximate), Expires: 05/25/2025 [facility] Comment on above: Expected: 05/25/2024 (Approximate), Expires: 05/25/2025 Start: 05-25-2024 End: 05-25-2025 Thyroxine (T4) free [Mass/volume] in Serum or Plasma T4, free Lab Routine Hypothyroidism, unspecified type (CMS/HCC) Expected: 05/25/2024 (Approximate), Expires: 05/25/2025 [facility] Comment on above: Expected: 05/25/2024 (Approximate), Expires: 05/25/2025 Start: 05-25-2024 End: 05-25-2025 US Pelvis transvaginal US pelvis transvaginal Imaging Routine Amenorrhea Expected: 05/25/2024 (Approximate), Expires: 05/25/2025 [facility] Comment on above: Expected: 05/25/2024 (Approximate), Expires: 05/25/2025 Start: 05-25-2024 End: 05-25-2024 Patient encounter procedure 05/25/2024 10:30 AM EDT Procedure Visit [facility] [address] [place] [address] Halima Moncada NP [address] [place] [address] Encounter for screening mammogram for malignant neoplasm of breast (Primary Dx) [facility] Comment on above: Encounter for screen ing mammogram for malignant neoplasm of breast (Primary Dx) Start: 11-26-2023 Screening for malignant neoplasm of cervix [facility] Start: 05-28-2023 Influenza vaccination Influenza Vacc ine [facility] Start: 09-29-2022 Aerobic Culture Aerobic Culture [facility] Start: 09-29-2022 Anaerobic Culture Anaerobic Culture [facility] Start: 09-29-2022 Microscopic observation [Identifier] in Unspecified specimen by Gram stain Gram Stain [facility] Start: 02-06-2020 Screening for malignant neoplasm of cervix Pap Smear [facility] Start: 10-11-2018 Screening for malignant neoplasm of breast Mammogram [facility] Start: 2006 Screening for malignant neoplasm of cervix HPV/Cotest [facility] Start: 12-06-1995 DTaP,Tdap and Td Vaccines (1 - Tdap) DTaP,Tdap and Td Vaccines (1 - Tdap) [facility] Start: 1994 Adult BMI Follow Up Plan Adult BMI Follow Up Plan [facility] Start: 1988 Depression Screening Depression Scre [facility] Start: 1976 Screening for malignant neoplasm of colon [facility] Bacteria identified in Unspecified specimen by Aerobe culture [facility] Bacteria identified in Unspecified specimen by Anaerobe culture [facility] Immunizations Immunization Date Immunization Notes Care Provider Freedom jaimes 10-01-2020 influenza virus vacc ine, unspecified formulation Saeid Gooden [facility] Payers Date Payer Category Payer Medicaid [id number] 2022 Medicaid [id number] 2019 [facility] BCBS Memb er Subscriber Plan / Payer (Effective 2019-Present) Name: Tatiana Sepulveda Relation to Subscriber: Spouse Name: LENIN SEPULVEDA Date of : 1975 (Home) Address: [address] [place] [address] Payer ID: Not on file Type: Not on file Address: [address] [place] [id number] 2017 [employer] Managed [employer] - Other ANTH [id number] 2017 Unknown [id number]. 1.13.424.2. [id number] 1976 Unknown [id number] 2.16840.1.225527.3.579.2. 593 1976 Unknown [id number] 2.16.840.1.908801.3.579.2. 593 1976 Unknown [id number] 2.16.840.1.812130.3.579.2. 593 1976 Unknown [id number] 2.16.840.1.244796.3.579.2. 196 1976 Unknown [id number] 2.16.840.1.653785.3.579.2. 196 1976 Unknown [id number] 2.16.840.1.059592.3.579.2. 1286 1976 Unknown [id number] 2.16.840.1.693148.3.579.2. 1285 1976 Unknown [id number] 2.16.840.1.114428.3.579.2. 1285 1976 Unknown [id number] 2.16.840.1.611619.3.579.2. 1258 1976 Unknown [id number] 2.16.840.1.992670.3.579.2. 1258 1976 Unknown [id number] 2.16.840.1.611534.3.579.2. 1258 1976 Unknown [id number] 2.16.840.1.018954.3.579.2. 1258 1976 Unknown [id number] 2.16.840.1.239635.3.579.2. 1258 1976 Unknown [id number] 2.16.840.1.445507.3.579.2. 1258 1976 Unknown [id number] 2.16.840.1.816100.3.579.2. 1258 1976 Unknown [id number] 2.16.840.1.355791.3.579.2. 1258 1976 Unknown [id number] 2.16.840.1.663138.3.579.2. 1258 1976 Unknown [id number]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 Breasts: Marco Score is 5. Breasts are symmetrical. Right: Normal. Left: Normal. Abdominal: General: Bowel sounds are normal. There is no distension. Palpations: Abdomen is soft. There is no mass. Tenderness: There is no abdominal tenderness. Genitourinary: General: Normal vulva. Exam position: Lithotomy position. Pubic Area: No rash or pubic lice. Labia: Right: No rash, tenderness, lesion or injury. Left: No rash, tenderness, lesion or injury. Urethra: No prolapse or urethral pain. Vagina: Vaginal discharge (white milky) present. No erythema, tenderness, bleeding, lesions or prolapsed vaginal sinclair. Cervix: Normal. No cervical motion tenderness, friability, lesion, erythema or eversion. Uterus: Normal. Not enlarged and not tender. Adnexa: Right: No mass, tenderness or fullness. Left: No mass, tenderness or fullness. Rectum: Normal. Comments: Bimanual exam limited some with body habitus Musculoskeletal: General: Normal range of motion. Cervical back: Normal range of motion and neck supple. Right lower leg: No edema. Left lower leg: No edema. Lymphadenopathy: Cervical: No cervical adenopathy. Upper Body: Right upper body: No supraclavicular, axillary or pectoral adenopathy. Left upper body: No supraclavicular, axillary or pectoral adenopathy. Lower Body: No right inguinal adenopathy. No left inguinal adenopathy. Skin: General: Skin is warm and dry. Capillary Refill: Capillary refill takes 2 to 3 seconds. Findings: No rash. Neurological: General: No focal deficit present. Mental Status: She is alert and oriented to person, place, and time. Psychiatric: Mood and Affect: Mood normal. Behavior: Behavior normal. Thought Content: Thought content normal. Judgment: Judgment normal. ASSESSMENT AND PLAN: No follow-ups on file. Problem List Items Addressed This Visit Hypothyroidism (CMS/HCC) Will recheck, to r.o abnormal and possible cause of her amenorrhea Relevant Orders TSH T4, free Encounter for screening mammogram for malignant neoplasm of breast Relevant Orders Bilateral screening mammogram Amenorrhea Recheck quant, prolactin, thyroid Check pelvic US Relevant Orders TSH HCG, quantitative, US pelvis transvaginal Prolactin level Encounter for well woman exam with routine gynecological exam - Primary Monthly BSE Yearly mammograms PAP as indicated Healthy diet and exercise Relevant Orders THIN PREP TIS PAP AND HR HPV DNA Dizziness and giddiness Hold lisinopril at this time If after a few weeks if not better call office documented in this encounter [facility] 12-24-2023 Miscellaneous Notes Formattin g of this note might be different from the original. Attempted to contact patient to reschedule appointment on 05/31/[address] Verdugo is out of the office. No Vm set up to leave a message. documented in this encounter [facility] 12-24-2023 Telephone encount er Note Attempted to contact patient to reschedule appointment on 05/31/[address] Verdugo is out of the office. No Vm set up to leave a message. [facility] 05-03-2023 Evaluation note Encounter Date Diagnosis Assessment [...] fever. Patient/Parent verbalized understanding of treatment plan. [facility] Other 02-21-2023 Evaluation note* Encounter Date Diagnosis [...] weeks for the cough to go away [facility] Other 01-02-2023 Evaluation note* Encounter Date Diagnosis [...] obtained for C&S. Will call with results. [facility] Other 12-19-2022 Evaluation note* Encounter Date Diagnosis Assessment Notes Treatment Notes Treatment Clinical Notes Aug, Gastroesophageal ref lux disease, unspecified whether esophagitis present (ICD-10 - K21.9) Aug, PCOS (polycystic ovarian syndrome) (ICD-10 - E28.2) [facility] Other 10-18-2022 Evaluation note* Encounter Date Diagnosis Assessment Notes Treatment Notes Treatment Clinical Notes Jun, Fibromyalgia (ICD-10 - M79.7) Continue current treatment regimen. Printed off script to use as needed [facility] Other 10-04-2022 Evaluation note* Encounter Date Diagnosis Assessment Notes Treatment Notes Treatment Clinical Notes Jun, Primary hypertension (ICD-10 - I10) Jun, SJ (generalized anxiety disorder) (ICD-10 - F41.1) [facility] Other 07-07-2022 Evaluation note* Encounter Date Diagnosis Assessment Notes Treatment Notes Treatment Clinical Notes Mar, Right hip pain (ICD-10 - M25.551) [facility] Other 05-10-2022 Evaluation note* Encounter Date Diagnosis Assessment Notes Treatment Notes Treatment Clinical Notes January, Gastroesophageal ref lux disease, unspecified whether esophagitis present (ICD-10 - K21.9) Continue to take medication as directed. January, PCOS (polycystic ovarian syndrome) (ICD-10 - E28.2) Take medication as directed with food [facility] Other 03-16-2022 Evaluation note* Encounter Date Diagnosis Assessment Notes Treatment Notes Treatment Clinical Notes Nov, Sacral back pain (ICD-10 - M53.3) [facility] Other 02-14-2022 Evaluation note* Encounter Date Diagnosis Assessment Notes Treatment Notes Treatment Clinical Notes Oct, Gastroesophageal ref lux disease, unspecified whether esophagitis present (ICD-10 - K21.9) [facility] Other 02-14-2022 Evaluation note* Encounter Date Diagnosis Assessment Notes Treatment Notes Treatment Clinical Notes Oct, Sacral back pain (ICD-10 - M53.3) [facility] Other 2021 Evaluation note* Encounter Date Diagnosis [...] Patient care instructions given in writting by [facility] document. [facility] [employer] Other Evaluation [facility]No [facility] Other Evaluation noteNo assessment information available [facility] Work Phone: Evaluation note* Diagnosis Type 2 diabetes mellitus without complication, without long-term current use of insulin ([facility]) documented in this encounter [facility]* Diagnosis Type 2 diabetes mellitus without complication, without long-term current use of insulin ([facility]/HCC)- Primary Primary hypertension (CMS/HCC) Unspecified essential hypertension Hypothyroidism, unspecified type (CMS/[facility]) Class 1 obesity without serious comorbidity with body mass index (BMI) of 33.0 to 33.9 in adult, unspecified obesity type Gastroesophageal reflux disease without esophagitis Esophageal reflux Varicose veins of both legs with edema EDS (Jen-Danlos syndrome) (CMS/HCC) Jen-Danlos syndrome Type 2 diabetes mellitus without complication, without long-term current use of insulin (CMS/HCC)- Primary BMI 33.0-33.9,adult Varicose veins of both legs with edema Cervical radiculopathy- Primary Brachial neuritis or radiculitis nos Class 1 obesity without serious comorbidity with body mass index (BMI) of 33.0 to 33.9 in adult, unspecified obesity type Strain of right trapezius muscle, initial encounter Herpes zoster without complication- Primary Class 1 obesity without serious comorbidity with body mass index (BMI) of 33.0 to 33.9 in adult, unspecified obesity type Herpes zoster without complication- Primary Type 2 diabetes mellitus without complication, without long-term current use of insulin (CMS/HCC) Primary hypertension (CMS/HCC) Unspecified essential hypertension Gastroesophageal reflux disease without esophagitis Esophageal reflux Hypothyroidism, unspecified type (CMS/HCC) Obesity (BMI 30-39.9) Encounter for well woman exam with routine gynecological exam- Primary Encounter for screening mammogram for malignant neoplasm of breast Hypothyroidism, unspecified type (CMS/HCC) Amenorrhea Absence of menstruation Dizziness and giddiness Type 2 diabetes mellitus without complication, without long-term current use of insulin (CMS/HCC)- Primary documented in this encounter [facility]* Diagnosis Fibromyalgia Unspecified myalgia and myositis [facility] Diagnosis Type 2 diabetes mellitus without complication, without long-term current use of insulin (CMS/HCC)- Primary Primary hypertension (CMS/HCC) Unspecified essential hypertension Hypothyroidism, unspecified type (CMS/HCC) Class 1 obesity without serious comorbidity with body mass index (BMI) of 33.0 to 33.9 in adult, unspecified obesity type Gastroesophageal reflux disease without esophagitis Esophageal reflux Varicose veins of both legs with edema EDS (Jen-Danlos syndrome) (CMS/HCC) Jen-Danlos syndrome Type 2 diabetes mellitus without complication, without long-term current use of insulin (CMS/HCC)- Primary BMI 33.0-33.9,adult Varicose veins of both legs with edema Cervical radiculopathy- Primary Brachial neuritis or radiculitis nos Class 1 obesity without serious comorbidity with body mass index (BMI) of 33.0 to 33.9 in adult, unspecified obesity type Strain of right trapezius muscle, initial encounter Herpes zoster without complication- Primary Class 1 obesity without serious comorbidity with body mass index (BMI) of 33.0 to 33.9 in adult, unspecified obesity type Herpes zoster without complication- Primary Type 2 diabetes mellitus without complication, without long-term current use of insulin (CMS/HCC) Primary hypertension (CMS/HCC) Unspecified essential hypertension Gastroesophageal reflux disease without esophagitis Esophageal reflux Hypothyroidism, unspecified type (CMS/HCC) Obesity (BMI 30-39.9) Encounter for well woman exam with routine gynecological exam- Primary Encounter for screening mammogram for malignant neoplasm of breast Hypothyroidism, unspecified type (CMS/HCC) Amenorrhea Absence of menstruation Dizziness and giddiness Type 2 diabetes mellitus without complication, without long-term current use of insulin (CMS/HCC)- Primary Hypothyroidism, unspecified type (CMS/HCC) Primary hypertension (CMS/HCC) Unspecified essential hypertension Migraine without aura and without status migrainosus, not intractable (CMS/HCC) Obesity (BMI 30-39.9) documented [facility]* Diagnosis Type 2 diabetes mellitus without complication, without long-term current use of insulin (CMS/HCC)- Primary Primary hypertension (CMS/HCC) Unspecified essential hypertension Hypothyroidism, unspecified type (CMS/HCC) Class 1 obesity without serious comorbidity with body mass index (BMI) of 33.0 to 33.9 in adult, unspecified obesity type Gastroesophageal reflux disease without esophagitis Esophageal reflux Varicose veins of both legs with edema EDS (Jen-Danlos syndrome) (CMS/HCC) Jen-Danlos syndrome Type 2 diabetes mellitus without complication, without long-term current use of insulin (CMS/HCC)- Primary BMI 33.0-33.9,adult Varicose veins of both legs with edema Cervical radiculopathy- Primary Brachial neuritis or radiculitis nos Class 1 obesity without serious comorbidity with body mass index (BMI) of 33.0 to 33.9 in adult, unspecified obesity type Strain of right trapezius muscle, initial encounter Herpes zoster without complication- Primary Class 1 obesity without serious comorbidity with body mass index (BMI) of 33.0 to 33.9 in adult, unspecified obesity type Herpes zoster without complication- Primary Type 2 diabetes mellitus without complication, without long-term current use of insulin (CMS/HCC) Primary hypertension (CMS/HCC) Unspecified essential hypertension Gastroesophageal reflux disease without esophagitis Esophageal reflux Hypothyroidism, unspecified type (CMS/HCC) Obesity (BMI 30-39.9) Encounter for well woman exam with routine gynecological exam- Primary Encounter for screening mammogram for malignant neoplasm of breast Hypothyroidism, unspecified type ([facility]) Amenorrhea Absence of menstruation Dizziness and giddiness Type 2 diabetes mellitus without complication, without long-term current use of insulin ([facility])- Primary Hypothyroidism, unspecified type (CMS/HCC) Primary hypertension (CMS/HCC) Unspecified essential hypertension Migraine without aura and without status migrainosus, not intractable (CMS/[facility]) Obesity (BMI 30-39.9) Gastroesophageal reflux disease without esophagitis Esophageal reflux documented in this encounter [facility]* Diagnosis Encounter for well woman exam with routine gynecological exam- Primary Encounter for screening mammogram for malignant neoplasm of breast Hypothyroidism, unspecified type ([facility]) Amenorrhea Absence of menstruation Dizziness and giddiness documented in this encounter [facility]* Diagnosis Migraine without aura and without status migrainosus, not intractable (CMS/[facility])- Primary Insomnia, unspecified type RLS (restless legs syndrome) Restless legs syndrome (RLS) documented in this encounter [facility]* Diagnosis Type 2 diabetes mellitus without complication, without long-term current use of insulin ([facility])- Primary Primary hypertension (CMS/[facility]) Unspecified essential hypertension Hypothyroidism, unspecified type ([facility]) Class 1 obesity without serious comorbidity with body mass index (BMI) of 33.0 to 33.9 in adult, unspecified obesity type Gastroesophageal reflux disease without esophagitis Esophageal reflux Varicose veins of both legs with edema EDS (Jen-Danlos syndrome) ([facility]) Jen-Danlos syndrome Type 2 diabetes mellitus without complication, without long-term current use of insulin ([facility])- Primary BMI 33.0-33.9,adult Varicose veins of both legs with edema Cervical radiculopathy- Primary Brachial neuritis or radiculitis nos Class 1 obesity without serious comorbidity with body mass index (BMI) of 33.0 to 33.9 in adult, unspecified obesity type Strain of right trapezius muscle, initial encounter Herpes zoster without complication- Primary Class 1 obesity without serious comorbidity with body mass index (BMI) of 33.0 to 33.9 in adult, unspecified obesity type Herpes zoster without complication- Primary Type 2 diabetes mellitus without complication, without long-term current use of insulin ([facility]) Primary hypertension (CMS/HCC) Unspecified essential hypertension Gastroesophageal reflux disease without esophagitis Esophageal reflux Hypothyroidism, unspecified type (CMS/HCC) Obesity (BMI 30-39.9) Encounter for well woman exam with routine gynecological exam- Primary Encounter for screening mammogram for malignant neoplasm of breast Hypothyroidism, unspecified type (CMS/HCC) Amenorrhea Absence of menstruation Dizziness and giddiness Type 2 diabetes mellitus without complication, without long-term current use of insulin (CMS/HCC)- Primary Hypothyroidism, unspecified type (CMS/HCC) Primary hypertension (CMS/HCC) Unspecified essential hypertension Migraine without aura and without status migrainosus, not intractable (CMS/HCC) Obesity (BMI 30-39.9) Transient alteration of awareness- Primary Speech disturbance, unspecified type Migraine without aura and without status migrainosus, not intractable (CMS/HCC) RLS (restless legs syndrome) Restless legs syndrome (RLS) Cervical radiculopathy Brachial neuritis or radiculitis nos documented in this encounter [facility] Narrative - Reported* Type Description Date Medical History asthma Medical History pcos Medical History Fibromyalgia Medical History Hypothyroidism - euthyroid Medical History chronic fatigue Surgical History gall bladder Surgical History vein removed in bilaterally Surgical History gastric sleeve Hospitalization History see above Hospitalization History CHILD X'S 5 [facility] Other InstructionsNot on filedocumented in this encounter Connexity SystemInstructionsNot on filedocumented in this encounter [facility] SystemReason for visit NarrativeDermatology Referral Update [facility] Other Summary Purpose Family History No Family History Records FoundNo Family History Records FoundNo Family History Records FoundNo Family History Records FoundNo Family History Records FoundNo Family History Records Found Advance Directives Advance Directive Response Recorded Date/ Time Advance Directives No July 12:06pm Latest Code Status on File Code Status Date Activated Date Inactivated Comments Full Code 01/24/2018 11:30 AM 01/26/2018 12:39 PM Date Activated Date Inactivated Comments 01/24/2018 11:30 AM 01/26/2018 12:39 PM Chief Complaint and Reason for Visit Chief Complaint Ragged cuticle Reason for Referral Specialty Diagnoses / Procedures Referred By Lm hyde Referred To Contact Diagnoses Type 2 diabetes mellitus without complication, without long-term current use of insulin (CMS/HCC) Hailma Moncada NP [address] [place] [address] Referral ID Status Reason Start Date Expiration Date V isits Requested Visits Authorized [id number] Pending Review 1 1 Additional Source Comments REASON FOR VISIT (unrecogniz ed section and content) Reason Comments Med Refill Reason Comments Migraine Insomnia Restless Legs Reason Comments Migraine Insomnia Restless Legs INFORMATION SOURCE (unrecogn ized section and content) DATE CREATED AUTHOR 03/27/2022 [facility] DATE CREATED AUTHOR AUTHOR'S ORGANIZ ATION 01/29/2023 [facility] DATE CREATED AUTHOR AUTHOR'S ORGANIZ ATION 03/07/2024 [facility] DATE CREATED AUTHOR AUTHOR'S ORGANIZ ATION 04/16/2024 [facility] DATE CREATED AUTHOR AUTHOR'S ORGANIZ ATION 07/24/2024 [facility] DATE CREATED AUTHOR AUTHOR'S ORGANIZ ATION 09/15/2024 [facility] EPIC Care Teams (unrecognized sec tion and content) Team Status: Inactive Member Role Status Dates PHYSICIAN NO FAMILY Primary Care Provider Active BRENT Jha-Flora Attending Provider Active Team Status: Active Member Role Status Dates PHYSICIAN NO FAMILY Primary Care Provider Active Quality Assurance Analyst Relationship Specialty Start Date End Date Mona Morin APRN-[employer] [address] [place] [address] PCP - General Family Medicine 01/08/21 Quality Assurance Analyst Relationship Specialty Start Date End Date Javier West MD [address] [place] [address] PCP - General Family Medicine 01/11/24 Halima Moncada NP [address] [place] [address] Nurse Practitioner Family Medicine 06/02/23 Halima Moncada NP [address] [place] [address] Nurse Practitioner Family Medicine 01/11/24 Quality Assurance Analyst Relationship Specialty Start Date End Date Javier West MD [address] [place] [address] PCP - General Family Medicine 01/11/24 Halima Moncada NP [address] [place] [address] Nurse Practitioner Family Medicine 06/02/23 Halima Moncada NP [address] [place] [address] Nurse Practitioner Family Medicine 01/11/24 Quality Assurance Analyst Relationship Specialty Start Date End Date Mona Morin APRN-[facility] [address] [place] [address] PCP - General Family Medicine 01/08/21 Quality Assurance Analyst Relationship Specialty Start Date End Date Javier West MD [address] [place] [address] PCP - General Family Medicine 01/11/24 Halima Moncada NP [address] [place] [address] Nurse Practitioner Family Medicine 06/02/23 Halima Moncada NP [address] [place] [address] Nurse Practitioner Family Medicine 01/11/24 Quality Assurance Analyst Relationship Specialty Start Date End Date Javier West MD [address] [place] [address] PCP - General Family Medicine 01/11/24 Halima Moncada NP [address] [place] [address] PCP - [employer] 06/27/24 Halima Moncada NP [address] [place] [address] Nurse Practitioner Family Medicine 06/02/23 Halima Moncada NP [address] [place] [address] Nurse Practitioner Family Medicine 01/11/24 Quality Assurance Analyst Relationship Specialty Start Date End Date Javier West MD [address] [place] [address] PCP - General Family Medicine 01/11/24 Halima Moncada NP [address] [place] [address] PCP - [employer] 06/27/24 Halima Moncada NP [address] [place] [address] Nurse Practitioner Family Medicine 06/02/23 Halima Moncada NP [address] [place] [address] Nurse Practitioner Family Medicine 01/11/24 Quality Assurance Analyst Relationship Specialty Start Date End Date Javier West MD [address] [place] [address] PCP - General Family Medicine 01/11/24 Halima Mocnada NP [address] [place] [address] Nurse Practitioner Family Medicine 06/02/23 Halima Moncada NP [address] [place] [address] Nurse Practitioner Family Medicine 01/11/24 Becky Pace DO [address] [place] [address] Referring Physician Neurology 09/12/24 Quality Assurance Analyst Relationship Specialty Start Date End Date Javier West MD [address] [place] [address] PCP - General Family Medicine 01/11/24 Halima Moncada NP [address] [place] [address] Nurse Practitioner Family Medicine 06/02/23 Halima Moncada NP [address] [place] [address] Nurse Practitioner Family Medicine 01/11/24 Quality Assurance Analyst Relationship Specialty Start Date End Date Javier West MD [address] [place] [address] PCP - General Family Medicine 01/11/24 Halima Moncada NP [address] [place] [address] Nurse Practitioner Family Medicine 06/02/23 Halima Moncada NP [address] [place] [address] Nurse Practitioner Family Medicine 01/11/24 Quality Assurance Analyst Relationship Specialty Start Date End Date Javier West MD [address] [place] [address] PCP - General Family Medicine 01/11/24 Halima Moncada NP [address] [place] [address] Nurse Practitioner Family Medicine 06/02/23 Halima Moncada NP [address] [place] [address] Nurse Practitioner Family Medicine 01/11/24 Quality Assurance Analyst Relationship Specialty Start Date End Date Javier West MD [address] [place] [address] PCP - General Family Medicine 01/11/24 Halima Moncada NP [address] [place] [address] Nurse Practitioner Family Medicine 06/02/23 Halima Moncada NP [address] [place] [address] Nurse Practitioner Family Medicine 01/11/24 Quality Assurance Analyst Relationship Specialty Start Date End Date Javier West MD [address] [place] [address] PCP - General Family Medicine 01/11/24 Halima Moncada NP [address] [place] [address] Nurse Practitioner Family Medicine 06/02/23 Halima Moncada NP [address] [place] [address] Nurse Practitioner Family Medicine 01/11/24 Quality Assurance Analyst Relationship Specialty Start Date End Date Javier West MD [address] [place] [address] PCP - General Family Medicine 01/11/24 Halima Moncada NP [address] [place] [address] Nurse Practitioner Family Medicine 06/02/23 Halima Moncada NP [address] [place] [address] Nurse Practitioner Family Medicine 01/11/24 Quality Assurance Analyst Relationship Specialty Start Date End Date Javier West MD [address] [place] [address] PCP - General Family Medicine 01/11/24 Halima Moncada NP [address] [place] [address] Nurse Practitioner Family Medicine 06/02/23 Halima Moncada NP [address] [place] [address] Nurse Practitioner Family Medicine 01/11/24 Becky Pace DO [address] [place] [address] Referring Physician Neurology 09/12/24 Goals (unrecognized section and content) Goals may [...] BE BASED ON THE PRIMARY CLINICAL RECORDS. [facility] [employer] provides no warranty or guarantee of the accuracy or completeness of information in this document.
== END 2024-10-27 08:40 | disposition home or self-care (01) ==
LOC: MRI 08:40
PROVIDERS: PCP Nurse Practitioner; Visit Provider Psychiatry & Neurology Neurology
DX: R40.4 Transient alteration of awareness (principal); R47.9 Unspecified speech disturbances
CPT/HCPCS: 70551

== ENCOUNTER 2024-11-29 11:06 | Outpatient (OUT) | payer BC, MEDICAID, SELFPAY ==
--- NOTE | 2024-11-29 11:48 | PM.CN ---
Consult Note: HPI Data of Consult Patient: known to practice within the last 3 years Requesting Physician: Tegan Grubbs NP Primary Care Provider: Halima Moncada NP Consult Narrative Reason for consult: f/u Narrative: 48yof who presents for assessment of chronic neck and right shoulder pain. Cervical CT consistent with mulitlevel spondylosis, though no acute fracture seen. cervical MRI consistent with central canal stenosis and multilevel foraminal stenosis. In past 3 months, has undergone >6 weeks of physical therapy, chiropractor, home exercises, stretches, oral steroids, NSAIDs, all without benefit. Uses ibuprofen, amitriptyline, tizanidine. denies adverse med side effects. NNCP at our office due to marijuana use. Previous right C4-5 C5-6 TFESI provided >50% improvement in pain and functional ability greater than 3 months and pt would like to discuss repeating. Pain today 6-04/05 increasing with ROM of cervical spine, sleep, activity, housework, lifting. Pain improved with ice. Pt reports numbness tingling and weakness of right arm. cc:: CC: Tegan Grubbs NP Review of Systems ROS Status of ROS 10 or more systems reviewed and unremarkable except as noted in history and below [facility] Medical History (Updated 06/16/24 @ 11:44 by Garrett Arellano) Varicose veins of bilateral lower extremities with pain ?I83.813 - Varicose veins of bilateral lower extremities with pain (ICD-10) Phlebitis and thrombophlebitis of superficial vessels of right lower extremity ?I80.01 - Phlebitis and thrombophlebitis of superficial vessels of right lower extremity (ICD-10) Varicose vein of leg ?I83.90 - Asymptomatic varicose veins of unspecified lower extremity (ICD-10) Diabetes ?E11.9 - Type 2 diabetes mellitus without complications (ICD-10) PCOS (polycystic ovarian syndrome) ?E28.2 - Polycystic ovarian syndrome (ICD-10) Migraine ?G43.909 - Migraine, unspecified, not intractable, without status migrainosus (ICD-10) Hyperlipidemia ?E78.5 - Hyperlipidemia, unspecified (ICD-10) Hypothyroid ?E03.9 - Hypothyroidism, unspecified (ICD-10) HTN (hypertension) ?I10 - Essential (primary) hypertension (ICD-10) History of gastroesophageal reflux (GERD) ?Z87.19 - Personal history of other diseases of the digestive system (ICD-10) 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, unspecified (ICD-10) Depression ?F32.A - Depression, unspecified (ICD-10) Chronic sinusitis ?J32.9 - Chronic sinusitis, unspecified (ICD-10) Chronic fatigue syndrome with fibromyalgia ?G93.32 - Myalgic encephalomyelitis/chronic fatigue syndrome (ICD-10) ?M79.7 - Fibromyalgia (ICD-10) Surgical History (Updated 06/19/24 @ 11:39 by Garrett Arellano) S/P sclerotherapy of varicose veins ?Z98.890 - Other specified postprocedural states (ICD-10) ?Z86.79 - Personal history of other diseases of the circulatory system (ICD-10) Status post laser ablation of incompetent vein ?Z98.890 - Other specified postprocedural states (ICD-10) History of vein stripping ?Z98.890 - Other specified postprocedural states (ICD-10) H/O gastric sleeve ?Z90.3 - Acquired absence of stomach [part of] (ICD-10) Hx of cholecystectomy ?Z90.49 - Acquired absence of other specified parts of digestive tract (ICD-10) Meds Home Medications and Allergies Home Medications ?Medication ?Instructions ?Recorded ?Confirmed ?Type atorvastatin 10 mg tablet 10 mg PO QAM 01/11/24 02/28/24 History cetirizine 10 mg tablet 10 mg PO DAILY 01/11/24 02/28/24 History levothyroxine 50 mcg tablet 50 mcg PO QAM 01/11/24 02/28/24 History lisinopril 2.5 mg tablet 2.5 mg PO DAILY 01/11/24 02/28/24 History minocycline 100 mg capsule 100 mg PO QPM 01/11/24 02/28/24 History omeprazole 20 mg capsule,delayed 20 mg PO DAILY 01/11/24 02/28/24 History release ropinirole 0.25 mg tablet 0.25 mg PO QPM 01/11/24 02/28/24 History semaglutide 1 mg/dose (4 mg/3 mL) 1 mg subcut QWEEK 01/11/24 02/28/24 History subcutaneous pen injector (Ozempic) sertraline 100 mg tablet 200 mg PO QAM 01/11/24 02/28/24 History tizanidine 4 mg tablet 8 mg PO DAILY 01/11/24 02/28/24 History magnesium 200 mg tablet 800 mg PO DAILY 03/08/24 03/08/24 History Allergies Allergy/AdvReac Type Severity Reaction Status Date / Time No Known Drug Allergies Allergy Verified 02/28/24 09:38 Exam Constitutional Documenting provider has reviewed patient's vital signs: yes Common normals: no apparent distress, oriented x3, healthy appearing, alert and well nourished General appearance: cooperative HENMT Common normals: normocephalic, hearing grossly normal bilaterally and moist oral mucous membranes Head and scalp: normocephalic Eye Common normals: PERRL Pupil: PERRL Neck & C-Spine Common normals: full ROM General: normal visual inspection Cervical spine: cervical ROM abnormal, pain with cervical ROM and cervical spine tenderness Other: Strength 3.5/5 in RUE 5/5 in LUE positive spurlings decreased sensation right C4,5,6 Chest Common normals: inspection of chest normal Respiratory Common normals: normal respiratory effort, no retractions and no use of accessory muscles Neuro Common normals: oriented x3, CN's II-XII intact bilaterally, moves all extremities, no focal motor deficits, no sensory deficits noted and deep tendon reflexes 2+ bilaterally Sensorium/orientation: alert Motor exam: no movement abnormalities noted Psych Common normals: mental status grossly normal, thought process normal, cooperative, affect normal, speech normal and activity/motor behavior normal Speech: normal speech Thought process: normal thought process Results Additional Findings Additional findings: If on a controlled substance or opioids, I have checked an [place] report on this patient and there are no aberrancies noted in the prescribing history.??If on a controlled substance or opioid a drug screen was completed and reviewed within the last year, and if there has not been a drug screen completed we ordered one today to monitor higher risk, state monitored pain medication use. As part of providing excellent, safe, comprehensive care, the following was completed at our patient's visit: 1. A medication reconciliation and review to ensure accurate knowledge of current/active medications, including asking our patients to inform us about any [id number] medications or herbal remedies/nutritional supplements/alternative remedies. 2. A review to specifically ensure our patients have had annual screening for screening for depression, screening for tobacco use, and screening for unhealthy alcohol use. For concerning screenings had a discussion with the patient, provided patient education, and recommended follow-up with primary care provider when appropriate. If patient noted with a risk of falling, they received education on strength, gait, and balance training to prevent future risk of falling. Portions of this note may have been carried over from the previous visit and updated as appropriate. Please note this office utilizes paper charting in addition to the electronic medical record. A list of current medications, vitals, and PMH is available there as the clinical staff outside of myself do not have access to [employer] charting during the clinic day operations. As part of providing quality comprehensive care the current medications, vitals, and PMH were reviewed in the paper chart. Assessment and Plan Assessment and Plan (1) Cervical radiculopathy: Assessment and Plan: The patient has had over 3 months of moderate to severe neck and right arm pain with functional impairment and inadequate response to conservative care including NSAIDS (unless there are contraindication such as concurrent blood thinners), multiple oral or topical pain medications, and home exercise program/physical therapy.? Patient has completed >6 weeks of guided home exercise program and/or formal physical therapy program without relief of their symptoms.? I have reviewed the imaging of the cervical spine and no red flags were identified.? The imaging reveals radiographic findings consistent with cervical radiculopathy The Oswestry Disability Index was completed, and the patient scored a 58%.? The patient noted the following:?? moderate to severe pain impacting ADLs, sleep, social life, travel We discussed the risks and benefits of the procedure with the patient, and we are NOT planning on using sedation as outlined in the guidelines from Medicare unless there is a documented reason that sedation would be strongly recommended.?? ?The procedure will be completed with fluoroscopic guidance.? (2) Cervical stenosis of spinal canal: Plan repeat right C4-5 C5-6 TFESI under fluoroscopy, risks vs benefits reviewed if pt unable to get her TFESI done prior to her trip on 12/08 we will prescribe medrol dose pack as discussed continue other medications as directed by ordering providers continue care with specialist for FM continue massage therapy and HEP as tolerated f/u 2 weeks after TFESI
== END 2024-11-29 11:07 | disposition home or self-care (01) ==
LOC: PM 11:06
PROVIDERS: PCP Nurse Practitioner; Visit Provider Nurse Practitioner
DX: M54.12 Radiculopathy, cervical region (principal); M48.02 Spinal stenosis, cervical region
CPT/HCPCS: G0463

== ENCOUNTER 2024-12-04 10:41 | Day surgery (SDC) | payer BC, MEDICAID, SELFPAY ==
--- OUTSIDE RECORDS SUMMARY | 2024-12-04 10:52 | XMS_ITS | CCD ---
Author Organization [facility] Care Team Providers Care Retail Support Specialist Name Role Phone Kaylie Echeverria Unavailable Mona Morin Unavailable NO FAMILY, PHYSICIAN Primary Care Provider Unava ilCHRISTIANO Lazaro Attending Provider [phone] SHANE, MONA Primary Care Unavailable MISC, DR ELIAS Attending Unavailable MISC, DR ELIAS Admitting Unavailable AICHHOLZ, TRANSPORT CONDUCTOR HALIMA Consulting Unavailable SHANE, MONA Consulting Unavailable SHANE, MONA Primary Care Unavailable SHANE, MOAN Admitting Unavailable SHANE, MONA Attending Unavailable SHANE, MONA Primary Care Unavailable SHANE, MONA Admitting Unavailable SHANE, MONA Attending Unavailable SHANE, MONA Consulting Unavailable Priyanka Jones Unavailable Elyssa MCBRIDE, Montana Mosqueda Attending Unavailable Elyssa MCBRIDE, Montana Mosqueda Attending Unavailable Aichholz STORES ASSISTANT, Halima Unavailable Javier West MD Primary Care Provider Aichholz STORES ASSISTANT, Halima Unavailable LESTER VERDUGO Attending Unavailable SHANE, MONA Referring Unavailable SHANE, MONA Primary Care Unavailable Aichholz STORES ASSISTANT, Halima Unavailable Christine Zimmerman DO Unavailable Aichholz STORES ASSISTANT, Halima Unavailable CHRISTINE ZIMMERMAN Attending Unavailable AICHHOLZ, HALIMA Attending Unavailable NICOLE GUZMAN Attending Unavailable AICHHOLZHALIMA Attending Unavailable AICHHOLShannan HALIMA Attending Unavailable AICHHOLZ, HALIMA Attending Unavailable NICOLE GUZMAN Attending Unavailable HALIMA MONCADA Attending Unavailable NICOLE GUZMAN Attending Unavailable NICOLE GUZMAN Referring Unavailable TD BERUMEN Attending Unavailable MONA MORIN Referring Unavailable MONA MORIN Primary Care Unavailable TD BERUMEN Attending Unavailable MONA MORIN Referring Unavailable MONA MORIN Primary Care Unavailable Shane ASSEMBLY DEPARTMENT SUPERVISOR-CRYSTAL GROWER, Mona Primary Care Provide r Allergies Allergy Classification Reported Allergen(s) Allergy Type Date of Onset Reaction(s) Facility (5 sources) Cephalexin Drug Allergy rash [facility] Other (12 sources) Cephalexin Drug Allergy rash [facility] Other (1 source) Sulfamethoxazole / Trimethoprim Drug Allergy 3 [facility] Medications Current Medications Medication Drug Class(es) Dates Sig (Normalized) Sig (Original) [id number] 200 actuat albuterol 0.09 mg/actuat metered dose [...] (Therapy completed) biotin 1 mg oral capsule (20 sources) biotin 1 MG capsule Take by mouth Active brexpiprazole 0.5 mg oral tablet (6 sources) Atypical Antipsychotic Start: 04-12-2024 take 1 [...] oral solution (2 sources) alpha-Adrenergic Agonist, Uncompetitive Z-nwqdso-G-aspartate Receptor Antagonist, Sigma-1 Agonist Start: 08-31-2021 take 10 mL by mouth every six hours Snnmfkorx-Qtsqhidl-OE 30-2-10 MG/5ML 10 mL Orally every 6 hours for 5 days Aug, Active Budesonide / formoterol (3 sources) Corticosteroid, beta2-Adrenergic Agonist budesonide-formotero l (SYMBICORT) 160-4.5 mcg/actuation inhaler Inhale 2 puffs as needed. Active budesonide-formo terol (SYMBICORT) 160-4.5 mcg/actuation inhaler Inhale 2 puffs as needed. 0 Active calcium citrate/vitamin D3 (CALCIUM CITRATE + D ORAL) (3 sources) take 1500 ug by mouth three [...] Activ e gabapentin 300 mg oral capsule (16 sources) Anti-epileptic Agent Start: 05-26-2023 End: 05-25-2024 [...] Active hydrOXYzine hydrochloride 25 mg oral tablet (4 sources) Antihistamine Start: 04-12-2024 End: 05-25-2024 take [...] mg) by mouth Daily 30 tablet 5 07/25/2024 07/25/2024 Discontinued (Side effects) Start: 03-26-2022 take 1 tablet by alexandria [...] sources) Proton Pump Inhibitor Start: 07-02-2020 End: 12-21-2024 take 1 capsule by mouth before mealtime omeprazole (PriLOSEC) [address] capsule Indications: Gastroesophageal reflux disease without esophagitis Take 1 capsule (20 mg) by mouth in the morning. Take before meals. 30 capsule 2 11/21/2024 12/21/2024 Active ondansetron 4 mg oral tablet (20 sources) Serotonin-3 Receptor Antagonist Start: 02-03-2024 ondansetron (Zofran) 4 MG tablet Indications: Migraine without aura and without status migrainosus, not intractable (CMS/HCC) 1 every 8 hours for migraine associated nausea and vomiting 20 tablet 02/03/2024 Active One Touch Glucometer (17 sources) One Touch Glucom eter SQ use 3 times daily for 30 days Active OZEMPIC 1 mg/dose (4 mg/3 mL) pen injector (3 sources) inject 1 mL by subcu taneous [...] (one) time per week 1 each 02/23/2024 06/28/2024 Discontinued (Reorder) Start: 02-23-2024 inject 1 mg by subcu taneous injection every week semaglutide (Ozempic, 1 MG/DOSE,) 4 MG/3ML solution pen-injector Indications: Type 2 diabetes mellitus without complication, without long-term current use of insulin (CMS/HCC) Inject 1 mg under the skin 1 (one) time per week 1 each 5 02/23/2024 Active sertraline 100 mg oral tablet [...] mouth once daily at bedtime. 30 tablet 05/26/2023 07/24/2024 Discontinued (Reorder) Start: 09-29-2021 take 1 tablet by alexandria th every eight hours Zanaflex Active triamcinolone acetonide [...] Translations: [Atopic dermatitis, unspecified] Chronic Anxiety disorders (15 sources) Generalized anxiety disorder; Translations: [Generalized anxiety disorder] Onset: 06-04-2017 Chronic Asthma (20 sources) Exacerbation of asthma; Translations: [Unspecified asthma with (acute) exacerbation] Onset: 01-11-2018 01-11-2018 Chronic Attention-deficit, conduct, and disruptive behavior disorders (1 source) Attention-deficit hyperactivity disorder, combined type; Translations: [Attention-deficit hyperactivity disorder, combined type] Onset: 06-04-2017 Chronic Attention-deficit, conduct, and disruptive behavior disorders (3 sources) Attention deficit hyperactivity disorder, combined type; [...] 09-10-2023 06-28-2024 Chronic Disorders of lipid metabolism (20 sources) Hyperlipidemia; Translations: [Hyperlipidemia, unspecified] Onset: 09-10-2023 [...] unspecified] Onset: 09-10-2023 09-10-2023 Chronic Menstrual disorders (20 sources) Amenorrhea; Translations: [Amenorrhea, unspecified] Onset: 05-25-2024 05-25-2024 Chronic Miscellaneous mental health disorders (20 sources) Primary insomnia; Translations: [Primary insomnia] Onset: 02-02-2024 02-02-2024 Chronic Mood disorders (20 sources) Depressive disorder; Translations: [Depression] Onset: 06-04-2017 09-10-2023 Chronic Nutritional deficiencies (17 sources) Vitamin D deficiency; Translations: [Vitamin D deficiency, unspecified] Chronic Other congenital anomalies (20 sources) Jen-Danlos syndrome; 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, unspecified] [...] syndrome; Translations: [Polycystic ovarian syndrome] Onset: 04-14-2016 09-10-2023 Chronic Other hereditary and degenerative nervous system conditions (20 sources) Restless legs; Translations: [Restless legs syndrome] Onset: 02-02-2024 02-02-2024 Chronic Other nervous system disorders (20 sources) Carpal tunnel syndrome; Translations: [Carpal tunnel syndrome, unspecified upper limb] Onset: 06-11-2015 02-02-2024 Chronic Other nervous system disorders (6 sources) Disturbance in speech; Translations: [Unspecified speech [...] apnea (adult) (pediatric)] Onset: 08-23-2017 Resolved: 10-20-2018 02-02-2024 Chronic Residual codes; unclassified (8 sources) Transient alteration of awareness; Translations: [Transient alteration of awareness] 09-14-2024 Episodic Thyroid disorders (20 sources) Hypothyroidism, unspecified; Translations: [Hypothyroidism] Onset: 01-11-2018 09-10-2023 Chronic Past or Other Problems Problem Classification Problem Date Documented Date Episodic/Chronic Conditions associated with dizziness or vertigo (20 sources) Dizziness and giddiness; Translations: [Dizziness and giddiness] Onset: 05-25-2024 05-25-2024 Episodic Diabetes mellitus with complications (3 sources) Type 2 diabetes mellitus in obese; Translations: [Type 2 diabetes mellitus with other specified complication] Onset: 08-23-2017 Resolved: 02-01-2018 02-01-2018 Chronic Diabetes or abnormal glucose tolerance complicating ; childbirth; or the puerperium (3 sources) History of gestational diabetes mellitus; Translations: [Personal history of gestational diabetes] Onset: 04-14-2016 01-11-2018 Episodic Immunizations and screening for infectious disease (1 source) Contact with and (suspected) exposure to other viral communicable diseases Onset: 08-31-2021 Resolved: 08-31-2021 Episodic Malaise and fatigue (4 sources) Other fatigue; Translations: [Fatigue] Onset: 08-23-2017 08-23-2017 Episodic Nausea and vomiting (20 sources) Nausea and vomiting; Translations: [Nausea with vomiting, unspecified] Onset: 02-21-2015 02-02-2024 Episodic Other connective tissue disease (20 sources) Fibromyalgia; Translations: [Fibromyalgia] Onset: 09-10-2023 09-10-2023 Episodic Other connective tissue disease (20 sources) Pain in limb; Translations: [Pain in unspecified limb] Onset: 05-07-2015 02-02-2024 Episodic Other connective tissue disease (20 sources) Spasm; Translations: [Other muscle spasm] Onset: 11-19-2016 02-02-2024 Episodic Other nervous system disorders (20 sources) Skin sensation disturbance; Translations: [Unspecified disturbances of skin sensation] Onset: 05-07-2015 02-02-2024 Episodic Other non-traumatic joint disorders (1 source) Pain in right hip Onset: 04-02-2022 Resolved: 04-02-2022 Episodic Other nutritional; endocrine; and metabolic disorders (20 sources) Obese class II; Translations: [Body mass index (BMI) 35.0-35.9, adult] Onset: 08-23-2017 Resolved: 10-20-2018 10-20-2018 Chronic Other nutritional; endocrine; and metabolic disorders (20 sources) Obesity; Translations: [Obesity, unspecified] Onset: 09-13-2023 Resolved: 02-07-2024 02-07-2024 Chronic Other nutritional; endocrine; and metabolic disorders (3 sources) Morbid obesity; Translations: [Morbid (severe) obesity [...] Resolved: 07-25-2024 02-02-2024 Episodic Residual codes; unclassified (20 sources) Disturbance in sleep behavior; Translations: [Sleep disorder, unspecified] Onset: 03-19-2014 Resolved: 05-25-2024 05-25-2024 Episodic Spondylosis; intervertebral disc disorders; other back problems (20 sources) Sacrococcygeal disorders, not elsewhere classified; Translations: [Cervical radiculopathy] Onset: 11-19-2016 Resolved: 05-25-2024 Episodic Sprains and strains (20 sources) Strain of right trapezius muscle; Translations: [Strain of other muscles, fascia and tendons at shoulder and upper arm level, right arm, initial encounter] Onset: 01-11-2024 Resolved: 05-25-2024 05-25-2024 Episodic Varicose veins of lower extremity (20 sources) Varicose veins of lower limb co-occurrent with edema; Translations: [Varicose veins of bilateral lower extremities with other complications] Onset: 09-13-2023 09-13-2023 Episodic Viral infection (20 sources) Herpes zoster without complication; Translations: [Zoster without complications] Onset: 02-07-2024 02-07-2024 Episodic Results Test Name Value Interpretation Reference Range Facility MR HEAD/BRAIN WO CONon [address] [place] [address] Magnetic Resonance Report Signed Patient: TATIANA SEPULVEDA MR#: [id number] : 1975 Acct:[id number] Age/Sex: 48 / F ADM Date: 10/27/24 Loc: MRI Attending Dr: Christine Zimmerman D.O. Ordering Physician: Christine Zimmerman D.O. Date of Service: 10/27/24 Procedure(s): MR head/brain wo con Accession Number(s): [id number] cc: Halima Moncada STORES ASSISTANT; Christine Zimmerman D.O. [place] [id number] Patient Name: TATIANA SEPULVEDA MRN: [facility]:[id number] date: 1975 Sex: F Assigned Patient Location: MRI Current Patient Location: MRI Accession/Order Number: [id number] Exam Date: 10/27/2024 08:53 Report Date: 10/27/2024 17:39 At the request of: CHRISTINE ZIMMERMAN Procedure: MR head/brain wo con EXAM: MR head/brain wo con HISTORY: Speech Disturbance, Transient Alteration Of Awareness COMPARISON: None. TECHNIQUE: Sagittal T1-weighted and axial T2-weighted, turboFLAIR and diffusion-weighted with ADC map images of the brain were obtained without intravenous contrast. Findings: These images reveal no intracranial mass lesion, mass effect, midline shift or abnormal extraaxial fluid collection. The ventricles and sulci are normal for age. No abnormality of reduced diffusion. Normal intravascular flow voids. There is a few, punctate foci of high signal intensity on T2/FLAIR in the subcortical and periventricular white matter, as seen in the left frontal lobe, axial image 17, the left frontal lobe, axial image 16, and the right frontal lobe, axial image 18. MR/MR head/brain wo con Impression: No acute intracranial pathology. Few, punctate foci of high signal intensity in the white matter, as above, favoring sequelae of chronic small vessel ischemic disease. Electronically authenticated by: ILANA LE Date: 10/27/2024 17:39 Dictated By: Ilana Le M.D. Signed By: 10/27/24 1742 DD/ 1739 TD/TT: Drosser: [facility] Radiology, Radiologist, MD - 10/27/2024 [place] [address] Magnetic Resonance Report Signed Patient: TATIANA SEPULVEDA MR#: [id number] : 1975 Acct:[id number] Age/Sex: 48 / F ADM Date: 10/27/24 Loc: MRI Attending Dr: Christine Zimmerman D.O. Ordering Physician: Christine Zimmerman D.O. Date of Service: 10/27/24 Procedure(s): MR head/brain wo con Accession Number(s): [id number] cc: Halima Moncada STORES ASSISTANT; Christine Zimmerman D.O. The [address] [address] Patient Name: TATIANA SEPULVEDA MRN: [facility]:[id number] date: 1975 Sex: F Assigned Patient Location: MRI Current Patient Location: MRI Accession/Order Number: [id number] Exam Date: 10/27/2024 08:53 Report Date: 10/27/2024 17:39 At the request of: CHRISTINE ZIMMERMAN Procedure: MR head/brain wo con EXAM: MR head/brain wo con HISTORY: Speech Disturbance, Transient Alteration Of Awareness COMPARISON: None. TECHNIQUE: Sagittal T1-weighted and axial T2-weighted, turboFLAIR and diffusion-weighted with ADC map images of the brain were obtained without intravenous contrast. Findings: These images reveal no intracranial mass lesion, mass effect, midline shift or abnormal extraaxial fluid collection. The ventricles and sulci are normal for age. No abnormality of reduced diffusion. Normal intravascular flow voids. There is a few, punctate foci of high signal intensity on T2/FLAIR in the subcortical and periventricular white matter, as seen in the left frontal lobe, axial image 17, the left frontal lobe, axial image 16, and the right frontal lobe, axial image 18. MR/MR head/brain wo con Impression: No acute intracranial pathology. Few, punctate foci of high signal intensity in the white matter, as above, favoring sequelae of chronic small vessel ischemic disease. Electronically authenticated by: ILANA LE Date: 10/27/2024 17:39 Dictated By: Ilana Le M.D. Signed By: 10/27/241741 DD/ 38 TD/TT: Drosser: [facility] mAPPn Radiology Study observation (narrative) [facility] MR HEAD/BRAIN WO CONOrdered By: Radiologist Radiology on 10-27-2024 [facility] PDV Work Phone: MLR HEMOGLOBIN A1Con 11-12-2 024 Glucose [Mass/Vol] 111 mg/dL [facility] HbA1c (Bld) [Mass fraction] 5.5 % 4.5 - 6.2 % [facility] Comment on above: ADA RECOMMENDED LIMI T 4.0 - 6.0 ADA THERAPEUTIC TARGET < 7.0 ACTION SUGGESTED > 7.0 [facility] seedtag e IGP,APTIMA HPV,AGE GDLNon AGE GDLN ACOG TESTING Note . [facility] mAPPn Comment on above: TESTS RESULT FLAG UN ITS REF RANGE LAB Clinician Provided Cytology Information Source.............Cervix;Endocervix No. of containers..01 ThinPrep Vial Age Vida LUO Prudence... 31 FLAG LEGEND: L-Low Normal,H-High Normal,LL-Alert Low,HH-Alert High <-Panic Low,>-Panic High,A-Abnormal,AA-Critical Abnormal Performed at: 01 =[address] [address] Maren Peña MD, HPV APTIMA Negative Negative [facility] e Comment on above: This nucleic acid am plification test detects fourteen high- risk HPV types (16,18,31,33,35,39,45,51,52,56,58,59,66,68) without differentiation. Performed at: =[address] [id number] Line Crewman: Maren Peña MD, Phone: [phone] Performed at: - [address] [id number] Line Crewman: Maren Peña MD, Phone: [phone] IGP, APTIMA HPV, RFX 16/18,45 Note . [facility] Comment on above: TESTS RESULT FLAG UN ITS REF RANGE LAB DIAGNOSIS: 02 NEGATIVE FOR INTRAEPITHELIAL LESION OR MALIGNANCY. Specimen adequacy: 02 Satisfactory for evaluation. Endocervical and/or squamous metaplastic cells (endocervical component) are present. Performed by: 02 Katie Hernandez, Dye Line Operator ([facility]) . 02 Note: Note 02 The Pap [...] <-Panic Low,>-Panic High,A-Abnormal,AA-Critical Abnormal Performed at: [address] [facility] [place] [address] Maren Peña MD, CERVIX ENDOCERVIX [facility] seed[facility] e ALL THYROID STIM HORMONEon 0 05-26-2024 TSH Qn 3.022 m[IU]/L [facility] No Panel Informationon 05-26 [facility] PREG QUANT HCGon 05-26- 024 HCG QUANTITATIVE <1 mIU/mL [facility]are Comment on above: 5-50 0.2-1 WEEK 50-500 1-2 WEEKS 100-5,000 2-3 WEEKS 500-10,000 3-4 WEEKS 1,000-50,000 4-5 WEEKS 10,000-100,000 5-6 WEEKS 15,000-200,000 6-8 WEEKS 10,000-100,000 2-3 MONTHS Quick Strepon 05-03-2023 S. pyogenes Org specific cx Ql (Throat) Negative [facility] Other Quick Strep [facility] Other INSULINon 01-26-2023 Insulin 21.3 uIU/mL Normal 2.6-24.9 [facility] Comment on above: Performed By: #### I NSULIN #### [facility] [address] [place] [address] Dr. Yvan Manzano CORTISOLon 01-23-2023 Cortisol 11.2 ug/dL Normal 6.2-19.4 [facility] Comment on above: Result Comment: [place] Note: The reference interval and flagging for this test is for an AM collection. If this is a PM collection please use: Cortisol PM: 2.3-11.9 [facility] also offers: 366240: Cortisol- AM 939208: Cortisol- PM Performed By: #### C BC #### [facility] [address] [place] [address] Dr. Yvan Manzano CBC AUTO DIFFon 01-22-2023 BASO # 0.1 103/ul Normal 0.0-0.1 [facility] Comment on above: Performed By: #### C BC #### [facility] [address] [place] [address] Dr. Yvan Manzano Basophils/100 WBC (Bld) 0.9 % Normal 0.2-2.0 [facility] Comment on above: Performed By: #### C BC #### [facility] [address] [place] [address] Dr. Yvan Manzano EO # 0.3 103/ul Normal 0.0-0.7 [facility] Comment on above: Performed By: #### C BC #### [facility] [address] [place] [address] Dr. Yvan Manzano Eosinophils/100 WBC (Bld) 5.7 % Normal 0.9-7.0 [facility] Comment on above: Performed By: #### C BC #### [facility] [address] [address] [address] Yvan Manzano Erythrocyte distribution width (RBC) [Ratio] 14.6 % Normal 11.0-15.0 [facility] Comment on above: Performed By: #### C BC #### [facility] [address] [place] [address] Dr. Yvan Manzano Hematocrit (Bld) [Volume fraction] 36.8 % Normal 36.0-48.0 [facility] Comment on above: Performed By: #### C BC #### [facility] [address] [place] [address] Dr. Yvan Manzano Hemoglobin (Bld) [Mass/Vol] 11.4 g/dL Critically low 12.0-16.0 [facility] Comment on above: Performed By: #### C BC #### [facility] [address] [place] [address] Dr. Yvan Manzano IG # 0.02 10e3/ul Normal 0.00-0.03 [facility] Comment on above: Performed By: #### C BC #### [facility] [address] [place] [address] Dr. Yvan Manzano IG % 0.3 % Normal 0.0-0.5 [facility] Comment on above: Performed By: #### C BC #### [facility] [address] [place] [address] Dr. Yvan Manzano LYMPH # 1.5 103/ul Normal 1.2-3.8 [facility] Comment on above: Performed By: #### C BC #### [facility] [address] [place] [address] Dr. Yvan Manzano Lymphocytes/100 WBC (Bld) 25.3 % Normal 20.5-60.0 [facility] Comment on above: Performed By: #### C BC #### [facility] [address] [place] [address] Dr. Yvan Manzano MANUAL DIFF REQ NO Normal [facility] Comment on above: Performed By: #### C BC #### [facility] [address] [place] [address] Dr. Yvan Manzano MCH (RBC) [Entitic mass] 25.2 pg Critically low 26.7-34.0 [facility] Comment on above: Performed By: #### C BC #### [facility] [address] [place] [address] Dr. Yvan Manzano MCHC (RBC) [Mass/Vol] 31.0 g/dL Normal 29.9-35.2 [facility] Comment on above: Performed By: #### C BC #### [facility] [address] [place] [address] Dr. Yvan Manzano MCV (RBC) [Entitic vol] 81.4 fL Normal 81.0-99.0 [facility] Comment on above: Performed By: #### C BC #### [facility] [address] [place] [address] Dr. Yvan Manzano MONO # 0.4 103/ul Normal 0.3-0.8 [facility] Comment on above: Performed By: #### C BC #### [facility] [address] [place] [address] Dr. Yvan Manzano Monocytes/100 WBC (Bld) 7.7 % Normal 1.7-12.0 [facility] Comment on above: Performed By: #### C BC #### [facility] [address] [place] [address] Dr. Yvan Manzano NEUT # 3.5 103/ul Normal 1.4-6.5 [facility] Comment on above: Performed By: #### C BC #### [facility] [address] [place] [address] Dr. Yvan Manzano Neutrophils/100 WBC (Bld) 60.1 % Normal 43.0-75.0 [facility] Comment on above: Performed By: #### C BC #### [facility] [address] [place] [address] Dr. Yvan Manzano Platelet mean volume (Bld) [Entitic vol] 8.8 fL Critically low 9.5-13.5 [facility] Comment on above: Performed By: #### C BC #### [facility] [address] [place] [address] Dr. Yvan Manzano PLT 347 103/ul Normal 150-450 [facility] Comment on above: Performed By: #### C BC #### [facility] [address] [place] [address] Dr. Yvan Manzano RBC 4.52 106/ul Normal 4.20-5.40 [facility] Comment on above: Performed By: #### C BC #### [facility] [address] [place] [address] Dr. Yvan Manzano WBC 5.7 103/ul Normal 4.0-11.0 [facility] Comment on above: Performed By: #### C BC #### [facility] [address] [place] [address] Dr. Yvan Manzano FREE T4on 01-22-2023 Free T4 [Mass/Vol] 0.84 ng/dL Normal 0.76-1.46 [facility] Comment on above: Performed By: #### F T4 #### [facility] [address] [place] [address] Dr. Yvan Manzano LIPID PROFILEon 01-22-2023 CHOL-HDL RATIO NORM SEE BELOW Normal [facility] Comment on above: Result Comment: 3.3 - 4.4 LOW RISK 4.4 - 7.1 AVERAGE RISK 7.1 - 11.0 MODERATE RISK >11.0 HIGH RISK Performed By: #### T SH, LIPID #### [facility] [address] [place] [address] Dr. Yvan Manzano Cholesterol [Mass/Vol] 264 mg/dL Critically high <=200 [facility] Comment on above: Performed By: #### T SH, LIPID #### [facility] [address] [place] [address] Dr. Yvan Manzano Cholesterol in HDL [Mass/Vol] 52 mg/dL Normal 40-60 [facility] Comment on above: Performed By: #### T SH, LIPID #### [facility] [facility] [address] [place] [address] Dr. Yvan Maznano Cholesterol in LDL [Mass/Vol] 173.6 mg/dL Normal [facility] Comment on above: Performed By: #### T SH, LIPID #### [facility] [address] [address] [address] Yvan Manzano Cholesterol.total/Ch olesterol in HDL [Mass ratio] 5.1 {ratio} Normal [facility] Comment on above: Performed By: #### T SH, LIPID #### [facility] [address] [place] [address] Dr. Yvan Manzano HDL NORMAL > or = 60 mg/dl - LOW CARDIOVASCULAR RISK <40 mg/dl - HIGH CARDIOVASCULAR RISK Normal [facility] Comment on above: Performed By: #### T SH, LIPID #### [facility] [address] [place] [address] Dr. Yvan Manzano LDL CALC NORMAL SEE BELOW Normal [facility] Comment on above: Result Comment: <100 mg/dl OPTIMAL 100 - 129 mg/dl NEAR OR ABOVE OPTIMAL 130 - 159 mg/dl BORDERLINE HIGH 160 - 189 mg/dl HIGH >190 mg/dl VERY HIGH Performed By: #### T SH, LIPID #### [facility] [address] [place] [address] Dr. Yvan Manzano Triglyceride [Mass/Vol] 192 mg/dL Critically high <=150 [facility] Comment on above: Performed By: #### T SH, LIPID #### [facility] [address] [place] [address] Dr. Yvan Manzano VLDL CALC 38.4 mg/dL Normal [facility] Comment on above: Performed By: #### T SH, LIPID #### [facility] [address] [place] [address] Dr. Yvan Manzano TSHon 01-22-2023 TSH 5.749 uIU/mL Critically high 0.358-3.740 [facility] Comment on above: Performed By: #### T SH, LIPID #### [facility] [address] [place] [address] Dr. Yvan Manzano GLYCOHEMOGLOBIN A1Con 2022 ADA RECOMMENDATION SEE BELOW Normal [facility] Comment on above: Result Comment: ADA RECOMMENDED LIMIT 4.0 - 6.0 ADA THERAPEUTIC TARGET < 7.0 ACTION SUGGESTED > 7.0 Performed By: #### A 1C #### [facility] [address] [place] [address] Dr. Yvan Manzano Glucose [Mass/Vol] 137 mg/dL Normal [facility] Comment on above: Performed By: #### A 1C #### [facility] [address] [place] [address] Dr. Yvan Manzano HbA1c (Bld) [Mass fraction] 6.4 % Critically high 4.5-6.2 [facility] Comment on above: Performed By: #### A 1C #### [facility] [address] [place] [address] Dr. Yvan Manzano PROF 14(COMP METB)on 023 Albumin [Mass/Vol] 3.4 g/dL Normal 3.4-5.0 [facility] Comment on above: Performed By: #### C MP #### [facility] [address] [place] [address] Dr. Yvan Manzano Albumin/Globulin [Mass ratio] 0.9 {ratio} Normal [facility] Comment on above: Performed By: #### C MP #### [facility] [address] [place] [address] Dr. Yvan Manzano ALP [Catalytic activity/Vol] 74 U/L Normal 46-116 [facility] Comment on above: Performed By: #### C MP #### [facility] [address] [place] [address] Dr. Yvan Manzano ALT [Catalytic activity/Vol] 25 U/L Normal 14-59 [facility] Comment on above: Performed By: #### C MP #### [facility] [address] [place] [address] Dr. Yvan Manzano Anion gap [Moles/Vol] 9.4 mmol/L Normal [facility] Comment on above: Performed By: #### C MP #### [facility] [address] [place] [address] Dr. Yvan Manzano AST [Catalytic activity/Vol] 17 U/L Normal 15-37 [facility] Comment on above: Performed By: #### C MP #### [facility] [address] [address] [address] Yvan Manzano Bilirubin [Mass/Vol] 0.1 mg/dL Critically low 0.2-1.0 [facility] Comment on above: Performed By: #### C MP #### [facility] [address] [address] [address] Yvan Manzano Calcium [Mass/Vol] 9.2 mg/dL Normal 8.5-10.1 [facility] Comment on above: Performed By: #### C MP #### [facility] [address] [address] [address] Yvan Manzano Chloride [Moles/Vol] 101 mmol/L Normal 98-107 [facility] Comment on above: Performed By: #### C MP #### [facility] [address] [address] [address] Yvan Manzano CO2 [Moles/Vol] 30.4 mmol/L Normal 21.0-32.0 [facility] Comment on above: Performed By: #### C MP #### [facility] [address] [address] [address] Yvan Manzano Creatinine [Mass/Vol] 0.71 mg/dL Normal 0.55-1.02 [facility] Comment on above: Performed By: #### C MP #### [facility] [address] [address] [address] Yvan Manzano EGFR-AF MOZAMBICAN >60 Normal >=60 [facility] Comment on above: Performed By: #### C MP #### [facility] [address] [address] [address] Yvan Manzano EGFR-NON AF MOZAMBICAN >60 Normal >=60 [facility] Comment on above: Performed By: #### C MP #### [facility] [address] [address] [address] Yvan Manzano Globulin (S) [Mass/Vol] 4.0 g/dL Normal [facility] Comment on above: Performed By: #### C MP #### [facility] [address] [address] [address] Yvan Manzano Glucose [Mass/Vol] 138 mg/dL Critically high 74-106 [facility] Comment on above: Performed By: #### C MP #### [facility] [address] [address] [address] Yvan Manzano Potassium [Moles/Vol] 3.8 mmol/L Normal 3.5-5.1 [facility] Comment on above: Performed By: #### C MP #### [facility] [address] [address] [address] Yvan Manzano Protein [Mass/Vol] 7.4 g/dL Normal 6.4-8.2 [facility] Comment on above: Performed By: #### C MP #### [facility] [address] [address] [address] Yvan Manzano Sodium [Moles/Vol] 137 mmol/L Normal 136-145 [facility] Comment on above: Performed By: #### C MP #### [facility] [address] [address] [address] Yvan Manzano Urea nitrogen [Mass/Vol] 13.0 mg/dL Normal 7.0-18.0 [facility] Comment on above: Performed By: #### C MP #### [facility] [address] [address] [address] Yvan Manzano Urea nitrogen/Creatinine [Mass ratio] 18.3 mg/mg Normal [facility] Comment on above: Performed By: #### C MP #### [facility] [address] [address] [address] Yvan Manzano LIPID PROFILEon 03-31-2022 CHOL-HDL RATIO NORM SEE BELOW Normal [facility] Comment on above: Result Comment: 3.3 - 4.4 LOW RISK 4.4 - 7.1 AVERAGE RISK 7.1 - 11.0 MODERATE RISK >11.0 HIGH RISK Performed By: #### C MP, LIPID #### [facility] [address] [address] [address] Yvan Manzano Cholesterol [Mass/Vol] 229 mg/dL Critically high <=200 [facility] Comment on above: Performed By: #### C MP, LIPID #### [facility] [address] [address] [address] Yvan Manzano Cholesterol in HDL [Mass/Vol] 51 mg/dL Normal 40-60 [facility] Comment on above: Performed By: #### C MP, LIPID #### [facility] [address] [address] [address] Yvan Manzano Cholesterol in LDL [Mass/Vol] 150.4 mg/dL Normal [facility] Comment on above: Performed By: #### C MP, LIPID #### [facility] [address] [address] [address] Yvan Manzano Cholesterol.total/Ch olesterol in HDL [Mass ratio] 4.5 {ratio} Normal [facility] Comment on above: Performed By: #### C MP, LIPID #### [facility] [address] [place] [address] Dr. Yvan Manzano HDL NORMAL > or = 60 mg/dl - LOW CARDIOVASCULAR RISK <40 mg/dl - HIGH CARDIOVASCULAR RISK Normal [facility] Comment on above: Performed By: #### C MP, LIPID #### [facility] [address] [place] [address] Dr. Yvan Manzano LDL CALC NORMAL SEE BELOW Normal [facility] Comment on above: Result Comment: <100 mg/dl OPTIMAL 100 - 129 mg/dl NEAR OR ABOVE OPTIMAL 130 - 159 mg/dl BORDERLINE HIGH 160 - 189 mg/dl HIGH >190 mg/dl VERY HIGH Performed By: #### C MP, LIPID #### [facility] [address] [place] [address] Dr. Yvan Manzano Triglyceride [Mass/Vol] 138 mg/dL Normal <=150 [facility] Comment on above: Performed By: #### C MP, LIPID #### [facility] [address] [place] [address] Dr. Yvan Manzano VLDL CALC 27.6 mg/dL Normal [facility] Comment on above: Performed By: #### C MP, LIPID #### [facility] [address] [place] [address] Dr. Yvan Manzano MICROALB CREAT RATIO RANDOMo n 03-31-2022 mALB 1.4 mg/L Normal <=30.0 [facility] Comment on above: Performed By: #### M CRR #### [facility] [address] [address] [address] Yvan Manzano MALB CR RATIO 6.0 mg/g Normal 0.0-29.9 [facility] Comment on above: Performed By: #### M CRR #### [facility] [address] [address] [address] Yvan Manzano MALB CR RATIO RANGE SEE BELOW Normal [facility] Comment on above: Result Comment: NO M ICROALBUMINURIA 0-29 MG/G CLINICAL MICROALBUMINURIA 30-300 MG/G MACROALBUMINURIA >300 MG/G Performed By: #### M CRR #### [facility] [address] [address] [address] Yvan Manzano URINE CREAT 232.88 mg/dL Normal 20.00-300.00 [facility] Comment on above: Performed By: #### M CRR #### [facility] [address] [address] [address] Yvan Manzano PROF 14(COMP METB)on 022 Albumin [Mass/Vol] 3.6 g/dL Normal 3.4-5.0 [facility] Comment on above: Performed By: #### C MP, LIPID #### [facility] [address] [address] [address] Yvan Manzano Albumin/Globulin [Mass ratio] 0.9 {ratio} Normal [facility] Comment on above: Performed By: #### C MP, LIPID #### [facility] [address] [place] [address] Dr. Yvan Manzano ALP [Catalytic activity/Vol] 63 U/L Normal 46-116 [facility] Comment on above: Performed By: #### C MP, LIPID #### [facility] [address] [address] [address] Yvan Manzano ALT [Catalytic activity/Vol] 33 U/L Normal 14-59 [facility] Comment on above: Performed By: #### C MP, LIPID #### [facility] [address] [address] [address] Yvan Manzano Anion gap [Moles/Vol] 11.7 mmol/L Normal [facility] Comment on above: Performed By: #### C MP, LIPID #### [facility] [address] [address] [address] Yvan Manzano AST [Catalytic activity/Vol] 23 U/L Normal 15-37 [facility] Comment on above: Performed By: #### C MP, LIPID #### [facility] [address] [address] [address] Yvan Manzano Bilirubin [Mass/Vol] 0.2 mg/dL Normal 0.2-1.0 [facility] Comment on above: Performed By: #### C MP, LIPID #### [facility] [address] [place] [address] Dr. Yvan Manzano Calcium [Mass/Vol] 9.5 mg/dL Normal 8.5-10.1 [facility] Comment on above: Performed By: #### C MP, LIPID #### [facility] [address] [address] [address] Yvan Manzano Chloride [Moles/Vol] 102 mmol/L Normal 98-107 [facility] Comment on above: Performed By: #### C MP, LIPID #### [facility] [address] [address] [address] Yvan Manzano CO2 [Moles/Vol] 28.0 mmol/L Normal 21.0-32.0 [facility] Comment on above: Performed By: #### C MP, LIPID #### [facility] [address] [address] [address] Yvan Manzano Creatinine [Mass/Vol] 0.71 mg/dL Normal 0.55-1.02 [facility] Comment on above: Performed By: #### C MP, LIPID #### [facility] [address] [place] [address] Dr. Yvan Manzano EGFR-AF MOZAMBICAN >60 Normal >=60 [facility] Comment on above: Performed By: #### C MP, LIPID #### [facility] [address] [address] [address] Yvan Manzano EGFR-NON AF MOZAMBICAN >60 Normal >=60 [facility] Comment on above: Performed By: #### C MP, LIPID #### [facility] [address] [address] [address] Yvan Manzano Globulin (S) [Mass/Vol] 4.0 g/dL Normal [facility] Comment on above: Performed By: #### C MP, LIPID #### [facility] [address] [address] [address] Yvan Manzano Glucose [Mass/Vol] 87 mg/dL Normal 74-106 [facility] Comment on above: Performed By: #### C MP, LIPID #### [facility] [address] [address] [address] Yvan Manzano Potassium [Moles/Vol] 3.7 mmol/L Normal 3.5-5.1 [facility] Comment on above: Performed By: #### C MP, LIPID #### [facility] [address] [address] [address] Yvan Manzano Protein [Mass/Vol] 7.6 g/dL Normal 6.4-8.2 [facility] Comment on above: Performed By: #### C MP, LIPID #### [facility] [address] [address] [address] Yvan Manzano Sodium [Moles/Vol] 138 mmol/L Normal 136-145 [facility] Comment on above: Performed By: #### C MP, LIPID #### [facility] [address] [address] [address] Yvan Manzano Urea nitrogen [Mass/Vol] 14.0 mg/dL Normal 7.0-18.0 [facility] Comment on above: Performed By: #### C MP, LIPID #### [facility] [address] [address] [address] Yvan Manzano Urea nitrogen/Creatinine [Mass ratio] 19.7 mg/mg Normal [facility] Comment on above: Performed By: #### C MP, LIPID #### [facility] [address] [address] [address] Yvan Manzano XR hip RT min 2V(w/wo pelvis )*on 03-26-2022 XR hip RT min 2V(w/wo pelvis)* [facility] [address] [address] XRay Report Signed Patient: Tatiana Sepulveda MR#: [id number] : 1975 Acct:[id number] Age/Sex: 46 / F ADM Date: 03/26/22 [...] Michael Harper M.D.03/26/2022 3:38 PM Dictation Location: [place] [address] Transcribed By: [facility] 03/26/22 1538 Dictated By: Michael Harper DO 03/26/22 1534 Signed By: 03/26/22 1538 [facility] XR sacrum coccyx min 2Von XR sacrum coccyx min 2V [place] [id number] XRay Report Signed Patient: Tatiana Sepulveda MR#: [id number] : 1975 Acct:[id number] Age/Sex: 45 / F ADM Date: 09/29/21 Loc: XDUCLY Room: Type: REG CLI Attending Dr: Mona Shane [facility]ST[facility] GROWER-C Ordering Provider: MONA MORIN-C Date of Service: 09/29/21 XR/XR sacrum coccyx min 2V: Sacral back pain Copies to: MONA MORIN [facility] XR sacrum coccyx min 2V 09/29/2021 3:42 [...] Laron Villegas M.D.09/29/2021 4:16 PM Dictation Location: [place] [address] Transcribed By: [facility] 09/29/21 161 Dictated By: Laron Villegas II, MD 09/29/21 161 Signed By: 09/29/21 1616 [facility] COVID Quick Testingon 08-31 Result Negative [employer] Other Vital Signs Date Time Vital Sign Value Performing Clinician Facility 11-06-2024 12:48-0500 Body height 157.5 cm Christine Sanjeev DO Work Phone: [facility] 11-06-2024 12:48-0500 Body mass index (BMI) [Ratio] 33.36 kg/m2 Christine Sanjeev DO Work Phone: [facility] 11-06-2024 12:48-0500 Body weight 82.74 kg Christine Sanjeev DO Work Phone: [facility] 11-06-2024 12:48-0500 Diastolic blood pressure 78 mm[Hg] Christine Sanjeev DO Work Phone: [facility] 11-06-2024 12:48-0500 Heart rate 63 /min Christine Sanjeev DO Work Phone: [facility] 11-06-2024 12:48-0500 SaO2% (BldA) [Mass fraction] 96 % Christine Sanjeev DO Work Phone: [facility] 11-06-2024 12:48-0500 Systolic blood pressure 116 mm[Hg] Christine De Pazner DO Work Phone: [facility] 09-12-2024 09:39-0500 Body height 154.9 cm Nicole Richardsmor [employer]ISTANT Work Phone: [facility] 09-12-2024 09:39-0500 Body mass index (BMI) [Ratio] 33.63 kg/m2 Nicole Susiemor [employer] ASSISTANT Work Phone: [facility] 09-12-2024 09:39-0500 Body weight 80.74 kg Nicole Susiemor STORES ASSISTANT Work Phone: [facility] 09-12-2024 09:39-0500 Diastolic blood pressure 81 mm[Hg] Nicole Susiemor STORES ASSISTANT Work Phone: [facility] 09-12-2024 09:39-0500 Heart rate 95 /min Nicole Susiemor [employer]ORES ASSISTANT Work Phone: [facility] 09-12-2024 09:39-0500 Systolic blood pressure 128 mm[Hg] Nicole Susiemor [employer]ORES ASSISTANT Work Phone: [facility] 07-25-2024 08:49-0400 Body height 154.9 cm Halima Moncada [employer]OR[employer] ASSISTANT Work Phone: [facility] 07-25-2024 08:49-0400 Body mass index (BMI) [Ratio] 33.67 kg/m2 Halimanargis Moncada [employer]OR[employer] ASSISTANT Work Phone: [facility] 07-25-2024 08:49-0400 Body temperature 98.4 [degF] Halima Moncada [employer]OR[employer] ASSISTANT Work Phone: [facility] 07-25-2024 08:49-0400 Body weight 80.83 kg Halima Moncada [employer]OR[employer] ASSISTANT Work Phone: [facility] 07-25-2024 08:49-0400 Diastolic blood pressure 78 mm[Hg] Halima Brownsoniyashannan [employer]ORES ASSISTANT Work Phone: [facility] 07-25-2024 08:49-0400 Heart rate 101 /min Halima Brownsoniyashannan [employer]ORES ASSISTANT Work Phone: [facility] 07-25-2024 08:49-0400 Respiratory rate 18 /min Halima Brownsoniyashannan [employer]ORES ASSISTANT Work Phone: [facility] 07-25-2024 08:49-0400 SaO2% (BldA) [Mass fraction] 98 % Halima Brownsoniyaz [employer]OR[employer] ASSISTANT Work Phone: [facility] 07-25-2024 08:49-0400 Systolic blood pressure 112 mm[Hg] Halima Brownjimmy [employer]ORES ASSISTANT Work Phone: [facility] 07-24-2024 10:08-0400 Body height 154.9 cm Lester Verdugo MD Work Phone: [facility] 07-24-2024 10:08-0400 Body mass index (BMI) [Ratio] 33.65 kg/m2 Lester Verdugo MD Work Phone: [facility] 07-24-2024 10:08-0400 Body weight 80.74 kg Lester Verdugo MD Work Phone: [facility] 07-24-2024 10:08-0400 Diastolic blood pressure 84 mm[Hg] Lester Verdugo MD Work Phone: [facility] 07-24-2024 10:08-0400 Respiratory rate 18 /min Lester Verdugo MD Work Phone: [facility] 07-24-2024 10:08-0400 Systolic blood pressure 128 mm[Hg] Lester Verdugo MD Work Phone: [facility] 06-20-2024 09:34-0400 Body height 154.9 cm Nicole Guzman [employer]ORES ASSISTANT Work Phone: [facility] 06-20-2024 09:34-0400 Body mass index (BMI) [Ratio] 33.44 kg/m2 Nicole Susiemor STORES ASSISTANT Work Phone: [facility] 06-20-2024 09:34-0400 Body weight 80.29 kg Nicole Susiemor STORES ASSISTANT Work Phone: [facility] 06-20-2024 09:34-0400 Diastolic blood pressure 84 mm[Hg] Nicole Susiemor STORES ASSISTANT Work Phone: [facility] 06-20-2024 09:34-0400 Heart rate 86 /min Nicole Susiemor STORES ASSISTANT Work Phone: [facility] 06-20-2024 09:34-0400 Systolic blood pressure 128 mm[Hg] Nicole Susiemor STORES ASSISTANT Work Phone: [facility] 05-25-2024 10:35-0400 Body height 154.9 cm Halima Aichholz [employer]ORES ASSISTANT Work Phone: [facility] 05-25-2024 10:35-0400 Body mass index (BMI) [Ratio] 33.22 kg/m2 Halima Aichholz [employer]OR[employer] ASSISTANT Work Phone: [facility] 05-25-2024 10:35-0400 Body temperature 98.49 [degF] Halima Aichholz STORES ASSISTANT Work Phone: [facility] 05-25-2024 10:35-0400 Body weight 79.74 kg Halima Aichholz STORES ASSISTANT Work Phone: [facility] 05-25-2024 10:35-0400 Diastolic blood pressure 76 mm[Hg] Halima Aichholz STORES ASSISTANT Work Phone: [facility] 05-25-2024 10:35-0400 Heart rate 92 /min Halima Aichholz STORES ASSISTANT Work Phone: [facility] 05-25-2024 10:35-0400 Respiratory rate 18 /min Halima Aichholz [employer]OR[employer] ASSISTANT Work Phone: [place] [id number] 10:35-0400 SaO2% (BldA) [Mass fraction] 99 % Halima Moncada STORES ASSISTANT Work Phone: [facility] [employer]APPn 05-25-2024 10:35-0400 Systolic blood pressure 108 mm[Hg] Halima Moncada STORES ASSISTANT Work Phone: [facility] 05-03-2023 09:05-0400 Body height 157.48 cm Priyanka Jones Other [employer] Other 05-03-2023 09:05-0400 Body mass index (BMI) [Ratio] 35.02 kg/m2 Priyanka Jones Other [employer] Other 05-03-2023 09:05-0400 Body temperature 97.5 [degF] Priyanka Jones Other [employer] Other 05-03-2023 09:05-0400 Body weight 86.86 kg Priyanka Jones Other [employer] Other 05-03-2023 09:05-0400 Diastolic blood pressure 76 mm[Hg] Priyanka Jones Other [employer] Other 05-03-2023 09:05-0400 Respiratory rate 18 /min Priyanka Jones Other [employer] Other 05-03-2023 09:05-0400 SaO2% (BldA) [Mass fraction] 100 % Priyanka Jones Other [employer] Other 05-03-2023 09:05-0400 Systolic blood pressure 117 mm[Hg] Priyanka Jones Other [employer] Other 11-17-2022 11:30-0500 Body height 157.48 cm Mona Yeungault Other [employer] Other 11-17-2022 11:30-0500 Body mass index (BMI) [Ratio] 35.3 kg/m2 Mona Shane Other [employer] Other 11-17-2022 11:30-0500 Body temperature 98.7 [degF] Mona Shane Other [employer] Other 11-17-2022 11:30-0500 Body weight 87.54 kg Mona Yeungault Other [employer] Other 11-17-2022 11:30-0500 Respiratory rate 18 /min Mona Yeungault Other [employer] Other 11-17-2022 11:30-0500 SaO2% (BldA) [Mass fraction] 98 % Mona Yeungault Other [employer] Other 09-28-2022 16:30-0500 Body height 157.48 cm Mona Yeungault Other [employer] Other 09-28-2022 16:30-0500 Body mass index (BMI) [Ratio] 35.3 kg/m2 Mona Yeungault Other [employer] Other 09-28-2022 16:30-0500 Body temperature 98 [degF] Mona Yeungault Other [employer] Other 09-28-2022 16:30-0500 Body weight 87.54 kg Mona Yeungault Other [employer] Other 09-28-2022 16:30-0500 Diastolic blood pressure 79 mm[Hg] Mona Morin Other [employer] Other 09-28-2022 16:30-0500 Respiratory rate 18 /min Mona Morin Other [employer] Other 09-28-2022 16:30-0500 SaO2% (BldA) [Mass fraction] 98 % Mona Morin Other [employer] Other 09-28-2022 16:30-0500 Systolic blood pressure 130 mm[Hg] Mona Morin Other [employer] [employer] Other 07-14-2022 15:00-0400 Body height 157.48 cm Mona Morin Other [employer] Other 07-14-2022 15:00-0400 Body mass index (BMI) [Ratio] 35.66 kg/m2 Mona Morin Other [employer] Other 07-14-2022 15:00-0400 Body weight 88.45 kg Mona Morin Other [employer] Other 07-14-2022 15:00-0400 Diastolic blood pressure 89 mm[Hg] Mona Shane Other [employer] Other 07-14-2022 15:00-0400 Respiratory rate 18 /min Mona Yeungault Other [employer] Other 07-14-2022 15:00-0400 SaO2% (BldA) [Mass fraction] 98 % Mona Shane Other [employer] Other 07-14-2022 15:00-0400 Systolic blood pressure 145 mm[Hg] Mona Morin Other [employer] Other 06-30-2022 12:00-0400 Body height 157.48 cm Mona Morin Other [employer] Other 06-30-2022 12:00-0400 Body mass index (BMI) [Ratio] 35.48 kg/m2 Mona Morin Other [employer] Other 06-30-2022 12:00-0400 Body temperature 97.7 [degF] Mona Morin Other [employer] Other 06-30-2022 12:00-0400 Body weight 88 kg Mona Morin Other [employer] Other 06-30-2022 12:00-0400 Diastolic blood pressure 87 mm[Hg] Mona Morin Other [employer] Other 06-30-2022 12:00-0400 Respiratory rate 18 /min Mona Morin Other [employer] Other 06-30-2022 12:00-0400 SaO2% (BldA) [Mass fraction] 97 % Mona Morin Other [employer] Other 06-30-2022 12:00-0400 Systolic blood pressure 136 mm[Hg] Mona Yeungault Other [employer] Other 02-03-2022 11:00-0400 Body height 157.48 cm Mona Morin Other [employer] Other 02-03-2022 11:00-0400 Body mass index (BMI) [Ratio] 35.84 kg/m2 Mona Morin Other [employer] Other 02-03-2022 11:00-0400 Body temperature 98.2 [degF] Mona Morin Other [employer] Other 02-03-2022 11:00-0400 Body weight 88.91 kg Mona Morin Other [employer] Other 02-03-2022 11:00-0400 Diastolic blood pressure 96 mm[Hg] Mona Morin Other [employer] Other 02-03-2022 11:00-0400 Respiratory rate 18 /min Mona Morin Other [employer] Other 02-03-2022 11:00-0400 SaO2% (BldA) [Mass fraction] 99 % Mona Morin Other [employer] Other 02-03-2022 11:00-0400 Systolic blood pressure 157 mm[Hg] Mona Morin Other [employer] Other 08-31-2021 10:00-0500 Body height 157.48 cm Kaylie Juwan Other [employer] Other 08-31-2021 10:00-0500 Body mass index (BMI) [Ratio] 35.66 kg/m2 Kaylie Ginty Other [employer] Other 08-31-2021 10:00-0500 Body temperature 98.7 [degF] Kaylie Echeverria Other [employer] Other 08-31-2021 10:00-0500 Body weight 88.45 kg Kaylie Devoranty Other [employer] Other 08-31-2021 10:00-0500 Respiratory rate 18 /min Kaylie Devorantcecilio Other [employer] Other 08-31-2021 10:00-0500 SaO2% (BldA) [Mass fraction] 95 % Kaylie Lozoyantcecilio Other [employer] Other Encounters Encounter Date Encounter Type Care Provider Facility Start: 11-21-2024 End: 11-21-2024 Refill Halima Moncada [employer]OR[employer] ASSISTANT Work Phone: [facility] Comment on above: Gastroesophageal ref lux disease without esophagitis Start: 11-07-2024 End: 11-07-2024 ambulatory [facility] Start: 11-06-2024 End: 11-06-2024 [employer] Christine Zimmerman DO Work Phone: [facility] Start: 11-06-2024 End: 11-06-2024 Bamboo flowsheet Christine Sanjeev DO Work Phone: [facility] Start: 11-06-2024 End: 11-06-2024 Office outpatient visit 25 minutes Christinetaryn Zimmerman DO Work Phone: [facility] Comment on above: Transient alteration of awareness (Primary Dx); Speech disturbance, unspecified type; Migraine without aura and without status migrainosus, not intractable (CMS/HCC); Insomnia, unspecified type; Carpal tunnel syndrome, unspecified laterality; RLS (restless legs syndrome) Start: 11-06-2024 End: 11-06-2024 ambulatory CHRISTINE ZIMMERMAN Not Available Start: 10-27-2024 End: 10-27-2024 Clinisync Result Encounter Christine Zimmerman DO Work Phone: [facility] External [facility] Unsolicited Start: 10-27-2024 End: 10-27-2024 Clinisync Result Encounter Christine Zimmerman DO Work Phone: [facility] External [facility] Unsolicited Start: 09-14-2024 End: 09-14-2024 ambulatory NICOLE CHENR Not Available Start: 09-12-2024 End: 09-12-2024 Bamboo flowsheet Nicole Gillthorr STORES ASSISTANT Work Phone: [facility] Start: 09-12-2024 End: 09-12-2024 Bamboo flowsheet Nicole Richardsmor STORES ASSISTANT Work Phone: [facility] Start: 09-12-2024 End: 09-12-2024 Office outpatient visit 25 minutes Nicole Guzman STORES ASSISTANT Work Phone: [facility] Comment on above: Transient alteration of awareness (Primary Dx); Speech disturbance, unspecified type; Migraine without aura and without status migrainosus, not intractable (CMS/HCC); RLS (restless legs syndrome); Cervical radiculopathy Start: 09-12-2024 End: 09-12-2024 ambulatory NICOLE SUSIEMOR Not Available Start: 08-18-2024 End: 08-18-2024 Refill Javier West MD Work Phone: [facility] Comment on above: Gastroesophageal ref lux disease without esophagitis Start: 08-08-2024 End: 08-08-2024 Clinisync Result Encounter Halima Moncada STORES ASSISTANT Work Phone: [facility] External Department Unsolicited Start: 08-08-2024 End: 08-08-2024 Clinisync Result Encounter Halima Moncada STORES ASSISTANT Work Phone: [facility] External Department Unsolicited Start: 07-25-2024 End: 07-25-2024 Bamboo flowsheet Halima Aichholz STORES ASSISTANT Work Phone: [facility] Start: 07-25-2024 End: 07-25-2024 Bamboo flowsheet Halima Aichholz STORES ASSISTANT Work Phone: [facility] Start: 07-25-2024 End: 07-25-2024 Office outpatient visit 25 minutes Halima Aichholz STORES ASSISTANT Work Phone: [facility] Comment on above: Type 2 diabetes jordin itus without complication, without long- term current use of insulin (CMS/HCC) (Primary Dx); Hypothyroidism, unspecified type (CMS/HCC); Primary hypertension (CMS/HCC); Migraine without aura and without status migrainosus, not intractable (CMS/[facility]); Obesity (BMI 30-39.9) Start: 07-25-2024 End: 07-25-2024 ambulatory HALIMA AICHHOLZ Not Available Start: 07-24-2024 End: 07-24-2024 Office outpatient visit 25 minutes Lester Verdugo MD Work Phone: [facility] Comment on above: Fibromyalgia Start: 07-24-2024 End: 07-24-2024 ambulatory LESTER VERDUGO [facility] Start: 07-10-2024 End: 07-10-2024 Refill Halima Aichholz STORES ASSISTANT Work Phone: [facility] Comment on above: Type 2 diabetes jordin itus without complication, without long- term current use of insulin (CMS/HCC) (Primary Dx) Start: 06-29-2024 End: 06-29-2024 Refill Halima Aichholz STORES ASSISTANT Work Phone: [facility] Comment on above: Type 2 diabetes jordin itus without complication, without long- term current use of insulin (CMS/HCC) Start: 06-28-2024 End: 06-28-2024 Refill Halima Aichholz STORES ASSISTANT Work Phone: [facility] Comment on above: Type 2 diabetes jordin itus without complication, without long- term current use of insulin (CMS/[facility]) Start: 06-20-2024 End: 06-20-2024 Bamboo flowsheet Nicole Richardsfrancis STORES ASSISTANT [facility] Start: 06-20-2024 End: 06-20-2024 Bamboo flowsheet Nicole Richardsfrancis STORES ASSISTANT [facility] Start: 06-20-2024 End: 06-20-2024 Office outpatient visit 25 minutes Nicole Richardsfrancis STORES ASSISTANT Work Phone: [facility] Comment on above: Migraine without aur a and without status migrainosus, not intractable (CMS/[facility]) (Primary Dx); Insomnia, unspecified type; RLS (restless legs syndrome) Start: 06-20-2024 End: 06-20-2024 ambulatory NICOLE LYUBOV Not Available Start: 06-19-2024 End: 06-19-2024 Refill [facility]dugo MD [facility] Comment on above: Fibromyalgia Start: 05-26-2024 End: 05-26-2024 Clinisync Result Encounter Halima Moncada STORES ASSISTANT Work Phone: [facility] External [facility] Unsolicited Start: 05-26-2024 End: 05-26-2024 Clinisync Result Encounter Halima Moncada STORES ASSISTANT Work Phone: [facility] Unsolicited Start: 05-25-2024 End: 05-25-2024 Bamboo flowsheet Halima Jhonz STORES ASSISTANT Work Phone: [facility] Start: 05-25-2024 End: 05-31-2024 Bamboo flowsheet Halima Jhonz STORES ASSISTANT Work Phone: [facility] Start: 05-25-2024 End: 05-31-2024 Clinisync Result Encounter Halima Moncada STORES ASSISTANT Work Phone: [facility] External Department Unsolicited Start: 05-25-2024 End: 05-25-2024 Patient encounter procedure Halima Moncada STORES ASSISTANT Work Phone: [facility] Start: 05-25-2024 End: 05-25-2024 Periodic preventive med est patient 40-64yrs Halima Moncada STORES ASSISTANT Work Phone: [facility] Comment on above: Encounter for well w roxy exam with routine gynecological exam (Primary Dx); Encounter for screening mammogram for malignant neoplasm of breast; Hypothyroidism, unspecified type (CMS/HCC); Amenorrhea; Dizziness and giddiness Start: 05-25-2024 End: 05-25-2024 ambulatory HALIMA BROWNSONIYAShannan Not Available Start: 04-12-2024 End: 04-12-2024 ambulatory TD Gutierrez [facility] Start: 02-28-2024 End: 02-28-2024 ambulatory Montana Bergeron MD Facility:[facility] Start: 02-23-2024 End: 02-23-2024 ambulatory HALIMA CORAL Not Available Start: 02-07-2024 End: 02-07-2024 ambulatory HALIMA CORAL Not Available Start: 02-03-2024 End: 02-03-2024 ambulatory NICOLE GUZMAN Not Available Start: 01-17-2024 End: 01-17-2024 ambulatory [facility] Start: 01-11-2024 End: 01-11-2024 ambulatory HALIMA CORAL Not Available Start: 12-24-2023 Telephone encounter Saeid Gooden [facility] Start: 05-03-2023 End: 05-03-2023 ambulatory Priyanka Jones Other [employer] Other Start: 05-03-2023 Office outpatient vi sit 15 minutes Priyanka Jones [facility] Start: 01-22-2023 End: 01-23-2023 ambulatory MONA MORIN Facility: Start: 11-23-2022 End: 11-23-2022 ambulatory Mona Morin Other [employer] Other Start: 11-23-2022 Telephone encounter Mona Breaul t [facility] Start: 11-20-2022 End: 11-20-2022 ambulatory Mona Morin Other [employer] Other Start: 11-20-2022 Encounter by computer link Mona Yeungault [facility] Start: 11-17-2022 End: 11-18-2022 ambulatory MONAMONTY MORIN [employer] Other Start: 11-17-2022 Office outpatient vi sit 15 minutes Mona Shane [facility] Start: 10-06-2022 End: 10-06-2022 ambulatory Mona Shane Other [employer] Other Start: 10-06-2022 Telephone encounter Monamonty Palmerl t [facility] Start: 09-29-2022 End: 09-29-2022 ambulatory PHYSICIAN [facility] Work Phone: Start: 09-29-2022 End: 09-29-2022 Departed Referred PHYSICIAN [facility] [place] Work Phone: Start: 09-28-2022 End: 09-28-2022 ambulatory Mona Shane Other [employer] Other Start: 09-28-2022 Office outpatient vi sit 15 minutes Mona Shane [facility] Start: 09-14-2022 End: 09-14-2022 ambulatory Mona Shane Other [employer] Other Start: 09-14-2022 Telephone encounter Mona Breaul t [facility] Start: 07-14-2022 End: 07-14-2022 ambulatory Mona Shane Other [employer] Other Start: 07-14-2022 Office outpatient vi sit 15 minutes Mona Shane [facility] Start: 06-30-2022 End: 06-30-2022 ambulatory Mona Shane Other [employer] Other Start: 06-30-2022 Office outpatient vi sit 15 minutes Mona Shane [facility] Start: 04-02-2022 End: 04-02-2022 ambulatory Mona Shane Other [employer] Other Start: 04-02-2022 Telephone encounter Mona Breaul t [facility] Start: 03-31-2022 Telephone encounter Mona Breaul t [facility] Start: 03-31-2022 End: 04-01-2022 ambulatory MONA SHANE [employer] Other Start: 02-03-2022 End: 02-03-2022 ambulatory Mona Shane Other [employer] Other Start: 02-03-2022 Office outpatient vi sit 15 minutes Mona Shane [facility] Start: 12-10-2021 End: 12-10-2021 ambulatory Mona Shane Other [employer] Other Start: 12-10-2021 Telephone encounter Mona Breaul t [facility] Start: 11-10-2021 End: 11-10-2021 ambulatory Mona Shane Other [employer] Other Start: 11-10-2021 Telephone encounter Mona Breaul t [facility] Start: 09-03-2021 End: 09-03-2021 ambulatory Kaylie Ginty Other [employer] Other Start: 09-03-2021 Telephone encounter Kaylie Lozoyajhoncecilio [facility] Start: 08-31-2021 End: 08-31-2021 ambulatory Kaylie Echeverria Other [facility] [employer] Other Start: 08-31-2021 Office outpatient vi sit 15 minutes Kaylie Lozoyachrissie [facility] Procedures Date Procedure Procedure Detail Performing Clinician Start: 10-27-2024 MR HEAD/BRAIN WO CON Ni marylou Sanjeev DO Work Phone: Start: 09-13-2024 Mammography Nicole Tha monique STORES ASSISTANT Work Phone: Start: 08-08-2024 MLR HEMOGLOBIN A1C Halima Moncada STORES ASSISTANT Work Phone: Start: 05-26-2024 ALL THYROID STIM HORMONE Halimanargis Moncada STORES ASSISTANT Work Phone: Start: 05-26-2024 TBH PREG QUANT HCG Halimanargis Moncada STORES ASSISTANT Work Phone: Start: 05-25-2024 IGP,APTIMA HPV,AGE GDLN Halima Coral STORES ASSISTANT Work Phone: Start: 09-13-2023 Mammography Halima Guillermina grande STORES ASSISTANT Work Phone: Start: 11-25-2020 Microscopic observat ion [Identifier] in Cervix by Cyto stain Halima Moncada STORES ASSISTANT Work Phone: Start: 10-11-2017 Mammography Saeid hogue COMPUTATIONAL GENETICIST Start: 02-05-2017 Microscopic observat ion [Identifier] in Cervix by Cyto stain Saeid Gooden CMA Plan of Treatment Date Care Activity Detail Author Start: 05-25-2029 Screening for malignant neoplasm of cervix [facility] Start: 09-13-2025 Screening for malignant neoplasm of breast Mammogram [facility] Start: 07-24-2025 Adult BMI Screening Adult BMI Screen ing [facility] Start: 07-24-2025 Tobacco Screening Tobacco Screening [facility] Start: 07-24-2025 End: 07-24-2025 Patient encounter procedure 07/24/2025 10:15 AM EDT Office Visit [facility] [address] [place] [id number] Lester Verdugo MD [address] [address] [facility] Start: 03-01-2025 End: 03-01-2025 Patient encounter procedure 03/01/2025 9:40 AM EDT Office Visit [facility] [address] [address] Nciole Guzman NP [address] [facility] Start: 02-05-2025 Hemoglobin A1c measurement Diabetes: Hemoglobin A1C [facility] Start: 01-31-2025 Urine screening for protein Diabetes: [facility] Start: 01-22-2025 End: 01-22-2025 Patient encounter procedure 01/22/2025 9:00 AM EDT Office Visit [facility] [address] [place] [address] Halima Moncada NP [address] [place] [address] [facility] Start: 11-06-2024 End: 11-06-2024 Patient encounter procedure [place] Comment on above: Arrived Start: 10-28-2024 Glaucoma screening Diabetes: R [facility]inopathy [facility] Start: 09-14-2024 End: 09-14-2024 Professional / ancillary services management 09/14/2024 9:45 AM EST Ancillary Procedure [facility] [address] [phone] [facility] Start: 09-13-2024 End: 07-25-2025 MG Breast - bilateral Screening Bilateral screening mammogram Imaging Routine Encounter for screening mammogram for malignant neoplasm of breast Expected: 09/13/2024 (Approximate), Expires: 07/25/2025 [facility] Work Phone: Comment on above: Expected: 09/13/2024 (Approximate), Expires: 07/25/2025 Start: 09-13-2024 Screening for malignant neoplasm of breast Mammogram [facility] Start: 09-13-2024 Screening for malignant neoplasm of colon Colorectal Cancer Screening [facility] Comment on above: Postponed from 12/05 (Patient Refused) Start: 09-12-2024 End: 09-12-2025 EEG, Including Recording Awake or Asleep EEG, Including Recording Awake or Asleep Neurology Routine Transient alteration of awareness Expected: 09/12/2024 (Approximate), Expires: 09/12/2025 [facility] Comment on above: Expected: 09/12/2024 (Approximate), Expires: 09/12/2025 Start: 09-12-2024 End: 09-12-2025 MR Brain WO contrast MR brain wo contrast Imaging Routine Transient alteration of awareness Speech disturbance, unspecified type Expected: 09/12/2024 (Approximate), Expires: 09/12/2025 [facility] Work Phone: Comment on above: Expected: 09/12/2024 (Approximate), Expires: 09/12/2025 Start: 09-12-2024 End: 09-12-2024 Patient encounter procedure [facility] Comment on above: Arrived Start: 08-03-2024 Hemoglobin A1c measurement Diabetes: Hemoglobin A1C [facility] Start: 07-25-2024 End: 07-25-2025 Hemoglobin A1c/Hemoglobin.total in Blood Hemoglobin A1c Lab Routine Type 2 diabetes mellitus without complication, without long-term current use of insulin ([facility]) Expected: 07/25/2024 (Approximate), Expires: 07/25/2025 [facility] Work Phone: Comment on above: Expected: 07/25/2024 (Approximate), Expires: 07/25/2025 Start: 07-25-2024 End: 07-25-2024 Patient encounter procedure [facility] Comment on above: Type 2 diabetes jordin itus without complication, without long- term current use of insulin (CMS/HCC) (Primary Dx); Hypothyroidism, unspecified type (CMS/HCC); Primary hypertension (CMS/HCC) Start: 07-24-2024 End: 07-24-2024 Patient encounter procedure 07/24/2024 10:15 AM EDT Office Visit [facility] [address] [address] Lester Verdugo MD [address] [address] [facility] Start: 06-20-2024 End: 06-20-2024 Patient encounter procedure [facility] Comment on above: Arrived Start: 06-19-2024 End: 06-19-2024 Patient encounter procedure 06/19/2024 9:20 AM EDT Office Visit [facility] [address] [place] [address] Halima Moncada NP [address] [place] [address] [facility] Start: 05-28-2024 Influenza vaccination [facility] Start: 05-26-2024 Adult BMI Screening Adult BMI Screen ing [facility] Start: 05-26-2024 Tobacco Screening Tobacco Screening [facility] Start: 05-25-2024 End: 05-25-2025 HCG, quantitative, HCG, quantitative, Lab Routine Amenorrhea Expected: 05/25/2024 (Approximate), Expires: 05/25/2025 [facility] Comment on above: Expected: 05/25/2024 (Approximate), Expires: 05/25/2025 Start: 05-25-2024 End: 05-25-2025 Prolactin level Prolactin level Lab Routine Amenorrhea Expected: 05/25/2024 (Approximate), Expires: 05/25/2025 [facility] Comment on above: Expected: 05/25/2024 (Approximate), Expires: 05/25/2025 Start: 05-25-2024 End: 05-25-2025 THIN PREP TIS PAP AND HR HPV DNA THIN PREP TIS PAP AND HR HPV DNA Pathology and Cytology Routine Encounter for well woman exam with routine gynecological exam Expected: 05/25/2024 (Approximate), Expires: 05/25/2025 [facility] Comment on above: Expected: 05/25/2024 (Approximate), Expires: 05/25/2025 Start: 05-25-2024 End: 05-25-2025 Thyrotropin [Units/volume] in Serum or Plasma TSH Lab Routine Hypothyroidism, unspecified type (CMS/HCC) Amenorrhea Expected: 05/25/2024 (Approximate), Expires: 05/25/2025 [facility] Comment on above: Expected: 05/25/2024 (Approximate), Expires: 05/25/2025 Start: 05-25-2024 End: 05-25-2025 Thyroxine (T4) free [Mass/volume] in Serum or Plasma T4, free Lab Routine Hypothyroidism, unspecified type (CMS/HCC) Expected: 05/25/2024 (Approximate), Expires: 05/25/2025 [facility] Comment on above: Expected: 05/25/2024 (Approximate), Expires: 05/25/2025 Start: 05-25-2024 End: 05-25-2025 US Pelvis transvaginal US pelvis transvaginal Imaging Routine Amenorrhea Expected: 05/25/2024 (Approximate), Expires: 05/25/2025 [facility] Comment on above: Expected: 05/25/2024 (Approximate), Expires: 05/25/2025 Start: 05-25-2024 End: 05-25-2024 Patient encounter procedure 05/25/2024 10:30 AM EDT Procedure Visit [facility] [address] [place] [address] Halima Moncada NP [address] [place] [address] Encounter for screening mammogram for malignant neoplasm of breast (Primary Dx) [facility] Comment on above: Encounter for screen ing mammogram for malignant neoplasm of breast (Primary Dx) Start: 11-26-2023 Screening for malignant neoplasm of cervix [facility] Start: 05-28-2023 Influenza vaccination Influenza Vacc ine [facility] Start: 09-29-2022 Aerobic Culture Aerobic Culture [facility] Start: 09-29-2022 Anaerobic Culture Anaerobic Culture [facility] Start: 09-29-2022 Microscopic observation [Identifier] in Unspecified specimen by Gram stain Gram Stain [facility] Start: 02-06-2020 Screening for malignant neoplasm of cervix Pap Smear [facility] Start: 10-11-2018 Screening for malignant neoplasm of breast Mammogram [facility] Start: 2006 Screening for malignant neoplasm of cervix HPV/Cotest [facility] Start: 12-06-1995 DTaP,Tdap and Td Vaccines (1 - Tdap) DTaP,Tdap and Td Vaccines ( - Tdap) [facility] Start: 1994 Adult BMI Follow Up Plan Adult BMI Follow Up Plan [facility] Start: 1988 Depression Screening Depression Scre ening [facility] Start: 1976 Screening for malignant neoplasm of colon [facility] Bacteria identified in Unspecified specimen by Aerobe culture [facility] Bacteria identified in Unspecified specimen by Anaerobe culture [facility] Immunizations Immunization Date Immunization Notes Care Provider [place] ja[place] 10-01-2020 influenza virus vacc ine, unspecified formulation Saeid Gooden [facility] Payers Date Payer Category Payer Medicaid [id number] 2022 Medicaid [id number] [facility] [id number] 2017 [employer] - Other ANTH Member Subscriber Plan / Payer (Effective 2017-Present) Name: Tatiana Sepulveda Relation to Subscriber: Spouse Name: LENIN SEPULVEDA Date of : 1975 (Home) Address: [address] [place] [id number] Payer ID: [id number] (NAIC) Type: Not on file Address: [address] [place] [address] [id number] 2017 Unknown 1976 Unknown [id number] 1976 Unknown [id number] 1976 Unknown [id number] 1976 Unknown [id number] 1976 Unknown [id number] [id number]. 196 1975 Unknown [id number] 2.16.840.1.827117.3.579.2. 1286 1975 Unknown [id number] 2.16.840.1.738550.3.579.2. 1259 1976 Unknown [id number] 2.16.840.1.830720.3.579.2. 9 1976 Unknown [id number] 2.16.840.1.768743.3.579.2. 9 1976 Unknown [id number] 2.16.840.1.006513.3.579.2. 9 1976 Unknown [id number] 2.16.840.1.375285.3.579.2. 1258 1976 Unknown [id number] 2.16.840.1.895947.3.579.2. 1258 1976 Unknown [id number] 2.16.840.1.200665.3.579.2. 1258 1976 Unknown [id number] 2.16.840.1.343395.3.579.2. 9 1976 Unknown [id number] 2.16.840.1.974619.3.579.2. 1258 1976 Unknown [id number] 2.16.840.1.094749.3.579.2. 1258 1976 Unknown [id number] 2.16.840.1.279674.3.579.2. 6 1976 Unknown [id number] 2.16.840.1.294378.3.579.2. 1286 1959 Unknown [id number] 2.16.840.1.018862.19 1959 Unknown [id number] Blue [employer] Blue Shield [id number] Self-pay Self Pay [id number] Unknown [id number] 2.840.1.785716.19 Social History Date Type Detail Facility Unknown if ever smoked [employer] Other Start: 09-12-2023 End: 11-06-2024 Sex Assigned At [facility] Start: 1975 Sex Assigned At Female [facility] Start: 08-23-2017 End: 10-26-2023 Tobacco smoking status NHIS Never smoked tobacco [facility] Start: 08-23-2017 End: 10-26-2023 Tobacco use and exposure Smokeless tobacco non-user [facility] Start: 06-20-2024 End: 11-06-2024 Alcoholic beverage intake Lifetime non-drinker (finding) [facility] Start: 09-12-2023 End: 11-06-2024 History of Social function [facility] Within the last year , have you been afraid of your partner or ex-partner? No [facility] Do you belong to any clubs or organizations such as yazidism groups, unions, fraternal or athletic groups, or school groups? Yes [facility] Are you now , , , , never or living with a partner? [facility] How often to you hav e a drink containing alcohol? Never [facility] How many standard dr inks containing alcohol do you have on a typical day? Patient does not drink [facility] Do you feel stress - tense, restless, nervous, or anxious, or unable to sleep at night because your mind is troubled all the time - these days [OSQ] To some extent [facility] Start: 10-26-2023 Alcohol Comment soda: 2 cups daily [facility] Start: 1975 Sex assigned at Not on file [facility] Start: 05-26-2023 End: 07-24-2024 Alcohol intake Current non-drinker of alcohol (finding) [facility] [employer] [facility] Start: 04-30-2015 Sex Female (finding) [facility] Procedure Code Equipment Code Equipment Origin al Text Equipment Identifier Dates Start: 06-04-2020 Clinical Notes 08-31-2021 to 11-06-2024 Christine Zimmerman DO - 11/06/2024 1:00 PM Yessica Moncada NP - 07/25/2024 9:18 AM Nubia Moncada NP - 07/25/2024 9:17 AM Nubia Moncada NP - 07/25/2024 9:17 AM EDT Note Date & Type Note Facility 11-06-2024 History of Presen t illness Narrative Images from the original note were not included. Chief Complaint Patient presents with Migraine Restless Legs Insomnia Subjective She is here post MRI Brain. She is taking zanaflex nightly. She states that it helps her sleep. She sleeps 6-8 hours a night of broken sleep, more often 6 hours. She is waking up about 6 times a night. She can go back to sleep but it takes a little while. She is taking 2 at bedtime. She is active during the day but not exercise. Her snores a lot. He has sleep apnea. Tatiana states she is taking Nurtec every other day and abortively. She is getting 2-3 migraines a month. They last anywhere from 1-3 days. She feels like it is helping. No new concerns today. No new spells. No zoning out. She does not feel like she has signs of sleep apnea. Past Medical History: Diagnosis Date Backache 11/19/2016 [...] GASTROPLASTY 12/2017 VEIN SURGERY 03/2009 Leg veins Family History Problem Relation Name Age of Onset Hypertension Mother Hypertension Father Heart disease Father Stroke Father Heart disease Paternal Grandfather Hypertension Paternal Grandfather Bone cancer Paternal Grandfather Breast cancer Other Maternal side Melanoma Other Maternal side Social History Tobacco Use Smoking status: Never Smokeless tobacco: Never Substance Use Topics Alcohol use: Never Comment: soda: 2 cups daily Allergies: Patient has no known allergies. General: No fever or chills HEENT: No nasal congestion or runny nose Pulmonary: No shortness of breath or cough Cardiovascular: No chest pain or palpitations GI: No nausea or vomiting : No dysuria or hematuria Musculoskeletal: No new aches or pains or muscle weakness Infectious: no recurrent fevers or infections Dermatologic: No rashes or skin lesions Neurologic: No new headaches or dizziness other than in HPI Vitals: 11/06/24 1248 BP: 116/78 Pulse: 63 SpO2: 96% Body mass index is 33.36 kg/m . weight: 182 lb 6.4 oz Neurologic exam: Mental status: Awake, alert to person, place and time. Recent and remote memory are intact. Attention and concentration are normal. Fund of knowledge is appropriate for level of education. HEENT: NC/AT Cranial nerves: CN II: Visual acuity is normal. Visual stout full to confrontation. CN III, IV, : pupils equal round and reactive to light. Extraocular movements intact. No ptosis present. CN V: Facial sensation is normal. CN VII: Full and symmetric facial movement. CN VIII: Hearing is normal to finger rub bilaterally: CN IX and X: Palate elevates symmetrically. Normal gag reflex. CN XI: Shoulder shrug is normal bilaterally. CN XII: Tongue is midline without atrophy or fasciculation. Speech: Clear and fluent no aphasia or dysarthria Pronator drift: Negative bilateral upper extremity Coordination: Intact, no signs of dysmetria Good finger to nose and rapid alternating movements Sensory: Sensation is intact to light touch and vibratory throughout four extremities. Motor: LUE 5/5 RUE 5/5 LLE 5/5 RLE 5/5 Tone: Physiologic, no tremor, bradykinesia or rigidity DTR: Biceps, BR 2/4 Patellar 2/4 No spasticity Gait: Normal to casual gait Romberg's negative Assessment/Plan There are no diagnoses linked to this encounter. 48 year old female with migraines. She is under better control now with the Nurtec every other day and Zanaflex 2 at bedtime along with the amitriptyline 50 mg at bedtime. She is doing better than she was. She is still having some sleep issues in the fact that she sleeps 6-8 hours per night more often 6 and gets up about 6 times a night. Unfortunately think 1 of the disruptive of her sleep is her 's snoring. He does have a CPAP machine but he snores through the machine. She was counseled she should have him speak to his sleep doctor as they may need up the pressure to help also control the snoring and check residual AHI to be sure that it is working for him. She may need to have a sleep and go sleep somewhere else through the night most nights in order to get a better night's sleep. She could add melatonin at dinnertime. I am reluctant to upper medications at this time as I think she needs to treat some of this non pharmacologically. She also needs to increase her cardiovascular exercise. She is active but not truly exercising. She has stopped the gabapentin and replaced it with 800 mg Mg per advice of another provider. She does take mobic daily but has now stopped the naproxen therefore likely less rebound VALERO She has fibro and RLS She did have a low ferritin that was likely contributing. She has been taking the ferrous sulfate and this is helping and she will continue with this. Other lab work was normal as noted below. Maxalt for an abortive only took the edge off after 2 doses . . She has trialed and failed ubrelvy, Aimovig, zonegran, Imitrex, Relpax, maxalt, NSAIDs and others. CTS is currently not overall bothersome and is stable. . She was having some speech difficulties hesitation trouble getting her words out. She had an EEG and it was normal. MRI of the brain was nonacute. At this time I suspect it is more sleep-related and headache related. Appears to be better now. She had an episode 2 years ago with incontinence she reports when asked about nocturnal signs of seizure. 2012 one episode when she was and 3 other episodes over the years of dizziness with arm tingling, a blank stare and inability to speak. . Review and summary of old records: Ferritin 12.0, B12 547, folate 18.40, phosphorus 4.3, Mg 1.8, TSH 93.065, Hgb A1C 5.9% . . . Plan MRI brain at = Nonacute routine EEG= was within normal limits Cont Nurtec 75 mg preventatively every other day Cont Nurtec 75 mg for abortive, one in 24 hours on off day of using it for prevention if needed Continue zanaflex 4mg 2 po at bedtime Continue ferrous sulfate 325 mg daily with vitamin C for RLS Increase regular exercise program Could add melatonin at dinnertime Have 's sleep apnea looked at and potentially increase the pressure of his machine to stop his snoring and disrupting her sleep or sleep in a different room Continue with plate former monitor for worsening symptoms continue to get 8 hours of sleep exercise This was discussed with the patient, all questions were answered and they agreed with the treatment plan. The patient is to call with any worsening of the condition or new symptoms. Return to clinic: [address] Zimmerman for new episodes documented in this encounter [facility] 07-25-2024 History of Presen t illness Narrative Associated Problem(s): Migraines (CMS/HCC) Inadvertantly cancelled her nurtec script Contact pharmacy DM, spoke to associate let them know to keep this active Associate Tr Shay with neurology Associated Problem(s): Hypothyroidism (CMS/HCC) No dose changes needed, doing well Associated Problem(s): Type 2 diabetes mellitus (CMS/HCC) Continue current meds No DIANE: dizziness No ASA: hx gastric sleeve Statin: [...] and simple sugars. Associated Problem(s): HTN (hypertension) ([facility]) Stopped her diane at last appt d/t dizziness, her blood pressures have been great and no dizziness At this point we will leave her off DIANE for renal protection d/t dizziness Images from [...] blood glucose range is 90-110 mg/dl. An DIANE inhibitor/angiotensin II receptor leighton is being taken. She does not see a veterinary receptionist.Eye exam is current. Thyroid Problem Presents for [...] As needed insulin syringe-needle U-100 31G X 5/16 0.3 mL misc 1 each, Weekly levothyroxine [...] adult 09/13/2023 Common migraine (CMS/HCC) 09/07/2008 Depression ([facility]/HCC) Disturbance of skin sensation 05/07/2015 EDS (Jen-Danlos syndrome) ([facility]) Fatigue Fibromyalgia GERD (gastroesophageal reflux disease) HTN (hypertension) (CMS/HCC) Hyperlipidemia (CMS/HCC) Hypersomnia 11/17/2014 Hypothyroidism ([facility]/HCC) Migraines (CMS/HCC) 07/13/2008 Muscle spasm 11/19/2016 Nausea with vomiting 02/21/2015 Nonspecific abnormal results of function study 08/19/2009 brain and central nervous system; other JONATHAN (obstructive sleep apnea) 10/18/2019 Pain in limb 05/07/2015 PCOS (polycystic ovarian syndrome) Pre-diabetes Sleep disturbance 03/19/2014 Snoring 02/21/2015 Tension headache 07/13/2008 Type 2 diabetes mellitus ([facility]) Varicose veins of both legs [...] This Visit HTN (hypertension) (CMS/HCC) Stopped her diane at last appt d/t dizziness, her blood pressures have been great and no dizziness At this point we will leave her off DIANE for renal protection d/t dizziness Hypothyroidism ([facility]/HCC) No dose changes needed, doing well Relevant Medications levothyroxine (Synthroid, Levoxyl) 50 MCG tablet Migraines ([facility]/HCC) [facility] DM, spoke to associate let them know to keep this active Associate Tr Shay with neurology Type 2 diabetes mellitus ([facility]) - Primary Continue current meds No DIANE: dizziness No ASA: hx gastric sleeve Statin: [...] Obesity (BMI 30-39.9) documented in this encounter [facility] 07-24-2024 History of Presen t illness Narrative Images from the original note were not included. [address] [place] [address] [facility] [id number] Date of Service: 07/24/2024 Subjective: Tatiana Sepulveda [...] morning. SAMPLES PROVIDED TO PATIENT 04/12/24 LOT# [id number]; EXP: [id number].) 14 tablet 0 brexpiprazole (REXULTI) 1 mg tablet Take 1 tablet (1 mg total) by mouth in the morning. (Patient taking differently: Take 1 tablet (1 mg total) by mouth in the morning. SAMPLES PROVIDED TO PATIENT ON 04/12/24 LOT#[id number] EXPIRES: 01/2025.) 14 tablet 0 budesonide-formoterol (SYMBICORT) [...] or corrected. Thank you for your understanding. [facility] Dr. Lester Verdugo MD [address] [facility], [address] [place] [address] Office: [phone] documented in this encounter [facility] 05-25-2024 History of Presen t illness Narrative Associated Problem(s): Dizziness and giddiness Hold lisinopril at this time If after a few weeks if not better call office Associated Problem(s): Encounter for well woman exam with routine gynecological exam Monthly BSE Yearly mammograms PAP as indicated Healthy diet and exercise Associated Problem(s): Hypothyroidism (CMS/HCC) Will recheck, to r.o abnormal [...] chief complaint on file. 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[facility]) Fatigue Fibromyalgia GERD (gastroesophageal reflux disease) HTN (hypertension) ([facility]) Hyperlipidemia (CMS/HCC) Hypersomnia 11/17/2014 Hypothyroidism (CMS/HCC) Migraines (CMS/HCC) 07/13/2008 Muscle spasm 11/19/2016 Nausea with vomiting 02/21/2015 Nonspecific abnormal results of function study 08/19/2009 brain and central nervous system; other JONATHAN (obstructive sleep apnea) 10/18/2019 Pain in limb 05/07/2015 PCOS (polycystic ovarian syndrome) Pre-diabetes Sleep disturbance 03/19/2014 Snoring 02/21/2015 Tension headache 07/13/2008 Type 2 diabetes mellitus ([facility]) Varicose veins of both legs [...] nursing note reviewed. Exam conducted with a automatic outsole cutter present. Constitutional: General: She is not in [...] Problem List Items Addressed This Visit Hypothyroidism ([facility]) Will recheck, to r.o abnormal and possible [...] better call office documented in this encounter [facility] 12-24-2023 Miscellaneous Notes Formattin g of this note might be different from the original. Attempted to contact patient to reschedule appointment on 05/31/[address] Verdugo is out of the office. No set up to leave a message. documented in this encounter [employer] 12-24-2023 Telephone encount er Note Attempted to contact patient to reschedule appointment on 05/31/[address] Verdugo is out of the office. No set up to leave a message. [facility] 05-03-2023 Evaluation note Encounter Date Diagnosis [...] fever. Patient/Parent verbalized understanding of treatment plan. [employer] Other 02-21-2023 Evaluation note* Encounter Date Diagnosis [...] weeks for the cough to go away [employer] Other 01-02-2023 Evaluation note* Encounter Date Diagnosis [...] obtained for C&S. Will call with results. [employer] Other 12-19-2022 Evaluation note* Encounter Date Diagnosis Assessment Notes Treatment Notes Treatment Clinical Notes Aug, Gastroesophageal ref lux disease, unspecified whether esophagitis present (ICD-10 - K21.9) Aug, PCOS (polycystic ovarian syndrome) (ICD-10 - E28.2) [employer] Other 10-18-2022 Evaluation note* Encounter Date Diagnosis Assessment Notes Treatment Notes Treatment Clinical Notes Jun, Fibromyalgia (ICD-10 - M79.7) Continue current treatment regimen. Printed off script to use as needed [employer] Other 10-04-2022 Evaluation note* Encounter Date Diagnosis Assessment Notes Treatment Notes Treatment Clinical Notes Jun, Primary hypertension (ICD-10 - I10) Jun, SJ (generalized anxiety disorder) (ICD-10 - F41.1) [employer] Other 07-07-2022 Evaluation note* Encounter Date Diagnosis Assessment Notes Treatment Notes Treatment Clinical Notes Mar, Right hip pain (ICD-10 - M25.551) [employer] Other 05-10-2022 Evaluation note* Encounter Date Diagnosis Assessment Notes Treatment Notes Treatment Clinical Notes January, Gastroesophageal ref lux disease, unspecified whether esophagitis present (ICD-10 - K21.9) Continue to take medication as directed. January, PCOS (polycystic ovarian syndrome) (ICD-10 - E28.2) Take medication as directed with food [employer] Other 03-16-2022 Evaluation note* Encounter Date Diagnosis Assessment Notes Treatment Notes Treatment Clinical Notes Nov, Sacral back pain (ICD-10 - M53.3) [employer] Other 02-14-2022 Evaluation note* Encounter Date Diagnosis Assessment Notes Treatment Notes Treatment Clinical Notes Oct, Gastroesophageal ref lux disease, unspecified whether esophagitis present (ICD-10 - K21.9) [employer] Other 02-14-2022 Evaluation note* Encounter Date Diagnosis Assessment Notes Treatment Notes Treatment Clinical Notes Oct, Sacral back pain (ICD-10 - M53.3) [employer] Other 2021 Evaluation note* Encounter Date Diagnosis [...] Patient care instructions given in writting by [facility] At Home document. [employer] Other Evaluation noteNo [employer] Other Evaluation noteNo assessment information available [facility] Work Phone: Evaluation note* Diagnosis Type 2 diabetes mellitus without complication, without long-term current use of insulin (CMS/HCC) documented in this encounter [facility]* Diagnosis Type 2 diabetes mellitus [...] complication, without long-term current use of insulin ([facility]) Primary hypertension (CMS/HCC) Unspecified essential [...] insulin (CMS/HCC)- Primary documented in this encounter [facility]* Diagnosis Type 2 diabetes mellitus [...] Obesity (BMI 30-39.9) documented in this encounter [facility]* Diagnosis Type 2 diabetes mellitus [...] migrainosus, not intractable (CMS/HCC) Obesity (BMI 30-39.9) Gastroesophageal reflux disease without esophagitis Esophageal reflux [facility] Diagnosis Encounter for well woman exam with routine gynecological exam- Primary Encounter for screening mammogram for malignant neoplasm of breast Hypothyroidism, unspecified type (CMS/HCC) Amenorrhea Absence of menstruation Dizziness and giddiness [facility] Diagnosis Migraine without aura and without status migrainosus, not intractable (CMS/HCC)- Primary Insomnia, unspecified type RLS (restless legs syndrome) Restless legs syndrome (RLS) [facility] Diagnosis Type 2 diabetes mellitus without complication, without long-term current use of insulin ([facility])- Primary Primary hypertension (CMS/HCC) Unspecified essential hypertension Hypothyroidism, unspecified type ([facility]/HCC) Class 1 obesity without serious comorbidity with [...] or radiculitis nos documented in this encounter [facility]* Diagnosis Type 2 diabetes mellitus [...] and without status migrainosus, not intractable (CMS/HCC) Insomnia, unspecified type Carpal tunnel syndrome, unspecified laterality RLS (restless legs syndrome) Restless legs syndrome (RLS) documented in this encounter [facility]* Diagnosis Fibromyalgia Unspecified myalgia and myositis [facility] Fibromyalgia Unspecified myalgia and myositis [facility] Diagnosis Type 2 diabetes mellitus [...] migrainosus, not intractable (CMS/HCC) Obesity (BMI 30-39.9) Gastroesophageal reflux disease without esophagitis Esophageal reflux [facility] N[facility]ative - Reported* Type Description Date Medical History asthma Medical History pcos Medical History Fibromyalgia Medical History Hypothyroidism - euthyroid Medical History chronic fatigue Surgical History gall bladder Surgical History vein removed in bilaterally Surgical History gastric sleeve Hospitalization History see above Hospitalization History [facility] [employer] Other InstructionsNot on filedocumented in this encounter [facility] SystemInstructionsNot on filedocumented in this encounter [facility] on filedocumented in this encounter [facility] SystemReason for [facility] NarrativeDermatology Referral Update [employer] Other Summary Purpose Family History No Family [...] Comments 01/24/2018 11:30 AM 01/26/2018 12:39 PM Date Activated Date Inactivated Comments 01/24/2018 11:30 AM 01/26/2018 12:39 PM Chief Complaint and Reason for Visit Chief Complaint Ragged cuticle Reason for Referral Specialty Diagnoses / Procedures Referred By Contac t Referred To Contact Diagnoses Type 2 diabetes mellitus without complication, without long-term current use of insulin ([facility]) Halima Moncada, NNAMDI [address] [place] [address] Referral ID Status Reason Start Date Expiration Date V isits Requested Visits Authorized [id number] Pending Review 1 1 Additional Source Comments REASON FOR VISIT (unrecogniz ed section and content) Reason Comments Med Refill Reason Comments Migraine Insomnia Restless Legs Reason Comments Migraine Insomnia Restless Legs Reason Comments Migraine Restless Legs Insomnia INFORMATION SOURCE (unrecogn ized section and content) DATE CREATED AUTHOR 03/27/2022 [facility] DATE CREATED AUTHOR AUTHOR'S ORGANIZ ATION 01/29/2023 [facility] DATE CREATED AUTHOR AUTHOR'S ORGANIZ ATION 03/07/2024 [facility] DATE CREATED AUTHOR AUTHOR'S ORGANIZ ATION 07/24/2024 [facility] DATE CREATED AUTHOR AUTHOR'S ORGANIZ ATION 11/08/2024 [facility] DATE CREATED AUTHOR AUTHOR'S ORGANIZ ATION 11/09/2024 [facility] Care Teams (unrecognized sec tion and content) Team Status: Inactive Member Role Status Dates PHYSICIAN NO FAMILY Primary Care Provider Active CHRISTIANO Jha Attending Provider Active Team Status: Active Member Role Status Dates PHYSICIAN NO FAMILY Primary Care Provider Active Retail Support Specialist Relationship Specialty Start Date End Date Javier West MD [address] [place] [address] PCP - General Family Medicine 01/11/24 Halima Moncada NP [address] [place] [id number] Nurse Practitioner Family Medicine 06/02/23 Halima Moncada NP [address] [place] [id number] Nurse Practitioner Family Medicine 01/11/24 Retail Support Specialist Relationship Specialty Start Date End Date Javier West MD [address] [place] [id number] PCP - General Family Medicine 01/11/24 Halima Moncada NP [address] [place] [address] Nurse Practitioner Family Medicine 06/02/23 Halima Moncada NP [address] [place] [address] Nurse Practitioner Family Medicine 01/11/24 Retail Support Specialist Relationship Specialty Start Date End Date Javier West MD [address] [place] [address] PCP - General Family Medicine 01/11/24 Halima Moncada NP [address] [place] [address] Nurse Practitioner Family Medicine 06/02/23 Halima Moncada NP [address] [place] [address] Nurse Practitioner Family Medicine 01/11/24 Retail Support Specialist Relationship Specialty Start Date End Date Javier West MD [address] [place] [address] PCP - General Family Medicine 01/11/24 Halima Moncada NP [address] [place] [address] PCP - [employer] 06/27/24 Halima Moncada NP [address] [place] [address] Nurse Practitioner Family Medicine 06/02/23 Halima Moncada NP [address] [place] [address] Nurse Practitioner Family Medicine 01/11/24 Retail Support Specialist Relationship Specialty Start Date End Date Javier West MD [address] [place] [address] PCP - General Family Medicine 01/11/24 Halima Moncada NP [address] [place] [address] PCP - [employer] 06/27/24 Halima Moncada NP [address] [place] [address] Nurse Practitioner Family Medicine 06/02/23 Halima Moncada NP [address] [place] [address] Nurse Practitioner Family Medicine 01/11/24 Retail Support Specialist Relationship Specialty Start Date End Date Javier West MD [address] [place] [address] PCP - General Family Medicine 01/11/24 Halima Moncada NP [address] [place] [address] Nurse Practitioner Family Medicine 06/02/23 Halima Moncada NP [address] [place] [address]10[address] Nurse Practitioner Family Medicine 01/11/24 Christine Zimmerman DO [address] [place] [address] Referring Physician Neurology 09/12/24 Retail Support Specialist Relationship Specialty Start Date End Date Javier West MD [address] [place] [address] PCP - General Family Medicine 01/11/24 Halima Moncada NP [address] [place] [address] Nurse Practitioner Family Medicine 06/02/23 Halima Moncada NP [address] [place] [address] Nurse Practitioner Family Medicine 01/11/24 Retail Support Specialist Relationship Specialty Start Date End Date Javier West MD [address] [place] [address] PCP - General Family Medicine 01/11/24 Halima Moncada NP [address] [place] [address] Nurse Practitioner Family Medicine 06/02/23 Halima Moncada NP [address] [place] [address] Nurse Practitioner Family Medicine 01/11/24 Retail Support Specialist Relationship Specialty Start Date End Date Javier West MD [address] [place] [address]10[address] PCP - General Family Medicine 01/11/24 Halima Moncada NP [address] [place] [address] Nurse Practitioner Family Medicine 06/02/23 Halima Moncada NP [address] [place] [address] Nurse Practitioner Family Medicine 01/11/24 Retail Support Specialist Relationship Specialty Start Date End Date Javier West MD [address] [place] [address] PCP - General Family Medicine 01/11/24 Halima Moncada NP [address] [place] [address] Nurse Practitioner Family Medicine 06/02/23 Halima Moncada NP [address] [place] [address] Nurse Practitioner Family Medicine 01/11/24 Retail Support Specialist Relationship Specialty Start Date End Date Javier West MD [address] [place] [address] PCP - General Family Medicine 01/11/24 Halima Moncada NP [address] [place] [address] Nurse Practitioner Family Medicine 06/02/23 Halima Moncada NP [address] [place] [address] Nurse Practitioner Family Medicine 01/11/24 Retail Support Specialist Relationship Specialty Start Date End Date Javier West MD [address] [place] [address] PCP - General Family Medicine 01/11/24 Halima Moncada NP [address] [place] [address] Nurse Practitioner Family Medicine 06/02/23 Halima Moncada NP [address] [place] [address] Nurse Practitioner Family Medicine 01/11/24 Retail Support Specialist Relationship Specialty Start Date End Date Javier West MD [address] [place] [address] PCP - General Family Medicine 01/11/24 Halima Moncada NP [address] [place] [address] Nurse Practitioner Family Medicine 06/02/23 Halima Moncada NP [address] [place] [address] Nurse Practitioner Family Medicine 01/11/24 Christine Zimmerman DO [address] [place] [address] Referring Physician Neurology 09/12/24 Retail Support Specialist Relationship Specialty Start Date End Date Javier West MD [address] [place] [address] PCP - General Family Medicine 01/11/24 Halima Moncada NP [address] [place] [address] Nurse Practitioner Family Medicine 06/02/23 Halima Moncada NP [address] [place] [address] Nurse Practitioner Family Medicine 01/11/24 Christine Zimmerman DO [address] [place] [address] Referring Physician Neurology 09/12/24 Retail Support Specialist Relationship Specialty Start Date End Date Javier West MD [address] [place] [address] PCP - General Family Medicine 01/11/24 Halima Moncada NP [address] [place] [address] PCP - [employer] 09/27/24 Halima Moncada NP [address] [place] [address] Nurse Practitioner Family Medicine 06/02/23 Halima Moncada NP [address] [place] [address] Nurse Practitioner Family Medicine 01/11/24 Christine Zimmerman DO [address] [place] [address] Referring Physician Neurology 09/12/24 Retail Support Specialist Relationship Specialty Start Date End Date Javier West MD [address] [place] [place] [address] PCP - General Family Medicine 01/11/24 Halima Moncada NP [address] [place] [address] PCP - [employer] 09/27/24 Halima Moncada NP [address] [place] [address] Nurse Practitioner Family Medicine 06/02/23 Halima Moncada NP [address] [place] [address] Nurse Practitioner Family Medicine 01/11/24 Christine Zimmerman DO [address] [place] [address] Referring Physician Neurology 09/12/24 Retail Support Specialist Relationship Specialty Start Date End Date Mona Morin [facility] [address] [place] [address] PCP - General Family Medicine 01/08/21 Retail Support Specialist Relationship Specialty Start Date End Date Mona Morin [facility] [address] [place] [address] PCP - General Family Medicine 01/08/21 Retail Support Specialist Relationship Specialty Start Date End Date Mona Morin [facility] [address] [place] [address] PCP - General Family Medicine 01/08/21 Retail Support Specialist Relationship Specialty Start Date End Date Javier West MD [address] [place] [address] PCP - General Family Medicine 01/11/24 Halima Moncada NP [address] [place] [address] PCP - [facility] 09/27/24 Halima Moncada NP [address] [place] [address] Nurse Practitioner Family Medicine 06/02/23 Halima Moncada NP [address] [place] [address] Nurse Practitioner Family Medicine 01/11/24 Christine Zimmerman DO [address] [place] [address] Referring Physician Neurology 09/12/24 Goals (unrecognized section [...] BE BASED ON THE PRIMARY CLINICAL RECORDS. [facility] provides no warranty or guarantee of the accuracy or completeness of information in this document.
[2024-12-04 11:06] VITALS: BP 115/78; PULSE 86; TEMP 37.2; O2SAT 98
[2024-12-04] MEDS: DEXAMETHASONE SOD PHOS 10 MG/ML VIAL INJ (11:50)
[2024-12-04] MEDS: BUPIVACAINE HCL 0.25% PF 25 MG/10 ML VIAL INJ (11:50)
[2024-12-04] MEDS: LIDOCAINE HCL 2% 400 MG/20 ML MDV 3 ML INJ (11:51)
[2024-12-04] MEDS: IOHEXOL 240 MG/ML - 10 ML VIAL INJ (11:51)
[2024-12-04 11:52] VITALS: BP 104/51; BP 109/59; PULSE 76; PULSE 86; O2SAT 96
--- NOTE | 2024-12-04 11:53 | P.ON_ITS ---
Date of procedure: 12/04/24 Pre-op diagnosis: M54.12 Post-op diagnosis: same as pre-op Procedure: Procedure: Right C4-5, 5-6 transforaminal epidural steroid injection Medications: Bupivacaine 0.25% 1cc, lidocaine 2% 1cc, dexamethasone 10mg The patient was seen and examined in the preoperative holding area.? Informed consent was obtained and placed on the chart.? Patient was brought to the medical procedure unit and placed in the prone position where a timeout was completed verifying the correct patient, procedure site, position, and planned special equipment using sterile aseptic technique.? Under direct fluoroscopic visualization a 25-gauge Quincke tipped spinal needle was advanced to the designated neural foramen where contrast dye was injected to show adequate spread.? The needle was inserted at level right c4-5. There was no evidence of vascular or adverse uptake.? Epidural spread was appreciated.? The above- mentioned injectate was then placed in a 1.5 mL aliquot preceded by negative aspiration.? The needle was removed. The needle was inserted and the procedure repeated at level right C5-6.? The surgery site was covered.? Patient was taken to the postprocedural recovery area and monitored for an appropriate length of time before found suitable for discharge in the accompaniment of a responsible adult. Anesthesia: Local Surgeon: Montana Bergeron Pathology: none sent Condition: stable Disposition: no change
[2024-12-05 11:09] VITALS: O2SAT 96
== END 2024-12-04 11:58 | disposition home or self-care (01) ==
PROVIDERS: PCP Nurse Practitioner; Visit Provider Anesthesiology
DX: M54.12 Radiculopathy, cervical region (principal)
CPT/HCPCS: 64479; 64480; J0665; J1100; Q9966

== ENCOUNTER 2024-12-21 14:21 | Outpatient (OUT) | payer BC, MEDICAID, SELFPAY ==
--- NOTE | 2024-12-21 14:46 | PM.CN ---
Consult Note: HPI Data of Consult Patient: known to practice within the last 3 years Requesting Physician: Tegan Grubbs NP Primary Care Provider: Halima Moncada NP Consult Narrative Reason for consult: f/u Narrative: 49yof who presents for assessment of chronic neck and right shoulder pain. Cervical CT consistent with mulitlevel spondylosis, though no acute fracture seen. cervical MRI consistent with central canal stenosis and multilevel foraminal stenosis. In past 3 months, has undergone >6 weeks of physical therapy, chiropractor, home exercises, stretches, oral steroids, NSAIDs, all without benefit. Uses ibuprofen, amitriptyline, tizanidine. denies adverse med side effects. failed gabapentin. NNCP at our office due to marijuana use. Previous right C4-5 C5-6 TFESI provided >50% improvement in pain and functional ability greater than 3 months however she underwent repeat right C4/5 C5/6 TFESI on 12/04/24 with no improvement. continues to have severe pain and weakness of RUE. Pain today 06/06 increasing with sitting, standing, walking, driving, and activity. cc:: CC: Tegan Grubbs NP Review of Systems ROS Status of ROS 10 or more systems reviewed and unremarkable except as noted in history and below Musculoskeletal Reports: neck pain and extremity pain [facility] Medical History (Updated 06/16/24 @ 11:44 by Garrett Arellano) Varicose veins of bilateral lower extremities with pain ?I83.813 - Varicose veins of bilateral lower extremities with pain (ICD-10) Phlebitis and thrombophlebitis of superficial vessels of right lower extremity ?I80.01 - Phlebitis and thrombophlebitis of superficial vessels of right lower extremity (ICD-10) Varicose vein of leg ?I83.90 - Asymptomatic varicose veins of unspecified lower extremity (ICD-10) Diabetes ?E11.9 - Type 2 diabetes mellitus without complications (ICD-10) PCOS (polycystic ovarian syndrome) ?E28.2 - Polycystic ovarian syndrome (ICD-10) Migraine ?G43.909 - Migraine, unspecified, not intractable, without status migrainosus (ICD-10) Hyperlipidemia ?E78.5 - Hyperlipidemia, unspecified (ICD-10) Hypothyroid ?E03.9 - Hypothyroidism, unspecified (ICD-10) HTN (hypertension) ?I10 - Essential (primary) hypertension (ICD-10) History of gastroesophageal reflux (GERD) ?Z87.19 - Personal history of other diseases of the digestive system (ICD-10) 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, unspecified (ICD-10) Depression ?F32.A - Depression, unspecified (ICD-10) Chronic sinusitis ?J32.9 - Chronic sinusitis, unspecified (ICD-10) Chronic fatigue syndrome with fibromyalgia ?G93.32 - Myalgic encephalomyelitis/chronic fatigue syndrome (ICD-10) ?M79.7 - Fibromyalgia (ICD-10) Surgical History (Updated 06/19/24 @ 11:39 by Garrett Arellano) S/P sclerotherapy of varicose veins ?Z98.890 - Other specified postprocedural states (ICD-10) ?Z86.79 - Personal history of other diseases of the circulatory system (ICD-10) Status post laser ablation of incompetent vein ?Z98.890 - Other specified postprocedural states (ICD-10) History of vein stripping ?Z98.890 - Other specified postprocedural states (ICD-10) H/O gastric sleeve ?Z90.3 - Acquired absence of stomach [part of] (ICD-10) Hx of cholecystectomy ?Z90.49 - Acquired absence of other specified parts of digestive tract (ICD-10) Meds Home Medications and Allergies Home Medications ?Medication ?Instructions ?Recorded ?Confirmed ?Type atorvastatin 10 mg tablet 10 mg PO QAM 01/11/24 12/04/24 History cetirizine 10 mg tablet 10 mg PO DAILY 01/11/24 12/04/24 History levothyroxine 50 mcg tablet 50 mcg PO QAM 01/11/24 12/04/24 History lisinopril 2.5 mg tablet 2.5 mg PO DAILY 01/11/24 12/04/24 History minocycline 100 mg capsule 100 mg PO QPM 01/11/24 12/04/24 History omeprazole 20 mg capsule,delayed 20 mg PO DAILY 01/11/24 12/04/24 History release ropinirole 0.25 mg tablet 0.25 mg PO QPM 01/11/24 12/04/24 History semaglutide 1 mg/dose (4 mg/3 mL) 1 mg subcut QWEEK 01/11/24 12/04/24 History subcutaneous pen injector (Ozempic) sertraline 100 mg tablet 200 mg PO QAM 01/11/24 12/04/24 History tizanidine 4 mg tablet 8 mg PO DAILY 01/11/24 12/04/24 History magnesium 200 mg tablet 800 mg PO DAILY 03/08/24 12/04/24 History Allergies Allergy/AdvReac Type Severity Reaction Status Date / Time No Known Drug Allergies Allergy Verified 12/04/24 11:11 Exam Constitutional Documenting provider has reviewed patient's vital signs: yes Common normals: no apparent distress, oriented x3, healthy appearing, alert and well nourished General appearance: cooperative HENMT Common normals: normocephalic, hearing grossly normal bilaterally and moist oral mucous membranes Head and scalp: normocephalic Eye Common normals: PERRL Pupil: PERRL Neck & C-Spine Common normals: full ROM General: normal visual inspection Cervical spine: cervical ROM abnormal, pain with cervical ROM and cervical spine tenderness Other: Strength 3.5/5 in RUE 5/5 in LUE positive spurlings decreased sensation right C4,5,6 Chest Common normals: inspection of chest normal Respiratory Common normals: normal respiratory effort, no retractions and no use of accessory muscles Neuro Common normals: oriented x3, CN's II-XII intact bilaterally, moves all extremities, no focal motor deficits, no sensory deficits noted and deep tendon reflexes 2+ bilaterally Sensorium/orientation: alert Motor exam: no movement abnormalities noted Psych Common normals: mental status grossly normal, thought process normal, cooperative, affect normal, speech normal and activity/motor behavior normal Speech: normal speech Thought process: normal thought process Results Additional Findings Additional findings: If on a controlled substance or opioids, I have checked an [place] report on this patient and there are no aberrancies noted in the prescribing history.??If on a controlled substance or opioid a drug screen was completed and reviewed within the last year, and if there has not been a drug screen completed we ordered one today to monitor higher risk, state monitored pain medication use. As part of providing excellent, safe, comprehensive care, the following was completed at our patient's visit: 1. A medication reconciliation and review to ensure accurate knowledge of current/active medications, including asking our patients to inform us about any [id number] medications or herbal remedies/nutritional supplements/alternative remedies. 2. A review to specifically ensure our patients have had annual screening for screening for depression, screening for tobacco use, and screening for unhealthy alcohol use. For concerning screenings had a discussion with the patient, provided patient education, and recommended follow-up with primary care provider when appropriate. If patient noted with a risk of falling, they received education on strength, gait, and balance training to prevent future risk of falling. Portions of this note may have been carried over from the previous visit and updated as appropriate. Please note this office utilizes paper charting in addition to the electronic medical record. A list of current medications, vitals, and PMH is available there as the clinical staff outside of myself do not have access to [employer] charting during the clinic day operations. As part of providing quality comprehensive care the current medications, vitals, and PMH were reviewed in the paper chart. Assessment and Plan Assessment and Plan (1) Cervical radiculopathy: Assessment and Plan: The patient has had over 3 months of moderate to severe neck and right arm pain with functional impairment and inadequate response to conservative care including NSAIDS (unless there are contraindication such as concurrent blood thinners), multiple oral or topical pain medications, and home exercise program/physical therapy.? Patient has completed >6 weeks of guided home exercise program and/or formal physical therapy program without relief of their symptoms.? I have reviewed the imaging of the cervical spine and no red flags were identified.? The imaging reveals radiographic findings consistent with cervical radiculopathy The Oswestry Disability Index was completed, and the patient scored a 58%.? The patient noted the following:?? moderate to severe pain impacting ADLs, sleep, social life, travel We discussed the risks and benefits of the procedure with the patient, and we are NOT planning on using sedation as outlined in the guidelines from Medicare unless there is a documented reason that sedation would be strongly recommended.?? ?The procedure will be completed with fluoroscopic guidance.? (2) Cervical stenosis of spinal canal: Plan repeat right C4-5 C5-6 TFESI providing no relief refer to [facility] for consultation start lyrica 75mg BID, risks vs benefits reviewed f/u 1 month to review response to medications
== END 2024-12-21 14:22 | disposition home or self-care (01) ==
LOC: PM 14:22
PROVIDERS: PCP Nurse Practitioner; Visit Provider Nurse Practitioner
DX: M54.12 Radiculopathy, cervical region (principal); M48.02 Spinal stenosis, cervical region
CPT/HCPCS: G0463

== ENCOUNTER 2025-02-08 08:52 | Outpatient (OUT) | payer BC, MEDICAID, SELFPAY ==
--- OUTSIDE RECORDS SUMMARY | 2025-02-08 09:14 | XMS_ITS | CCD ---
Author Organization [facility] Care Team Providers Care Weaving Teacher Name Role Phone Kaylie Echeverria Unavailable Mona Morin Unavailable NO FAMILY, PHYSICIAN Primary Care Provider Unava ilCHRISTIANO Lazaro Attending Provider [phone] SHANE, MONA Primary Care Unavailable MISC, DR ELIAS Attending Unavailable MISC, DR ELIAS Admitting Unavailable AICHHOLZ, SAFETY SPEC HALIMA Consulting Unavailable SHANE, MONA Consulting Unavailable SHANE, MONA Primary Care Unavailable SHANE, MONA Admitting Unavailable SHANE, MONA Attending Unavailable SHANE, MONA Primary Care Unavailable SHANE, MONA Admitting Unavailable SHANE, MONA Attending Unavailable SHANE, MONA Consulting Unavailable Priyanka Jones Unavailable Coral MANAGER SECURITY, Halima Unavailable Javier West MD Primary Care Provider [phone] Coral MANAGER SECURITY, Halima Unavailable LESTER VERDUGO Attending Unavailable SHANE, MONA Referring Unavailable SHANE, MONA Primary Care Unavailable Aiclucero MANAGER SECURITY, Halima Unavailable Christine Zimmerman DO Unavailable Coral MANAGER SECURITY, Halima Unavailable TD BERUMEN Attending Unavailable SHANE, MONA Referring Unavailable SHANE, MONA Primary Care Unavailable TD BERUMEN Attending Unavailable SHANE, MONA Referring Unavailable SHANE, MONA Primary Care Unavailable Shane NIGHT FILLER-COMMUNITY SERVICE COORDINATOR, Mona Primary Care Provide r Elyssa MCBRIDE, [place] Mosqueda Attending Unavailable Elyssa MCBRIDE, Andmedina Mosqueda Attending Unavailable Elyssa MCBRIDE, Andmedina Mosqueda Attending Unavailable NO FAMILY, PHYSICIAN Primary Care Provider Unava ilable Oumou Martinez APRN Attending Provider [phone] NO FAMILY, PHYSICIAN Primary Care Unavailable Oumou Martinez Attending Unavailable Oumou Martinez Admitting Unavailable MADDEN, SAY Referring Unavailable MADDEN, SAY Referring Unavailable MADDEN, SAY Referring Unavailable CHRISTINE ZIMMERMAN Attending Unavailable AICHHOLZ, HALIMA Attending Unavailable GILLMOR, NICOLE Attending Unavailable AICHHOLZ, HALIMA Attending Unavailable AICHHOLZ, HALIMA Attending Unavailable AICHHOLZ, HALIMA Attending Unavailable GILLMOR, NICOLE Attending Unavailable AICHHOLZ, HALIMA Attending Unavailable GILLMOR, NICOLE Attending Unavailable GILLMOR, NICOLE Referring Unavailable Allergies Allergy Classification Reported Allergen(s) Allergy Type Date of Onset Reaction(s) Facility (5 sources) Cephalexin Drug Allergy rash [facility] Other (12 sources) Cephalexin Drug Allergy rash [facility] Other (1 source) Sulfamethoxazole / Trimethoprim Drug Allergy 06-08-20 13 [facility] Repository (1 source) Cephalexin Drug Allergy 01-01-20 25 [facility] Repository (1 source) ALLERGIES NOT ON FILE; Translations: [ALLERGIES NOT ON FILE] Propensity to adverse reactions (disorder) [facility] Repository Medications Current Medications Medication Drug Class(es) Dates Sig (Normalized) Sig (Original) [id number] 200 actuat albuterol 0.09 mg/actuat metered dose [...] 4-6 hours for 14 days Aug, Active Albuterol Sulfate 90 mcg/actuation HFA aerosol inhaler (1 source) Start: 12-31-2024 Albuterol Sulfate 90 mcg/actuation HFA aerosol inhaler Active 2 INH INHALATION EVERY 4-6 HOURS as needed for shortness of breath or wheezing 6.7 14 December 31, 2024 12:00am amitriptyline hydrochloride 50 mg oral tablet (20 sources) Tricyclic Antidepressant Start: 12-31-2024 take 1 tablet by mouth once daily at bedtime Amitriptyline 50 mg tablet Active 50 MG PO Daily at bedtime December 31, 2024 12:00am Start: 07-24-2024 take 1 tablet by alexandria th once daily, then take 8 tablets by [...] a day for 7 days Apr, Active amoxicillin 875 mg / clavulanate 125 mg oral tablet (2 sources) Penicillin-class Antibacterial Start: 01-22-2025 End: 02-01-2025 take 1 tablet by mouth in the morning amoxicillin-clavu lanate (Augmentin) 875-125 MG tablet Indications: Bronchitis with asthma, subacute (CMS/HCC) Take 1 tablet (875 mg) by mouth in the morning and 1 tablet (875 mg) before bedtime. Do all this for 10 days. 20 tablet 01/22/2025 02/01/2025 Active atorvastatin 10 mg oral tablet (20 sources) HMG-CoA Reductase Inhibitor Start: 02-23-2024 End: 02-21-2025 take 1 tablet by mouth in the evening atorvastatin (Lipitor) 10 MG tablet Indications: Type 2 diabetes mellitus without complication, without long-term current use of insulin Take 1 tablet (10 mg) by mouth in the evening 30 tablet 5 01/22/2025 02/21/2025 Active benzonatate 200 mg oral capsule (3 sources) Non-narcotic Antitussive Start: 01-22-2025 End: 01-29-2025 take 1 capsule by mouth three times daily as needed for cough benzonatate (Tessalon) 200 MG capsule Indications: Bronchitis with asthma, subacute (CMS/HCC) Take 1 capsule (200 mg) by mouth 3 (three) times a day as needed for cough for up to 7 days Do not crush or chew. 21 capsule 01/22/2025 01/29/2025 Active Start: 09-04-2021 take 1 capsule by mo uth three times daily as needed Tessalon Perles 100 MG 1 capsule as needed Orally Three times a day for 7 days Aug, Active benzoyl peroxide 0.05 mg/mg / clindamycin phosphate 0.012 mg/mg topical gel (2 sources) Lincosamide Antibacterial Start: 10-25-2023 End: 05-25-2024 clindamycin-benzoyl peroxide (Duac) 1.2-5% gel apply to face every morning 10/25/2023 05/25/2024 Discontinued (Therapy completed) biotin 1 mg oral capsule (20 sources) biotin 1 MG caps ule Take by mouth Active brexpiprazole 0.5 mg [...] oral solution (2 sources) alpha-Adrenergic Agonist, Uncompetitive K-qqlebb-R-aspartate Receptor Antagonist, Sigma-1 Agonist Start: 08-31-2021 take 10 mL by mouth every six hours Odnccomay-Iyfrgqlo-YY 30-2-10 MG/5ML 10 mL Orally every 6 [...] mg oral tablet (20 sources) l-Thyroxine Start: 12-31-2024 take 1 tablet by mouth once daily Levothyroxine 50 mcg tablet Active 50 MCG PO Daily December 31, 2024 12:00am Start: 09-13-2023 End: 02-21-2025 take 1 tablet by mouth before mealtime levothyroxine (Synthroid, Levoxyl) 50 MCG tablet Indications: Hypothyroidism, unspecified type (CMS/HCC) Take 1 tablet (50 mcg) by mouth in the morning. Take before meals. 30 tablet 5 01/22/2025 02/21/2025 Active lisinopril 2.5 mg oral tablet (20 [...] tablet (20 sources) Nonsteroidal Anti-inflammatory Drug Start: 12-31-2024 take 1 tablet by mouth once daily Meloxicam 15 mg tablet Active 15 MG PO Daily December 31, 2024 12:00am Start: 07-24-2024 take 1 tablet by alexandria th once daily at mealtime meloxicam (MOBIC) 15 [...] oral tablet (12 sources) Biguanide Start: 02-03-2022 methylPREDNISolone 4 mg oral tablet (14 sources) Corticosteroid Start: 12-31-2024 take 1 tablet by mouth once Methylprednisolone (Medrol (Oryce)) 4 mg tablets,dose pack Active 0 PO per package directions December 31, 2024 12:00am PO PER PKG DIR Start: 11-17-2022 methylPREDNISo lone 4 MG as directed Orally Once a day for 6 days Oct, Not-Taking Start: 09-29-2021 take 4 mg by mouth o nce daily Start: 08-31-2021 Medrol (Royce) 4 MG as directed Orally for daily dose take half with breakfast half with dinner for 6 days Aug, Active minocycline 100 mg oral capsule (2 sources) [...] sources) Proton Pump Inhibitor Start: 07-02-2020 End: 02-21-2025 take 1 capsule by mouth before mealtime omeprazole (PriLOSEC) [address] capsule Indications: Gastroesophageal reflux disease without esophagitis Take 1 capsule (20 mg) by mouth in the morning. Take before meals. 30 capsule 5 01/22/2025 02/21/2025 Active Omeprazole 20 mg capsule,delayed release(DR/EC) (2 sources) Start: 12-31-2024 take 1 capsule by mouth once daily Omeprazole 20 mg capsule,delayed release(DR/EC) Active 20 MG PO Daily December 31, 2024 12:00am ondansetron 4 mg oral tablet (20 sources) [...] drop(s) into the eye(s) three times daily pregabalin 75 mg oral capsule (5 sources) Start: 12-21-2024 take 1 capsule by mouth in the morning pregabalin (Lyrica) 75 MG capsule Take 75 mg by mouth in the morning and 75 mg before bedtime. 12/21/2024 Active rimegepant 75 mg disintegrating oral tablet (20 sources) Start: 12-31-2024 Rimegepant (Nurtec Odt) 75 mg tablet,disinteg rating Active 75 MG PO Every 48 hours December 31, 2024 12:00am Start: 09-12-2024 Rimegepant Sul fate (Nurtec) 75 MG tablet [...] tablet 2 06/20/2024 07/25/2024 Discontinued (Therapy completed) Semaglutide (2 sources) Start: 12-31-2024 inject 1 mg by subcutaneous injection every week Semaglutide (Ozempic) 1 mg/dose (4 mg/3 mL) pen injector Active 1 MG SUBCUT every week December 31, 2024 12:00am semaglutide (Ozempic, 1 MG/DOSE,) 4 MG/3ML solution pen-injector (20 sources) Start: 01-22-2025 End: 02-19-2025 inject 1 mg by subcutaneous injection every week semaglutide (Ozempic, 1 MG/DOSE,) 4 MG/3ML solution pen-injector Indications: Type 2 diabetes mellitus without complication, without long-term current use of insulin Inject 1 mg under the skin 1 (one) time per week for 28 days 3 mL 5 01/22/2025 02/19/2025 Active Start: 07-10-2024 End: 01-22-2025 inject 1 mg by subcutaneous injection every week semaglutide (Ozempic, 1 MG/DOSE,) 4 MG/3ML solution pen-injector Indications: Type 2 diabetes mellitus without complication, without long-term current use of insulin Inject 1 mg under the skin 1 (one) time per week for 28 days 3 mL 5 07/10/2024 01/22/2025 Discontinued (Reorder) Start: 07-10-2024 inject 1 mg by subcu taneous injection every week semaglutide (Ozempic, 1 MG/DOSE,) 4 MG/3ML solution pen-injector Indications: Type 2 diabetes mellitus without complication, without long-term current use of insulin Inject 1 mg under the skin 1 (one) time per week for 28 days 3 mL 5 07/10/2024 Active Start: 07-10-2024 inject 1 mg by subcu taneous injection [...] Start: 10-05-2023 take 2 tablets by mouth once daily Sertraline 100 mg tablet Active 200 MG PO Daily December 31, 2024 12:00am End: 07-25-2024 take 1 tablet by mouth [...] Toradol per 15 mg Jul, 30 mg rOPINIRole 1 mg oral tablet (20 sources) [...] Problem Classification Problem Date Documented Date Episodic/Chronic Acute bronchitis (4 sources) Subacute bronchitis; Translations: [Acute bronchitis, unspecified] Onset: 01-22-2025 01-22-2025 Episodic Allergic reactions (17 sources) Atopic dermatitis; Translations: [...] Chronic Chronic obstructive pulmonary disease and bronchiectasis (4 sources) Bronchitis, not specified as acute or chronic; Translations: [Bronchitis] Onset: 08-31-2021 Resolved: 08-31-2021 Episodic Diabetes mellitus [...] 09-10-2023 09-10-2023 Chronic Other connective tissue disease (20 sources) Fibromyalgia; Translations: [Fibromyalgia] Onset: 09-10-2023 09-10-2023 Episodic Other connective tissue disease (2 sources) Fibromyalgia; [...] legs syndrome] Onset: 02-02-2024 02-02-2024 Chronic Other lower respiratory disease (2 sources) Dyspnea; Translations: [Shortness of breath] 12-31-2024 Episodic Other lower respiratory disease (1 source) Shortness of breath; Translations: [Shortness of breath] Onset: 12-31-2024 Episodic Other nervous system disorders (20 sources) Carpal [...] obesity; Translations: [Obesity, unspecified] Onset: 10-26-2023 Resolved: 01-22-2025 02-07-2024 Chronic Other nutritional; endocrine; and metabolic disorders (5 sources) Obesity caused by energy imbalance; Translations: [Class 1 obesity due to excess calories with serious comorbidity in adult] Onset: 01-22-2025 01-22-2025 Chronic Other skin disorders (17 sources) Hirsutism; [...] Resolved: 05-25-2024 05-25-2024 Episodic Sprains and strains (20 sources) [...] Test Name Value Interpretation Reference Range Facility HbA1c (Bld) [Mass fraction]o n 01-22-2025 Interpretation and review of laboratory results Normal [facility] - Hematology and Cell countson 01-22-2025 HbA1c (Bld) [Mass fraction] 5.60 % [facility] X-ray reportOrdered By: Iain Martinez on 12-31-2024 Study report [facility] Main [address] [address] XRay Report Signed Patient: Tatiana Sepulveda MR# : [id number] : 1975 Acct:[id number] Age/Sex: 49 / F ADM Date: 2 5 Loc: XDUCLY Room: Type: REG CLI Attending Dr: Oumou Martinez NIGHT FILLER Copies to: Oumou Martinez APRN~ Ordering Provider: Oumou Martinez APRN Date of Service: 12/31/24 XR/XR chest 2V*: COUGH PA AND LATERAL CHEST: CLINICAL HISTORY: Dry cough, fatigue, body COMPARISON: None FINDINGS: Unremarkable cardiomediastinal silhouette. Lungs are clear. No effusion or pneumothorax XR/XR chest 2V* IMPRESSION: NO ACUTE CARDIOPULMONARY ABNORMALITY. Impression dictated by: Roverto Martinez M.D.12/31/2024 10:02 AM Dictation Location: [facility]29 Transcribed By: DALTON 12/31/24 1002 Dictated By: Roverto Martinez MD 12/31/24 0959 Signed By: 12/31/[address] [place] [address] Work Phone: XR chest 2V*on 12-31-2024 XR chest 2V* [facility] Main [address] [address] XRay Report Signed Patient: Tatiana Sepulveda MR#: [id number] : 1975 Acct:[id number] Age/Sex: 49 / F ADM Date: 12/31/24 Loc: XDUCLY Room: Type: REG CLI Attending Dr: Oumou Martinez NIGHT FILLER Copies to: Oumou Martinez APRN Ordering Provider: Oumou Martinez APRN Date of Service: 12/31/24 XR/XR chest 2V*: COUGH PA AND LATERAL CHEST: CLINICAL HISTORY: Dry cough, fatigue, body COMPARISON: None FINDINGS: Unremarkable cardiomediastinal silhouette. Lungs are clear. No effusion or pneumothorax XR/XR chest 2V* IMPRESSION: NO ACUTE CARDIOPULMONARY ABNORMALITY. Impression dictated by: Roverto Martinez M.D.12/31/2024 10:02 AM Dictation Location: [place] [address] Transcribed By: [facility] 12/31/24 1002 Dictated By: Roverto Martinez MD 12/31/24 0959 Signed By: 12/31/24 1002 Normal [facility] MR HEAD/BRAIN WO CONon [address] [place] [address] Magnetic Resonance Report Signed Patient: TATIANA SEPULVEDA MR#: [id number] : 1975 Acct:[id number] Age/Sex: 48 / F ADM Date: 10/27/24 Loc: MRI Attending Dr: Christine Zimmerman D.O. Ordering Physician: Christine Zimmerman D.O. Date of Service: 10/27/24 Procedure(s): MR head/brain wo con Accession Number(s): [id number] cc: Halima Moncada MANAGER SECURITY; Christine Zimmerman D.O. [place] [address] Patient Name: TATIANA SEPULVEDA MRN: [id number] date: 1975 Sex: F Assigned Patient Location: MRI Current Patient Location: MRI Accession/Order Number: [id number] Exam Date: 10/27/2024 08:53 Report Date: 10/27/2024 [...] Signed By: 10/27/24 1742 DD/ 1739 TD/TT: Safekeeping Clerk: [facility] Radiology, Radiologist, MD - 10/27/2024 [place] [address] Magnetic Resonance Report Signed Patient: TATIANA SEPULVEDA MR#: [id number] : 1975 Acct:[id number] Age/Sex: 48 / F ADM Date: 10/27/24 Loc: MRI Attending Dr: Christine Zimmerman D.O. Ordering Physician: Christine Zimmerman D.O. Date of Service: 10/27/24 Procedure(s): MR head/brain wo con Accession Number(s): [id number] cc: Halima Moncada NP; Christine Zimmerman D.O. The [place] [id number] Patient Name: TATIANA SEPULVEDA MRN: [facility]:[id number] date: 1975 Sex: F Assigned Patient Location: MRI Current Patient Location: MRI Accession/Order Number: [id number] Exam Date: 10/27/2024 08:53 Report Date: 10/27/2024 [...] M.D. Signed By: 10/27/241741 DD/ 38 TD/TT: Safekeeping Clerk: [facility] [employer] [facility] Study observation (narrative) [facility] [employer] MR HEAD/BRAIN WO CONOrdered By: Radiologist Radiology on 10-27-2024 [place] Work Phone: [facility] HEMOGLOBIN A1Con 11-12-2 024 Glucose [Mass/Vol] 111 mg/dL [facility] HbA1c (Bld) [Mass fraction] 5.5 % 4.5 - 6.2 % [facility] Comment on above: ADA RECOMMENDED LIMI T 4.0 - 6.0 ADA THERAPEUTIC TARGET < 7.0 ACTION SUGGESTED > 7.0 [facility] [place] IGP,APTIMA HPV,AGE GDLNon AGE GDLN ACOG TESTING Note . [facility] [employer] Comment on above: TESTS RESULT FLAG UN ITS REF RANGE LAB Clinician Provided Cytology Information Source.............Cervix;Endocervix No. of containers..01 ThinPrep Vial Age Algo ACOG Prudence... 30-65 01 FLAG LEGEND: L-Low Normal,H-High Normal,LL-Alert Low,HH-Alert High <-Panic Low,>-Panic High,A-Abnormal,AA-Critical Abnormal Performed at: 01 =[address] [address] Maren Peña MD, HPV APTIMA Negative Negative [facility] Comment on above: This nucleic acid am plification test detects fourteen high- risk HPV types (16,18,31,33,35,39,45,51,52,56,58,59,66,68) without differentiation. Performed at: =[facility] [employer] [id number] Corn Cutter: Maren Peña MD, Phone: [phone] Performed at: [address] [id number] Corn Cutter: Maren Peña MD, Phone: [phone] IGP, APTIMA HPV, RFX 16/18,45 Note . [facility] Comment on above: TESTS RESULT FLAG UN ITS REF RANGE LAB DIAGNOSIS: 02 NEGATIVE FOR INTRAEPITHELIAL LESION OR MALIGNANCY. Specimen adequacy: 02 Satisfactory for evaluation. Endocervical and/or squamous metaplastic cells (endocervical component) are present. Performed by: 02 Katie Hernandez, Wheel Roller (ASCP) . 02 Note: Note 02 The [...] Low,>-Panic High,A-Abnormal,AA-Critical Abnormal Performed at: [address] [address] Maren Peña MD, CERVIX ENDOCERVIX [facility] ALL THYROID STIM HORMONEon 0 05-26-2024 TSH Qn 3.022 m[IU]/L [facility] No Panel Informationon 05-26 [facility]H PREG QUANT HCGon 05-26- 024 HCG QUANTITATIVE <1 mIU/mL [facility] Comment on above: 5-50 0.2-1 WEEK 50-500 1-2 WEEKS 100-5,000 2-3 WEEKS 500-10,000 3-4 WEEKS 1,000-50,000 4-5 WEEKS 10,000-100,000 5-6 WEEKS 15,000-200,000 6-8 WEEKS 10,000-100,000 2-3 MONTHS Quick Strepon 05-03-2023 S. pyogenes Org specific cx Ql (Throat) Negative [employer] Other Quick Strep [employer] Other INSULINon 01-26-2023 Insulin 21.3 uIU/mL Normal 2.6-24.9 [facility] Comment on above: Performed By: #### I NSULIN #### [facility] [address] [place] [address] Dr. Yvan Manzano CORTISOLon 01-23-2023 Cortisol 11.2 ug/dL Normal 6.2-19.4 [facility] Comment on above: Result Comment: [place] Note: The reference interval and flagging for this test is for an AM collection. If this is a PM collection please use: Cortisol PM: 2.3-11.9 [facility] also offers: 909460: Cortisol- AM 989759: Cortisol- PM Performed By: #### C BC #### [facility] [address] [place] [address] Dr. Yvan Manzano CBC AUTO DIFFon 01-22-2023 BASO # 0.1 103/ul Normal 0.0-0.1 [facility] Comment on above: Performed By: #### C BC #### [facility] [address] [place] [address] Dr. Yvan Manzano Basophils/100 WBC (Bld) 0.9 % Normal 0.2-2.0 [facility] Comment on above: Performed By: #### C BC #### [facility] [address] [place] [address] Dr. Yvan Manzano EO # 0.3 103/ul Normal 0.0-0.7 [facility] Comment on above: Performed By: #### C BC #### [facility] [address] [place] [address] Dr. Yvan Manzano Eosinophils/100 WBC (Bld) 5.7 % Normal 0.9-7.0 [facility] Comment on above: Performed By: #### C BC #### [facility] [address] [place] [address] Dr. Yvan Manzano Erythrocyte distribution width (RBC) [Ratio] 14.6 % Normal 11.0-15.0 [facility] Comment on above: Performed By: #### C BC #### [facility] [address] [place] [address] Dr. Yvan Manzano Hematocrit (Bld) [Volume fraction] 36.8 % Normal 36.0-48.0 [facility] Comment on above: Performed By: #### C BC #### [facility] [address] [place] [address] Dr. Yvan Manzano Hemoglobin (Bld) [Mass/Vol] 11.4 g/dL Critically low 12.0-16.0 [facility] Comment on above: Performed By: #### C BC #### [facility] [address] [place] [address] Dr. Yvan Manzano IG # 0.02 10e3/ul Normal 0.00-0.03 [facility] Comment on above: Performed By: #### C BC #### [facility] [address] [place] [address] Dr. Yvan Manzano IG % 0.3 % Normal 0.0-0.5 [facility] Comment on above: Performed By: #### C BC #### [facility] [address] [place] [address] Dr. Yvan Manzano LYMPH # 1.5 103/ul Normal 1.2-3.8 [facility] Comment on above: Performed By: #### C BC #### [facility] [address] [place] [address] Dr. Yvan Manzano Lymphocytes/100 WBC (Bld) 25.3 % Normal 20.5-60.0 [facility] Comment on above: Performed By: #### C BC #### [facility] [address] [place] [address] Dr. Yvan Manzano MANUAL DIFF REQ NO Normal [facility] Comment on above: Performed By: #### C BC #### [facility] [address] [place] [address] Dr. Yvan Manzano MCH (RBC) [Entitic mass] 25.2 pg Critically low 26.7-34.0 [facility] Comment on above: Performed By: #### C BC #### [facility] [address] [place] [address] Dr. Yvan Manzano MCHC (RBC) [Mass/Vol] 31.0 g/dL Normal 29.9-35.2 [facility] Comment on above: Performed By: #### C BC #### [facility] [address] [place] [address] Dr. Yvan Manzano MCV (RBC) [Entitic vol] 81.4 fL Normal 81.0-99.0 [facility] Comment on above: Performed By: #### C BC #### [facility] [address] [place] [address] Dr. Yvan Manzano MONO # 0.4 103/ul Normal 0.3-0.8 [facility] Comment on above: Performed By: #### C BC #### [facility] [address] [place] [address] Dr. Yvan Manzano Monocytes/100 WBC (Bld) 7.7 % Normal 1.7-12.0 [facility] Comment on above: Performed By: #### C BC #### [facility] [address] [place] [address] Dr. Yvan Manzano NEUT # 3.5 103/ul Normal 1.4-6.5 [facility] Comment on above: Performed By: #### C BC #### [facility] [address] [place] [address] Dr. Yvan Manzano Neutrophils/100 WBC (Bld) 60.1 % Normal 43.0-75.0 [facility] Comment on above: Performed By: #### C BC #### [facility] [address] [place] [address] Dr. Yvan Manzano Platelet mean volume (Bld) [Entitic vol] 8.8 fL Critically low 9.5-13.5 [facility] Comment on above: Performed By: #### C BC #### [facility] [address] [place] [address] Dr. Yvan Manzano PLT 347 103/ul Normal 150-450 [facility] Comment on above: Performed By: #### C BC #### [facility] [address] [place] [address] Dr. Yvan Manzano RBC 4.52 106/ul Normal 4.20-5.40 [facility] Comment on above: Performed By: #### C BC #### [facility] [address] [place] [address] Dr. Yvan Manzano WBC 5.7 103/ul Normal 4.0-11.0 [facility] Comment on above: Performed By: #### C BC #### [facility] [address] [place] [address] Dr. Yvan Manzano FREE T4on 01-22-2023 Free T4 [Mass/Vol] 0.84 ng/dL Normal 0.76-1.46 [facility] Comment on above: Performed By: #### F T4 #### [facility] [address] [place] [address] Dr. Yvan Manzano LIPID PROFILEon 01-22-2023 CHOL-HDL RATIO NORM SEE BELOW Normal [facility] Comment on above: Result Comment: 3.3 - 4.4 LOW RISK 4.4 - 7.1 AVERAGE RISK 7.1 - 11.0 MODERATE RISK >11.0 HIGH RISK Performed By: #### T SH, LIPID #### [facility] [address] [place] [address] Dr. Yvan Manzano Cholesterol [Mass/Vol] 264 mg/dL Critically high <=200 [facility] Comment on above: Performed By: #### T SH, LIPID #### [facility] [address] [place] [address] Dr. Yvan Manzano Cholesterol in HDL [Mass/Vol] 52 mg/dL Normal 40-60 [facility] Comment on above: Performed By: #### T SH, LIPID #### [facility] [address] [place] [address] Dr. Yvan Manzano Cholesterol in LDL [Mass/Vol] 173.6 mg/dL Normal [facility] Comment on above: Performed By: #### T SH, LIPID #### [facility] [address] [place] [address] Dr. Yvan Manzano Cholesterol.total/C holesterol in HDL [Mass ratio] 5.1 {ratio} Normal [facility] Comment on above: Performed By: #### T SH, LIPID #### [facility] [address] [address] [address] Yvan Manzano HDL NORMAL > or = 60 mg/dl - LO W CARDIOVASCULAR RISK <40 mg/dl - HIGH CARDIOVASCULAR RISK Normal [facility] Comment on above: Performed By: #### T SH, LIPID #### [facility] [address] [address] [address] Yvan Manzano LDL CALC NORMAL SEE BELOW Normal [facility] Comment on above: Result Comment: <100 mg/dl OPTIMAL 100 - 129 mg/dl NEAR OR ABOVE OPTIMAL 130 - 159 mg/dl BORDERLINE HIGH 160 - 189 mg/dl HIGH >190 mg/dl VERY HIGH Performed By: #### T SH, LIPID #### [facility] [address] [address] [address] Yvan Manzano Triglyceride [Mass/Vol] 192 mg/dL Critically high <=150 [facility] Comment on above: Performed By: #### T SH, LIPID #### [facility] [address] [address] [address] Yvan Manzano VLDL CALC 38.4 mg/dL Normal [facility] Comment on above: Performed By: #### T SH, LIPID #### [facility] [address] [address] [address] Yvan Manzano TSHon 01-22-2023 TSH 5.749 uIU/mL Critically high 0.358-3.740 [facility] Comment on above: Performed By: #### T SH, LIPID #### [facility] [address] [address] [address] Yvan Manzano GLYCOHEMOGLOBIN A1Con 2022 ADA RECOMMENDATION SEE BELOW Normal [facility] Comment on above: Result Comment: ADA RECOMMENDED LIMIT 4.0 - 6.0 ADA THERAPEUTIC TARGET < 7.0 ACTION SUGGESTED > 7.0 Performed By: #### A 1C #### [facility] [address] [place] [address] Dr. Yvan Manzano Glucose [Mass/Vol] 137 mg/dL Normal [facility] Comment on above: Performed By: #### A 1C #### [facility] [address] [place] [address] Dr. Yvan Manzano HbA1c (Bld) [Mass fraction] 6.4 % Critically high 4.5-6.2 [facility] Comment on above: Performed By: #### A 1C #### [facility] [address] [place] [address] Dr. Yvan Manzano PROF 14(COMP METB)on 023 Albumin [Mass/Vol] 3.4 g/dL Normal 3.4-5.0 [facility] Comment on above: Performed By: #### C MP #### [facility] [address] [place] [address] Dr. Yvan Manzano Albumin/Globulin [Mass ratio] 0.9 {ratio} Normal [facility] Comment on above: Performed By: #### C MP #### [facility] [address] [place] [address] Dr. Yvan Manzano ALP [Catalytic activity/Vol] 74 U/L Normal 46-116 [facility] Comment on above: Performed By: #### C MP #### [facility] [address] [place] [address] Dr. Yvan Manzano ALT [Catalytic activity/Vol] 25 U/L Normal 14-59 [facility] Comment on above: Performed By: #### C MP #### [facility] [address] [place] [address] Dr. Yvan Manzano Anion gap [Moles/Vol] 9.4 mmol/L Normal [facility] Comment on above: Performed By: #### C MP #### [facility] [address] [place] [address] Dr. Yvan Manzano AST [Catalytic activity/Vol] 17 U/L Normal 15-37 [facility] Comment on above: Performed By: #### C MP #### [facility] [address] [place] [address] Dr. Yvan Manzano Bilirubin [Mass/Vol] 0.1 mg/dL Critically low 0.2-1.0 [facility] Comment on above: Performed By: #### C MP #### [facility] [address] [address] [address] Yvan Manzano Calcium [Mass/Vol] 9.2 mg/dL Normal 8.5-10.1 [facility] Comment on above: Performed By: #### C MP #### [facility] [address] [address] [address] Yvan Manzano Chloride [Moles/Vol] 101 mmol/L Normal 98-107 [facility] Comment on above: Performed By: #### C MP #### [facility] [address] [address] [address] Yvan Manzano CO2 [Moles/Vol] 30.4 mmol/L Normal 21.0-32.0 [facility] Comment on above: Performed By: #### C MP #### [facility] [address] [place] [address] Dr. Yvan Manzano Creatinine [Mass/Vol] 0.71 mg/dL Normal 0.55-1.02 [facility] Comment on above: Performed By: #### C MP #### [facility] [address] [place] [address] Dr. Yvan Manzano EGFR-AF SOMALI >60 Normal >=60 [facility] Comment on above: Performed By: #### C MP #### [facility] [address] [place] [address] Dr. Yvan Manzano EGFR-NON AF SOMALI >60 Normal >=60 [facility] Comment on above: Performed By: #### C MP #### [facility] [address] [address] [address] Yvan Manzano Globulin (S) [Mass/Vol] 4.0 g/dL Normal [facility] Comment on above: Performed By: #### C MP #### [facility] [address] [place] [address] Dr. Yvan Manzano Glucose [Mass/Vol] 138 mg/dL Critically high 74-106 [facility] Comment on above: Performed By: #### C MP #### [facility] [address] [address] [address] Yvan Manzano Potassium [Moles/Vol] 3.8 mmol/L Normal 3.5-5.1 [facility] Comment on above: Performed By: #### C MP #### [facility] [address] [place] [address] Dr. Yvan Manzano Protein [Mass/Vol] 7.4 g/dL Normal 6.4-8.2 [facility] Comment on above: Performed By: #### C MP #### [facility] [address] [address] [address] Yvan Manzano Sodium [Moles/Vol] 137 mmol/L Normal 136-145 [facility] Comment on above: Performed By: #### C MP #### [facility] [address] [place] [address] Dr. Yvan Manzano Urea nitrogen [Mass/Vol] 13.0 mg/dL Normal 7.0-18.0 [facility] Comment on above: Performed By: #### C MP #### [facility] [address] [place] [address] Dr. Yvan Manzano Urea nitrogen/Creatinine [Mass ratio] 18.3 mg/mg Normal [facility] Comment on above: Performed By: #### C MP #### [facility] [address] [place] [address] Dr. Yvan Manzano LIPID PROFILEon 03-31-2022 CHOL-HDL RATIO NORM SEE BELOW Normal [facility] Comment on above: Result Comment: 3.3 - 4.4 LOW RISK 4.4 - 7.1 AVERAGE RISK 7.1 - 11.0 MODERATE RISK >11.0 HIGH RISK Performed By: #### C MP, LIPID #### [facility] [address] [place] [address] Dr. Yvan Manzano Cholesterol [Mass/Vol] 229 mg/dL Critically high <=200 [facility] Comment on above: Performed By: #### C MP, LIPID #### [facility] [address] [place] [address] Dr. Yvan Manzano Cholesterol in HDL [Mass/Vol] 51 mg/dL Normal 40-60 [facility] Comment on above: Performed By: #### C MP, LIPID #### [facility] [address] [address] [address] Yvan Manzano Cholesterol in LDL [Mass/Vol] 150.4 mg/dL Normal [facility] Comment on above: Performed By: #### C MP, LIPID #### [facility] [address] [address] [address] Yvan Manzano Cholesterol.total/C holesterol in HDL [Mass ratio] 4.5 {ratio} Normal [facility] Comment on above: Performed By: #### C MP, LIPID #### [facility] [address] [address] [address] Yvan Manzano HDL NORMAL > or = 60 mg/dl - LO W CARDIOVASCULAR RISK <40 mg/dl - HIGH CARDIOVASCULAR RISK Normal [facility] Comment on above: Performed By: #### C MP, LIPID #### [facility] [address] [place] [address] Dr. Yvan Manzano LDL CALC NORMAL SEE BELOW Normal [facility] Comment on above: Result Comment: <100 mg/dl OPTIMAL 100 - 129 mg/dl NEAR OR ABOVE OPTIMAL 130 - 159 mg/dl BORDERLINE HIGH 160 - 189 mg/dl HIGH >190 mg/dl VERY HIGH Performed By: #### C MP, LIPID #### [facility] [address] [place] [address] Dr. Yvan Manzano Triglyceride [Mass/Vol] 138 mg/dL Normal <=150 [facility] Comment on above: Performed By: #### C MP, LIPID #### [facility] [address] [place] [address] Dr. Yvan Manzano VLDL CALC 27.6 mg/dL Normal [facility] Comment on above: Performed By: #### C MP, LIPID #### [facility] [address] [address] [address] Yvan Manzano MICROALB CREAT RATIO RANDOMo n 03-31-2022 mALB 1.4 mg/L Normal <=30.0 [facility] Comment on above: Performed By: #### M CRR #### [facility] [address] [place] [address] Dr. Yvan Manzano MALB CR RATIO 6.0 mg/g Normal 0.0-29.9 [facility] Comment on above: Performed By: #### M CRR #### [facility] [address] [address] [address] Yvan Manzano MALB CR RATIO RANGE SEE BELOW Normal [facility] Comment on above: Result Comment: NO M ICROALBUMINURIA 0-29 MG/G CLINICAL MICROALBUMINURIA 30-300 MG/G MACROALBUMINURIA >300 MG/G Performed By: #### M CRR #### [facility] [address] [address] [address] Yvan Manzano URINE CREAT 232.88 mg/dL Normal 20.00-300.00 [facility] Comment on above: Performed By: #### M CRR #### [facility] [address] [address] [address] Yvan Manzano PROF 14(COMP METB)on 022 Albumin [Mass/Vol] 3.6 g/dL Normal 3.4-5.0 [facility] Comment on above: Performed By: #### C MP, LIPID #### [facility] [address] [address] [address] Yvan Manzano Albumin/Globulin [Mass ratio] 0.9 {ratio} Normal [facility] Comment on above: Performed By: #### C MP, LIPID #### [facility] [address] [address] [address] Yvan Manzano ALP [Catalytic activity/Vol] 63 U/L Normal 46-116 [facility] Comment on above: Performed By: #### C MP, LIPID #### [facility] [address] [address] [address] Yvan Manzano ALT [Catalytic activity/Vol] 33 U/L Normal 14-59 [facility] Comment on above: Performed By: #### C MP, LIPID #### [facility] [address] [address] [address] Yvan Manzano Anion gap [Moles/Vol] 11.7 mmol/L Normal [facility] Comment on above: Performed By: #### C MP, LIPID #### [facility] [address] [address] [address] Yvan Manzano AST [Catalytic activity/Vol] 23 U/L Normal 15-37 [facility] Comment on above: Performed By: #### C MP, LIPID #### [facility] [address] [address] [address] Yvan Manzano Bilirubin [Mass/Vol] 0.2 mg/dL Normal 0.2-1.0 [facility] Comment on above: Performed By: #### C MP, LIPID #### [facility] [address] [address] [address] Yvan Manzano Calcium [Mass/Vol] 9.5 mg/dL Normal 8.5-10.1 [facility] Comment on above: Performed By: #### C MP, LIPID #### [facility] [address] [place] [address] Dr. Yvan Manzano Chloride [Moles/Vol] 102 mmol/L Normal 98-107 [facility] Comment on above: Performed By: #### C MP, LIPID #### [facility] [address] [address] [address] Yvan Manzano CO2 [Moles/Vol] 28.0 mmol/L Normal 21.0-32.0 [facility] Comment on above: Performed By: #### C MP, LIPID #### [facility] [address] [place] [address] Dr. Yvan Manzano Creatinine [Mass/Vol] 0.71 mg/dL Normal 0.55-1.02 [facility] Comment on above: Performed By: #### C MP, LIPID #### [facility] [address] [place] [address] Dr. Yvan Manzano EGFR-AF SOMALI >60 Normal >=60 [facility] Comment on above: Performed By: #### C MP, LIPID #### [facility] [address] [place] [address] Dr. Yvan Manzano EGFR-NON AF SOMALI >60 Normal >=60 [facility] Comment on above: Performed By: #### C MP, LIPID #### [facility] [address] [address] [address] Yvan Manzano Globulin (S) [Mass/Vol] 4.0 g/dL Normal [facility] Comment on above: Performed By: #### C MP, LIPID #### [facility] [address] [place] [address] Dr. Yvan Manzano Glucose [Mass/Vol] 87 mg/dL Normal 74-106 [facility] Comment on above: Performed By: #### C MP, LIPID #### [facility] [address] [address] [address] Yvan Manzano Potassium [Moles/Vol] 3.7 mmol/L Normal 3.5-5.1 [facility] Comment on above: Performed By: #### C MP, LIPID #### [facility] [address] [place] [address] Dr. Yvan Manzano Protein [Mass/Vol] 7.6 g/dL Normal 6.4-8.2 [facility] Comment on above: Performed By: #### C MP, LIPID #### [facility] [address] [place] [address] Dr. Yvan Manzano Sodium [Moles/Vol] 138 mmol/L Normal 136-145 [facility] Comment on above: Performed By: #### C MP, LIPID #### [facility] [address] [place] [address] Dr. Yvan Manzano Urea nitrogen [Mass/Vol] 14.0 mg/dL Normal 7.0-18.0 [facility] Comment on above: Performed By: #### C MP, LIPID #### [facility] [address] [place] [address] Dr. Yvan Manzano Urea nitrogen/Creatinine [Mass ratio] 19.7 mg/mg Normal [facility] Comment on above: Performed By: #### C MP, LIPID #### [facility] [address] [place] [address] Dr. Yvan Manzano COVID Quick Testingon 2020 Result Negative [employer] Other Vital Signs Date Time Vital Sign Value Performing Clinician Facility 01-22-2025 09:12-0400 Body mass index (BMI) [Ratio] 34.09 kg/m2 Halima Coral MANAGER SECURITY Work Phone: [facility] 01-22-2025 09:12-0400 Body temperature 98.01 [degF] Halima Coral MANAGER SECURITY Work Phone: [facility] 01-22-2025 09:12-0400 Body weight 84.55 kg Halima Coral MANAGER SECURITY Work Phone: [facility] 01-22-2025 09:12-0400 Diastolic blood pressure 90 mm[Hg] Halima Coral MANAGER SECURITY Work Phone: [facility] 01-22-2025 09:12-0400 Heart rate 89 /min Halima Coral MANAGER SECURITY Work Phone: [facility] 01-22-2025 09:12-0400 Respiratory rate 20 /min Halima Coral MANAGER SECURITY Work Phone: [facility] 01-22-2025 09:12-0400 SaO2% (BldA) [Mass fraction] 93 % Halima Coral MANAGER SECURITY Work Phone: [facility] 01-22-2025 09:12-0400 Systolic blood pressure 126 mm[Hg] Halima Coral MANAGER SECURITY Work Phone: [facility] 12-31-2024 09:14-0400 Body height 154.94 cm PHYSICIAN NO [facility] 12-31-2024 09:14-0400 Body mass index (BMI) [Ratio] 36.1 kg/m2 PHYSICIAN [facility] 12-31-2024 09:14-0400 Body temperature 98.6 [degF] PHYSICIAN NO [facility] 12-31-2024 09:14-0400 Body weight 86.63 kg PHYSICIAN NO [facility] 12-31-2024 09:14-0400 Diastolic blood pressure 79 mm[Hg] PHYSICIAN NO [facility] 12-31-2024 09:14-0400 Heart rate 104 /min PHYSICIAN NO [facility] 12-31-2024 09:14-0400 Respiratory rate 16 /min PHYSICIAN NO [facility] 12-31-2024 09:14-0400 SaO2% (BldA) [Mass fraction] 96 % PHYSICIAN NO [facility] 12-31-2024 09:14-0400 Systolic blood pressure 118 mm[Hg] PHYSICIAN NO [facility] 11-06-2024 12:48-0500 Body height 157.5 cm Christine Sanjeev DO Work Phone: [facility] 11-06-2024 12:48-0500 Body mass index (BMI) [Ratio] 33.36 kg/m2 Christine Sanjeev DO Work Phone: [facility] 11-06-2024 12:48-0500 Body weight 82.74 kg Christine Sanjeev DO Work Phone: [facility] 11-06-2024 12:48-0500 Diastolic blood pressure 78 mm[Hg] Christine Sanjeev DO Work Phone: [facility] 11-06-2024 12:48-0500 Heart rate 63 /min Christine Sanjeev DO Work Phone: [facility] 11-06-2024 12:48-0500 SaO2% (BldA) [Mass fraction] 96 % Christine Sanjeev DO Work Phone: [facility] 11-06-2024 12:48-0500 Systolic blood pressure 116 mm[Hg] Christine Sanjeev DO Work Phone: [facility] 09-12-2024 09:39-0500 Body height 154.9 cm Nicole Guzman MANAGER SECURITY Work Phone: [facility] 09-12-2024 09:39-0500 Body mass index (BMI) [Ratio] 33.63 kg/m2 Nicole Guzman MANAGER SECURITY Work Phone: [facility] 09-12-2024 09:39-0500 Body weight 80.74 kg Nicole Guzman MANAGER SECURITY Work Phone: [facility] 09-12-2024 09:39-0500 Diastolic blood pressure 81 mm[Hg] Nicole Richardsmor MANAGER SECURITY Work Phone: [facility] 09-12-2024 09:39-0500 Heart rate 95 /min Nicole Richardsmor MANAGER SECURITY Work Phone: [facility] 09-12-2024 09:39-0500 Systolic blood pressure 128 mm[Hg] Nicole Richardsmor MANAGER SECURITY Work Phone: [facility] 07-25-2024 08:49-0400 Body height 154.9 cm Halima Aichholz MANAGER SECURITY Work Phone: [facility] 07-25-2024 08:49-0400 Body mass index (BMI) [Ratio] 33.67 kg/m2 Halima Aichholz MANAGER SECURITY Work Phone: [facility] 07-25-2024 08:49-0400 Body temperature 98.4 [degF] Halima Aichholz MANAGER SECURITY Work Phone: [facility] 07-25-2024 08:49-0400 Body weight 80.83 kg Halima Aichholz MANAGER SECURITY Work Phone: [facility] 07-25-2024 08:49-0400 Diastolic blood pressure 78 mm[Hg] Halima Aichholz MANAGER SECURITY Work Phone: [facility] 07-25-2024 08:49-0400 Heart rate 101 /min Halima Aichholz MANAGER SECURITY Work Phone: [facility] 07-25-2024 08:49-0400 Respiratory rate 18 /min Halima Aichholz MANAGER SECURITY Work Phone: [facility] 07-25-2024 08:49-0400 SaO2% (BldA) [Mass fraction] 98 % Halima Aichholz MANAGER SECURITY Work Phone: [facility] 07-25-2024 08:49-0400 Systolic blood pressure 112 mm[Hg] Halima Aichholz MANAGER SECURITY Work Phone: [facility] 07-24-2024 10:08-0400 Body height 154.9 cm Lester Verdugo MD Work Phone: [facility] 07-24-2024 10:08-0400 Body mass index (BMI) [Ratio] 33.65 kg/m2 Lester Verdugo MD Work Phone: [facility] 07-24-2024 10:08-0400 Body weight 80.74 kg Lester Verdugo MD Work Phone: [facility] 07-24-2024 10:08-0400 Diastolic blood pressure 84 mm[Hg] Lester Verdugo MD Work Phone: [facility] 07-24-2024 10:08-0400 Respiratory rate 18 /min Lester Verdugo MD Work Phone: [facility] 07-24-2024 10:08-0400 Systolic blood pressure 128 mm[Hg] Lester Verdugo MD Work Phone: [facility] 06-20-2024 09:34-0400 Body height 154.9 cm Nicole Guzman MANAGER SECURITY Work Phone: [facility] 06-20-2024 09:34-0400 Body mass index (BMI) [Ratio] 33.44 kg/m2 Nicole Susiemor MANAGER SECURITY Work Phone: [facility] 06-20-2024 09:34-0400 Body weight 80.29 kg Nicole Susiemor MANAGER SECURITY Work Phone: [facility] 06-20-2024 09:34-0400 Diastolic blood pressure 84 mm[Hg] Nicole Gillmor MANAGER SECURITY Work Phone: [facility] 06-20-2024 09:34-0400 Heart rate 86 /min Nicole Susiemor MANAGER SECURITY Work Phone: [facility] 06-20-2024 09:34-0400 Systolic blood pressure 128 mm[Hg] Nicole Gillmor MANAGER SECURITY Work Phone: [facility] 05-25-2024 10:35-0400 Body height 154.9 cm Halima Lucerohholz MANAGER SECURITY Work Phone: [facility] 05-25-2024 10:35-0400 Body mass index (BMI) [Ratio] 33.22 kg/m2 Halima Aichholz MANAGER SECURITY Work Phone: [facility] 05-25-2024 10:35-0400 Body temperature 98.49 [degF] Halima Lucerohholz MANAGER SECURITY Work Phone: [facility] 05-25-2024 10:35-0400 Body weight 79.74 kg Halima Aichholz MANAGER SECURITY Work Phone: [facility] 05-25-2024 10:35-0400 Diastolic blood pressure 76 mm[Hg] Halima Aichholz MANAGER SECURITY Work Phone: [facility] 05-25-2024 10:35-0400 Heart rate 92 /min Halima Lucerohholz MANAGER SECURITY Work Phone: [facility] 05-25-2024 10:35-0400 Respiratory rate 18 /min Halima Aichholz MANAGER SECURITY Work Phone: [facility] 05-25-2024 10:35-0400 SaO2% (BldA) [Mass fraction] 99 % Halima Aichholz MANAGER SECURITY Work Phone: [facility] 05-25-2024 10:35-0400 Systolic blood pressure 108 mm[Hg] Halima Aichholz MANAGER SECURITY Work Phone: [facility] 05-03-2023 09:05-0400 Body height 157.48 cm Priyanka Jones Other [employer] Other 05-03-2023 09:05-0400 Body mass index (BMI) [Ratio] 35.02 kg/m2 Priyanka Jones Other [employer] Other 05-03-2023 09:05-0400 Body temperature 97.5 [degF] Priyanka Olveraley Other [employer] Other 05-03-2023 09:05-0400 Body weight 86.86 kg Priyanka Olveraley Other [employer] Other 05-03-2023 09:05-0400 Diastolic blood pressure 76 mm[Hg] Priyanka Olvrealey Other [employer] Other 05-03-2023 09:05-0400 Respiratory rate 18 /min Priyanka Olveraley Other [employer] Other 05-03-2023 09:05-0400 SaO2% (BldA) [Mass fraction] 100 % Priyanka Olveraley Other [employer] Other 05-03-2023 09:05-0400 Systolic blood pressure 117 mm[Hg] Priyanka Kaern Other [employer] Other 11-17-2022 11:30-0500 Body height 157.48 cm Mona Yeungault Other [employer] Other 11-17-2022 11:30-0500 Body mass index (BMI) [Ratio] 35.3 kg/m2 Mona Shane Other [employer] Other 11-17-2022 11:30-0500 Body temperature 98.7 [degF] Mona Shane Other [employer] Other 11-17-2022 11:30-0500 Body weight 87.54 kg Mona Shane Other [employer] Other 11-17-2022 11:30-0500 Respiratory rate 18 /min Mona Morin Other [employer] Other 11-17-2022 11:30-0500 SaO2% (BldA) [Mass fraction] 98 % Mona Shane Other [employer] Other 09-28-2022 16:30-0500 Body height 157.48 cm Mona Morin Other [employer] Other 09-28-2022 16:30-0500 Body mass index (BMI) [Ratio] 35.3 kg/m2 Mona Morin Other [employer] Other 09-28-2022 16:30-0500 Body temperature 98 [degF] Mona Yeungault Other [employer] Other 09-28-2022 16:30-0500 Body weight 87.54 kg Mona Morin Other [employer] Other 09-28-2022 16:30-0500 Diastolic blood pressure 79 mm[Hg] Mona Shane Other [employer] Other 09-28-2022 16:30-0500 Respiratory rate 18 /min Mona Shane Other [employer] Other 09-28-2022 16:30-0500 SaO2% (BldA) [Mass fraction] 98 % Mona Shane Other [employer] Other 09-28-2022 16:30-0500 Systolic blood pressure 130 mm[Hg] Mona Shane Other [employer] Other 07-14-2022 15:00-0400 Body height 157.48 cm Mona Morin Other [employer] Other 07-14-2022 15:00-0400 Body mass index (BMI) [Ratio] 35.66 kg/m2 Mona Morin Other [employer] Other 07-14-2022 15:00-0400 Body weight 88.45 kg Mona Morin Other [employer] Other 07-14-2022 15:00-0400 Diastolic blood pressure 89 mm[Hg] Mona Morin Other [employer] Other 07-14-2022 15:00-0400 Respiratory rate 18 /min Mona Morin Other [employer] Other 07-14-2022 15:00-0400 SaO2% (BldA) [Mass fraction] 98 % Mona Morin Other [employer] Other 07-14-2022 15:00-0400 Systolic blood pressure 145 mm[Hg] Mona Yeungault Other [employer] Other 06-30-2022 12:00-0400 Body height 157.48 cm Mona Yuengault Other [employer] Other 06-30-2022 12:00-0400 Body mass index (BMI) [Ratio] 35.48 kg/m2 Mona Yeungault Other [employer] Other 06-30-2022 12:00-0400 Body temperature 97.7 [degF] Mona Morin Other [employer] Other 06-30-2022 12:00-0400 Body weight 88 kg Mona Morin Other [employer] Other 06-30-2022 12:00-0400 Diastolic blood pressure 87 mm[Hg] Mona Morin Other [employer] Other 06-30-2022 12:00-0400 Respiratory rate 18 /min Mona Morin Other [employer] Other 06-30-2022 12:00-0400 SaO2% (BldA) [Mass fraction] 97 % Mona Morin Other [employer] Other 06-30-2022 12:00-0400 Systolic blood pressure 136 mm[Hg] Mona Morin Other [employer] Other 02-03-2022 11:00-0400 Body height 157.48 cm Mona Morin Other [employer] Other 02-03-2022 11:00-0400 Body mass index (BMI) [Ratio] 35.84 kg/m2 Mona Morin Other [employer] Other 02-03-2022 11:00-0400 Body temperature 98.2 [degF] Mona Morin Other [employer] Other 02-03-2022 11:00-0400 Body weight 88.91 kg Mona Morin Other [employer] Other 02-03-2022 11:00-0400 Diastolic blood pressure 96 mm[Hg] Mona Morin Other [employer] Other 02-03-2022 11:00-0400 Respiratory rate 18 /min Mona Morin Other [employer] Other 02-03-2022 11:00-0400 SaO2% (BldA) [Mass fraction] 99 % Mona Morin Other [employer] Other 02-03-2022 11:00-0400 Systolic blood pressure 157 mm[Hg] Mona Morin Other [employer] Other 08-31-2021 10:00-0500 Body height 157.48 cm Kaylie Ginty Other [employer] Other 08-31-2021 10:00-0500 Body mass index (BMI) [Ratio] 35.66 kg/m2 Kaylie Ginty Other [employer] Other 08-31-2021 10:00-0500 Body temperature 98.7 [degF] Kaylie Ginty Other [employer] Other 08-31-2021 10:00-0500 Body weight 88.45 kg Kaylie Ginty Other [employer] Other 08-31-2021 10:00-0500 Respiratory rate 18 /min Kaylie Ginty Other [employer] Other 08-31-2021 10:00-0500 SaO2% (BldA) [Mass fraction] 95 % Kaylie Ginty Other [employer] Other Encounters Encounter Date Encounter Type Care Provider Facility Start: 01-22-2025 End: 01-22-2025 Bamboo flowsheet Halima Moncada MANAGER SECURITY Work Phone: [facility] Start: 01-22-2025 End: 01-22-2025 Bamboo flowsheet Halima Moncada MANAGER SECURITY Work Phone: [facility] Start: 01-22-2025 End: 01-22-2025 Office outpatient visit 25 minutes Halima Moncada MANAGER SECURITY Work Phone: [facility] Comment on above: Type 2 diabetes jordin itus without complication, without long- term current use of insulin (Primary Dx); Primary hypertension (CMS/HCC); Gastroesophageal reflux disease without esophagitis; Fibromyalgia; Hypothyroidism, unspecified type (CMS/HCC); Obesity (BMI 30-39.9); Class 1 obesity due to excess calories with serious comorbidity in adult, unspecified BMI; Mild episode of recurrent major depressive disorder (HCC) (CMS/HCC); Mixed hyperlipidemia (CMS/HCC); Cervical radiculopathy; Bronchitis with asthma, subacute (CMS/HCC) Start: 01-22-2025 End: 01-22-2025 ambulatory HALIMA CORAL Not Available Start: 01-03-2025 End: 01-03-2025 ambulatory [facility] Start: 01-03-2025 End: 01-03-2025 ambulatory [facility] Start: 12-31-2024 End: 12-31-2024 ambulatory PHYSICIAN NO [facility] Work Phone: Start: 12-31-2024 End: 12-31-2024 Patient encounter procedure PHYSICIAN NO [facility] Work Phone: Start: 12-04-2024 End: 12-04-2024 ambulatory Montana Bergeron MD Facility:[facility] Start: 11-21-2024 End: 11-21-2024 Refill Halima Coral MANAGER SECURITY Work Phone: [facility] Comment on above: Gastroesophageal ref lux disease without esophagitis Start: 11-07-2024 End: 11-07-2024 ambulatory TD Gutierrez [facility] Start: 11-06-2024 End: 11-06-2024 Bamboo flowsheet Christine Sanjeev DO Work Phone: [facility] Start: 11-06-2024 End: 11-06-2024 Bamboo flowsheet Christine Sanjeev DO Work Phone: [facility] Start: 11-06-2024 End: 11-06-2024 Office outpatient visit 25 minutes Christine De Pazner DO Work Phone: [facility] Comment on above: Transient alteration of awareness (Primary Dx); Speech disturbance, unspecified type; Migraine without aura and without status migrainosus, not intractable (CMS/HCC); Insomnia, unspecified type; Carpal tunnel syndrome, unspecified laterality; RLS (restless legs syndrome) Start: 11-06-2024 End: 11-06-2024 ambulatory CHRISTINE ZIMMERMAN Not Available Start: 10-27-2024 End: 10-27-2024 Clinisync Result Encounter Christine Sanjeev DO Work Phone: [facility] Unsolicited Start: 10-27-2024 End: 10-27-2024 Clinisync Result Encounter Christine Zimmerman DO Work Phone: [facility] Unsolicited Start: 09-14-2024 End: 09-14-2024 ambulatory NICOLE GUZMAN Not Available Start: 09-12-2024 End: 09-12-2024 Bamboo flowsheet Nicole Susiemor MANAGER SECURITY Work Phone: [facility] [address] Start: 09-12-2024 End: 09-12-2024 Bamboo flowsheet Nicole Susiemor MANAGER SECURITY Work Phone: [facility] [address] Start: 09-12-2024 End: 09-12-2024 Office outpatient visit 25 minutes Nicole Guzman MANAGER SECURITY Work Phone: [facility] [place] [address] Comment on above: Transient alteration of awareness (Primary Dx); Speech disturbance, unspecified type; Migraine without aura and without status migrainosus, not intractable (CMS/HCC); RLS (restless legs syndrome); Cervical radiculopathy Start: 09-12-2024 End: 09-12-2024 ambulatory NICOLE GUZMAN Not Available Start: 08-18-2024 End: 08-18-2024 Refill Javier West MD Work Phone: [facility] Comment on above: Gastroesophageal ref lux disease without esophagitis Start: 08-08-2024 End: 08-08-2024 Clinisync Result Encounter Halima Jhonz MANAGER SECURITY Work Phone: [facility] External Department Unsolicited Start: 08-08-2024 End: 08-08-2024 Clinisync Result Encounter Halima Aichholz MANAGER SECURITY Work Phone: [facility] External Department Unsolicited Start: 07-25-2024 End: 07-25-2024 Bamboo flowsheet Halima Aichholz MANAGER SECURITY Work Phone: [facility] Start: 07-25-2024 End: 07-25-2024 Bamboo flowsheet Halima Aichholz MANAGER SECURITY Work Phone: [facility] Start: 07-25-2024 End: 07-25-2024 Office outpatient visit 25 minutes Halima Aichholz MANAGER SECURITY Work Phone: [facility] Comment on above: Type 2 diabetes jordin itus without complication, without long- term current use of insulin (CMS/HCC) (Primary Dx); Hypothyroidism, unspecified type (CMS/HCC); Primary hypertension (CMS/HCC); Migraine without aura and without status migrainosus, not intractable (CMS/HCC); Obesity (BMI 30-39.9) Start: 07-25-2024 End: 07-25-2024 ambulatory HALIMA AICHHOLZ Not Available Start: 07-24-2024 End: 07-24-2024 Office outpatient visit 25 minutes Lester Verdugo MD Work Phone: [facility] Comment on above: Fibromyalgia Start: 07-24-2024 End: 07-24-2024 ambulatory LESTER VERDUGO [facility] Start: 07-10-2024 End: 07-10-2024 Refill Halima Aichholz MANAGER SECURITY Work Phone: [facility] Comment on above: Type 2 diabetes jordin itus without complication, without long- term current use of insulin (CMS/[facility]) (Primary Dx) Start: 06-29-2024 End: 06-29-2024 Refill Halima Aichholz MANAGER SECURITY Work Phone: [facility] Comment on above: Type 2 diabetes jordin itus without complication, without long- term current use of insulin (CMS/HCC) Start: 06-28-2024 End: 06-28-2024 Refill Halima Aichholz MANAGER SECURITY Work Phone: [facility] Comment on above: Type 2 diabetes jordin itus without complication, without long- term current use of insulin (CMS/HCC) Start: 06-20-2024 End: 06-20-2024 Bamboo flowsheet Nicole Guzman MANAGER SECURITY Work Phone: [facility] [address] Start: 06-20-2024 End: 06-20-2024 Bamboo flowsheet Nicole Guzman MANAGER SECURITY Work Phone: [facility] Start: 06-20-2024 End: 06-20-2024 Office outpatient visit 25 minutes Nicole Guzman MANAGER SECURITY Work Phone: [facility] Comment on above: Migraine without aur a and without status migrainosus, not intractable (CMS/HCC) (Primary Dx); Insomnia, unspecified type; RLS (restless legs syndrome) Start: 06-20-2024 End: 06-20-2024 ambulatory NICOLE GUZMAN Not Available Start: 06-19-2024 End: 06-19-2024 Refill Lester Verdugo MD Work Phone: [facility] Comment on above: Fibromyalgia Start: 05-26-2024 End: 05-26-2024 Clinisync Result Encounter Halima Moncada MANAGER SECURITY Work Phone: [facility] External Department Unsolicited Start: 05-26-2024 End: 05-26-2024 Clinisync Result Encounter Halima Moncada MANAGER SECURITY Work Phone: [facility] External Department Unsolicited Start: 05-25-2024 End: 05-25-2024 Bamboo flowsheet Halima Moncada MANAGER SECURITY Work Phone: [facility] Start: 05-25-2024 End: 05-31-2024 Bamboo flowsheet Halima Ferreiraz MANAGER SECURITY Work Phone: [facility] Start: 05-25-2024 End: 05-31-2024 Clinisync Result Encounter Halima Moncada MANAGER SECURITY Work Phone: [facility] External Department Unsolicited Start: 05-25-2024 End: 05-25-2024 Patient encounter procedure Halima Moncada MANAGER SECURITY Work Phone: [facility] Start: 05-25-2024 End: 05-25-2024 Periodic preventive med est patient 40-64yrs Halima Moncada MANAGER SECURITY Work Phone: [facility] Comment on above: Encounter for well w roxy exam with routine gynecological exam (Primary Dx); Encounter for screening mammogram for malignant neoplasm of breast; Hypothyroidism, unspecified type (CMS/HCC); Amenorrhea; Dizziness and giddiness Start: 05-25-2024 End: 05-25-2024 ambulatory HALIMA AICHHOLZ Not Available Start: 04-12-2024 End: 04-12-2024 ambulatory TD BERUMEN [facility] Start: 02-28-2024 End: 02-28-2024 ambulatory Montana Bergeron MD Facility:[facility] Start: 02-23-2024 End: 02-23-2024 ambulatory HALIMA AICHHOLZ Not Available Start: 02-07-2024 End: 02-07-2024 ambulatory HALIMA MONCADA Not Available Start: 02-03-2024 End: 02-03-2024 ambulatory NICOLE GUZMAN Not Available Start: 01-17-2024 End: 01-17-2024 ambulatory Montana Bergeron MD Facility:[facility] Start: 12-24-2023 Telephone encounter Saeid Gooden CMA [facility] Start: 05-03-2023 End: 05-03-2023 ambulatory Priyanka Jones Other [employer] Other Start: 05-03-2023 Office outpatient vi sit 15 minutes Priyanka Jones [facility] Start: 01-22-2023 End: 01-23-2023 ambulatory MONA MORIN Facility: Start: 11-23-2022 End: 11-23-2022 ambulatory Mona Morin Other [employer] Other Start: 11-23-2022 Telephone encounter Mona hyde [facility] Start: 11-20-2022 End: 11-20-2022 ambulatory Mona Morin Other [employer] Other Start: 11-20-2022 Encounter by computer link Mona Morin [facility] Start: 11-17-2022 End: 11-18-2022 ambulatory MONA MORIN [employer] Other Start: 11-17-2022 Office outpatient vi sit 15 minutes Monamonty Morin [facility] Start: 10-06-2022 End: 10-06-2022 ambulatory Monamonty Morin Other [employer] Other Start: 10-06-2022 Telephone encounter Mona Smith t [facility] Start: 09-29-2022 End: 09-29-2022 ambulatory PHYSICIAN [facility] Work Phone: Start: 09-29-2022 End: 09-29-2022 Departed Referred PHYSICIAN [facility] [place] Work Phone: Start: 09-28-2022 End: 09-28-2022 ambulatory Mona Shane Other [employer] Other Start: 09-28-2022 Office outpatient vi sit 15 minutes Mona Shane [facility] Start: 09-14-2022 End: 09-14-2022 ambulatory Mona Shane Other [employer] Other Start: 09-14-2022 Telephone encounter Mona Breaul t [facility] Start: 07-14-2022 End: 07-14-2022 ambulatory Mona Shane Other [employer] Other Start: 07-14-2022 Office outpatient vi sit 15 minutes Mona Shane [facility] Start: 06-30-2022 End: 06-30-2022 ambulatory Mona Shane Other [employer] Other Start: 06-30-2022 Office outpatient vi sit 15 minutes Mona Shane [facility] Start: 04-02-2022 End: 04-02-2022 ambulatory Mona Shane Other [employer] Other Start: 04-02-2022 Telephone encounter Mona Breaul t [facility] Start: 03-31-2022 Telephone encounter Mona Breaul t [facility] Start: 03-31-2022 End: 04-01-2022 ambulatory MONA SHANE [employer] Other Start: 02-03-2022 End: 02-03-2022 ambulatory Mona Shane Other [employer] Other Start: 02-03-2022 Office outpatient vi sit 15 minutes Monamonty Morin [facility] Start: 12-10-2021 End: 12-10-2021 ambulatory Mona Shane Other [employer] Other Start: 12-10-2021 Telephone encounter Mona Breaul t [facility] Start: 11-10-2021 End: 11-10-2021 ambulatory Mona Shane Other [employer] Other Start: 11-10-2021 Telephone encounter Mona Breaul t [facility] Start: 09-03-2021 End: 09-03-2021 ambulatory Kaylie Ginty Other [employer] Other Start: 09-03-2021 Telephone encounter Kaylie Ginty [facility] Start: 08-31-2021 End: 08-31-2021 ambulatory Kaylie Ginty Other [employer] Other Start: 08-31-2021 Office outpatient vi sit 15 minutes Kaylie Ginty [facility] Procedures Date Procedure Procedure Detail Performing Clinician Start: 01-22-2025 Hemoglobin glycosyla ariel a1c Halima Moncada MANAGER SECURITY Work Phone: Start: 12-31-2024 Plain chest X-ray PHYSI DO NO FAMILY Start: 10-27-2024 MR HEAD/BRAIN WO CON Ni marylou Zimmerman DO Work Phone: Start: 09-13-2024 Mammography Nicole monique MANAGER SECURITY Work Phone: Start: 08-08-2024 MLR HEMOGLOBIN A1C Halima Moncada MANAGER SECURITY Work Phone: Start: 05-26-2024 ALL THYROID STIM HORMONE Halima Moncada MANAGER SECURITY Work Phone: Start: 05-26-2024 TBH PREG QUANT HCG Halima Moncada MANAGER SECURITY Work Phone: Start: 05-25-2024 IGP,APTIMA HPV,AGE GDLN Halima Moncada MANAGER SECURITY Work Phone: Start: 09-13-2023 Mammography Halima grande MANAGER SECURITY Work Phone: Start: 11-25-2020 Microscopic observat ion [Identifier] in Cervix by Cyto stain Halima Moncada MANAGER SECURITY Work Phone: Start: 10-11-2017 Mammography Saeid Odom lennie PRODUCT SAFETY MANAGER Start: 02-05-2017 Microscopic observat ion [Identifier] in Cervix by Cyto stain Saeid Giacomo PRODUCT SAFETY MANAGER Plan of Treatment Date Care Activity Detail Author Start: 05-25-2029 Screening for malignant neoplasm of cervix [facility] Start: 05-28-2026 Glaucoma screening Diabetes: Retinopathy Screening [facility] Start: 09-13-2025 Screening for malignant neoplasm of breast Mammogram [facility] Start: 07-24-2025 Adult BMI Screening Adult BMI Screening [facility] Start: 07-24-2025 Hemoglobin A1c measurement Diabetes: Hemoglobin A1C [facility] Start: 07-24-2025 Tobacco Screening Tobacco Screening [facility] Start: 07-24-2025 End: 07-24-2025 Patient encounter procedure 07/24/2025 10:15 AM EDT Office Visit [facility] [address] [phone] Lester Verdugo MD [address] [address] [facility] Start: 06-27-2025 Screening for malignant neoplasm of colon Colorectal Cancer Screening [facility] Comment on above: Postponed from 1976 (Patient Does Not Have Time) Start: 03-01-2025 End: 03-01-2025 Patient encounter procedure 03/01/2025 9:40 AM EDT Office Visit [facility] [address] [place] [phone] Nicole Guzman NP [address] [facility] [place] [facility] Start: 02-05-2025 Hemoglobin A1c measurement Diabetes: Hemoglobin A1C [facility] Start: 01-31-2025 Urine screening for protein Diabetes: Urine Protein Screening [facility] Start: 01-22-2025 End: 01-22-2026 CBC W Auto Differential panel - Blood CBC and differential Lab Routine Gastroesophageal reflux disease without esophagitis Expected: 01/22/2025 (Approximate), Expires: 01/22/2026 [facility] Comment on above: Expected: 01/22/2025 (Approximate), Expi res: 01/22/2026 Start: 01-22-2025 End: 01-22-2026 Comprehensive metabolic 2000 panel - Serum or Plasma Comprehensive metabolic panel Lab Routine Primary hypertension (CMS/HCC) Obesity (BMI 30-39.9) Type 2 diabetes mellitus without complication, without long-term current use of insulin Mixed hyperlipidemia (CMS/HCC) Expected: 01/22/2025 (Approximate), Expires: 01/22/2026 [facility] Comment on above: Expected: 01/22/2025 (Approximate), Expi res: 01/22/2026 Start: 01-22-2025 End: 01-22-2026 Lipid 1996 panel - Serum or Plasma Lipid panel Lab Routine Mixed hyperlipidemia (CMS/HCC) Expected: 01/22/2025 (Approximate), Expires: 01/22/2026 [facility] Comment on above: Expected: 01/22/2025 (Approximate), Expi res: 01/22/2026 Start: 01-22-2025 End: 01-22-2026 Microalbumin/Creatinine panel in random Urine Microalbumin / creatinine, urine ratio Lab Routine Type 2 diabetes mellitus without complication, without long-term current use of insulin Expected: 01/22/2025 (Approximate), Expires: 01/22/2026 [facility] Comment on above: Expected: 01/22/2025 (Approximate), Expi res: 01/22/2026 Start: 01-22-2025 End: 01-22-2026 Thyrotropin [Units/volume] in Serum or Plasma TSH Lab Routine Hypothyroidism, unspecified type (CMS/HCC) Expected: 01/22/2025 (Approximate), Expires: 01/22/2026 [facility] Work Phone: Comment on above: Expected: 01/22/2025 (Approximate), Expi res: 01/22/2026 Start: 01-22-2025 End: 01-22-2026 Thyroxine (T4) free [Mass/volume] in Serum or Plasma T4, free Lab Routine Hypothyroidism, unspecified type (CMS/HCC) Expected: 01/22/2025 (Approximate), Expires: 01/22/2026 [facility] Comment on above: Expected: 01/22/2025 (Approximate), Expi res: 01/22/2026 Start: 01-22-2025 End: 01-22-2026 Urinalysis complete panel - Urine Urinalysis with reflex microscopic (clean catch) Lab Routine Type 2 diabetes mellitus without complication, without long-term current use of insulin Expected: 01/22/2025 (Approximate), Expires: 01/22/2026 [facility] Comment on above: Expected: 01/22/2025 (Approximate), Expi res: 01/22/2026 Start: 01-22-2025 End: 01-22-2025 Patient encounter procedure [facility] Comment on above: Primary hypertension (CMS/HCC) (Primary Dx); Gastroesophageal reflux disease without esophagitis; Fibromyalgia; Hypothyroidism, unspecified type (CMS/HCC); Obesity (BMI 30-39.9); Class 1 obesity due to excess calories with serious comorbidity in adult, unspecified BMI; Type 2 diabetes mellitus without complication, without long-term current use of insulin; Mild episode of recurrent major depressive disorder (HCC) (CMS/HCC); Mixed hyperlipidemia (CMS/HCC); Cervical radiculopathy Start: 11-06-2024 End: 11-06-2024 Patient encounter [facility] Comment on above: Arrived Start: 10-28-2024 Glaucoma screening Diabetes: Retinopathy Screening [facility] Start: 09-14-2024 End: 09-14-2024 Professional / ancillary services management 09/14/2024 9:45 AM EST Ancillary Procedure [facility] [address] [place] [phone] [facility] [address] Start: 09-13-2024 End: 07-25-2025 MG Breast - bilateral Screening Bilateral screening mammogram Imaging Routine Encounter for screening mammogram for malignant neoplasm of breast Expected: 09/13/2024 (Approximate), Expires: 07/25/2025 [facility] Work Phone: Comment on above: Expected: 09/13/2024 (Approximate), Expi res: 07/25/2025 Start: 09-13-2024 Screening for malignant neoplasm of breast Mammogram [facility] Start: 09-13-2024 Screening for malignant neoplasm of colon Colorectal Cancer Screening [facility] Comment on above: Postponed from 1976 (Patient Refus ed) Start: 09-12-2024 End: 09-12-2025 EEG, Including Recording Awake or Asleep EEG, Including Recording Awake or Asleep Neurology Routine Transient alteration of awareness Expected: 09/12/2024 (Approximate), Expires: 09/12/2025 [facility] Comment on above: Expected: 09/12/2024 (Approximate), Expi res: 09/12/2025 Start: 09-12-2024 End: 09-12-2025 MR Brain WO contrast MR brain wo contrast Imaging Routine Transient alteration of awareness Speech disturbance, unspecified type Expected: 09/12/2024 (Approximate), Expires: 09/12/2025 [facility] Work Phone: Comment on above: Expected: 09/12/2024 (Approximate), Expi res: 09/12/2025 Start: 09-12-2024 End: 09-12-2024 Patient encounter procedure [facility] Comment on above: Arrived Start: 08-03-2024 Hemoglobin A1c measurement Diabetes: Hemoglobin A1C [facility] Start: 07-25-2024 End: 07-25-2025 Hemoglobin A1c/Hemoglobin.total in Blood Hemoglobin A1c Lab Routine Type 2 diabetes mellitus without complication, without long-term current use of insulin ([facility]) Expected: 07/25/2024 (Approximate), Expires: 07/25/2025 [facility] Work Phone: Comment on above: Expected: 07/25/2024 (Approximate), Expi res: 07/25/2025 Start: 07-25-2024 End: 07-25-2024 Patient encounter procedure [facility] Comment on above: Type 2 diabetes mellitus without complic ation, without long-term current use of insulin (CMS/HCC) (Primary Dx); Hypothyroidism, unspecified type (CMS/HCC); Primary hypertension (CMS/HCC) Start: 07-24-2024 End: 07-24-2024 Patient encounter procedure 07/24/2024 10:15 AM EDT Office Visit [facility] [address] [phone] Lester Verdugo MD [address] [address] [facility] Start: 06-20-2024 End: 06-20-2024 Patient encounter procedure [facility] Comment on above: Arrived Start: 06-19-2024 End: 06-19-2024 Patient encounter procedure 06/19/2024 9:20 AM EDT Office Visit [facility] [address] [place] [phone] Halima Moncada NP [address] [place] [address] [facility] Start: 05-28-2024 Influenza vaccination [facility] Start: 05-26-2024 Adult BMI Screening Adult BMI Screening [facility] Start: 05-26-2024 Tobacco Screening Tobacco Screening [facility] Start: 05-25-2024 End: 05-25-2025 HCG, quantitative, HCG, quantitative, Lab Routine Amenorrhea Expected: 05/25/2024 (Approximate), Expires: 05/25/2025 [facility] Comment on above: Expected: 05/25/2024 (Approximate), Expi res: 05/25/2025 Start: 05-25-2024 End: 05-25-2025 Prolactin level Prolactin level Lab Routine Amenorrhea Expected: 05/25/2024 (Approximate), Expires: 05/25/2025 [facility] Comment on above: Expected: 05/25/2024 (Approximate), Expi res: 05/25/2025 Start: 05-25-2024 End: 05-25-2025 THIN PREP TIS PAP AND HR HPV DNA THIN PREP TIS PAP AND HR HPV DNA Pathology and Cytology Routine Encounter for well woman exam with routine gynecological exam Expected: 05/25/2024 (Approximate), Expires: 05/25/2025 [facility] Comment on above: Expected: 05/25/2024 (Approximate), Expi res: 05/25/2025 Start: 05-25-2024 End: 05-25-2025 Thyrotropin [Units/volume] in Serum or Plasma TSH Lab Routine Hypothyroidism, unspecified type (CMS/HCC) Amenorrhea Expected: 05/25/2024 (Approximate), Expires: 05/25/2025 [facility] Healthcare Comment on above: Expected: 05/25/2024 (Approximate), Expi res: 05/25/2025 Start: 05-25-2024 End: 05-25-2025 Thyroxine (T4) free [Mass/volume] in Serum or Plasma T4, free Lab Routine Hypothyroidism, unspecified type (CMS/HCC) Expected: 05/25/2024 (Approximate), Expires: 05/25/2025 [facility] Comment on above: Expected: 05/25/2024 (Approximate), Expi res: 05/25/2025 Start: 05-25-2024 End: 05-25-2025 US Pelvis transvaginal US pelvis transvaginal Imaging Routine Amenorrhea Expected: 05/25/2024 (Approximate), Expires: 05/25/2025 [facility] Comment on above: Expected: 05/25/2024 (Approximate), Expi res: 05/25/2025 Start: 05-25-2024 End: 05-25-2024 Patient encounter procedure 05/25/2024 10:30 AM EDT Procedure Visit [facility] [address] [place] [address] Halima Moncada NP [address] [place] [id number] Encounter for screening mammogram for malignant neoplasm of breast (Primary Dx) [facility] Comment on above: Encounter for screening mammogram for ma lignant neoplasm of breast (Primary Dx) Start: 11-26-2023 Screening for malignant neoplasm of cervix [facility] Start: 05-28-2023 Influenza vaccination Influenza Vaccine [facility] Start: 09-29-2022 Aerobic Culture Aerobic Culture [facility] Start: 09-29-2022 Anaerobic Culture Anaerobic Culture [facility] Start: 09-29-2022 Microscopic observation [Identifier] in Unspecified specimen by Gram stain Gram Stain [facility] Start: 02-06-2020 Screening for malignant neoplasm of cervix Pap Smear [facility] Start: 10-11-2018 Screening for malignant neoplasm of breast Mammogram [facility] Start: 2006 Screening for malignant neoplasm of cervix HPV/Cotest [facility] Start: 12-06-1995 DTaP,Tdap and Td Vaccines (1 - Tdap) DTaP,Tdap and Td Vaccines (1 - Tdap) [facility] Start: 1994 Adult BMI Follow Up Plan Adult BMI Follow Up Plan [facility] Start: 1988 Depression Screening Depression Screening [facility] Start: 1976 Screening for malignant neoplasm of colon [facility] Bacteria identified in Unspecified specimen by Aerobe culture [facility] Bacteria identified in Unspecified specimen by Anaerobe culture [facility] XR Chest 2 Views [facility] Immunizations Immunization Date Immunization Notes Care Provider Fa cility 10-01-2020 influenza virus vacc ine, unspecified formulation Saeid Gooden [facility] Payers Date Payer Category Payer Self-pay [id number] 2022 Medicaid [id number] 2022 Medicaid [id number] [id number] 2019 Blue Cross Blue Shield BCBS [id number]. [id number] 2017 Blue Cross Blue Shie ld Managed Care - Other ANTHEM [id number]. [id number] 2017 Unknown [id number]. 1.13.693.2. [id number] 1976 Unknown [id number] 2.16.840.1.200260.3.579.2. 593 1976 Unknown [id number] 2.16.840.1.535011.3.579.2. 593 1976 Unknown [id number] 2.16.840.1.859767.3.579.2. 593 1976 Unknown [id number] 2.16.840.1.675360.3.579.2. 1286 1976 Unknown [id number] 2.16.840.1.707805.3.579.2. 1285 1976 Unknown [id number] 2.16.840.1.342455.3.579.2. 1285 1976 Unknown [id number] 2.16.840.1.953637.3.579.2. 196 1976 Unknown [id number] 2.16.840.1.589734.3.579.2. 1976 Unknown [id number] 2.16.840.1.489757.3.579.2. 1976 Unknown [id number] 2.16.840.1.541958.3.579.2. 1258 1976 Unknown [id number] 2.16.840.1.084676.3.579.2. 1258 1976 Unknown [id number] 2.16.840.1.954065.3.579.2. 1258 1976 Unknown [id number] 2.16.840.1.779109.3.579.2. 1258 1976 Unknown [id number] 2.16.840.1.521468.3.579.2. 1258 1976 Unknown [id number] 2.16.840.1.652084.3.579.2. 1258 1976 Unknown [id number] 2.16.840.1.252957.3.579.2. 1258 1976 Unknown [id number] 2.16.840.1.989083.3.579.2. 1258 1976 Unknown [id number] 2.16.840.1.735801.3.579.2. 1258 1976 Unknown [id number] 2.16.840.1.982519.3.579.2. 9 1959 Unknown [id number] 2.16.840.1.432192.19 1959 Unknown [id number] [facility] [id number] 216.840.1.452670.19 Unknown [id number] 2..840.1.880114.19 Unknown [id number] 2.840.1.943145.3.579.2. 531 Social History Date Type Detail Facility Unknown if ever smoked [employer] Other Start: 09-12-2023 End: 01-22-2025 Sex Assigned At [facility] Start: 1975 Sex Assigned At Female [facility] Start: 10-26-2023 End: 12-31-2024 Tobacco smoking status WYIS Never smoked tobacco [facility] Start: 08-23-2017 End: 10-26-2023 Tobacco use and exposure Smokeless tobacco non-user [facility] Start: 06-20-2024 End: 01-22-2025 Alcoholic beverage intake Lifetime non-drinker (finding) [facility] Start: 09-12-2023 End: 01-22-2025 History of Social function [facility] Within the last year , have you been afraid of your partner or ex-partner? No [facility] Do you belong to any clubs or organizations such as judaism groups, unions, fraternal or athletic groups, or [...] soda: 2 cups daily [facility] Start: 1975 Sex assigned at Not on file [facility] Start: 05-26-2023 End: 07-24-2024 Alcohol intake Current non-drinker of alcohol (finding) [facility] Start: 04-30-2015 End: 01-01-2025 Sex Female (finding) [facility] How often to you hav e a drink containing alcohol? Monthly or less [facility] How hard is it for y ou to pay for the very basics like food, housing, medical care, and heating Not very hard [facility] (I/We) worried wheleticia er (my/our) food would run out before (I/we) got money to buy more. Never true [facility] Medical Equipment Procedure Code Equipment Code Equipment Origin al Text Equipment Identifier Dates Start: 06-04-2020 Functional Status Date Assessment Result Facility 01-22-2025 Total score [AUDIT-C] 1 01/23/20 25 8:46 AM EDT Mychart, Generic [facility] 01-22-2025 How often to you hav e a drink containing alcohol? Monthly or less 01/22/2025 8:46 AM EDT Mychart, Generic Monthly or less [facility] 01-22-2025 Functional status Patient does n ot drink 01/22/2025 8:46 AM EDT Mychart, Generic Patient does not drink [facility] 01-22-2025 How often do you hav e 6 or more drinks on 1 occasion? Never 01/22/2025 8:46 AM EDT Mychart, Generic Never [facility] Clinical Notes 08-31-2021 to 01-22-2025 DUSTIN LILLY - 01/22/2025 9:00 AM Nubia Moncada NP - 01/22/2025 9:00 AM Nubia Moncada MANAGER SECURITY - 01/22/2025 6:30 AM Nubia Moncaad NP - 01/22/2025 6:27 AM EDTPatient Instructions Note Date & Type Note Facility 01-22-2025 History of Presen t illness Narrative Pinch nerve right trapezius shoulder She has an appt with neuro surgeon end of next month. Pt is still getting over pneumonia-still very fatigue and sob 02 stats 92-93% If she tries to take a deep inhale she goes into a coughing fit She was given steroids at urgent care Went 12/31-not any better Pt is wheezing and crackles Pt was also given albuterol inhaler- does not help Pt has deep wet cough and unable to bring anything up Images from the original note were not included. Tatiana Sepulveda is a 49 y.o. female presents with chief complaint of Diabetes HPI: Neck pain, trap, shoulder to elbow, constant, hard to describe, is seeing neurology, and is gonna be seen by neurosurgeon, in January 2025 at [facility]. Depression: taking medications, a lot of life stressors, no SI/HI/Hallucinations. Not sleeping well Getting over pneumonia: frq cough, can get bad enough vomits from cough. Wheeze+, no colored mucus, Urgent care: had an xray, sent home on inhaler and steroids. Was told viral. Not going away and has sxs for about 4, this week starting week 5 Diabetes She presents for her follow-up diabetic visit. She has type 2 diabetes mellitus. Her disease course has been stable. There are no hypoglycemic associated symptoms. Pertinent negatives for hypoglycemia include no dizziness, headaches, nervousness/anxiousness, seizures or tremors. Pertinent negatives for diabetes include no chest pain, no foot paresthesias, no polydipsia, no polyphagia, no polyuria and no visual change. There are no hypoglycemic complications. Symptoms are stable. There are no diabetic complications. Risk factors for coronary artery disease include diabetes mellitus, dyslipidemia and obesity. Current diabetic treatments: GLP 1. Her overall blood glucose range is 90-110 mg/dl. An DIANE inhibitor/angiotensin II receptor leighton is not being taken. She does not see a biology specimen technician. SUBJECTIVE: MEDICATIONS: Current Outpatient Medications Medication Instructions amitriptyline (ELAVIL) 50 mg, Nightly atorvastatin (LIPITOR) 10 mg, Oral, Every evening biotin 1 MG capsule Take by mouth glucose blood ([employer]) test strip 1 each, As needed insulin syringe-needle U-100 31G X 5/16 0.3 mL misc 1 each, Weekly levothyroxine (SYNTHROID, LEVOXYL) 50 mcg, Oral, Daily before breakfast meloxicam (MOBIC) 15 mg, Daily Nurtec 75 mg, Oral, Daily PRN omeprazole (PRILOSEC) 20 mg, Oral, Daily before breakfast ondansetron (Zofran) 4 MG tablet 1 every 8 hours for migraine associated nausea and vomiting Ozempic (1 MG/DOSE) 1 mg, Subcutaneous, Weekly pregabalin (LYRICA) 75 mg, 2 times daily Rimegepant Sulfate (Nurtec) 75 MG tablet dispersible Take one tab every other day, may take on off day for migraine abortive, not more than one in 24 hours or 18 a month. sertraline (ZOLOFT) 200 mg, Daily tiZANidine (Zanaflex) 4 MG tablet 2 tablets at bedtime ALLERGIES: No Known Allergies REVIEW OF SYMPTOMS: Review of Systems Constitutional: Negative for appetite change, chills and fever. HENT: Negative for congestion, ear pain and sore throat. Eyes: Negative for pain, discharge, redness and visual disturbance. Respiratory: Positive for cough. Negative for shortness of breath and wheezing. Cardiovascular: Negative for chest pain, palpitations and leg swelling. Gastrointestinal: Negative for abdominal pain, blood in stool, constipation, diarrhea, nausea and vomiting. Genitourinary: Negative for difficulty urinating, dysuria and frequency. Musculoskeletal: Negative for arthralgias, back pain, joint [...] (gastroesophageal reflux disease) HTN (hypertension) (CMS/HCC) Hyperlipidemia (CMS/[facility]) Hypersomnia 11/17/2014 Hypothyroidism ([facility]) Migraines ([facility]) 07/13/2008 Muscle spasm 11/19/2016 Nausea with vomiting 02/21/2015 Nonspecific abnormal results of function study 08/19/2009 brain and central nervous system; other JONATHAN (obstructive sleep apnea) 10/18/2019 Pain in limb 05/07/2015 PCOS (polycystic ovarian syndrome) Pre-diabetes Sleep disturbance 03/19/2014 Snoring 02/21/2015 Tension headache 07/13/2008 Type 2 diabetes mellitus ([facility]) Varicose veins of both legs [...] in her father. OBJECTIVE: Visit Vitals BP 126/90 (BP Location: Left arm, Patient Position: Sitting, BP Cuff Size: Adult long) Pulse 89 Temp 98 F (Temporal) Resp 20 Wt 186 lb 6.4 oz SpO2 93% BMI 34.09 kg/m Smoking Status Never BSA 1.92 m Physical Exam Vitals and nursing note reviewed. Constitutional: General: She is not in acute distress. Appearance: Normal appearance. HENT: Head: Normocephalic and atraumatic. Right Ear: Tympanic membrane, ear canal and external ear normal. Left Ear: Tympanic membrane, ear canal and external ear normal. Nose: Nose normal. No congestion or rhinorrhea. Comments: pallor Mouth/Throat: Mouth: Mucous membranes are moist. Pharynx: No oropharyngeal exudate or posterior oropharyngeal erythema. Eyes: Extraocular Movements: Extraocular movements intact. Conjunctiva/sclera: Conjunctivae normal. Neck: Vascular: No carotid bruit. Cardiovascular: Rate and Rhythm: Normal rate and regular rhythm. Pulses: Normal pulses. Heart sounds: Normal heart sounds. No murmur heard. Pulmonary: Effort: Pulmonary effort is normal. Breath sounds: Normal breath sounds. No wheezing or rhonchi. Comments: Reactive cough Abdominal: General: Bowel sounds are normal. There [...] file. Problem List Items Addressed This Visit Depression ([facility]) Current med: sertraline Life stressors, and does not feel needs dose adjustment Fibromyalgia Current meds: elavil, meloxicam, tizandidine (overlap w meds for cervcial) GERD (gastroesophageal reflux disease) Recommendations: freq small meals, nothing to eat or drink at least 2 hours prior to bed, limit caffeine, alcohol, as well as spicy foods Meds to limit or avoid if possible: NSAIDS Elevate HOB if possible Current med: omprazole Relevant Medications omeprazole (PriLOSEC) [address] capsule Other Relevant Orders CBC and differential HTN (hypertension) ([facility]) - Primary Stopped her diane at last appt d/t dizziness, her blood pressures have been great and no dizziness At this point we will leave her off DIANE for renal protection d/t dizziness Relevant Orders Comprehensive metabolic panel Hyperlipidemia ([facility]) On statin therapy Check labs yearly and prn dose changes Relevant Orders Lipid panel Comprehensive metabolic panel Hypothyroidism ([facility]) Current med: levothyroxine Check labs yearly, and prn dose changes or changes in sxs Relevant Medications levothyroxine (Synthroid, Levoxyl) 50 MCG tablet Other Relevant Orders TSH T4, free Type 2 diabetes mellitus Check blood sugars daily, notify if <70 [...] diet low in carbohydrates, and simple sugars. Current meds; statin, ozempic Cannot tolerate DIANE/ARB d/t dizziness A1c: 5.6% 01/22/25 Relevant Medications atorvastatin (Lipitor) 10 MG tablet semaglutide (Ozempic, 1 MG/DOSE,) 4 MG/3ML solution pen-injector Other Relevant Orders POCT glycosylated hemoglobin (Hb A1C) docked device (Completed) Urinalysis with reflex microscopic (clean catch) Microalbumin / creatinine, urine ratio Comprehensive metabolic panel Cervical radiculopathy Current meds: meloxicam, lyrica, tizianidine With neurology and neurosurgeon RESOLVED: Obesity (BMI 30-39.9) Relevant Orders Comprehensive metabolic panel Class 1 obesity due to excess calories with serious comorbidity in adult Discussed with patient their BMI (actual, verses recommended). We have also discussed lifestyle modifications: attempts to perform physical activity as chronic conditions allow, also to monitor dietary intake: increasing protein/fruits/veggies and lowering carb intake (unless contraindicated). Limit sodas, juices, and sugary drinks. Does take ozempic for DM Bronchitis with asthma, subacute (CMS/HCC) Relevant Medications amoxicillin-clavulanate (Augmentin) 875-125 MG tablet benzonatate (Tessalon) 200 MG capsule Associated Problem(s): Cervical radiculopathy Current meds: meloxicam, lyrica, tizianidine With neurology and neurosurgeon Associated Problem(s): Hyperlipidemia (CMS/HCC) On statin therapy Check labs yearly and prn dose changes Associated Problem(s): Depression (CMS/HCC) Current med: sertraline Life stressors, and does not feel needs dose adjustment Associated Problem(s): Type 2 diabetes mellitus Check blood sugars daily, notify if <70 [...] diet low in carbohydrates, and simple sugars. Current meds; statin, ozempic Cannot tolerate DIANE/ARB d/t dizziness A1c: 5.6% 01/22/25 Associated Problem(s): Class 1 obesity due to excess calories with serious comorbidity in adult Discussed with patient their BMI (actual, verses recommended). We have also discussed lifestyle modifications: attempts to perform physical activity as chronic conditions allow, also to monitor dietary intake: increasing protein/fruits/veggies and lowering carb intake (unless contraindicated). Limit sodas, juices, and sugary drinks. Does take ozempic for DM Associated Problem(s): Hypothyroidism (CMS/HCC) Current med: levothyroxine Check labs yearly, and prn dose changes or changes in sxs Associated Problem(s): Fibromyalgia Current meds: elavil, meloxicam, tizandidine (overlap w meds for cervcial) Associated Problem(s): GERD (gastroesophageal reflux disease) Recommendations: freq small meals, nothing to eat or drink at least 2 hours prior to bed, limit caffeine, alcohol, as well as spicy foods Meds to limit or avoid if possible: NSAIDS Elevate HOB if possible Current med: omprazole Associated Problem(s): HTN (hypertension) (CMS/[facility]) Stopped her diane at last appt d/t dizziness, her blood pressures have been great and no dizziness At this point we will leave her off DIANE for renal protection d/t dizziness documented in this encounter [facility] 01-22-2025 Instructions Halima Moncada NP - 01/22/2025 9:00 AM EDT Labs: Bronchitis: antibiotic, benzonate fluids, rest,if not better call office and I will repeat a chest xray if needed documented in this encounter [facility] 12-31-2024 Evaluation note Diagnosis Onset Date Resolution Bronchitis acute December 31 9:10am [facility] Work Phone: [phone] 299-955602-10-2025 History of Present illness Narrative* Christine Zimmerman, - 11/06/2024 1:00 PM EST Images from the original note were not included. Chief Complaint Patient presents with Migraine Restless Legs Insomnia Subjective She is here post MRI Brain. She is taking zanaflex nightly. She states that it helps her sleep. She sleeps 6-8 hours a night ofbroken sleep, more often 6 hours. 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 He does have a CPAP machine but he snores through the machine. 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 The patient is to call with any worsening of the condition or new symptoms. Return to clinic: [address] Zimmerman for new episodes [id number] History of Present illness Narrative* Halima Moncada NP - 07/25/2024 9:18 AM EDTAssociated Problem(s): Migraines (CMS/HCC) Inadvertantly cancelled her nurtec script Contact pharmacy DM, spoke to associate let them know to keep this active Associate Tr Shay with neurology * Halima Moncada NP - 07/25/2024 9:17 AM EDTAssociated Problem(s): Hypothyroidism (CMS/HCC) No dose changes needed, doing well * Halima Moncada NP - 07/25/2024 9:17 AM EDTAssociated Problem(s): Type 2 diabetes mellitus (CMS/HCC) Continue current meds No DIANE: dizziness No ASA: hx gastric sleeve Statin: yes Check blood sugars daily, notify if <70 or >200. Take medications (pills or insulin) as directed. Monitor for s/s of hypoglycemia (sweaty, dizziness, nausea, vomiting, or shakiness). Watch for increase in thirst, urination, or appetite. Inspect feet frequently monitoring for open wounds , andalso recommend yearly eye exam. Pt should attempt to remain as physically active as chronic conditions allow, as well as trying to follow a diet low in carbohydrates, and simple sugars. * Halima Moncada NP - 07/25/2024 9:12 AM EDTAssociated Problem(s): HTN (hypertension) ([facility]) Stopped her diane at last appt d/t dizziness, her blood pressures have been great and no dizziness At this point we will leave her off DIANE for renal protection d/t dizziness * Halima Moncada NP - 07/25/2024 9:00 AM EDT Images from the original note were not included. Tatiana Sepulveda is a 48 y.o. female presents with chief complaint of No chief complaint on file. HPI: Diabetes She presents for her follow-up diabetic visit. She has type 2 diabetes mellitus. Her disease coursehas been stable. There are no hypoglycemic associated symptoms. Pertinent negatives for hypoglycemia include no dizziness, headaches, nervousness/anxiousness, seizures or tremors. There are no diabetic associated symptoms. Pertinent negatives for diabetes include no chest pain, no fatigue, no foot paresthesias, no polydipsia, no polyphagia, no polyuria, no visual change, no weakness and no weightloss. There are no hypoglycemic complications. Symptoms are stable. Pertinent negatives for diabetic complications include no heart disease, nephropathy or peripheral neuropathy. Risk factors for coronary artery disease include diabetes mellitus and obesity. Current diabetic treatment includes oralagent (dual therapy). She is compliant with treatment all of the time. Her overall blood glucose range is 90-110 mg/dl. An DIANE inhibitor/angiotensin II receptor leighton is being taken. She does not see a biology specimen technician.Eye exam is current. Thyroid Problem Presents for follow-up visit. Patient reports no anxiety, cold intolerance, constipation, depressedmood, diarrhea, fatigue, heat intolerance, hoarse voice, leg [...] (gastroesophageal reflux disease) HTN (hypertension) (CMS/HCC) Hyperlipidemia ([facility]/HCC) Hypersomnia 11/17/2014 Hypothyroidism ([facility]/HCC) Migraines (CMS/HCC) 07/13/2008 Muscle spasm 11/19/2016 Nausea with vomiting 02/21/2015 Nonspecific abnormal results of function study 08/19/2009 brain and central nervous system; other JONATHAN (obstructive sleep apnea) 10/18/2019 Pain in limb 05/07/2015 PCOS (polycystic ovarian syndrome) Pre-diabetes Sleep disturbance 03/19/2014 Snoring 02/21/2015 Tension headache 07/13/2008 Type 2 diabetes mellitus ([facility]) Varicose veins of both legs with edema 09/13/2023 Past Surgical History: Procedure Laterality Date CHOLECYSTECTOMY 12/2003 IR ABLATION VEIN SLEEVE GASTROPLASTY 12/2017 VEIN SURGERY 03/2009 Leg veins family history includes Bone cancer in her paternal grandfather; Breast cancer in an other family member; Heart disease in her father and paternal grandfather; Hypertension in her father, mother, andpaternal grandfather; Melanoma in an other family member; [...] List Items Addressed This Visit HTN (hypertension) ([facility]) Stopped her diane at last appt d/t dizziness, her blood pressures have been great and no dizziness At this point we will leave her off DIANE for renal protection d/t dizziness Hypothyroidism ([facility]) No dose changes needed, doing well Relevant Medications levothyroxine (Synthroid, Levoxyl) 50 MCG tablet Migraines ([facility]) Inadvertantly cancelled her [facility] script Contact pharmacy DM, spoke to associate let them know to keep this active Associate Tr Shay with neurology Type 2 diabetes mellitus ([facility]) - Primary Continue current meds No DIANE: dizziness No ASA: hx gastric sleeve Statin: yes Check blood sugars daily, notify if <70 or >200. Take medications (pills or insulin) as directed. Monitor for s/s of hypoglycemia (sweaty, dizziness, nausea, vomiting, or shakiness). Watch for increase in thirst, urination, or appetite. Inspect feet frequently monitoring for open wounds , andalso recommend yearly eye exam. Pt should attempt to remain as physically active as chronic conditions allow, as well as trying to follow a diet low in carbohydrates, and simple sugars. Relevant Medications atorvastatin (Lipitor) 10 MG tablet Other Relevant Orders Hemoglobin A1c Obesity (BMI 30-39.9) documented in this encounterNortheast Regional Medical [id number] History of Present illness Narrative* Lester Verdugo MD - 07/24/2024 10:15 AM EDT Images from the original note were not included. [address] [address] Date of Service: 07/24/2024 Subjective: Tatiana Sepulveda [...] past medical history, past social history, past surgicalhistory and problem list. Review of Systems: Review [...] morning. SAMPLES PROVIDED TO PATIENT 04/12/24 LOT# [id number]; EXP: [id number].) 14 tablet 0 brexpiprazole (REXULTI) 1 mg tablet Take 1 tablet (1 mg total) by mouth in the morning. (Patient taking differently: Take 1 tablet (1 mg total) by mouth in the morning. SAMPLES PROVIDED TO PATIENT ON04/12/24 LOT#[id number] EXPIRES: 01/2025.) 14 tablet 0 budesonide-formoterol (SYMBICORT) [...] total) by mouth in the morning. 180 tablet3 tiZANidine (ZANAFLEX) 4 mg tablet Take 1 [...] or corrected. Thank you for your understanding. [facility] Dr. Lester Verdugo MD [address] [facility], [address] [place] [address] Office: [phone] documented in this encounterCincinnati [facility]08-29-2024 History of Present illness Narrative* Halima Moncada NP - 05/25/2024 11:28 AM EDTAssociated Problem(s): Dizziness and giddiness Hold lisinopril at this time If after a few weeks if not better call office * Halima Moncada NP - 05/25/2024 11:27 AM EDTAssociated Problem(s): Encounter for well woman exam with routine gynecological exam Monthly BSE Yearly mammograms PAP as indicated Healthy diet and exercise * Halima Moncada NP - 05/25/2024 11:26 AM EDTAssociated Problem(s): Hypothyroidism (CMS/HCC) Will recheck, to r.o abnormal and possible cause of her amenorrhea * Halima Moncada NP - 05/25/2024 11:25 AM EDTAssociated Problem(s): Amenorrhea Recheck quant, prolactin, thyroid Check pelvic US * DUSTIN LILLY - 05/25/2024 10:30 AM EDT Pt had a menses until january, she has not had one since. Pt has had quite a bit of bloating. Pt would like to discuss her bp medication. She states if her head is down and comes back up she sees spots, she becomes lightheaded and dizzy, and sweats. * Halima Moncada NP - 05/25/2024 10:30 AM EDT Images from the original note were not included. Tatiana Sepulveda is a 48 y.o. female presents with chief complaint of No chief complaint on file. HPI: Here for CAGE CLERK exam: had procedure surgical early February, + [...] not crush or chew.Take 20 mg by mouthin the morning. ondansetron (Zofran) 4 MG tablet 1 every 8 hours for migraine associated nausea and vomiting Ozempic (1 MG/DOSE) 1 mg, Subcutaneous, Weekly Rimegepant Sulfate (Nurtec) 75 MG tablet dispersible One at migraine onset, not more than one in 24hours rOPINIRole (Requip) 1 MG tablet 1 tab [...] problem and missed menses. Negative for difficulty urinating,dysuria, frequency, hematuria, pelvic pain and vaginal discharge. [...] of skin sensation 05/07/2015 EDS (Jen-Danlos syndrome) ([facility]) Fatigue Fibromyalgia GERD (gastroesophageal reflux disease) HTN (hypertension) ([facility]) Hyperlipidemia ([facility]) Hypersomnia 11/17/2014 Hypothyroidism ([facility]) Migraines ([facility]) 07/13/2008 Muscle spasm 11/19/2016 Nausea with vomiting 02/21/2015 Nonspecific abnormal results of function study 08/19/2009 brain and central nervous system; other JONATHAN (obstructive sleep apnea) 10/18/2019 Pain in limb 05/07/2015 PCOS (polycystic ovarian syndrome) Pre-diabetes Sleep disturbance 03/19/2014 Snoring 02/21/2015 Tension headache 07/13/2008 Type 2 diabetes mellitus ([facility]) Varicose veins of both legs with edema 09/13/2023 Past Surgical History: Procedure Laterality Date CHOLECYSTECTOMY 12/2003 IR ABLATION VEIN SLEEVE GASTROPLASTY 12/2017 VEIN SURGERY 03/2009 Leg veins family history includes Bone cancer in her paternal grandfather; Breast cancer in an other family member; Heart disease in her father and paternal grandfather; Hypertension in her father, mother, andpaternal grandfather; Melanoma in an other family member; [...] nursing note reviewed. Exam conducted with a gas dispatcher present. Constitutional: General: She is not in [...] Problem List Items Addressed This Visit Hypothyroidism (CMS/[facility]) Will recheck, to r.o abnormal [...] not better call office documented in this encounterNortheast Regional Medical [id number] Miscellaneous Notes* Telephone Encounter - Saeid Gooden CMA - 12/24/2023 10:25 AM EDT Attempted to contact patient to reschedule appointment on 05/31/[address] Verdugo is out of the office. No Vm set up to leave a message. documented in this encounterCincinnati [facility] Center03-29-2024 Telephone encounter Note* Telephone Encounter - Saeid Gooden CMA - 12/24/2023 10:25 AM EDT Attempted to contact patient to reschedule appointment on 05/31/[address] Verdugo is out of the office. No Vm set up to leave a message. [facility]08-07-[facility] Evaluation note* Encounter Date Diagnosis Assessment Notes Treatment Notes Treatment Clinical Notes Apr, Sore throat (ICD-10 - J02.9) [...] fever. Patient/Parent verbalized understanding of treatment plan. [employer] Other 02-21-2023 Evaluation note* Encounter Date [...] weeks for the cough to go away [employer] Other 01-02-2023 Evaluation note* Encounter Date [...] obtained for C&S. Will call with results. [employer] Other 12-19-2022 Evaluation note* Encounter Date Diagnosis Assessment Notes Treatment Notes Treatment Clinical Notes Aug, Gastroesophageal ref lux disease, unspecified whether esophagitis present (ICD-10 - K21.9) Aug, PCOS (polycystic ovarian syndrome) (ICD-10 - E28.2) [employer] Other 10-18-2022 Evaluation note* Encounter Date Diagnosis Assessment Notes Treatment Notes Treatment Clinical Notes Jun, Fibromyalgia (ICD-10 - M79.7) Continue current treatment regimen. Printed off script to use as needed [employer] Other 10-04-2022 Evaluation note* Encounter Date Diagnosis Assessment Notes Treatment Notes Treatment Clinical Notes Jun, Primary hypertension (ICD-10 - I10) Jun, SJ (generalized anxiety disorder) (ICD-10 - F41.1) [employer] Other 07-07-2022 Evaluation note* Encounter Date Diagnosis Assessment Notes Treatment Notes Treatment Clinical Notes Mar, Right hip pain (ICD-10 - M25.551) [employer] Other 05-10-2022 Evaluation note* Encounter Date Diagnosis Assessment Notes Treatment Notes Treatment Clinical Notes January, Gastroesophageal ref lux disease, unspecified whether esophagitis present (ICD-10 - K21.9) Continue to take medication as directed. January, PCOS (polycystic ovarian syndrome) (ICD-10 - E28.2) Take medication as directed with food [employer] Other 03-16-2022 Evaluation note* Encounter Date Diagnosis Assessment Notes Treatment Notes Treatment Clinical Notes Nov, Sacral back pain (ICD-10 - M53.3) [employer] Other 02-14-2022 Evaluation note* Encounter Date Diagnosis Assessment Notes Treatment Notes Treatment Clinical Notes Oct, Gastroesophageal ref lux disease, unspecified whether esophagitis present (ICD-10 - K21.9) [employer] Other 02-14-2022 Evaluation note* Encounter Date Diagnosis Assessment Notes Treatment Notes Treatment Clinical Notes Oct, Sacral back pain (ICD-10 - M53.3) [employer] Other 2021 Evaluation note* Encounter Date [...] care instructions given in writting by [facility] document. [employer] Other Evaluation noteNo InformationNortLifecare Behavioral [facility] [employer] Other Evaluation noteNo assessment information available [facility] Work Phone: Evaluation note* Diagnosis Type 2 diabetes mellitus without complication, without long-term current use of insulin ([facility]HCC) documented in this encounter [facility] HealthcareEvaluation note* Diagnosis Type 2 diabetes [...] insulin (CMS/HCC)- Primary documented in this encounter [facility] HealthcareEvaluation note* Diagnosis Type 2 diabetes mellitus [...] Obesity (BMI 30-39.9) documented in this encounter [facility] HealthcareEvaluation note* Diagnosis Type 2 diabetes mellitus [...] esophagitis Esophageal reflux documented in this encounter [facility] HealthcareEvaluation note* Diagnosis Encounter for well woman exam with routine gynecological exam- Primary Encounter for screening mammogram for malignant neoplasm of breast Hypothyroidism, unspecified type (CMS/HCC) Amenorrhea Absence of menstruation Dizziness and giddiness documented in this encounter [facility] HealthcareEvaluation note* Diagnosis Migraine without aura and without status migrainosus, not intractable (CMS/HCC)- Primary Insomnia, unspecified type RLS (restless legs syndrome) Restless legs syndrome (RLS) documented in this encounter [facility] HealthcareEvaluation note* Diagnosis Type 2 diabetes mellitus without complication, without long-term current use of insulin (CMS/[facility])- Primary Primary hypertension (CMS/[facility]) Unspecified essential hypertension Hypothyroidism, unspecified type (CMS/[facility]) Class 1 obesity without serious comorbidity with body mass index (BMI) of 33.0 to 33.9 in adult, unspecified obesity type Gastroesophageal reflux disease without esophagitis Esophageal reflux Varicose veins of both legs with edema EDS (Jen-Danlos syndrome) (CMS/[facility]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-Danlos syndrome Type 2 diabetes mellitus without complication, without long-term current use of insulin (CMS/[facility])- Primary BMI 33.0-33.9,adult Varicose veins [...] complication, without long-term current use of insulin (CMS/[facility]) Primary hypertension (CMS/HCC) Unspecified essential [...] or radiculitis nos documented in this encounter [facility] HealthcareEvaluation note* Diagnosis Type 2 diabetes mellitus without complication, without long-term current use of insulin (CMS/[facility])- Primary Primary hypertension (CMS/HCC) Unspecified [...] legs syndrome (RLS) documented in this encounter [facility] HealthcareEvaluation note* Diagnosis Fibromyalgia Unspecified myalgia and myositis documented in this encounter [facility]* Diagnosis Fibromyalgia Unspecified myalgia and myositis documented in this encounter [facility] SystemEvaluation note* Diagnosis Type 2 diabetes mellitus [...] esophagitis Esophageal reflux documented in this encounter [facility] HealthcareEvaluation note* Diagnosis Type 2 diabetes mellitus without complication, without long-term current use of insulin- Primary Primary hypertension (CMS/HCC) Unspecified essential hypertension Hypothyroidism, unspecified type ([facility]) Class 1 obesity without serious comorbidity with body mass index (BMI) of 33.0 to 33.9 in adult, unspecified obesity type Gastroesophageal reflux disease without esophagitis Esophageal reflux 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 Type 2 diabetes mellitus without complication, without long-term current use of insulin- Primary BMI 33.0-33.9,adult Varicose veins of both [...] complication, without long-term current use of insulin Primary hypertension ([facility]) Unspecified essential hypertension Gastroesophageal reflux disease without esophagitis Esophageal reflux Hypothyroidism, unspecified type ([facility]) Obesity (BMI 30-39.9) Encounter for well woman exam with routine gynecological exam- Primary Encounter for screening mammogram for malignant neoplasm of breast Hypothyroidism, unspecified type ([facility]) Amenorrhea Absence of menstruation Dizziness and giddiness Type 2 diabetes mellitus without complication, without long-term current use of insulin- Primary Hypothyroidism, unspecified type ([facility]/HCC) Primary hypertension ([facility]/HCC) Unspecified essential hypertension Migraine without aura and without status migrainosus, not intractable (CMS/[facility]) Obesity (BMI 30-39.9) Type 2 diabetes mellitus without complication, without long-term current use of insulin- Primary Primary hypertension ([facility]) Unspecified essential hypertension Gastroesophageal reflux disease without esophagitis Esophageal reflux Fibromyalgia Unspecified myalgia and myositis Hypothyroidism, unspecified type (CMS/HCC) Obesity (BMI 30-39.9) Class 1 obesity due to excess calories with serious comorbidity in adult, unspecified BMI Mild episode of recurrent major depressive disorder (HCC) (CMS/HCC) Mixed hyperlipidemia (CMS/HCC) Mixed hyperlipidemia Cervical radiculopathy Brachial neuritis or radiculitis nos Bronchitis with asthma, subacute (CMS/HCC) documented in this encounter [facility] HealthcareHistory general Narrative - Reported* Type Description Date Medical History asthma Medical History pcos Medical History Fibromyalgia Medical History Hypothyroidism - euthyroid Medical History chronic fatigue Surgical History gall bladder Surgical History vein removed in bilaterally Surgical History gastric sleeve Hospitalization History see above Hospitalization History [facility] [employer] Other InstructionsNot on filedocumented in this encounter [facility] [employer] SystemInstructionsNot on filedocumented in this encounter [facility] SystemInstructionsNot on filedocumented in this encounter [facility] SystemReason for visit NarrativeDermatology Referral Update [employer] Other Chief Complaint and Reason for Visit Chief Complaint Ragged cuticle Chief Complaint Admit Date Cough, congestion, shortness of breath A pril 2024 9:10am Reason for Visit Admit Date Bronchitis December 31, 2024 9:10 am Advance Directives No Advanced Directives Records Found Advance Directive Response Recorded Date/ Time Advance Directives No July 12:06pm Latest Code Status on File Code Status Date Activated Date Inactivated Comments Full Code 01/24/2018 11:30 AM 01/26/2018 12:39 PM Date Activated Date Inactivated Comments 01/24/2018 11:30 AM 01/26/2018 12:39 PM Date Activated Date Inactivated Comments 01/24/2018 11:30 AM 01/26/2018 12:39 PM Advance Directive Response Recorded Date/ Time Advance Directives No July 1:06pm Summary Purpose Family History No Family History Records Found Relationship Condition Age at Onset Recorded Date/T raman father History of stroke Unknown Heart disease Unknown grandparent Heart disease Unknown History of stroke Unknown Reason for Referral Specialty Diagnoses / Procedures Referred By Contbernard t Referred To Contact Diagnoses Type 2 diabetes mellitus without complication, without long-term current use of insulin ([facility]) Halima Moncada, NNAMDI [address] [place] [address] Referral ID Status Reason Start Date Expiration Date V isits Requested Visits Authorized [id number] Pending Review 1 1 Additional Source Comments REASON FOR VISIT (unrecogniz ed section and content) Reason Comments Med Refill Reason Comments Migraine Insomnia Restless Legs Reason Comments Migraine Insomnia Restless Legs Reason Comments Migraine Restless Legs Insomnia Reason Comments Diabetes Care Teams (unrecognized sec tion and content) Team Status: Active Member Role Status Dates PHYSICIAN NO FAMILY Primary Care Provider Active Team Status: Inactive Member Role Status Dates PHYSICIAN NO FAMILY Primary Care Provider Active Start: December 31, 2024 End: December 31, 2024 Oumou Martinez APRN Attending Provider Active S tart: December 31, 2024 End: December 31, 2024 Team Status: Active Member Role Status Dates PHYSICIAN NO FAMILY Primary Care Provider Active Start: December 31, 2024 Oumou Martinez APRN Attending Provider Active S tart: December 31, 2024 Team Status: Inactive Member Role Status Dates PHYSICIAN NO FAMILY Primary Care Provider Active CHRISTIANO Jha Attending Provider Active Weaving 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 Relationship Specialty Start Date End Date Javier West MD [address] [place] [address] PCP - General Family Medicine 01/11/24 Halima Moncada NP [address] [place] [address] Nurse Practitioner Family Medicine 06/02/23 Halima Moncada NP [address] [place] [address] Nurse Practitioner Family Medicine 01/11/24 Weaving Teacher Relationship Specialty Start Date End Date Javier West MD [address] [place] [address] PCP - General Family Medicine 01/11/24 Halima Moncada NP [address] [place] [address] Nurse Practitioner Family Medicine 06/02/23 Halima Moncada NP [address] [place] [address] Nurse Practitioner Family Medicine 01/11/24 Weaving Teacher Relationship Specialty Start Date End Date Javier West MD [address] [place] [address] PCP - General Family Medicine 01/11/24 Halima Moncada NP [address] [place] [address] Nurse Practitioner Family Medicine 06/02/23 Halima Moncada NP [address] [place] [address] Nurse Practitioner Family Medicine 01/11/24 Weaving Teacher Relationship Specialty Start Date End Date Javier West MD [address] [place] [address] PCP - General Family Medicine 01/11/24 Halima Moncada NP [address] [place] [address] [facility] Halima Moncada NP [address] [place] [address] Nurse Practitioner Family Medicine 06/02/23 Halima Moncada NP [address] [place] [address] Nurse Practitioner Family Medicine 01/11/24 Weaving Teacher Relationship Specialty Start Date End Date Javier West MD [address] [place] [address] PCP - General Family Medicine 01/11/24 Halima Moncada NP [address] [place] [address] PCP - [facility] 06/27/24 Halima Moncada NP [address] [place] [address] Nurse Practitioner Family Medicine 06/02/23 Halima Moncada NP [address] [place] [address] Nurse Practitioner Family Medicine 01/11/24 Weaving Teacher Relationship Specialty Start Date End Date Javier West MD [address] [place] [address] PCP - General Family Medicine 01/11/24 Halima Moncada NP [address] [place] [address] Nurse Practitioner Family Medicine 06/02/23 Halima Moncada NP [address] [place] [address] Nurse Practitioner Family Medicine 01/11/24 Christine Zimmerman DO [address] [place] [address] Referring Physician Neurology 09/12/24 Weaving Teacher Relationship Specialty Start Date End Date Javier West MD [address] [place] [address] PCP - General Family Medicine 01/11/24 Halima Moncada NP [address] [place] [address] Nurse Practitioner Family Medicine 06/02/23 Halima Moncada NP [address] [place] [address] Nurse Practitioner Family Medicine 01/11/24 Weaving Teacher Relationship Specialty Start Date End Date Javier West MD [address] [place] [address] PCP - General Family Medicine 01/11/24 Halima Moncada NP [address] [place] [address] Nurse Practitioner Family Medicine 06/02/23 Halima Moncada NP [address] [place] [address] Nurse Practitioner Family Medicine 01/11/24 Weaving Teacher Relationship Specialty Start Date End Date Javier West MD [address] [place] [address] PCP - General Family Medicine 01/11/24 Halima Moncada NP [address] [place] [address] Nurse Practitioner Family Medicine 06/02/23 Halima Moncada NP [address] [place] [address] Nurse Practitioner Family Medicine 01/11/24 Weaving Teacher Relationship Specialty Start Date End Date Javier West MD [address] [place] [address] PCP - General Family Medicine 01/11/24 Halima Moncada NP [address] [place] [address] Nurse Practitioner Family Medicine 06/02/23 Halima Moncada NP [address] [place] [address] Nurse Practitioner Family Medicine 01/11/24 Weaving Teacher Relationship Specialty Start Date End Date Javier West MD [address] [place] [address] PCP - General Family Medicine 01/11/24 Halima Moncada NP [address] [place] [address] Nurse Practitioner Family Medicine 06/02/23 Halima Moncada NP [address] [place] [address] Nurse Practitioner Family Medicine 01/11/24 Weaving Teacher Relationship Specialty Start Date End Date Javier West MD [address] [place] [address] PCP - General Family Medicine 01/11/24 Halima Moncada NP [address] [place] [address] Nurse Practitioner Family Medicine 06/02/23 Halima Moncada NP [address] [place] [address] Nurse Practitioner Family Medicine 01/11/24 Weaving Teacher Relationship Specialty Start Date End Date Javier West MD [address] [place] [address] PCP - General Family Medicine 01/11/24 Halima Moncada NP [address] [place] [address] Nurse Practitioner Family Medicine 06/02/23 Halima Moncada NP [address] [place] [address] Nurse Practitioner Family Medicine 01/11/24 Christine Zimmerman DO [address] [place] [address] Referring Physician Neurology 09/12/24 Weaving Teacher Relationship Specialty Start Date End Date Javier West MD [address] [place] [address] PCP - General Family Medicine 01/11/24 Halima Moncada NP [address] [place] [address] Nurse Practitioner Family Medicine 06/02/23 Halima Moncada NP [address] [place] [address] Nurse Practitioner Family Medicine 01/11/24 Christine Zimmerman DO [address] [place] [address] Referring Physician Neurology 09/12/24 Weaving Teacher Relationship Specialty Start Date End Date Javier West MD [address] [place] [address] PCP - General Family Medicine 01/11/24 Halima Moncada NP [address] [place] [address] PCP - [facility] 09/27/24 Halima Moncada NP [address] [place] [address] Nurse Practitioner Family Medicine 06/02/23 Halima Moncada NP [address] [place] [address] Nurse Practitioner Family Medicine 01/11/24 Christine Zimmerman DO [address] [place] [address] Referring Physician Neurology 09/12/24 Weaving Teacher Relationship Specialty Start Date End Date Javier West MD [address] [place] [phone] PCP - General Family Medicine 01/11/24 Halima Moncada NP [address] [place] [phone] PCP - [facility] 09/27/24 Halima Moncada NP [address] [place] [address] Nurse Practitioner Family Medicine 06/02/23 Halima Moncada NP [address] [place] [address] Nurse Practitioner Family Medicine 01/11/24 Christine Zimmerman DO [address] [place] [address] Referring Physician Neurology 09/12/24 Weaving Teacher Relationship Specialty Start Date End Date Mona Morin APRN-FNP [address] [place] [place] [address] PCP - General Family Medicine 01/08/21 Weaving Teacher Relationship Specialty Start Date End Date Mona Morin APRN-FNP [address] [place] [address] PCP - General Family Medicine 01/08/21 Weaving Teacher Relationship Specialty Start Date End Date [facility] [address] [place] [address] PCP - General Family Medicine 01/08/21 Weaving Teacher Relationship Specialty Start Date End Date Javier West MD [address] [place] [address] PCP - General Family Medicine 01/11/24 Halima Moncada NP [address] [place] [address] [facility] 09/27/24 Halima Moncada NP [address] [place] [address] Nurse Practitioner Family Medicine 06/02/23 Halima Moncada NP [address] [place] [address] Nurse Practitioner Family Medicine 01/11/24 Christine Zimmerman DO [address] [place] [address] Referring Physician Neurology 09/12/24 Weaving Teacher Relationship Specialty Start Date End Date Javier West MD [address] [place] [address] PCP - General Family Medicine 01/11/24 Halima Moncada NP [address] [place] [address] PCP - [employer] 09/27/24 Halima Moncada NP [address] [place] [address] Nurse Practitioner Family Medicine 06/02/23 Halima Moncada NP [address] [place] [address] Nurse Practitioner Family Medicine 01/11/24 Christine Zimmerman DO [address] [place] [address] Referring Physician Neurology 09/12/24 Weaving Teacher Relationship Specialty Start Date End Date Javier West MD [address] [place] [address] PCP - General Family Medicine 01/11/24 Halima Moncada NP [address] [place] [address] PCP - [employer] 09/27/24 Halima Moncada NP [address] [place] [address] Nurse Practitioner Family Medicine 06/02/23 Halima Moncada NP [address] [place] [address] Nurse Practitioner Family Medicine 01/11/24 Christine Zimmerman DO [address] [place] [address] Referring Physician Neurology 09/12/24 Goals (unrecognized section and content) Goals may be documented in a n alternate section INFORMATION SOURCE (unrecogn ized section and content) DATE CREATED AUTHOR 01/29/2023 [facility] DATE CREATED AUTHOR AUTHOR'S ORGANIZ ATION 07/24/2024 [facility] DATE CREATED AUTHOR AUTHOR'S ORGANIZ ATION 11/09/2024 [facility] DATE CREATED AUTHOR AUTHOR'S ORGANIZ ATION 12/11/2024 [facility] DATE CREATED AUTHOR AUTHOR'S ORGANIZ ATION 01/06/2025 [facility] DATE CREATED AUTHOR AUTHOR'S ORGANIZ ATION 01/07/2025 [facility] DATE CREATED AUTHOR AUTHOR'S ORGANIZ ATION 01/22/2025 [facility] EPIC FOR RECORDS PERTAINING TO PATIENTS WHO ARE [...] BE BASED ON THE PRIMARY CLINICAL RECORDS. [facility] [employer] provides no warranty or guarantee of the accuracy or completeness of information in this document.
[2025-02-08 09:15] LABS: Basophils Percent Auto 0.8 % (0.2-2.0); Eosinophils Absolute Auto 0.2 10^3/uL (0.0-0.7); Eosinophils Percent Auto 2.9 % (0.9-7.0); Hematocrit 41.5 % (36.0-48.0); Hemoglobin 13.9 g/dL (12.0-16.0); Immature Granulocytes Abs Auto 0.01 10^3/uL (0.00-0.03); Immature Granulocytes Pct Auto 0.2 % (0.0-0.5); Lymphocytes Percent Auto 38.4 % (20.5-60.0); Mean Corpuscular HGB Conc 33.5 g/dL (29.9-35.2); Mean Corpuscular Volume 89.6 fL (81.0-99.0); Mean Platelet Volume 9.4 fL (9.5-13.5); Monocytes Absolute Auto 0.5 10^3/uL (0.3-0.8); Monocytes Percent Auto 10.4 % (1.7-12.0); Neutrophils Absolute Auto 2.4 10^3/uL (1.4-6.5); Neutrophils Percent Auto 47.3 % (43.0-75.0); Platelet Count 277 10^3/uL (150-450); Red Blood Count 4.63 10^6/uL (4.20-5.40); Red Cell Distribution Width 11.9 % (11.0-15.0); White Blood Count 5.1 10^3/uL (4.0-11.0)
[2025-02-08 10:07] LABS: Bilirubin Urine NEGATIVE (NEGATIVE); Blood Urine NEGATIVE (NEGATIVE); Clarity Urine CLEAR (CLEAR); Color Urine LT. YELLOW (YELLOW); Glucose Urine UA NEGATIVE (NEGATIVE); Ketones Urine NEGATIVE (NEGATIVE); Leukocyte Esterase Urine SMALL (NEGATIVE); Nitrite Urine NEGATIVE (NEGATIVE); Protein Urine NEGATIVE (NEG/TRACE); Urobilinogen Urine 0.2 EU/dL (0.2-1.0)
[2025-02-08 10:10] LABS: Urine Microscopic Indicated YES
[2025-02-08 10:46] LABS: Bacteria Urine TRACE #/HPF (NONE SEEN); Cast Seen? NONE SEEN #/LPF (NONE SEEN); Crystals Seen? None Seen #/HPF (None Seen); Mucus Urine TRACE (NONE SEEN); RBC Urine 0-2 #/HPF (0-2); Squamous Epithelial Cell Urine FEW #/LPF (NONE/RARE); WBC Urine 0-2 #/HPF (NONE SEEN)
[2025-02-08 10:50] LABS: Creatinine Urine Random 72.34 mg/dL (20.00-300.00); Microalbum Creatinine Ratio Ur 17.9 mg/g (0.0-29.9); Microalbumin Urine Random <1.3 mg/dL (<=30.0)
[2025-02-08 11:33] LABS: Free T4 1.17 ng/dL (0.76-1.46)
[2025-02-08 11:36] LABS: Alanine Aminotransferase 34 U/L (14-59); Albumin Level 3.8 g/dL (3.4-5.0); Alkaline Phosphatase 81 U/L (46-116); Aspartate Amino Transferase 27 U/L (15-37); BUN Creatinine Ratio 23.7; Bilirubin Total 0.3 mg/dL (0.2-1.0); Calcium 9.4 mg/dL (8.5-10.1); Carbon Dioxide 31.3 mmol/L (21.0-32.0); Chloride 104 mmol/L (98-107); Chol HDL Ratio 2.8; Cholesterol 169 mg/dL (<=200); Estimated GFR (African America >60 (>=60 mL/min/1.73m^2); Estimated GFR (Non-African Ame >60 (>=60 mL/min/1.73m^2); Globulin 3.8 g/dL; Glucose 94 mg/dL (74-106); HDL Cholesterol 61 mg/dL (40-60); Potassium 4.3 mmol/L (3.5-5.1); Sodium 141 mmol/L (136-145); Thyroid Stimulating Hormone 0.309 uIU/mL (0.358-3.740); Total Protein 7.6 g/dL (6.4-8.2); Triglycerides 77 mg/dL (<=150); VLDL CHOLESTEROL 15.4 mg/dL
== END 2025-02-08 08:53 | disposition home or self-care (01) ==
LOC: LAB 08:53
PROVIDERS: PCP Nurse Practitioner; Visit Provider Nurse Practitioner
DX: E78.2 Mixed hyperlipidemia (principal); I10 Essential (primary) hypertension; E03.9 Hypothyroidism, unspecified; E11.9 Type 2 diabetes mellitus without complications; K21.9 Gastro-esophageal reflux disease without esophagitis; E66.9 Obesity, unspecified
CPT/HCPCS: 36415; 80053; 80061; 81001; 82043; 82570; 84439; 84443; 85025

== ENCOUNTER 2025-04-15 15:42 | Emergency (ER) | payer BC, MEDICAID, SELFPAY ==
[2025-04-15 15:45] VITALS: BP 154/82; PULSE 113; TEMP 36.6; O2SAT 99; BMI 34.6
--- OUTSIDE RECORDS SUMMARY | 2025-04-15 15:52 | XMS_ITS | CCD ---
Author Organization [facility] Care Team Providers Care Partition Setter Name Role Phone Kaylie Echeverria Unavailable Mona Morin Unavailable NO FAMILY, PHYSICIAN Primary Care Provider Unava ilCHRISTIANO Lazaro Attending Provider SHANE, MONA Primary Care Unavailable MISC, DR ELIAS Attending Unavailable MISC, DR ELIAS Admitting Unavailable AICHHOLZ, LAST SAWYER HALIMA Consulting Unavailable SHANE, MONA Consulting Unavailable SHANE, MONA Primary Care Unavailable SHANE, MONA Admitting Unavailable SHANE, MONA Attending Unavailable SHANE, MONA Primary Care Unavailable SHANE, MONA Admitting Unavailable SHANE, MONA Attending Unavailable SHANE, MONA Consulting Unavailable Priyanka Jones Unavailable Coral ROTARY DERRICK OPERATOR, Halima Unavailable Javier West MD Primary Care Provider Coral ROTARY DERRICK OPERATOR, Halima Unavailable LESTER VERDUGO Attending Unavailable SHANE, MONA Referring Unavailable SHANE, MONA Primary Care Unavailable Aiclucero ROTARY DERRICK OPERATOR, Halima Unavailable Christine Zimmerman DO Unavailable Coral ROTARY DERRICK OPERATOR, Halima Unavailable TD BERUMEN Attending Unavailable SHANE, MONA Referring Unavailable SHANE, MONA Primary Care Unavailable TD BERUMEN Attending Unavailable SHANE, MONA Referring Unavailable SHANE, MONA Primary Care Unavailable Shane GRILL COOK-REPAIRER FINISHED METAL, Mona Primary Care Provide r Elyssa MCBRIDE, [place] Mosqueda Attending Unavailable Elyssa MCBRIDE, Andmedina Mosqueda Attending Unavailable Elyssa MCBRIDE, Andmedina Mosqueda Attending Unavailable NO FAMILY, PHYSICIAN Primary Care Provider Unava ilable Oumou Martinez APRN Attending Provider [phone] NO FAMILY, PHYSICIAN Primary Care Unavailable Oumou Martinez Attending Unavailable Oumou Martinez Admitting Unavailable CHRISTINE ZIMMERMAN Attending Unavailable AICHHOLZ, HALIMA Attending Unavailable AICHHOLZ, HALIMA Attending Unavailable AICHHOLZ, HALIMA Attending Unavailable GILLMOR, NICOLE Attending Unavailable AICHHOLZ, HALIMA Attending Unavailable AICHHOLZ, HALIMA Attending Unavailable GILLMOR, NICOLE Attending Unavailable GILLMOR, NICOLE Referring Unavailable MADDEN, JAKOB Referring Unavailable MADDEN, JAKOB Referring Unavailable MADDEN, JAKOB Referring Unavailable MADDEN, JAKOB Attending Unavailable Allergies Allergy Classification Reported Allergen(s) Allergy Type Date of Onset Reaction(s) Facility (5 sources) Cephalexin Drug Allergy rash iogyn Other (12 sources) Cephalexin Drug Allergy rash iogyn Other (1 source) Sulfamethoxazole / Trimethoprim Drug Allergy 06-08-20 13 [facility] Repository (1 source) Cephalexin Drug Allergy 01-01-20 25 [facility] Repository (1 source) ALLERGIES NOT ON FILE; Translations: [ALLERGIES NOT ON FILE] Propensity to adverse reactions (disorder) [facility] Repository Medications Current Medications Medication Drug Class(es) Dates Sig (Normalized) Sig (Original) [id number] 200 actuat albuterol 0.09 mg/actuat metered dose [...] 10 days. 20 tablet 01/22/2025 02/01/2025 Active ascorbic acid 1000 mg oral tablet (1 source) Vitamin C take 1 tablet by mouth in the morning Ascorbic Acid (vitamin C) 1000 MG tablet Take 1,000 mg by mouth in the morning and 1,000 mg in the evening. Active atorvastatin 10 mg oral tablet (20 sources) HMG-CoA Reductase Inhibitor Start: 02-23-2024 End: 04-19-2025 take 1 tablet by mouth at bedtime atorvastatin (Lipitor) 10 MG tablet Indications: Type 2 diabetes mellitus without complication, without long-term current use of insulin (HCC) Take 1 tablet (10 mg) by mouth at bedtime 30 tablet 5 03/20/2025 04/19/2025 Active benzonatate 200 mg oral capsule (3 [...] Start: 09-04-2021 take 1 capsule by mo ut three times daily as needed Tessalon Perles [...] oral solution (2 sources) alpha-Adrenergic Agonist, Uncompetitive S-unvryq-P-aspartate Receptor Antagonist, Sigma-1 Agonist Start: 08-31-2021 take 10 mL by mouth every six hours Myturkumm-Jcuetesw-YJ 30-2-10 MG/5ML 10 mL Orally every 6 [...] 50 MCG tablet Indications: Hypothyroidism, unspecified type Take 1 tablet (50 mcg) by mouth in the morning. Take before meals. 30 tablet 5 01/22/2025 Active lisinopril 2.5 mg oral tablet (20 [...] 1 tablet by mouth once Methylprednisolone (Medrol (Royce)) 4 mg tablets,dose pack Active 0 PO [...] Take before meals. 30 capsule 5 01/22/2025 Active Omeprazole 20 mg capsule,delayed release(DR/EC) (2 sources) Start: 12-31-2024 take 1 capsule by mouth once daily Omeprazole 20 mg capsule,delayed release(DR/EC) Active 20 MG PO Daily December 31, 2024 12:00am ondansetron 4 mg oral tablet (20 sources) Serotonin-3 Receptor Antagonist Start: 02-03-2024 ondansetron (Zofran) 4 MG tablet Indications: Migraine without aura and without status migrainosus, not intractable 1 every 8 hours for migraine associated [...] times daily pregabalin 75 mg oral capsule (7 sources) Start: 12-21-2024 take 1 capsule by [...] aura and without status migrainosus, not intractable Take 75 mg by mouth Daily as [...] MG/3ML solution pen-injector (20 sources) Start: 01-22-2025 inject 1 mg by subcutaneous injection every week semaglutide (Ozempic, 1 MG/DOSE,) 4 MG/3ML solution pen-injector Indications: Type 2 diabetes mellitus without complication, without long-term current use of insulin (HCC) Inject 1 mg under the skin 1 (one) time per week for 28 days 3 mL 5 01/22/2025 Active Start: 01-22-2025 End: 02-19-2025 inject 1 mg [...] complication, without long-term current use of insulin ([facility]) Inject 1 mg under the skin 1 [...] (20 sources) Central alpha-2 Adrenergic Agonist Start: 02-22-2025 take 2 tablets by mouth once daily at bedtime tiZANidine (Zanaflex) 4 MG tablet Indications: Cervical radiculopathy TAKE 2 TABLETS BY MOUTH ONCE DAILY AT BEDTIME 60 tablet 5 02/22/2025 Active Start: 07-24-2024 take 1 tablet by alexandria th once daily at bedtime tiZANidine (ZANAFLEX) 4 [...] Problem Date Documented Date Episodic/Chronic Acute bronchitis (6 sources) Subacute bronchitis; Translations: [Acute bronchitis, unspecified] [...] [Chronic fatigue, unspecified] Onset: 09-10-2023 09-10-2023 Chronic Malaise and fatigue (5 sources) Other fatigue; Translations: [Fatigue] Onset: 08-23-2017 08-23-2017 Episodic Menstrual disorders (20 sources) Amenorrhea; Translations: [Amenorrhea, [...] Chronic Other nutritional; endocrine; and metabolic disorders (7 sources) Obesity caused by energy imbalance; Translations: [...] communicable diseases Onset: 08-31-2021 Resolved: 08-31-2021 Episodic Nausea and vomiting (20 sources) Nausea [...] Test Name Value Interpretation Reference Range Facility Office Visiton 02-14-2025 Follow-up visit [id number] Tatiana Sepulveda 1975 F Date Provider Department Center 02/14/2025 Ben-JAKOB MADDEN DCC ONC DCC Family History Problem Relation Age of Onset Hypertension Father Stroke Father Cancer Paternal Grandfather Stroke Paternal Grandmother Family Status - Relation Status Age at Father Paternal Grandfather Paternal Grandmother Level of Service:[address]47 [place] OFFICE/OUTPATIENT NEW MODERATE MDM 45 MINUTES Normal [facility] ALL CBC WITH AUTO DIFFon BASOPHILS ABSOLUTE AUTO 0 [facility] Basophils/100 WBC (Bld) 0.8 % 0.2 - 2.0 % [facility] Eosinophils/100 WBC (Bld) 2.9 % 0.9 - 7.0 % [facility] Erythrocyte distribution width (RBC) [Ratio] 11.9 % 11.0 - 15.0 % [facility] Hematocrit (Bld) [Volume fraction] 41.5 % 36.0 - 48.0 % [facility] ([facility] [Mass/Vol] 13.9 g/dL 12.0 - 16.0 g/dL [facility] IMMATURE GRANULOCYTES ABS AUTO 0.01 [facility] Immature granulocytes/100 WBC (Bld) 0.2 % 0.0 - 0.5 % [facility] Interpretation and review of laboratory results Abnormal [facility] LYMPHOCYTES ABSOLUTE AUTO 2 [facility] Lymphocytes/100 WBC (Bld) 38.4 % 20.5 - 60.0 % [facility] MCH (RBC) [Entitic mass] 30 pg 26.7 - 34.0 pg [facility] MCHC (RBC) [Mass/Vol] 33.5 g/dL 29.9 - 35.2 g/dL [facility] MCV (RBC) [Entitic vol] 89.6 fL 81.0 - 99.0 fL [facility] MONOCYTES ABSOLUTE AUTO 0.5 [facility] Monocytes/100 WBC (Bld) 10.4 % 1.7 - 12.0 % [facility] NEUTROPHILS ABSOLUTE AUTO 2.4 [facility] Neutrophils/100 WBC (Bld) 47.3 % 43.0 - 75.0 % [facility] Platelet mean volume (Bld) [Entitic vol] 9.4 fL Low 9.5 - 13.5 fL [facility] EO # 0.2 [facility] PLT 277 [facility] RBC 4.63 [facility] WBC 5.1 [facility] HbA1c (Bld) [Mass fraction]o n 01-22-2025 Interpretation and review of laboratory results Normal [facility] - Hematology and Cell countson 01-22-2025 HbA1c (Bld) [Mass fraction] 5.60 % [facility] Healthcare X-ray reportOrdered By: Iain Martinez on 12-31-2024 Study report [facility] [place] [address] XRay Report Signed Patient: Tatiana Sepulveda MR# : [id number] : 1975 Acct:[id number] Age/Sex: 49 / F ADM Date: 5 Loc: XDUC Room: Type: [facility] Attending Dr: Oumou Martinez APRN Copies to: Oumou Martinez APRN~ Ordering Provider: Oumou Martinez APRN Date of Service: 12/31/24 XR/XR chest 2V*: COUGH PA AND LATERAL CHEST: CLINICAL HISTORY: Dry cough, fatigue, body COMPARISON: None FINDINGS: Unremarkable cardiomediastinal silhouette. Lungs are clear. No effusion or pneumothorax XR/XR chest 2V* IMPRESSION: NO ACUTE CARDIOPULMONARY ABNORMALITY. Impression dictated by: Roverto Martinez M.D.12/31/2024 10:02 AM Dictation Location: [place] [address] Transcribed By: [facility] 12/31/24 1002 Dictated By: Roverto Martinez MD 12/31/24 0959 Signed By: 12/31/24 1002 [facility] Work Phone: XR chest 2V*on 12-31-2024 XR chest 2V* [facility] [place] [address] [place], [place] [id number] XRay Report Signed Patient: Tatiana Sepulveda MR#: [id number] : 1975 Acct:[id number] Age/Sex: 49 / F ADM Date: 12/31/24 Loc: XDUCLY Room: Type: [facility] Attending Dr: Oumou Martinez GRILL COOK Copies to: Oumou Martinez APRN Ordering Provider: Oumou Martinez APRN Date of Service: 12/31/24 XR/XR chest 2V*: COUGH PA AND LATERAL CHEST: CLINICAL HISTORY: Dry cough, fatigue, body COMPARISON: None FINDINGS: Unremarkable cardiomediastinal silhouette. Lungs are clear. No effusion or pneumothorax XR/XR chest 2V* IMPRESSION: NO ACUTE CARDIOPULMONARY ABNORMALITY. Impression dictated by: Roverto Martinez M.D.12/31/2024 10:02 AM Dictation Location: [place] [address] Transcribed By: [facility] 12/31/24 1002 Dictated By: Roverto Martinez MD 12/31/24 0959 Signed By: 12/31/24 1002 Normal [facility] MR HEAD/BRAIN WO CONon [address] [place] [address] Magnetic Resonance Report Signed Patient: TATIANA SEPULVEDA MR#: [id number] : 1975 Acct:[id number] Age/Sex: 48 / F ADM Date: 10/27/24 Loc: MRI Attending Dr: Christine Zimmerman D.O. Ordering Physician: Christine Zimmerman D.O. Date of Service: 10/27/24 Procedure(s): MR head/brain wo con Accession Number(s): [id number] cc: Halima Moncada ROTARY DERRICK OPERATOR; Christine Zimmerman D.O. [address] [place] [address] Patient Name: TATIANA SEPULVEDA MRN: [facility]:[id number] date: 1975 Sex: F Assigned Patient Location: MRI Current Patient Location: MRI Accession/Order Number: [id number] Exam Date: 10/27/2024 08:53 Report Date: 10/27/2024 [...] Signed By: 10/27/24 1742 DD/ 1739 TD/TT: Patent Attorney: [facility] Radiology, Radiologist, MD - 10/27/2024 [address] [place] [id number] Magnetic Resonance Report Signed Patient: TATIANA SEPULVEDA MR#: [id number] : 1975 Acct:[id number] Age/Sex: 48 / F ADM Date: 10/27/24 Loc: MRI Attending Dr: Christine Zimmerman D.O. Ordering Physician: Christine Zimmerman D.O. Date of Service: 10/27/24 Procedure(s): MR head/brain wo con Accession Number(s): [id number] cc: Halima Moncada NP; Christine Zimmerman D.O. [address] [address] Patient Name: TATIANA SEPULVEDA MRN: [id number] date: 1975 Sex: F Assigned Patient Location: MRI Current Patient Location: MRI Accession/Order Number: [id number] Exam Date: 10/27/2024 08:53 Report Date: 10/27/2024 [...] Le M.D. Signed By: 10/27/24 1742 DD/ 173 TD/TT: Patent Attorney: [facility] Radiology Study observation (narrative) [facility] MR HEAD/BRAIN WO CONOrdered By: Radiologist Radiology on 10-27-2024 [facility] F[facility]ul e Work Phone: MLR HEMOGLOBIN A1Con 024 Glucose [Mass/Vol] 111 mg/dL [facility] HbA1c (Bld) [Mass fraction] 5.5 % 4.5 - 6.2 % [facility] Comment on above: ADA RECOMMENDED LIMI T 4.0 - 6.0 ADA THERAPEUTIC TARGET < 7.0 ACTION SUGGESTED > 7.0 [facility] Fju[facility] e IGP,APTIMA HPV,AGE GDLNon AGE GDLN ACOG TESTING Note . [facility] Comment on above: TESTS RESULT FLAG U NITS REF RANGE LAB Clinician Provided Cytology Information Source.............Cervix;Endocervix No. of containers..01 ThinPrep Vial Age Algo ACOG Prudence... 30-65 01 FLAG LEGEND: L-Low Normal,H-High Normal,LL-Alert Low,HH-Alert High <-Panic Low,>-Panic High,A-Abnormal,AA-Critical Abnormal Performed at: 01 =G [facility] [place] [address] Maren Peña MD, HPV APTIMA Negative Negative [facility] Comment on above: This nucleic acid am plification test detects fourteen high- risk HPV types (16,18,31,33,35,39,45,51,52,56,58,59,66,68) without differentiation. Performed at: =[facility] [id number] Child Care Development Specialist: Maren Peña MD, Phone: [phone] Performed at: - [facility] [address], [place] [id number] Child Care Development Specialist: Maren Peña MD, Phone: [phone] IGP, APTIMA HPV, RFX 16/18,45 Note . [facility] Comment on above: TESTS RESULT FLAG UN ITS REF RANGE LAB DIAGNOSIS: 02 NEGATIVE FOR INTRAEPITHELIAL LESION OR MALIGNANCY. Specimen adequacy: 02 Satisfactory for evaluation. Endocervical and/or squamous metaplastic cells (endocervical component) are present. Performed by: Shauna Hernandez, Criminal Investigator (ASC) . 02 Note: Note 02 The Pap [...] High <-Panic Low,>-Panic High,A-Abnormal,AA-Critical Abnormal Performed at: [facility] [address] [place] [address] Maren Peña MD, CERVIX ENDOCERVIX [facility] ALL THYROID STIM HORMONEon 0 05-26-2024 TSH Qn 3.022 m[IU]/L [facility] No Panel Informationon 05-26 [facility] HealthJalbum e TBH PREG QUANT HCGon 024 HCG QUANTITATIVE <1 mIU/mL [facility] Comment on above: 5-50 0.2-1 WEEK 50-500 1-2 WEEKS 100-5,000 2-3 WEEKS 500-10,000 3-4 WEEKS 1,000-50,000 4-5 WEEKS 10,000-100,000 5-6 WEEKS 15,000-200,000 6-8 WEEKS 10,000-100,000 2-3 MONTHS Quick Strepon 05-03-2023 S. pyogenes Org specific cx Ql (Throat) Negative [facility] [employer] Other Quick Strep [facility] [employer] Other INSULINon 01-26-2023 Insulin 21.3 uIU/mL Normal 2.6-24.9 [facility] Comment on above: Performed By: #### I NSULIN #### [facility] [address] [place] [address] Dr. Yvan Manzano CORTISOLon 01-23-2023 Cortisol 11.2 ug/dL Normal 6.2-19.4 [facility] Comment on above: Result Comment: [place] Note: The reference interval and flagging for this test is for an AM collection. If this is a PM collection please use: Cortisol PM: 2.3-11.9 [facility] also offers: 192951: Cortisol- AM 674111: Cortisol- PM Performed By: #### C BC #### [facility] [address] [place] [address] [address] Yvan Manzano CBC AUTO DIFFon 01-22-2023 BASO # 0.1 103/ul Normal 0.0-0.1 [facility] Comment on above: Performed By: #### C BC #### [facility] [address] [place] [id number] Yvan Manzano Basophils/100 WBC (Bld) 0.9 % Normal 0.2-2.0 [facility] Comment on above: Performed By: #### C BC #### [facility] [address] [place] [address] Dr. Yvan Manzano EO # 0.3 103/ul Normal 0.0-0.7 [facility] Comment on above: Performed By: #### C BC #### [facility] [address] [place] [address] Dr. Yvan Manzano Eosinophils/100 WBC (Bld) 5.7 % Normal 0.9-7.0 [facility] Comment on above: Performed By: #### C BC #### [facility] [address] [place] [address] Dr. Yvan Manzano Erythrocyte distribution width (RBC) [Ratio] 14.6 % Normal 11.0-15.0 [facility] Comment on above: Performed By: #### C BC #### [facility] [address] [place] [address] Dr. Yvan Manzano Hematocrit (Bld) [Volume fraction] 36.8 % Normal 36.0-48.0 [facility] Comment on above: Performed By: #### C BC #### [facility] [address] [place] [address] Dr. Yvan Manzano Hemoglobin (Bld) [Mass/Vol] 11.4 g/dL Critically low 12.0-16.0 [facility] Comment on above: Performed By: #### C BC #### [facility] [address] [place] [address] Dr. Yvan Manzano IG # 0.02 10e3/ul Normal 0.00-0.03 [facility] Comment on above: Performed By: #### C BC #### [facility] [address] [place] [address] Dr. Yvan Manzano IG % 0.3 % Normal 0.0-0.5 [facility] Comment on above: Performed By: #### C BC #### [facility] [address] [place] [address] Dr. Yvan Manzano LYMPH # 1.5 103/ul Normal 1.2-3.8 [facility] Comment on above: Performed By: #### C BC #### [facility] [address] [place] [address] Dr. Yvan Manzano Lymphocytes/100 WBC (Bld) 25.3 % Normal 20.5-60.0 [facility] Comment on above: Performed By: #### C BC #### [facility] [address] [place] [address] Dr. Yvan Manzano MANUAL DIFF REQ NO Normal [facility] Comment on above: Performed By: #### C BC #### [facility] [address] [place] [address] Dr. Yvan Manzano MCH (RBC) [Entitic mass] 25.2 pg Critically low 26.7-34.0 [facility] Comment on above: Performed By: #### C BC #### [facility] [address] [place] [address] Dr. Yvan Manzano MCHC (RBC) [Mass/Vol] 31.0 g/dL Normal 29.9-35.2 [facility] Comment on above: Performed By: #### C BC #### [facility] [address] [place] [address] Dr. Yvan Manzano MCV (RBC) [Entitic vol] 81.4 fL Normal 81.0-99.0 [facility] Comment on above: Performed By: #### C BC #### [facility] [address] [place] [address] Dr. Yvan Manzano MONO # 0.4 103/ul Normal 0.3-0.8 [facility] Comment on above: Performed By: #### C BC #### [facility] [address] [place] [address] Dr. Yvan Manzano Monocytes/100 WBC (Bld) 7.7 % Normal 1.7-12.0 [facility] Comment on above: Performed By: #### C BC #### [facility] [address] [place] [address] Dr. Yvan Manzano NEUT # 3.5 103/ul Normal 1.4-6.5 [facility] Comment on above: Performed By: #### C BC #### [facility] [address] [place] [address] Dr. Yvan Manzano Neutrophils/100 WBC (Bld) 60.1 % Normal 43.0-75.0 [facility] Comment on above: Performed By: #### C BC #### [facility] [address] [place] [address] Dr. Yvan Manzano Platelet mean volume (Bld) [Entitic vol] 8.8 fL Critically low 9.5-13.5 [facility] Comment on above: Performed By: #### C BC #### [facility] [address] [place] [address] Dr. Yvan Manzano PLT 347 103/ul Normal 150-450 [facility] Comment on above: Performed By: #### C BC #### [facility] [address] [place] [address] Dr. Yvan Manzano RBC 4.52 106/ul Normal 4.20-5.40 [facility] Comment on above: Performed By: #### C BC #### [facility] [address] [place] [address] Dr. Yvan Manzano WBC 5.7 103/ul Normal 4.0-11.0 [facility] Comment on above: Performed By: #### C BC #### [facility] [address] [place] [address] Dr. Yvan Manzano FREE T4on 01-22-2023 Free T4 [Mass/Vol] 0.84 ng/dL Normal 0.76-1.46 [facility] Comment on above: Performed By: #### F T4 #### [facility] [address] [place] [address] Dr. Yvan Manzano LIPID PROFILEon 01-22-2023 CHOL-HDL RATIO NORM SEE BELOW Normal [facility] Comment on above: Result Comment: 3.3 - 4.4 LOW RISK 4.4 - 7.1 AVERAGE RISK 7.1 - 11.0 MODERATE RISK >11.0 HIGH RISK Performed By: #### T SH, LIPID #### [facility] [address] [place] [address] Dr. Yvan Manzano Cholesterol [Mass/Vol] 264 mg/dL Critically high <=200 [facility] Comment on above: Performed By: #### T SH, LIPID #### [facility] [address] [place] [address] [address] Yvan Manzano Cholesterol in HDL [Mass/Vol] 52 mg/dL Normal 40-60 [facility] Comment on above: Performed By: #### T SH, LIPID #### [facility] [address] [place] [address] [address] Yvan Manzano Cholesterol in LDL [Mass/Vol] 173.6 mg/dL Normal [facility] Comment on above: Performed By: #### T SH, LIPID #### [facility] [address] [place] [address] [address] Yvan Manzano Cholesterol.total/C holesterol in HDL [Mass ratio] 5.1 {ratio} Normal [facility] Comment on above: Performed By: #### T SH, LIPID #### [facility] [address] [place] [address] [address] Yvan Manzano HDL NORMAL > or = 60 mg/dl - LO W CARDIOVASCULAR RISK <40 mg/dl - HIGH CARDIOVASCULAR RISK Normal [facility] Comment on above: Performed By: #### T SH, LIPID #### [facility] [address] [place] [address] Dr. Yvan Manzano LDL CALC NORMAL SEE BELOW Normal [facility] Comment on above: Result Comment: <100 mg/dl OPTIMAL 100 - 129 mg/dl NEAR OR ABOVE OPTIMAL 130 - 159 mg/dl BORDERLINE HIGH 160 - 189 mg/dl HIGH >190 mg/dl VERY HIGH Performed By: #### T SH, LIPID #### [facility] [address] [place] [address] [address] Yvan Manzano Triglyceride [Mass/Vol] 192 mg/dL Critically high <=150 [facility] Comment on above: Performed By: #### T SH, LIPID #### [facility] [address] [place] [address] [address] Yvan Manazno VLDL CALC 38.4 mg/dL Normal [facility] Comment on above: Performed By: #### T SH, LIPID #### [facility] [address] [place] [address] Dr. Yvan Manzano TSHon 01-22-2023 TSH 5.749 uIU/mL Critically high 0.358-3.740 [facility] Comment on above: Performed By: #### T SH, LIPID #### [facility] [address] [place] [address] Dr. Yvan Manzano GLYCOHEMOGLOBIN A1Con 2022 ADA RECOMMENDATION SEE BELOW Normal [facility] Comment on above: Result Comment: ADA RECOMMENDED LIMIT 4.0 - 6.0 ADA THERAPEUTIC TARGET < 7.0 ACTION SUGGESTED > 7.0 Performed By: #### A 1C #### [facility] [address] [place] [address] Dr. Yvan Manzano Glucose [Mass/Vol] 137 mg/dL Normal [facility] Comment on above: Performed By: #### A 1C #### [facility] [address] [place] [address] Dr. Yvan Manzano HbA1c (Bld) [Mass fraction] 6.4 % Critically high 4.5-6.2 [facility] Comment on above: Performed By: #### A 1C #### [facility] [address] [place] [address] Dr. Yvan Manzano PROF 14(COMP METB)on 023 Albumin [Mass/Vol] 3.4 g/dL Normal 3.4-5.0 [facility] [facility] Comment on above: Performed By: #### C MP #### [facility] [address] [place] [address] Dr. Yvan Manzano Albumin/Globulin [Mass ratio] 0.9 {ratio} Normal [facility] Comment on above: Performed By: #### C MP #### [facility] [address] [place] [address] Dr. Yvan Manzano ALP [Catalytic activity/Vol] 74 U/L Normal 46-116 [facility] Comment on above: Performed By: #### C MP #### [facility] [address] [place] [address] Dr. Yvan Manzano ALT [Catalytic activity/Vol] 25 U/L Normal 14-59 [facility] Comment on above: Performed By: #### C MP #### [facility] [address] [address] [address] Yvan Manzano Anion gap [Moles/Vol] 9.4 mmol/L Normal [facility] Comment on above: Performed By: #### C MP #### [facility] [address] [address] [address] Yvan Manzano AST [Catalytic activity/Vol] 17 U/L Normal 15-37 [facility] Comment on above: Performed By: #### C MP #### [facility] [address] [address] [address] Yvan Manzano Bilirubin [Mass/Vol] 0.1 mg/dL Critically low 0.2-1.0 [facility] Comment on above: Performed By: #### C MP #### [facility] [address] [address] [address] Yvan Manzano Calcium [Mass/Vol] 9.2 mg/dL Normal 8.5-10.1 [facility] [place] Comment on above: Performed By: #### C MP #### [facility] [address] [place] [address] Dr. Yvan Manzano Chloride [Moles/Vol] 101 mmol/L Normal 98-107 [facility] Comment on above: Performed By: #### C MP #### [facility] [address] [address] [address] Yvan Manzano CO2 [Moles/Vol] 30.4 mmol/L Normal 21.0-32.0 [facility] Comment on above: Performed By: #### C MP #### [facility] [address] [address] [address] Yvan Manzano Creatinine [Mass/Vol] 0.71 mg/dL Normal 0.55-1.02 [facility] Comment on above: Performed By: #### C MP #### [facility] [address] [address] [address] Yvan Manzano EGFR-AF BELARUSIAN >60 Normal >=60 [facility] Comment on above: Performed By: #### C MP #### [facility] [address] [address] [address] Yvan Manzano EGFR-NON AF BELARUSIAN >60 Normal >=60 [facility] Comment on above: Performed By: #### C MP #### [facility] [address] [address] [address] Yvan Manzano Globulin (S) [Mass/Vol] 4.0 g/dL Normal [facility] Comment on above: Performed By: #### C MP #### [facility] [address] [address] [address] Yvan Manzano Glucose [Mass/Vol] 138 mg/dL Critically high 74-106 [facility] Comment on above: Performed By: #### C MP #### [facility] [address] [address] [address] Yvan Manzano Potassium [Moles/Vol] 3.8 mmol/L Normal 3.5-5.1 [facility] Comment on above: Performed By: #### C MP #### [facility] [address] [address] [address] Yvan Manzano Protein [Mass/Vol] 7.4 g/dL Normal 6.4-8.2 [facility] Comment on above: Performed By: #### C MP #### [facility] [address] [address] [address] Yvan Manzano Sodium [Moles/Vol] 137 mmol/L Normal 136-145 [facility] Comment on above: Performed By: #### C MP #### [facility] [address] [address] [address] Yvan Manzano Urea nitrogen [Mass/Vol] 13.0 mg/dL Normal 7.0-18.0 [facility] Comment on above: Performed By: #### C MP #### [facility] [address] [address] [address] Yvan Manzano Urea nitrogen/Creatinine [Mass ratio] 18.3 mg/mg Normal [facility] Comment on above: Performed By: #### C MP #### [facility] [address] [address] [address] Yvan Manzano LIPID PROFILEon 03-31-2022 CHOL-HDL RATIO NORM SEE BELOW Normal [facility] Comment on above: Result Comment: 3.3 - 4.4 LOW RISK 4.4 - 7.1 AVERAGE RISK 7.1 - 11.0 MODERATE RISK >11.0 HIGH RISK Performed By: #### C MP, LIPID #### [facility] [address] [address] [address] Yvan Manzano Cholesterol [Mass/Vol] 229 mg/dL Critically high <=200 [facility] Comment on above: Performed By: #### C MP, LIPID #### [facility] [address] [place] [address] Dr. Yvan Manzano Cholesterol in HDL [Mass/Vol] 51 mg/dL Normal 40-60 [facility] Comment on above: Performed By: #### C MP, LIPID #### [facility] [address] [place] [address] Dr. Yvan Manzano Cholesterol in LDL [Mass/Vol] 150.4 mg/dL Normal [facility] Comment on above: Performed By: #### C MP, LIPID #### [facility] [address] [place] [address] Dr. Yvan Manzano Cholesterol.total/C holesterol in HDL [Mass ratio] 4.5 {ratio} Normal [facility] Comment on above: Performed By: #### C MP, LIPID #### [facility] [address] [place] [address] Dr. Yvan Manzano HDL NORMAL > or = 60 mg/dl - LO W CARDIOVASCULAR RISK <40 mg/dl - HIGH CARDIOVASCULAR RISK Normal [facility] Comment on above: Performed By: #### C MP, LIPID #### [facility] [address] [place], [place] [id number] Dr. Yvan Manzano LDL CALC NORMAL SEE BELOW Normal [facility] Comment on above: Result Comment: <100 mg/dl OPTIMAL 100 - 129 mg/dl NEAR OR ABOVE OPTIMAL 130 - 159 mg/dl BORDERLINE HIGH 160 - 189 mg/dl HIGH >190 mg/dl VERY HIGH Performed By: #### C MP, LIPID #### [facility] [address] [address] [address] Yvan Manzano Triglyceride [Mass/Vol] 138 mg/dL Normal <=150 [facility] Comment on above: Performed By: #### C MP, LIPID #### [facility] [address] [address] [address] Yvan Manzano VLDL CALC 27.6 mg/dL Normal [facility] Comment on above: Performed By: #### C MP, LIPID #### [facility] [address] [address] [address] Yvan Manzano MICROALB CREAT RATIO RANDOMo n 03-31-2022 mALB 1.4 mg/L Normal <=30.0 [facility] Comment on above: Performed By: #### M CRR #### [facility] [address] [address] [address] Yvan GROVESB CR RATIO 6.0 mg/g Normal 0.0-29.9 [facility] Comment on above: Performed By: #### M CRR #### [facility] [address] [address] [address] Yvan Manzano MALB CR RATIO RANGE SEE BELOW Normal [facility] Comment on above: Result Comment: NO M ICROALBUMINURIA 0-29 MG/G CLINICAL MICROALBUMINURIA 30-300 MG/G MACROALBUMINURIA >300 MG/G Performed By: #### M CRR #### [facility] [address] [address] [address] Yvan Manzano URINE CREAT 232.88 mg/dL Normal 20.00-300.00 [facility] Comment on above: Performed By: #### M CRR #### [facility] [address] [address] [address] Yvan Manzano PROF 14(COMP METB)on 022 Albumin [Mass/Vol] 3.6 g/dL Normal 3.4-5.0 [facility] [place] Comment on above: Performed By: #### C MP, LIPID #### [facility] [address] [address] [address] Yvan Manzano Albumin/Globulin [Mass ratio] 0.9 {ratio} Normal [facility] Comment on above: Performed By: #### C MP, LIPID #### [facility] [address] [place] [address] Dr. Yvan Manzano ALP [Catalytic activity/Vol] 63 U/L Normal 46-116 [facility] Comment on above: Performed By: #### C MP, LIPID #### [facility] [address] [place] [address] Dr. Yvan Manzano ALT [Catalytic activity/Vol] 33 U/L Normal 14-59 [facility] Comment on above: Performed By: #### C MP, LIPID #### [facility] [address] [place] [address] Dr. Yvan Manzano Anion gap [Moles/Vol] 11.7 mmol/L Normal [facility] Comment on above: Performed By: #### C MP, LIPID #### [facility] [address] [place] [address] Dr. Yvan Manzano AST [Catalytic activity/Vol] 23 U/L Normal 15-37 [facility] Comment on above: Performed By: #### C MP, LIPID #### [facility] [address] [place] [address] Dr. Yvan Manzano Bilirubin [Mass/Vol] 0.2 mg/dL Normal 0.2-1.0 [facility] Comment on above: Performed By: #### C MP, LIPID #### [facility] [address] [place] [address] Dr. Yvan Manzano Calcium [Mass/Vol] 9.5 mg/dL Normal 8.5-10.1 [facility] [place] Comment on above: Performed By: #### C MP, LIPID #### [facility] [address] [place] [address] Dr. Yvan Manzano Chloride [Moles/Vol] 102 mmol/L Normal 98-107 [facility] Comment on above: Performed By: #### C MP, LIPID #### [facility] [address] [place] [address] Dr. Yvan Manzano CO2 [Moles/Vol] 28.0 mmol/L Normal 21.0-32.0 [facility] Comment on above: Performed By: #### C MP, LIPID #### [facility] [address] [place] [address] Dr. Yvan Manzano Creatinine [Mass/Vol] 0.71 mg/dL Normal 0.55-1.02 [facility] Comment on above: Performed By: #### C MP, LIPID #### [facility] [address] [address] [address] Yvan Manzano EGFR-AF BELARUSIAN >60 Normal >=60 [facility] Comment on above: Performed By: #### C MP, LIPID #### [facility] [address] [place] [address] Dr. Yvan Manzano EGFR-NON AF BELARUSIAN >60 Normal >=60 [facility] Comment on above: Performed By: #### C MP, LIPID #### [facility] [address] [place] [address] Dr. Yvan Manzano Globulin (S) [Mass/Vol] 4.0 g/dL Normal [facility] Comment on above: Performed By: #### C MP, LIPID #### [facility] [address] [place] [address] Dr. vYan Manzano Glucose [Mass/Vol] 87 mg/dL Normal 74-106 [facility] Comment on above: Performed By: #### C MP, LIPID #### [facility] [address] [place] [address] Dr. Yvan Manzano Potassium [Moles/Vol] 3.7 mmol/L Normal 3.5-5.1 [facility] Comment on above: Performed By: #### C MP, LIPID #### [facility] [address] [place] [address] Dr. Yvan Manzano Protein [Mass/Vol] 7.6 g/dL Normal 6.4-8.2 [facility] Comment on above: Performed By: #### C MP, LIPID #### [facility] [address] [place] [address] Dr. Yvan Manzano Sodium [Moles/Vol] 138 mmol/L Normal 136-145 [facility] Comment on above: Performed By: #### C MP, LIPID #### [facility] [address] [place], [place] [address] Dr. Yvan Manzano Urea nitrogen [Mass/Vol] 14.0 mg/dL Normal 7.0-18.0 [facility] Comment on above: Performed By: #### C MP, LIPID #### [facility] [address] [place], [place] [address] Dr. Yvan Manzano Urea nitrogen/Creatinine [Mass ratio] 19.7 mg/mg Normal [facility] Comment on above: Performed By: #### C MP, LIPID #### [facility] [address] [place], [place] [address] Dr. Yvan Manzano COVID Quick Testingon 2020 Result Negative [facility] Other Vital Signs Date Time Vital Sign Value Performing Clinician Facility 01-22-2025 09:12-0400 Body mass index (BMI) [Ratio] 34.09 kg/m2 Halima Moncada [employer] Work Phone: [facility] 01-22-2025 09:12-0400 Body temperature 98.01 [degF] Halima Moncada [employer] OPERATOR Work Phone: [facility] 01-22-2025 09:12-0400 Body weight 84.55 kg Halima Moncada [employer] OPERATOR Work Phone: [facility] 01-22-2025 09:12-0400 Diastolic blood pressure 90 mm[Hg] Halima Moncada [employer]ARY [employer] OPERATOR Work Phone: [facility] 01-22-2025 09:12-0400 Heart rate 89 /min Halima Moncada [employer] OPERATOR Work Phone: [facility] 01-22-2025 09:12-0400 Respiratory rate 20 /min Halima Moncada [employer] OPERATOR Work Phone: [facility] 01-22-2025 09:12-0400 SaO2% (BldA) [Mass fraction] 93 % Halima Moncada [employer] OPERATOR Work Phone: [facility] 01-22-2025 09:12-0400 Systolic blood pressure 126 mm[Hg] Halima Moncada [employer] OPERATOR Work Phone: [facility] 12-31-2024 09:14-0400 Body height 154.94 cm PHYSICIAN NO [facility] 12-31-2024 09:14-0400 Body mass index (BMI) [Ratio] 36.1 kg/m2 PHYSICIAN NO [facility] 12-31-2024 09:14-0400 Body temperature 98.6 [degF] PHYSICIAN NO [facility] 12-31-2024 09:14-0400 Body weight 86.63 kg PHYSICIAN NO [facility] 12-31-2024 09:14-0400 Diastolic blood pressure 79 mm[Hg] PHYSICIAN NO [facility] 12-31-2024 09:14-0400 Heart rate 104 /min PHYSICIAN NO [facility] 12-31-2024 09:14-0400 Respiratory rate 16 /min PHYSICIAN NO [facility] 12-31-2024 09:14-0400 SaO2% (BldA) [Mass fraction] 96 % PHYSICIAN NO [facility] 12-31-2024 09:14-0400 Systolic blood pressure 118 mm[Hg] PHYSICIAN NO [facility] 11-06-2024 12:48-0500 Body height 157.5 cm Christine Sanjeev DO Work Phone: [facility] 11-06-2024 12:48-0500 Body mass index (BMI) [Ratio] 33.36 kg/m2 Christine Sanjeev DO Work Phone: [facility] 11-06-2024 12:48-0500 Body weight 82.74 kg Christine Sanjeev DO Work Phone: [facility] 11-06-2024 12:48-0500 Diastolic blood pressure 78 mm[Hg] Christine Sanjeev DO Work Phone: [facility] 11-06-2024 12:48-0500 Heart rate 63 /min Christine Sanjeev DO Work Phone: [facility] 11-06-2024 12:48-0500 SaO2% (BldA) [Mass fraction] 96 % Christine Zimmerman DO Work Phone: [facility] 11-06-2024 12:48-0500 Systolic blood pressure 116 mm[Hg] Christine Zimmerman DO Work Phone: [facility] 09-12-2024 09:39-0500 Body height 154.9 cm Nicole Gillmor [employer] OPERATOR Work Phone: [facility] 09-12-2024 09:39-0500 Body mass index (BMI) [Ratio] 33.63 kg/m2 Nicole Susiemor [employer]ARY [employer] OPERATOR Work Phone: [facility] 09-12-2024 09:39-0500 Body weight 80.74 kg Nicole Susiemor [employer]ARY D[employer]ICK OPERATOR Work Phone: [facility] 09-12-2024 09:39-0500 Diastolic blood pressure 81 mm[Hg] Nicole Susiemor R[employer]ARY DERRICK OPERATOR Work Phone: [facility] 09-12-2024 09:39-0500 Heart rate 95 /min Nicole Susiemor [employer]ARY D[employer]ICK OPERATOR Work Phone: [facility] 09-12-2024 09:39-0500 Systolic blood pressure 128 mm[Hg] Nicole Susiemor ROTARY DERRICK OPERATOR Work Phone: [facility] 07-25-2024 08:49-0400 Body height 154.9 cm Halima Moncada [employer] OPERATOR Work Phone: [facility] 07-25-2024 08:49-0400 Body mass index (BMI) [Ratio] 33.67 kg/m2 Halima Coral [employer] OPERATOR Work Phone: [facility] 07-25-2024 08:49-0400 Body temperature 98.4 [degF] Halima Coral [employer] OPERATOR Work Phone: [facility] 07-25-2024 08:49-0400 Body weight 80.83 kg Halima Coral [employer]ICK OPERATOR Work Phone: [facility] 07-25-2024 08:49-0400 Diastolic blood pressure 78 mm[Hg] Halimanargis Barkerstarlaholz [employer] D[employer]ICK OPERATOR Work Phone: [facility] 07-25-2024 08:49-0400 Heart rate 101 /min Halima Lucerostarlaholz [employer]ARY D[employer]ICK OPERATOR Work Phone: [facility] 07-25-2024 08:49-0400 Respiratory rate 18 /min Halima Lucerostarlaholz ROTARY DERRICK OPERATOR Work Phone: [facility] 07-25-2024 08:49-0400 SaO2% (BldA) [Mass fraction] 98 % Halima Luceroniravz [employer]ARY D[employer]ICK OPERATOR Work Phone: [facility] 07-25-2024 08:49-0400 Systolic blood pressure 112 mm[Hg] Halima Stephanieholz [employer]OTARY D[employer]ICK OPERATOR Work Phone: [facility] 07-24-2024 10:08-0400 Body height 154.9 cm Lester Verdugo MD Work Phone: [facility] 07-24-2024 10:08-0400 Body mass index (BMI) [Ratio] 33.65 kg/m2 Lester Verdugo MD Work Phone: [facility] 07-24-2024 10:08-0400 Body weight 80.74 kg Lester Verdugo MD Work Phone: [facility] 07-24-2024 10:08-0400 Diastolic blood pressure 84 mm[Hg] Lester Verdugo MD Work Phone: [facility] 07-24-2024 10:08-0400 Respiratory rate 18 /min Lester Verdugo MD Work Phone: [facility] 07-24-2024 10:08-0400 Systolic blood pressure 128 mm[Hg] Lester Verdugo MD Work Phone: [facility] 06-20-2024 09:34-0400 Body height 154.9 cm Nicole Richardsmor R[employer]ICK OPERATOR Work Phone: [facility] 06-20-2024 09:34-0400 Body mass index (BMI) [Ratio] 33.44 kg/m2 Nicole Susiemor R[employer]ARY [employer]ICK OPERATOR Work Phone: [facility] 06-20-2024 09:34-0400 Body weight 80.29 kg Nicole Susiemor ROTARY DERRICK OPERATOR Work Phone: [facility] 06-20-2024 09:34-0400 Diastolic blood pressure 84 mm[Hg] Nicole Susiemor ROTARY DERRICK OPERATOR Work Phone: [facility] 06-20-2024 09:34-0400 Heart rate 86 /min Nicole Susiemor ROTARY DERRICK OPERATOR Work Phone: [facility] 06-20-2024 09:34-0400 Systolic blood pressure 128 mm[Hg] Nicole Susiemor ROTARY DERRICK OPERATOR Work Phone: [facility] 05-25-2024 10:35-0400 Body height 154.9 cm Halima Aichholz [employer]ARY D[employer]ICK OPERATOR Work Phone: [facility] 05-25-2024 10:35-0400 Body mass index (BMI) [Ratio] 33.22 kg/m2 Halima Aichholz [employer]ICK OPERATOR Work Phone: [facility] 05-25-2024 10:35-0400 Body temperature 98.49 [degF] Halima Aichholz ROTARY D[employer]ICK OPERATOR Work Phone: [facility] 05-25-2024 10:35-0400 Body weight 79.74 kg Halima Aichholz ROTARY D[employer]ICK OPERATOR Work Phone: [facility] 05-25-2024 10:35-0400 Diastolic blood pressure 76 mm[Hg] Halima Aichholz ROTARY DERRICK OPERATOR Work Phone: [facility] 05-25-2024 10:35-0400 Heart rate 92 /min Halima Aichholz R[employer]ARY D[employer]ICK OPERATOR Work Phone: [facility] 05-25-2024 10:35-0400 Respiratory rate 18 /min Halima Aichholz ROTARY DERRICK OPERATOR Work Phone: [facility] [employer] 05-25-2024 10:35-0400 SaO2% (BldA) [Mass fraction] 99 % Halima Moncada ROTARY DERRICK OPERATOR Work Phone: [facility] [employer] 05-25-2024 10:35-0400 Systolic blood pressure 108 mm[Hg] Halima Moncada ROTARY DERRICK OPERATOR Work Phone: [facility] [employer] 05-03-2023 09:05-0400 Body height 157.48 cm Priyanka Jones Other [facility] Other 05-03-2023 09:05-0400 Body mass index (BMI) [Ratio] 35.02 kg/m2 Priyanka Jones Other [facility] Other 05-03-2023 09:05-0400 Body temperature 97.5 [degF] Priyanka Jones Other [facility] Other 05-03-2023 09:05-0400 Body weight 86.86 kg Priyanka Jones Other [facility] Other 05-03-2023 09:05-0400 Diastolic blood pressure 76 mm[Hg] Priyanka Jones Other [facility] Other 05-03-2023 09:05-0400 Respiratory rate 18 /min Priyanka Jones Other [facility] Other 05-03-2023 09:05-0400 SaO2% (BldA) [Mass fraction] 100 % Priyanka Jones Other [facility] Other 05-03-2023 09:05-0400 Systolic blood pressure 117 mm[Hg] Priyanka Jones Other [facility] Other 11-17-2022 11:30-0500 Body height 157.48 cm Mona Morin Other [facility] Other 11-17-2022 11:30-0500 Body mass index (BMI) [Ratio] 35.3 kg/m2 Mona Morin Other [facility] Other 11-17-2022 11:30-0500 Body temperature 98.7 [degF] Mona Morin Other [facility] Other 11-17-2022 11:30-0500 Body weight 87.54 kg Mona Yeungault Other [facility] Other 11-17-2022 11:30-0500 Respiratory rate 18 /min Mona Morin Other [facility] Other 11-17-2022 11:30-0500 SaO2% (BldA) [Mass fraction] 98 % Mona Morin Other [facility] Other 09-28-2022 16:30-0500 Body height 157.48 cm Mona Yeungault Other [facility] Other 09-28-2022 16:30-0500 Body mass index (BMI) [Ratio] 35.3 kg/m2 Mona Yeungault Other [facility] Other 09-28-2022 16:30-0500 Body temperature 98 [degF] Mona Yeungault Other [facility] Other 09-28-2022 16:30-0500 Body weight 87.54 kg Mona Morin Other [facility] Other 09-28-2022 16:30-0500 Diastolic blood pressure 79 mm[Hg] Mona Morin Other [facility] Other 09-28-2022 16:30-0500 Respiratory rate 18 /min Mona Morin Other [facility] Other 09-28-2022 16:30-0500 SaO2% (BldA) [Mass fraction] 98 % Mona Morin Other [facility] Other 09-28-2022 16:30-0500 Systolic blood pressure 130 mm[Hg] Mona Morin Other [facility] Other 07-14-2022 15:00-0400 Body height 157.48 cm Mona Morin Other [facility] Other 07-14-2022 15:00-0400 Body mass index (BMI) [Ratio] 35.66 kg/m2 Mona Morin Other [facility] Other 07-14-2022 15:00-0400 Body weight 88.45 kg Mona Morin Other [facility] Other 07-14-2022 15:00-0400 Diastolic blood pressure 89 mm[Hg] Mona Morin Other [facility] Other 07-14-2022 15:00-0400 Respiratory rate 18 /min Mona Morin Other [facility] Other 07-14-2022 15:00-0400 SaO2% (BldA) [Mass fraction] 98 % Mona Morin Other [facility] Other 07-14-2022 15:00-0400 Systolic blood pressure 145 mm[Hg] Mona Morin Other [facility] Other 06-30-2022 12:00-0400 Body height 157.48 cm Mona Morin Other [facility] Other 06-30-2022 12:00-0400 Body mass index (BMI) [Ratio] 35.48 kg/m2 Mona Morin Other [facility] Other 06-30-2022 12:00-0400 Body temperature 97.7 [degF] Mona Yeungault Other [facility] Other 06-30-2022 12:00-0400 Body weight 88 kg Mona Morin Other [facility] Other 06-30-2022 12:00-0400 Diastolic blood pressure 87 mm[Hg] Mona Morin Other [facility] Other 06-30-2022 12:00-0400 Respiratory rate 18 /min Mona Morin Other [facility] Other 06-30-2022 12:00-0400 SaO2% (BldA) [Mass fraction] 97 % Mona Yeungault Other [facility] Other 06-30-2022 12:00-0400 Systolic blood pressure 136 mm[Hg] Mona Yeungault Other [facility] Other 02-03-2022 11:00-0400 Body height 157.48 cm Mona Morin Other [facility] Other 02-03-2022 11:00-0400 Body mass index (BMI) [Ratio] 35.84 kg/m2 Mona Morin Other [facility] Other 02-03-2022 11:00-0400 Body temperature 98.2 [degF] Mona Morin Other [facility] Other 02-03-2022 11:00-0400 Body weight 88.91 kg Mona Morin Other [facility] Other 02-03-2022 11:00-0400 Diastolic blood pressure 96 mm[Hg] Mona Morin Other [facility] Other 02-03-2022 11:00-0400 Respiratory rate 18 /min Mona Morin Other [facility] Other 02-03-2022 11:00-0400 SaO2% (BldA) [Mass fraction] 99 % Mona Morin Other [facility] Other 02-03-2022 11:00-0400 Systolic blood pressure 157 mm[Hg] Mona Morin Other [facility] Other 08-31-2021 10:00-0500 Body height 157.48 cm Kaylie Echeverria Other [facility] Other 08-31-2021 10:00-0500 Body mass index (BMI) [Ratio] 35.66 kg/m2 Kaylie Maynardy Other [facility] Other 08-31-2021 10:00-0500 Body temperature 98.7 [degF] Kaylie Ginty Other [facility] Other 08-31-2021 10:00-0500 Body weight 88.45 kg Kaylie Ginty Other [facility] Other 08-31-2021 10:00-0500 Respiratory rate 18 /min Kaylie Devoranty Other [facility] Other 08-31-2021 10:00-0500 SaO2% (BldA) [Mass fraction] 95 % Kaylie Devoranty Other [facility] Other Encounters Encounter Date Encounter Type Care Provider Facility Start: 03-20-2025 End: 03-20-2025 Refill Halima Aichholz [employer] OPERATOR Work Phone: [facility] Comment on above: Type 2 diabetes jordin itus without complication, without long- term current use of insulin ([facility]) Start: 02-15-2025 End: 02-15-2025 ambulatory HALIMA AICHHOLZ Not Available Start: 02-14-2025 ambulatory JAKOB chicas of [facility] Start: 02-08-2025 End: 02-08-2025 Clinisync Result Encounter Halima Aichholz [employer] OPERATOR Work Phone: [facility] Unsolicited Start: 02-08-2025 End: 02-08-2025 Clinisync Result Encounter Halima Aichholz [employer]ARY DERRICK OPERATOR Work Phone: [facility] Unsolicited Start: 01-22-2025 End: 01-22-2025 Bamboo flowsheet Halima Aicstarlaholz [employer] DERRICK OPERATOR Work Phone: [facility] Start: 01-22-2025 End: 01-22-2025 Bamboo flowsheet Halima Moncada R[employer]ARY DERRICK OPERATOR Work Phone: [facility] Start: 01-22-2025 End: 01-22-2025 Office outpatient visit 25 minutes Halima Moncada [employer] OPERATOR Work Phone: [facility] Comment on [...] major depressive disorder (HCC) (CMS/HCC); Mixed hyperlipidemia ([facility]/HCC); Cervical radiculopathy; Bronchitis with asthma, subacute ([facility]) Start: 01-22-2025 End: 01-22-2025 ambulatory HALIMA MONCADA Not Available Start: 01-03-2025 End: 01-03-2025 ambulatory [facility] Start: 01-03-2025 End: 01-03-2025 ambulatory [facility] Start: 12-31-2024 End: 12-31-2024 ambulatory PHYSICIAN [facility] Work Phone: Start: 12-31-2024 End: 12-31-2024 Patient encounter procedure PHYSICIAN [facility] Work Phone: Start: 12-04-2024 End: 12-04-2024 ambulatory Montana Bergeron MD Facility:[facility] Start: 11-21-2024 End: 11-21-2024 Refill Halima Moncada ROTARY DERRICK OPERATOR Work Phone: [facility] Comment on above: Gastroesophageal ref lux disease without esophagitis Start: 11-07-2024 End: 11-07-2024 ambulatory [facility] Start: 11-06-2024 End: 11-06-2024 Bamboo flowsheet Christine Zimmerman DO Work Phone: [facility] Start: 11-06-2024 End: 11-06-2024 Bamboo flowsheet Christine Zimmerman DO Work Phone: [facility] Start: 11-06-2024 End: 11-06-2024 Office outpatient visit 25 minutes Christine Zimmerman DO Work Phone: [facility] Comment on above: Transient alteration of awareness (Primary Dx); Speech disturbance, unspecified type; Migraine without aura and without status migrainosus, not intractable (CMS/HCC); Insomnia, unspecified type; Carpal tunnel syndrome, unspecified laterality; RLS (restless legs syndrome) Start: 11-06-2024 End: 11-06-2024 ambulatory CHRISTINE ZIMMERAMN Not Available Start: 10-27-2024 End: 10-27-2024 Clinisync Result Encounter Christine Zimmerman DO Work Phone: [facility] External Department Unsolicited Start: 10-27-2024 End: 10-27-2024 Clinisync Result Encounter Christine Zimmerman DO Work Phone: [facility] External Department Unsolicited Start: 09-14-2024 End: 09-14-2024 ambulatory NICOLE CHENR Not Available Start: 09-12-2024 End: 09-12-2024 Bamboo flowsheet Nicole Susiemor ROTARY DERRICK OPERATOR Work Phone: [facility] [address] Start: 09-12-2024 End: 09-12-2024 Bamboo flowsheet Nicole Gillmor ROTARY DERRICK OPERATOR Work Phone: [facility] [address] Start: 09-12-2024 End: 09-12-2024 Office outpatient visit 25 minutes Nicole Guzman ROTARY DERRICK OPERATOR Work Phone: [facility] [address] Comment on above: Transient alteration of awareness (Primary Dx); Speech disturbance, unspecified type; Migraine without aura and without status migrainosus, not intractable (CMS/HCC); RLS (restless legs syndrome); Cervical radiculopathy Start: 09-12-2024 End: 09-12-2024 ambulatory NICOLE GUZMAN Not Available Start: 08-18-2024 End: 08-18-2024 Refill Javier West MD Work Phone: [facility] Comment on above: Gastroesophageal ref lux disease without esophagitis Start: 08-08-2024 End: 08-08-2024 Clinisync Result Encounter Halima Aichholz ROTARY DERRICK OPERATOR Work Phone: [facility] External Department Unsolicited Start: 08-08-2024 End: 08-08-2024 Clinisync Result Encounter Halima Aichholz ROTARY DERRICK OPERATOR Work Phone: [facility] External Department Unsolicited Start: 07-25-2024 End: 07-25-2024 Bamboo flowsheet Halima Aichholz ROTARY DERRICK OPERATOR Work Phone: [facility] Start: 07-25-2024 End: 07-25-2024 Bamboo flowsheet Halima Aichholz ROTARY DERRICK OPERATOR Work Phone: [facility] Start: 07-25-2024 End: 07-25-2024 Office outpatient visit 25 minutes Halima Aichholz ROTARY DERRICK OPERATOR Work Phone: [facility] Comment on above: Type 2 diabetes jordin itus without complication, without long- term current use of insulin ([facility]) (Primary Dx); Hypothyroidism, unspecified type ([facility]); Primary hypertension ([facility]); Migraine without aura and without status migrainosus, not intractable ([facility]); Obesity (BMI 30-39.9) Start: 07-25-2024 End: 07-25-2024 ambulatory HALIMA AICHHOLZ Not Available Start: 07-24-2024 End: 07-24-2024 Office outpatient visit 25 minutes Lester Verdugo MD Work Phone: [facility] Comment on above: Fibromyalgia Start: 07-24-2024 End: 07-24-2024 ambulatory LESTER VERDUGO [facility] Start: 07-10-2024 End: 07-10-2024 Refill Halima Aichholz ROTARY DERRICK OPERATOR Work Phone: [facility] Comment on above: Type 2 diabetes jordin itus without complication, without long- term current use of insulin ([facility]) (Primary Dx) Start: 06-29-2024 End: 06-29-2024 Refill Halima Aichholz ROTARY DERRICK OPERATOR Work Phone: [facility] Comment on above: Type 2 diabetes jordin itus without complication, without long- term current use of insulin ([facility]) Start: 06-28-2024 End: 06-28-2024 Refill Halima Aichholz ROTARY DERRICK OPERATOR [facility] Comment on above: Type 2 diabetes jordin itus without complication, without long- term current use of insulin ([facility]) Start: 06-20-2024 End: 06-20-2024 Bamboo flowsheet Nicole Guzman ROTARY DERRICK OPERATOR Work Phone: [facility] Start: 06-20-2024 End: 06-20-2024 Bamboo flowsheet Nicole Guzman ROTARY DERRICK OPERATOR Work Phone: [facility] Start: 06-20-2024 End: 06-20-2024 Office outpatient visit 25 minutes Nicole Guzman ROTARY DERRICK OPERATOR Work Phone: [facility] Comment on above: Migraine without aur a and without status migrainosus, not intractable ([facility]) (Primary Dx); Insomnia, unspecified type; RLS (restless legs syndrome) Start: 06-20-2024 End: 06-20-2024 ambulatory NICOLE GUZMAN Not Available Start: 06-19-2024 End: 06-19-2024 Refill Lester Verdugo MD Work Phone: [facility] Comment on above: Fibromyalgia Start: 05-26-2024 End: 05-26-2024 Clinisync Result Encounter Halima Aichholz ROTARY DERRICK OPERATOR Work Phone: [facility] External Department Unsolicited Start: 05-26-2024 End: 05-26-2024 Clinisync Result Encounter Halima Aichholz ROTARY DERRICK OPERATOR Work Phone: [facility] External Department Unsolicited Start: 05-25-2024 End: 05-25-2024 Bamboo flowsheet Halima Moncada ROTARY DERRICK OPERATOR Work Phone: [facility] Start: 05-25-2024 End: 05-31-2024 Bamboo flowsheet Halima Moncada ROTARY DERRICK OPERATOR Work Phone: [facility] Start: 05-25-2024 End: 05-31-2024 Clinisync Result Encounter Halima Moncada ROTARY DERRICK OPERATOR Work Phone: [facility] External Department Unsolicited Start: 05-25-2024 End: 05-25-2024 Patient encounter procedure Halima Moncada ROTARY DERRICK OPERATOR Work Phone: [facility] Start: 05-25-2024 End: 05-25-2024 Periodic preventive med est patient 40-64yrs Halima Moncada ROTARY DERRICK OPERATOR Work Phone: [facility] Comment on above: Encounter for well w roxy exam with routine gynecological exam (Primary Dx); Encounter for screening mammogram for malignant neoplasm of breast; Hypothyroidism, unspecified type (CMS/HCC); Amenorrhea; Dizziness and giddiness Start: 05-25-2024 End: 05-25-2024 ambulatory HALIMA MONCADA Not Available Start: 04-12-2024 End: 04-12-[address] [facility] Start: 02-28-2024 End: 02-28-2024 ambulatory [facility] Start: 02-23-2024 End: 02-23-2024 ambulatory HALIMA MONCADA Not Available Start: 01-17-2024 End: 01-17-2024 ambulatory [facility] Start: 12-24-2023 Telephone encounter Saeid Gooden [facility] Start: 05-03-2023 End: 05-03-2023 ambulatory Priyanka Anguiano iogyn Other Start: 05-03-2023 Office outpatient vi sit 15 minutes Priyanka Jones [facility] Start: 01-22-2023 End: 01-23-2023 ambulatory MONA MORIN Facility: Start: 11-23-2022 End: 11-23-2022 ambulatory Mona Morin Other iogyn Other Start: 11-23-2022 Telephone encounter Mona Palmercarolann barrett [facility] Start: 11-20-2022 End: 11-20-2022 ambulatory Mona Morin Other iogyn Other Start: 11-20-2022 Encounter by computer link Monamnoty Morin [facility] Start: 11-17-2022 End: 11-18-2022 ambulatory MONA MORIN iogyn Other Start: 11-17-2022 Office outpatient vi sit 15 minutes Mona Yeungault [facility] Start: 10-06-2022 End: 10-06-2022 ambulatory Mona Morin Other iogyn Other Start: 10-06-2022 Telephone encounter Mona Palmerl t [facility] Start: 09-29-2022 End: 09-29-2022 ambulatory PHYSICIAN NO [facility] Work Phone: Start: 09-29-2022 End: 09-29-2022 Departed Referred PHYSICIAN NO [facility] [place] Work Phone: Start: 09-28-2022 End: 09-28-2022 ambulatory Mona Morin Other iogyn Other Start: 09-28-2022 Office outpatient vi sit 15 minutes Mona Shane [facility] Start: 09-14-2022 End: 09-14-2022 ambulatory Mona Shane Other iogyn Other Start: 09-14-2022 Telephone encounter Mona Breaul t [facility] Start: 07-14-2022 End: 07-14-2022 ambulatory Mona Shane Other iogyn Other Start: 07-14-2022 Office outpatient vi sit 15 minutes Mona Shane [facility] Start: 06-30-2022 End: 06-30-2022 ambulatory Mona Shane Other iogyn Other Start: 06-30-2022 Office outpatient vi sit 15 minutes Mona Shane [facility] Start: 04-02-2022 End: 04-02-2022 ambulatory Mona Shane Other iogyn Other Start: 04-02-2022 Telephone encounter Mona Breaul t [facility] Start: 03-31-2022 Telephone encounter Mona Breaul t [facility] Start: 03-31-2022 End: 04-01-2022 ambulatory MONA SHANE iogyn Other Start: 02-03-2022 End: 02-03-2022 ambulatory Mona Shane Other iogyn Other Start: 02-03-2022 Office outpatient vi sit 15 minutes Mona Shane [facility] Start: 12-10-2021 End: 12-10-2021 ambulatory Mona Shane Other iogyn Other Start: 12-10-2021 Telephone encounter Mona Breaul t [facility] Start: 11-10-2021 End: 11-10-2021 ambulatory Mona Yeungault Other iogyn Other Start: 11-10-2021 Telephone encounter Mona Yeungtammy barrett [facility] Start: 09-03-2021 End: 09-03-2021 ambulatory Kaylie Ginty Other iogyn Other Start: 09-03-2021 Telephone encounter Kaylie Ginty [facility] Start: 08-31-2021 End: 08-31-2021 ambulatory Kaylie Ginty Other iogyn Other Start: 08-31-2021 Office outpatient vi sit 15 minutes Kaylie Ginty [facility] Procedures Date Procedure Procedure Detail Performing Clinician Start: 02-08-2025 ALL CBC WITH AUTO DIFF Halima Jhonz ROTARY DERRICK OPERATOR Work Phone: Start: 01-22-2025 Hemoglobin glycosyla ariel a1c Halima Aichholz ROTARY DERRICK OPERATOR Work Phone: Start: 12-31-2024 Plain chest X-ray PHYSI DO NO FAMILY Start: 10-27-2024 MR HEAD/BRAIN WO CON Ni marylou Sanjeev DO Work Phone: Start: 09-13-2024 Mammography Nicole monique ROTARY DERRICK OPERATOR Work Phone: Start: 08-08-2024 MLR HEMOGLOBIN A1C Halima Aichholz ROTARY DERRICK OPERATOR Work Phone: Start: 05-26-2024 ALL THYROID STIM HORMONE Halima Aichholz ROTARY DERRICK OPERATOR Work Phone: Start: 05-26-2024 TBH PREG QUANT HCG Halima Aicstarlaholz ROTARY DERRICK OPERATOR Work Phone: Start: 05-25-2024 IGP,APTIMA HPV,AGE GDLN Halima Aichholz ROTARY DERRICK OPERATOR Work Phone: Start: 09-13-2023 Mammography Halima Guillermina grande ROTARY DERRICK OPERATOR Work Phone: Start: 11-25-2020 Microscopic observat ion [Identifier] in Cervix by Cyto stain Halima Moncada NP Work Phone: Start: 10-11-2017 Mammography Saeid hogue HOT END OPERATOR Start: 02-05-2017 Microscopic observat ion [Identifier] in Cervix by Cyto stain Saeid Gooden HOT END OPERATOR Plan of Treatment Date Care Activity Detail Author Start: 05-25-2029 Screening for malignant neoplasm of cervix [facility] Start: 05-28-2026 Glaucoma screening Diabetes: Retinopathy Screening [facility] Start: 02-08-2026 Urine screening for protein Diabetes: Urine Protein Screening [facility] Start: 09-13-2025 Screening for malignant neoplasm of breast Mammogram [facility] Start: 07-24-2025 Adult BMI Screening Adult BMI Screening [facility] Start: 07-24-2025 Hemoglobin A1c measurement Diabetes: Hemoglobin A1C [facility] Start: 07-24-2025 Tobacco Screening Tobacco Screening [facility] Start: 07-24-2025 End: 07-24-2025 Patient encounter procedure 07/24/2025 10:15 AM EDT Office Visit [facility] [address] [phone] Lester Verdugo MD [address] [address] [facility] Start: 06-27-2025 Screening for malignant neoplasm of colon Colorectal Cancer Screening [facility] Comment on above: Postponed from 1976 (Patient Does Not Have Time) Start: 05-21-2025 End: 05-21-2025 Patient encounter procedure 05/21/2025 10:40 AM EDT Office Visit [facility] [address] [place] [phone] Nicole Guzman NP [address] [place], [place] MRYA HENDERSON Start: 05-01-2025 End: 05-01-2025 Patient encounter procedure 05/01/2025 9:40 AM EDT Office Visit [facility] [address] [place] [address] Halima Moncada, NNAMDI [address] [place] [phone] [facility] Start: 04-26-2025 End: 04-26-2025 Patient encounter procedure 04/26/2025 9:00 AM EDT Office Visit [facility] [address] [place] [address] Halima Moncada, NNAMDI [address] [place] [phone] [facility] Start: 03-01-2025 End: 03-01-2025 Patient encounter procedure 03/01/2025 9:40 AM EDT Office Visit [facility] [address] [place] [phone] Nicole Guzman NP [address] [place] [address] [facility]ENDERSON Start: 02-05-2025 Hemoglobin A1c measurement Diabetes: Hemoglobin A1C [facility] Start: 01-31-2025 Urine screening for protein Diabetes: Urine Protein Screening [facility] Start: 01-22-2025 End: 01-22-2026 CBC W Auto Differential panel - Blood CBC and differential Lab Routine Gastroesophageal reflux disease without esophagitis Expected: 01/22/2025 (Approximate), Expires: 01/22/2026 [facility] Comment on above: Expected: 01/22/2025 (Approximate), Expi res: 01/22/2026 Start: 01-22-2025 End: 01-22-2026 Comprehensive metabolic 2000 panel - Serum or Plasma Comprehensive metabolic panel Lab Routine Primary hypertension (CMS/HCC) Obesity (BMI 30-39.9) Type 2 diabetes mellitus without complication, without long-term current use of insulin Mixed hyperlipidemia (CMS/HCC) Expected: 01/22/2025 (Approximate), Expires: 01/22/2026 [facility] Comment on above: Expected: 01/22/2025 (Approximate), Expi res: 01/22/2026 Start: 01-22-2025 End: 01-22-2026 Lipid 1996 panel - Serum or Plasma Lipid panel Lab Routine Mixed hyperlipidemia (CMS/HCC) Expected: 01/22/2025 (Approximate), Expires: 01/22/2026 [facility] Comment on above: Expected: 01/22/2025 (Approximate), Expi res: 01/22/2026 Start: 01-22-2025 End: 01-22-2026 Microalbumin/Creatinine panel in random Urine Microalbumin / creatinine, urine ratio Lab Routine Type 2 diabetes mellitus without complication, without long-term current use of insulin Expected: 01/22/2025 (Approximate), Expires: 01/22/2026 [facility] Comment on above: Expected: 01/22/2025 (Approximate), Expi res: 01/22/2026 Start: 01-22-2025 End: 01-22-2026 Thyrotropin [Units/volume] in Serum or Plasma TSH Lab Routine Hypothyroidism, unspecified type (CMS/HCC) Expected: 01/22/2025 (Approximate), Expires: 01/22/2026 [facility] Work Phone: Comment on above: Expected: 01/22/2025 (Approximate), Expi res: 01/22/2026 Start: 01-22-2025 End: 01-22-2026 Thyroxine (T4) free [Mass/volume] in Serum or Plasma T4, free Lab Routine Hypothyroidism, unspecified type (CMS/HCC) Expected: 01/22/2025 (Approximate), Expires: 01/22/2026 [facility] Comment on above: Expected: 01/22/2025 (Approximate), Expi res: 01/22/2026 Start: 01-22-2025 End: 01-22-2026 Urinalysis complete panel - Urine Urinalysis with reflex microscopic (clean catch) Lab Routine Type 2 diabetes mellitus without complication, without long-term current use of insulin Expected: 01/22/2025 (Approximate), Expires: 01/22/2026 [facility] Comment on above: Expected: 01/22/2025 (Approximate), Expi res: 01/22/2026 Start: 01-22-2025 End: 01-22-2025 Patient encounter procedure [facility] Comment on above: Primary hypertension [...] Start: 11-06-2024 End: 11-06-2024 Patient encounter procedure [facility] Comment on above: Arrived Start: 10-28-2024 Glaucoma screening Diabetes: Retinopathy Screening [facility] Start: 09-14-2024 End: 09-14-2024 Professional / ancillary services management 09/14/2024 9:45 AM EST Ancillary Procedure [facility] [address] [place] [phone] [facility] Start: 09-13-2024 End: 07-25-2025 MG Breast - bilateral Screening Bilateral screening mammogram Imaging Routine Encounter for screening mammogram for malignant neoplasm of breast Expected: 09/13/2024 (Approximate), Expires: 07/25/2025 [facility] Work Phone: Comment on above: Expected: 09/13/2024 (Approximate), Expi res: 07/25/2025 Start: 09-13-2024 Screening for malignant neoplasm of breast Mammogram [facility] Start: 09-13-2024 Screening for malignant neoplasm of colon Colorectal Cancer Screening [facility] Comment on above: Postponed from 1976 (Patient Refus ed) Start: 09-12-2024 End: 09-12-2025 EEG, Including Recording Awake or Asleep EEG, Including Recording Awake or Asleep Neurology Routine Transient alteration of awareness Expected: 09/12/2024 (Approximate), Expires: 09/12/2025 [facility] Comment on above: Expected: 09/12/2024 (Approximate), Expi res: 09/12/2025 Start: 09-12-2024 End: 09-12-2025 MR Brain WO contrast MR brain wo contrast Imaging Routine Transient alteration of awareness Speech disturbance, unspecified type Expected: 09/12/2024 (Approximate), Expires: 09/12/2025 [facility] Work Phone: Comment on above: Expected: 09/12/2024 (Approximate), Expi res: 09/12/2025 Start: 09-12-2024 End: 09-12-2024 Patient encounter procedure [facility] Comment on above: Arrived Start: 08-03-2024 Hemoglobin A1c measurement Diabetes: Hemoglobin A1C [facility] Start: 07-25-2024 End: 07-25-2025 Hemoglobin A1c/Hemoglobin.total in Blood Hemoglobin A1c Lab Routine Type 2 diabetes mellitus without complication, without long-term current use of insulin (CMS/HCC) Expected: 07/25/2024 (Approximate), Expires: 07/25/2025 [facility] Work Phone: Comment on above: Expected: 07/25/2024 (Approximate), Expi res: 07/25/2025 Start: 07-25-2024 End: 07-25-2024 Patient encounter procedure [facility] Comment on above: Type 2 diabetes mellitus without complic ation, without long-term current use of insulin (CMS/HCC) (Primary Dx); Hypothyroidism, unspecified type (CMS/HCC); Primary hypertension (CMS/HCC) Start: 07-24-2024 End: 07-24-2024 Patient encounter procedure 07/24/2024 10:15 AM EDT Office Visit [facility] [address] [phone] Lester Verdugo MD [address] [address] [facility] Start: 06-20-2024 End: 06-20-2024 Patient encounter procedure [facility] Comment on above: Arrived Start: 06-19-2024 End: 06-19-2024 Patient encounter procedure 06/19/2024 9:20 AM EDT Office Visit [facility] [address] [place] [address] Halima Moncada, NNAMDI [address] [place] [address] [facility] Start: 05-28-2024 Influenza vaccination [facility] Start: 05-26-2024 Adult BMI Screening Adult BMI Screening [facility] Start: 05-26-2024 Tobacco Screening Tobacco Screening [facility] Start: 05-25-2024 End: 05-25-2025 HCG, quantitative, HCG, quantitative, Lab Routine Amenorrhea Expected: 05/25/2024 (Approximate), Expires: 05/25/2025 [facility] Comment on above: Expected: 05/25/2024 (Approximate), Expi res: 05/25/2025 Start: 05-25-2024 End: 05-25-2025 Prolactin level Prolactin level Lab Routine Amenorrhea Expected: 05/25/2024 (Approximate), Expires: 05/25/2025 [facility] Comment on above: Expected: 05/25/2024 (Approximate), Expi res: 05/25/2025 Start: 05-25-2024 End: 05-25-2025 THIN PREP TIS PAP AND HR HPV DNA THIN PREP TIS PAP AND HR HPV DNA Pathology and Cytology Routine Encounter for well woman exam with routine gynecological exam Expected: 05/25/2024 (Approximate), Expires: 05/25/2025 [facility] Comment on above: Expected: 05/25/2024 (Approximate), Expi res: 05/25/2025 Start: 05-25-2024 End: 05-25-2025 Thyrotropin [Units/volume] in Serum or Plasma TSH Lab Routine Hypothyroidism, unspecified type (CMS/HCC) Amenorrhea Expected: 05/25/2024 (Approximate), Expires: 05/25/2025 [facility] Comment on above: Expected: 05/25/2024 (Approximate), Expi res: 05/25/2025 Start: 05-25-2024 End: 05-25-2025 Thyroxine (T4) free [Mass/volume] in Serum or Plasma T4, free Lab Routine Hypothyroidism, unspecified type (CMS/HCC) Expected: 05/25/2024 (Approximate), Expires: 05/25/2025 [facility] Comment on above: Expected: 05/25/2024 (Approximate), Expi res: 05/25/2025 Start: 05-25-2024 End: 05-25-2025 US Pelvis transvaginal US pelvis transvaginal Imaging Routine Amenorrhea Expected: 05/25/2024 (Approximate), Expires: 05/25/2025 [facility] Comment on above: Expected: 05/25/2024 (Approximate), Expi res: 05/25/2025 Start: 05-25-2024 End: 05-25-2024 Patient encounter procedure 05/25/2024 10:30 AM EDT Procedure Visit [facility] [address] [place] [place] [address] Halima Moncada NP [address] [place] [address] Encounter for screening mammogram for malignant neoplasm of breast (Primary Dx) [facility] Comment on above: Encounter for screening mammogram for ma lignant neoplasm of breast (Primary Dx) Start: 11-26-2023 Screening for malignant neoplasm of cervix [facility] Start: 05-28-2023 Influenza vaccination Influenza Vaccine [facility] Start: 09-29-2022 Aerobic Culture Aerobic Culture [facility] Start: 09-29-2022 Anaerobic Culture Anaerobic Culture [facility] Start: 09-29-2022 Microscopic observation [Identifier] in Unspecified specimen by Gram stain Gram Stain [facility] Start: 02-06-2020 Screening for malignant neoplasm of cervix Pap Smear [facility] Start: 10-11-2018 Screening for malignant neoplasm of breast Mammogram [facility] Start: 2006 Screening for malignant neoplasm of cervix HPV/Cotest [facility] Start: 12-06-1995 DTaP,Tdap and Td Vaccines (1 - Tdap) DTaP,Tdap and Td Vaccines (1 - Tdap) [facility] Start: 1994 Adult BMI Follow Up Plan Adult BMI Follow Up Plan [facility] Start: 1988 Depression Screening Depression Screening [facility] Start: 1975 Screening for malignant neoplasm of colon [facility] Bacteria identified in Unspecified specimen by Aerobe culture [facility] Bacteria identified in Unspecified specimen by Anaerobe culture [facility] XR Chest 2 Views [facility] Immunizations Immunization Date Immunization Notes Care Provider Fa fiona 10-01-2020 influenza virus vacc ine, unspecified formulation Saeid Gooden [facility] Payers Date Payer Category Payer Self-pay [id number] 2022 Medicaid [id number] 2022 Medicaid [id number] 2.16.840.1.808477.19 2019 [facility] BCBS [id number]. [id number] 2017 [facility] ld Managed Care - Other ANTHEM [id number]. [id number] 2017 Unknown [id number]. 1.13.693.2. 7.3.292712.315 1976 Unknown [id number] 2.16.840.1.522626.3.579.2. 593 1976 Unknown [id number] 2.16.840.1.327296.3.579.2. 593 1976 Unknown [id number] 2.16.840.1.030069.3.579.2. 593 1976 Unknown [id number] 2.16.840.1.734590.3.579.2. 1286 1976 Unknown [id number] 2.16.840.1.552271.3.579.2. 1286 1976 Unknown [id number] 2.16.840.1.774694.3.579.2. 1286 1976 Unknown [id number] 2.16.840.1.741247.3.579.2. 196 1976 Unknown [id number] 2.16.840.1.592192.3.579.2. 196 1976 Unknown [id number] 2.16.840.1.418668.3.579.2. 196 1976 Unknown [id number] 2.16.840.1.420819.3.579.2. 1259 1976 Unknown [id number] 2.16.840.1.104470.3.579.2. 1259 1976 Unknown [id number] 2.16.840.1.985598.3.579.2. 9 1976 Unknown [id number] 2.16.840.1.106688.3.579.2. 9 1976 Unknown [id number] 2.16.840.1.679943.3.579.2. 1258 1976 Unknown [id number] 2.16.840.1.912012.3.579.2. 1258 1976 Unknown [id number] 2.16.840.1.319448.3.579.2. 1258 1976 Unknown [id number] 2.16.840.1.635950.3.579.2. 1258 1976 Unknown [id number] 2.16.840.1.179214.3.579.2. 9 1959 Unknown [id number] 2.16.840.1.339325.19 1959 Unknown [id number] [place] [address] [id number] 2.16.840.1.807340.19 Unknown [id number] 2.16.840.1.197864.19 Unknown [id number] 2.16.840.1.639127.3.579.2. 531 Social History Date Type Detail Facility Unknown if ever smoked [facility] Other Start: 09-12-2023 End: 01-22-2025 Sex Assigned At [facility] Start: 1975 Sex Assigned At Female [facility] Start: 10-26-2023 End: 12-31-2024 Tobacco smoking status VAIS Never smoked tobacco [facility] Start: 08-23-2017 End: 10-26-2023 Tobacco use and exposure Smokeless tobacco non-user [facility] Start: 06-20-2024 End: 02-15-2025 Alcoholic beverage intake Lifetime non-drinker (finding) [facility] Start: 09-12-2023 End: 01-22-2025 History of Social function [facility] Within the last year , have you been afraid of your partner or ex-partner? No [facility] Do you belong to any clubs or organizations such as sabianism groups, unions, fraternal or athletic groups, or school groups? Yes [facility] Are you now , , , , never or living with a partner? [facility] How often to you hav e a drink containing alcohol? Never [facility] How many standard dr inks containing alcohol do you have on a typical day? Patient does not drink [facility] Do you feel stress - tense, restless, nervous, or anxious, or unable to sleep at night because your mind is troubled all the time - these days [OSQ] To some extent [facility] Start: 10-26-2023 Alcohol Comment soda: 2 cups daily [facility] Start: 1975 Sex assigned at Not on file [facility] Start: 05-26-2023 End: 07-24-2024 Alcohol intake Current non-drinker of alcohol (finding) [facility] Start: 04-30-2015 End: 01-01-2025 Sex Female (finding) [facility] How often to you hav e a drink containing alcohol? Monthly or less [facility] How hard is it for y ou to pay for the very basics like food, housing, medical care, and heating Not very hard [facility] (I/We) worried wheth er (my/our) food would run out before (I/we) got money to buy more. Never true [facility] Medical Equipment Procedure Code Equipment Code Equipment Origin al Text Equipment Identifier Dates Start: 06-04-2020 Functional Status Date Assessment Result Facility 01-22-2025 Total score [AUDIT-C] 1 01/23/20 8:46 AM EDT Mychart, Generic [facility] 01-22-2025 How often to you hav e a drink containing alcohol? Monthly or less 01/22/2025 8:46 AM EDT Felicityhart, Generic Monthly or less [facility] 01-22-2025 Functional status Patient does n ot drink 01/22/2025 8:46 AM EDT Mychart, Generic Patient does not drink [facility] 01-22-2025 How often do you hav e 6 or more drinks on 1 occasion? Never 01/22/2025 8:46 AM EDT Haydee Mondragon Never [facility] Clinical Notes 08-31-2021 to 02-14-2025 DUSTIN LILLY - 01/22/2025 9:00 AM Nuiba Moncada NP - 01/22/2025 9:00 AM Nubia Moncada NP - 01/22/2025 6:30 AM Nubia Moncada NP - 01/22/2025 6:27 AM EDTPatient Instructions Note Date & Type Note Facility 02-14-2025 Note In person visit Chief complaint: pain by the shoulder - right side CROW: 49 y/o woman She said nothing happened Just woke up one day and could not move neck well side to side Also had rightshoulder pain It felt like a rubber band in her neck - like it was being stretched She went to see her massage therapist Then the chiropractor Then back and forth She was told that she has a lot of inflammation and a pinched nerve They did an MRI too - that was about a year ago The location of the pain is still the same She thinks it has just never gone away It is consistent - she has some times where the pain is more severe (intensity) - it was bad [place] No surgery on her neck She did have injections - about 1.5 years ago -those helped for about 9 months The pain came back this year in about Oct 2024 - this time it didn't help ROS: As above Past Medical History: Diagnosis Date GERD (gastroesophageal reflux disease) 2000 Hypertension 2022 Past Surgical History: Procedure Laterality Date CHOLECYSTECTOMY 2004 COLONOSCOPY 2008 STOMACH SURGERY 2018 UPPER GASTROINTESTINAL ENDOSCOPY 2008 Current Outpatient Medications on File Prior to Visit Medication Sig Dispense Refill amitriptyline (Elavil) 50 mg tablet TAKE 1 TABLET BY MOUTH at 8pm ascorbic acid (Vitamin C) 1,000 mg tablet Take 1,000 mg by mouth twice a day. atorvastatin (Lipitor) 10 mg tablet Take 10 mg by mouth. biotin 1 mg capsule Take by mouth. levothyroxine (Synthroid, Levoxyl) 50 mcg tablet Take 50 mcg by mouth. magnesium oxide-Mg AA chelate 300 mg capsule 300 mg twice a day. meloxicam (Mobic) 15 mg tablet Take 15 mg by mouth in the morning. with food omeprazole (PriLOSEC) [address] capsule Take 20 mg by mouth. ondansetron (Zofran) 4 mg tablet 1 every 8 hours for migraine associated nausea and vomiting Ozempic 1 mg/dose (4 mg/3 mL) pen injector Inject 1 mg under the skin. sertraline (Zoloft) 100 mg tablet take 2 tablets by mouth in the morning tiZANidine (Zanaflex) 4 mg tablet take 2 tablets by mouth once daily at bedtime No current facility-administered medications on file prior to visit. 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 Maybe syrinx) on the prior MRI - but again limited by motion Had CT c-spine There looks like there is HNP - that was from 12/2023 She needs new MRI c-spine Prior imaging from 01/2024 A/P: 49 y/o woman - has neck and arm pain - had CT 1 year ago - and as it turns out MRI -but limited some by motion artifact - there was ? Of cord signal change on the MRI (versus maybe syrinx) - she would benefit from repeat MRI - partly because it is 1 year old - but also due to the motion artifact to try to understand if there is a change in the spinal cord itself - on top of the herniated disc/spondylotic ridging on the right side with mass effect on the right c6 nerve. MRI c-spine Probably ACF or arthroplasty after if it shows c6 compression which is suspected Had prior injection - helped a year ago - not this time Jakob Madden MD [facility] 01-22-2025 History of Present illness Narrative Pinch nerve right trapezius shoulder [...] being taken. She does not see a clinical trial leader. SUBJECTIVE: MEDICATIONS: Current Outpatient Medications Medication Instructions [...] of skin sensation 05/07/2015 EDS (Jen-Danlos syndrome) (CMS/[facility]) Fatigue Fibromyalgia GERD (gastroesophageal reflux disease) HTN (hypertension) ([facility]) Hyperlipidemia (CMS/HCC) Hypersomnia 11/17/2014 Hypothyroidism (CMS/HCC) Migraines (CMS/HCC) 07/13/2008 Muscle spasm 11/19/2016 Nausea with vomiting 02/21/2015 Nonspecific abnormal results of function study 08/19/2009 brain and central nervous system; other JONATHAN (obstructive sleep apnea) 10/18/2019 Pain in limb 05/07/2015 PCOS (polycystic ovarian syndrome) Pre-diabetes Sleep disturbance 03/19/2014 Snoring 02/21/2015 Tension headache 07/13/2008 Type 2 diabetes mellitus ([facility]) Varicose veins of both legs [...] Problem List Items Addressed This Visit Depression ([facility]) Current med: sertraline Life stressors, [...] Relevant Orders CBC and differential HTN (hypertension) ([facility]) - Primary Stopped her diane at last appt d/t dizziness, her blood pressures have been great and no dizziness At this point we will leave her off DIANE for renal protection d/t dizziness Relevant Orders Comprehensive metabolic panel Hyperlipidemia ([facility]) On statin therapy Check labs yearly and prn dose changes Relevant Orders Lipid panel Comprehensive metabolic panel Hypothyroidism ([facility]) Current med: levothyroxine Check labs [...] Current med: omprazole Associated Problem(s): HTN (hypertension) (CMS/HCC) Stopped her diane at last appt d/t dizziness, her blood pressures have been great and no dizziness At this point we will leave her off DIANE for renal protection d/t dizziness documented in this encounter [facility] 01-22-2025 Instructions Halima Moncada NP - 01/22/2025 9:00 AM EDT Labs: Bronchitis: antibiotic, benzonate fluids, rest,if not better call office and I will repeat a chest xray if needed documented in this encounter [facility] 12-31-2024 Evaluation note Diagnosis Onset Date Resolution Bronchitis acute December 31 9:10am [facility] Work Phone: [phone]) 500-510602-10-2025 History of Present illness Narrative* Christine Zimmerman, [...] of the disruptive of her sleep is hyun's snoring. He does have a CPAP machine [...] sleep in a different room Continue with supply chain business analyst monitor for worsening symptoms continue to get 8 hours of sleep exercise This was discussed with the patient, all questions were answered and they agreed with the treatmentplan. The patient is to call with any worsening of the condition or new symptoms. Return to clinic: [address] Zimmerman for new episodes documented in this encounterParkland Health [id number] History of Present illness Narrative* Halima Moncada [...] 07/25/2024 9:12 AM EDTAssociated Problem(s): HTN (hypertension) (CMS/[facility]) Stopped her diane at last [...] being taken. She does not see a clinical trial leader.Eye exam is current. Thyroid Problem Presents for [...] MG capsule Take by mouth glucose blood ([employer]) test strip 1 each, As needed [...] adult 09/13/2023 Common migraine (CMS/HCC) 09/07/2008 Depression ([facility]) Disturbance of skin sensation 05/07/2015 EDS (Jen-Danlos syndrome) ([facility]) Fatigue Fibromyalgia GERD (gastroesophageal reflux disease) HTN (hypertension) ([facility]) Hyperlipidemia ([facility]) Hypersomnia 11/17/2014 Hypothyroidism ([facility]) Migraines ([facility]/HCC) 07/13/2008 Muscle spasm 11/19/2016 Nausea with vomiting 02/21/2015 Nonspecific abnormal results of function study 08/19/2009 brain and central nervous system; other JONATHAN (obstructive sleep apnea) 10/18/2019 Pain in limb 05/07/2015 PCOS (polycystic ovarian syndrome) Pre-diabetes Sleep disturbance 03/19/2014 Snoring 02/21/2015 Tension headache 07/13/2008 Type 2 diabetes mellitus ([facility]) Varicose veins of both legs [...] List Items Addressed This Visit HTN (hypertension) ([facility]/HCC) Stopped her diane at last appt d/t dizziness, her blood pressures have been great and no dizziness At this point we will leave her off DIANE for renal protection d/t dizziness Hypothyroidism ([facility]) No dose changes needed, doing well Relevant Medications levothyroxine (Synthroid, Levoxyl) 50 MCG tablet Migraines ([facility]) Inadvertantly cancelled her [facility] script Contact pharmacy DM, spoke to associate let them know to keep this active Associate Tr Shay with neurology Type 2 diabetes mellitus ([facility]) - Primary Continue current meds [...] A1c Obesity (BMI 30-39.9) documented in this encounterParkland Health [id number] History of Present illness Narrative* Lester Verdugo MD - 07/24/2024 10:15 AM EDT Images from the original note were not included. [address] [id number] Date of Service: 07/24/2024 Subjective: Tatiana Sepulveda [...] morning. SAMPLES PROVIDED TO PATIENT 04/12/24 LOT# [id number]; EXP: [id number].) 14 tablet 0 brexpiprazole (REXULTI) 1 mg tablet Take 1 tablet (1 mg total) by mouth in the morning. (Patient taking differently: Take 1 tablet (1 mg total) by mouth in the morning. SAMPLES PROVIDED TO PATIENT ON04/12/24 LOT#[id number] EXPIRES: 01/2025.) 14 tablet 0 budesonide-formoterol (SYMBICORT) [...] or corrected. Thank you for your understanding. [facility] Dr. Lester Verdugo MD [address] [facility], [address] [place] [address] Office: [phone] documented in this encounterOhio[facility] History of Present illness Narrative* Halima [...] chief complaint on file. HPI: Here for DATA PROCESSING SPECIALIST exam: had procedure surgical early February, + [...] adult 09/13/2023 Common migraine (CMS/HCC) 09/07/2008 Depression ([facility]) Disturbance of skin sensation 05/07/2015 EDS (Jen-Danlos syndrome) ([facility]) Fatigue Fibromyalgia GERD (gastroesophageal reflux disease) HTN (hypertension) ([facility]) Hyperlipidemia ([facility]) Hypersomnia 11/17/2014 Hypothyroidism ([facility]) Migraines (CMS/HCC) 07/13/2008 Muscle spasm 11/19/2016 Nausea with vomiting 02/21/2015 Nonspecific abnormal results of function study 08/19/2009 brain and central nervous system; other JONATHAN (obstructive sleep apnea) 10/18/2019 Pain in limb 05/07/2015 PCOS (polycystic ovarian syndrome) Pre-diabetes Sleep disturbance 03/19/2014 Snoring 02/21/2015 Tension headache 07/13/2008 Type 2 diabetes mellitus ([facility]) Varicose veins of both legs [...] nursing note reviewed. Exam conducted with a seal delivery vehicle team technician present. Constitutional: General: She is not in [...] Problem List Items Addressed This Visit Hypothyroidism ([facility]) Will recheck, to r.o abnormal [...] not better call office documented in this encounterParkland Health [id number] Miscellaneous Notes* Telephone Encounter - Saeid Gooden CMA - 12/24/2023 10:25 AM EDT Attempted to contact patient to reschedule appointment on 05/31/[address] Verdugo is out of the office. No Vm set up to leave a message. documented in this encounterOhioHealth [facility] Telephone encounter Note* Telephone Encounter - Saeid Gooden CMA - 12/24/2023 10:25 AM EDT Attempted to contact patient to reschedule appointment on 05/31/[address] Verdugo is out of the office. No Vm set up to leave a message. [facility]08-07-[facility] Evaluation note* Encounter Date Diagnosis Assessment [...] fever. Patient/Parent verbalized understanding of treatment plan. [facility] Other 02-21-2023 Evaluation note* Encounter Date Diagnosis [...] weeks for the cough to go away [facility] Other 01-02-2023 Evaluation note* Encounter Date Diagnosis [...] obtained for C&S. Will call with results. [facility] Other 12-19-2022 Evaluation note* Encounter Date Diagnosis Assessment Notes Treatment Notes Treatment Clinical Notes Aug, Gastroesophageal ref lux disease, unspecified whether esophagitis present (ICD-10 - K21.9) Aug, PCOS (polycystic ovarian syndrome) (ICD-10 - E28.2) [facility] Other 10-18-2022 Evaluation note* Encounter Date Diagnosis Assessment Notes Treatment Notes Treatment Clinical Notes Jun, Fibromyalgia (ICD-10 - M79.7) Continue current treatment regimen. Printed off script to use as needed [facility] Other 10-04-2022 Evaluation note* Encounter Date Diagnosis Assessment Notes Treatment Notes Treatment Clinical Notes Jun, Primary hypertension (ICD-10 - I10) Jun, SJ (generalized anxiety disorder) (ICD-10 - F41.1) [facility] Other 07-07-2022 Evaluation note* Encounter Date Diagnosis Assessment Notes Treatment Notes Treatment Clinical Notes Mar, Right hip pain (ICD-10 - M25.551) [facility] Other 05-10-2022 Evaluation note* Encounter Date Diagnosis Assessment Notes Treatment Notes Treatment Clinical Notes January, Gastroesophageal ref lux disease, unspecified whether esophagitis present (ICD-10 - K21.9) Continue to take medication as directed. January, PCOS (polycystic ovarian syndrome) (ICD-10 - E28.2) Take medication as directed with food [facility] Other 03-16-2022 Evaluation note* Encounter Date Diagnosis Assessment Notes Treatment Notes Treatment Clinical Notes Nov, Sacral back pain (ICD-10 - M53.3) [facility] Other 02-14-2022 Evaluation note* Encounter Date Diagnosis Assessment Notes Treatment Notes Treatment Clinical Notes Oct, Gastroesophageal ref lux disease, unspecified whether esophagitis present (ICD-10 - K21.9) [facility] Other 02-14-2022 Evaluation note* Encounter Date Diagnosis Assessment Notes Treatment Notes Treatment Clinical Notes Oct, Sacral back pain (ICD-10 - M53.3) [facility] Other 2021 Evaluation note* Encounter Date Diagnosis [...] instructions given in writting by [facility] document. [facility] [employer] Other Evaluation noteNo InformationNortPottstown Hospital [employer] Other Evaluation noteNo assessment information available [facility] Work Phone: Evaluation note* Diagnosis Type 2 diabetes mellitus without complication, without long-term current use of insulin ([facility]) documented in this encounter [facility] Healthcare[facility]* Diagnosis Type 2 diabetes mellitus without complication, without long-term current use of insulin (CMS/HCC)- Primary Primary hypertension (CMS/HCC) Unspecified essential hypertension Hypothyroidism, unspecified type (CMS/[facility]) Class 1 obesity without serious [...] insulin (CMS/HCC)- Primary documented in this encounter [facility] note* Diagnosis Type 2 [...] complication, without long-term current use of insulin (CMS/[facility])- Primary Hypothyroidism, unspecified type (CMS/HCC) Primary hypertension (CMS/HCC) Unspecified essential hypertension Migraine without aura and without status migrainosus, not intractable (CMS/[facility]) Obesity (BMI 30-39.9) documented in this encounter [facility] Healthcare[facility]* Diagnosis Type 2 diabetes mellitus without complication, without long-term current use of insulin (CMS/HCC)- Primary Primary hypertension (CMS/HCC) Unspecified essential hypertension Hypothyroidism, unspecified type ([facility]) Class 1 obesity without serious comorbidity with body mass index (BMI) of 33.0 to 33.9 in adult, unspecified obesity type Gastroesophageal reflux disease without esophagitis Esophageal reflux Varicose veins of both legs with edema EDS (Jen-Danlos syndrome) ([facility]) Jen-Danlos syndrome Type 2 diabetes mellitus without complication, without long-term current use of insulin ([facility]/HCC)- Primary BMI 33.0-33.9,adult Varicose veins of both [...] complication, without long-term current use of insulin ([facility])- Primary Hypothyroidism, unspecified type ([facility]) Primary hypertension ([facility]) Unspecified essential hypertension Migraine without aura and without status migrainosus, not intractable ([facility]) Obesity (BMI 30-39.9) Gastroesophageal reflux disease without esophagitis Esophageal reflux documented in this encounter [facility] HealthcareEvaluation note* Diagnosis Encounter for well woman exam with routine gynecological exam- Primary Encounter for screening mammogram for malignant neoplasm of breast Hypothyroidism, unspecified type ([facility]) Amenorrhea Absence of menstruation Dizziness and giddiness documented in this encounter [facility]* Diagnosis Migraine without aura and without status migrainosus, not intractable ([facility])- Primary Insomnia, unspecified type RLS (restless legs syndrome) Restless legs syndrome (RLS) documented in this encounter [facility] HealthcareEvaluation note* Diagnosis Type 2 diabetes mellitus without complication, without long-term current use of insulin ([facility])- Primary Primary hypertension ([facility]) Unspecified essential hypertension Hypothyroidism, unspecified type ([facility]) Class 1 obesity without serious comorbidity with body mass index (BMI) of 33.0 to 33.9 in adult, unspecified obesity type Gastroesophageal reflux disease without esophagitis Esophageal reflux Varicose veins of both legs with edema EDS (Jen-Danlos syndrome) ([facility]) Jen-Danlos syndrome Type 2 diabetes mellitus without complication, without long-term current use of insulin ([facility])- Primary BMI 33.0-33.9,adult Varicose veins [...] complication, without long-term current use of insulin ([facility]) Primary hypertension ([facility]) Unspecified essential hypertension Gastroesophageal reflux [...] radiculitis nos documented in this encounter [facility]* [...] complication, without long-term current use of insulin (CMS/[facility])- Primary Hypothyroidism, unspecified type (CMS/HCC) [...] legs syndrome (RLS) documented in this encounter [facility] HealthcareEvaluation note* Diagnosis Fibromyalgia Unspecified myalgia and myositis documented in this encounter [facility]* Diagnosis Fibromyalgia Unspecified myalgia and myositis documented in this encounter [facility] SystemEvaluation note* Diagnosis Type 2 diabetes mellitus without complication, without long-term current use of insulin ([facility])- Primary Primary hypertension (CMS/[facility]) Unspecified essential hypertension Hypothyroidism, unspecified type (CMS/[facility]) Class 1 obesity without serious comorbidity with body mass index (BMI) of 33.0 to 33.9 in adult, unspecified obesity type Gastroesophageal reflux disease without esophagitis Esophageal reflux Varicose veins of both legs with edema EDS (Jen-Danlos syndrome) ([facility]) Jen-Danlos syndrome Type 2 diabetes mellitus without complication, without long-term current use of insulin ([facility])- Primary BMI 33.0-33.9,adult Varicose veins [...] complication, without long-term current use of insulin (CMS/[facility]) Primary hypertension (CMS/[facility]) Unspecified essential hypertension Gastroesophageal reflux disease without esophagitis Esophageal reflux Hypothyroidism, unspecified type ([facility]/HCC) Obesity (BMI 30-39.9) Encounter for well woman exam with routine gynecological exam- Primary Encounter for screening mammogram for malignant neoplasm of breast Hypothyroidism, unspecified type ([facility]) Amenorrhea Absence of menstruation Dizziness and giddiness Type 2 diabetes mellitus without complication, without long-term current use of insulin ([facility])- Primary Hypothyroidism, unspecified type ([facility]) Primary hypertension ([facility]) Unspecified essential hypertension Migraine without aura and without status migrainosus, not intractable ([facility]) Obesity (BMI 30-39.9) Gastroesophageal reflux disease without esophagitis Esophageal reflux documented in this encounter [facility] HealthcareEvaluation note* Diagnosis Type 2 diabetes mellitus without complication, without long-term current use of insulin- Primary Primary hypertension ([facility]) Unspecified essential hypertension Hypothyroidism, unspecified type ([facility]) Class 1 obesity without serious comorbidity with body mass index (BMI) of 33.0 to 33.9 in adult, unspecified obesity type Gastroesophageal reflux disease without esophagitis Esophageal reflux Varicose veins of both legs with edema EDS (Jen-Danlos syndrome) ([facility]) Jen-Danlos syndrome Type 2 diabetes [...] long-term current use of insulin Primary hypertension ([facility]) Unspecified essential hypertension Gastroesophageal reflux disease without esophagitis Esophageal reflux Hypothyroidism, unspecified type ([facility]) Obesity (BMI 30-39.9) Encounter for well woman exam with routine gynecological exam- Primary Encounter for screening mammogram for malignant neoplasm of breast Hypothyroidism, unspecified type ([facility]) Amenorrhea Absence of menstruation Dizziness and giddiness Type 2 diabetes mellitus without complication, without long-term current use of insulin- Primary Hypothyroidism, unspecified type ([facility]/HCC) Primary hypertension ([facility]/HCC) Unspecified essential hypertension Migraine without aura and without status migrainosus, not intractable ([facility]) Obesity (BMI 30-39.9) Type 2 diabetes mellitus without complication, without long-term current use of insulin- Primary Primary hypertension (CMS/HCC) Unspecified essential hypertension Gastroesophageal reflux disease without esophagitis Esophageal reflux Fibromyalgia Unspecified myalgia and myositis Hypothyroidism, unspecified type ([facility]) Obesity (BMI 30-39.9) Class 1 obesity due to excess calories with serious comorbidity in adult, unspecified BMI Mild episode of recurrent major depressive disorder (HCC) ([facility]) Mixed hyperlipidemia ([facility]) Mixed hyperlipidemia Cervical radiculopathy Brachial neuritis or radiculitis nos Bronchitis with asthma, subacute ([facility]) documented in this encounter [facility] HealthcareEvaluation note* Diagnosis Type 2 diabetes mellitus without complication, without long-term current use of insulin ([facility])- Primary Primary hypertension Unspecified essential hypertension Hypothyroidism, unspecified type Class 1 obesity without serious comorbidity with body mass index (BMI) of 33.0 to 33.9 in adult, unspecified obesity type Gastroesophageal reflux disease without esophagitis Esophageal reflux Varicose veins of both legs with edema EDS (Jen-Danlos syndrome) ([facility]) Jen-Danlos syndrome Type 2 diabetes mellitus without complication, without long-term current use of insulin (HCC)- Primary BMI 33.0-33.9,adult Varicose veins of both [...] complication, without long-term current use of insulin (HCC) Primary hypertension Unspecified essential hypertension Gastroesophageal reflux disease without esophagitis Esophageal reflux Hypothyroidism, unspecified type Obesity (BMI 30-39.9) Encounter for well woman exam with routine gynecological exam- Primary Encounter for screening mammogram for malignant neoplasm of breast Hypothyroidism, unspecified type Amenorrhea Absence of menstruation Dizziness and giddiness Type 2 diabetes mellitus without complication, without long-term current use of insulin (HCC)- Primary Hypothyroidism, unspecified type Primary hypertension Unspecified essential hypertension Migraine without aura and without status migrainosus, not intractable Obesity (BMI 30-39.9) Type 2 diabetes mellitus without complication, without long-term current use of insulin (HCC)- Primary Primary hypertension Unspecified essential hypertension Gastroesophageal reflux disease without esophagitis Esophageal reflux Fibromyalgia Unspecified myalgia and myositis Hypothyroidism, unspecified type Obesity (BMI 30-39.9) Class 1 obesity due to excess calories with serious comorbidity in adult, unspecified BMI Mild episode of recurrent major depressive disorder Mixed hyperlipidemia Mixed hyperlipidemia Cervical radiculopathy Brachial neuritis or radiculitis nos Bronchitis with asthma, subacute (HCC) Other fatigue- Primary Class 1 obesity due to excess calories with serious comorbidity in adult, unspecified BMI Hypothyroidism, unspecified type Type 2 diabetes mellitus without complication, without long-term current use of insulin (HCC) Mild episode of recurrent major depressive disorder JONATHAN (obstructive sleep apnea) Obstructive sleep apnea (adult) (pediatric) Type 2 diabetes mellitus without complication, without long-term current use of insulin (HCC) documented [facility] this encounter [facility] Narrative - Reported* Type Description Date Medical History asthma Medical History pcos Medical History Fibromyalgia Medical History Hypothyroidism - euthyroid Medical History chronic fatigue Surgical History gall bladder Surgical History vein removed in bilaterally Surgical History gastric sleeve Hospitalization History see above Hospitalization History CHILD X'S 5 iogyn Other InstructionsNot on filedocumented in this encounter [facility]Not on filedocumented in this encounter [facility] SystemInstructionsNot on filedocumented in this encounter [facility] NarrativeDermatology Referral Update iogyn Other Chief Complaint and Reason for Visit Chief Complaint Ragged cuticle Chief Complaint Admit Date Cough, congestion, shortness of breath A pril 2024 9:10am Reason for Visit Admit Date Bronchitis December 31, 2024 9:10 am Advance Directives Advance Directive Response Recorded Date/ [...] No July 1:06pm Summary Purpose Family History Relationship Condition Age at Onset Recorded Date/T raman father History of stroke Unknown Heart disease Unknown grandparent Heart disease Unknown History of stroke Unknown Reason for Referral Specialty Diagnoses / Procedures Referred By Contac t Referred To Contact Diagnoses Type 2 diabetes mellitus without complication, without long-term current use of insulin ([facility]) Halima Moncada NP [address] [place] [address] Referral ID Status Reason Start Date Expiration Date V isits Requested Visits Authorized [id number] Pending Review 1 1 Additional Source Comments [...] Provider Active CHRISTIANO Jha Attending Provider Active Partition Setter Relationship Specialty Start Date End Date Javier West MD [address] [place] [place] [address] PCP - General Family Medicine 01/11/24 Halima Moncada NP [address] [place] [address] Nurse Practitioner Family Medicine 06/02/23 Halima Moncada NP [address] [place] [address] Nurse Practitioner Family Medicine 01/11/24 Partition Setter Relationship Specialty Start Date End Date Javier West MD [address] [place] [address] PCP - General Family Medicine 01/11/24 Halima Moncada NP [address] [place] [address] Nurse Practitioner Family Medicine 06/02/23 Halima Moncada NP [address] [place] [address] Nurse Practitioner Family Medicine 01/11/24 Partition Setter Relationship Specialty Start Date End Date Javier West MD [address] [place] [address] PCP - General Family Medicine 01/11/24 Halima Moncada NP [address] [place] [address] Nurse Practitioner Family Medicine 06/02/23 Halima Moncada NP [address] [place] [address] Nurse Practitioner Family Medicine 01/11/24 Partition Setter Relationship Specialty Start Date End Date Javier West MD [address] [place] [address] PCP - General Family Medicine 01/11/24 Halima Moncada NP [address] [place] [address] PCP - [facility] 06/27/24 Halima Moncada NP [address] [place] [address] Nurse Practitioner Family Medicine 06/02/23 Halima Moncada NP [address] [place] [address] Nurse Practitioner Family Medicine 01/11/24 Partition Setter Relationship Specialty Start Date End Date Javier West MD [address] [place] [address] PCP - General Family Medicine 01/11/24 Halima Moncada NP [address] [place] [address] PCP - [facility] 06/27/24 Halima Moncada NP [address] [place] [address] Nurse Practitioner Family Medicine 06/02/23 Halima Moncada NP [address] [place] [address] Nurse Practitioner Family Medicine 01/11/24 Partition Setter Relationship Specialty Start Date End Date Javier West MD [address] [place] [address] PCP - General Family Medicine 01/11/24 Halima Moncada NP [address] [place] [address] Nurse Practitioner Family Medicine 06/02/23 Halima Moncada NP [address] [place] [address] Nurse Practitioner Family Medicine 01/11/24 Christine Zimmerman DO [address] [place] [address] Referring Physician Neurology 09/12/24 Partition Setter Relationship Specialty Start Date End Date Javier West MD [address] [place] [address] PCP - General Family Medicine 01/11/24 Halima Moncada NP [address] [place] [address] Nurse Practitioner Family Medicine 06/02/23 Halima Moncada NP [address] [place] [address] Nurse Practitioner Family Medicine 01/11/24 Partition Setter Relationship Specialty Start Date End Date Javier West MD [address] [place] [address] PCP - General Family Medicine 01/11/24 Halima Moncada NP [address] [place] [address] Nurse Practitioner Family Medicine 06/02/23 Halima Moncada NP [address] [place] [address] Nurse Practitioner Family Medicine 01/11/24 Partition Setter Relationship Specialty Start Date End Date Javier West MD [address] [place] [address] PCP - General Family Medicine 01/11/24 Halima Moncada NP [address] [place] [address] Nurse Practitioner Family Medicine 06/02/23 Halima Moncada NP [address] [place] [address] Nurse Practitioner Family Medicine 01/11/24 Partition Setter Relationship Specialty Start Date End Date Javier West MD [address] [place] [address] PCP - General Family Medicine 01/11/24 Halima Moncada NP [address] [place] [address] Nurse Practitioner Family Medicine 06/02/23 Halima Moncada NP [address] [place] [address] Nurse Practitioner Family Medicine 01/11/24 Partition Setter Relationship Specialty Start Date End Date Javier West MD [address] [place] [address] PCP - General Family Medicine 01/11/24 Halima Moncada NP [address] [place] [address] Nurse Practitioner Family Medicine 06/02/23 Halima Moncada NP [address] [place] [address] Nurse Practitioner Family Medicine 01/11/24 Partition Setter Relationship Specialty Start Date End Date Javier West MD [address] [place] [address] PCP - General Family Medicine 01/11/24 Halima Moncada NP [address] [place] [address] Nurse Practitioner Family Medicine 06/02/23 Halima Moncada NP [address] [place] [address] Nurse Practitioner Family Medicine 01/11/24 Partition Setter Relationship Specialty Start Date End Date Javier West MD [address] [place] [address] PCP - General Family Medicine 01/11/24 Halima Moncada NP [address] [place] [address] Nurse Practitioner Family Medicine 06/02/23 Halima Moncada NP [address] [place] [address] Nurse Practitioner Family Medicine 01/11/24 Christine Zimmerman DO [address] [place] [address] Referring Physician Neurology 09/12/24 Partition Setter Relationship Specialty Start Date End Date Javier West MD [address] [place] [address] PCP - General Family Medicine 01/11/24 Halima Moncada NP [address] [place] [address] Nurse Practitioner Family Medicine 06/02/23 Halima Moncada NP [address] [place] [address] Nurse Practitioner Family Medicine 01/11/24 Christine Zimmerman DO [address] [place], [place] [address] Referring Physician Neurology 09/12/24 Partition Setter Relationship Specialty Start Date End Date Javier West MD [address] [place] [address] PCP - General Family Medicine 01/11/24 Halima Moncada NP [address] [place] [address] PCP - [facility] [employer] 09/27/24 Halima Moncada NP [address] [place] [address] Nurse Practitioner Family Medicine 06/02/23 Halima Moncada NP [address] [place] [address] Nurse Practitioner Family Medicine 01/11/24 Christine Zimmerman DO [address] [place] [address] Referring Physician Neurology 09/12/24 Partition Setter Relationship Specialty Start Date End Date Javier West MD [address] [place] [address] PCP - General Family Medicine 01/11/24 Halima Moncada NP [address] [place] [address] PCP - [facility] [employer] 09/27/24 Halima Moncada NP [address] [place] [address] Nurse Practitioner Family Medicine 06/02/23 Halima Moncada NP [address] [place] [address] Nurse Practitioner Family Medicine 01/11/24 Christine Zimmerman DO [address] [place] [address] Referring Physician Neurology 09/12/24 Partition Setter Relationship Specialty Start Date End Date ShaneMona sy [facility] [address] [place] [address] PCP - General Family Medicine 01/08/21 Partition Setter Relationship Specialty Start Date End Date Mona Morin [facility] [address] [place] [address] PCP - General Family Medicine 01/08/21 Partition Setter Relationship Specialty Start Date End Date Mona Morin [facility] [address] [place] [address] PCP - General Family Medicine 01/08/21 Partition Setter Relationship Specialty Start Date End Date Javier West MD [address] [place] [address] PCP - General Family Medicine 01/11/24 Halima Moncada NP [address] [place] [address] PCP - [facility] 09/27/24 Halima Moncada NP [address] [place] [address] Nurse Practitioner Family Medicine 06/02/23 Halima Moncada NP [address] [place] [address] Nurse Practitioner Family Medicine 01/11/24 Christine Zimmerman DO [address] [place] [address] Referring Physician Neurology 09/12/24 Partition Setter Relationship Specialty Start Date End Date Javier West MD [address] [place] [address] PCP - General Family Medicine 01/11/24 Halima Moncada NP [address] [place] [address] PCP - [facility] 09/27/24 Halima Moncada NP [address] [place] [address] Nurse Practitioner Family Medicine 06/02/23 Halima Monacda NP [address] [place] [address] Nurse Practitioner Family Medicine 01/11/24 Christine Zimmerman DO [address] [place] [address] Referring Physician Neurology 09/12/24 Partition Setter Relationship Specialty Start Date End Date Javier West MD [address] [place] [address] PCP - General Family Medicine 01/11/24 Halima Moncada NP [address] [place] [address] PCP - [facility] [employer] 09/27/24 Halima Moncada NP [address] [place] [address] Nurse Practitioner Family Medicine 06/02/23 Halima Moncada NP [address] [place] [address] Nurse Practitioner Family Medicine 01/11/24 Christine Zimmerman DO [address] [place] [address] Referring Physician Neurology 09/12/24 Partition Setter Relationship Specialty Start Date End Date Javier West MD [address] [place] [address] PCP - General Family Medicine 01/11/24 Halima Moncada NP [address] [place] [address] PCP - [facility] 09/27/24 Halima Moncada NP [address] [place] [address] Nurse Practitioner Family Medicine 06/02/23 Halima Moncada NP [address] [place] [address] Nurse Practitioner Family Medicine 01/11/24 Christine Zimmerman DO [address] [place] [address] Referring Physician Neurology 09/12/24 Partition Setter Relationship Specialty Start Date End Date Javier West MD [address] [place] [address] PCP - General Family Medicine 01/11/24 Halima Moncada NP [address] [place] [address] [facility] Halima Moncada NP [address] [place] [address] Nurse Practitioner Family Medicine 06/02/23 Halima Moncada NP [address] [place] [address] Nurse Practitioner Family Medicine 01/11/24 Christine Zimmerman DO [address] [place] [address] Referring Physician Neurology 09/12/24 Goals (unrecognized section and content) Goals may be documented in a n alternate section INFORMATION SOURCE (unrecogn ized section and content) DATE CREATED AUTHOR 01/29/2023 [facility] DATE CREATED AUTHOR AUTHOR'S ORGANIZ ATION 07/24/2024 [facility] DATE CREATED AUTHOR AUTHOR'S ORGANIZ ATION 11/09/2024 [facility] DATE CREATED AUTHOR AUTHOR'S ORGANIZ ATION 12/11/2024 [facility] DATE CREATED AUTHOR AUTHOR'S ORGANIZ ATION 01/06/2025 [facility] DATE CREATED AUTHOR AUTHOR'S ORGANIZ ATION 02/22/2025 [facility] DATE CREATED AUTHOR AUTHOR'S ORGANIZ ATION 03/08/2025 [facility] FOR RECORDS PERTAINING TO PATIENTS WHO ARE [...] BE BASED ON THE PRIMARY CLINICAL RECORDS. [employer] [facility]. provides no warranty or guarantee of the accuracy or completeness of information in this document.
[2025-04-15 16:17] LABS: Hematocrit 39.9 % (36.0-48.0); Hemoglobin 13.5 g/dL (12.0-16.0); Immature Granulocytes Abs Auto 0.02 10^3/uL (0.00-0.03); Immature Granulocytes Pct Auto 0.3 % (0.0-0.5); Lymphocytes Absolute Auto 2.0 10^3/uL (1.2-3.8); Mean Corpuscular HGB Conc 33.8 g/dL (29.9-35.2); Mean Corpuscular Hemoglobin 29.9 pg (26.7-34.0); Mean Corpuscular Volume 88.3 fL (81.0-99.0); Platelet Count 289 10^3/uL (150-450); Red Blood Count 4.52 10^6/uL (4.20-5.40); White Blood Count 6.4 10^3/uL (4.0-11.0)
[2025-04-15 16:25] LABS: INR 1.00; Prothrombin Time 10.6 sec (9.0-11.6)
[2025-04-15 16:26] LABS: Alanine Aminotransferase 43 U/L (14-59); Albumin Globulin Ratio 1.0; Albumin Level 3.8 g/dL (3.4-5.0); Alkaline Phosphatase 78 U/L (46-116); Anion Gap 15.5; Aspartate Amino Transferase 24 U/L (15-37); Blood Urea Nitrogen 17.0 mg/dL (7.0-18.0); Calcium 9.2 mg/dL (8.5-10.1); Carbon Dioxide 25.8 mmol/L (21.0-32.0); Chloride 104 mmol/L (98-107); Estimated GFR (African America >60 (>=60 mL/min/1.73m^2); Estimated GFR (Non-African Ame >60 (>=60 mL/min/1.73m^2); Globulin 3.8 g/dL; Glucose 146 mg/dL (74-106); Potassium 3.3 mmol/L (3.5-5.1); Sodium 142 mmol/L (136-145); Total Protein 7.6 g/dL (6.4-8.2)
--- NOTE | 2025-04-15 16:46 | ED.GENADUL1 ---
HPI HPI - General Adult General Chief complaint: Extremity Problem, Nontraumatic Stated complaint: LOWER EXTREMITY PAIN Time Seen by Provider: 04/15/25 15:51 Mode of arrival: walk-in History of Present Illness HPI narrative: Patient is coming to the ER with a right leg swelling that she noted this morning is mostly toward the distal end and associated with mild redness medially The patient mentioned that all started this morning she have no history of any recent immobilization or any long trips but the patient mentioned that she have a family history of blood clot and she is worried about it Related Data Home Medications �Medication �Instructions �Recorded �Confirmed atorvastatin 10 mg tablet 10 mg PO QAM 01/11/24 12/04/24 cetirizine 10 mg tablet 10 mg PO DAILY 01/11/24 12/04/24 levothyroxine 50 mcg tablet 50 mcg PO QAM 01/11/24 12/04/24 lisinopril 2.5 mg tablet 2.5 mg PO DAILY 01/11/24 12/04/24 minocycline 100 mg capsule 100 mg PO QPM 01/11/24 12/04/24 omeprazole 20 mg capsule,delayed 20 mg PO DAILY 01/11/24 12/04/24 release ropinirole 0.25 mg tablet 0.25 mg PO QPM 01/11/24 12/04/24 semaglutide 1 mg/dose (4 mg/3 mL) 1 mg subcut QWEEK 01/11/24 12/04/24 subcutaneous pen injector (Ozempic) sertraline 100 mg tablet 200 mg PO QAM 01/11/24 12/04/24 tizanidine 4 mg tablet 8 mg PO DAILY 01/11/24 12/04/24 magnesium 200 mg tablet 800 mg PO DAILY 03/08/24 12/04/24 Previous Rx's �Medication �Instructions �Recorded amoxicillin 875 mg-potassium 1 tab PO Q12H #14 tabs 04/15/25 clavulanate 125 mg tablet Allergies Allergy/AdvReac Type Severity Reaction Status Date / Time No Known Drug Allergies Allergy Verified 12/04/24 11:11 Opioid HPI Opioid Management Most Recent Opioid Data: Last Pain Scale 7 12/04/24, 11:06 Review of Systems ROS Status of ROS 10 or more systems reviewed and unremarkable except as noted in history and below [facility] Medical History (Updated 04/15/25 @ 16:47 by Kayla Khan MD) Varicose veins of bilateral lower extremities with pain �I83.813 - Varicose veins of bilateral lower extremities with pain (ICD-10) Phlebitis and thrombophlebitis of superficial vessels of right lower extremity �I80.01 - Phlebitis and thrombophlebitis of superficial vessels of right lower extremity (ICD-10) Varicose vein of leg �I83.90 - Asymptomatic varicose veins of unspecified lower extremity (ICD-10) Diabetes �E11.9 - Type 2 diabetes mellitus without complications (ICD-10) PCOS (polycystic ovarian syndrome) �E28.2 - Polycystic ovarian syndrome (ICD-10) Migraine �G43.909 - Migraine, unspecified, not intractable, without status migrainosus (ICD-10) Hyperlipidemia �E78.5 - Hyperlipidemia, unspecified (ICD-10) Hypothyroid �E03.9 - Hypothyroidism, unspecified (ICD-10) HTN (hypertension) �I10 - Essential (primary) hypertension (ICD-10) History of gastroesophageal reflux (GERD) �Z87.19 - Personal history of other diseases of the digestive system (ICD-10) 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, unspecified (ICD-10) Depression �F32.A - Depression, unspecified (ICD-10) Chronic sinusitis �J32.9 - Chronic sinusitis, unspecified (ICD-10) Chronic fatigue syndrome with fibromyalgia �G93.32 - Myalgic encephalomyelitis/chronic fatigue syndrome (ICD-10) �M79.7 - Fibromyalgia (ICD-10) Surgical History (Updated 06/19/24 @ 11:39 by Garrett Arellano) S/P sclerotherapy of varicose veins �Z98.890 - Other specified postprocedural states (ICD-10) �Z86.79 - Personal history of other diseases of the circulatory system (ICD-10) Status post laser ablation of incompetent vein �Z98.890 - Other specified postprocedural states (ICD-10) History of vein stripping �Z98.890 - Other specified postprocedural states (ICD-10) H/O gastric sleeve �Z90.3 - Acquired absence of stomach [part of] (ICD-10) Hx of cholecystectomy �Z90.49 - Acquired absence of other specified parts of digestive tract (ICD-10) Social History Little interest or pleasure in doing things: not at all Feeling down, depressed, or hopeless: not at all Exam Narrative Exam Narrative: Nurses notes and vital signs reviewed and patient is not hypoxic. General: Well-appearing and in no apparent distress. Skin: Warm, dry, no pallor noted. No rash. Right lower extremity exam; the patient have a mild redness mostly on the medial aspect of the right leg just above the medial malleolus extending to the distal one third of the leg and there is no other finding there is no open wound the patient has recently shaved her leg No calf tenderness Neurological: A&O x4. No cranial nerve dysfunction observed. No truncal ataxia. Moves all extremities. Sensation intact. Psychiatric: Cooperative and interactive. Normal mood and affect. Constitutional Vital Signs, click to edit/add: Last Vital Signs Temp 98 F 04/15/25 15:45 Pulse 113 H 04/15/25 15:45 Resp 20 04/15/25 15:45 BP 154/82 H 04/15/25 15:45 Pulse Ox 99 04/15/25 15:45 O2 Del Method Room Air 04/15/25 15:45 Course Course Hospital Course: The patient presentation could be secondary to mild cellulitis but we did had some blood workup including a D-dimer and CBC that showed no acute pathology Patient was started on Augmentin Instructed about monitoring symptoms and the redness and also monitoring for fever The patient is to follow up with primary care physician in next 2-3 days or to return to the emergency department should any of the signs or symptoms worsen or new symptoms develop. The patient agrees with the following Diagnosis and Treatment plan and the patient will be discharged home. Vital Signs Vital signs: Vital Signs Temperature 98 F 04/15/25 15:45 Pulse Rate 113 H 04/15/25 15:45 Respiratory Rate 04/15/25 15:45 Blood Pressure 154/82 H 04/15/25 15:45 Pulse Oximetry 99 04/15/25 15:45 Oxygen Delivery Method Room Air 04/15/25 15:45 Temperature 98 F 04/15/25 15:45 Pulse Rate 113 H 04/15/25 15:45 Respiratory Rate 04/15/25 15:45 Blood Pressure 154/82 H 04/15/25 15:45 Pulse Oximetry 99 04/15/25 15:45 Oxygen Delivery Method Room Air 04/15/25 15:45 Medical Decision Making Lab Data Labs: Lab Results 04/15/25 Range/Units 16:06 WBC 6.4 (4.0-11.0) 10^3/uL RBC 4.52 (4.20-5.40) 10^6/uL Hgb 13.5 (12.0-16.0) g/dL Hct 39.9 (36.0-48.0) % MCV 88.3 (81.0-99.0) fL MCH 29.9 (26.7-34.0) pg MCHC 33.8 (29.9-35.2) g/dL RDW 11.9 (11.0-15.0) % Plt Count 289 (150-450) 10^3/uL MPV 9.2 L (9.5-13.5) fL Neut % (Auto) 58.4 (43.0-75.0) % Lymph % (Auto) 31.2 (20.5-60.0) % [place] % (Auto) 6.8 (1.7-12.0) % Eos % (Auto) 2.5 (0.9-7.0) % Baso % (Auto) 0.8 (0.2-2.0) % Neut # (Auto) 3.7 (1.4-6.5) 10^3/uL Lymph # (Auto) 2.0 (1.2-3.8) 10^3/uL [place] # (Auto) 0.4 (0.3-0.8) 10^3/uL Eos # (Auto) 0.2 (0.0-0.7) 10^3/uL Baso # (Auto) 0.1 (0.0-0.1) 10^3/uL Abs Immat Gran (auto) 0.02 (0.00-0.03) 10^3/uL Imm/Tot Granulo (auto) 0.3 (0.0-0.5) % PT 10.6 (9.0-11.6) sec INR 1.00 D-Dimer 0.24 (<=0.59) mg/L FEU Sodium 142 (136-145) mmol/L Potassium 3.3 L (3.5-5.1) mmol/L Chloride 104 (98-107) mmol/L Carbon Dioxide 25.8 (21.0-32.0) mmol/L Anion Gap 15.5 BUN 17.0 (7.0-18.0) mg/dL Creatinine 0.73 (0.55-1.02) mg/dL Est GFR ( Amer) >60 (>=60 mL/min/1.73m^2) Est GFR (Non-Af Amer) >60 (>=60 mL/min/1.73m^2) BUN/Creatinine Ratio 23.3 Glucose 146 H (74-106) mg/dL Calcium 9.2 (8.5-10.1) mg/dL Total Bilirubin 0.5 (0.2-1.0) mg/dL AST 24 (15-37) U/L ALT 43 (14-59) U/L Alkaline Phosphatase 78 (46-116) U/L Total Protein 7.6 (6.4-8.2) g/dL Albumin 3.8 (3.4-5.0) g/dL Globulin 3.8 g/dL Albumin/Globulin Ratio 1.0 Serum HCG, Qual Negative (NEGATIVE) Discharge Plan Discharge Chief Complaint: Extremity Problem, Nontraumatic Clinical Impression: Cellulitis Patient Disposition: Home, Self-Care Time of Disposition Decision: 16:47 Condition: Good Prescriptions / Home Meds: New amoxicillin-pot clavulanate 875-125 mg tablet 1 tab PO Q12H Qty: 14 0RF No Action magnesium 200 mg tablet 800 mg PO DAILY atorvastatin 10 mg tablet 10 mg PO QAM cetirizine 10 mg tablet 10 mg PO DAILY levothyroxine 50 mcg tablet 50 mcg PO QAM lisinopril 2.5 mg tablet 2.5 mg PO DAILY minocycline 100 mg capsule 100 mg PO QPM omeprazole 20 mg capsule,delayed release(DR/EC) 20 mg PO DAILY ropinirole 0.25 mg tablet 0.25 mg PO QPM Ozempic 1 mg/dose (4 mg/3 mL) pen injector 1 mg SUBCUT QWEEK sertraline 100 mg tablet 200 mg PO QAM tizanidine 4 mg tablet 8 mg PO DAILY Print Language: [place] Instructions: Cellulitis (ED) Referrals: Halima Moncada DIRECTOR OF PUBLIC WORKS [Primary Care Provider, Family Practice] - 1 week Discharge Date/Time: 04/15/25 17:00
[2025-04-15] MEDS: AMOXICILLIN/POT CLAV 875-125 MG TABLET 1 TAB PO (16:53)
== END 2025-04-15 17:00 | disposition home or self-care (01) ==
PROVIDERS: Emergency Provider Emergency Medicine; PCP Nurse Practitioner
DX: L03.115 Cellulitis of right lower limb (principal); Z98.84 Bariatric surgery status; Z90.49 Acquired absence of other specified parts of digestive tract
CPT/HCPCS: 36415; 80053; 84703; 85025; 85378; 85610; 99283

== ENCOUNTER 2025-09-21 07:00 | Outpatient (OUT) | payer BC, MEDICAID, SELFPAY ==
--- OUTSIDE RECORDS SUMMARY | 2024-10-02 06:00 | XMS_ITS ---
Author Organization [facility] Address [address] [place] [address] Care Team Providers Care Jalousies Installer Name Role Phone Dr. Walker Ramirez Primary Care Provider REASON FOR VISIT NEW PT EXAM Encounters Encounter Location Date Provider Diagnosis [facility] [address] [place] [address] 10/02/2024 Walker Ramirez Plan Of Treatment Next Appt Details Provider Name:Iris Ellison, 09/21/2025 01:00:00 PM, [address] [place], [address], Provider Name:Tonie Mcintosh, 02/20/2026 11:15:00 AM, [address] [place], [address], Progress Notes * MELISA SEPULVEDAHDOB:[birth year] (49 yo F)Acc No.[id number]:10/02/2024 Patient:?TUSHAR SEPULVEDARAH :?Walker Ramirez DDSDOB:1975???Age:48 Y???Sex: FemaleDate:10/02/2024Phone:[phone]:[address] [place] [address] [id number] Subjective: * Chief Complaints: * N EW PT EXAM * Electronic signature of Dr. Walker Ramirez , DMD, [id number] on 09/21/2025 at 07:03 AM ESTSign off status: Pending * Provider: Brenda Ramirez DDS Date: 0 10/02/2024 Generated for Printing/Faxing/eTransmitting on:?09/21/2025 07:03 AM EST
--- OUTSIDE RECORDS SUMMARY | 2025-03-29 05:00 | XMS_ITS ---
Author Organization [facility] Address [address] [place] [address] Care Team Providers Care Electrical Design Technologist Name Role Phone Dr. Walker Ramirez Primary Care Provider [phone] Violetta Waldrop [phone] REASON FOR VISIT PROPHY Encounters Encounter Location Date Provider Diagnosis [facility] [address] [place] [address] 03/29/2025 Violetta Henderson Plan Of Treatment Next Appt Details Provider Name:Iris Ellison, 09/21/2025 01:00:00 PM, [address] [place], [address], Provider Name:Tonie Mcintosh, 02/20/2026 11:15:00 AM, [address] [place], [address], Progress Notes * SEPULVEDATUSHARHDOB:[birth year] (49 yo F)Acc No.[id number]:03/29/2025 Patient:?TUSHAR SEPULVEDARAH :?Violetta HendersonDOB:1975???Age:49 Y???Sex: FemaleDate:03/29/2025Phone:[phone]:[address] [place] [address] [id number]:Dr. Walker Ramirez Subjective: * Chief Complaints: * P ROPHY * Electronic signature of Violetta Henderson on 09/21/2025 at 07:03 AM ESTSign off status: Pending * Provider: Mitzi Henderson Date: 0 03/29/2025 Generated for Printing/Faxing/eTransmitting on:?09/21/2025 07:03 AM EST
--- OUTSIDE RECORDS SUMMARY | 2025-07-26 09:30 | XMS_ITS ---
Author Organization [facility] Address [address] [place] [address] Care Team Providers Care Pathology Laboratory Technologist Name Role Phone Dr. Walker Ramirez Primary Care Provider Iris Ellison [phone] REASON FOR VISIT IMPRESSION WITH GINGER - APPROVED Encounters Encounter Location Date Provider Diagnosis [facility] [address] [place] [address] 07/26/2025 Iris Ellison Plan Of Treatment Next Appt Details Provider Name:Iris Ellison, 09/21/2025 01:00:00 PM, [address] [place], [address], Provider Name:Tonie Dayna, 02/20/2026 11:15:00 AM, [address] [place], [address], Progress Notes * MELISA SEPULVEDAANETAOB:[birth year] (49 yo F)Acc No.[id number]:07/26/2025 Dental Appointment Patient: JONNATHAN VILLARREAL :?Iris EllisonDOB:1975???Age:49 Y???Sex: FemaleDate:07/26/2025Phone:[phone]:[address] [place] [address] TC [id number]:Dr. Walker Ramirez Subjective: * Chief Complaints: * I MPRESSION WITH GINGER - APPROVED * Electronic signature of Iris Ellison , DMD on 09/21/2025 at 07:03 AM ESTSign off status: Pending * Provider: Brenda Ellison Date: Generated for Printing/Faxing/eTransmitting on:?09/21/2025 07:03 AM EST
--- NOTE | 2025-09-21 07:02 | US_ITS ---
[address] [address] Patient Name: JONNATHAN SEPULVEDA MRN: [id number] date: 1975 Sex: F Assigned Patient Location: US Current Patient Location: US Accession/Order Number: [id number] Exam Date: 09/21/2025 07:03 Report Date: 09/21/2025 09:00 At the request of: ELSI SUAREZ NP Procedure: US chest LIMITED ULTRASOUND - COMPARISON: None CLINICAL DATA: Palpable lump at the left mid back. Real-time ultrasound evaluation of the site of palpable concern was performed. There is a subtle hyperechoic nodular area within the subcutaneous fat measuring approximately 2.9 x 1.0 x 1.4 cm in size. The appearance suggests a lipoma. No other cystic or solid masses are seen in the area imaged. US/US chest IMPRESSION: LIPOMA AT THE SITE OF PALPABLE CONCERN. Impression dictated by: Cassy Graham M.D. 09/21/2025 9:00 AM Dictation Location: [facility] Electron[facility] authenticated by: [id number] Y Date: 09/21/2025 09:00
--- OUTSIDE RECORDS SUMMARY | 2025-09-21 07:03 | XMS_ITS | Clinical Summary ---
Author Organization [facility] Healthcare Address [address] [place] [address] Care Team Providers Care Patient Service Rep Name Role Phone Javier West MD Primary Care Provider [phone] Becky Pace DO Unavailable [phone] Halima Moncada BILINGUAL INTERPRETER Unavailable [phone] Allergies No known active allergies Medications MedicationSigDispense QuantityRefillsLast FilledStart DateEnd DateStatus glucose blood (OneTouch Verio) test strip 1 each by Other route if needed Use as instructedActive insulin syringe-needle U-100 31G X 5/16 0.3 mL misc Inject 1 each under the skin 1 (one) time per week Use as instructedActive amitriptyline (Elavil) 50 MG tablet Take 50 mg by mouth at bedtimeActive meloxicam (Mobic) 15 MG tablet Take 15 mg by mouth in the morning.Active biotin 1 MG capsule Take by mouthActive ondansetron (Zofran) 4 MG tablet Indications:Migraine without aura and without status migrainosus, not intractable1 every 8 hours for migraine associated nausea and vomiting 20 tablet 02/03/2024ctive sertraline (Zoloft) 100 MG tablet Take 200 mg by mouth DailyActive Rimegepant Sulfate (Nurtec) 75 MG tablet dispersible Indications:Migraine without aura and without status migrainosus, not intractableTake 75 mg by mouth Daily as needed (migraine VALERO) 16 tablet ctive Rimegepant Sulfate (Nurtec) 75 MG tablet dispersible Indications:MigraineTake one tab every other day, may take on off day for migraine abortive, not more than one in 24 hours or 18 a month. 18 tablet 4Active pregabalin (Lyrica) 75 MG capsule Take 75 mg by mouth in the morning and 75 mg before bedtime.5Active levothyroxine (Synthroid, Levoxyl) 50 MCG tablet Indications:Hypothyroidism, unspecified typeTake 1 tablet (50 mcg) by mouth in the morning. Take before meals. 30 tablet 5Active omeprazole (PriLOSEC) [address] capsule Indications:Gastroesophageal reflux disease without esophagitisTake 1 capsule (20 mg) by mouth in the morning. Take before meals. 30 capsule 5Active semaglutide (Ozempic, 1 MG/DOSE,) 4 MG/3ML solution pen-injector Indications:Type 2 diabetes mellitus without complication, without long-term current use of insulin (HCC)Inject 1 mg under the skin 1 (one) time per week for 28 days 3 mL 5Active Ascorbic Acid (vitamin C) 1000 MG tablet Take 1,000 mg by mouth in the morning and 1,000 mg in the evening.Active tiZANidine (Zanaflex) 4 MG tablet Indications:Cervical radiculopathyTAKE 2 TABLETS BY MOUTH ONCE DAILY AT BEDTIME 60 tablet 5055Active atorvastatin (Lipitor) 10 MG tablet Indications:Type 2 diabetes mellitus without complication, without long-term current use of insulin (HCC)Take 1 tablet (10 mg) by mouth at bedtime 30 tablet 5Active LORazepam (Ativan) 0.5 MG tablet Take 0.5 mg by mouth 2 (two) times a day as ynhagy846Active Active Problems ProblemNoted DateDiagnosed DatePanic rzxjkty9105/01/2025 Assessment & Plan (05/02/2025 10:53 AM EDT): Will reach out to Dr Sesay office, as her ativan is not helping to see if they can do something else for her Counseling referral Left voicemail for dr sesay's office regarding the request At 10:50am, 05/02/25 Other afbzvzz5602/15/2025 Assessment & Plan (02/15/2025 12:01 PM EDT): Reviewed labs, order sleep study Talk to psych about adding something Class 1 obesity due to excess calories with serious comorbidity in adult 01/22/2025 Assessment & Plan (05/01/2025 6:32 AM EDT): Discussed with patient their BMI (actual, verses recommended). We have also discussed lifestyle modifications: attempts to perform physical activity as chronic conditions allow, also to monitor dietary intake: increasing protein/fruits/veggies and lowering carb intake (unless contraindicated). Limit sodas, juices, and sugary drinks. Does take ozempic for DM Assessment & Plan (02/15/2025 6:38 AM EDT): Discussed with patient their BMI (actual, verses recommended). We have also discussed lifestyle modifications: attempts to perform physical activity as chronic conditions allow, also to monitor dietary intake: increasing protein/fruits/veggies and lowering carb intake (unless contraindicated). Limit sodas, juices, and sugary drinks. Does take ozempic for DM Assessment & Plan (01/22/2025 6:25 AM EDT): Discussed with patient their BMI (actual, verses recommended). We have also discussed lifestyle modifications: attempts to perform physical activity as chronic conditions allow, also to monitor dietary intake: increasing protein/fruits/veggies and lowering carb intake (unless contraindicated). Limit sodas, juices, and sugary drinks. Does take ozempic for DM Bronchitis with asthma, sveikqmr66/28/2025Encounter for screening mammogram for malignant neoplasm of dhsido8605/25/20246066Lwzkpiafok15/29/2024 Assessment & Plan (05/01/2025 12:50 PM EDT): Possible menopause Would like testing Send to [employer]UDITOR Assessment & Plan (05/25/2024 11:26 AM EDT): Recheck quant, prolactin, thyroid Check pelvic US Encounter for well woman exam with routine gynecological exam05/25/2024 Assessment & Plan (05/25/2024 11:27 AM EDT): Monthly BSE Yearly mammograms PAP as indicated Healthy diet and exercise Dizziness and ywqxewrcg43/29/2024 Assessment & Plan (05/25/2024 11:28 AM EDT): Hold lisinopril at this time If after a few weeks if not better call office Herpes zoster without ztdpvspzxbla45/13/2024 Assessment & Plan (02/23/2024 3:28 PM EDT): Clinically is doing better May use capsaicin cream OTC to see if this helps with the pain Fu prn Assessment & Plan (02/07/2024 12:49 PM EDT): Exam c/w shingles, likely steroids recently for her cervical issues OTC calamine lotion, cont nuria Since she still has new lesions coming will add anti viral Advised pt population to avoid Fu in 1-2 weeks for a recheck Primary /08/2024RLS (restless legs syndrome)4Cervical lttcnofsuvhhz98/16/2024 Assessment & Plan (01/22/2025 9:43 AM EDT): Current meds: meloxicam, lyrica, tizianidine With neurology and neurosurgeon Assessment & Plan (01/11/2024 6:37 PM EDT): Unclear if this is radicular in nature or related to extreme muscle spasm and inflammation We will start with steroid taper and muscle relaxers as well as pain meds OARRS reviewed Will attempt to see if can get into see pain mgmt as well Will call [facility] pain mgmt in the morning to see if can get a stat appt possible trigger point injection Varicose veins of both legs with edema09/13/2023 Assessment & Plan (10/26/2023 9:26 AM EST): Continue with vein and body at [facility] Assessment & Plan (09/13/2023 9:44 AM EST): Pt has had varicose vein surgery in the past, with what also sounds like phlebitis , she is faithful with wearing her compression stockings, but is having worsening in symptoms especially at HS Will refer to [facility] vein center No s/s DVT noted at todays appt Chronic fatigue plmkcurb46/15/3194Sjfozcdnas70/15/2023 Assessment & Plan (05/01/2025 12:51 PM EDT): Under the care of psych Would like to go to counseling as well Assessment & Plan (02/15/2025 11:34 AM EDT): I have encouraged her to reach out to her psych provider Possible consideration of adding something such as wellbutrin for addition to treatment plan Assessment & Plan (01/22/2025 9:44 AM EDT): Current med: sertraline Life stressors, and does not feel needs dose adjustment EDS (Jen-Danlos syndrome)09/10/20237854Qjxrfsxpenuv88/15/2023 Assessment & Plan (01/22/2025 9:43 AM EDT): Current meds: elavil, meloxicam, tizandidine (overlap w meds for cervcial) GERD (gastroesophageal reflux disease)09/10/2023 Assessment & Plan (01/22/2025 6:23 AM EDT): Recommendations: freq small meals, nothing to eat or drink at least 2 hours prior to bed, limit caffeine, alcohol, as well as spicy foods Meds to limit or avoid if possible: NSAIDS Elevate HOB if possible Current med: omprazole HTN (hypertension)09/10/2023 Assessment & Plan (01/22/2025 6:22 AM EDT): Stopped her juan carlos at last appt d/t dizziness, her blood pressures have been great and no dizziness At this point we will leave her off JUAN CARLOS for renal protection d/t dizziness Assessment & Plan (07/25/2024 9:16 AM EDT): Stopped her juan carlos at last appt d/t dizziness, her blood pressures have been great and no dizziness At this point we will leave her off JUAN CARLOS for renal protection d/t dizziness Qoezifdewpbxsh52/15/2023 Assessment & Plan (05/01/2025 6:32 AM EDT): On statin therapy Check labs yearly and prn dose changes Assessment & Plan (01/22/2025 6:27 AM EDT): On statin therapy Check labs yearly and prn dose changes Aqocikrdpyoadn27/15/2023 Assessment & Plan (05/01/2025 6:32 AM EDT): Current med: levothyroxine Check labs yearly, and prn dose changes or changes in sxs Recent thyroid labs do not seem to be the source of fatigue Assessment & Plan (02/15/2025 11:34 AM EDT): Current med: levothyroxine Check labs yearly, and prn dose changes or changes in sxs Thyroid labs do not appear to be the cause of her symptoms Assessment & Plan (01/22/2025 6:24 AM EDT): Current med: levothyroxine Check labs yearly, and prn dose changes or changes in sxs Assessment & Plan (07/25/2024 9:17 AM EDT): No dose changes needed, doing well Assessment & Plan (05/25/2024 11:26 AM EDT): Will recheck, to r.o abnormal and possible cause of her amenorrhea Lbwtbthmm07/15/2023 Assessment & Plan (07/25/2024 9:18 AM EDT): Inadvertantly cancelled her ampricete script Contact pharmacy DM, spoke to associate let them know to keep this active Associate Tr Shay with neurology PCOS (polycystic ovarian syndrome)09/10/2023Type 2 diabetes nqpajscx50/15/2023 Assessment & Plan (05/01/2025 6:31 AM EDT): Check blood sugars daily, notify if <70 [...] sugars. Current meds; statin, ozempic Cannot tolerate JUAN CARLOS/ARB d/t dizziness A1c: 5.6% 01/22/25 Assessment & Plan (02/15/2025 6:39 AM EDT): Check blood sugars daily, notify if <70 [...] sugars. Current meds; statin, ozempic Cannot tolerate JUAN CARLOS/ARB d/t dizziness A1c: 5.6% 01/22/25 Assessment & Plan (01/22/2025 9:28 AM EDT): Check blood sugars daily, notify if <70 [...] sugars. Current meds; statin, ozempic Cannot tolerate JUAN CARLOS/ARB d/t dizziness A1c: 5.6% 01/22/25 Assessment & Plan (07/25/2024 9:17 AM EDT): Continue current meds No JUAN CARLOS: dizziness [...] diet low in carbohydrates, and simple sugars. Assessment & Plan (10/26/2023 9:26 AM EST): Reviewed labs Fu in 3 months Assessment & Plan (09/13/2023 9:23 AM EST): Will check A1c test and urine as well Check blood sugars daily, notify if <70 [...] diet low in carbohydrates, and simple sugars. JONATHAN (obstructive sleep apnea)10/18/2019 Assessment & Plan (05/01/2025 6:30 AM EDT): Sleep study was ordered in 01/2025 Assessment & Plan (02/15/2025 11:36 AM EDT): Will order sleep study Apparently was dx in 2019 No current treatment Recheck sleep study Muscle spasm11/19/2016Carpal tunnel wwbpltku51/15/2015Pain in limb05/07/2015 Disturbance of skin dawddxyua26/11/2015Nausea with /28/2015Tension yhpvcvfb94/17/2008 Resolved Problems ProblemNoted DateDiagnosed DateResolved DateObesity (BMI 30-39.9)02/07/2024 01/22/2025Insomnia, xsegpalmuaj67/08/202410/Hypersomnia, unspecified MigraineStrain of right trapezius muscle Assessment & Plan (01/11/2024 6:38 PM EDT): Steroids, muscle relaxer as well as pain meds Pain mgmt BMI 33.0-33.9,adult/lass 1 obesity without serious comorbidity with body mass index (BMI) of 33.0 to 33.9 in adult09/13/2023 02/07/2024 Assessment & Plan (09/13/2023 9:23 AM EST): Recommend continued weight loss Ozempic helping as well Qwopyjnv34HypersomniaSleep disturbance Nonspecific abnormal results of function study08/19/2009 05/25/2024 Overview (02/02/2024): brain and central nervous system; other Common sjviuxvq72 Encounters DateTypeDepartmentCare HemtGrlgubvzgvw98/19/2025amboo flowsheet [facility] [address] [place] [address] Cheyenne Anaya LISW 08/15/20254545Wjybsm66/12/2025amboo flowsheet [facility] [address] [place] [address] Cheyenne Anaya LISW 08/08/20259228Rkvjmm99/05/2025 1:00 PM ESTSocial Work [facility] [address] [place] [address] Cheyenne Anaya LISW Attention deficit hyperactivity disorder (ADHD), combined type; Complex posttraumatic stress disorder; Marital problem involving divorce; Family disruption due to marital estrangement; History of adverse childhood wdboerllflk92/05/2025amboo flowsheet [facility] [address] [place] [address] Cheyenne Anaya LISW 08/01/20257389Gbnajl67/29/2025 10:00 AM EDTSocial Work [facility] [address] [place] [address] Cheyenne Anaya LISW Complex posttraumatic stress disorder; Attention deficit hyperactivity disorder (ADHD), combined type; History of adverse childhood experiences; Relationship zrqlwdvwenw20/29/2025 flowsheet [facility] [address] [place] [address] Cheyenne Anaya LISW 07/25/20250412Uatixm81/22/2025 10:00 AM EDTSocial Work [facility] [address] [place] [address] Cheyenne Anaya LISW Complex posttraumatic stress disorder; Attention deficit hyperactivity disorder (ADHD), combined type07/18/2025Travel 07/11/2025 11:00 AM EDTSocial Work [facility] [address] [place] [address] Cheyenne Anaya LISW Complex posttraumatic stress disorder; Attention deficit hyperactivity disorder (ADHD), combined type07/11/2025 flowsheet [facility] [address] [place] [address] Cheyenne Anaya LISW 07/11/20251399Xilsfh37/14/7010Jdfjmy10/08/2025 11:00 AM EDTSocial Work [facility] [address] [place] [address] Cheyenne Anaya LISW Attention deficit hyperactivity disorder (ADHD), combined type; Complex posttraumatic stress xbqytmrc23/08/2025 flowsheet [facility] [address] [place] [address] Cheyenne Anaya LISW 07/04/2025Travelfrom Last 3 Months Family History Medical HistoryRelationNameCommentsHeart diseaseFatherHypertensionFatherStroke FatherHypertensionMotherBreast cancerOtherMaternal sideMelanomaOtherMaternal sideBone cancerPaternal GrandfatherHeart diseasePaternal GrandfatherHypertension Paternal GrandfatherRelationNameStatusCommentsFatherAliveMotherAliveOther Maternal sidePaternal Grandfather Social History Tobacco UseTypesPacks/DayYears UsedDateSmoking Tobacco: NeverSmokeless Tobacco: Never Tobacco Cessation:Counseling Given: Not Answered Alcohol UseStandard Drinks/WeekCommentsNever0 (1 standard drink = 0.6 oz pure alcohol)soda: 2 cups mdpkcY4800 Health LiteracyAnswerDate RecordedHow often do you need to have someone help you when you read instructions, pamphlets, or other written material from your doctor or pharmacy?Never01/22/2025Humiliation, Afraid, Rape, and Kick questionnaireAnswerDate RecordedWithin the last year, have you been afraid of your partner or ex-partner?No01/22/2025Within the last year, have you been humiliated or emotionally abused in other ways by your partner or ex-partner?No01/22/2025Within the last year, have you been kicked, hit, slapped, or otherwise physically hurt by your partner or ex-partner?No 01/22/2025Within the last year, have you been raped or forced to have any kind of sexual activity by your partner or ex-partner?No01/22/2025Social Connection and Isolation PanelAnswerDate RecordedIn a typical week, how many times do you talk on the phone with family, friends, or neighbors?More than three times a week01/22/2025How often do you get together with friends or relatives?Once a week01/22/2025How often do you attend sabianist or zoroastrianism services?More than 4 times per year01/22/2025Do you belong to any clubs or organizations such as sabianist groups, unions, fraternal or athletic groups, or school groups?No 01/22/2025How often do you attend meetings of the clubs or organizations you belong to?Never01/22/2025re you , , , , never , or living with a partner?Gkncpzq0301/22/2025UDIT-CAnswerDate RecordedQ1: How often do you have a drink containing alcohol?Monthly or less01/22/2025Q2: How many drinks containing alcohol do you have on a typical day when you are drinking?Patient does not drink01/22/2025Q3: How often do you have six or more drinks on one occasion?Never01/22/2025Overall Financial Resource Strain (CARDIA) AnswerDate RecordedHow hard is it for you to pay for the very basics like food, housing, medical care, and heating?Not very hard01/22/2025[facility] - Occupational Stress QuestionnaireAnswerDate RecordedDo you feel stress - tense, restless, nervous, or anxious, or unable to sleep at night because yourmind is troubled all the time - these days?To some iweeaf3401/22/2025 Exercise Vital SignAnswerDate RecordedOn average, how many days per week do you engage in moderate to strenuous exercise (like a brisk walk)?1 day01/22/2025On average, how many minutes do you engage in exercise at this level?30 min 01/22/2025Hunger Vital SignAnswerDate RecordedWithin the past 12 months, you worried that your food would run out before you got the money to buymore.Never true01/22/2025Within the past 12 months, the food you bought just didn't last and you didn't have money to get more.Never true01/22/2025PRAPARE - TransportationAnswerDate RecordedIn the past 12 months, has lack of transportation kept you from medical appointments or from getting medications?No 01/22/2025In the past 12 months, has lack of transportation kept you from meetings, work, or from getting things needed for daily living?No01/22/2025 Housing Stability Vital SignAnswerDate RecordedIn the last 12 months, was there a time when you were not able to pay the mortgage or rent on time?Patient lckkmvd1209/12/2023In the last 12 months, how many places have you lived?1 09/12/2023In the last 12 months, was there a time when you did not have a steady place to sleep or slept in ashelter (including now)?No09/12/2023Housing Stability Vital SignAnswerDate RecordedIn the last 12 months, was there a time when you were not able to pay the mortgage or rent on time?Patient declined 01/22/2025Number of Times Moved in the Last YearNot on file01/22/2025t any time in the past 12 months, were you homeless or living in a jail (including now)? Patient bmkdswur80/28/2025CommentsUnknownSex and Gender InformationValue Date RecordedSex Assigned at BirthNot on fileLegal CleKnnvyl45/15/2023 6:35 PM EDTGender IdentityNot on fileSexual OrientationNot on file Last Filed Vital Signs Vital SignReadingTime TakenCommentsBlood Nfdssqho062/9008 9:45 AM EDT Kvqsi383405/01/2025 9:45 AM WTPXljsnznrbrs77.6 ??C (97.8 ??F)05/01/2025 9:45 AM EDTRespiratory Bcns727802/15/2025 10:57 AM EDTOxygen Udamntjszx43%05/01/2025 9:45 AM EDTInhaled Oxygen Concentration--Cuvqhu76.4 kg (188 lb 3.2 oz)05/01/2025 9:45 AM XFQOlsdnw824.5 cm (5' 2 )11/06/2024 12:48 PM ESTBody Mass Index34.42 11/06/2024 12:48 PM EST Plan of Treatment Health MaintenanceDue DateLast DoneCommentsCT Htnmkmivypps68/11/1977Colonoscopy 1976Colorectal Cancer Azselmdon20/11/1977FIT-DNA1976FIT1976 FOBT1976 7044Krjcgcariwmdb57/11/1977Pneumococcal Vaccine: Pediatrics (0 to 5 Years) and At-Risk Patients (6 to 64 Years) (1 of 2 - PCV)12/06/1995Pap Smear /1Diabetes: Hemoglobin A1C5001/22/2025, 08/08/2024, 02/01/2024, Additional history cswrqxWvmayviyq90, 09/13/2024, 09/13/2023 (Patient Refused)Diabetes: Urine Protein Lapwxpoeq05/15/2026 02/08/2025, 3Diabetes: Retinopathy Wbfjrgrrw08/09/2023, 10/28/2022ervical Cancer Qevtpbxbd22/29/2029HPV/Otqvnd74 Influenza VaccineDiscontinued Procedures Procedure NamePriorityDate/TimeAssociated DiagnosisCommentsPOCT GLYCOSYLATED HEMOGLOBIN (HGB A1C)Aninmnh6301/22/2025 9:28 AM EDT Type 2 diabetes mellitus without complication, without long-term current use of insulin (HCC) MM TOMOSYNTHESIS SCREENING BI09/13/2024 4:12 PM EST from Last 3 Months or Most Recently Relevant to Health Maintenance Results * POCT glycosylated hemoglobin (Hb A1C) docked device (01/22/2025 9:28 AM EDT) ComponentValueRef RangeTest MethodAnalysis TimePerformed AtPathologist SignatureHemoglobin A1C5.6%Specimen (Source)Anatomical Location / Laterality Collection Method / VolumeCollection TimeReceived TimeBloodVenous blood specimen / Tjeyvdm2601/22/2025 9:28 AM EDT Narrative Authorizing ProviderResult TypeResult StatusMercy Hospital [facility] Luceroallegheny valley hospitalrhiannon NPPOINT OF CARE TEST ENTER/EDIT ORDERABLESFinal Result * MM TOMOSYNTHESIS SCREENING BI (09/13/2024 4:12 PM EST)Anatomical Region LateralityModalityOtherSpecimen (Source)Anatomical Location / Laterality Collection Method / VolumeCollection TimeReceived Time09/13/2024 4:12 PM EST Narrative 09/13/2024 4:13 PM EST [facility] ?[address] ? [place] [address] ? Mammography Report ? Signed ? Patient: [facility] ?MR#: [id number] ?? : 1975 ?Acct:[id number] ?? Age/Sex: 48 / F ?ADM Date: 12/18/24 ?? Loc: MAMMO ? Attending Dr: Halima Moncada BILINGUAL INTERPRETER ? Ordering Physician: Halima Moncada NP ?Results: ? Date of Service: 09/13/24 ?Follow Up: ? Procedure(s): MM tomosynthesis screening BI ?? Accession Number(s): [id number] ? cc: Halima Moncada BILINGUAL INTERPRETER ? Patient Name: ? TATIANA BREWSTER ? MR#: [id number] ? : 1975 ? Exam Date: 09/13/2024 ?? Ordering Doctor: KENDRA Moncada CNP ? RADIOLOGY REPORT ? PROCEDURE: ? MM TOMOSYNTHESIS SCREENING BI ? COMPARISON: ? MG MAMM SCREEN BROWN W CAD, 10/11/2017. ? INDICATIONS: ? Screening ? Calculator Name ? NCI Breast Cancer Risk Assessment Tool ?? 5 Year Breast Cancer Risk ? 0.80% ?? Lifetime Breast Cancer Risk ? 8.40% ?? Personal Breast Cancer ?No ?? Personal Ovarian Cancer ? No ?? Treatments ? None ?? Family Cancers ? None ? LOCATION: ? [facility] ? BREAST COMPOSITION: ? There are scattered areas of fibroglandular density. ? FINDINGS: ? DIAGNOSTIC CATEGORY 1--NEGATIVE. ? RIGHT BREAST: ??No significant suspicious finding. ??No significant change has ?? occurred. ? LEFT BREAST: ??No significant suspicious finding. ??No significant change has ?? occurred. ? RECOMMENDATIONS: ? ROUTINE MAMMOGRAM AND CLINICAL EVALUATION IN 12 MONTHS. ? PLEASE NOTE: ??A NORMAL MAMMOGRAM DOES NOT EXCLUDE THE POSSIBILITY OF BREAST ?? CANCER. ??A CLINICALLY SUSPICIOUS PALPABLE LUMP SHOULD BE BIOPSIED. ? Dictated by: Hugo Gant M.D. on 09/13/2024 at 16:10 ? Approved by: Hugo Gant M.D. on 09/13/2024 at 16:12 ? Dictated By: ?Hugo Gant M.D. ? Signed By: ?09/13/ 1613 ? DD/ 1612 ? TD/TT: ? General Dentist: Procedure Note Radiology, Radiologist, MD - 09/13/2024 [place] [address] Mammography Report Signed Patient: TATIANA BREWSTER LMR#: [id number] : 1975Acct:[id number] Age/Sex: 48 / FADM Date: 09/13/24 Loc: MAMMO Attending Dr: Halima Moncada NP Ordering Physician: Halima Moncadaesults: Date of Service: 09/13/24Follow Up: Procedure(s): MM tomosynthesis screening BI Accession Number(s): [id number] cc: Halima Moncada NP Patient Name: TATIANA BREWSTER MR#: [id number] : 1975 Exam Date: 09/13/2024 Ordering Doctor: KENDRA Moncada HAIR BLENDER RADIOLOGY REPORT PROCEDURE: MM TOMOSYNTHESIS SCREENING BI COMPARISON: MG MAMM SCREEN BROWN W CAD, 10/11/2017. INDICATIONS: Screening Calculator Name NCI Breast Cancer Risk Assessment Tool 5 Year Breast Cancer Risk 0.80% Lifetime Breast Cancer Risk 8.40% Personal Breast Cancer No Personal Ovarian Cancer No Treatments None Family Cancers None LOCATION: [facility] BREAST COMPOSITION: There are scattered areas of fibroglandulardensity. FINDINGS: DIAGNOSTIC CATEGORY 1--NEGATIVE. RIGHT BREAST: No significant suspicious finding. No significant changehas occurred. LEFT BREAST: No significant suspicious finding. No significant changehas occurred. RECOMMENDATIONS: ROUTINE MAMMOGRAM AND CLINICAL EVALUATION IN 12 MONTHS. PLEASE NOTE: A NORMAL MAMMOGRAM DOES NOT EXCLUDE THE POSSIBILITY OFBREAST CANCER. A CLINICALLY SUSPICIOUS PALPABLE LUMP SHOULD BE BIOPSIED. Dictated by: Hugo Gant M.D. on 09/13/2024 at 16:10 Approved by: Hugo Gant M.D. on 09/13/2024 at 16:12 Dictated By: Hugo Gant M.D. Signed By:09/13/241612 DD/ 11 TD/TT: General Dentist: Authorizing ProviderResult TypeResult StatusLisa Aicalleghen[facility] hospitalz NPCLINISYNC IMAGING Final Result from Last 3 Months or Most Recently Relevant to Health Maintenance Insurance Care Teams Team MemberRelationshipSpecialtyStart DateEnd Date Javier West MD [facility] - [facility]24 Halima Moncada NP [address] [facility] [place] [address] PCP - [facility]09/27/24 Becky Pace DO [address] [place] [address] Referring EawxxvbhmFtsgtbxyk80/17/24
--- OUTSIDE RECORDS SUMMARY | 2025-09-21 07:03 | XMS_ITS | Clinical Summary ---
Author Organization [facility] Address [address] [place] [address] Care Team Providers Care Tree Shear Operator Name Role Phone House , Claude GRANT Primary Care Provider + Allergies No known active allergies Medications MedicationSigDispense QuantityRefillsLast FilledStart DateEnd DateStatus sertraline (ZOLOFT) 100 mg tablet Take 100 mg by mouth once daily.Active topiramate (TOPAMAX) 100 mg tablet Take 100 mg by mouth once daily.Active topiramate (TOPAMAX) 25 mg tablet Take 25 mg by mouth once daily.Active tiZANidine (ZANAFLEX) 4 mg tablet Take 2 mg by mouth daily at bedtime. Takes 2, 2 mg. Tablets at bedtimeActive amphetamine-dextroamphetamine XR (ADDERALL XR) 20 mg 24 hr capsule Take 20 mg by mouth once daily.Active etonogestrel subdermal implant 68 mg (NEXPLANON) 68 mg by SUBDERMAL route one time only.Active VITAMIN B COMPLEX (SUPER B COMPLEX ORAL) Take by mouth twice daily.Active IODINE ORAL Take 50 mg by mouth twice daily. Iodine + Potassium IodideActive Magnesium Oxide-Mg Amino Acid Chelate (MAGNESIUM) 300 mg cap 300 mg twice daily.Active CHOLECALCIFEROL, VITAMIN D3, (D3-2000 ORAL) Take by mouth once daily.Active selenium 200 mcg tab Take 1 tablet by mouth once daily.Active MULTIVIT &MINERALS/FERROUS FUM (MULTI VITAMIN ORAL) Take by mouth once daily.Active Ascorbic Acid (VITAMIN C) 1,000 mg tablet Take 1,000 mg by mouth twice daily.Active metFORMIN ER (GLUCOPHAGE XR) 500 mg 24 hr tablet Indications:PCOS (polycystic ovarian syndrome)Take 3 tablets daily 90 tablet Active Active Problems ProblemNoted DateDiagnosed DatePCOS (polycystic ovarian syndrome)04/14/2016 Abnormal weight gain04/14/2016History of gestational diabetes mellitus (GDM) 04/14/2016 Family History Medical HistoryRelationCommentsStrokeFathermyocardial infarction [Other]Father RelationStatusCommentsFather Social History Tobacco UseTypesPacks/DayYears UsedDateSmoking Tobacco: NeverAlcohol UseStandard Drinks/WeekCommentsNo0 (1 standard drink = 0.6 oz pure alcohol)Comments NoSex and Gender InformationValueDate RecordedSex Assigned at BirthNot on file Legal CpaYftdji52/02/2012 8:10 AM ESTGender IdentityNot on fileSexual OrientationNot on file Last Filed Vital Signs Vital SignReadingTime TakenCommentsBlood Xqzsaoto327/67004/14/2016 7:52 AM EDT Dxvkk960904/14/2016 7:52 AM EDTTemperature--Respiratory Rate--Oxygen Saturation-- Inhaled Oxygen Concentration--Yltcxd67.2 kg (176 lb 12.8 oz)04/14/2016 7:52 AM XFKImztwp823 cm (5' 2.21 )04/14/2016 7:52 AM EDTBody Mass Index32.12004/14/2016 7:52 AM EDT Plan of Treatment Health MaintenanceDue DateLast DoneCommentsAnxiety Lkqluwnkm12/11/1995Depression Podtklqze51/11/1995HIV Brylzxzte10/11/1995Hepatitis C Kkvbfrvfy53/11/1995 DTaP,Tdap,Td Vaccine (1 - Tdap)12/06/1995Hepatitis B Vaccine (1 of 3 - 19+ 3- dose series)12/06/1995Cervical Cancer Roiprhxjw31/11/1998Mammogram Screening 2016CT Hujdcpwaxsac19/11/2022Cologuard (FIT-DNA)2Colonoscopy 2Colorectal Cancer Gqkwudczz78/11/2022Fecal Occult Blood2021 Tmwuacvxmmfbm74/11/2022Diabetes Awizcotpd64/08/2020, 07/20/2018, 01/25/2018, Additional history existsLipid Ewgjraird89, 04/14/2016Covid-19 Vaccine (2024- season)2025Influenza Vaccine (#1) 2025 Procedures Procedure NamePriorityDate/TimeAssociated DiagnosisCommentsBASIC METABOLIC PANEL Ywjtglr7404/14/2016 9:00 AM EDT PCOS (polycystic ovarian syndrome) LIPID PANEL, FFZLIIWDhurzcj57/19/2016 9:00 AM EDT PCOS (polycystic ovarian syndrome) from Last 3 Months or Most Recently Relevant to Health Maintenance Results * (ABNORMAL) LIPID PANEL BASIC (04/14/2016 9:00 AM EDT)ComponentValueRef Range Test MethodAnalysis TimePerformed AtPathologist CehpoxauzRikzmqcinyqg1958 - 149 mg/dL04/14/2016 11:30 AM [facility] LABORATORYCholesterol, Zrrjm656913 - 199 mg/dL04/14/2016 11:30 AM [facility] HDL Srvoalobexv04(L)>55 mg/dL04/14/2016 11:30 AM [facility] LABORATORYVLDL Zjkueayjqnm528 - 40 mg/dL04/14/2016 11:30 AM [facility] LABORATORYLDL Cholesterol, Fozjrdbesi33644 - 129 mg/dL04/14/2016 11:30 AM [facility] LABORATORYFasting Yzfq13gzr56/19/2016 9:04 AM [facility] LABORATORYTC:HDL Ratio4.231.00 - 5.00004/14/2016 11:30 AM [facility] LABORATORYLDL:HDL Ratio2.930.50 - 3.55 04/14/2016 11:30 AM [facility] LABORATORYNon HDL Gjvngqwusig171 90 - 159 mg/dL04/14/2016 11:30 AM [facility] LABORATORYSpecimen (Source)Anatomical Location / LateralityCollection Method / VolumeCollection TimeReceived TimeBlood specimen (specimen)BLOOD SPECIMEN / Yzftomh3104/14/2016 9:00 AM EDT04/14/2016 9:03 AM EDT Narrative Authorizing ProviderResult TypeResult StatusBrigid Ruano MDLABORATORY Final ResultPerforming OrganizationAddressCity/State/ZIP CodePhone Number [facility] [address] [place] [address] * (ABNORMAL) BASIC METABOLIC PNL (04/14/2016 9:00 AM EDT)ComponentValueRef Range Test MethodAnalysis TimePerformed AtPathologist ZmippyoxsNjvdzwk6313 - 100 mg/dL04/14/2016 11:30 AM [facility] MA[facility] QWBVXOWAYHISL354 - 25 mg/dL 04/14/2016 11:30 AM [facility] LABORATORYCreatinine0.63(L)0.70 - 1.40 mg/dL04/14/2016 11:30 AM [facility] HLIVUBWUISVbvbgv723096 - 148 mmol/L04/14/2016 11:30 AM [facility] LABORATORYPotassium 4.33.5 - 5.0 mmol/L04/14/2016 11:30 AM [facility] Tiojbqis70240 - 110 mmol/L04/14/2016 11:30 AM [facility] XUWIRRIICHPJ72148 - 32 mmol/L04/14/2016 11:30 AM [facility] LABORATORYAnion Mjr226 - 15 mmol/L04/14/2016 11:30 AM [facility] LABORATORYCalcium9.28.5 - 10.5 mg/dL04/14/2016 11:30 AM [facility] LABORATORYeGFR->6007 11:30 AM [facility] MA[facility] LABORATORYeGFR-All Other Races>60.04/14/2016 11:30 AM [facility] MA[facility] LABORATORYComment: eGFR (Estimated GFR) Units of measure: mL/min/1.73 meters squared eGFR is derived from the reexpressed MDRD Study equation using the following parameters: serum creatinine, age, gender and race. The creatinine assay has been calibrated to be traceable to IDMS. An eGFR <60 mL/min/1.73m2 for >3 months is consistent with chronic kidney disease. Refer to KDOQI guidelines for clinical interpretation. In patients with unstable renal function, e.g. those with acute kidney injury, the eGFR may not accurately reflect actual GFR. Specimen (Source)Anatomical Location / LateralityCollection Method / Volume Collection TimeReceived TimeBlood specimen (specimen)BLOOD SPECIMEN / Unknown 04/14/2016 9:00 AM EDT04/14/2016 9:03 AM EDT Narrative Authorizing ProviderResult TypeResult StatusBrigid Ruano MDLABORATORY Final ResultPerforming OrganizationAddressCity/State/ZIP CodePhone Number [facility] [address] [place] [address] from Last 3 Months or Most Recently Relevant to Health Maintenance [place] [address] Care Teams Team MemberRelationshipSpecialtyStart DateEnd Date Claude Nina Sr., PCP - GeneralFanyly Medicine10/29/15
--- OUTSIDE RECORDS SUMMARY | 2025-09-21 07:03 | XMS_ITS | Patient Health Record ---
Author Organization [facility] [place] Address [address] [place] [address] Care Team Providers Care Museum Librarian Name Role Phone Claude Nina DO Primary Care Provider Unavaila ble Reason For Referral No Information Medications Medication SIG (Take, Route, Frequency, Duration) Notes Start Date End Date Status aspirin PRN ActiveJanumet 50 mg-1000 bootzeao32/01/1900Activemultivitamin Multiple Eezrsiig74/01/1900Active Plan Of Treatment No Information Insurance Providers Payer Name Payer Address Payer Phone Subscriber Number Group Number Insured Name Patient Relationship to Insured Coverage Start Date Coverage End Date SELF PAY ON PATIENT DEMOGRAPHICS Latrell Brewsterelf - patient is the [id number]/05/2013
--- OUTSIDE RECORDS SUMMARY | 2025-09-21 07:04 | XMS_ITS | Patient Health Record ---
Author Organization [facility] Address [address] [place] [address] Care Team Providers Care Textile Technologist Name Role Phone Dr. Walker Ramirez Primary Care Provider Violetta Henderson Unavailable [phone] Iris Ellison Unavailable [phone] Reason For Referral No Information Encounters Encounter Location Date Provider Diagnosis [facility] [address] [place] [address] 11/08/[address] [facility] [place] [address]/28/2025 Walker Dukes for dental examination and cleaning with abnormal findings Z01.21 ; Other dental procedure status Z98.818 ; Disturbances in tooth eruption K00.6 ; Acute gingivitis, plaque induced K05.00 ; Dental caries on pit and fissure surface penetrating into dentin K02.52 and Partial loss of teeth, un specified cause, class I K08.401[facility] [address] [place] [address]/Joseph RizkDental caries on pit and fissure surface penetrating into dentin K02.52[facility] [address] [place] [address]/Joseph RizkDental caries on pit and fissure surface penetrating into dentin K02.52Fa[facility] [address] [place] [address]/09/2024bhanu EllisonSt. [facility] [place] [address]/JoCaverna Memorial Hospitalzk Assessments Encounter Date Diagnosis (ICD Code) Assessment Notes Treatment Notes Treatment Clinical Notes Section Notes 01/09/2025 Dental caries on pit and fissure surface penetrating into dentin (ICD-10 - K02.52) 01/16/2025Dental caries on pit and fissure surface penetrating into dentin (ICD- 10 - K02.52)10/24/2024Encounter for dental examination and cleaning with abnormal findings (ICD-10 - Z01.21)10/24/2024Other dental procedure status (ICD- 10 - Z98.818)10/24/2024Disturbances in tooth eruption (ICD-10 - K00.6)10/24/2024 Acute gingivitis, plaque induced (ICD-10 - K05.00)10/24/2024Dental caries on pit and fissure surface penetrating into dentin (ICD-10 - K02.52)10/24/2024Partial loss of teeth, unspecified cause, class I (ICD-10 - K08.401) Plan Of Treatment Next Appt Details Provider Name:Iris Ellison, 09/21/2025 01:00:00 PM, [address] [place], [place], [address], Provider Name:Tonie Dayna, 02/20/2026 11:15:00 AM, [address] [place], [place], [address], Insurance Providers Payer Name Payer Address Payer Phone Subscriber Number Group Number Insured Name Patient Relationship to Insured Coverage Start Date Coverage End Date [facility] [place] DQ Terminated 24 [address] [place] [address] [id number] RICCO SEPULVEDAelf - patient is the [id number] 2024[employer]ental [employer] [place] BCBS Termed [address] [place] [id number] SEPULVEDA, RICCOelf - patient is the [id number] 2024[employer] COMMERCIAL[address] [address] [place] [phone] SEPULVEDA, RICCOelf - patient is the [id number] 2024[employer] [place] MEDICARE[address] [address] [place] [phone] SEPULVEDA, Sherif - patient is the [id number] 2024Dental Wrap [facility] [place] [address] [place] [phone], Sherif - patient is the [id number] 2024
--- OUTSIDE RECORDS SUMMARY | 2025-09-21 07:04 | XMS_ITS | Clinical Summary ---
Author Organization [facility] Address [address] [place] [address] Care Team Providers Care Kindergarten Tutor Name Role Phone Halima Moncada MD Primary Care Provider [phone] Medications MedicationSigDispense QuantityRefillsLast FilledStart DateEnd DateStatus amitriptyline (Elavil) 50 mg tablet TAKE 1 TABLET BY MOUTH at 8pmActive ascorbic acid (Vitamin C) 1,000 mg tablet Take 1,000 mg by mouth twice a day.Active atorvastatin (Lipitor) 10 mg tablet Take 10 mg by mouth.5Active biotin 1 mg capsule Take by mouth.Active levothyroxine (Synthroid, Levoxyl) 50 mcg tablet Take 50 mcg by mouth.3Active magnesium oxide-Mg AA chelate 300 mg capsule 300 mg twice a day.Active meloxicam (Mobic) 15 mg tablet Take 15 mg by mouth in the morning. with foodActive omeprazole (PriLOSEC) [address] capsule Take 20 mg by mouth.5Active ondansetron (Zofran) 4 mg tablet 1 every 8 hours for migraine associated nausea and nikysfqv23/09/2024Active Ozempic 1 mg/dose (4 mg/3 mL) pen injector Inject 1 mg under the skin.5Active sertraline (Zoloft) 100 mg tablet take 2 tablets by mouth in the morningActive tiZANidine (Zanaflex) 4 mg tablet take 2 tablets by mouth once daily at bedtimeActive Family History Medical HistoryRelationNameCommentsHypertensionFatherPhilStrokeFatherPhilCancer Paternal GrandfatherNormanStrokePaternal GrandmotherElla MaeRelationNameStatus CommentsFatherPhilPaternal GrandfatherNormanPaternal GrandmotherElla Pan Social History Tobacco UseTypesPacks/DayYears UsedDateSmoking Tobacco: NeverSmokeless Tobacco: Never Tobacco Cessation:Counseling Given: Not Answered Alcohol UseStandard Drinks/WeekCommentsNever0 (1 standard drink = 0.6 oz pure alcohol)CommentsUnknownSex and Gender InformationValueDate RecordedSex Assigned at BirthNot on fileLegal HxaMrbjsk82/04/2025 10:24 AM EDTGender IdentityNot on fileSexual OrientationNot on file Last Filed Vital Signs Vital SignReadingTime TakenCommentsBlood Pressure--Pulse--Temperature-- Respiratory Rate--Oxygen Saturation--Inhaled Oxygen Concentration--Jfedyw36.5 kg (184 lb)02/14/2025 1:20 PM EDTHeight--Body Mass Index-- Plan of Treatment Health MaintenanceDue DateLast DoneCommentsCT Werulaoezizh63/11/1977Colonoscopy 1976Colorectal Cancer Awmtyrvuk23/11/1977Diabetes: Hemoglobin A1C 1976FIT-DNA1976FIT1976FOBT1976 9780Ceuoxwzzyzhhe70/11/1977 Diabetes: Retinopathy Wpvlgndwz18/11/1987Depression Uvamegzte09/11/1989Diabetes: Urine Protein Puferluug61/11/1996Hepatitis B Vaccines (1 of 3 - 19+ 3-dose series)12/06/1995Pneumococcal Vaccine: Pediatrics (0 to 5 Years) and At-Risk Patients (6 to 64 Years) (1 of 2 - PCV)12/06/1995Pap Smear1997Adult Rwfadgb9812/05/1998Cervical Cancer Yzhsgywtx70/11/2007HPV/Gqyoet5612/05/2006 Xrrnaegkv79/15/COVID-19 Vaccine (2024- season)2025 Influenza Vaccine (#1)2025Zoster Vaccines (1 of 2)2026HIB Vaccines Aged OutNo longer eligible based on patient's age to complete this topicHPV VaccinesAged OutNo longer eligible based on patient's age to complete this topic IPV VaccinesAged OutNo longer eligible based on patient's age to complete this topicMeningococcal B VaccineAged OutNo longer eligible based on patient's age to complete this topicMeningococcal VaccineAged OutNo longer eligible based on patient's age to complete this topicRotavirus VaccinesAged OutNo longer eligible based on patient's age to complete this topic Insurance Care Teams Team MemberRelationshipSpecialtyStart DateEnd Date Halima Moncada MD [address] [place] [address] PCP - GeneralNurse Practitioner01/03/25
== END 2025-09-21 07:01 | disposition home or self-care (01) ==
LOC: US 07:00
PROVIDERS: PCP Nurse Practitioner; Visit Provider Nurse Practitioner
DX: R22.2 Localized swelling, mass and lump, trunk (principal)
CPT/HCPCS: 76604